=== PATIENT | female | born 1960 | race Caucasian/White ===

== ENCOUNTER 2016-02-22 18:50 | Inpatient (IN) | payer MEDICAID ==
[~2016-02-22] VITALS: Ht 180.3 cm; Wt 145.2 kg
[2016-02-22] VITALS (9 sets, daily range): BP systolic 70–94; BP diastolic 37–58; PULSE 87–120; RESP 18–20; TEMP 99.7; O2SAT 96–100
[~2016-02-22 18:50] MED LIST: ABIL5TAB6 PO; ALBU0.08 NEB; ALPR.5 PO; AMIT50TA3 PO; ASPI81CH CHEW; COLA100C3 PO; FERR325T PO; GABA600T PO; MAPA325T PO; METO-309 PO; MULTTAB67 PO; NITR1SUB3 SL; PRED5TAB PO; ROXI15TA9 PO; ZANTTAB PO; ZYVO600T PO
[2016-02-22] MEDS ORDERED: SODIUM CHLOR 0.9% 1000 ML INJ 900 ML IV ONE (19:00)
[2016-02-22] MEDS ORDERED: SODIUM CHLOR 0.9% 1000 ML INJ 1,000 ML IV ONE ×5 (19:00→20:19)
[2016-02-22] MEDS ORDERED: VANCOMYCIN INJ 1,000 MG in SODIUM CHLOR 0.9% 250 ML INJ 250 ML IV STA ×2 (19:00→20:19)
[2016-02-22] MEDS ORDERED: AZTREONAM INJ 2,000 MG in SODIUM CHLORIDE 0.9% INJ 100 ML IV STA ×2 (19:00→20:19)
[2016-02-22] MEDS ORDERED: metroNIDAZOLE 500 MG INJ 100 ML IV STA ×2 (19:00→20:19)
[2016-02-22] MEDS ORDERED: ETOMIDATE 20 MG/10 ML VIAL ONE (19:42)
[2016-02-22] MEDS ORDERED: MIDAZOLAM 100 MG/ML INJ 100 ML ONE (20:00)
--- NOTE | 2016-02-22 20:08 | RADRPT ---
EXAM DATE/TIME: 02/22/2016 19:45 [facility] COMPARISON: No previous studies available for comparison. INDICATIONS : Shortness of breath. MEDICAL HISTORY : Unobtainable. SURGICAL HISTORY : Unobtainable. ENCOUNTER: Initial ACUITY: 1 day PAIN SCORE: Non-responsive. LOCATION: Bilateral chest FINDINGS: A single view of the chest demonstrates basilar airspace disease, left greater than right. No signifi cant effusion. No pneumothorax. Heart size enlarged. CONCLUSION: 1. Basilar airspace disease, stable to slightly improved from January 24, 2016. Cardiomegaly. Braden Gomez MD on February 22, 2016 at 20:06 Board Certified Radiologist. This report was verified electronically.
[2016-02-22] MEDS ORDERED: SODIUM CHLOR 0.9% 1000 ML INJ 700 ML IV ONE (20:19)
--- NOTE | 2016-02-22 20:41 | RADRPT ---
EXAM DATE/TIME: 02/22/2016 20:07 [facility] COMPARISON: CHEST SINGLE AP, February 22, 2016, 19:45. INDICATIONS : Post Procedure Intubation. MEDICAL HISTORY : Unobtainable. SURGICAL HISTORY : Unobtainable. ENCOUNTER: Initial ACUITY: 1 day PAIN SCORE: Non-responsive. LOCATION: Bilateral chest FINDINGS: Endotracheal tube tip is in the proximal right mainstem bronchus. This should be withdrawn about 3 cm . There is mild basilar airspace disease. No significant effusion. No pneumothorax. CONCLUSION: 1. Intubation with endotracheal tube tip in right mainstem bronchus. This should be withdrawn about 3 cm. Braden Gomez MD on February 22, 2016 at 20:39 Board Certified Radiologist. This report was verified electronically.
[2016-02-22 21:18] LABS: BLOOD GAS BASE EXCESS 7.2 mmol/L (-2-2); BLOOD GAS CARBOXYHEMOGLOBIN 1.9 % (0-4); BLOOD GAS HCO3 33 mmol/L (22-26); BLOOD GAS METHEMOGLOBIN 1.9 % (0-2); BLOOD GAS O2 HGB SATURATION 96 % (90-100); BLOOD GAS OXYGEN CONTENT 19.3 Vol % (12.0-20.0); BLOOD GAS PCO2 68 mmHg (38-42); BLOOD GAS PO2 301 mmHG (61-120); BLOOD GAS TOTAL HGB 13.8 G/DL (12.0-16.0); TEMP CORR TO 98.6
[2016-02-22 21:20] LABS: OXYGEN DEVICE VENTILATOR; VENT SETTINGS AC
[2016-02-22 21:21] LABS: DRAW SITE RT RADIAL; FIO2 100 %; NUMBER OF ARTERIAL PUNCTURES 1; STAT YES; ULNAR PULSE PRESENT
[2016-02-22 21:31] LABS: AUTOMATED NEUTROPHIL # 29.1 TH/MM3 (1.8-7.7); BASOPHIL # 0.1 TH/MM3 (0-0.2); BASOPHIL % 0.4 % (0.0-2.0); EOSINOPHIL # 0.1 TH/MM3 (0-0.4); EOSINOPHIL % 0.2 % (0.0-4.0); HEMATOCRIT 44.7 % (35.0-46.0); LYMPH % 6.4 % (9.0-44.0); LYMPHOCYTE # 2.1 TH/MM3 (1.0-4.8); MEAN CELL VOLUME 86.1 FL (80.0-100.0); MEAN CORPUSCULAR HEMOGLOBIN 26.3 PG (27.0-34.0); MEAN CORPUSCULAR HGB CONC 30.6 % (32.0-36.0); MONO % 4.1 % (0.0-8.0); NEUT % 88.9 % (16.0-70.0); PLATELET COUNT 292 TH/MM3 (150-450); RED BLOOD COUNT 5.19 MIL/MM3 (4.00-5.30); RED CELL DISTRIBUTION WIDTH 17.6 % (11.6-17.2); WHITE BLOOD COUNT 32.7 TH/MM3 (4.0-11.0)
[2016-02-22 21:41] LABS: APTT (PATIENT) 31.7 SEC (24.3-30.1); INTERNATIONAL NORMALIZED RATIO 1.3 RATIO; PROTHROMBIN TIME - PATIENT 14.7 SEC (9.8-11.6)
[2016-02-22 21:51] LABS: HEMO FLAGS AUTO DIFF
--- NOTE | 2016-02-22 22:02 | PD ---
HPI Chief Complaint: Respiratory Distress Time Seen by Provider: 19:00 Travel History International Travel<30 days: No Contact w/Intl Traveler<30days: No Traveled to known affect area: No History of Present Illness HPI Patient is a 56 year old female who presents to ER from [place] with respiratory distress. Patient was noted to have decreased alertness and was responding very slowly at the detention. As per nursing, patient had a nonproductive cough with diminished lung sounds to her lungs. Patient was on continuous oxygen at 2 L, reports that her pulse ox was 84%. Call made to EMS to transport her to ER. Patient was hypoxic when [facility] arrived on scene, patient was placed on CPAP on arrival to emergency room. Patient reports shortness of breath upon arrival to ER. Patient currently on Macrobid for 7 days for diagnoses of ESBL with end date 02/23/16. Patient currently on Levaquin 500 mg for 7 days for stomach infection, stop date February 28, 2016, patient unable to provide history of present illness at this time. PFSH Past Medical History Anemia: Yes Anxiety: Yes Depression: Yes Cancer: No Cardiovascular Problems: Yes COPD: Yes Cerebrovascular Accident: No Diabetes: No Diminished Hearing: No Diverticulitis: Yes Endocrine: No GERD: Yes Herniated Disk: Yes Kidney Stones: Yes Musculoskeletal: Yes Psychiatric: Yes Reproductive: No Respiratory: Yes (SOB; WEARS O2 NIGHTLY) Sleep Apnea: Yes Thyroid Disease: No Past Surgical History Abdominal Surgery: Yes (COLOSTOMY; GASTRIC BYPASS) Social History Alcohol Use: No Tobacco Use: No Substance Use: No Allergies-Medications (Allergen,Severity, Reaction): Coded Allergies: Penicillin (Verified Allergy, Unknown, 02/22/16) *MDRO Multi-Drug Resistant Organism (Verified Adverse Reaction, Unknown, MRSA, 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 Zyvox (Linezolid) 600 Mg Tab 600 Mg PO Q12H 6 Days Lopressor (Metoprolol Tartrate) 50 Mg Tab 50 Mg PO Q12HR 30 Days Roxicodone (Oxycodone HCl) 15 Mg Tab 15 Mg PO Q4HR PRN Xanax (Alprazolam) 0.5 Mg Tab 0.5 Mg PO Q4H PRN Reported Multiple Vitamin 1 Tab 1 Tab PO DAILY Ferrous Sulfate 325 Mg Tab 325 Mg PO DAILY Mapap (Acetaminophen) 325 Mg Tab 650 Mg PO Q4HR PRN NTE: 3,000 MG IN 24 HRS Albuterol Neb (Albuterol Sulfate) 2.5 Mg/3 Ml Neb 2.5 Mg NEB Q8HR NEB PRN Abilify (Aripiprazole) 5 Mg Tab 5 Mg PO DAILY Nitroglycerin SL (Nitroglycerin) 0.4 Mg Subl 0.4 Mg SL DIRECTED PRN ONE TABLET UNDER THE TONGUE NEEDED FOR CHEST PAIN, MAY REPEAT EVERY FIVE MINUTES FOR A TOTAL OF 3 DOSES OR CALL 911 IF NO RELIEF Colace (Docusate Sodium) 100 Mg Cap 100 Mg PO BID Zantac 150 Maximum Strength (Ranitidine HCl) 150 Mg Tab 150 Mg PO BID Gabapentin 600 Mg Tab 1,200 Mg PO TID Aspirin 81 Mg Chew 81 Mg CHEW DAILY Amitriptyline (Amitriptyline HCl) 50 Mg Tab 50 Mg PO HS Review of Systems ROS Limitations: Altered Mental Status, Poor Historian, Other: (respiratory distress) Except as stated in HPI: all other systems reviewed are Neg Respiratory: Positive: Shortness of Breath Physical Exam Narrative GENERAL: Patient is in moderate distress SKIN: Warm and dry. HEAD: Atraumatic. Normocephalic. EYES: Pupils equal and round. No scleral icterus. No injection or drainage. ENT: No nasal bleeding or discharge. Mucous membranes pink and moist. NECK: Trachea midline. No JVD. CARDIOVASCULAR: Tachycardic. No murmur appreciated. RESPIRATORY: Accessory muscle use. Diffuse wheezing bilateral lobes of the lungs. Breath sounds equal bilaterally. GASTROINTESTINAL: Abdomen soft, non-tender, nondistended. Hepatic and splenic margins not palpable. MUSCULOSKELETAL: No obvious deformities. No clubbing. No cyanosis. No edema. NEUROLOGICAL: Awake and alert. No obvious cranial nerve deficits. Data Data Last Documented VS Vital Signs Date Time Temp Pulse Resp B/P Pulse Ox O2 Delivery O2 Flow Rate FiO2 02/22/16 21:30 103 18 82/43 100 Ventilator 02/22/16 21:30 60 02/22/16 19:27 99.7 Orders Electrocardiogram (02/22/16 19:00) Complete Blood Count With Diff (02/22/16 19:00) Comprehensive Metabolic Panel (02/22/16 19:00) Prothrombin Time / Inr (Pt) (02/22/16 19:00) Act Partial Throm Time (Ptt) (02/22/16 19:00) Magnesium (Mg) (02/22/16 19:00) Ckmb (Isoenzyme) Profile (02/22/16 19:00) Troponin I (02/22/16 19:00) Urinalysis - C+S If Indicated (02/22/16 19:00) Influenzae A/B Antigen (02/22/16 19:00) Blood Culture (02/22/16 19:00) Chest, Single Ap (02/22/16 19:00) Arterial Blood Gas (Abg) (02/22/16 19:00) Blood Glucose (02/22/16 19:00) Ecg Monitoring (02/22/16 19:00) Iv Access Insert/Monitor (02/22/16 19:00) Oximetry (02/22/16 19:00) Oxygen Administration (02/22/16 19:00) Vancomycin Inj (Vancomycin Inj) (02/22/16 19:00) Aztreonam Inj (Azactam Inj) (02/22/16 19:00) Metronidazole 500 Mg Inj (Flagyl 500 Mg (02/22/16 19:00) Sodium Chlor 0.9% 1000 Ml Inj (Ns 1000 M (02/22/16 19:00) Sodium Chlor 0.9% 1000 Ml Inj (Ns 1000 M (02/22/16 19:00) Sodium Chlor 0.9% 1000 Ml Inj (Ns 1000 M (02/22/16 19:00) Sodium Chlor 0.9% 1000 Ml Inj (Ns 1000 M (02/22/16 19:00) B-Type Natriuretic Peptide (02/22/16 19:00) Etomidate Inj (Amidate Inj) (02/22/16 19:42) Midazolam Inj (Versed Inj) (02/22/16 20:00) Chest, Single Ap (02/22/16 ) Vancomycin Inj (Vancomycin Inj) (02/22/16 20:19) Aztreonam Inj (Azactam Inj) (02/22/16 20:19) Metronidazole 500 Mg Inj (Flagyl 500 Mg (02/22/16 20:19) Sodium Chlor 0.9% 1000 Ml Inj (Ns 1000 M (02/22/16 20:19) Sodium Chlor 0.9% 1000 Ml Inj (Ns 1000 M (02/22/16 20:19) Sodium Chlor 0.9% 1000 Ml Inj (Ns 1000 M (02/22/16 20:19) Neurological Rass Scale Q30MX2,Q2HX4,Q4H (02/22/16 20:48) Fentanyl Drip (Fentanyl Drip) (02/22/16 21:00) Chest, Single Ap (02/22/16 ) Admit Order (Ed Use Only) (02/22/16 21:36) CKMB (02/22/16 20:35) CKMB% (02/22/16 20:35) Labs Laboratory Tests Test 02/22/16 02/22/16 20:35 20:50 White Blood Count 32.7 TH/MM3 Red Blood Count 5.19 MIL/MM3 Hemoglobin 13.7 GM/DL Hematocrit 44.7 % Mean Corpuscular Volume 86.1 FL Mean Corpuscular Hemoglobin 26.3 PG Mean Corpuscular Hemoglobin 30.6 % Concent Red Cell Distribution Width 17.6 % Platelet Count 292 TH/MM3 Mean Platelet Volume 10.7 FL Neutrophils (%) (Auto) 88.9 % Lymphocytes (%) (Auto) 6.4 % Monocytes (%) (Auto) 4.1 % Eosinophils (%) (Auto) 0.2 % Basophils (%) (Auto) 0.4 % Neutrophils # (Auto) 29.1 TH/MM3 Lymphocytes # (Auto) 2.1 TH/MM3 Monocytes # (Auto) 1.3 TH/MM3 Eosinophils # (Auto) 0.1 TH/MM3 Basophils # (Auto) 0.1 TH/MM3 CBC Comment AUTO DIFF Differential Total Cells 100 Counted Neutrophils % (Manual) 93 % Band Neutrophils % 1 % Lymphocytes % 3 % Monocytes % 3 % Neutrophils # (Manual) 30.7 TH/MM3 Differential Comment FINAL DIFF MANUAL Platelet Estimate NORMAL Platelet Morphology Comment NORMAL Ovalocytes 1+ Prothrombin Time 14.7 SEC Prothromb Time International 1.3 RATIO Ratio Activated Partial 31.7 SEC Thromboplast Time Sodium Level 141 MEQ/L Potassium Level 5.7 MEQ/L Chloride Level 101 MEQ/L Carbon Dioxide Level 33.7 MEQ/L Anion Gap 6 MEQ/L Blood Urea Nitrogen 30 MG/DL Creatinine 1.67 MG/DL Estimat Glomerular Filtration 32 ML/MIN Rate Random Glucose 120 MG/DL Calcium Level 8.4 MG/DL Magnesium Level 2.2 MG/DL Total Bilirubin 0.3 MG/DL Aspartate Amino Transf 32 U/L (AST/SGOT) Alanine Aminotransferase 23 U/L (ALT/SGPT) Alkaline Phosphatase 118 U/L Total Creatine Kinase 112 U/L Creatine Kinase MB LESS THAN 0.5 NG/ML Troponin I LESS THAN 0.02 NG/ML B-Type Natriuretic Peptide 20 PG/ML Total Protein 5.4 GM/DL Albumin 1.7 GM/DL Blood Gas Puncture Site RT RADIAL Blood Gas Patient Temperature 98.6 Blood Gas HCO3 33 mmol/L Blood Gas Base Excess 7.2 mmol/L Blood Gas Oxygen Saturation 96 % Arterial Blood pH 7.31 Arterial Blood Partial 68 mmHg Pressure CO2 Arterial Blood Partial 301 mmHG Pressure O2 Arterial Blood Oxygen Content 19.3 Vol % Arterial Blood 1.9 % Carboxyhemoglobin Arterial Blood Methemoglobin 1.9 % Blood Gas Hemoglobin 13.8 G/DL Oxygen Delivery Device VENTILATOR Blood Gas Ventilator Setting AC Blood Gas Inspired Oxygen 100 % MDM Medical Decision Making Medical Screen Exam Complete: Yes Emergency Medical Condition: Yes Interpretation(s) EKG at 2046: Sinus tach at 103 beats minute, QT/QTC: 314/374 Vital Signs Date Time Temp Pulse Resp B/P Pulse Ox O2 Delivery O2 Flow Rate FiO2 02/22/16 20:54 100 18 94/51 100 Ventilator 02/22/16 19:55 117 82/58 96 02/22/16 19:40 96 BiPAP 02/22/16 19:40 18 96 BiPAP 02/22/16 19:35 103 18 96 BiPAP 02/22/16 19:27 99.7 120 18 70/37 96 02/22/16 19:00 100 100 Differential Diagnosis Pneumonia, sepsis, CHF, COPD exacerbation, influenza, UTI, urosepsis Narrative Course Patient is a 56-year-old female who presents to the emergency room from [place] with acute onset shortness of breath. Patient presents to emergency room tachycardic, hypoxic, hypotensive. Patient was able to tell me that she felt short of breath, patient with history of COPD, patient was initially placed on BiPAP. Patient reevaluated at patient was placed on BiPAP, reports that she is not feeling any better. Patient persistently tachycardic with a heart rate of 117 and a blood pressure of 82/58. Patient in severe respiratory distress, decision was taken to the patient for airway protection. Patient does have SIRS criteria on arrival to ER. 30 cc/kg IV bolus of fluids ordered as well as broad-spectrum IV Unable to obtain peripheral line on patient, central line placed at right EJ broad spectrum antibiotics initiated in ER Patient hypotensive emergency room, levophed ordered Pt accepted by Dr Conklin Critical Care Narrative Aggregate critical care time was 60 minutes. Time to perform other separately billable procedures was not included in the critical care time. My time did not include minutes spent treating any other patients simultaneously or on activities that did not directly contribute to the patient's treatment. The services I provided to this patient were to treat and/or prevent clinically significant deterioration that could result in: , decompensation, deterioration I provided critical care services requiring my management, as noted below: Chart data review, documentation time, medication orders and management, vital sign assessments/reviewing monitor data, ordering and reviewing lab tests, ordering and interpreting/reviewing x-rays and diagnostic studies, care of the patient and discussion of the patient with the admitting physicians. Procedures Procedure Narrative After the risks and benefits were discussed the following procedure was performed: INTUBATION: The patient was put in optimal position for the procedure. Rapid sequence intubation was initiated by me using 20milligrams of etomidate IV and 125 milligrams of succinylcholine IV. The patient was intubated with a 7.5 cuffed endotracheal tube. Tube placement was confirmed by visualization of the tube and balloon passing through the cords, capnometry and subsequent chest x-ray. Breath sounds were equal and well aerated bilaterally postintubation. No breath sounds over stomach. Patient tolerated procedure well. CENTRAL VENOUS LINE: The site was prepped with Betadine and sterilely draped. It was infiltrated with 1% lidocaine plain. The deep vein was cannulated using normal Seldinger technique. A triple lumen central line was placed in the right IJ site and secured with simple interrupted suture. The site was sterilely dressed. The patient tolerated the procedure well. Diagnosis Primary Impression: VDRF Additional Impressions: Sepsis sepsis Admitting Information Admitting Physician Requests: Trina Reed 6, 2017 22:02
[2016-02-22 22:09] LABS: BANDS 1 % (0-6); NEUTROPHIL # MANUAL DIFF 30.7 TH/MM3 (1.8-7.7); OVALOCYTES 1+ (NORMAL); PLATELET ESTIMATE SMEAR NORMAL (NORMAL); PLATELET MORPHOLOGY NORMAL (NORMAL); POLYS (SEG NEUTROPHILS) 93 % (16-70); SCAN/DIFF FINAL DIFF MANUAL; WBC DIFF SAMPLE 100
--- NOTE | 2016-02-22 22:21 | RADRPT ---
EXAM DATE/TIME: 02/22/2016 21:33 [facility] COMPARISON: No previous studies available for comparison. INDICATIONS : Post Procedure Central Line. MEDICAL HISTORY : Unobtainable. SURGICAL HISTORY : Unobtainable. ENCOUNTER: Initial ACUITY: 1 day PAIN SCORE: Non-responsive. LOCATION: Bilateral chest FINDINGS: A single view of the chest demonstrates endotracheal tube in satisfactory position. Right central prasanth e in right brachiocephalic vein. Subsegmental airspace disease at the bases, left greater than right. No effusion. No pneumothorax. CONCLUSION: 1. Endotracheal tube and right central line in satisfactory position. Subsegmental airspace disease a t the bases, left greater than right. Braden Gomez MD on February 22, 2016 at 22:18 Board Certified Radiologist. This report was verified electronically.
[2016-02-22] MEDS: fentaNYL DRIP 250 ML IV SCH (22:31)
[2016-02-22] MEDS ORDERED: RESP: ALBUTEROL 2.5 MG/IPRATROPIUM 0.5 MG NEB (SCH) ONE (22:35)
[2016-02-22 22:36] LABS: ALKALINE PHOSPHATASE 118 U/L (45-117); ALT (GPT) 23 U/L (10-53); ANION GAP 6 MEQ/L (5-15); AST (GOT) 32 U/L (15-37); BICARBONATE 33.7 MEQ/L (21.0-32.0); BLOOD UREA NITROGEN 30 MG/DL (7-18); CHLORIDE 101 MEQ/L (98-107); CREATINE KINASE 112 U/L (26-192); GLOMERULAR FILTRATION RATE 32 ML/MIN (>89); MAGNESIUM 2.2 MG/DL (1.5-2.5); SODIUM (NA) 141 MEQ/L (136-145); TOTAL BILIRUBIN ADULT 0.3 MG/DL (0.2-1.0)
[2016-02-22 22:37] LABS: POTASSIUM 5.7 MEQ/L (3.5-5.1)
[2016-02-22] MEDS ORDERED: MAGNESIUM HYDROXIDE SUSP 30 ML CUP PO PRN (22:45)
[2016-02-22] MEDS ORDERED: MAGNESIUM OXIDE 400 MG TAB PO PRN (22:45)
[2016-02-22] MEDS ORDERED: GLUCAGON 1 MG/ML VIAL OTHER PRN (22:45)
[2016-02-22] MEDS ORDERED: POTASSIUM PHOSPHATE MONOBASIC 500 MG TAB PO/TUBE PRN (22:45)
[2016-02-22] MEDS ORDERED: DEXTROSE 50% IN WATER 50 ML VIAL(D50) IV PUSH PRN (22:45)
[2016-02-22] MEDS ORDERED: ONDANSETRON HCL 4 MG/2 ML VIAL IV PRN (22:45)
[2016-02-22] MEDS ORDERED: SENNOSIDES 8.6 MG TAB PO PRN (22:45)
[2016-02-22] MEDS ORDERED: POTASSIUM PHOSPHATE INJ 30 MMOL in SODIUM CHLOR 0.9% 250 ML INJ 250 ML IV PRN (22:45)
[2016-02-22] MEDS ORDERED: BISACODYL 10 MG SUPP RECTAL PRN (22:45)
[2016-02-22] MEDS ORDERED: MISCELLANEOUS NURSING INFORMATION XX SCH (22:45)
[2016-02-22] MEDS ORDERED: CHLORHEXIDINE GLUCONATE 2 % 1 PACK (2 CLOTHS) TOP PRN (22:45)
[2016-02-22] MEDS ORDERED: SODIUM PHOSPHATE INJ 30 MMOL in SODIUM CHLOR 0.9% 250 ML INJ 240 ML IV PRN (22:45)
[2016-02-22] MEDS ORDERED: MAGNESIUM SULFATE INJ 4 GM in SODIUM CHLORIDE 0.9% INJ 92 ML IV PRN (22:45)
[2016-02-22] MEDS ORDERED: POTASSIUM CHLOR 40 MEQ PREMIX 100 ML IV PRN (22:45)
[2016-02-22] MEDS ORDERED: MAGNESIUM SULFATE INJ 2 GM in SODIUM CHLORIDE 0.9% INJ 96 ML IV PRN (22:45)
[2016-02-22] MEDS ORDERED: POTASSIUM CL 40 MEQ/30 ML LIQ UDC PO/TUBE PRN ×2 (22:45)
[2016-02-22] MEDS ORDERED: POTASSIUM CHLOR 20 MEQ PREMIX 100 ML IV PRN ×2 (22:45)
[2016-02-22] MEDS ORDERED: SODIUM CHLORIDE 0.9% FLUSH 5 ML FLUSH IV FLUSH PRN (22:45)
[2016-02-22] MEDS ORDERED: POTASSIUM PHOSPHATE MONOBASIC 500 MG TAB PO PRN (22:45)
[2016-02-22 22:50] LABS: CKMB LESS THAN 0.5 NG/ML (0.5-3.6)
[2016-02-22] MEDS ORDERED: TERBUTALINE INJ 1 MG/ML AMP SQ PRN (23:00)
[2016-02-23] VITALS (24 sets, daily range): BP systolic 78–120; BP diastolic 46–73; PULSE 84–124; RESP 16–24; TEMP 98.1–101.1; O2SAT 95–100
[2016-02-23 00:29] LABS: BLOOD GAS BASE EXCESS 4.5 mmol/L (-2-2); BLOOD GAS CARBOXYHEMOGLOBIN 2.2 % (0-4); BLOOD GAS HCO3 28 mmol/L (22-26); BLOOD GAS METHEMOGLOBIN 1.6 % (0-2); BLOOD GAS O2 HGB SATURATION 95 % (90-100); BLOOD GAS OXYGEN CONTENT 16.2 Vol % (12.0-20.0); BLOOD GAS PCO2 39 mmHg (38-42); BLOOD GAS PO2 79 mmHG (61-120); BLOOD GAS TOTAL HGB 12.1 G/DL (12.0-16.0); CRITICAL VALUE NO; DRAW SITE RT BRACHIAL; FIO2 60 %; NUMBER OF ARTERIAL PUNCTURES 1; OXYGEN DEVICE VENTILATOR; STAT NO; ULNAR PULSE PRESENT; VENT SETTINGS AC/PC20/P25/IT1.0/+5
[2016-02-23] MEDS: NOREPINEPHRINE-DEXTROSE DRIP 250 ML IV SCH ×3 (01:13→19:52)
[2016-02-23] MEDS ORDERED: fentaNYL DRIP 250 ML ONE (01:16)
[2016-02-23] MEDS: SODIUM CHLOR 0.9% 1000 ML INJ 1,000 ML IV SCH ×3 (01:33→22:35)
[2016-02-23] MEDS: fentaNYL DRIP 250 ML IV SCH (01:34)
[2016-02-23 02:39] LABS: BACTERIA, URINE MANY /hpf; BLOOD, URINE MOD (NEG); CALCIUM OXALATE CRYSTALS,URINE OCC /hpf; COMMENT (UR) CULTURE INDICATED; CULTURE IF INDICATED CULTURE INDICATED; GLUCOSE,URINE NEG (NEG); KETONE, URINE NEG (NEG); MUCUS URINE FEW /lpf (OCC); NITRITE,URINE NEG (NEG); SQUAMOUS EPITHELIAL CELL URINE 2 /hpf (0-5)
[2016-02-23 02:40] LABS: URINE COLOR DARK-BROWN (YELLW/STRAW)
[2016-02-23] MEDS: MIDAZOLAM 100 MG/ML INJ 100 ML IV SCH ×2 (02:44→05:39)
[2016-02-23] MEDS: HEPARIN SODIUM - SQ 10,000 UNITS/ML VIAL SQ SCH ×2 (02:45→10:48)
--- NOTE | 2016-02-23 03:27 | RADRPT ---
EXAM DATE/TIME: 02/23/2016 02:41 [facility] COMPARISON: CHEST SINGLE AP, February 22, 2016, 21:33. INDICATIONS : Shortness of breath, possible pulmonary disease. MEDICAL HISTORY : None. SURGICAL HISTORY : None. ENCOUNTER: Subsequent ACUITY: 2 days PAIN SCORE: Non-responsive. LOCATION: Bilateral chest FINDINGS: There is persistent consolidation left mid and lower lung was also delineation of the entire left hem idiaphragm. This is stable in appearance there is a new patchy area of infiltrate in the lower right lung. The right hemidiaphragm is well delineated. Endotracheal tube well above the yaritza. Right internal jugular catheter tip at the origin of the superior vena cava. Gastric tube traverses the fi eld-of-view. CONCLUSION: Persistent left lower lung consolidation and new patchy area of infiltrate in the lower right lung. Pb Collins MD on February 23, 2016 at 3:24 Board Certified Radiologist. This report was verified electronically.
[2016-02-23] MEDS: CHLORHEXIDINE GLUCONATE 2 % 1 PACK (2 CLOTHS) TOP SCH (04:00)
[2016-02-23] MEDS: RESP: ALBUTEROL 2.5 MG/IPRATROPIUM 0.5 MG NEB (SCH) INH ×4 (04:35→20:28)
--- NOTE | 2016-02-23 05:09 | HHI.HP ---
[facility] Service Critical Care Medicine Primary Care Physician Unknown Admission Diagnosis VDRF - Sepsis Diagnosis: Travel History International Travel<30 Days: No Contact w/Intl Traveler <30 Da: No Traveled to Known Affected Are: No History of Present Illness Patient is a 56 year old female who presented to ED from a half-way respiratory distress. Patient was noted to have decreased alertness at the half-way. As per nursing, patient had a nonproductive cough with diminished lung sounds to her lungs. Patient was on continuous oxygen at 2 L, reports that her pulse ox was 84%. Patient was hypoxic when [facility] arrived on scene, patient was placed on BiPAP and transported to the ED. Upon arrival to the ED the patient had acute hypoxic respiratory failure and was intubated. The patient was noted to be hypotensive, central line was placed vasopressor support was initiated. The patient was recently discharged and was currently on antibiotics for ESBL, and a UTI . Labs were obtained and WBC count was noted to be elevated. Critical care medicine was consulted for management and treatment. History PFSH Past Medical History Anemia: Yes Anxiety: Yes Depression: Yes Cancer: No Cardiovascular Problems: Yes COPD: Yes Cerebrovascular Accident: No Diabetes: No Diminished Hearing: No Diverticulitis: Yes Endocrine: No GERD: Yes Herniated Disk: Yes Kidney Stones: Yes Musculoskeletal: Yes Psychiatric: Yes Reproductive: No Respiratory: Yes (SOB; WEARS O2 NIGHTLY) Sleep Apnea: Yes Thyroid Disease: No Past Surgical History Abdominal Surgery: Yes (COLOSTOMY; GASTRIC BYPASS) Social History Alcohol Use: No Tobacco Use: No Substance Use: No Allergies-Medications Allergies-Medications (Allergen,Severity, Reaction): Coded Allergies: Penicillin (Verified Allergy, Unknown, 02/22/16) *MDRO Multi-Drug Resistant Organism (Verified Adverse Reaction, Unknown, MRSA, 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 Zyvox (Linezolid) 600 Mg Tab 600 Mg PO Q12H 6 Days Lopressor (Metoprolol Tartrate) 50 Mg Tab 50 Mg PO Q12HR 30 Days Roxicodone (Oxycodone HCl) 15 Mg Tab 15 Mg PO Q4HR PRN Xanax (Alprazolam) 0.5 Mg Tab 0.5 Mg PO Q4H PRN Reported Multiple Vitamin 1 Tab 1 Tab PO DAILY Ferrous Sulfate 325 Mg Tab 325 Mg PO DAILY Mapap (Acetaminophen) 325 Mg Tab 650 Mg PO Q4HR PRN NTE: 3,000 MG IN 24 HRS Albuterol Neb (Albuterol Sulfate) 2.5 Mg/3 Ml Neb 2.5 Mg NEB Q8HR NEB PRN Abilify (Aripiprazole) 5 Mg Tab 5 Mg PO DAILY Nitroglycerin SL (Nitroglycerin) 0.4 Mg Subl 0.4 Mg SL DIRECTED PRN ONE TABLET UNDER THE TONGUE NEEDED FOR CHEST PAIN, MAY REPEAT EVERY FIVE MINUTES FOR A TOTAL OF 3 DOSES OR CALL 911 IF NO RELIEF Colace (Docusate Sodium) 100 Mg Cap 100 Mg PO BID Zantac 150 Maximum Strength (Ranitidine HCl) 150 Mg Tab 150 Mg PO BID Gabapentin 600 Mg Tab 1,200 Mg PO TID Aspirin 81 Mg Chew 81 Mg CHEW DAILY Amitriptyline (Amitriptyline HCl) 50 Mg Tab 50 Mg PO HS ROS Review of Systems ROS Limitations: Altered Mental Status, Poor Historian, Other: (respiratory distress) Except as stated in HPI: all other systems reviewed are Neg Respiratory: Positive: Shortness of Breath Physical Exam Vital Signs Vital Signs Date Time Temp Pulse Resp B/P Pulse Ox O2 Delivery O2 Flow Rate FiO2 02/23/16 04:41 100 45 02/23/16 04:37 99.9 97 20 86/48 100 02/23/16 02:57 97 20 97/55 100 Ventilator 50 02/23/16 02:00 94 20 101/54 99 Ventilator 50 02/23/16 01:51 97 18 116/51 99 Ventilator 50 02/23/16 01:34 87 20 86/49 100 Ventilator 50 02/23/16 01:12 100 60 02/23/16 01:00 86 20 88/51 100 Ventilator 50 02/23/16 00:00 84 20 78/48 100 Ventilator 60 02/22/16 23:00 87 20 86/54 100 Ventilator 02/22/16 22:16 99 20 80/50 100 Ventilator 60 02/22/16 21:59 60 02/22/16 21:30 103 18 82/43 100 Ventilator 02/22/16 21:30 98 60 02/22/16 20:54 100 18 94/51 100 Ventilator 02/22/16 19:55 117 82/58 96 02/22/16 19:40 96 BiPAP 02/22/16 19:40 18 96 BiPAP 02/22/16 19:35 103 18 96 BiPAP 02/22/16 19:27 99.7 120 18 70/37 96 02/22/16 19:00 100 100 02/22/16 18:10 100 100 Physical Exam GENERAL: A super morbidly obese female lying in bed intubated and sedated SKIN: Warm and dry. HEAD: Atraumatic. Normocephalic. EYES: Pupils equal and round. No scleral icterus. No injection or drainage. ENT: No nasal bleeding or discharge. Mucous membranes pink and moist. NECK: Trachea midline. No JVD. CARDIOVASCULAR: Normal rate, regular rhythm. RESPIRATORY: Mechanical ventilation Clear to auscultation. Breath sounds equal bilaterally. GASTROINTESTINAL: Abdomen obese soft, non-tender, nondistended. Well-healed midline scar No guarding. Colostomy left upper quadrant MUSCULOSKELETAL: Extremities without clubbing, cyanosis, or edema. No obvious deformities. NEUROLOGICAL: GCS 3T Laboratory Laboratory Tests Test 02/22/16 02/22/16 02/22/16 02/23/16 20:35 20:50 23:02 00:22 Prothrombin Time 14.7 Prothromb Time International 1.3 Ratio Activated Partial 31.7 Thromboplast Time Sodium Level 141 Potassium Level 5.7 Chloride Level 101 Carbon Dioxide Level 33.7 Anion Gap 6 Blood Urea Nitrogen 30 Creatinine 1.67 Estimat Glomerular Filtration 32 Rate Random Glucose 120 Calcium Level 8.4 Magnesium Level 2.2 Total Bilirubin 0.3 Aspartate Amino Transf 32 (AST/SGOT) Alanine Aminotransferase 23 (ALT/SGPT) Alkaline Phosphatase 118 Total Creatine Kinase 112 Creatine Kinase MB LESS THAN 0.5 Troponin I LESS THAN 0.02 B-Type Natriuretic Peptide 20 Total Protein 5.4 Albumin 1.7 White Blood Count 32.7 Red Blood Count 5.19 Hemoglobin 13.7 Hematocrit 44.7 Mean Corpuscular Volume 86.1 Mean Corpuscular Hemoglobin 26.3 Mean Corpuscular Hemoglobin 30.6 Concent Red Cell Distribution Width 17.6 Platelet Count 292 Mean Platelet Volume 10.7 Neutrophils (%) (Auto) 88.9 Lymphocytes (%) (Auto) 6.4 Monocytes (%) (Auto) 4.1 Eosinophils (%) (Auto) 0.2 Basophils (%) (Auto) 0.4 Neutrophils # (Auto) 29.1 Lymphocytes # (Auto) 2.1 Monocytes # (Auto) 1.3 Eosinophils # (Auto) 0.1 Basophils # (Auto) 0.1 CBC Comment AUTO DIFF Differential Total Cells 100 Counted Neutrophils % (Manual) 93 Band Neutrophils % 1 Lymphocytes % 3 Monocytes % 3 Neutrophils # (Manual) 30.7 Differential Comment FINAL DIFF MANUAL Platelet Estimate NORMAL Platelet Morphology Comment NORMAL Ovalocytes 1+ Urine Color DARK-BROWN Urine Turbidity CLOUDY Urine pH 7.0 Urine Specific [place] 1.028 Urine Protein 100 Urine Glucose (UA) NEG Urine Ketones NEG Urine Occult Blood MOD Urine Nitrite NEG Urine Bilirubin NEG Urine Urobilinogen 2.0 Urine Leukocyte Esterase LARGE Urine RBC 12 Urine WBC Urine Squamous Epithelial 2 Cells Urine Calcium Oxalate Crystals OCC Urine Bacteria MANY Urine Mucus FEW Microscopic Urinalysis Comment CULTURE INDICATED Phosphorus Level 4.2 Blood Gas Puncture Site RT RADIAL RT BRACHIAL Blood Gas Patient Temperature 98.6 97.0 Blood Gas HCO3 33 28 Blood Gas Base Excess 7.2 4.5 Blood Gas Oxygen Saturation 96 95 Arterial Blood pH 7.31 7.47 Arterial Blood Partial 68 39 Pressure CO2 Arterial Blood Partial 301 79 Pressure O2 Arterial Blood Oxygen Content 19.3 16.2 Arterial Blood 1.9 2.2 Carboxyhemoglobin Arterial Blood Methemoglobin 1.9 1.6 Blood Gas Hemoglobin 13.8 12.1 Oxygen Delivery Device VENTILATOR VENTILATOR Blood Gas Ventilator Setting AC AC/PC20/P25/IT1.0/+5 Blood Gas Inspired Oxygen 100 60 Lactic Acid Level 0.8 Date/Time Procedure Status Source Growth 02/22/16 20:35 Urine Culture Received Urine Catheterized Urine Pending 02/22/16 20:35 Aerobic Blood Culture Received Blood Peripheral Pending 02/22/16 20:35 Anaerobic Blood Culture Received Blood Peripheral Pending Result Diagram: 02/22/16203402/22/162034 Imaging Last 24 hours Impressions Chest X-Ray 02/22/16 1900 Signed Impressions: Service Date/Time: Monday, February 22, 2016 19:45 - CONCLUSION: 1. Basilar airspace disease, stable to slightly improved from January 24, 2016. Cardiomegaly. Braden Gomez MD Septic Shock Reassessment Heart: Regular rate and rhythm Lungs: Clear Skin: Warm Peripheral Pulses: Bounding Right Radial Bounding Left Radial Capillary Refill: Brisk Assessment and Plan Assessment and Plan This is a 56-year-old female with altered mental status with acute hypoxic respiratory failure is likely secondary to sepsis. The patient has had a previous admission approximately 12 weeks ago. Presents with hypotension requiring vasopressor support and elevated WBC count. Patient is critically ill and septic shock, and prognosis is guarded. Neurologic: Altered mental status Toxic /metabolic encephalopathy -GCS 3T Intubated and sedated currently on propofol and Versed infusion -Sedation holiday per ICU protocol Respiratory: Obstructive sleep apnea Acute hypoxic respiratory failure -Maintain O2 sat greater than 92%, wean FiO2 -Maintain tidal volume 6-8 cc/per ideal body weight -Mechanical ventilation settingsrate 20 IP 25 IT 1 PEEP 5 FIO2 60% Cardiovascular: Hypotension secondary to septic shock History of hypertension -Continue norepinephrine infusion, maintain map greater than 65 mmHg Renal: NADIR Renal insufficiency -Maintain Ocampo -- Strict I/Os FEN/GI: -Insert OGT, plan for tube feeds today -Dietary consult -She was bolused with 4 L in ED -IVF LR 100 cc/hour -Bowel regimen Heme/ID: Multilobar pneumonia (01/30 discharge hospital) UTI -Monitor lactate level -ID consult-appreciate recommendations -Follow-up blood, sputum and urine cultures -Patient was still on Macrobid status post discharge from hospital weeks ago, for UTI Endocrine: Monitor blood glucose levels per ICU protocol -- SSI Prophylaxis: GI Prophylaxis Protonix DVT Prophylaxis -- SCDs Heparin Lines: Right IJ central line Dr. Bundy 02/22/16, peripheral IVs 2 Dispo: This patient remains critically ill with one or more organ systems which are or may become a threat to life. I have spent in excess of 53 minutes discontinuously in the care and management of this patient. This time is exclusive of procedures, and includes, but is not limited to, evaluation of the patient, review of the medical record, discussions with family, consultants, nursing staff, or respiratory therapy, and documentation in the medical record. Code Status Full code Discussed Condition With ED RN at bedside Suzanne Conklin MD Feb 23, 2016 05:09
[2016-02-23] MEDS: INSULIN NovoLIN REGULAR SUPPLEMENTAL SCALE SQ SCH ×4 (05:39→19:50)
[2016-02-23] MEDS: CHLORHEXIDINE 0.12% (ORAL KIT) 15 ML CUP MT SCH ×2 (08:00→20:00)
[2016-02-23] MEDS: PANTOPRAZOLE SODIUM 40 MG VIAL IV SCH (08:33)
[2016-02-23] MEDS: SODIUM CHLORIDE 0.9% FLUSH 5 ML FLUSH IV FLUSH SCH ×2 (08:34→19:50)
[2016-02-23 10:40] LABS: BICARBONATE 26.4 MEQ/L (21.0-32.0); MAGNESIUM 1.8 MG/DL (1.5-2.5); POTASSIUM 3.8 MEQ/L (3.5-5.1)
[2016-02-23] MEDS: DOCUSATE SODIUM 100 MG/10 ML UDC G-TUBE SCH (10:45)
[2016-02-23] MEDS ORDERED: MISCELLANEOUS PHARMACY INFORMATION XX PRN ×2 (11:00)
[2016-02-23] MEDS ORDERED: ASP: Documented allergy to Penicillins or Cephalosporins XX PRN (11:00)
[2016-02-23 11:49] LABS: AUTOMATED NEUTROPHIL # 35.1 TH/MM3 (1.8-7.7); BASOPHIL # 0.2 TH/MM3 (0-0.2); BASOPHIL % 0.5 % (0.0-2.0); EOSINOPHIL % 0.1 % (0.0-4.0); HEMATOCRIT 41.7 % (35.0-46.0); LYMPH % 3.7 % (9.0-44.0); LYMPHOCYTE # 1.4 TH/MM3 (1.0-4.8); MEAN CELL VOLUME 83.8 FL (80.0-100.0); MEAN CORPUSCULAR HEMOGLOBIN 25.8 PG (27.0-34.0); MEAN CORPUSCULAR HGB CONC 30.8 % (32.0-36.0); MONO % 3.4 % (0.0-8.0); NEUT % 92.3 % (16.0-70.0); PLATELET COUNT 286 TH/MM3 (150-450); RED BLOOD COUNT 4.98 MIL/MM3 (4.00-5.30); RED CELL DISTRIBUTION WIDTH 17.2 % (11.6-17.2)
[2016-02-23 11:55] LABS: HEMO FLAGS AUTO DIFF
[2016-02-23] MEDS ORDERED: LACTATED RINGER'S 1000 ML INJ 1,000 ML IV ONE (12:30)
[2016-02-23] MEDS: LINEZOLID 600 MG PREMIX 300 ML IV SCH (12:36)
[2016-02-23] MEDS: ACETAMINOPHEN 325 MG TAB PO PRN (12:36)
[2016-02-23 12:40] LABS: BANDS 2 % (0-6); EOSINOPHILS 3 % (0-4); NEUTROPHIL # MANUAL DIFF 35.7 TH/MM3 (1.8-7.7); POLYS (SEG NEUTROPHILS) 92 % (16-70); WBC DIFF SAMPLE 100
[2016-02-23 12:41] LABS: PLATELET ESTIMATE SMEAR NORMAL (NORMAL); SCAN/DIFF FINAL DIFF MANUAL
--- NOTE | 2016-02-23 13:33 | HHI.PR ---
Subjective Remarks called to the bedside for lactate from 0.8 to 4 in a patient in septic shock, although without rising pressor requirements. i evaluted the patient. she awakens and follows commands. she is morbidly obese. she is significantly tender in her abdomen. her uop is poor and inadequate despite 4L ivf resuscitation. her urine appears cloudy with significant sediment. norepinephrine dose is 12mcg/min. versed and fentanyl infusions for sedation. map > 65mmhg. I have asked for CVP to be placed and trended. I will place arterial line I have ordered 1L LR bolus I have ordered a repeat lactate at 1400 I have ordered an urgent CT chest/abd/pelvis without contrast to evaluate for possible pneumonia given her hypoxia complaint, and for possible intra- abdominal ischemia or abscess given her tender abdomen with rising lactate despite what appears to be adequate volume resuscitation and adequate mean arterial pressure. ABG now to evaluate her acidosis. Active Problems: Worsening septic shock Lactic Acidosis Abdominal Pain Urinary tract infection Critical care time: 41 minutes in addition to any previously documented time, exclusive of procedures. Jose Miguel Gross MD Feb 23, 2016 13:33
--- NOTE | 2016-02-23 14:06 | PD.PROCEDR ---
Procedure Note Procedure Procedure: Arterial Line Placement Left radial arterial line Diagnosis: Septic shock Indications: Need for beat to beat hemodynamic monitoring Consent: Consent is deemed emergent or medically necessary Description of the Procedure: The left wrist was prepped and draped sterilely. 1% lidocaine was used for local anesthesia. The pulse was located and a needle was advanced into the artery. A 20 gauge, 12 cm catheter was advanced into the artery using a modified Seldinger technique. The catheter was sutured to the skin and a sterile dressing was applied. The catheter was connected to a pressure transducer and an arterial waveform was noted. There were no immediate complications noted. There was minimal EBL. I personally performed the procedure. Jose Miguel Gross MD Feb 23, 2016 14:05
[2016-02-23 14:21] LABS: BLOOD GAS BASE EXCESS 1.7 mmol/L (-2-2); BLOOD GAS CARBOXYHEMOGLOBIN 1.5 % (0-4); BLOOD GAS HCO3 25 mmol/L (22-26); BLOOD GAS METHEMOGLOBIN 1.1 % (0-2); BLOOD GAS O2 HGB SATURATION 96 % (90-100); BLOOD GAS PCO2 31 mmHg (38-42); BLOOD GAS PO2 97 mmHg (61-120); BLOOD GAS TOTAL HGB 11.8 G/DL (12.0-16.0); CRITICAL VALUE YES; OXYGEN DEVICE VENTILATOR; TEMP CORR TO 98.6
[2016-02-23 14:22] LABS: DRAW SITE ART LINE; FIO2 40 %; STAT NO
[2016-02-23] MEDS: IMIPENEM/CILASTATIN INJ 500 MG in SODIUM CHLORIDE 0.9% INJ 100 ML IV SCH ×2 (14:51→19:50)
--- NOTE | 2016-02-23 15:07 | MB ---
cc: LYNNE CONKLIN MD, FRANKLYN F. MD DATE OF CONSULTATION: 02/23/[address] Conklin REASON FOR CONSULTATION Sepsis. HISTORY OF PRESENT ILLNESS This is a 56-year-old white female who was brought to the emergency department from a snf facility. The patient reportedly was in respiratory distress and had decreased alertness at the snf facility. She also was reported to have a nonproductive cough. The patient is currently intubated and on the ventilator. She has a current blood pressure of 95/62 despite 12 mcg of Levophed. She opens her eyes to voice but I am unable to get any information from her since she is intubated and cannot meaningfully respond. Information is obtained from the medical record. The patient's white blood cell count was elevated at 32.7 and her heart rate is elevated at 120; the heart rate was 103 when she presented to the emergency department. She has a lactic acid level of 4. Blood cultures have been taken and the result is pending. Urine culture is also pending. Urinalysis showed many urine bacteria and a large amount of leukocyte esterase. The patient was recently in the hospital in January. She was treated with antibiotics for MRSA pneumonia. She was also treated for a UTI with ESBL. She received Macrobid for seven days. After that she was put on Levaquin for presumed stomach infection. She was due to continue antibiotics until 01/30 with the Levaquin. Chest x-ray was obtained and it shows left lower lobe pneumonia. There is also a new patchy area of infiltrate in the lower right lung reported. She has scant sputum production which is aguilar colored. Maximum temperature was 99.9 degrees early today. The patient's estimated GFR is 37. PAST MEDICAL HISTORY 1. COPD. 2. Anxiety. 3. Depression. 4. Gastroesophageal reflux disease. 5. Diverticulitis. 6. Kidney stones. 7. Herniated disc. 8. Sleep apnea. 9. Gastric bypass. 10. Colostomy. 11. Chronic back pain. 12. MRSA pneumonia. ALLERGIES PENICILLIN. MEDICATIONS 1. Levophed. 2. Protonix. 3. Versed. 4. Vancomycin dose was given on 02/21. 5. Aztreonam dose was given on 02/21. SOCIAL HISTORY No tobacco, alcohol or illicit drugs. FAMILY HISTORY Unable to obtain. REVIEW OF SYSTEMS Unable to obtain. PHYSICAL EXAMINATION GENERAL: This is a morbidly obese female who is on the ventilator and is sedated. She opens her eyes but is unable to significantly respond. VITAL SIGNS: Temperature 98.1, BP 95/62, heart rate 120, respirations per ventilator. The patient is on 40% FIO2. HEENT: Head atraumatic. Extraocular movements grossly intact. No icterus. No conjunctival erythema. Oropharynx intubated. Buccal mucosa is moist. NECK: Supple without adenopathy or swelling. LUNGS: Coarse rhonchi bilateral. HEART: Regular S1, S2. Tachycardic. No audible murmurs. ABDOMEN: Obese. A surgical midline scar appears intact. Nontender. Decreased bowel sounds. Left-sided colostomy appears functioning. GENITOURINARY: No visible abnormality. RECTAL: Not performed. EXTREMITIES: No clubbing or cyanosis or edema. The left hand is slightly cool to touch. NEUROLOGIC: Unable to fully assess. SKIN: No rash. LABORATORY DATA WBC 32.7, 88% neutrophils, hemoglobin 13.7, platelets 292, creatinine 1.47, BUN 30, estimated GFR 144, sodium 144. LFTs normal. Nasal screen positive for MRSA. IMPRESSION 1. Sepsis with shock. 2. Urinary tract infection. 3. Pneumonia. 4. Acute respiratory failure. 5. Acute renal failure. RECOMMENDATIONS 1. Begin linezolid. 2. Begin imipenem. 3. Monitor blood culture. 4. Monitor urine culture. 5. Obtain sputum culture. 6. Monitor white blood cell count. 7. Follow clinical status. The patient's possible source of sepsis includes pneumonia or urinary tract infection. Thank you this consultation. The patient's progress will be monitored. Manny Mcwilliams MD FD/ALPA /11:03 AM /2:23 PM
--- NOTE | 2016-02-23 15:10 | EKG ---
Date Performed: 02/22/2016 Time Performed: 20:47:16 PTAGE: 56 years EKG: SINUS TACHYCARDIA POSSIBLE INFERIOR MYOCARDIAL INFARCTION ABNORMAL RHYTHM ECG PREVIOUS TRACING : 01/15/2016 07.43 Compared to the previous tracing, rate has increased with n o PACs as before DOCTOR: Wild Rhodes Interpretating Date/Time 02/23/2016 15:09:42
--- NOTE | 2016-02-23 17:05 | RADRPT ---
EXAM DATE/TIME: 02/23/2016 16:35 [facility] COMPARISON: CHEST SINGLE AP, February 23, 2016, 2:41. INDICATIONS : Pneumonia, hypoxia. RADIATION DOSE: 23.09 CTDIvol (mGy) ; Combined studies - Thorax/Abdomen/Pelvis MEDICAL HISTORY : Cardiovascular disease. Chronic obstructive pulmonary disease. Diverticulitis. SURGICAL HISTORY : Gastric bypass. Colostomy. ENCOUNTER: Initial ACUITY: 1 day PAIN SCALE: Non-responsive LOCATION: chest TECHNIQUE: Volumetric scanning of the chest was performed. Using automated exposure control and adjustment of t he mA and/or kV according to patient size, radiation dose was kept as low as reasonably achievable to obtain optimal diagnostic quality images. FINDINGS: There is an ET tube in place terminating above the yaritza and nasogastric tube to the midline of the stomach. The heart, aorta, and pulmonary vascularity are normal with no evidence of mass or adenopath y. Bony structures are intact. Right jugular catheter is in place. Bilateral lower lobes reveal consolidated opacity infil trates more prominent on the left and minimal on the right. CONCLUSION: Bilateral lower lobe consolidated infiltrates or prominent left than the right. ET tube above the car haleigh and nasogastric tube passing into the stomach Duncan Friedman MD on February 23, 2016 at 17:00 Board Certified Radiologist. This report was verified electronically.
--- NOTE | 2016-02-23 17:09 | RADRPT ---
EXAM DATE/TIME: 02/23/2016 16:35 [facility] COMPARISON: No previous studies available for comparison. INDICATIONS : Septic shock. ORAL CONTRAST: No oral contrast ingested. RADIATION DOSE: 23.09 CTDIvol (mGy) ; Combined studies - Thorax/Abdomen/Pelvis MEDICAL HISTORY : Cardiovascular disease. Chronic obstructive pulmonary disease. Diabetes mellitus type 2. SURGICAL HISTORY : Gastric bypass. Colostomy. ENCOUNTER: Initial ACUITY: 1 day PAIN SCALE: Non-responsive LOCATION: upper quadrant TECHNIQUE: Volumetric scanning of the abdomen and pelvis was performed. Using automated exposure control and ad justment of the mA and/or kV according to patient size, radiation dose was kept as low as reasonably achievable to obtain optimal diagnostic quality images. FINDINGS: Bibasilar left greater than right pulmonary consolidation lower lobes are appreciated. There is surgi orin absence of the gallbladder with clips in place. There is a colostomy in the left lower quadrant o f the distal descending colon. Single punctate nonobstructing calyceal stone is noted in each kidney with normal pancreas and adrenal glands. Mesentery is clear and there is a Ocampo catheter placed and decompressed urinary bladder. CONCLUSION: No acute intra-abdominal process. Colostomy distal left descending colon. Prior cholecys tectomy with clips in place . Solitary punctate bilateral renal nonobstructing calyceal stone Duncan Friedman MD on February 23, 2016 at 17:04 Board Certified Radiologist. This report was verified electronically.
[2016-02-23] MEDS ORDERED: ALTEPLASE RECOMBINANT 2 MG VIAL INTRACATH SCH (23:00)
[2016-02-23] MEDS ORDERED: ALTEPLASE RECOMBINANT 2 MG VIAL INTRACATH ONE (23:00)
[2016-02-24] VITALS (20 sets, daily range): BP systolic 99–124; BP diastolic 51–65; PULSE 105–124; RESP 20–28; TEMP 98.4–100.1; O2SAT 95–100
[2016-02-24] MEDS: NOREPINEPHRINE-DEXTROSE DRIP 250 ML IV SCH ×4 (00:27→20:05)
[2016-02-24] MEDS: DOCUSATE SODIUM 100 MG/10 ML UDC G-TUBE SCH ×3 (00:27→23:32)
[2016-02-24] MEDS: LINEZOLID 600 MG PREMIX 300 ML IV SCH ×3 (00:28→23:32)
[2016-02-24] MEDS: HEPARIN SODIUM - SQ 10,000 UNITS/ML VIAL SQ SCH ×3 (00:28→23:32)
[2016-02-24] MEDS: RESP: ALBUTEROL 2.5 MG/IPRATROPIUM 0.5 MG NEB (SCH) INH ×4 (02:35→21:01)
[2016-02-24] MEDS: CHLORHEXIDINE GLUCONATE 2 % 1 PACK (2 CLOTHS) TOP SCH (04:00)
[2016-02-24] MEDS: IMIPENEM/CILASTATIN INJ 500 MG in SODIUM CHLORIDE 0.9% INJ 100 ML IV SCH ×3 (05:00→20:05)
[2016-02-24] MEDS: INSULIN NovoLIN REGULAR SUPPLEMENTAL SCALE SQ SCH ×4 (05:42→20:05)
[2016-02-24] MEDS: SODIUM CHLORIDE 0.9% FLUSH 5 ML FLUSH IV FLUSH SCH ×2 (09:07→20:06)
[2016-02-24] MEDS: PANTOPRAZOLE SODIUM 40 MG VIAL IV SCH (09:07)
[2016-02-24] MEDS: CHLORHEXIDINE 0.12% (ORAL KIT) 15 ML CUP MT SCH ×2 (09:08→20:07)
[2016-02-24 09:21] LABS: HEMATOCRIT 42.3 % (35.0-46.0); MEAN CELL VOLUME 83.6 FL (80.0-100.0); MEAN CORPUSCULAR HEMOGLOBIN 26.2 PG (27.0-34.0); MEAN CORPUSCULAR HGB CONC 31.3 % (32.0-36.0); PLATELET COUNT 198 TH/MM3 (150-450); RED BLOOD COUNT 5.07 MIL/MM3 (4.00-5.30); RED CELL DISTRIBUTION WIDTH 17.3 % (11.6-17.2); REVIEW FLAG AUTO DIFF; WHITE BLOOD COUNT 37.6 TH/MM3 (4.0-11.0)
[2016-02-24 09:36] LABS: BICARBONATE 23.1 MEQ/L (21.0-32.0); MAGNESIUM 1.6 MG/DL (1.5-2.5)
--- NOTE | 2016-02-24 12:48 | HHI.IDPN ---
Note Infectious Disease Note Patient remains on the vent. Tolerated CPAP for 30 mins. Awakens to voice. On Levophed 8mcg. WBC remain elevated. Febrile. Abd. CT scan noted. D/W RN. This is a 56-year-old white female who was brought to the emergency department from a [place] [facility]. The patient reportedly was in respiratory distress and had decreased alertness at the [place] [facility]. The patient was recently in the hospital in January 2016. She was treated with antibiotics for MRSA pneumonia. She was also treated recently for a UTI with ESBL. She received Macrobid for seven days. After that she was put on Levaquin for presumed stomach infection. She was due to continue antibiotics until 01/30 with the Levaquin. Chest x-ray was obtained and it shows left lower lobe pneumonia. PAST MEDICAL HISTORY 1. COPD. 2. Anxiety. 3. Depression. 4. Gastroesophageal reflux disease. 5. Diverticulitis. 6. Kidney stones. 7. Herniated disc. 8. Sleep apnea. 9. Gastric bypass. 10. Colostomy. 11. Chronic back pain. 12. MRSA pneumonia. ALLERGIES PENICILLIN. Current Medications Medications (Trade) Dose Ordered Sig/Elliot Route PRN Reason Start Time Stop Time Status Last Admin Dose Admin Fentanyl Citrate 250 ml @ 0 mls/hr TITRATE IV 02/22/16 21:00 02/23/16 01:34 Norepinephrine Bitartrate (Levophed-Dextrose Drip) 250 ml @ 0 mls/hr TITRATE IV 02/22/16 23:00 02/24/16 11:29 Terbutaline Sulfate 1 mg 1 mg UNSCH PRN SQ For Extravasation 02/22/16 23:00 Sodium Chloride (NS 1000 ml Inj) 1,000 ml @ 84 mls/hr [id number] IV 02/22/16 22:45 02/23/16 22:35 IV Flush (NS Flush) 2 ml UNSCH PRN IV FLUSH FLUSH AFTER USING IV ACCESS 02/22/16 22:45 IV Flush (NS Flush) 2 ml BID IV FLUSH 02/23/16 09:00 02/24/16 09:07 Acetaminophen (Tylenol) 650 mg Q6H PRN PO PAIN 1-10 AND/OR FEVER >101F 02/22/16 22:45 02/23/16 12:36 Pantoprazole Sodium (Protonix Inj) 40 mg DAILY IV 1/7/17 09:00 02/24/16 09:07 Ondansetron HCl (Zofran Inj) 4 mg Q6H PRN IV NAUSEA OR VOMITING 02/22/16 22:45 Docusate Sodium (Colace Liq) 100 mg Q12H G-TUBE 02/22/16 22:45 02/24/16 00:27 Bisacodyl (Dulcolax Supp) 10 mg DAILY PRN RECTAL CONSTIPATION 02/22/16 22:45 Magnesium Hydroxide (Milk Of Magnesia Liq) 30 ml Q12H PRN PO CONSTIPATION 02/22/16 22:45 Sennosides (Senokot) 17.2 mg Q12H PRN PO CONSTIPATION 02/22/16 22:45 Heparin Sodium (Porcine) (Heparin Inj) 5,000 units Q12H SQ 02/22/16 22:45 02/24/16 11:28 Miscellaneous Information 1 [id number] XX 02/22/16 22:45 Chlorhexidine Gluconate (Chlorhexidine 2% Cloth) 3 pack Taper DAILY@04 TOP 02/23/16 04:00 02/18/17 03:59 02/24/16 04:00 Chlorhexidine Gluconate 3 pack 3 pack UNSCH PRN TOP HYGIENIC CARE 02/22/16 22:45 Propofol 100 ml @ 0 mls/hr TITRATE IV 02/22/16 22:45 Potassium Chloride 100 ml @ 50 mls/hr Q2H PRN IV For Potassium 2.8 - 3.2 mEq/L 02/22/16 22:45 Potassium Chloride (KCl 20 Meq Premix Inj) 100 ml @ 50 mls/hr Q2H PRN IV For Potassium 2.8 - 3.2 mEq/L 02/22/16 22:45 Potassium Chloride 40 meq 40 meq UNSCH PRN PO/TUBE For Potassium 3.3 - 3.5 mEq/L 02/22/16 22:45 Potassium Chloride 100 ml @ 25 mls/hr UNSCH PRN IV For Potassium 3.3 - 3.5 mEq/L 02/22/16 22:45 Potassium Chloride 100 ml @ 50 mls/hr Q2H PRN IV For Potassium 3.3 - 3.5 mEq/L 02/22/16 22:45 Magnesium Sulfate/ Sodium Chloride (Magnesium Sulfate Inj/NS Inj) 100 ml @ 50 mls/hr UNSCH PRN IV For Magnesium 0.9 - 1.1 mg/dL 02/22/16 22:45 Magnesium Oxide 800 mg 800 mg UNSCH PRN PO For Magnesium 1.2 - 1.6 mg/dL 02/22/16 22:45 Magnesium Sulfate/ Sodium Chloride (Magnesium Sulfate Inj/NS Inj) 100 ml @ 50 mls/hr UNSCH PRN IV For Magnesium 1.2 - 1.6 mg/dL 02/22/16 22:45 Potassium Phosphate 2000 mg 2,000 mg Q4H PRN PO For Phosphorus < 2.5 mg/dL 02/22/16 22:45 Sodium Phosphate/ Sodium Chloride (Sodium Phosphate Inj/NS 250 ml Inj) 250 ml @ 42 mls/hr UNSCH PRN IV For Phosphorus < 2.5 mg/dL 02/22/16 22:45 Potassium Chloride (KCl 40 Meq/30 ml Liq) 40 meq UNSCH PRN PO/TUBE SEE LABEL COMMENTS 02/22/16 22:45 Potassium Phosphate 2000 mg 2,000 mg UNSCH PRN PO/TUBE SEE LABEL COMMENTS 02/22/16 22:45 Potassium Phosphate/Sodium Chloride (Potassium Phosphate Inj/NS 250 ml Inj) 260 ml @ 42 mls/hr UNSCH PRN IV SEE LABEL COMMENTS 02/22/16 22:45 Chlorhexidine Gluconate (Peridex 0.12% Liq) 15 ml BID@08,20 MT 02/23/16 08:00 02/24/16 09:08 Dextrose (D50w (Vial) Inj) 25 ml UNSCH PRN IV PUSH HYPOGLYCEMIA-SEE COMMENTS 02/22/16 22:45 Glucagon 1 mg 1 mg UNSCH PRN OTHER HYPOGLYCEMIA-SEE COMMENTS 02/22/16 22:45 Linezolid 300 ml @ 300 mls/hr Q12H IV 02/23/16 12:00 02/24/16 11:29 Imipenem/ Cilastatin Sodium/ Sodium Chloride (Primaxin Inj/NS Inj) 100 ml @ 200 mls/hr Q8H IV 02/23/16 13:00 02/24/16 05:00 SOCIAL HISTORY No tobacco, alcohol or illicit drugs. FAMILY HISTORY Unable to obtain. REVIEW OF SYSTEMS Unable to obtain. OBJECTIVE: Vital Signs Date Time Temp Pulse Resp B/P Pulse Ox O2 Delivery O2 Flow Rate FiO2 02/24/16 11:18 96 40 02/24/16 10:00 124 02/24/16 08:00 122 02/24/16 07:33 40 02/24/16 07:26 100 40 02/24/16 06:00 122 02/24/16 04:10 99 40 02/24/16 04:00 117 02/24/16 04:00 40 02/24/16 04:00 100.1 115 21 103/53 99 02/24/16 02:00 115 02/24/16 01:25 98 40 02/24/16 00:00 121 02/24/16 00:00 99.9 121 20 99/51 98 02/24/16 00:00 40 02/23/16 22:00 99 40 02/23/16 22:00 121 02/23/16 20:00 123 02/23/16 20:00 99.4 123 16 120/62 98 02/23/16 20:00 40 02/23/16 19:15 98 40 02/23/16 18:00 123 02/23/16 17:02 99 100 02/23/16 16:00 40 02/23/16 16:00 98.7 124 22 92/46 96 02/23/16 16:00 123 02/23/16 15:21 99 40 02/23/16 14:00 123 02/23/16 02/23/16 02/24/16 15:00 23:00 07:00 Intake Total 1609 ml 1336 ml 1121 ml Output Total 250 ml 550 ml 550 ml Balance 1359 ml 786 ml 571 ml Intake IV Total 1609 ml 1336 ml 921 ml Other 200 ml Output Urine Total 250 ml 450 ml 450 ml Stool Total 100 ml 100 ml Laboratory Tests Test 02/22/16 02/23/16 02/24/16 20:35 11:15 08:50 White Blood Count 32.7 TH/MM3 38.0 TH/MM3 37.6 TH/MM3 Red Blood Count 5.19 MIL/MM3 4.98 MIL/MM3 5.07 MIL/MM3 Hemoglobin 13.7 GM/DL 12.9 GM/DL 13.3 GM/DL Hematocrit 44.7 % 41.7 % 42.3 % Mean Corpuscular Volume 86.1 FL 83.8 FL 83.6 FL Mean Corpuscular Hemoglobin 26.3 PG 25.8 PG 26.2 PG Mean Corpuscular Hemoglobin 30.6 % 30.8 % 31.3 % Concent Red Cell Distribution Width 17.6 % 17.2 % 17.3 % Platelet Count 292 TH/MM3 286 TH/MM3 198 TH/MM3 Mean Platelet Volume 10.7 FL 10.3 FL 10.4 FL Neutrophils (%) (Auto) 88.9 % 92.3 % Lymphocytes (%) (Auto) 6.4 % 3.7 % Monocytes (%) (Auto) 4.1 % 3.4 % Eosinophils (%) (Auto) 0.2 % 0.1 % Basophils (%) (Auto) 0.4 % 0.5 % Neutrophils # (Auto) 29.1 TH/MM3 35.1 TH/MM3 Lymphocytes # (Auto) 2.1 TH/MM3 1.4 TH/MM3 Monocytes # (Auto) 1.3 TH/MM3 1.3 TH/MM3 Eosinophils # (Auto) 0.1 TH/MM3 0.0 TH/MM3 Basophils # (Auto) 0.1 TH/MM3 0.2 TH/MM3 CBC Comment AUTO DIFF AUTO DIFF Differential Total Cells 100 100 Counted Neutrophils % (Manual) 93 % 92 % Band Neutrophils % 1 % 2 % Lymphocytes % 3 % 2 % Monocytes % 3 % 1 % Neutrophils # (Manual) 30.7 TH/MM3 35.7 TH/MM3 Differential Comment FINAL DIFF FINAL DIFF MANUAL MANUAL Platelet Estimate NORMAL NORMAL Platelet Morphology Comment NORMAL Ovalocytes 1+ Eosinophils % 3 % Hematology Comments Laboratory Tests Test 02/22/16 02/22/16 02/23/16 02/23/16 20:35 23:02 10:03 15:23 Sodium Level 141 MEQ/L 144 MEQ/L Potassium Level 5.7 MEQ/L 3.8 MEQ/L Chloride Level 101 MEQ/L 107 MEQ/L Carbon Dioxide Level 33.7 MEQ/L 26.4 MEQ/L Anion Gap 6 MEQ/L 11 MEQ/L Blood Urea Nitrogen 30 MG/DL 30 MG/DL Creatinine 1.67 MG/DL 1.47 MG/DL Estimat Glomerular Filtration 32 ML/MIN 37 ML/MIN Rate Random Glucose 120 MG/DL 166 MG/DL Calcium Level 8.4 MG/DL 8.0 MG/DL Magnesium Level 2.2 MG/DL 1.8 MG/DL Total Bilirubin 0.3 MG/DL Aspartate Amino Transf 32 U/L (AST/SGOT) Alanine Aminotransferase 23 U/L (ALT/SGPT) Alkaline Phosphatase 118 U/L Total Creatine Kinase 112 U/L Creatine Kinase MB LESS THAN 0.5 NG/ML Troponin I LESS THAN 0.02 NG/ML B-Type Natriuretic Peptide 20 PG/ML Total Protein 5.4 GM/DL Albumin 1.7 GM/DL Phosphorus Level 4.2 MG/DL 1.1 MG/DL Lactic Acid Level 0.8 mmol/L 4.1 mmol/L 1.3 mmol/L Test 02/24/16 02/24/16 07:55 08:50 Lactic Acid Level 2.0 mmol/L Sodium Level 140 MEQ/L Potassium Level 4.0 MEQ/L Chloride Level 107 MEQ/L Carbon Dioxide Level 23.1 MEQ/L Anion Gap 10 MEQ/L Blood Urea Nitrogen 22 MG/DL Creatinine 0.90 MG/DL Estimat Glomerular Filtration 65 ML/MIN Rate Random Glucose 145 MG/DL Calcium Level 7.9 MG/DL Magnesium Level 1.6 MG/DL Microbiology Date/Time Procedure Status Source Growth 02/22/16 20:25 Aerobic Blood Culture - Preliminary Resulted Blood Peripheral NO GROWTH IN 2 DAYS 02/22/16 20:25 Anaerobic Blood Culture - Preliminary Resulted Blood Peripheral NO GROWTH IN 2 DAYS 02/22/16 20:35 Aerobic Blood Culture - Preliminary Resulted Blood Peripheral NO GROWTH IN 2 DAYS 02/22/16 20:35 Anaerobic Blood Culture - Preliminary Resulted Blood Peripheral NO GROWTH IN 2 DAYS 02/22/16 20:35 Urine Culture - Preliminary Resulted Urine Catheterized Urine RESULTS PENDING Nasal screen positive for MRSA. PHYSICAL EXAMINATION GENERAL: On the ventilator and is sedated. She opens her eyes but is unable to significantly respond. HEENT: Head atraumatic. Extraocular movements grossly intact. No icterus. No conjunctival erythema. Oropharynx intubated. Buccal mucosa is moist. NECK: Supple without adenopathy or swelling. LUNGS: Decreased BS bilateral. HEART: Regular S1, S2. Tachycardic. No audible murmurs. ABDOMEN: Obese. A surgical midline scar appears intact. Nontender. Decreased bowel sounds. Left-sided colostomy appears functioning. GENITOURINARY: No visible abnormality. EXTREMITIES: No clubbing or cyanosis or edema. NEUROLOGIC: Unable to fully assess. SKIN: No rash. warm and most. IMPRESSION 1. Sepsis with shock. 2. Urinary tract infection. 3. Pneumonia. 4. Acute respiratory failure. 5. Acute renal failure. RECOMMENDATIONS 1. Cont. linezolid. 2. Cont. imipenem. 3. Follow blood culture. 4. Follow urine culture. 5. Obtain sputum culture. 6. Monitor white blood cell count. 7. Follow clinical status. Manny Mcwilliams MD Feb 24, 2016 12:48
[2016-02-24] MEDS: SODIUM CHLOR 0.9% 1000 ML INJ 1,000 ML IV SCH ×2 (13:32→22:25)
--- NOTE | 2016-02-24 21:18 | HHI.CCPN ---
Subjective Remarks/Hospital Course Hospital Course: Patient is a 56 year old female who presented to ED from a [place] [facility] respiratory distress. Patient was noted to have decreased alertness at the [place] [facility]. As per nursing, patient had a nonproductive cough with diminished lung sounds to her lungs. Patient was on continuous oxygen at 2 L, reports that her pulse ox was 84%. Patient was hypoxic when [facility] arrived on scene, patient was placed on BiPAP and transported to the ED. Upon arrival to the ED the patient had acute hypoxic respiratory failure and was intubated. The patient was noted to be hypotensive, central line was placed vasopressor support was initiated. The patient was recently discharged and was currently on antibiotics for ESBL, and a UTI . Labs were obtained and WBC count was noted to be elevated. Critical care medicine was consulted for management and treatment. Subjective: 02/23: pressor requirement starting to stabilize. lactate cleared. uop adequate. awake and following commands. shock persists. renal function improving. urine with GNRs. Objective Vital Signs Date Time Temp Pulse Resp B/P Pulse Ox O2 Delivery O2 Flow Rate FiO2 02/24/16 20:00 40 02/24/16 19:23 95 02/24/16 18:00 118 02/24/16 16:00 98.7 24 124/58 02/23/16 02:57 Ventilator Intake and Output 02/23/16 02/23/16 02/24/16 08:00 16:00 00:00 Intake Total 380 ml 1609 ml 1336 ml Output Total 400 ml 250 ml 550 ml Balance -20 ml 1359 ml 786 ml Result Diagram: 02/24/16 0850 02/24/16 0850 Imaging Last 24 hours Impressions Chest X-Ray 02/22/16 1900 Signed Impressions: Service Date/Time: Monday, February 22, 2016 19:45 - CONCLUSION: 1. Basilar airspace disease, stable to slightly improved from January 24, 2016. Cardiomegaly. Braden Gomez MD Objective Remarks GENERAL: A super morbidly obese female lying in bed intubated and sedated SKIN: Warm and dry. HEAD: Atraumatic. Normocephalic. EYES: Pupils equal and round. No scleral icterus. No injection or drainage. ENT: No nasal bleeding or discharge. Mucous membranes pink and moist. NECK: Trachea midline. No JVD. CARDIOVASCULAR: Normal rate, regular rhythm. RESPIRATORY: Mechanical ventilation Clear to auscultation. Breath sounds equal bilaterally. GASTROINTESTINAL: Abdomen obese soft, non-tender, nondistended. Well-healed midline scar No guarding. Colostomy left upper quadrant MUSCULOSKELETAL: Extremities without clubbing, cyanosis, or edema. No obvious deformities. NEUROLOGICAL: RASS -1. follows commands. A/P Assessment and Plan This is a 56-year-old female with altered mental status with acute hypoxic respiratory failure is likely secondary to septic shock. The patient has had a previous admission approximately 12 weeks ago. Presents with hypotension requiring vasopressor support and elevated WBC count. Patient is critically ill and septic shock, and prognosis is guarded. Neurologic: Altered mental status Toxic /metabolic encephalopathy -RASS goal -2. -transition to propofol and fentanyl for goal RASS -d/c versed drip. -Sedation holiday per ICU protocol Respiratory: Obstructive sleep apnea Acute hypoxic respiratory failure -Maintain O2 sat greater than 92%, wean FiO2 -Maintain tidal volume 6-8 cc/per ideal body weight -start CPAP trials daily. failed today for significant tachypnea (also still in shock) Cardiovascular: Hypotension secondary to septic shock History of hypertension -Continue norepinephrine infusion, maintain map greater than 65 mmHg Renal: NADIR Renal insufficiency -Maintain Ocampo -- Strict I/Os FEN/GI: -Insert OGT, plan for tube feeds today -Dietary consult -She was bolused with 4 L in ED -IVF LR 100 cc/hour. we will attempt to wean this ivf requirement as her shock resolves. currently we have ongoing pressor requirement, so we will keep this today. -Bowel regimen Heme/ID: Multilobar pneumonia (01/30 discharge hospital) UTI -Monitor lactate level -ID consult-appreciate recommendations -Follow-up blood, sputum and urine cultures -Patient was still on Macrobid status post discharge from hospital weeks ago, for UTI -continue Linezolid, imipenem. Endocrine: Monitor blood glucose levels per ICU protocol -- SSI Prophylaxis: GI Prophylaxis Protonix DVT Prophylaxis -- SCDs Heparin Lines: Right IJ central line Dr. Bundy 02/22/16, peripheral IVs 2 left radial art line 02/22 Dispo: remain in the ICU. This patient remains critically ill with one or more organ systems which are or may become a threat to life. I have spent in excess of 31 minutes discontinuously in the care and management of this patient. This time is exclusive of procedures, and includes, but is not limited to, evaluation of the patient, review of the medical record, discussions with family, consultants, nursing staff, or respiratory therapy, and documentation in the medical record. Jose Miguel Gross MD Feb 24, 2016 21:18
[2016-02-25] VITALS (18 sets, daily range): BP systolic 92–109; BP diastolic 50–60; PULSE 84–115; RESP 16–32; TEMP 97.8–99.5; O2SAT 95–99
[2016-02-25] MEDS: CHLORHEXIDINE GLUCONATE 2 % 1 PACK (2 CLOTHS) TOP SCH (04:00)
[2016-02-25] MEDS: IMIPENEM/CILASTATIN INJ 500 MG in SODIUM CHLORIDE 0.9% INJ 100 ML IV SCH ×3 (04:05→22:20)
[2016-02-25] MEDS: RESP: ALBUTEROL 2.5 MG/IPRATROPIUM 0.5 MG NEB (SCH) INH ×3 (04:09→19:44)
[2016-02-25] MEDS: fentaNYL DRIP 250 ML IV SCH (05:28)
[2016-02-25] MEDS: INSULIN NovoLIN REGULAR SUPPLEMENTAL SCALE SQ SCH ×4 (05:28→21:00)
[2016-02-25] MEDS: NOREPINEPHRINE-DEXTROSE DRIP 250 ML IV SCH (05:28)
[2016-02-25 06:02] LABS: HEMATOCRIT 37.5 % (35.0-46.0); MEAN CELL VOLUME 83.9 FL (80.0-100.0); MEAN CORPUSCULAR HEMOGLOBIN 25.9 PG (27.0-34.0); MEAN CORPUSCULAR HGB CONC 30.9 % (32.0-36.0); PLATELET COUNT 250 TH/MM3 (150-450); RED BLOOD COUNT 4.46 MIL/MM3 (4.00-5.30); RED CELL DISTRIBUTION WIDTH 17.2 % (11.6-17.2); REVIEW FLAG FINAL; WHITE BLOOD COUNT 28.3 TH/MM3 (4.0-11.0)
[2016-02-25 06:27] LABS: BICARBONATE 28.7 MEQ/L (21.0-32.0); POTASSIUM 3.3 MEQ/L (3.5-5.1)
[2016-02-25] MEDS: CHLORHEXIDINE 0.12% (ORAL KIT) 15 ML CUP MT SCH ×2 (08:28→22:20)
[2016-02-25] MEDS: PANTOPRAZOLE SODIUM 40 MG VIAL IV SCH (08:28)
[2016-02-25] MEDS: SODIUM CHLOR 0.9% 1000 ML INJ 1,000 ML IV SCH ×2 (08:29→22:15)
[2016-02-25] MEDS: SODIUM CHLORIDE 0.9% FLUSH 5 ML FLUSH IV FLUSH SCH ×2 (08:29→21:00)
[2016-02-25] MEDS ORDERED: MIDAZOLAM HCL 5 MG/ML VIAL (1 ML) ONE (10:58)
[2016-02-25] MEDS: DOCUSATE SODIUM 100 MG/10 ML UDC G-TUBE SCH ×2 (11:03→22:22)
[2016-02-25] MEDS: LINEZOLID 600 MG PREMIX 300 ML IV SCH (11:03)
[2016-02-25] MEDS: HEPARIN SODIUM - SQ 10,000 UNITS/ML VIAL SQ SCH ×2 (11:04→22:22)
--- NOTE | 2016-02-25 11:06 | HHI.CCPN ---
Subjective Remarks/Hospital Course Hospital Course: Patient is a 56 year old female who presented to ED from a [facility] respiratory distress. Patient was noted to have decreased alertness at the [facility]. As per nursing, patient had a nonproductive cough with diminished lung sounds to her lungs. Patient was on continuous oxygen at 2 L, reports that her pulse ox was 84%. Patient was hypoxic when [facility] arrived on scene, patient was placed on BiPAP and transported to the ED. Upon arrival to the ED the patient had acute hypoxic respiratory failure and was intubated. The patient was noted to be hypotensive, central line was placed vasopressor support was initiated. The patient was recently discharged and was currently on antibiotics for ESBL, and a UTI . Labs were obtained and WBC count was noted to be elevated. Critical care medicine was consulted for management and treatment. Subjective: 02/23: pressor requirement starting to stabilize. lactate cleared. uop adequate. awake and following commands. shock persists. renal function improving. urine with GNRs. 02/24: Tmax 99.5. The patient continues on vasopressor support. CPAP trials were attempted yesterday and the patient failed after 30 minutes. Objective Vital Signs Date Time Temp Pulse Resp B/P Pulse Ox O2 Delivery O2 Flow Rate FiO2 02/25/16 10:37 96 40 02/25/16 10:00 108 02/25/16 08:00 98.5 23 105/59 02/23/16 02:57 Ventilator Intake and Output 02/24/16 02/24/16 02/25/16 08:00 16:00 00:00 Intake Total 1121 ml 1167 ml 1420 ml Output Total 550 ml 375 ml 350 ml Balance 571 ml 792 ml 1070 ml Result Diagram: 02/25/16 0550 02/25/16 0550 Imaging Last 24 hours Impressions Chest X-Ray 02/22/16 1900 Signed Impressions: Service Date/Time: Monday, February 22, 2016 19:45 - CONCLUSION: 1. Basilar airspace disease, stable to slightly improved from January 24, 2016. Cardiomegaly. Braden Gomez MD Objective Remarks GENERAL: A super morbidly obese female lying in bed intubated, following commands this morning. SKIN: Warm and dry. HEAD: Atraumatic. Normocephalic. EYES: Pupils equal and round. No scleral icterus. No injection or drainage. ENT: No nasal bleeding or discharge. Mucous membranes pink and moist. NECK: Trachea midline. Unable to assess JVD. CARDIOVASCULAR: Normal rate, regular rhythm. RESPIRATORY: Mechanical ventilation Clear to auscultation. Breath sounds equal bilaterally. GASTROINTESTINAL: Abdomen obese soft, non-tender, nondistended. Well-healed midline scar No guarding. Colostomy left upper quadrant MUSCULOSKELETAL: Extremities without clubbing, cyanosis, or edema. No obvious deformities. NEUROLOGICAL: RASS -1. follows commands GCS 11 T Urinary Catheter: Yes Ocampo insert reason: ICU Pt Getting Diuretics Vascular Central Line Catheter: Yes Date of Insertion: Feb 23, 2016 Side: Right Location: Internal, Jugular A/P Assessment and Plan This is a 56-year-old female with altered mental status with acute hypoxic respiratory failure is likely secondary to septic shock. The patient has had a previous admission approximately 12 weeks ago. Presents with hypotension requiring vasopressor support and elevated WBC count. Patient is critically ill and septic shock, and prognosis is guarded. Neurologic: Altered mental status Toxic /metabolic encephalopathy Anxiety -RASS goal -2. -IV sedation fentanyl infusion -Sedation holiday per ICU protocol Respiratory: Obstructive sleep apnea Acute hypoxic respiratory failure -Maintain O2 sat greater than 92%, wean FiO2 -Maintain tidal volume 6-8 cc/per ideal body weight -start CPAP trials daily, lasted 2 hours today Cardiovascular: Hypotension secondary to septic shock History of hypertension -Continued requirement for norepinephrine infusion ,currently 2 4 mcgs -maintain MAP greater than 65 mmHg Renal: NADIR-resolved Renal insufficiency-resolved -Maintain Ocampo -Creatnine 0.7 -- Strict I/Os FEN/GI: -Continue Tube feeds, Glucerna 1.5 currently at 20 cc/hour -IVF NS 100 cc/hour -Bowel regimen Heme/ID: Multilobar pneumonia (01/30 discharge hospital) UTI -Follow-up blood, sputum and urine cultures -Patient was still on Macrobid status post discharge from hospital weeks ago, for UTI -ID on board-continue Linezolid, imipenem, follow their recommendations Endocrine: Monitor blood glucose levels per ICU protocol -- SSI Prophylaxis: GI Prophylaxis Protonix DVT Prophylaxis -- SCDs Heparin Lines: Right IJ central line Dr. Bundy 02/22/16, peripheral IVs 2 left radial art line 02/22-discontinued 02/23 Dispo: remain in the ICU. This patient remains critically ill with one or more organ systems which are or may become a threat to life. I have spent in excess of 37 minutes discontinuously in the care and management of this patient. This time is exclusive of procedures, and includes, but is not limited to, evaluation of the patient, review of the medical record, discussions with family, consultants, nursing staff, or respiratory therapy, and documentation in the medical record. Physician Suzanne Mcdonald MD Feb 25, 2016 11:06
--- NOTE | 2016-02-25 11:29 | HHI.IDPN ---
Note Infectious Disease Note Patient remains on the vent. Tolerated CPAP for 2 hours. Awakens to voice. On Levophed down to 2mcg. WBC remain elevated. Temp lower. Abd. CT scan noted. D/W RN. This is a 56-year-old white female who was brought to the emergency department from a residential facility. The patient reportedly was in respiratory distress and had decreased alertness at the residential facility. The patient was recently in the hospital in January 2016. She was treated with antibiotics for MRSA pneumonia. She was also treated recently for a UTI with ESBL. She received Macrobid for seven days. After that she was put on Levaquin for presumed stomach infection. She was due to continue antibiotics until 01/30 with the Levaquin. Chest x-ray was obtained and it shows left lower lobe pneumonia. PAST MEDICAL HISTORY 1. COPD. 2. Anxiety. 3. Depression. 4. Gastroesophageal reflux disease. 5. Diverticulitis. 6. Kidney stones. 7. Herniated disc. 8. Sleep apnea. 9. Gastric bypass. 10. Colostomy. 11. Chronic back pain. 12. MRSA pneumonia. ALLERGIES PENICILLIN. Current Medications Medications (Trade) Dose Ordered Sig/Elliot Route PRN Reason Start Time Stop Time Status Last Admin Dose Admin Fentanyl Citrate 250 ml @ 0 mls/hr TITRATE IV 02/22/16 21:00 02/25/16 05:28 Norepinephrine Bitartrate (Levophed-Dextrose Drip) 250 ml @ 0 mls/hr TITRATE IV 02/22/16 23:00 02/25/16 05:28 Terbutaline Sulfate 1 mg 1 mg UNSCH PRN SQ For Extravasation 02/22/16 23:00 Sodium Chloride (NS 1000 ml Inj) 1,000 ml @ 84 mls/hr [id number] IV 02/22/16 22:45 02/25/16 08:29 IV Flush (NS Flush) 2 ml UNSCH PRN IV FLUSH FLUSH AFTER USING IV ACCESS 02/22/16 22:45 IV Flush (NS Flush) 2 ml BID IV FLUSH 02/23/16 09:00 02/25/16 08:29 Acetaminophen (Tylenol) 650 mg Q6H PRN PO PAIN 1-10 AND/OR FEVER >101F 02/22/16 22:45 02/23/16 12:36 Pantoprazole Sodium (Protonix Inj) 40 mg DAILY IV 02/23/16 09:00 02/25/16 08:28 Ondansetron HCl (Zofran Inj) 4 mg Q6H PRN IV NAUSEA OR VOMITING 02/22/16 22:45 Docusate Sodium (Colace Liq) 100 mg Q12H G-TUBE 02/22/16 22:45 02/25/16 11:03 Bisacodyl (Dulcolax Supp) 10 mg DAILY PRN RECTAL CONSTIPATION 02/22/16 22:45 Magnesium Hydroxide (Milk Of Magnesia Liq) 30 ml Q12H PRN PO CONSTIPATION 02/22/16 22:45 Sennosides (Senokot) 17.2 mg Q12H PRN PO CONSTIPATION 02/22/16 22:45 Heparin Sodium (Porcine) (Heparin Inj) 5,000 units Q12H SQ 02/22/16 22:45 02/25/16 11:04 Miscellaneous Information 1 Q361D XX 02/22/16 22:45 Chlorhexidine Gluconate (Chlorhexidine 2% Cloth) 3 pack Taper DAILY@04 TOP 02/23/16 04:00 02/18/17 03:59 02/25/16 04:00 Chlorhexidine Gluconate 3 pack 3 pack UNSCH PRN TOP HYGIENIC CARE 02/22/16 22:45 Propofol 100 ml @ 0 mls/hr TITRATE IV 02/22/16 22:45 Potassium Chloride 100 ml @ 50 mls/hr Q2H PRN IV For Potassium 2.8 - 3.2 mEq/L 02/22/16 22:45 Potassium Chloride (KCl 20 Meq Premix Inj) 100 ml @ 50 mls/hr Q2H PRN IV For Potassium 2.8 - 3.2 mEq/L 02/22/16 22:45 Potassium Chloride 40 meq 40 meq UNSCH PRN PO/TUBE For Potassium 3.3 - 3.5 mEq/L 02/22/16 22:45 Potassium Chloride 100 ml @ 25 mls/hr UNSCH PRN IV For Potassium 3.3 - 3.5 mEq/L 02/22/16 22:45 Potassium Chloride 100 ml @ 50 mls/hr Q2H PRN IV For Potassium 3.3 - 3.5 mEq/L 02/22/16 22:45 Magnesium Sulfate/ Sodium Chloride (Magnesium Sulfate Inj/NS Inj) 100 ml @ 50 mls/hr UNSCH PRN IV For Magnesium 0.9 - 1.1 mg/dL 02/22/16 22:45 Magnesium Oxide 800 mg 800 mg UNSCH PRN PO For Magnesium 1.2 - 1.6 mg/dL 02/22/16 22:45 Magnesium Sulfate/ Sodium Chloride (Magnesium Sulfate Inj/NS Inj) 100 ml @ 50 mls/hr UNSCH PRN IV For Magnesium 1.2 - 1.6 mg/dL 02/22/16 22:45 Potassium Phosphate 2000 mg 2,000 mg Q4H PRN PO For Phosphorus < 2.5 mg/dL 02/22/16 22:45 Sodium Phosphate/ Sodium Chloride (Sodium Phosphate Inj/NS 250 ml Inj) 250 ml @ 42 mls/hr UNSCH PRN IV For Phosphorus < 2.5 mg/dL 02/22/16 22:45 Potassium Chloride (KCl 40 Meq/30 ml Liq) 40 meq UNSCH PRN PO/TUBE SEE LABEL COMMENTS 02/22/16 22:45 Potassium Phosphate 2000 mg 2,000 mg UNSCH PRN PO/TUBE SEE LABEL COMMENTS 02/22/16 22:45 Potassium Phosphate/Sodium Chloride (Potassium Phosphate Inj/NS 250 ml Inj) 260 ml @ 42 mls/hr UNSCH PRN IV SEE LABEL COMMENTS 02/22/16 22:45 Chlorhexidine Gluconate (Peridex 0.12% Liq) 15 ml BID@08,20 MT 02/23/16 08:00 02/25/16 08:28 Dextrose (D50w (Vial) Inj) 25 ml UNSCH PRN IV PUSH HYPOGLYCEMIA-SEE COMMENTS 02/22/16 22:45 Glucagon 1 mg 1 mg UNSCH PRN OTHER HYPOGLYCEMIA-SEE COMMENTS 02/22/16 22:45 Linezolid 300 ml @ 300 mls/hr Q12H IV 02/23/16 12:00 02/25/16 11:03 Imipenem/ Cilastatin Sodium/ Sodium Chloride (Primaxin Inj/NS Inj) 100 ml @ 200 mls/hr Q8H IV 02/23/16 13:00 02/25/16 04:05 SOCIAL HISTORY No tobacco, alcohol or illicit drugs. FAMILY HISTORY Unable to obtain. REVIEW OF SYSTEMS Unable to obtain. OBJECTIVE: Vital Signs Date Time Temp Pulse Resp B/P Pulse Ox O2 Delivery O2 Flow Rate FiO2 02/25/16 10:37 96 40 02/25/16 10:00 108 02/25/16 08:11 40 02/25/16 08:00 40 02/25/16 08:00 105 02/25/16 08:00 98.5 105 23 105/59 95 02/25/16 07:16 97 40 02/25/16 06:00 114 02/25/16 04:00 99.0 115 19 94/60 95 02/25/16 04:00 113 02/25/16 04:00 40 02/25/16 02:00 96 02/25/16 01:32 96 40 02/25/16 00:00 99.5 100 32 109/53 96 02/25/16 00:00 100 02/25/16 00:00 40 02/24/16 22:08 95 40 02/24/16 22:00 105 02/24/16 20:00 99.1 106 28 107/54 95 02/24/16 20:00 106 02/24/16 20:00 40 02/24/16 19:23 95 40 02/24/16 18:00 118 02/24/16 16:00 40 02/24/16 16:00 118 02/24/16 16:00 98.7 119 24 124/58 96 02/24/16 15:13 98 40 02/24/16 14:00 118 02/24/16 12:00 118 02/24/16 12:00 40 02/24/16 12:00 98.7 119 22 113/65 96 02/24/16 02/24/16 02/25/16 15:00 23:00 07:00 Intake Total 1167 ml 1420 ml 1698 ml Output Total 375 ml 350 ml 850 ml Balance 792 ml 1070 ml 848 ml Intake IV Total 1167 ml 1140 ml 1154 ml Tube Feeding 30 ml 344 ml Other 250 ml 200 ml Output Urine Total 375 ml 300 ml 400 ml Stool Total 50 ml 450 ml Laboratory Tests Test 02/24/16 02/25/16 08:50 05:50 White Blood Count 37.6 TH/MM3 28.3 TH/MM3 Red Blood Count 5.07 MIL/MM3 4.46 MIL/MM3 Hemoglobin 13.3 GM/DL 11.6 GM/DL Hematocrit 42.3 % 37.5 % Mean Corpuscular Volume 83.6 FL 83.9 FL Mean Corpuscular Hemoglobin 26.2 PG 25.9 PG Mean Corpuscular Hemoglobin 31.3 % 30.9 % Concent Red Cell Distribution Width 17.3 % 17.2 % Platelet Count 198 TH/MM3 250 TH/MM3 Mean Platelet Volume 10.4 FL 9.7 FL Hematology Comments Laboratory Tests Test 02/23/16 02/24/16 02/24/16 02/25/16 15:23 07:55 08:50 05:50 Lactic Acid Level 1.3 mmol/L 2.0 mmol/L Sodium Level 140 MEQ/L 143 MEQ/L Potassium Level 4.0 MEQ/L 3.3 MEQ/L Chloride Level 107 MEQ/L 107 MEQ/L Carbon Dioxide Level 23.1 MEQ/L 28.7 MEQ/L Anion Gap 10 MEQ/L 7 MEQ/L Blood Urea Nitrogen 22 MG/DL 17 MG/DL Creatinine 0.90 MG/DL 0.71 MG/DL Estimat Glomerular Filtration 65 ML/MIN 85 ML/MIN Rate Random Glucose 145 MG/DL 166 MG/DL Calcium Level 7.9 MG/DL 8.3 MG/DL Magnesium Level 1.6 MG/DL Microbiology Date/Time Procedure Status Source Growth 02/22/16 20:25 Aerobic Blood Culture - Preliminary Resulted Blood Peripheral NO GROWTH IN 3 DAYS 02/22/16 20:25 Anaerobic Blood Culture - Preliminary Resulted Blood Peripheral NO GROWTH IN 3 DAYS 02/22/16 20:35 Aerobic Blood Culture - Preliminary Resulted Blood Peripheral NO GROWTH IN 3 DAYS 02/22/16 20:35 Anaerobic Blood Culture - Preliminary Resulted Blood Peripheral NO GROWTH IN 3 DAYS 02/22/16 20:35 Urine Culture - Preliminary Resulted Urine Catheterized Urine Proteus Mirabilis Gram Negative Khalif Nasal screen positive for MRSA. PHYSICAL EXAMINATION GENERAL: On the ventilator. alert. Follows commands. HEENT: Head atraumatic. Extraocular movements grossly intact. No icterus. No conjunctival erythema. Oropharynx intubated. Buccal mucosa is moist. NECK: Supple without adenopathy or swelling. LUNGS: Breath sounds decreased. HEART: Regular S1, S2. No audible murmurs. ABDOMEN: Obese. A surgical midline scar appears intact. Nontender. Decreased bowel sounds. Left-sided colostomy appears functioning. GENITOURINARY: No visible abnormality. EXTREMITIES: No clubbing or cyanosis or edema. NEUROLOGIC: Unable to fully assess. SKIN: No rash. warm and most. IMPRESSION 1. Sepsis with shock. 2. Urinary tract infection. 3. Pneumonia. 4. Acute respiratory failure. 5. Acute renal failure. 6. Leukocytosis. Secondary to sepsis. WBC decreasing. RECOMMENDATIONS 1. Continue linezolid. 2. Continue imipenem. 3. Follow blood culture. 4. Follow urine culture. 5. Obtain sputum culture. 6. Monitor white blood cell count. 7. Follow clinical status. Manny Mcwilliams MD Feb 25, 2016 11:29
[2016-02-25] MEDS ORDERED: FUROSEMIDE 40 MG/4 ML VIAL ONE (14:24)
[2016-02-25] MEDS ORDERED: FUROSEMIDE 40 MG/4 ML VIAL IV PUSH ONE (14:30)
[2016-02-25] MEDS: PROPOFOL 1000 MG/100 ML INJ 100 ML IV SCH (17:47)
[2016-02-26] VITALS (21 sets, daily range): BP systolic 93–115; BP diastolic 49–57; PULSE 79–126; RESP 16–30; TEMP 97.9–99.1; O2SAT 96–100
[2016-02-26] MEDS: LINEZOLID 600 MG PREMIX 300 ML IV SCH ×3 (03:30→23:05)
[2016-02-26] MEDS: RESP: ALBUTEROL 2.5 MG/IPRATROPIUM 0.5 MG NEB (SCH) INH ×4 (03:37→21:08)
[2016-02-26] MEDS: CHLORHEXIDINE GLUCONATE 2 % 1 PACK (2 CLOTHS) TOP SCH (04:00)
[2016-02-26 05:53] LABS: HEMATOCRIT 32.4 % (35.0-46.0); MEAN CELL VOLUME 84.6 FL (80.0-100.0); MEAN CORPUSCULAR HEMOGLOBIN 26.9 PG (27.0-34.0); MEAN CORPUSCULAR HGB CONC 31.7 % (32.0-36.0); PLATELET COUNT 201 TH/MM3 (150-450); RED BLOOD COUNT 3.83 MIL/MM3 (4.00-5.30); RED CELL DISTRIBUTION WIDTH 17.4 % (11.6-17.2); REVIEW FLAG FINAL; WHITE BLOOD COUNT 21.7 TH/MM3 (4.0-11.0)
[2016-02-26 06:19] LABS: BICARBONATE 32.1 MEQ/L (21.0-32.0); MAGNESIUM 1.5 MG/DL (1.5-2.5)
[2016-02-26] MEDS: PROPOFOL 1000 MG/100 ML INJ 100 ML IV SCH ×4 (06:21→21:43)
[2016-02-26] MEDS: INSULIN NovoLIN REGULAR SUPPLEMENTAL SCALE SQ SCH ×4 (06:26→21:00)
[2016-02-26] MEDS: IMIPENEM/CILASTATIN INJ 500 MG in SODIUM CHLORIDE 0.9% INJ 100 ML IV SCH ×3 (06:28→21:42)
[2016-02-26 06:34] LABS: POTASSIUM 2.9 MEQ/L (3.5-5.1)
[2016-02-26] MEDS: POTASSIUM CHLOR 40 MEQ PREMIX 100 ML IV PRN ×2 (07:14→10:41)
[2016-02-26] MEDS: PANTOPRAZOLE SODIUM 40 MG VIAL IV SCH (07:14)
[2016-02-26] MEDS: fentaNYL DRIP 250 ML IV SCH ×2 (07:14→23:05)
[2016-02-26] MEDS: SODIUM CHLORIDE 0.9% FLUSH 5 ML FLUSH IV FLUSH SCH ×2 (07:15→21:00)
[2016-02-26] MEDS: CHLORHEXIDINE 0.12% (ORAL KIT) 15 ML CUP MT SCH ×2 (07:15→21:41)
[2016-02-26] MEDS: SODIUM CHLOR 0.9% 1000 ML INJ 1,000 ML IV SCH ×2 (08:32→22:03)
[2016-02-26] MEDS: DOCUSATE SODIUM 100 MG/10 ML UDC G-TUBE SCH ×2 (08:32→21:45)
[2016-02-26] MEDS ORDERED: MIDAZOLAM HCL 5 MG/ML VIAL (1 ML) ONE (08:53)
[2016-02-26] MEDS ORDERED: MIDAZOLAM HCL 2 MG/2 ML VIAL IV PUSH PRN (09:30)
--- NOTE | 2016-02-26 10:02 | RADRPT ---
EXAM DATE/TIME: 02/26/2016 09:00 [facility] COMPARISON: CT THORAX W/O CONTRAST, February 23, 2016, 16:35. CHEST SINGLE AP, February 23, 2016, 2:41. INDICATIONS: Respiratory failure MEDICAL HISTORY: Chronic obstructive pulmonary disease. Cardiovascular disease. Diverticulitis. SURGICAL HISTORY: Gastric bypass. Colostomy. ENCOUNTER: Subsequent ACUITY: 4 - 6 days PAIN SCORE: Non-responsive. LOCATION: Bilateral chest FINDINGS: A right internal jugular central line has its tip in the superior vena cava. The endotracheal tube h as its tip 2 cm above the yaritza. A nasogastric tube has its tip below the diaphragm. Bibasilar ate lectasis and/or mild infiltrates are noted. A small left pleural effusion is noted. The heart is st able. CONCLUSION: 1. Bibasilar atelectasis and/or infiltrates. 2. Small left pleural effusion. 3. Multiple tubes and lines are in good position. Shankar Graves MD on February 26, 2016 at 9:49 Board Certified Radiologist. This report was verified electronically.
[2016-02-26] MEDS: HEPARIN SODIUM - SQ 10,000 UNITS/ML VIAL SQ SCH ×2 (10:32→21:46)
[2016-02-26] MEDS: NOREPINEPHRINE-DEXTROSE DRIP 250 ML IV SCH ×2 (12:29→23:05)
--- NOTE | 2016-02-26 12:29 | HHI.IDPN ---
Note Infectious Disease Note Patient remains on the vent. Tolerated CPAP for 3 hours today. Awakens to voice. On Levophed which had to be increased because the blood pressure dropped when she became agitated. WBC decreasing. Temp lower. Now afebrile. D/W RN. This is a 56-year-old white female who was brought to the emergency department from a halfway facility. The patient reportedly was in respiratory distress and had decreased alertness at the halfway facility. The patient was recently in the hospital in January 2016. She was treated with antibiotics for MRSA pneumonia. She was also treated recently for a UTI with ESBL. She received Macrobid for seven days. After that she was put on Levaquin for presumed stomach infection. She was due to continue antibiotics until 01/30 with the Levaquin. Chest x-ray was obtained and it shows left lower lobe pneumonia. PAST MEDICAL HISTORY 1. COPD. 2. Anxiety. 3. Depression. 4. Gastroesophageal reflux disease. 5. Diverticulitis. 6. Kidney stones. 7. Herniated disc. 8. Sleep apnea. 9. Gastric bypass. 10. Colostomy. 11. Chronic back pain. 12. MRSA pneumonia. ALLERGIES PENICILLIN. Current Medications Medications (Trade) Dose Ordered Sig/Elliot Route PRN Reason Start Time Stop Time Status Last Admin Dose Admin Fentanyl Citrate 250 ml @ 0 mls/hr TITRATE IV 02/22/16 21:00 02/26/16 07:14 Norepinephrine Bitartrate (Levophed-Dextrose Drip) 250 ml @ 0 mls/hr TITRATE IV 02/22/16 23:00 02/25/16 05:28 Terbutaline Sulfate 1 mg 1 mg UNSCH PRN SQ For Extravasation 02/22/16 23:00 Sodium Chloride (NS 1000 ml Inj) 1,000 ml @ 84 mls/hr [id number] IV 02/22/16 22:45 02/26/16 08:32 IV Flush (NS Flush) 2 ml UNSCH PRN IV FLUSH FLUSH AFTER USING IV ACCESS 02/22/16 22:45 IV Flush (NS Flush) 2 ml BID IV FLUSH 02/23/16 09:00 02/26/16 07:15 Acetaminophen (Tylenol) 650 mg Q6H PRN PO PAIN 1-10 AND/OR FEVER >101F 02/22/16 22:45 02/23/16 12:36 Pantoprazole Sodium (Protonix Inj) 40 mg DAILY IV 02/23/16 09:00 02/26/16 07:14 Ondansetron HCl (Zofran Inj) 4 mg Q6H PRN IV NAUSEA OR VOMITING 02/22/16 22:45 Docusate Sodium (Colace Liq) 100 mg Q12H G-TUBE 02/22/16 22:45 02/25/16 22:22 Bisacodyl (Dulcolax Supp) 10 mg DAILY PRN RECTAL CONSTIPATION 02/22/16 22:45 Magnesium Hydroxide (Milk Of Magnesia Liq) 30 ml Q12H PRN PO CONSTIPATION 02/22/16 22:45 Sennosides (Senokot) 17.2 mg Q12H PRN PO CONSTIPATION 02/22/16 22:45 Heparin Sodium (Porcine) (Heparin Inj) 5,000 units Q12H SQ 02/22/16 22:45 02/26/16 10:32 Miscellaneous Information 1 Q361D XX 02/22/16 22:45 Chlorhexidine Gluconate (Chlorhexidine 2% Cloth) 3 pack Taper DAILY@04 TOP 02/23/16 04:00 02/18/17 03:59 02/26/16 04:00 Chlorhexidine Gluconate 3 pack 3 pack UNSCH PRN TOP HYGIENIC CARE 02/22/16 22:45 Propofol 100 ml @ 0 mls/hr TITRATE IV 02/22/16 22:45 02/26/16 06:21 Potassium Chloride 100 ml @ 50 mls/hr Q2H PRN IV For Potassium 2.8 - 3.2 mEq/L 02/22/16 22:45 02/26/16 10:41 Potassium Chloride (KCl 20 Meq Premix Inj) 100 ml @ 50 mls/hr Q2H PRN IV For Potassium 2.8 - 3.2 mEq/L 02/22/16 22:45 Potassium Chloride 40 meq 40 meq UNSCH PRN PO/TUBE For Potassium 3.3 - 3.5 mEq/L 02/22/16 22:45 02/25/16 11:57 Potassium Chloride 100 ml @ 25 mls/hr UNSCH PRN IV For Potassium 3.3 - 3.5 mEq/L 02/22/16 22:45 Potassium Chloride 100 ml @ 50 mls/hr Q2H PRN IV For Potassium 3.3 - 3.5 mEq/L 02/22/16 22:45 Magnesium Sulfate/ Sodium Chloride (Magnesium Sulfate Inj/NS Inj) 100 ml @ 50 mls/hr UNSCH PRN IV For Magnesium 0.9 - 1.1 mg/dL 02/22/16 22:45 Magnesium Oxide 800 mg 800 mg UNSCH PRN PO For Magnesium 1.2 - 1.6 mg/dL 02/22/16 22:45 Magnesium Sulfate/ Sodium Chloride (Magnesium Sulfate Inj/NS Inj) 100 ml @ 50 mls/hr UNSCH PRN IV For Magnesium 1.2 - 1.6 mg/dL 02/22/16 22:45 Potassium Phosphate 2000 mg 2,000 mg Q4H PRN PO For Phosphorus < 2.5 mg/dL 02/22/16 22:45 Sodium Phosphate/ Sodium Chloride (Sodium Phosphate Inj/NS 250 ml Inj) 250 ml @ 42 mls/hr UNSCH PRN IV For Phosphorus < 2.5 mg/dL 02/22/16 22:45 02/26/16 08:32 Potassium Chloride (KCl 40 Meq/30 ml Liq) 40 meq UNSCH PRN PO/TUBE SEE LABEL COMMENTS 02/22/16 22:45 Potassium Phosphate 2000 mg 2,000 mg UNSCH PRN PO/TUBE SEE LABEL COMMENTS 02/22/16 22:45 Potassium Phosphate/Sodium Chloride (Potassium Phosphate Inj/NS 250 ml Inj) 260 ml @ 42 mls/hr UNSCH PRN IV SEE LABEL COMMENTS 02/22/16 22:45 Chlorhexidine Gluconate (Peridex 0.12% Liq) 15 ml BID@08,20 MT 02/23/16 08:00 02/26/16 07:15 Dextrose (D50w (Vial) Inj) 25 ml UNSCH PRN IV PUSH HYPOGLYCEMIA-SEE COMMENTS 02/22/16 22:45 Glucagon 1 mg 1 mg UNSCH PRN OTHER HYPOGLYCEMIA-SEE COMMENTS 02/22/16 22:45 Linezolid 300 ml @ 300 mls/hr Q12H IV 02/23/16 12:00 02/26/16 11:18 Imipenem/ Cilastatin Sodium/ Sodium Chloride (Primaxin Inj/NS Inj) 100 ml @ 200 mls/hr Q8H IV 02/23/16 13:00 02/26/16 06:28 Midazolam HCl (Versed Inj) 2 mg Q2H PRN IV PUSH ANXIETY AND/OR AGITATION 02/26/16 09:30 02/26/16 08:50 SOCIAL HISTORY No tobacco, alcohol or illicit drugs. FAMILY HISTORY Unable to obtain. REVIEW OF SYSTEMS Unable to obtain. OBJECTIVE: Vital Signs Date Time Temp Pulse Resp B/P Pulse Ox O2 Delivery O2 Flow Rate FiO2 02/26/16 10:00 40 02/26/16 10:00 126 02/26/16 09:54 100 40 02/26/16 08:00 97.9 115 24 107/57 100 02/26/16 08:00 116 02/26/16 08:00 40 02/26/16 07:45 40 02/26/16 07:45 98 40 02/26/16 07:35 100 40 02/26/16 06:00 98 02/26/16 04:03 98 40 02/26/16 04:00 98.1 99 30 104/55 98 02/26/16 04:00 40 02/26/16 04:00 99 02/26/16 02:00 104 02/26/16 01:01 100 40 02/26/16 00:00 40 02/26/16 00:00 98.0 104 29 94/54 98 02/26/16 00:00 104 02/25/16 22:08 99 40 02/25/16 22:00 86 02/25/16 20:00 40 02/25/16 20:00 97.8 84 16 92/50 96 02/25/16 20:00 84 02/25/16 19:44 98 40 02/25/16 18:00 92 02/25/16 16:40 96 40 02/25/16 16:00 98.2 86 16 103/54 96 02/25/16 16:00 84 02/25/16 16:00 40 02/25/16 14:00 86 02/25/16 02/25/16 02/26/16 15:00 23:00 07:00 Intake Total 1380 ml 1600 ml 1455 ml Output Total 450 ml 1600 ml 690 ml Balance 930 ml 0 ml 765 ml Intake IV Total 995 ml 909 ml 960 ml Tube Feeding 265 ml 571 ml 375 ml Other 120 ml 120 ml 120 ml Output Urine Total 350 ml 1600 ml 390 ml Stool Total 100 ml 300 ml Laboratory Tests Test 02/25/16 02/26/16 05:50 04:30 White Blood Count 28.3 TH/MM3 21.7 TH/MM3 Red Blood Count 4.46 MIL/MM3 3.83 MIL/MM3 Hemoglobin 11.6 GM/DL 10.3 GM/DL Hematocrit 37.5 % 32.4 % Mean Corpuscular Volume 83.9 FL 84.6 FL Mean Corpuscular Hemoglobin 25.9 PG 26.9 PG Mean Corpuscular Hemoglobin 30.9 % 31.7 % Concent Red Cell Distribution Width 17.2 % 17.4 % Platelet Count 250 TH/MM3 201 TH/MM3 Mean Platelet Volume 9.7 FL 10.5 FL Laboratory Tests Test 02/25/16 02/26/16 05:50 04:30 Sodium Level 143 MEQ/L 143 MEQ/L Potassium Level 3.3 MEQ/L 2.9 MEQ/L Chloride Level 107 MEQ/L 106 MEQ/L Carbon Dioxide Level 28.7 MEQ/L 32.1 MEQ/L Anion Gap 7 MEQ/L 5 MEQ/L Blood Urea Nitrogen 17 MG/DL 15 MG/DL Creatinine 0.71 MG/DL 0.49 MG/DL Estimat Glomerular Filtration 85 ML/MIN 130 ML/MIN Rate Random Glucose 166 MG/DL 160 MG/DL Calcium Level 8.3 MG/DL 7.8 MG/DL Phosphorus Level 1.2 MG/DL Magnesium Level 1.5 MG/DL Microbiology Date/Time Procedure Status Source Growth 02/25/16 12:48 Gram Stain - Final Resulted Sputum Endotracheal 02/25/16 12:48 Sputum Culture - Preliminary Resulted S. Aureus Mrsa IMAGING: Chest X-Ray 02/26/16 0000 Signed Impressions: Service Date/Time: Friday, February 26, 2016 09:00 - CONCLUSION: 1. Bibasilar atelectasis and/or infiltrates. 2. Small left pleural effusion. 3. Multiple tubes and lines are in good position. Shankar Graves MD Chest CT 02/23/16 0000 Signed Impressions: Service Date/Time: Tuesday, February 23, 2016 16:35 - CONCLUSION: Bilateral lower lobe consolidated infiltrates or prominent left than the right. ET tube above the yaritza and nasogastric tube passing into the stomach Duncan Friedman MD Abdomen/Pelvis CT 02/23/16 0000 Signed Impressions: Service Date/Time: Tuesday, February 23, 2016 16:35 - CONCLUSION: No acute intra-abdominal process. Colostomy distal left descending colon. Prior cholecystectomy with clips in place . Solitary punctate bilateral renal nonobstructing calyceal stone Duncan Friedman MD PHYSICAL EXAMINATION GENERAL: On the ventilator. Awakens to voice. Follows commands. HEENT: Head atraumatic. Extraocular movements grossly intact. No icterus. No conjunctival erythema. Oropharynx intubated. Buccal mucosa is moist. NECK: Supple without adenopathy or swelling. LUNGS: Breath sounds remain decreased. HEART: Regular S1, S2. No audible murmurs. ABDOMEN: Obese. A surgical midline scar appears intact. Nontender. Decreased bowel sounds. Left-sided colostomy appears functioning. GENITOURINARY: No visible abnormality. EXTREMITIES: No clubbing or cyanosis or edema. NEUROLOGIC: Unable to fully assess. Becomes agitated. SKIN: No rash. warm and most. IMPRESSION 1. Sepsis with shock. 2. Urinary tract infection. ESBL Klebsiella, Proteus. 3. Pneumonia. MRSA. 4. Acute respiratory failure. Vent dependent. 5. Acute renal failure. improving. 6. Leukocytosis. Secondary to sepsis. WBC decreasing. RECOMMENDATIONS 1. Continue linezolid. 2. Continue imipenem. 3. Monitor white blood cell count. 4. Follow clinical status. 5. Monitor Platelet count while on Linezolid. 6. Vent weaning per CCM. Manny Mcwilliams MD Feb 26, 2016 12:29
--- NOTE | 2016-02-26 17:53 | HHI.CCPN ---
Subjective Remarks/Hospital Course Hospital Course: Patient is a 56 year old female who presented to ED from a [facility] respiratory distress. Patient was noted to have decreased alertness at the [facility]. As per nursing, patient had a nonproductive cough with diminished lung sounds to her lungs. Patient was on continuous oxygen at 2 L, reports that her pulse ox was 84%. Patient was hypoxic when [facility] arrived on scene, patient was placed on BiPAP and transported to the ED. Upon arrival to the ED the patient had acute hypoxic respiratory failure and was intubated. The patient was noted to be hypotensive, central line was placed vasopressor support was initiated. The patient was recently discharged and was currently on antibiotics for ESBL, and a UTI . Labs were obtained and WBC count was noted to be elevated. Critical care medicine was consulted for management and treatment. Subjective: 02/23: pressor requirement starting to stabilize. lactate cleared. uop adequate. awake and following commands. shock persists. renal function improving. urine with GNRs. 02/24: Tmax 99.5. The patient continues on vasopressor support. CPAP trials were attempted yesterday and the patient failed after 30 minutes. 02/25: Levophed discontinued last night, patient continues on fentanyl 100 mcgs for ventilator synchrony. CPAP trials lasting approximately 1 hour today. UA revealed ESBL, patient continues on antibiotics per ID. Objective Vital Signs Date Time Temp Pulse Resp B/P Pulse Ox O2 Delivery O2 Flow Rate FiO2 02/26/16 16:41 99 40 02/26/16 16:00 85 02/26/16 16:00 99.0 18 99/55 02/23/16 02:57 Ventilator Intake and Output 02/25/16 02/25/16 02/26/16 08:00 16:00 00:00 Intake Total 1698 ml 1380 ml 1600 ml Output Total 850 ml 450 ml 1600 ml Balance 848 ml 930 ml 0 ml Result Diagram: 02/26/16 0430 02/26/16 0430 Imaging Last 24 hours Impressions Chest X-Ray 02/26/16 0000 Signed Impressions: Service Date/Time: Friday, February 26, 2016 09:00 - CONCLUSION: 1. Bibasilar atelectasis and/or infiltrates. 2. Small left pleural effusion. 3. Multiple tubes and lines are in good position. Shankar Graves MD Last 24 hours Impressions Chest X-Ray 02/22/16 1900 Signed Impressions: Service Date/Time: Monday, February 22, 2016 19:45 - CONCLUSION: 1. Basilar airspace disease, stable to slightly improved from January 24, 2016. Cardiomegaly. Braden Gomez MD Objective Remarks GENERAL: A super morbidly obese female lying in bed intubated, following commands this morning. SKIN: Warm and dry. HEAD: Atraumatic. Normocephalic. EYES: Pupils equal and round. No scleral icterus. No injection or drainage. ENT: No nasal bleeding or discharge. Mucous membranes pink and moist. NECK: Trachea midline. Unable to assess JVD. CARDIOVASCULAR: Normal rate, regular rhythm. RESPIRATORY: Mechanical ventilation Clear to auscultation. Breath sounds equal bilaterally. GASTROINTESTINAL: Abdomen obese soft, non-tender, nondistended. Well-healed midline scar No guarding. Colostomy left upper quadrant MUSCULOSKELETAL: Extremities without clubbing, cyanosis, or edema. No obvious deformities. NEUROLOGICAL: RASS -1. follows commands GCS 11 T Fentanyl infusion currently at 100 mcgs Date of Insertion: Feb 23, 2016 Side: Right Location: Internal, Jugular A/P Assessment and Plan This is a 56-year-old female with altered mental status with acute hypoxic respiratory failure is likely secondary to septic shock. The patient has had a previous admission approximately 12 weeks ago. Presents with hypotension requiring vasopressor support and elevated WBC count. Patient is critically ill and septic shock, and prognosis is guarded. Neurologic: Altered mental status Toxic /metabolic encephalopathy Anxiety -RASS goal -2. -IV sedation fentanyl infusion -Sedation holiday per ICU protocol -Will restart Neurontin, and Xanax patient's home med Respiratory: Obstructive sleep apnea Acute hypoxic respiratory failure -Maintain O2 sat greater than 92%, wean FiO2 -Maintain tidal volume 6-8 cc/per ideal body weight -start CPAP trials daily, lasted 1 hour Cardiovascular: Hypotension secondary to septic shock History of hypertension -Norepinephrine infusion discontinued 02/25 -maintain MAP greater than 65 mmHg Renal: NADIR-resolved Renal insufficiency-resolved -Maintain Ocampo -Creatnine 0.7 -- Strict I/Os FEN/GI: -Continue Tube feeds, Glucerna 1.5 currently at 20 cc/hour -IVF NS 100 cc/hour -Bowel regimen Heme/ID: Multilobar pneumonia (01/30 discharge hospital) UTI- ESBL -Follow-up blood, sputum and urine cultures -Patient was still on Macrobid status post discharge from hospital weeks ago, for UTI -ID on board-continue Linezolid, imipenem, follow their recommendations Endocrine: Monitor blood glucose levels per ICU protocol -- SSI Prophylaxis: GI Prophylaxis Protonix DVT Prophylaxis -- SCDs Heparin Lines: Right IJ central line Dr. Bundy 02/22/16, peripheral IVs 2 left radial art line 02/22-discontinued 02/23 Dispo: remain in the ICU. This patient remains critically ill with one or more organ systems which are or may become a threat to life. I have spent in excess of 44 minutes discontinuously in the care and management of this patient. This time is exclusive of procedures, and includes, but is not limited to, evaluation of the patient, review of the medical record, discussions with family, consultants, nursing staff, or respiratory therapy, and documentation in the medical record. Physician Suzanne Mcdonald MD Feb 26, 2016 17:53
[2016-02-26 20:43] LABS: POTASSIUM 3.5 MEQ/L (3.5-5.1)
[2016-02-27] VITALS (20 sets, daily range): BP systolic 91–120; BP diastolic 51–61; PULSE 74–86; RESP 16–20; TEMP 98.2–98.9; O2SAT 95–100
[2016-02-27] MEDS: RESP: ALBUTEROL 2.5 MG/IPRATROPIUM 0.5 MG NEB (SCH) INH (03:10)
[2016-02-27] MEDS: CHLORHEXIDINE GLUCONATE 2 % 1 PACK (2 CLOTHS) TOP SCH ×2 (04:00→21:30)
[2016-02-27 05:07] LABS: HEMATOCRIT 32.9 % (35.0-46.0); MEAN CELL VOLUME 86.1 FL (80.0-100.0); MEAN CORPUSCULAR HEMOGLOBIN 25.8 PG (27.0-34.0); PLATELET COUNT 212 TH/MM3 (150-450); RED BLOOD COUNT 3.83 MIL/MM3 (4.00-5.30); REVIEW FLAG FINAL; WHITE BLOOD COUNT 14.6 TH/MM3 (4.0-11.0)
[2016-02-27 05:11] LABS: PROTHROMBIN TIME - PATIENT 10.5 SEC (9.8-11.6)
[2016-02-27 05:39] LABS: BICARBONATE 30.2 MEQ/L (21.0-32.0); MAGNESIUM 1.8 MG/DL (1.5-2.5); POTASSIUM 3.2 MEQ/L (3.5-5.1)
[2016-02-27] MEDS: INSULIN NovoLIN REGULAR SUPPLEMENTAL SCALE SQ SCH ×4 (06:11→20:32)
[2016-02-27] MEDS: POTASSIUM CHLOR 40 MEQ PREMIX 100 ML IV PRN ×2 (06:11→08:46)
[2016-02-27] MEDS: IMIPENEM/CILASTATIN INJ 500 MG in SODIUM CHLORIDE 0.9% INJ 100 ML IV SCH ×3 (06:11→20:32)
[2016-02-27] MEDS: GABAPENTIN 250 MG/5 ML UDC TUBE SCH ×3 (07:53→16:35)
[2016-02-27] MEDS: SODIUM CHLORIDE 0.9% FLUSH 5 ML FLUSH IV FLUSH SCH ×2 (07:54→19:35)
[2016-02-27] MEDS: PANTOPRAZOLE SODIUM 40 MG VIAL IV SCH (07:54)
[2016-02-27] MEDS: PROPOFOL 1000 MG/100 ML INJ 100 ML IV SCH ×4 (07:55→20:32)
[2016-02-27] MEDS: NOREPINEPHRINE-DEXTROSE DRIP 250 ML IV SCH ×2 (08:46→17:48)
[2016-02-27] MEDS: CHLORHEXIDINE 0.12% (ORAL KIT) 15 ML CUP MT SCH ×2 (08:46→19:35)
[2016-02-27] MEDS: SODIUM CHLOR 0.9% 1000 ML INJ 1,000 ML IV SCH ×2 (10:00→20:32)
[2016-02-27] MEDS: LINEZOLID 600 MG PREMIX 300 ML IV SCH ×2 (11:48→22:46)
[2016-02-27] MEDS: HEPARIN SODIUM - SQ 10,000 UNITS/ML VIAL SQ SCH ×2 (11:49→22:47)
[2016-02-27] MEDS: DOCUSATE SODIUM 100 MG/10 ML UDC G-TUBE SCH ×2 (11:49→20:32)
[2016-02-27] MEDS: fentaNYL DRIP 250 ML IV SCH (13:30)
--- NOTE | 2016-02-27 13:40 | HHI.IDPN ---
Note Infectious Disease Note Patient remains on the vent. Awakens to voice. On Levophed. Has coughing spells. Afebrile. D/W RN. This is a 56-year-old white female who was brought to the emergency department from a sn[facility] facility. The patient reportedly was in respiratory distress and had decreased alertness at the snf facility. The patient was recently in the hospital in January 2016. She was treated with antibiotics for MRSA pneumonia. She was also treated recently for a UTI with ESBL. She received Macrobid for seven days. After that she was put on Levaquin for presumed stomach infection. She was due to continue antibiotics until 01/30 with the Levaquin. Chest x-ray was obtained and it shows left lower lobe pneumonia. PAST MEDICAL HISTORY 1. COPD. 2. Anxiety. 3. Depression. 4. Gastroesophageal reflux disease. 5. Diverticulitis. 6. Kidney stones. 7. Herniated disc. 8. Sleep apnea. 9. Gastric bypass. 10. Colostomy. 11. Chronic back pain. 12. MRSA pneumonia. ALLERGIES PENICILLIN. Current Medications Medications (Trade) Dose Ordered Sig/Elliot Route PRN Reason Start Time Stop Time Status Last Admin Dose Admin Fentanyl Citrate 250 ml @ 0 mls/hr TITRATE IV 02/22/16 21:00 02/27/16 13:30 Norepinephrine Bitartrate (Levophed-Dextrose Drip) 250 ml @ 0 mls/hr TITRATE IV 02/22/16 23:00 02/27/16 08:46 Terbutaline Sulfate 1 mg 1 mg UNSCH PRN SQ For Extravasation 02/22/16 23:00 Sodium Chloride (NS 1000 ml Inj) 1,000 ml @ 84 mls/hr [id number] IV 02/22/16 22:45 02/26/16 22:03 IV Flush (NS Flush) 2 ml UNSCH PRN IV FLUSH FLUSH AFTER USING IV ACCESS 02/22/16 22:45 IV Flush (NS Flush) 2 ml BID IV FLUSH 02/23/16 09:00 02/27/16 07:54 Acetaminophen (Tylenol) 650 mg Q6H PRN PO PAIN 1-10 AND/OR FEVER >101F 02/22/16 22:45 02/23/16 12:36 Pantoprazole Sodium (Protonix Inj) 40 mg DAILY IV 02/23/16 09:00 02/27/16 07:54 Ondansetron HCl (Zofran Inj) 4 mg Q6H PRN IV NAUSEA OR VOMITING 02/22/16 22:45 Docusate Sodium (Colace Liq) 100 mg Q12H G-TUBE 02/22/16 22:45 02/27/16 11:49 Bisacodyl (Dulcolax Supp) 10 mg DAILY PRN RECTAL CONSTIPATION 02/22/16 22:45 Magnesium Hydroxide (Milk Of Magnesia Liq) 30 ml Q12H PRN PO CONSTIPATION 02/22/16 22:45 Sennosides (Senokot) 17.2 mg Q12H PRN PO CONSTIPATION 02/22/16 22:45 Heparin Sodium (Porcine) (Heparin Inj) 5,000 units Q12H SQ 02/22/16 22:45 02/27/16 11:49 Miscellaneous Information 1 [id number] XX 02/22/16 22:45 Chlorhexidine Gluconate (Chlorhexidine 2% Cloth) 3 pack Taper DAILY@04 TOP 02/23/16 04:00 02/18/17 03:59 02/27/16 04:00 Chlorhexidine Gluconate 3 pack 3 pack UNSCH PRN TOP HYGIENIC CARE 02/22/16 22:45 Propofol 100 ml @ 0 mls/hr TITRATE IV 02/22/16 22:45 02/27/16 12:45 Potassium Chloride 100 ml @ 50 mls/hr Q2H PRN IV For Potassium 2.8 - 3.2 mEq/L 02/22/16 22:45 02/27/16 08:46 Potassium Chloride (KCl 20 Meq Premix Inj) 100 ml @ 50 mls/hr Q2H PRN IV For Potassium 2.8 - 3.2 mEq/L 02/22/16 22:45 Potassium Chloride 40 meq 40 meq UNSCH PRN PO/TUBE For Potassium 3.3 - 3.5 mEq/L 02/22/16 22:45 02/25/16 11:57 Potassium Chloride 100 ml @ 25 mls/hr UNSCH PRN IV For Potassium 3.3 - 3.5 mEq/L 02/22/16 22:45 Potassium Chloride 100 ml @ 50 mls/hr Q2H PRN IV For Potassium 3.3 - 3.5 mEq/L 02/22/16 22:45 Magnesium Sulfate/ Sodium Chloride (Magnesium Sulfate Inj/NS Inj) 100 ml @ 50 mls/hr UNSCH PRN IV For Magnesium 0.9 - 1.1 mg/dL 02/22/16 22:45 Magnesium Oxide 800 mg 800 mg UNSCH PRN PO For Magnesium 1.2 - 1.6 mg/dL 02/22/16 22:45 Magnesium Sulfate/ Sodium Chloride (Magnesium Sulfate Inj/NS Inj) 100 ml @ 50 mls/hr UNSCH PRN IV For Magnesium 1.2 - 1.6 mg/dL 02/22/16 22:45 Potassium Phosphate 2000 mg 2,000 mg Q4H PRN PO For Phosphorus < 2.5 mg/dL 02/22/16 22:45 Sodium Phosphate/ Sodium Chloride (Sodium Phosphate Inj/NS 250 ml Inj) 250 ml @ 42 mls/hr UNSCH PRN IV For Phosphorus < 2.5 mg/dL 02/22/16 22:45 02/26/16 08:32 Potassium Chloride (KCl 40 Meq/30 ml Liq) 40 meq UNSCH PRN PO/TUBE SEE LABEL COMMENTS 02/22/16 22:45 Potassium Phosphate 2000 mg 2,000 mg UNSCH PRN PO/TUBE SEE LABEL COMMENTS 02/22/16 22:45 Potassium Phosphate/Sodium Chloride (Potassium Phosphate Inj/NS 250 ml Inj) 260 ml @ 42 mls/hr UNSCH PRN IV SEE LABEL COMMENTS 02/22/16 22:45 Chlorhexidine Gluconate (Peridex 0.12% Liq) 15 ml BID@08,20 MT 02/23/16 08:00 02/27/16 08:46 Dextrose (D50w (Vial) Inj) 25 ml UNSCH PRN IV PUSH HYPOGLYCEMIA-SEE COMMENTS 02/22/16 22:45 Glucagon 1 mg 1 mg UNSCH PRN OTHER HYPOGLYCEMIA-SEE COMMENTS 02/22/16 22:45 Linezolid 300 ml @ 300 mls/hr Q12H IV 02/23/16 12:00 02/27/16 11:48 Imipenem/ Cilastatin Sodium/ Sodium Chloride (Primaxin Inj/NS Inj) 100 ml @ 200 mls/hr Q8H IV 02/23/16 13:00 02/27/16 12:46 Midazolam HCl (Versed Inj) 2 mg Q2H PRN IV PUSH ANXIETY AND/OR AGITATION 02/26/16 09:30 02/26/16 08:50 Alprazolam (Xanax) 0.5 mg Q4H PRN PO ANXIETY 02/26/16 19:00 Gabapentin (Neurontin Liq) 300 mg TID TUBE 02/27/16 09:00 02/27/16 12:45 SOCIAL HISTORY No tobacco, alcohol or illicit drugs. FAMILY HISTORY Unable to obtain. REVIEW OF SYSTEMS Unable to obtain. OBJECTIVE: Vital Signs Date Time Temp Pulse Resp B/P Pulse Ox O2 Delivery O2 Flow Rate FiO2 02/27/16 12:00 74 02/27/16 12:00 98.4 79 20 120/61 100 02/27/16 12:00 40 02/27/16 11:39 98 40 02/27/16 10:00 74 02/27/16 08:26 98 40 02/27/16 08:00 98.6 74 16 106/53 96 02/27/16 08:00 40 02/27/16 08:00 74 02/27/16 06:00 75 02/27/16 04:08 97 40 02/27/16 04:00 98.4 82 16 100/51 97 02/27/16 04:00 40 02/27/16 04:00 82 02/27/16 02:00 76 02/27/16 01:20 97 40 02/27/16 00:00 81 02/27/16 00:00 98.9 81 16 93/52 96 02/27/16 00:00 40 02/26/16 22:40 96 40 02/26/16 22:00 81 02/26/16 21:08 97 40 02/26/16 20:00 79 02/26/16 20:00 40 02/26/16 20:00 99.1 79 16 115/53 97 02/26/16 18:00 100 02/26/16 16:41 99 40 02/26/16 16:00 85 02/26/16 16:00 99.0 85 18 99/55 100 02/26/16 16:00 40 02/26/16 14:00 81 02/26/16 13:57 100 40 02/26/16 02/26/16 02/27/16 15:00 23:00 07:00 Intake Total 1742 ml 1936 ml 1666 ml Output Total 500 ml 530 ml 395 ml Balance 1242 ml 1406 ml 1271 ml Intake IV Total 1474 ml 1243 ml 1245 ml Tube Feeding 208 ml 513 ml 421 ml Other 60 ml 180 ml Output Urine Total 300 ml 350 ml 315 ml Stool Total 200 ml 180 ml 80 ml Laboratory Tests Test 02/26/16 02/27/16 04:30 02:00 White Blood Count 21.7 TH/MM3 14.6 TH/MM3 Red Blood Count 3.83 MIL/MM3 3.83 MIL/MM3 Hemoglobin 10.3 GM/DL 9.9 GM/DL Hematocrit 32.4 % 32.9 % Mean Corpuscular Volume 84.6 FL 86.1 FL Mean Corpuscular Hemoglobin 26.9 PG 25.8 PG Mean Corpuscular Hemoglobin 31.7 % 30.0 % Concent Red Cell Distribution Width 17.4 % 18.0 % Platelet Count 201 TH/MM3 212 TH/MM3 Mean Platelet Volume 10.5 FL 11.0 FL Laboratory Tests Test 02/26/16 02/26/16 02/27/16 04:30 20:00 02:00 Sodium Level 143 MEQ/L 144 MEQ/L Potassium Level 2.9 MEQ/L 3.5 MEQ/L 3.2 MEQ/L Chloride Level 106 MEQ/L 106 MEQ/L Carbon Dioxide Level 32.1 MEQ/L 30.2 MEQ/L Anion Gap 5 MEQ/L 8 MEQ/L Blood Urea Nitrogen 15 MG/DL 12 MG/DL Creatinine 0.49 MG/DL 0.49 MG/DL Estimat Glomerular Filtration 130 ML/MIN 130 ML/MIN Rate Random Glucose 160 MG/DL 125 MG/DL Calcium Level 7.8 MG/DL 8.1 MG/DL Phosphorus Level 1.2 MG/DL 2.9 MG/DL 3.1 MG/DL Magnesium Level 1.5 MG/DL 1.8 MG/DL Microbiology Date/Time Procedure Status Source Growth 02/25/16 12:48 Gram Stain - Final Complete Sputum Endotracheal 02/25/16 12:48 Sputum Culture - Final Complete S. Aureus Mrsa IMAGING: Chest X-Ray 02/26/16 0000 Signed Impressions: Service Date/Time: Friday, February 26, 2016 09:00 - CONCLUSION: 1. Bibasilar atelectasis and/or infiltrates. 2. Small left pleural effusion. 3. Multiple tubes and lines are in good position. Shankar Graves MD Chest CT 02/23/16 0000 Signed Impressions: Service Date/Time: Tuesday, February 23, 2016 16:35 - CONCLUSION: Bilateral lower lobe consolidated infiltrates or prominent left than the right. ET tube above the yaritza and nasogastric tube passing into the stomach Duncan Friedman MD Abdomen/Pelvis CT 02/23/16 0000 Signed Impressions: Service Date/Time: Tuesday, February 23, 2016 16:35 - CONCLUSION: No acute intra-abdominal process. Colostomy distal left descending colon. Prior cholecystectomy with clips in place . Solitary punctate bilateral renal nonobstructing calyceal stone Duncan Friedman MD PHYSICAL EXAMINATION GENERAL: On the ventilator. Awakens to voice. Follows commands. HEENT: No icterus. No conjunctival erythema. Oropharynx intubated. Buccal mucosa is moist. NECK: Supple without adenopathy or swelling. LUNGS: Breath sounds decreased. HEART: Regular S1, S2. No audible murmurs. ABDOMEN: Obese. A surgical midline scar appears intact. Nontender. Decreased bowel sounds. Left-sided colostomy appears functioning. GENITOURINARY: No visible abnormality. EXTREMITIES: No clubbing or cyanosis or edema. NEUROLOGIC: Unable to fully assess. Becomes agitated. SKIN: No rash. warm and most. IMPRESSION 1. Sepsis with shock. Still requiring pressors. 2. Urinary tract infection. ESBL Klebsiella, Proteus. 3. Pneumonia. MRSA. 4. Acute respiratory failure. Vent dependent. 5. Acute renal failure. improving. 6. Leukocytosis. Secondary to sepsis. WBC improving. RECOMMENDATIONS 1. Continue linezolid. 2. Continue imipenem. 3. Monitor white blood cell count. 4. Follow clinical status. 5. Monitor Platelet count while on Linezolid. 6. Vent weaning per [facility]. Manny Mcwilliams MD Feb 27, 2016 13:40
--- NOTE | 2016-02-27 17:42 | HHI.CCPN ---
Subjective Remarks/Hospital Course Hospital Course: Patient is a 56 year old female who presented to ED from a group home respiratory distress. Patient was noted to have decreased alertness at the group home. As per nursing, patient had a nonproductive cough with diminished lung sounds to her lungs. Patient was on continuous oxygen at 2 L, reports that her pulse ox was 84%. Patient was hypoxic when [facility] arrived on scene, patient was placed on BiPAP and transported to the ED. Upon arrival to the ED the patient had acute hypoxic respiratory failure and was intubated. The patient was noted to be hypotensive, central line was placed vasopressor support was initiated. The patient was recently discharged and was currently on antibiotics for ESBL, and a UTI . Labs were obtained and WBC count was noted to be elevated. Critical care medicine was consulted for management and treatment. Subjective: 02/23: pressor requirement starting to stabilize. lactate cleared. uop adequate. awake and following commands. shock persists. renal function improving. urine with GNRs. 02/24: Tmax 99.5. The patient continues on vasopressor support. CPAP trials were attempted yesterday and the patient failed after 30 minutes. 02/25: Levophed discontinued last night, patient continues on fentanyl 100 mcgs for ventilator synchrony. CPAP trials lasting approximately 1 hour today. UA revealed ESBL, patient continues on antibiotics per ID. 02/26:Afebrile. No acute issues overnight. Failed CPAP trials. Tubefeeds started currently at goal. Patient continues to be anxious, Xanax PRN resumed(home medication). Objective Vital Signs Date Time Temp Pulse Resp B/P Pulse Ox O2 Delivery O2 Flow Rate FiO2 02/27/16 16:00 98.2 77 20 91/52 95 02/27/16 16:00 40 Intake and Output 02/26/16 02/26/16 02/27/16 08:00 16:00 00:00 Intake Total 1455 ml 1742 ml 1936 ml Output Total 690 ml 500 ml 530 ml Balance 765 ml 1242 ml 1406 ml Result Diagram: 02/27/16 0200 02/27/16 0200 Other Results Microbiology Date/Time Procedure Status Source Growth 02/25/16 12:48 Gram Stain - Final Complete Sputum Endotracheal 02/25/16 12:48 Sputum Culture - Final Complete S. Aureus Mrsa Imaging Last 24 hours Impressions Chest X-Ray 02/26/16 0000 Signed Impressions: Service Date/Time: Friday, February 26, 2016 09:00 - CONCLUSION: 1. Bibasilar atelectasis and/or infiltrates. 2. Small left pleural effusion. 3. Multiple tubes and lines are in good position. Shankar Graves MD Last 24 hours Impressions Chest X-Ray 02/22/16 1900 Signed Impressions: Service Date/Time: Monday, February 22, 2016 19:45 - CONCLUSION: 1. Basilar airspace disease, stable to slightly improved from January 24, 2016. Cardiomegaly. Braden Gomez MD Objective Remarks GENERAL: A super morbidly obese female lying in bed intubated, following commands this morning. SKIN: Warm and dry. HEAD: Atraumatic. Normocephalic. EYES: Pupils equal and round. No scleral icterus. No injection or drainage. ENT: No nasal bleeding or discharge. Mucous membranes pink and moist. NECK: Trachea midline. Unable to assess JVD. CARDIOVASCULAR: Normal rate, regular rhythm. RESPIRATORY: Mechanical ventilation Clear to auscultation. Breath sounds equal bilaterally. GASTROINTESTINAL: Abdomen obese soft, non-tender, nondistended. Well-healed midline scar No guarding. Colostomy left upper quadrant MUSCULOSKELETAL: Extremities without clubbing, cyanosis, or edema. No obvious deformities. NEUROLOGICAL: RASS -1. follows commands GCS 11 T Fentanyl infusion currently at 100 mcgs Urinary Catheter: Yes Date of Insertion: Feb 23, 2016 Date of Insertion: Feb 23, 2016 Side: Right Location: Internal, Jugular A/P Assessment and Plan This is a 56-year-old female with altered mental status with acute hypoxic respiratory failure is likely secondary to septic shock. The patient has had a previous admission approximately 12 weeks ago. Presents with hypotension requiring vasopressor support and elevated WBC count. Patient is critically ill and in septic shock. Neurologic: Altered mental status Toxic /metabolic encephalopathy Anxiety -RASS goal -2. -IV sedation fentanyl infusion for ventilator synchrony. GCS 11T -Sedation holiday per ICU protocol - Neurontin,and Xanax patient's home med, continued Respiratory: Obstructive sleep apnea Acute hypoxic respiratory failure -Maintain O2 sat greater than 92%, wean FiO2 -Maintain tidal volume 6-8 cc/per ideal body weight -Continue CPAP trials daily, lasted 1 hour Cardiovascular: Hypotension secondary to septic shock History of hypertension -Norepinephrine infusion discontinued 02/25 -maintain MAP greater than 65 mmHg Renal: NADIR-resolved Renal insufficiency-resolved -Maintain Ocampo -Creatinine 0.7 -- Strict I/Os FEN/GI: -Continue Tube feeds, Vital High Protein currently at 65cc/hour -IVF NS 100 cc/hour -Bowel regimen -Colostomy-adequate output Heme/ID: Multilobar pneumonia (01/30 discharge hospital) UTI- ESBL Sputum- MRSA Anemia -Will obtain Fe -ID on board-Dr. Mcwilliams continue Linezolid, imipenem, follow their recommendations Endocrine: Monitor blood glucose levels per ICU protocol -- SSI Prophylaxis: GI Prophylaxis Protonix DVT Prophylaxis -- SCDs Heparin Lines: Right IJ central line Dr. Bundy 02/22/16, peripheral IVs 2 left radial art line 02/22-discontinued 02/23 Dispo: remain in the ICU. This patient remains critically ill with one or more organ systems which are or may become a threat to life. I have spent in excess of 41 minutes discontinuously in the care and management of this patient. This time is exclusive of procedures, and includes, but is not limited to, evaluation of the patient, review of the medical record, discussions with family, consultants, nursing staff, or respiratory therapy, and documentation in the medical record. Physician Suzanne Mcdonald MD Feb 27, 2016 17:42
[2016-02-28] VITALS (17 sets, daily range): BP systolic 94–118; BP diastolic 52–57; PULSE 64–119; RESP 16–20; TEMP 98.2–98.6; O2SAT 92–100
[2016-02-28] MEDS: PROPOFOL 1000 MG/100 ML INJ 100 ML IV SCH ×7 (00:49→21:51)
[2016-02-28] MEDS: IMIPENEM/CILASTATIN INJ 500 MG in SODIUM CHLORIDE 0.9% INJ 100 ML IV SCH ×3 (03:22→19:17)
[2016-02-28 03:29] LABS: BICARBONATE 31.2 MEQ/L (21.0-32.0); POTASSIUM 3.8 MEQ/L (3.5-5.1)
[2016-02-28 03:37] LABS: HEMATOCRIT 33.1 % (35.0-46.0); MEAN CELL VOLUME 85.2 FL (80.0-100.0); MEAN CORPUSCULAR HGB CONC 30.5 % (32.0-36.0); PLATELET COUNT 206 TH/MM3 (150-450); RED BLOOD COUNT 3.88 MIL/MM3 (4.00-5.30); RED CELL DISTRIBUTION WIDTH 17.6 % (11.6-17.2); REVIEW FLAG FINAL; WHITE BLOOD COUNT 10.4 TH/MM3 (4.0-11.0)
[2016-02-28] MEDS: INSULIN NovoLIN REGULAR SUPPLEMENTAL SCALE SQ SCH ×4 (05:55→19:52)
[2016-02-28 07:37] LABS: CRITICAL VALUE YES
[2016-02-28] MEDS: NOREPINEPHRINE-DEXTROSE DRIP 250 ML IV SCH ×3 (07:37→19:22)
--- NOTE | 2016-02-28 07:53 | HHI.CCPN ---
Subjective Remarks/Hospital Course Hospital Course: Patient is a 56 year old female who presented to ED from a group home respiratory distress. Patient was noted to have decreased alertness at the group home. As per nursing, patient had a nonproductive cough with diminished lung sounds to her lungs. Patient was on continuous oxygen at 2 L, reports that her pulse ox was 84%. Patient was hypoxic when [facility] arrived on scene, patient was placed on BiPAP and transported to the ED. Upon arrival to the ED the patient had acute hypoxic respiratory failure and was intubated. The patient was noted to be hypotensive, central line was placed vasopressor support was initiated. The patient was recently discharged and was currently on antibiotics for ESBL, and a UTI . Labs were obtained and WBC count was noted to be elevated. Critical care medicine was consulted for management and treatment. Subjective: 02/23: pressor requirement starting to stabilize. lactate cleared. uop adequate. awake and following commands. shock persists. renal function improving. urine with GNRs. 02/24: Tmax 99.5. The patient continues on vasopressor support. CPAP trials were attempted yesterday and the patient failed after 30 minutes. 02/25: Levophed discontinued last night, patient continues on fentanyl 100 mcgs for ventilator synchrony. CPAP trials lasting approximately 1 hour today. UA revealed ESBL, patient continues on antibiotics per ID. 02/26:Afebrile. No acute issues overnight. Failed CPAP trials. Tubefeeds started currently at goal. 02/27: Tmax 98.4. Overnight the patient was noted to have increased and thickened creamy secretions, no increase in FiO2 requirements. Will obtain chest x-ray this a.m.. The patient continues on CPAP trials, lasting only approximately 1 hour secondary to anxiety. Gabapentin, and Xanax home med was initiated yesterday. The patient continues on propofol and fentanyl infusions for ventilatory's synchrony. Objective Vital Signs Date Time Temp Pulse Resp B/P Pulse Ox O2 Delivery O2 Flow Rate FiO2 02/28/16 06:00 74 02/28/16 04:06 98 40 02/28/16 04:00 98.3 20 118/57 Intake and Output 02/27/16 02/27/16 02/28/16 08:00 16:00 00:00 Intake Total 1666 ml 1757 ml 1950 ml Output Total 395 ml 950 ml 1025 ml Balance 1271 ml 807 ml 925 ml Result Diagram: 02/28/16 0239 02/28/16 0239 Other Results Microbiology Date/Time Procedure Status Source Growth 02/25/16 12:48 Gram Stain - Final Complete Sputum Endotracheal 02/25/16 12:48 Sputum Culture - Final Complete S. Aureus [facility] Imaging Last 24 hours Impressions Chest X-Ray 02/26/16 0000 Signed Impressions: Service Date/Time: Friday, February 26, 2016 09:00 - CONCLUSION: 1. Bibasilar atelectasis and/or infiltrates. 2. Small left pleural effusion. 3. Multiple tubes and lines are in good position. Shankar Graves MD Last 24 hours Impressions Chest X-Ray 02/22/16 1900 Signed Impressions: Service Date/Time: Monday, February 22, 2016 19:45 - CONCLUSION: 1. Basilar airspace disease, stable to slightly improved from January 24, 2016. Cardiomegaly. Braden Gomez MD Objective Remarks GENERAL: A super morbidly obese female lying in bed intubated, extremely anxious. SKIN: Warm and dry. HEAD: Atraumatic. Normocephalic. EYES: Pupils equal and round. No scleral icterus. No injection or drainage. ENT: No nasal bleeding or discharge. Mucous membranes pink and moist. NECK: Trachea midline. Unable to assess JVD. Orotracheally intubation. CARDIOVASCULAR: Normal rate, regular rhythm. RESPIRATORY: Mechanical ventilation Clear to auscultation. Breath sounds equal bilaterally. GASTROINTESTINAL: Abdomen obese soft, non-tender, nondistended. Well-healed midline scar No guarding. Colostomy left upper quadrant MUSCULOSKELETAL: Extremities without clubbing, cyanosis, or edema. No obvious deformities. NEUROLOGICAL: RASS -1. follows commands GCS 11 T Fentanyl and propofol infusion. Date of Insertion: Feb 23, 2016 Vascular Central Line Catheter: Yes (CVP monitoring) Date of Insertion: Feb 23, 2016 Side: Right Location: Internal, Jugular A/P Assessment and Plan This is a 56-year-old female with altered mental status with acute hypoxic respiratory failure is likely secondary to septic shock. The patient has had a previous admission approximately 12 weeks ago. Presents with hypotension requiring vasopressor support and elevated WBC count. Patient is critically ill and in septic shock. Neurologic: Altered mental status Toxic /metabolic encephalopathy Anxiety -RASS goal -2. -IV sedation-propofol fentanyl infusion for ventilator synchrony. GCS 11T -Sedation holiday per ICU protocol - Neurontin,and Xanax patient's home med, continued -Will consider changing to Precedex for ventilator synchrony Respiratory: Obstructive sleep apnea Acute hypoxic respiratory failure -Maintain O2 sat greater than 92%, wean FiO2 -Maintain tidal volume 6-8 cc/per ideal body weight -Continue CPAP trials daily -Chest x-ray this a.m., follow-up results Cardiovascular: Hypotension secondary to septic shock History of hypertension -Norepinephrine infusion discontinued 02/25 -maintain MAP greater than 65 mmHg -CVP 5 Renal: NADIR-resolved Renal insufficiency-resolved -Maintain Ocampo -Creatinine 0.7--> 0.3 -- Strict I/Os FEN/GI: -Continue Tube feeds, Glucerna 1.5 currently at 20 cc/hour -IVF NS 100 cc/hour -Bowel regimen -Colostomy [id number] stool, adequate output Heme/ID: Multilobar pneumonia (01/30 discharge hospital) UTI- ESBL, Klebsiella, Proteus Sputum- MRSA -Follow-up chest x-ray this a.m. -WBC 21.2->14.6-10 today, improved -ID on board-Dr. Mcwilliams continue Linezolid, imipenem, follow their recommendations Endocrine: Monitor blood glucose levels per ICU protocol -- SSI Prophylaxis: GI Prophylaxis Protonix DVT Prophylaxis -- SCDs Heparin Lines: Right IJ central line Dr. Bundy 02/22/16, peripheral IVs 2 left radial art line 02/22-discontinued 02/23 Dispo: remain in the ICU. This patient remains critically ill with one or more organ systems which are or may become a threat to life. I have spent in excess of 45 minutes discontinuously in the care and management of this patient. This time is exclusive of procedures, and includes, but is not limited to, evaluation of the patient, review of the medical record, discussions with family, consultants, nursing staff, or respiratory therapy, and documentation in the medical record. Physician Suzanne Mcdonald MD Feb 28, 2016 07:53
[2016-02-28] MEDS: RESP: ALBUTEROL 2.5 MG/IPRATROPIUM 0.5 MG NEB (SCH) NEB ×4 (08:42→20:00)
[2016-02-28] MEDS ORDERED: DEXMEDETOMIDINE INJ 50 ML IV SCH (09:00)
--- NOTE | 2016-02-28 09:36 | RADRPT ---
EXAM DATE/TIME: 02/28/2016 08:12 [facility] COMPARISON: CT THORAX W/O CONTRAST, February 23, 2016, 16:35. CHEST SINGLE AP, February 26, 2016, 9:00. INDICATIONS : Respiratory failure. MEDICAL HISTORY : Chronic obstructive pulmonary disease. Gastroesophageal reflux disease. SURGICAL HISTORY : None. ENCOUNTER: Subsequent ACUITY: 4 - 6 days PAIN SCORE: Non-responsive. LOCATION: Bilateral chest FINDINGS: AP semiupright portable view of the chest demonstrate stable appearance of an endotracheal tube with the tip just beyond the level of the clavicles. Gastric tube in is identified and extended beyond the midportion of the exam. Right-sided central line with the tip in the proximal SVC. There is free air seen under the left hemidiaphragm. Stable left basilar atelectasis versus consolida tion or pleural. CONCLUSION: New free air under the left hemidiaphragm. Lines and tubes are stable.. Ivania Ya MD on February 28, 2016 at 9:30 Board Certified Radiologist. This report was verified electronically.
[2016-02-28] MEDS: GABAPENTIN 250 MG/5 ML UDC TUBE SCH ×3 (09:38→18:41)
[2016-02-28] MEDS: SODIUM CHLORIDE 0.9% FLUSH 5 ML FLUSH IV FLUSH SCH ×2 (09:39→19:11)
[2016-02-28] MEDS: PANTOPRAZOLE SODIUM 40 MG VIAL IV SCH (09:39)
[2016-02-28] MEDS: HEPARIN SODIUM - SQ 10,000 UNITS/ML VIAL SQ SCH ×2 (09:40→21:45)
[2016-02-28] MEDS: CHLORHEXIDINE 0.12% (ORAL KIT) 15 ML CUP MT SCH ×2 (09:49→19:09)
[2016-02-28] MEDS: SODIUM CHLOR 0.9% 1000 ML INJ 1,000 ML IV SCH ×2 (09:56→19:10)
[2016-02-28] MEDS: DOCUSATE SODIUM 100 MG/10 ML UDC G-TUBE SCH ×3 (10:45→21:45)
[2016-02-28] MEDS ORDERED: DIATRIZOATE MEGLUM/DIATRIZOATE SOD 9 ML CUP PO ONE (11:00)
[2016-02-28 11:01] LABS: TRANSFERRIN IRON PROFILE 103 MG/DL (200-360)
[2016-02-28] MEDS: LINEZOLID 600 MG PREMIX 300 ML IV SCH ×2 (11:03→21:48)
[2016-02-28 11:04] LABS: FERRITIN 588 NG/ML (8-252)
--- NOTE | 2016-02-28 13:25 | HHI.IDPN ---
Note Infectious Disease Note Patient remains on the vent. Continues to do CPAP trials. Awakens to voice. On Levophed. Has coughing spells. Afebrile. CXR showed air under the diaphragm. D/W RN. This is a 56-year-old white female who was brought to the emergency department from a [facility] facility. The patient reportedly was in respiratory distress and had decreased alertness at the [facility] facility. The patient was recently in the hospital in January 2016. She was treated with antibiotics for MRSA pneumonia. She was also treated recently for a UTI with ESBL. She received Macrobid for seven days. After that she was put on Levaquin for presumed stomach infection. She was due to continue antibiotics until 01/30 with the Levaquin. Chest x-ray was obtained and it shows left lower lobe pneumonia. PAST MEDICAL HISTORY 1. COPD. 2. Anxiety. 3. Depression. 4. Gastroesophageal reflux disease. 5. Diverticulitis. 6. Kidney stones. 7. Herniated disc. 8. Sleep apnea. 9. Gastric bypass. 10. Colostomy. 11. Chronic back pain. 12. MRSA pneumonia. ALLERGIES PENICILLIN. Current Medications Medications (Trade) Dose Ordered Sig/Elliot Route PRN Reason Start Time Stop Time Status Last Admin Dose Admin Fentanyl Citrate 250 ml @ 0 mls/hr TITRATE IV 02/22/16 21:00 02/27/16 13:30 Norepinephrine Bitartrate (Levophed-Dextrose Drip) 250 ml @ 0 mls/hr TITRATE IV 02/22/16 23:00 02/28/16 07:37 Terbutaline Sulfate 1 mg 1 mg UNSCH PRN SQ For Extravasation 02/22/16 23:00 Sodium Chloride (NS 1000 ml Inj) 1,000 ml @ 84 mls/hr [id number] IV 02/22/16 22:45 02/28/16 09:56 IV Flush (NS Flush) 2 ml UNSCH PRN IV FLUSH FLUSH AFTER USING IV ACCESS 02/22/16 22:45 IV Flush (NS Flush) 2 ml BID IV FLUSH 02/23/16 09:00 02/28/16 09:39 Acetaminophen (Tylenol) 650 mg Q6H PRN PO PAIN 1-10 AND/OR FEVER >101F 02/22/16 22:45 02/23/16 12:36 Pantoprazole Sodium (Protonix Inj) 40 mg DAILY IV 02/23/16 09:00 02/28/16 09:39 Ondansetron HCl (Zofran Inj) 4 mg Q6H PRN IV NAUSEA OR VOMITING 02/22/16 22:45 Docusate Sodium (Colace Liq) 100 mg Q12H G-TUBE 02/22/16 22:45 02/27/16 20:32 Bisacodyl (Dulcolax Supp) 10 mg DAILY PRN RECTAL CONSTIPATION 02/22/16 22:45 Magnesium Hydroxide (Milk Of Magnesia Liq) 30 ml Q12H PRN PO CONSTIPATION 02/22/16 22:45 Sennosides (Senokot) 17.2 mg Q12H PRN PO CONSTIPATION 02/22/16 22:45 Heparin Sodium (Porcine) (Heparin Inj) 5,000 units Q12H SQ 02/22/16 22:45 02/28/16 09:40 Miscellaneous Information 1 [id number] XX 02/22/16 22:45 Chlorhexidine Gluconate (Chlorhexidine 2% Cloth) Taper DAILY@04 TOP 02/23/16 04:00 02/18/17 03:59 02/27/16 21:30 Chlorhexidine Gluconate 3 pack 3 pack UNSCH PRN TOP HYGIENIC CARE 02/22/16 22:45 Propofol 100 ml @ 0 mls/hr TITRATE IV 02/22/16 22:45 02/28/16 11:26 Potassium Chloride 100 ml @ 50 mls/hr Q2H PRN IV For Potassium 2.8 - 3.2 mEq/L 02/22/16 22:45 02/27/16 08:46 Potassium Chloride (KCl 20 Meq Premix Inj) 100 ml @ 50 mls/hr Q2H PRN IV For Potassium 2.8 - 3.2 mEq/L 02/22/16 22:45 Potassium Chloride 40 meq 40 meq UNSCH PRN PO/TUBE For Potassium 3.3 - 3.5 mEq/L 02/22/16 22:45 02/25/16 11:57 Potassium Chloride 100 ml @ 25 mls/hr UNSCH PRN IV For Potassium 3.3 - 3.5 mEq/L 02/22/16 22:45 Potassium Chloride 100 ml @ 50 mls/hr Q2H PRN IV For Potassium 3.3 - 3.5 mEq/L 02/22/16 22:45 Magnesium Sulfate/ Sodium Chloride (Magnesium Sulfate Inj/NS Inj) 100 ml @ 50 mls/hr UNSCH PRN IV For Magnesium 0.9 - 1.1 mg/dL 02/22/16 22:45 Magnesium Oxide 800 mg 800 mg UNSCH PRN PO For Magnesium 1.2 - 1.6 mg/dL 02/22/16 22:45 Magnesium Sulfate/ Sodium Chloride (Magnesium Sulfate Inj/NS Inj) 100 ml @ 50 mls/hr UNSCH PRN IV For Magnesium 1.2 - 1.6 mg/dL 02/22/16 22:45 Potassium Phosphate 2000 mg 2,000 mg Q4H PRN PO For Phosphorus < 2.5 mg/dL 02/22/16 22:45 Sodium Phosphate/ Sodium Chloride (Sodium Phosphate Inj/NS 250 ml Inj) 250 ml @ 42 mls/hr UNSCH PRN IV For Phosphorus < 2.5 mg/dL 02/22/16 22:45 02/26/16 08:32 Potassium Chloride (KCl 40 Meq/30 ml Liq) 40 meq UNSCH PRN PO/TUBE SEE LABEL COMMENTS 02/22/16 22:45 Potassium Phosphate 2000 mg 2,000 mg UNSCH PRN PO/TUBE SEE LABEL COMMENTS 02/22/16 22:45 Potassium Phosphate/Sodium Chloride (Potassium Phosphate Inj/NS 250 ml Inj) 260 ml @ 42 mls/hr UNSCH PRN IV SEE LABEL COMMENTS 02/22/16 22:45 Chlorhexidine Gluconate (Peridex 0.12% Liq) 15 ml BID@08,20 MT 02/23/16 08:00 02/28/16 09:49 Dextrose (D50w (Vial) Inj) 25 ml UNSCH PRN IV PUSH HYPOGLYCEMIA-SEE COMMENTS 02/22/16 22:45 Glucagon 1 mg 1 mg UNSCH PRN OTHER HYPOGLYCEMIA-SEE COMMENTS 02/22/16 22:45 Linezolid 300 ml @ 300 mls/hr Q12H IV 02/23/16 12:00 02/28/16 11:03 Imipenem/ Cilastatin Sodium/ Sodium Chloride (Primaxin Inj/NS Inj) 100 ml @ 200 mls/hr Q8H IV 02/23/16 13:00 02/28/16 03:22 Midazolam HCl (Versed Inj) 2 mg Q2H PRN IV PUSH ANXIETY AND/OR AGITATION 02/26/16 09:30 02/26/16 08:50 Alprazolam (Xanax) 0.5 mg Q4H PRN PO ANXIETY 02/26/16 19:00 Gabapentin 300 mg 300 mg TID TUBE 02/27/16 09:00 02/28/16 09:38 Dexmedetomidine HCl (Precedex Inj) 50 ml @ 0 mls/hr TITRATE IV 02/28/16 09:00 02/28/16 09:38 SOCIAL HISTORY No tobacco, alcohol or illicit drugs. FAMILY HISTORY Unable to obtain. REVIEW OF SYSTEMS Unable to obtain. OBJECTIVE: Vital Signs Date Time Temp Pulse Resp B/P Pulse Ox O2 Delivery O2 Flow Rate FiO2 02/28/16 10:00 109 02/28/16 08:01 40 02/28/16 08:00 109 02/28/16 08:00 98.2 93 16 102/54 98 02/28/16 08:00 40 02/28/16 07:54 96 40 02/28/16 06:00 74 02/28/16 04:06 98 40 02/28/16 04:00 40 02/28/16 04:00 98.3 119 20 118/57 95 02/28/16 04:00 74 02/28/16 02:00 74 02/28/16 01:08 96 40 02/28/16 00:00 74 02/28/16 00:00 98.3 86 20 94/52 95 02/28/16 00:00 40 02/27/16 23:05 95 40 02/27/16 22:00 74 02/27/16 20:07 96 40 02/27/16 20:00 74 02/27/16 20:00 40 02/27/16 20:00 98.3 86 20 97/55 95 02/27/16 18:00 74 02/27/16 16:00 98.2 77 20 91/52 95 02/27/16 16:00 40 02/27/16 16:00 74 02/27/16 15:41 97 40 02/27/16 14:00 74 02/27/16 13:58 95 40 02/27/16 02/27/16 02/28/16 15:00 23:00 07:00 Intake Total 1757 ml 1950 ml 1870 ml Output Total 950 ml 1025 ml 2025 ml Balance 807 ml 925 ml -155 ml Intake IV Total 1133 ml 1225 ml 1245 ml Tube Feeding 424 ml 525 ml 425 ml Other 200 ml 200 ml 200 ml Output Urine Total 500 ml 750 ml 775 ml Stool Total 450 ml 275 ml 1250 ml Laboratory Tests Test 02/27/16 02/28/16 02:00 02:39 White Blood Count 14.6 TH/MM3 10.4 TH/MM3 Red Blood Count 3.83 MIL/MM3 3.88 MIL/MM3 Hemoglobin 9.9 GM/DL 10.1 GM/DL Hematocrit 32.9 % 33.1 % Mean Corpuscular Volume 86.1 FL 85.2 FL Mean Corpuscular Hemoglobin 25.8 PG 26.0 PG Mean Corpuscular Hemoglobin 30.0 % 30.5 % Concent Red Cell Distribution Width 18.0 % 17.6 % Platelet Count 212 TH/MM3 206 TH/MM3 Mean Platelet Volume 11.0 FL 9.8 FL Laboratory Tests Test 02/26/16 02/27/16 02/27/16 02/28/16 20:00 02:00 18:00 02:39 Potassium Level 3.5 MEQ/L 3.2 MEQ/L 3.9 MEQ/L 3.8 MEQ/L Phosphorus Level 2.9 MG/DL 3.1 MG/DL Sodium Level 144 MEQ/L 145 MEQ/L Chloride Level 106 MEQ/L 108 MEQ/L Carbon Dioxide Level 30.2 MEQ/L 31.2 MEQ/L Anion Gap 8 MEQ/L 6 MEQ/L Blood Urea Nitrogen 12 MG/DL 11 MG/DL Creatinine 0.49 MG/DL 0.38 MG/DL Estimat Glomerular Filtration 130 ML/MIN 175 ML/MIN Rate Random Glucose 125 MG/DL 101 MG/DL Calcium Level 8.1 MG/DL 8.5 MG/DL Magnesium Level 1.8 MG/DL Iron Level 32 MCG/DL Total Iron Binding Capacity 144 MCG/DL Percent Iron Saturation 22.2 % Transferrin 103 MG/DL Ferritin 588 NG/ML Microbiology Date/Time Procedure Status Source Growth 02/25/16 12:48 Gram Stain - Final Complete Sputum Endotracheal 02/25/16 12:48 Sputum Culture - Final Complete S. Aureus Mrsa IMAGING: Chest X-Ray 02/28/16 0800 Signed Impressions: Service Date/Time: February 08:12 - CONCLUSION: New free air under the left hemidiaphragm. Lines and tubes are stable.. Ivania Ya MD Chest X-Ray 02/26/16 0000 Signed Impressions: Service Date/Time: Friday, February 26, 2016 09:00 - CONCLUSION: 1. Bibasilar atelectasis and/or infiltrates. 2. Small left pleural effusion. 3. Multiple tubes and lines are in good position. Shankar Graves MD Chest CT 02/23/16 0000 Signed Impressions: Service Date/Time: Tuesday, February 23, 2016 16:35 - CONCLUSION: Bilateral lower lobe consolidated infiltrates or prominent left than the right. ET tube above the yaritza and nasogastric tube passing into the stomach Duncan Friedman MD Abdomen/Pelvis CT 02/23/16 0000 Signed Impressions: Service Date/Time: Tuesday, February 23, 2016 16:35 - CONCLUSION: No acute intra-abdominal process. Colostomy distal left descending colon. Prior cholecystectomy with clips in place . Solitary punctate bilateral renal nonobstructing calyceal stone Duncan Friedman MD PHYSICAL EXAMINATION GENERAL: On the ventilator. Awakens to voice. Follows commands. HEENT: No icterus. No conjunctival erythema. Oropharynx intubated. Buccal mucosa is moist. NECK: Supple without adenopathy or swelling. LUNGS: Breath sounds decreased. HEART: Regular S1, S2. No audible murmurs. ABDOMEN: Obese. A surgical midline scar appears intact. Nontender. Decreased bowel sounds. Left-sided colostomy appears functioning. GENITOURINARY: No visible abnormality. EXTREMITIES: No clubbing or cyanosis or edema. NEUROLOGIC: Unable to fully assess. Becomes agitated. SKIN: No rash. warm and most. IMPRESSION 1. Sepsis with shock. Still requiring pressors. 2. Urinary tract infection. ESBL Klebsiella, Proteus. 3. Pneumonia. MRSA. 4. Acute respiratory failure. Vent dependent. 5. Acute renal failure. improving. 6. Leukocytosis. Secondary to sepsis. WBC improving. RECOMMENDATIONS 1. Continue linezolid. 2. Continue imipenem. 3. Monitor white blood cell count. 4. Follow clinical status. 5. Monitor Platelet count.. Manny Mcwilliams MD Feb 28, 2016 13:25
[2016-02-28] MEDS ORDERED: IOHEXOL 350 MG/ML 10 ML VIAL (for RAD DIAG) IV ONE (14:41)
--- NOTE | 2016-02-28 15:16 | RADRPT ---
EXAM DATE/TIME: 02/28/2016 14:07 [facility] COMPARISON: CT ABDOMEN & PELVIS W/O CONTRAST, February 23, 2016, 16:35. CHEST SINGLE AP, February 28, 2016, 8:12. INDICATIONS : Evaluate for perforation. IV CONTRAST: 96 cc Omnipaque 350 (iohexol) IV ORAL CONTRAST: Prescribed oral contrast ingested. RADIATION DOSE: 31 CTDIvol (mGy) MEDICAL HISTORY : Cardiovascular disease. Chronic obstructive pulmonary disease. Diverticulitis. SURGICAL HISTORY : Colostomy. Gastric bypass. ENCOUNTER: Initial ACUITY: 1 day PAIN SCALE: Non-responsive LOCATION: Abdomen TECHNIQUE: Volumetric scanning of the abdomen and pelvis was performed. Using automated exposure control and ad justment of the mA and/or kV according to patient size, radiation dose was kept as low as reasonably achievable to obtain optimal diagnostic quality images. FINDINGS: LOWER LUNGS: There are small bilateral pleural effusions with associated compressive atelectasis. LIVER: Liver density is suggestive of steatosis. There is focal fat adjacent to the falciform ligament. Sherry ent is post cholecystectomy with clips in the gallbladder fossa. There is no dilation of the biliary tree. SPLEEN: Normal size without lesion. PANCREAS: Within normal limits. KIDNEYS: Normal in size and shape. There is no mass or hydronephrosis. There is a 3 mm nonobstructing stone i n the mid collecting system bilaterally. ADRENAL GLANDS: Within normal limits. VASCULAR: There is no aortic aneurysm. There is mild atherosclerotic disease. BOWEL/MESENTERY: Patient is post gastric bypass surgery. The nasogastric tube extends into the jejunal Marcie limb near the anastomosis. Excluded stomach contains a small amount of air and fluid. Small bowel demonstrates no acute finding. There is mild wall thickening of the ascending, transverse, and descending colon wi th areas of minimal pericolonic inflammatory change. A left lower quadrant colostomy is present. Ther e is a Fregoso's pouch in the pelvis that demonstrates no abnormality. A small volume of free fluid i s present in the pelvis but there is no free intraperitoneal air. ABDOMINAL WALL: There is a left lower quadrant colostomy. Mild subcutaneous edema is present bilaterally. RETROPERITONEUM: There is no lymphadenopathy. BLADDER: Ocampo catheter is present. There is no wall thickening. REPRODUCTIVE: Within normal limits. INGUINAL: There is no lymphadenopathy or hernia. MUSCULOSKELETAL: No acute osseous abnormality is seen. CONCLUSION: 1. There is no free intraperitoneal air. The chest x-ray finding likely was projectional. 2. Mild diffuse circumferential wall thickening and mild surrounding inflammation of the entire colon to the colostomy. Although nonspecific this could represent a colitis such as C. difficile colitis. There is trace free fluid in the pelvis. 3. Small bilateral pleural effusions with associated compressive atelectasis. Hussein Ortiz MD on February 28, 2016 at 15:07 Board Certified Radiologist. This report was verified electronically.
[2016-02-28 18:13] LABS: BLOOD GAS BASE EXCESS 1.7 mmol/L (-2-2); BLOOD GAS CARBOXYHEMOGLOBIN 1.2 % (0-4); BLOOD GAS HCO3 28 mmol/L (22-26); BLOOD GAS METHEMOGLOBIN 0.9 % (0-2); BLOOD GAS O2 HGB SATURATION 93 % (90-100); BLOOD GAS PCO2 64 mmHg (38-42); BLOOD GAS PO2 79 mmHg (61-120); BLOOD GAS TOTAL HGB 10.7 G/DL (12.0-16.0); TEMP CORR TO 98.6
[2016-02-28 18:14] LABS: CRITICAL VALUE YES; DRAW SITE RT RADIAL; FIO2 50 %; NUMBER OF ARTERIAL PUNCTURES 2; OXYGEN DEVICE VENTILATOR; STAT NO; ULNAR PULSE PRESENT; VENT SETTINGS PRVC/AC 450/16/
[2016-02-28] MEDS: fentaNYL DRIP 250 ML IV SCH (19:23)
[2016-02-28] MEDS: CHLORHEXIDINE GLUCONATE 2 % 1 PACK (2 CLOTHS) TOP SCH (21:52)
[2016-02-29] VITALS (17 sets, daily range): BP systolic 88–111; BP diastolic 48–56; PULSE 65–114; RESP 18–22; TEMP 98.1–98.6; O2SAT 92–98
[2016-02-29] MEDS: PROPOFOL 1000 MG/100 ML INJ 100 ML IV SCH ×6 (01:45→23:07)
[2016-02-29] MEDS: NOREPINEPHRINE-DEXTROSE DRIP 250 ML IV SCH ×5 (01:46→23:20)
[2016-02-29] MEDS: IMIPENEM/CILASTATIN INJ 500 MG in SODIUM CHLORIDE 0.9% INJ 100 ML IV SCH ×3 (02:50→19:24)
[2016-02-29] MEDS: RESP: ALBUTEROL 2.5 MG/IPRATROPIUM 0.5 MG NEB (SCH) NEB ×4 (03:54→20:30)
[2016-02-29] MEDS: fentaNYL DRIP 250 ML IV SCH ×2 (04:03→19:26)
[2016-02-29] MEDS: INSULIN NovoLIN REGULAR SUPPLEMENTAL SCALE SQ SCH ×4 (05:01→19:24)
[2016-02-29 06:16] LABS: HEMATOCRIT 35.6 % (35.0-46.0); MEAN CELL VOLUME 85.2 FL (80.0-100.0); MEAN CORPUSCULAR HEMOGLOBIN 25.8 PG (27.0-34.0); MEAN CORPUSCULAR HGB CONC 30.3 % (32.0-36.0); PLATELET COUNT 207 TH/MM3 (150-450); RED BLOOD COUNT 4.17 MIL/MM3 (4.00-5.30); RED CELL DISTRIBUTION WIDTH 17.7 % (11.6-17.2); REVIEW FLAG FINAL; WHITE BLOOD COUNT 8.5 TH/MM3 (4.0-11.0)
[2016-02-29 06:36] LABS: BICARBONATE 30.4 MEQ/L (21.0-32.0); POTASSIUM 3.4 MEQ/L (3.5-5.1)
[2016-02-29] MEDS: ALPRAZolam 0.5 MG TAB PO PRN (08:12)
[2016-02-29] MEDS: GABAPENTIN 250 MG/5 ML UDC TUBE SCH ×3 (08:12→17:30)
[2016-02-29] MEDS: POTASSIUM CHLOR 40 MEQ PREMIX 100 ML IV PRN (08:13)
[2016-02-29] MEDS: SODIUM CHLORIDE 0.9% FLUSH 5 ML FLUSH IV FLUSH SCH ×2 (08:13→19:18)
[2016-02-29] MEDS: PANTOPRAZOLE SODIUM 40 MG VIAL IV SCH ×2 (08:13→19:24)
[2016-02-29] MEDS: CHLORHEXIDINE 0.12% (ORAL KIT) 15 ML CUP MT SCH ×2 (09:00→19:04)
--- NOTE | 2016-02-29 09:26 | MB ---
cc: MARCO A GIBSON DATE OF CONSULTATION: 02/28/2016 Time; 1300. REQUESTING PHYSICIAN: Dr. Conklin, Property Controller REASON FOR CONSULTATION Possible free air under diaphragm and sepsis. HISTORY OF PRESENT ILLNESS The patient is 56-year-old female with a history of the super morbidly obese patient and respiratory failure admitted to the medical intensive care unit. The patient has history of previous colostomy placement remotely and has subsequently developed recurrent respiratory failure status post intubation. The patient did undergo endotracheal intubation and a follow-up chest x-ray to confirm placement of endotracheal tube, revealed what appeared to be free air under diaphragm. The patient having of unreliable abdominal exam, due to her morbid obesity and this was a concerning for possible perforation versus a respiratory tract air. The general surgery was consulted. CT scan was ordered. The patient underwent CT scan of the abdomen, pelvis on 02/28/2016 which revealed no acute intra-abdominal surgical process. There was some thickening of the colon noted. We are seeing this patient today sedated, the history is obtained from the records as she is unable to provide a history. PAST MEDICAL HISTORY: Obesity. Anxiety. Anemia. Depression. Chronic obstructive pulmonary disease. History of respiratory failure. Diverticulitis. PAST SURGICAL HISTORY: Gastric bypass and colostomy for diverticulitis. ALLERGIES PENICILLIN MEDICATIONS: Gabapentin Xanax Imipenem Zyvox Pantoprazole Insulin SOCIAL HISTORY The patient denies alcohol, tobacco or drug use per the record. FAMILY HISTORY: Noncontributory. PHYSICAL EXAMINATION: VITAL SIGNS: Heart rate is in the 1-teens. Blood pressure 190 systolic, o2 saturation 98% on the ventilator. IN GENERAL: The patient is a super obese, acutely chronically ill patient on her medical Intensive Care Unit bed. The patient currently is being examined in the CT scan. The patient follows commands. LUNGS: Breath sounds are decreased bilaterally. Nonlabored breathing pattern. HEART: Tachycardic, no murmurs. ABDOMEN: Obese, soft to palpation with no rebound or guarding. Midline scar well healed with no hernia, a colostomy in place with viable mucosa. EXTREMITIES: Acute and chronic edema x4 extremities. ASSESSMENT/PLAN The patient is 56-year-old female with respiratory failure and sepsis and possible free air in the abdomen. FOLLOWUP CT scan does show no free air in the abdomen but does show mild colitis. RECOMMENDATIONS No surgical intervention at this time. Recommended evaluation for possible C. Difficile colitis. Thank you very much for this consultation and we will sign off. MD ZACHERY Flowers/keith /8:37 AM /9:13 AM
--- NOTE | 2016-02-29 09:34 | HHI.CCPN ---
Subjective Remarks/Hospital Course Hospital Course: Patient is a 56 year old female who presented to ED from a custodial respiratory distress. Patient was noted to have decreased alertness at the custodial. As per nursing, patient had a nonproductive cough with diminished lung sounds to her lungs. Patient was on continuous oxygen at 2 L, reports that her pulse ox was 84%. Patient was hypoxic when [facility] arrived on scene, patient was placed on BiPAP and transported to the ED. Upon arrival to the ED the patient had acute hypoxic respiratory failure and was intubated. The patient was noted to be hypotensive, central line was placed vasopressor support was initiated. The patient was recently discharged and was currently on antibiotics for ESBL, and a UTI . Labs were obtained and WBC count was noted to be elevated. Critical care medicine was consulted for management and treatment. Subjective: 02/23: pressor requirement starting to stabilize. lactate cleared. uop adequate. awake and following commands. shock persists. renal function improving. urine with GNRs. 02/24: Tmax 99.5. The patient continues on vasopressor support. CPAP trials were attempted yesterday and the patient failed after 30 minutes. 02/25: Levophed discontinued last night, patient continues on fentanyl 100 mcgs for ventilator synchrony. CPAP trials lasting approximately 1 hour today. UA revealed ESBL, patient continues on antibiotics per ID. 02/26:Afebrile. No acute issues overnight. Failed CPAP trials. Tubefeeds started currently at goal. Patient continues to be anxious, Xanax PRN resumed(home medication). 02/28: still failing CPAP trials. significantly agitated on sedation holidays, and this contributes to her respiratory failure. clinically out of shock as wbc improving and afebrile, but significant pressor requirement remains. CT abd/ pelvis yesterday without evidence of free air. Objective Vital Signs Date Time Temp Pulse Resp B/P Pulse Ox O2 Delivery O2 Flow Rate FiO2 02/29/16 08:06 95 50 02/29/16 06:00 109 02/29/16 04:00 98.1 20 111/56 Intake and Output 02/28/16 02/28/16 02/29/16 08:00 16:00 00:00 Intake Total 1870 ml 1650 ml 1800 ml Output Total 2025 ml 800 ml 975 ml Balance -155 ml 850 ml 825 ml Result Diagram: 02/29/16 0438 02/29/16 0438 Other Results Laboratory Tests Test 02/28/16 18:05 Blood Gas Puncture Site RT RADIAL Blood Gas Patient Temperature 98.6 Blood Gas HCO3 28 mmol/L (22-26) Blood Gas Base Excess 1.7 mmol/L (-2-2) Blood Gas Oxygen Saturation 93 % (90-100) Arterial Blood pH 7.27 (7.380-7.420) Arterial Blood Partial 64 mmHg (38-42) Pressure CO2 Arterial Blood Partial 79 mmHg Pressure O2 (61-120) Arterial Blood Oxygen Content 14.0 Vol % (12.0-20.0) Arterial Blood 1.2 % (0-4) Carboxyhemoglobin Arterial Blood Methemoglobin 0.9 % (0-2) Blood Gas Hemoglobin 10.7 G/DL (12.0-16.0) Oxygen Delivery Device VENTILATOR Blood Gas Ventilator Setting PRVC/AC 450/16/ Blood Gas Inspired Oxygen 50 % Imaging Last 24 hours Impressions Chest X-Ray 02/26/16 0000 Signed Impressions: Service Date/Time: Friday, February 26, 2016 09:00 - CONCLUSION: 1. Bibasilar atelectasis and/or infiltrates. 2. Small left pleural effusion. 3. Multiple tubes and lines are in good position. Shankar Graves MD Last 24 hours Impressions Chest X-Ray 02/22/16 1900 Signed Impressions: Service Date/Time: Monday, February 22, 2016 19:45 - CONCLUSION: 1. Basilar airspace disease, stable to slightly improved from January 24, 2016. Cardiomegaly. Braden Gomez MD Objective Remarks GENERAL: A super morbidly obese female lying in bed intubated, extremely anxious. SKIN: Warm and dry. HEAD: Atraumatic. Normocephalic. EYES: Pupils equal and round. No scleral icterus. No injection or drainage. ENT: No nasal bleeding or discharge. Mucous membranes pink and moist. NECK: Trachea midline. Unable to assess JVD. Orotracheally intubation. CARDIOVASCULAR: Normal rate, regular rhythm. RESPIRATORY: Mechanical ventilation Clear to auscultation. Breath sounds equal bilaterally. GASTROINTESTINAL: Abdomen obese soft, non-tender, nondistended. Well-healed midline scar No guarding. Colostomy left upper quadrant MUSCULOSKELETAL: Extremities without clubbing, cyanosis, or edema. No obvious deformities. NEUROLOGICAL: RASS -1 or +1 (intermittently agitated). follows commands GCS 11 T Fentanyl and propofol infusion. Date of Insertion: Feb 23, 2016 Date of Insertion: Feb 23, 2016 Side: Right Location: Internal, Jugular A/P Assessment and Plan This is a 56-year-old female with altered mental status with acute hypoxic respiratory failure is likely secondary to septic shock. The patient has had a previous admission approximately 12 weeks ago. Presents with hypotension requiring vasopressor support and elevated WBC count. Patient is critically ill and in septic shock. Her pressor requirement remains. she remains significantly critically ill. she is off pathway. her delirium and tachypnea are significant and without mechanical ventilation and support, she would . Her hypotension is concerning, and I will check serum cortisol level to rule out adrenal insufficiency as a cause. I will not empirically treat with steroids , as her chronic critical illness would only risk worsening with the side- effects of glucocorticoids. we will work today towards controlling the agitation and an effective sedation plan. will continue to wean pressors as tolerated. Neurologic: Altered mental status Toxic /metabolic encephalopathy Anxiety -RASS goal -1. -IV sedation fentanyl infusion for ventilator synchrony. GCS 11T -Sedation holiday per ICU protocol - Neurontin,and Xanax patient's home med, continued - will start Seroquel 100mg per tube q8hr - will add haldol 5mg iv q4h prn for agitation - wean fent/prop as tolerated. Respiratory: Obstructive sleep apnea Acute hypoxic respiratory failure -Maintain O2 sat greater than 92%, wean FiO2 -Maintain tidal volume 6-8 cc/per ideal body weight -does not meet criteria for SBT today because of severe agitation. I think she would derecruit, and we would lose valuable forward progress. will leave a PEEP of 10 for recruitment and will try SBT again tomorrow. Cardiovascular: Hypotension secondary to septic shock History of hypertension -norepinephine requirement persists. at 10mcg/min today. -maintain MAP greater than 65 mmHg. -f/u random cortisol level Renal: NADIR-resolved Renal insufficiency-resolved -Maintain Ocampo -Creatinine baseline -- Strict I/Os FEN/GI: -Continue Tube feeds, Vital High Protein currently at 65cc/hour -SL ivf. lasix 40mg iv x 1 now. -Bowel regimen -Colostomy-adequate output Heme/ID: Multilobar pneumonia (01/30 discharge hospital) UTI- ESBL Sputum- MRSA Anemia -ID on board-Dr. Mcwilliams continue Linezolid, imipenem, follow their recommendations Endocrine: Monitor blood glucose levels per ICU protocol -- SSI Prophylaxis: GI Prophylaxis Protonix DVT Prophylaxis -- SCDs Heparin Lines: Right IJ central line Dr. Bundy 02/22/16, peripheral IVs 2 left radial art line 02/22-discontinued 02/23 Dispo: remain in the ICU. This patient remains critically ill with one or more organ systems which are or may become a threat to life. I have spent in excess of 38 minutes discontinuously in the care and management of this patient. This time is exclusive of procedures, and includes, but is not limited to, evaluation of the patient, review of the medical record, discussions with family, consultants, nursing staff, or respiratory therapy, and documentation in the medical record. Jose Miguel Gross MD Feb 29, 2016 09:34
[2016-02-29] MEDS ORDERED: FUROSEMIDE 40 MG/4 ML VIAL IV PUSH ONE (10:00)
[2016-02-29] MEDS: QUEtiapine FUMARATE 100 MG TAB PO SCH ×4 (10:00→22:13)
[2016-02-29] MEDS: LINEZOLID 600 MG PREMIX 300 ML IV SCH ×2 (12:47→22:12)
[2016-02-29] MEDS: HEPARIN SODIUM - SQ 10,000 UNITS/ML VIAL SQ SCH ×2 (12:48→22:12)
--- NOTE | 2016-02-29 13:13 | HHI.IDPN ---
Note Infectious Disease Note Patient remains on the vent. Continues to do CPAP trials. Awakens and alert on awakening. On Levophed 10 mcg. No distress. Afebrile. D/W RN. This is a 56-year-old white female who was brought to the emergency department from a fdc facility. The patient reportedly was in respiratory distress and had decreased alertness at the fdc facility. The patient was recently in the hospital in January 2016. She was treated with antibiotics for MRSA pneumonia. She was also treated recently for a UTI with ESBL. She received Macrobid for seven days. After that she was put on Levaquin for presumed stomach infection. She was due to continue antibiotics until 01/30 with the Levaquin. Chest x-ray was obtained and it shows left lower lobe pneumonia. PAST MEDICAL HISTORY 1. COPD. 2. Anxiety. 3. Depression. 4. Gastroesophageal reflux disease. 5. Diverticulitis. 6. Kidney stones. 7. Herniated disc. 8. Sleep apnea. 9. Gastric bypass. 10. Colostomy. 11. Chronic back pain. 12. MRSA pneumonia. ALLERGIES PENICILLIN. Current Medications Medications (Trade) Dose Ordered Sig/Elliot Route PRN Reason Start Time Stop Time Status Last Admin Dose Admin Fentanyl Citrate 250 ml @ 0 mls/hr TITRATE IV 02/22/16 21:00 02/29/16 04:03 Norepinephrine Bitartrate (Levophed-Dextrose Drip) 250 ml @ 0 mls/hr TITRATE IV 02/22/16 23:00 02/29/16 09:00 Terbutaline Sulfate (Brethine Inj) 1 mg UNSCH PRN SQ For Extravasation 02/22/16 23:00 IV Flush (NS Flush) 2 ml UNSCH PRN IV FLUSH FLUSH AFTER USING IV ACCESS 02/22/16 22:45 IV Flush (NS Flush) 2 ml BID IV FLUSH 02/23/16 09:00 02/29/16 08:13 Acetaminophen (Tylenol) 650 mg Q6H PRN PO PAIN 1-10 AND/OR FEVER >101F 02/22/16 22:45 02/23/16 12:36 Pantoprazole Sodium (Protonix Inj) 40 mg DAILY IV 02/23/16 09:00 02/29/16 08:13 Ondansetron HCl (Zofran Inj) 4 mg Q6H PRN IV NAUSEA OR VOMITING 02/22/16 22:45 Docusate Sodium (Colace Liq) 100 mg Q12H G-TUBE 02/22/16 22:45 02/28/16 21:45 Bisacodyl (Dulcolax Supp) 10 mg DAILY PRN RECTAL CONSTIPATION 02/22/16 22:45 Magnesium Hydroxide (Milk Of Magnesia Liq) 30 ml Q12H PRN PO CONSTIPATION 02/22/16 22:45 Sennosides (Senokot) 17.2 mg Q12H PRN PO CONSTIPATION 02/22/16 22:45 Heparin Sodium (Porcine) (Heparin Inj) 5,000 units Q12H SQ 02/22/16 22:45 02/29/16 12:48 Miscellaneous Information 1 [id number] XX 02/22/16 22:45 Chlorhexidine Gluconate (Chlorhexidine 2% Cloth) Taper DAILY@04 TOP 02/23/16 04:00 02/18/17 03:59 02/28/16 21:52 Chlorhexidine Gluconate 3 pack 3 pack UNSCH PRN TOP HYGIENIC CARE 02/22/16 22:45 Propofol 100 ml @ 0 mls/hr TITRATE IV 02/22/16 22:45 02/29/16 09:00 Potassium Chloride 100 ml @ 50 mls/hr Q2H PRN IV For Potassium 2.8 - 3.2 mEq/L 02/22/16 22:45 02/29/16 08:13 Potassium Chloride (KCl 20 Meq Premix Inj) 100 ml @ 50 mls/hr Q2H PRN IV For Potassium 2.8 - 3.2 mEq/L 02/22/16 22:45 Potassium Chloride 40 meq 40 meq UNSCH PRN PO/TUBE For Potassium 3.3 - 3.5 mEq/L 02/22/16 22:45 02/25/16 11:57 Potassium Chloride 100 ml @ 25 mls/hr UNSCH PRN IV For Potassium 3.3 - 3.5 mEq/L 02/22/16 22:45 Potassium Chloride 100 ml @ 50 mls/hr Q2H PRN IV For Potassium 3.3 - 3.5 mEq/L 02/22/16 22:45 Magnesium Sulfate/ Sodium Chloride (Magnesium Sulfate Inj/NS Inj) 100 ml @ 50 mls/hr UNSCH PRN IV For Magnesium 0.9 - 1.1 mg/dL 02/22/16 22:45 Magnesium Oxide 800 mg 800 mg UNSCH PRN PO For Magnesium 1.2 - 1.6 mg/dL 02/22/16 22:45 Magnesium Sulfate/ Sodium Chloride (Magnesium Sulfate Inj/NS Inj) 100 ml @ 50 mls/hr UNSCH PRN IV For Magnesium 1.2 - 1.6 mg/dL 02/22/16 22:45 Potassium Phosphate 2000 mg 2,000 mg Q4H PRN PO For Phosphorus < 2.5 mg/dL 02/22/16 22:45 Sodium Phosphate/ Sodium Chloride (Sodium Phosphate Inj/NS 250 ml Inj) 250 ml @ 42 mls/hr UNSCH PRN IV For Phosphorus < 2.5 mg/dL 02/22/16 22:45 02/26/16 08:32 Potassium Chloride (KCl 40 Meq/30 ml Liq) 40 meq UNSCH PRN PO/TUBE SEE LABEL COMMENTS 02/22/16 22:45 Potassium Phosphate 2000 mg 2,000 mg UNSCH PRN PO/TUBE SEE LABEL COMMENTS 02/22/16 22:45 Potassium Phosphate/Sodium Chloride (Potassium Phosphate Inj/NS 250 ml Inj) 260 ml @ 42 mls/hr UNSCH PRN IV SEE LABEL COMMENTS 02/22/16 22:45 Chlorhexidine Gluconate (Peridex 0.12% Liq) 15 ml BID@08,20 MT 02/23/16 08:00 02/29/16 09:00 Dextrose (D50w (Vial) Inj) 25 ml UNSCH PRN IV PUSH HYPOGLYCEMIA-SEE COMMENTS 02/22/16 22:45 Glucagon 1 mg 1 mg UNSCH PRN OTHER HYPOGLYCEMIA-SEE COMMENTS 02/22/16 22:45 Linezolid 300 ml @ 300 mls/hr Q12H IV 02/23/16 12:00 02/29/16 12:47 Imipenem/ Cilastatin Sodium/ Sodium Chloride (Primaxin Inj/NS Inj) 100 ml @ 200 mls/hr Q8H IV 02/23/16 13:00 02/29/16 02:50 Alprazolam (Xanax) 0.5 mg Q4H PRN PO ANXIETY 02/26/16 19:00 02/29/16 08:12 Gabapentin (Neurontin Liq) 300 mg TID TUBE 02/27/16 09:00 02/29/16 12:47 Quetiapine Fumarate (SEROquel) 100 mg Q8HR PO 02/29/16 10:00 02/29/16 12:47 Haloperidol Lactate (Haldol Inj) 5 mg Q4H PRN IV PUSH agitation, delirium 02/29/16 09:15 SOCIAL HISTORY No tobacco, alcohol or illicit drugs. FAMILY HISTORY Unable to obtain. REVIEW OF SYSTEMS Unable to obtain. OBJECTIVE: Vital Signs Date Time Temp Pulse Resp B/P Pulse Ox O2 Delivery O2 Flow Rate FiO2 02/28/16 10:00 109 02/28/16 08:01 40 02/28/16 08:00 109 02/28/16 08:00 98.2 93 16 102/54 98 02/28/16 08:00 40 02/28/16 07:54 96 40 02/28/16 06:00 74 02/28/16 04:06 98 40 02/28/16 04:00 40 02/28/16 04:00 98.3 119 20 118/57 95 02/28/16 04:00 74 02/28/16 02:00 74 02/28/16 01:08 96 40 02/28/16 00:00 74 02/28/16 00:00 98.3 86 20 94/52 95 02/28/16 00:00 40 02/27/16 23:05 95 40 02/27/16 22:00 74 02/27/16 20:07 96 40 02/27/16 20:00 74 02/27/16 20:00 40 02/27/16 20:00 98.3 86 20 97/55 95 02/27/16 18:00 74 02/27/16 16:00 98.2 77 20 91/52 95 02/27/16 16:00 40 02/27/16 16:00 74 02/27/16 15:41 97 40 02/27/16 14:00 74 02/27/16 13:58 95 40 02/27/16 02/27/16 02/28/16 15:00 23:00 07:00 Intake Total 1757 ml 1950 ml 1870 ml Output Total 950 ml 1025 ml 2025 ml Balance 807 ml 925 ml -155 ml Intake IV Total 1133 ml 1225 ml 1245 ml Tube Feeding 424 ml 525 ml 425 ml Other 200 ml 200 ml 200 ml Output Urine Total 500 ml 750 ml 775 ml Stool Total 450 ml 275 ml 1250 ml Laboratory Tests Test 02/27/16 02/28/16 02:00 02:39 White Blood Count 14.6 TH/MM3 10.4 TH/MM3 Red Blood Count 3.83 MIL/MM3 3.88 MIL/MM3 Hemoglobin 9.9 GM/DL 10.1 GM/DL Hematocrit 32.9 % 33.1 % Mean Corpuscular Volume 86.1 FL 85.2 FL Mean Corpuscular Hemoglobin 25.8 PG 26.0 PG Mean Corpuscular Hemoglobin 30.0 % 30.5 % Concent Red Cell Distribution Width 18.0 % 17.6 % Platelet Count 212 TH/MM3 206 TH/MM3 Mean Platelet Volume 11.0 FL 9.8 FL Laboratory Tests Test 02/26/16 02/27/16 02/27/16 02/28/16 20:00 02:00 18:00 02:39 Potassium Level 3.5 MEQ/L 3.2 MEQ/L 3.9 MEQ/L 3.8 MEQ/L Phosphorus Level 2.9 MG/DL 3.1 MG/DL Sodium Level 144 MEQ/L 145 MEQ/L Chloride Level 106 MEQ/L 108 MEQ/L Carbon Dioxide Level 30.2 MEQ/L 31.2 MEQ/L Anion Gap 8 MEQ/L 6 MEQ/L Blood Urea Nitrogen 12 MG/DL 11 MG/DL Creatinine 0.49 MG/DL 0.38 MG/DL Estimat Glomerular Filtration 130 ML/MIN 175 ML/MIN Rate Random Glucose 125 MG/DL 101 MG/DL Calcium Level 8.1 MG/DL 8.5 MG/DL Magnesium Level 1.8 MG/DL Iron Level 32 MCG/DL Total Iron Binding Capacity 144 MCG/DL Percent Iron Saturation 22.2 % Transferrin 103 MG/DL Ferritin 588 NG/ML Microbiology Date/Time Procedure Status Source Growth 02/25/16 12:48 Gram Stain - Final Complete Sputum Endotracheal 02/25/16 12:48 Sputum Culture - Final Complete S. Aureus [facility]sa IMAGING: Chest X-Ray 02/28/16 0800 Signed Impressions: Service Date/Time: February 08:12 - CONCLUSION: New free air under the left hemidiaphragm. Lines and tubes are stable.. Ivania Ya MD Abdomen/Pelvis CT 02/28/16 0000 Signed Impressions: Service Date/Time: February 14:07 - CONCLUSION: 1. There is no free intraperitoneal air. The chest x-ray finding likely was projectional. 2. Mild diffuse circumferential wall thickening and mild surrounding inflammation of the entire colon to the colostomy. Although nonspecific this could represent a colitis such as C. difficile colitis. There is trace free fluid in the pelvis. 3. Small bilateral pleural effusions with associated compressive atelectasis. Hussein Ortiz MD Chest X-Ray 02/26/16 0000 Signed Impressions: Service Date/Time: Friday, February 26, 2016 09:00 - CONCLUSION: 1. Bibasilar atelectasis and/or infiltrates. 2. Small left pleural effusion. 3. Multiple tubes and lines are in good position. Shankar Graves MD Chest CT 02/23/16 0000 Signed Impressions: Service Date/Time: Tuesday, February 23, 2016 16:35 - CONCLUSION: Bilateral lower lobe consolidated infiltrates or prominent left than the right. ET tube above the yaritza and nasogastric tube passing into the stomach Duncan Friedman MD Abdomen/Pelvis CT 02/23/16 0000 Signed Impressions: Service Date/Time: Tuesday, February 23, 2016 16:35 - CONCLUSION: No acute intra-abdominal process. Colostomy distal left descending colon. Prior cholecystectomy with clips in place . Solitary punctate bilateral renal nonobstructing calyceal stone Duncan Friedman MD PHYSICAL EXAMINATION GENERAL: On the ventilator. Awakens to voice. Follows commands. HEENT: No icterus. No conjunctival erythema. Oropharynx intubated. Buccal mucosa is moist. NECK: Supple without adenopathy or swelling. LUNGS: Breath sounds decreased. HEART: Regular S1, S2. No audible murmurs. ABDOMEN: Obese. Nontender. Decreased bowel sounds. Left-sided colostomy appears functioning. EXTREMITIES: No clubbing or cyanosis or edema. NEUROLOGIC: Alert on the vent. SKIN: No rash. warm and most. IMPRESSION 1. Sepsis with shock. Still requiring pressors. 2. Urinary tract infection. ESBL Klebsiella, Proteus. 3. Pneumonia. MRSA. 4. Acute respiratory failure. Vent dependent. 5. Acute renal failure. improving. 6. Leukocytosis. Secondary to sepsis. WBC improving. RECOMMENDATIONS 1. Continue Linezolid. 2. Continue Imipenem. 3. Monitor white blood cell count. 4. Follow clinical status. 5. Monitor Platelet count.. Manny Mcwilliams MD Feb 29, 2016 13:13
[2016-02-29 13:44] LABS: BICARBONATE 30.1 MEQ/L (21.0-32.0); POTASSIUM 3.9 MEQ/L (3.5-5.1)
[2016-02-29] MEDS: CHLORHEXIDINE GLUCONATE 2 % 1 PACK (2 CLOTHS) TOP SCH (21:23)
[2016-02-29] MEDS: DOCUSATE SODIUM 100 MG/10 ML UDC G-TUBE SCH (22:13)
[2016-03-01] VITALS (20 sets, daily range): BP systolic 98–129; BP diastolic 54–88; PULSE 88–143; RESP 18–36; TEMP 98.5–99; O2SAT 89–99
[2016-03-01] MEDS: PROPOFOL 1000 MG/100 ML INJ 100 ML IV SCH ×5 (02:54→21:40)
[2016-03-01] MEDS: RESP: ALBUTEROL 2.5 MG/IPRATROPIUM 0.5 MG NEB (SCH) NEB ×4 (03:21→20:24)
[2016-03-01] MEDS: QUEtiapine FUMARATE 100 MG TAB PO SCH ×2 (04:21→21:40)
[2016-03-01] MEDS: IMIPENEM/CILASTATIN INJ 500 MG in SODIUM CHLORIDE 0.9% INJ 100 ML IV SCH ×3 (04:21→21:40)
[2016-03-01] MEDS: INSULIN NovoLIN REGULAR SUPPLEMENTAL SCALE SQ SCH ×4 (04:29→22:08)
[2016-03-01] MEDS: NOREPINEPHRINE-DEXTROSE DRIP 250 ML IV SCH ×3 (05:03→18:42)
[2016-03-01 08:13] LABS: BICARBONATE 29.8 MEQ/L (21.0-32.0); POTASSIUM 4.4 MEQ/L (3.5-5.1)
[2016-03-01] MEDS: GABAPENTIN 250 MG/5 ML UDC TUBE SCH ×3 (09:06→18:13)
[2016-03-01] MEDS: PANTOPRAZOLE SODIUM 40 MG VIAL IV SCH (09:06)
[2016-03-01] MEDS: SODIUM CHLORIDE 0.9% FLUSH 5 ML FLUSH IV FLUSH SCH ×2 (09:07→21:41)
[2016-03-01] MEDS: CHLORHEXIDINE 0.12% (ORAL KIT) 15 ML CUP MT SCH ×2 (09:09→21:49)
--- NOTE | 2016-03-01 10:25 | HHI.CCPN ---
Subjective Remarks/Hospital Course Hospital Course: Patient is a 56 year old female who [facility]. Patient was noted to have decreased alertness at the [facility]. As per nursing, patient had a nonproductive cough with diminished lung sounds to her lungs. Patient was on continuous oxygen at 2 L, reports that her pulse ox was 84%. Patient was hypoxic when [facility] arrived on scene, patient was placed on BiPAP and transported to the ED. Upon arrival to the ED the patient had acute hypoxic respiratory failure and was intubated. The patient was noted to be hypotensive, central line was placed vasopressor support was initiated. The patient was recently discharged and was currently on antibiotics for ESBL, and a UTI . Labs were obtained and WBC count was noted to be elevated. Critical care medicine was consulted for management and treatment. Subjective: 02/23: pressor requirement starting to stabilize. lactate cleared. uop adequate. awake and following commands. shock persists. renal function improving. urine with GNRs. 02/24: Tmax 99.5. The patient continues on vasopressor support. CPAP trials were attempted yesterday and the patient failed after 30 minutes. 02/25: Levophed discontinued last night, patient continues on fentanyl 100 mcgs for ventilator synchrony. CPAP trials lasting approximately 1 hour today. UA revealed ESBL, patient continues on antibiotics per ID. 02/26:Afebrile. No acute issues overnight. Failed CPAP trials. Tubefeeds started currently at goal. Patient continues to be anxious, Xanax PRN resumed(home medication). 02/28: still failing CPAP trials. significantly agitated on sedation holidays, and this contributes to her respiratory failure. clinically out of shock as wbc improving and afebrile, but significant pressor requirement remains. CT abd/ pelvis yesterday without evidence of free air. 03/01: failed CPAP yesterday for significant agitation. Seroquel and haldol started yesterday. random cortisol is 7, suggestive that this is inadequate response for her current critical illness, and she likely has a significant component of adrenal insufficiency. steroids ordered. Objective Vital Signs Date Time Temp Pulse Resp B/P Pulse Ox O2 Delivery O2 Flow Rate FiO2 03/01/16 07:49 94 50 03/01/16 06:00 114 03/01/16 04:00 98.7 18 105/54 Intake and Output 02/29/16 02/29/16 03/01/16 08:00 16:00 00:00 Intake Total 1750 ml 1838 ml 1650 ml Output Total 1075 ml 3800 ml 1100 ml Balance 675 ml -1962 ml 550 ml Result Diagram: 02/29/16 0438 03/01/16 0457 Imaging Last 24 hours Impressions Chest X-Ray 02/26/16 0000 Signed Impressions: Service Date/Time: Friday, February 26, 2016 09:00 - CONCLUSION: 1. Bibasilar atelectasis and/or infiltrates. 2. Small left pleural effusion. 3. Multiple tubes and lines are in good position. Shankar Graves MD Last 24 hours Impressions Chest X-Ray 02/22/16 1900 Signed Impressions: Service Date/Time: Monday, February 22, 2016 19:45 - CONCLUSION: 1. Basilar airspace disease, stable to slightly improved from January 24, 2016. Cardiomegaly. Braden Gomez MD Objective Remarks GENERAL: A super morbidly obese female lying in bed intubated, extremely anxious. SKIN: Warm and dry. HEAD: Atraumatic. Normocephalic. EYES: Pupils equal and round. No scleral icterus. No injection or drainage. ENT: No nasal bleeding or discharge. Mucous membranes pink and moist. NECK: Trachea midline. Unable to assess JVD. Orotracheally intubation. CARDIOVASCULAR: Normal rate, regular rhythm. RESPIRATORY: Mechanical ventilation Clear to auscultation. Breath sounds equal bilaterally. GASTROINTESTINAL: Abdomen obese soft, non-tender, nondistended. Well-healed midline scar No guarding. Colostomy left upper quadrant MUSCULOSKELETAL: Extremities without clubbing, cyanosis, or edema. No obvious deformities. NEUROLOGICAL: RASS -1 or +1 (intermittently agitated). follows commands GCS 11 T Fentanyl and propofol infusion. Date of Insertion: Feb 23, 2016 Date of Insertion: Feb 23, 2016 Side: Right Location: Internal, Jugular A/P Assessment and Plan This is a 56-year-old female with altered mental status with acute hypoxic respiratory failure is likely secondary to septic shock. The patient has had a previous admission approximately 12 weeks ago. Presents with hypotension requiring vasopressor support and elevated WBC count. Patient is critically ill and in septic shock. Her pressor requirement remains. she remains significantly critically ill. she is off pathway. her delirium and tachypnea are significant and without mechanical ventilation and support, she would . She likely has a significant component of adrenal insufficiency contributing to her shock. With the institution of Seroquel and Haldol yesterday, we will see if her agitation has improved. we will again wean sedation and try SBT again today, though her multiple comorbidities remain and she continues to be off pathway with multiple organ systems continuing to be a threat to life. she remains critically ill. Neurologic: Altered mental status Toxic /metabolic encephalopathy Anxiety Agitated Delirium -RASS goal 0. -IV sedation fentanyl infusion for ventilator synchrony. GCS 11T -Sedation holiday per ICU protocol - Neurontin,and Xanax patient's home med, continued - Seroquel 100mg per tube q8hr - haldol 5mg iv q4h prn for agitation - wean fent/prop as tolerated. - failed precedex earlier for hypotension and bradycardia. Respiratory: Obstructive sleep apnea Acute hypoxic respiratory failure -Maintain O2 sat greater than 92%, wean FiO2 -Maintain tidal volume 6-8 cc/per ideal body weight - will try SBT today if agitation has improved. we can wean PEEP today as tolerated. Cardiovascular: Hypotension secondary to septic shock History of hypertension Adrenal Insufficiency -norepinephine requirement persists. at 10mcg/min today. -maintain MAP greater than 65 mmHg. -02/28 random cortisol level 7. Inappropriate for her stressed state. - start hydrocortisone 50mg iv q6hr. will need slow taper for this, since she clearly has residual pressor requirement from inadequate circulating mineralocorticoids. Renal: NADIR-resolved Renal insufficiency-resolved -Maintain Ocampo -Creatinine baseline -- Strict I/Os FEN/GI: -Continue Tube feeds, Vital High Protein currently at 65cc/hour -SL ivf. - lasix 40mg iv x 1 again today. goal -500/1L negative. -Bowel regimen -Colostomy-adequate output Heme/ID: Multilobar pneumonia (01/30 discharge hospital) UTI- ESBL Sputum- MRSA Anemia -ID on board-Dr. Mcwilliams continue Linezolid, imipenem, follow their recommendations Endocrine: Hyperglycemia of Critical Illness Adrenal Insufficiency -- SSI, low scale, q6h -- hydrocortisone 50mg iv q6hr. will need slow taper. Prophylaxis: GI Prophylaxis Protonix DVT Prophylaxis -- SCDs Heparin Lines: Right IJ central line Dr. Bundy 02/22/16, peripheral IVs 2 left radial art line 02/22-discontinued 02/23 Dispo: remain in the ICU. This patient remains critically ill with one or more organ systems which are or may become a threat to life. I have spent in excess of 41 minutes discontinuously in the care and management of this patient. This time is exclusive of procedures, and includes, but is not limited to, evaluation of the patient, review of the medical record, discussions with family, consultants, nursing staff, or respiratory therapy, and documentation in the medical record. Jose Miguel Gross MD Mar 01, 2016 10:25
[2016-03-01] MEDS: DOCUSATE SODIUM 100 MG/10 ML UDC G-TUBE SCH ×2 (10:45→21:41)
[2016-03-01] MEDS: HEPARIN SODIUM - SQ 10,000 UNITS/ML VIAL SQ SCH ×2 (10:58→18:14)
[2016-03-01] MEDS: ALPRAZolam 0.5 MG TAB PO PRN (10:58)
[2016-03-01] MEDS: HYDROCORTISONE SOD SUCCINATE 100 MG VIAL IV PUSH SCH ×4 (10:58→22:09)
[2016-03-01] MEDS: LINEZOLID 600 MG PREMIX 300 ML IV SCH ×2 (10:59→22:09)
[2016-03-01] MEDS ORDERED: FUROSEMIDE 40 MG/4 ML VIAL IV PUSH ONE (11:00)
[2016-03-01 16:13] LABS: MEAN CELL VOLUME 83.9 FL (80.0-100.0); MEAN CORPUSCULAR HEMOGLOBIN 25.5 PG (27.0-34.0); MEAN CORPUSCULAR HGB CONC 30.4 % (32.0-36.0); PLATELET COUNT 211 TH/MM3 (150-450); RED BLOOD COUNT 4.17 MIL/MM3 (4.00-5.30); RED CELL DISTRIBUTION WIDTH 17.6 % (11.6-17.2); REVIEW FLAG FINAL; WHITE BLOOD COUNT 12.6 TH/MM3 (4.0-11.0)
[2016-03-01] MEDS: HALOPERIDOL LACTATE 5 MG/ML AMP IV PUSH PRN (21:41)
[2016-03-02] VITALS (19 sets, daily range): BP systolic 99–150; BP diastolic 50–68; PULSE 69–115; RESP 18–29; TEMP 98.4–99; O2SAT 92–100
[2016-03-02] MEDS: HEPARIN SODIUM - SQ 10,000 UNITS/ML VIAL SQ SCH ×3 (01:14→17:34)
[2016-03-02] MEDS: CHLORHEXIDINE GLUCONATE 2 % 1 PACK (2 CLOTHS) TOP SCH (01:14)
[2016-03-02] MEDS: RESP: ALBUTEROL 2.5 MG/IPRATROPIUM 0.5 MG NEB (SCH) NEB ×4 (03:05→20:05)
[2016-03-02] MEDS: NOREPINEPHRINE-DEXTROSE DRIP 250 ML IV SCH (03:56)
[2016-03-02] MEDS: HALOPERIDOL LACTATE 5 MG/ML AMP IV PUSH PRN ×3 (03:57→20:11)
[2016-03-02] MEDS: IMIPENEM/CILASTATIN INJ 500 MG in SODIUM CHLORIDE 0.9% INJ 100 ML IV SCH ×3 (04:06→21:23)
[2016-03-02] MEDS: HYDROCORTISONE SOD SUCCINATE 100 MG VIAL IV PUSH SCH ×3 (04:07→17:34)
[2016-03-02] MEDS: QUEtiapine FUMARATE 100 MG TAB PO SCH ×3 (04:07→21:24)
[2016-03-02] MEDS: INSULIN NovoLIN REGULAR SUPPLEMENTAL SCALE SQ SCH ×4 (06:13→21:24)
[2016-03-02] MEDS: fentaNYL DRIP 250 ML IV SCH ×2 (06:28→22:46)
[2016-03-02 06:32] LABS: HEMATOCRIT 32.3 % (35.0-46.0); MEAN CELL VOLUME 82.9 FL (80.0-100.0); MEAN CORPUSCULAR HGB CONC 31.4 % (32.0-36.0); PLATELET COUNT 210 TH/MM3 (150-450); RED CELL DISTRIBUTION WIDTH 17.3 % (11.6-17.2); REVIEW FLAG FINAL; WHITE BLOOD COUNT 7.8 TH/MM3 (4.0-11.0)
[2016-03-02 06:51] LABS: BICARBONATE 36.4 MEQ/L (21.0-32.0); POTASSIUM 3.2 MEQ/L (3.5-5.1)
[2016-03-02] MEDS: POTASSIUM CHLOR 40 MEQ PREMIX 100 ML IV PRN (08:15)
[2016-03-02] MEDS: GABAPENTIN 250 MG/5 ML UDC TUBE SCH ×3 (08:16→17:34)
[2016-03-02] MEDS: SODIUM CHLORIDE 0.9% FLUSH 5 ML FLUSH IV FLUSH SCH ×2 (08:16→20:11)
[2016-03-02] MEDS: CHLORHEXIDINE 0.12% (ORAL KIT) 15 ML CUP MT SCH ×2 (08:23→20:14)
[2016-03-02] MEDS: DOCUSATE SODIUM 100 MG/10 ML UDC G-TUBE SCH ×2 (11:08→21:23)
[2016-03-02] MEDS: LINEZOLID 600 MG PREMIX 300 ML IV SCH (11:08)
--- NOTE | 2016-03-02 11:12 | HHI.CCPN ---
Subjective Remarks/Hospital Course Hospital Course: Patient is a 56 year old female who [facility] As per nursing, patient had a nonproductive cough with diminished lung sounds to her lungs. Patient was on continuous oxygen at 2 L, reports that her pulse ox was 84%. Patient was hypoxic when [facility] arrived on scene, patient was placed on BiPAP and transported to the ED. Upon arrival to the ED the patient had acute hypoxic respiratory failure and was intubated. The patient was noted to be hypotensive, central line was placed vasopressor support was initiated. The patient was recently discharged and was currently on antibiotics for ESBL, and a UTI . Labs were obtained and WBC count was noted to be elevated. Critical care medicine was consulted for management and treatment. Subjective: 02/23: pressor requirement starting to stabilize. lactate cleared. uop adequate. awake and following commands. shock persists. renal function improving. urine with GNRs. 02/24: Tmax 99.5. The patient continues on vasopressor support. CPAP trials were attempted yesterday and the patient failed after 30 minutes. 02/25: Levophed discontinued last night, patient continues on fentanyl 100 mcgs for ventilator synchrony. CPAP trials lasting approximately 1 hour today. UA revealed ESBL, patient continues on antibiotics per ID. 02/26:Afebrile. No acute issues overnight. Failed CPAP trials. Tubefeeds started currently at goal. Patient continues to be anxious, Xanax PRN resumed(home medication). 02/28: still failing CPAP trials. significantly agitated on sedation holidays, and this contributes to her respiratory failure. clinically out of shock as wbc improving and afebrile, but significant pressor requirement remains. CT abd/ pelvis yesterday without evidence of free air. 03/01: failed CPAP yesterday for significant agitation. Seroquel and haldol started yesterday. random cortisol is 7, suggestive that this is inadequate response for her current critical illness, and she likely has a significant component of adrenal insufficiency. steroids ordered. 03/02: Failing CPAP trials due to tachypnea and anxiety. Remains on Levophed 5 mcg/min. urine output remains excellent but still significant positive balance. Diamox 500 mg IV 3 days ordered. Chest x-ray pending Objective Vital Signs Date Time Temp Pulse Resp B/P Pulse Ox O2 Delivery O2 Flow Rate FiO2 03/02/16 08:15 50 03/02/16 08:04 94 03/02/16 08:00 110 03/02/16 08:00 98.7 24 137/64 Intake and Output 03/01/16 03/01/16 03/02/16 08:00 16:00 00:00 Intake Total 1792 ml 1084 ml 1091 ml Output Total 1575 ml 3000 ml 2000 ml Balance 217 ml -1916 ml -909 ml Result Diagram: 03/02/16 0525 03/02/16 0525 Imaging Last 24 hours Impressions Chest X-Ray 02/26/16 0000 Signed Impressions: Service Date/Time: Friday, February 26, 2016 09:00 - CONCLUSION: 1. Bibasilar atelectasis and/or infiltrates. 2. Small left pleural effusion. 3. Multiple tubes and lines are in good position. Shankar Graves MD Last 24 hours Impressions Chest X-Ray 02/22/16 1900 Signed Impressions: Service Date/Time: Monday, February 22, 2016 19:45 - CONCLUSION: 1. Basilar airspace disease, stable to slightly improved from January 24, 2016. Cardiomegaly. Braden Gomez MD Objective Remarks GENERAL: A super morbidly obese female lying in bed intubated, anxious. SKIN: Warm and dry. HEAD: Atraumatic. Normocephalic. EYES: Pupils equal and round. No scleral icterus. No injection or drainage. ENT: No nasal bleeding or discharge. Mucous membranes pink and moist. NECK: Trachea midline. Unable to assess JVD. Orotracheally intubation. CARDIOVASCULAR: Normal rate, regular rhythm. RESPIRATORY: Mechanical ventilation Breath sounds equal bilaterally. GASTROINTESTINAL: Abdomen obese soft, non-tender, nondistended. Well-healed midline scar No guarding. Colostomy left upper quadrant MUSCULOSKELETAL: Extremities without clubbing, cyanosis, or edema. No obvious deformities. NEUROLOGICAL: Awake alert on vent follows commands. Fentanyl and propofol infusion. Urinary Catheter: Yes Assessment to: Continue Date of Insertion: Feb 23, 2016 Vascular Central Line Catheter: Yes Assessment to: Continue Date of Insertion: Feb 23, 2016 Side: Right Location: Internal, Jugular A/P Assessment and Plan This is a 56-year-old female with altered mental status with acute hypoxic respiratory failure is likely secondary to septic shock. The patient has had a previous admission approximately 12 weeks ago. Presents with hypotension requiring vasopressor support and elevated WBC count. Patient is critically ill and in septic shock. Her pressor requirement remains. she remains significantly critically ill. she is off pathway. her delirium and tachypnea are significant and without mechanical ventilation and support, she would . She likely has a significant component of adrenal insufficiency contributing to her shock. With the institution of Seroquel and Haldol yesterday, we will see if her agitation has improved. we will again wean sedation and try SBT again today, though her multiple comorbidities remain and she continues to be off pathway with multiple organ systems continuing to be a threat to life. she remains critically ill. Neurologic: Toxic /metabolic encephalopathy Anxiety Agitated Delirium -RASS goal 0. Start Precedex today 03/02/16 to facilitate ventilator weaning ( failed precedex earlier for hypotension and bradycardia, but will attempt again) -IV sedation propofol and fentanyl infusion for ventilator synchrony. -Sedation holiday per ICU protocol - Neurontin,and Xanax patient's home med, continued - Seroquel 100mg per tube q8hr - haldol 5mg iv q4h prn for agitation - wean fent/prop as tolerated. Respiratory: Obstructive sleep apnea Acute hypoxic respiratory failure -Maintain O2 sat greater than 90%, wean FiO2 -Maintain tidal volume 6-8 cc/per ideal body weight -Daily SBT-failing due to tachypnea. Check ABG today Cardiovascular: Hypotension secondary to septic shock Fluid overload History of hypertension Adrenal Insufficiency -norepinephrine requirement persists. at 5mcg/min today. -maintain MAP greater than 65 mmHg. -02/28 random cortisol level 7. Inappropriate for her stressed state. - Hydrocortisone 50mg iv q6hr. will need slow taper for this, since she clearly has residual pressor requirement from inadequate circulating mineralocorticoids. - Diamox 500 mg IV 3 days Renal: NADIR-resolved Renal insufficiency-resolved -Maintain Ocampo -Creatinine baseline --Strict I/Os FEN/GI: -Continue Tube feeds, Vital High Protein currently at 65cc/hour -SL ivf. - Lasix 40mg iv x 1 given again on 03/01, starting Diamox for 3 days due to metabolic alkalosis. goal -500/1L negative. -Bowel regimen -Colostomy-adequate output Heme/ID: Multilobar pneumonia (01/30 discharge hospital) UTI- ESBL klebsiella, Proteus Sputum- MRSA Anemia -ID on board-Dr. Mcwilliams continue Linezolid, imipenem, follow their recommendations Endocrine: Hyperglycemia of Critical Illness Adrenal Insufficiency -- SSI, low scale, q6h -- hydrocortisone 50mg iv q6hr. will need slow taper. Prophylaxis: GI Prophylaxis Protonix DVT Prophylaxis -- SCDs Heparin Lines: Right IJ central line Dr. Bundy 02/22/16, peripheral IVs 2 left radial art line 02/22-discontinued 02/23 Dispo: remain in the ICU. This patient remains critically ill with one or more organ systems which are or may become a threat to life. I have spent in excess of 35 minutes discontinuously in the care and management of this patient. This time is exclusive of procedures, and includes, but is not limited to, evaluation of the patient, review of the medical record, discussions with family, consultants, nursing staff, or respiratory therapy, and documentation in the medical record. Oscar Savage MD Mar 02, 2016 11:12
[2016-03-02] MEDS: DEXMEDETOMIDINE INJ 50 ML IV SCH ×4 (11:35→19:27)
--- NOTE | 2016-03-02 12:27 | RADRPT ---
EXAM DATE/TIME: 03/02/2016 11:14 [facility] COMPARISON: Prior study dated 02/28/2016 used for comparison. INDICATIONS : Evaluate lung status. MEDICAL HISTORY : Chronic obstructive pulmonary disease. Gastroesophageal reflux disease. SURGICAL HISTORY : None. ENCOUNTER: Initial ACUITY: 1 day PAIN SCORE: Non-responsive. LOCATION: Bilateral chest FINDINGS: A single view of the chest demonstrates the endotracheal tube and nasogastric tube are in good positi on. There is a right IJ venous catheter with its tip overlying the right clavicular head. There is mild pulmonary vascular congestion. There is some crowing of the bronchovascular markings in the bas es. CONCLUSION: ET tube in good position. The central line tip is only over the right medial clavicular [facility]. Luis Raymond MD on March 02, 2016 at 12:03 Board Certified Radiologist. This report was verified electronically.
[2016-03-02 12:54] LABS: BLOOD GAS BASE EXCESS 11.1 mmol/L (-2-2); BLOOD GAS CARBOXYHEMOGLOBIN 1.3 % (0-4); BLOOD GAS HCO3 35 mmol/L (22-26); BLOOD GAS METHEMOGLOBIN 0.8 % (0-2); BLOOD GAS O2 HGB SATURATION 91 % (90-100); BLOOD GAS OXYGEN CONTENT 12.6 Vol % (12.0-20.0); BLOOD GAS PCO2 49 mmHg (38-42); BLOOD GAS PO2 64 mmHg (61-120); BLOOD GAS TOTAL HGB 9.8 G/DL (12.0-16.0); CRITICAL VALUE NO; DRAW SITE RT RADIAL; FIO2 45 %; NUMBER OF ARTERIAL PUNCTURES 1; OXYGEN DEVICE VENT; STAT NO; TEMP CORR TO 98.6; ULNAR PULSE PRESENT; VENT SETTINGS CPAP 15/5
[2016-03-02] MEDS: DEXMEDETOMIDINE INJ 1,000 MCG in SODIUM CHLOR 0.9% 250 ML INJ 240 ML IV SCH (20:52)
[2016-03-03] VITALS (19 sets, daily range): BP systolic 123–144; BP diastolic 56–67; PULSE 60–104; RESP 18–26; TEMP 98.2–98.6; O2SAT 89–98
[2016-03-03] MEDS: HYDROCORTISONE SOD SUCCINATE 100 MG VIAL IV PUSH SCH ×5 (00:46→23:40)
[2016-03-03] MEDS: LINEZOLID 600 MG PREMIX 300 ML IV SCH ×3 (00:47→23:40)
[2016-03-03] MEDS: RESP: ALBUTEROL 2.5 MG/IPRATROPIUM 0.5 MG NEB (SCH) NEB ×6 (03:11→23:04)
[2016-03-03] MEDS: CHLORHEXIDINE GLUCONATE 2 % 1 PACK (2 CLOTHS) TOP SCH ×2 (04:00→23:42)
[2016-03-03] MEDS: DEXMEDETOMIDINE INJ 1,000 MCG in SODIUM CHLOR 0.9% 250 ML INJ 240 ML IV SCH (05:10)
[2016-03-03] MEDS: IMIPENEM/CILASTATIN INJ 500 MG in SODIUM CHLORIDE 0.9% INJ 100 ML IV SCH ×3 (05:10→20:14)
[2016-03-03] MEDS: HEPARIN SODIUM - SQ 10,000 UNITS/ML VIAL SQ SCH ×3 (05:12→17:55)
[2016-03-03] MEDS: QUEtiapine FUMARATE 100 MG TAB PO SCH ×3 (05:13→20:14)
--- NOTE | 2016-03-03 05:35 | RADRPT ---
EXAM DATE/TIME: 03/03/2016 03:10 [facility] COMPARISON: CHEST SINGLE AP, March 02, 2016, 11:14. INDICATIONS : Shortness of breath, possible pulmonary disease. MEDICAL HISTORY : Chronic obstructive pulmonary disease. Gastroesophageal reflux disease. SURGICAL HISTORY : None. ENCOUNTER: Subsequent ACUITY: 1 week PAIN SCORE: Non-responsive. LOCATION: Bilateral chest FINDINGS: Endotracheal tube is present with tip 2 cm above the yaritza. Nasogastric tube descends in the stomach . Right central line is stable in position with tip overlying the low internal jugular vein. Left bas e consolidation is again noted. Vascular congestion persists. Accounting for rotation, cardiac contou rs are grossly stable CONCLUSION: Slight interval worsening aeration Hussein Trejo MD on March 03, 2016 at 5:31 Board Certified Radiologist. This report was verified electronically.
[2016-03-03] MEDS: INSULIN NovoLIN REGULAR SUPPLEMENTAL SCALE SQ SCH ×4 (07:12→20:14)
[2016-03-03 07:46] LABS: ALKALINE PHOSPHATASE 78 U/L (45-117); TOTAL BILIRUBIN ADULT 0.2 MG/DL (0.2-1.0)
[2016-03-03 07:51] LABS: ALT (GPT) 24 U/L (10-53); ANION GAP 6 MEQ/L (5-15); AST (GOT) 41 U/L (15-37); BICARBONATE 32.8 MEQ/L (21.0-32.0); BLOOD UREA NITROGEN 14 MG/DL (7-18); CHLORIDE 102 MEQ/L (98-107); GLOMERULAR FILTRATION RATE 147 ML/MIN (>89); MAGNESIUM 2.2 MG/DL (1.5-2.5); POTASSIUM 3.8 MEQ/L (3.5-5.1); SODIUM (NA) 141 MEQ/L (136-145)
[2016-03-03 07:56] LABS: AUTOMATED NEUTROPHIL # 7.8 TH/MM3 (1.8-7.7); BASOPHIL % 0.3 % (0.0-2.0); EOSINOPHIL % 0.2 % (0.0-4.0); HEMATOCRIT 33.5 % (35.0-46.0); LYMPH % 9.5 % (9.0-44.0); LYMPHOCYTE # 0.9 TH/MM3 (1.0-4.8); MEAN CELL VOLUME 84.5 FL (80.0-100.0); MEAN CORPUSCULAR HEMOGLOBIN 26.3 PG (27.0-34.0); MEAN CORPUSCULAR HGB CONC 31.1 % (32.0-36.0); PLATELET COUNT 238 TH/MM3 (150-450); RED BLOOD COUNT 3.97 MIL/MM3 (4.00-5.30); RED CELL DISTRIBUTION WIDTH 17.3 % (11.6-17.2); WHITE BLOOD COUNT 9.1 TH/MM3 (4.0-11.0)
[2016-03-03 07:57] LABS: HEMO FLAGS AUTO DIFF
[2016-03-03] MEDS: PANTOPRAZOLE SODIUM 40 MG VIAL IV SCH (07:58)
[2016-03-03] MEDS: CHLORHEXIDINE 0.12% (ORAL KIT) 15 ML CUP MT SCH ×2 (07:59→19:13)
[2016-03-03] MEDS: GABAPENTIN 250 MG/5 ML UDC TUBE SCH ×3 (07:59→17:55)
[2016-03-03] MEDS: SODIUM CHLORIDE 0.9% FLUSH 5 ML FLUSH IV FLUSH SCH ×2 (07:59→20:14)
[2016-03-03 08:53] LABS: PLATELET ESTIMATE SMEAR NORMAL (NORMAL); PLATELET MORPHOLOGY ENLARGED (NORMAL); SCAN/DIFF AUTO DIFF CONFIRMED
[2016-03-03] MEDS: DOCUSATE SODIUM 100 MG/10 ML UDC G-TUBE SCH ×2 (09:27→20:14)
[2016-03-03] MEDS: fentaNYL DRIP 250 ML IV SCH ×2 (11:23→20:14)
--- NOTE | 2016-03-03 11:47 | HHI.CCPN ---
Subjective Remarks/Hospital Course Hospital Course: Patient is a 56 year old female who presented to ED from a detention respiratory distress. Patient was noted to have decreased alertness at the detention. As per nursing, patient had a nonproductive cough with diminished lung sounds to her lungs. Patient was on continuous oxygen at 2 L, reports that her pulse ox was 84%. Patient was hypoxic when [facility] arrived on scene, patient was placed on BiPAP and transported to the ED. Upon arrival to the ED the patient had acute hypoxic respiratory failure and was intubated. The patient was noted to be hypotensive, central line was placed vasopressor support was initiated. The patient was recently discharged and was currently on antibiotics for ESBL, and a UTI . Labs were obtained and WBC count was noted to be elevated. Critical care medicine was consulted for management and treatment. Subjective: 02/23: pressor requirement starting to stabilize. lactate cleared. uop adequate. awake and following commands. shock persists. renal function improving. urine with GNRs. 02/24: Tmax 99.5. The patient continues on vasopressor support. CPAP trials were attempted yesterday and the patient failed after 30 minutes. 02/25: Levophed discontinued last night, patient continues on fentanyl 100 mcgs for ventilator synchrony. CPAP trials lasting approximately 1 hour today. UA revealed ESBL, patient continues on antibiotics per ID. 02/26:Afebrile. No acute issues overnight. Failed CPAP trials. Tubefeeds started currently at goal. Patient continues to be anxious, Xanax PRN resumed(home medication). 02/28: still failing CPAP trials. significantly agitated on sedation holidays, and this contributes to her respiratory failure. clinically out of shock as wbc improving and afebrile, but significant pressor requirement remains. CT abd/ pelvis yesterday without evidence of free air. 03/01: failed CPAP yesterday for significant agitation. Seroquel and haldol started yesterday. random cortisol is 7, suggestive that this is inadequate response for her current critical illness, and she likely has a significant component of adrenal insufficiency. steroids ordered. 03/02: Failing CPAP trials due to tachypnea and anxiety. Remains on Levophed 5 mcg/min. urine output remains excellent but still significant positive balance. Diamox 500 mg IV 3 days ordered. Chest x-ray pending 03/03: Awake alert on Precedex and Fentanyl, Tachypneic on CPAP. Diffuse bilateral wheezing. CXR shows increasing LLL infiltrate Objective Vital Signs Date Time Temp Pulse Resp B/P Pulse Ox O2 Delivery O2 Flow Rate FiO2 03/03/16 08:25 55 03/03/16 08:25 94 03/03/16 08:00 82 03/03/16 04:00 98.5 22 123/56 Intake and Output 03/02/16 03/02/16 03/03/16 08:00 16:00 00:00 Intake Total 1270 ml 851 ml 1317 ml Output Total 650 ml 850 ml 800 ml Balance 620 ml 1 ml 517 ml Result Diagram: 03/03/16 0441 03/03/16 0441 Other Results Laboratory Tests Test 03/02/16 12:45 Blood Gas Puncture Site RT RADIAL Blood Gas Patient Temperature 98.6 Blood Gas HCO3 35 mmol/L (22-26) Blood Gas Base Excess 11.1 mmol/L (-2-2) Blood Gas Oxygen Saturation 91 % (90-100) Arterial Blood pH 7.47 (7.380-7.420) Arterial Blood Partial 49 mmHg (38-42) Pressure CO2 Arterial Blood Partial 64 mmHg Pressure O2 (61-120) Arterial Blood Oxygen Content 12.6 Vol % (12.0-20.0) Arterial Blood 1.3 % (0-4) Carboxyhemoglobin Arterial Blood Methemoglobin 0.8 % (0-2) Blood Gas Hemoglobin 9.8 G/DL (12.0-16.0) Oxygen Delivery Device VENT Blood Gas Ventilator Setting CPAP 15/5 Blood Gas Inspired Oxygen 45 % Imaging Last 24 hours Impressions Chest X-Ray 02/26/16 0000 Signed Impressions: Service Date/Time: Friday, February 26, 2016 09:00 - CONCLUSION: 1. Bibasilar atelectasis and/or infiltrates. 2. Small left pleural effusion. 3. Multiple tubes and lines are in good position. Shankar Graves MD Last 24 hours Impressions Chest X-Ray 02/22/16 1900 Signed Impressions: Service Date/Time: Monday, February 22, 2016 19:45 - CONCLUSION: 1. Basilar airspace disease, stable to slightly improved from January 24, 2016. Cardiomegaly. Braden Gomez MD Objective Remarks GENERAL: A super morbidly obese female lying in bed intubated, anxious. SKIN: Warm and dry. HEAD: Atraumatic. Normocephalic. EYES: Pupils equal and round. No scleral icterus. No injection or drainage. ENT: No nasal bleeding or discharge. Mucous membranes pink and moist. NECK: Trachea midline. Unable to assess JVD. Orotracheally intubation. CARDIOVASCULAR: Normal rate, regular rhythm. RESPIRATORY: Mechanical ventilation Breath sounds equal bilaterally. Diffuse bilateral wheezing GASTROINTESTINAL: Abdomen obese soft, non-tender, nondistended. Well-healed midline scar No guarding. Colostomy left upper quadrant MUSCULOSKELETAL: Extremities without clubbing, cyanosis, or edema. No obvious deformities. NEUROLOGICAL: Awake alert on vent follows commands. Fentanyl and Precedex infusion. Date of Insertion: Feb 23, 2016 Date of Insertion: Feb 23, 2016 Side: Right Location: Internal, Jugular A/P Assessment and Plan 56-year-old female with AMS with acute hypoxic respiratory failure is likely secondary to septic shock. The patient has had a previous admission approximately 12 weeks ago. Presents with hypotension requiring vasopressor support and elevated WBC count. Critically ill and in septic shock. Her delirium and tachypnea are significant and without mechanical ventilation and support, she would . She likely has a significant component of adrenal insufficiency contributing to her shock. We will again wean sedation and try SBT again today, though her multiple comorbidities remain and she continues to be off pathway with multiple organ systems continuing to be a threat to life. she remains critically ill. Neurologic: Toxic /metabolic encephalopathy Anxiety Agitated Delirium - Precedex and Fentanyl to facilitate vent weaning - Sedation holiday per ICU protocol - Neurontin,and Xanax patient's home med, continued - Seroquel 100mg per tube q8hr - Haldol 5mg iv q4h prn for agitation Respiratory: Acute hypoxic respiratory failure Acute COPD exacerbation MRSA pneumonia Obstructive sleep apnea -Maintain O2 sat greater than 90%, wean FiO2 -Maintain tidal volume 6-8 cc/per ideal body weight -Daily SBT-failing due to tachypnea. -DuoNeb every 4 hours and when necessary -Zyvox for MRSA pneumonia -Steroids in the form of hydrocortisone -Patient may likely need tracheostomy if not weaning in 1-2 days (vent day 10) Cardiovascular: Hypotension secondary to septic shock Fluid overload History of hypertension Adrenal Insufficiency -Currently weaned off norepinephrine -maintain MAP greater than 65 mmHg. -1/13 random cortisol level 7. Inappropriate for her stressed state. Hydrocortisone 50mg iv q6hr - Diamox 500 mg IV 3 days started on 03/02/16 Renal: NADIR-resolved Renal insufficiency-resolved -Maintain Ocampo -Creatinine baseline --Strict I/Os FEN/GI: -Continue Tube feeds, Vital High Protein currently at 65cc/hour - Lasix 40mg iv x 1 given again on 03/01, starting Diamox for 3 days due to metabolic alkalosis. goal -500/1L negative. -Bowel regimen -Colostomy-adequate output Heme/ID: Multilobar pneumonia (01/30 discharge hospital) UTI- ESBL klebsiella, Proteus Sputum- MRSA Anemia -ID on board-Dr. Mcwilliams continue Linezolid, imipenem, follow their recommendations Endocrine: Hyperglycemia of Critical Illness Adrenal Insufficiency -- SSI, low scale, q6h -- hydrocortisone 50mg iv q6hr. will need slow taper. Prophylaxis: GI Prophylaxis Protonix DVT Prophylaxis -- SCDs Heparin Lines: Right IJ central line Dr. Bundy 02/22/16, peripheral IVs 2 left radial art line 02/22-discontinued 02/23 Dispo: remain in the ICU. This patient remains critically ill with one or more organ systems which are or may become a threat to life. I have spent in excess of 35 minutes discontinuously in the care and management of this patient. This time is exclusive of procedures, and includes, but is not limited to, evaluation of the patient, review of the medical record, discussions with family, consultants, nursing staff, or respiratory therapy, and documentation in the medical record. Oscar Savage MD Mar 03, 2016 11:47
--- NOTE | 2016-03-03 15:43 | HHI.IDPN ---
Note Infectious Disease Note Patient remains on the vent. Continues to do CPAP trials. Awakens and alert. Off Levophed. BP stable. No distress. Afebrile. D/W RN. This is a 56-year-old white female who was brought to the emergency department from a [facility] facility. The patient reportedly was in respiratory distress and had decreased alertness at the fpc facility. The patient was recently in the hospital in January 2016. She was treated with antibiotics for MRSA pneumonia. She was also treated recently for a UTI with ESBL. She received Macrobid for seven days. After that she was put on Levaquin for presumed stomach infection. She was due to continue antibiotics until 01/30 with the Levaquin. Chest x-ray on admission showed left lower lobe pneumonia. PAST MEDICAL HISTORY 1. COPD. 2. Anxiety. 3. Depression. 4. Gastroesophageal reflux disease. 5. Diverticulitis. 6. Kidney stones. 7. Herniated disc. 8. Sleep apnea. 9. Gastric bypass. 10. Colostomy. 11. Chronic back pain. 12. MRSA pneumonia. ALLERGIES PENICILLIN. Current Medications Medications (Trade) Dose Ordered Sig/Elliot Route PRN Reason Start Time Stop Time Status Last Admin Dose Admin Fentanyl Citrate 250 ml @ 0 mls/hr TITRATE IV 02/22/16 21:00 03/03/16 11:23 Norepinephrine Bitartrate (Levophed-Dextrose Drip) 250 ml @ 0 mls/hr TITRATE IV 02/22/16 23:00 03/02/16 03:56 Terbutaline Sulfate (Brethine Inj) 1 mg UNSCH PRN SQ For Extravasation 02/22/16 23:00 IV Flush (NS Flush) 2 ml UNSCH PRN IV FLUSH FLUSH AFTER USING IV ACCESS 02/22/16 22:45 IV Flush (NS Flush) 2 ml BID IV FLUSH 02/23/16 09:00 03/03/16 07:59 Acetaminophen (Tylenol) 650 mg Q6H PRN PO PAIN 1-10 AND/OR FEVER >101F 02/22/16 22:45 02/23/16 12:36 Pantoprazole Sodium (Protonix Inj) 40 mg DAILY IV 02/23/16 09:00 03/03/16 07:58 Ondansetron HCl (Zofran Inj) 4 mg Q6H PRN IV NAUSEA OR VOMITING 02/22/16 22:45 Docusate Sodium (Colace Liq) 100 mg Q12H G-TUBE 02/22/16 22:45 03/03/16 09:27 Bisacodyl (Dulcolax Supp) 10 mg DAILY PRN RECTAL CONSTIPATION 02/22/16 22:45 Magnesium Hydroxide (Milk Of Magnesia Liq) 30 ml Q12H PRN PO CONSTIPATION 02/22/16 22:45 Sennosides (Senokot) 17.2 mg Q12H PRN PO CONSTIPATION 02/22/16 22:45 Miscellaneous Information 1 Q361D XX 02/22/16 22:45 Chlorhexidine Gluconate (Chlorhexidine 2% Cloth) Taper DAILY@04 TOP 02/23/16 04:00 02/18/17 03:59 02/29/16 21:23 Chlorhexidine Gluconate 3 pack 3 pack UNSCH PRN TOP HYGIENIC CARE 02/22/16 22:45 Propofol 100 ml @ 0 mls/hr TITRATE IV 02/22/16 22:45 03/01/16 21:40 Potassium Chloride 100 ml @ 50 mls/hr Q2H PRN IV For Potassium 2.8 - 3.2 mEq/L 02/22/16 22:45 03/02/16 08:15 Potassium Chloride (KCl 20 Meq Premix Inj) 100 ml @ 50 mls/hr Q2H PRN IV For Potassium 2.8 - 3.2 mEq/L 02/22/16 22:45 Potassium Chloride 40 meq 40 meq UNSCH PRN PO/TUBE For Potassium 3.3 - 3.5 mEq/L 02/22/16 22:45 02/25/16 11:57 Potassium Chloride 100 ml @ 25 mls/hr UNSCH PRN IV For Potassium 3.3 - 3.5 mEq/L 02/22/16 22:45 Potassium Chloride 100 ml @ 50 mls/hr Q2H PRN IV For Potassium 3.3 - 3.5 mEq/L 02/22/16 22:45 Magnesium Sulfate/ Sodium Chloride (Magnesium Sulfate Inj/NS Inj) 100 ml @ 50 mls/hr UNSCH PRN IV For Magnesium 0.9 - 1.1 mg/dL 02/22/16 22:45 Magnesium Oxide 800 mg 800 mg UNSCH PRN PO For Magnesium 1.2 - 1.6 mg/dL 02/22/16 22:45 Magnesium Sulfate/ Sodium Chloride (Magnesium Sulfate Inj/NS Inj) 100 ml @ 50 mls/hr UNSCH PRN IV For Magnesium 1.2 - 1.6 mg/dL 02/22/16 22:45 Potassium Phosphate 2000 mg 2,000 mg Q4H PRN PO For Phosphorus < 2.5 mg/dL 02/22/16 22:45 Sodium Phosphate/ Sodium Chloride (Sodium Phosphate Inj/NS 250 ml Inj) 250 ml @ 42 mls/hr UNSCH PRN IV For Phosphorus < 2.5 mg/dL 02/22/16 22:45 02/26/16 08:32 Potassium Chloride (KCl 40 Meq/30 ml Liq) 40 meq UNSCH PRN PO/TUBE SEE LABEL COMMENTS 02/22/16 22:45 Potassium Phosphate 2000 mg 2,000 mg UNSCH PRN PO/TUBE SEE LABEL COMMENTS 02/22/16 22:45 Potassium Phosphate/Sodium Chloride (Potassium Phosphate Inj/NS 250 ml Inj) 260 ml @ 42 mls/hr UNSCH PRN IV SEE LABEL COMMENTS 02/22/16 22:45 Chlorhexidine Gluconate (Peridex 0.12% Liq) 15 ml BID@08,20 MT 02/23/16 08:00 03/03/16 07:59 Dextrose (D50w (Vial) Inj) 25 ml UNSCH PRN IV PUSH HYPOGLYCEMIA-SEE COMMENTS 02/22/16 22:45 Glucagon 1 mg 1 mg UNSCH PRN OTHER HYPOGLYCEMIA-SEE COMMENTS 02/22/16 22:45 Linezolid 300 ml @ 300 mls/hr Q12H IV 02/23/16 12:00 03/03/16 11:19 Imipenem/ Cilastatin Sodium/ Sodium Chloride (Primaxin Inj/NS Inj) 100 ml @ 200 mls/hr Q8H IV 02/23/16 13:00 03/03/16 11:20 Alprazolam (Xanax) 0.5 mg Q4H PRN PO ANXIETY 02/26/16 19:00 03/01/16 10:58 Gabapentin (Neurontin Liq) 300 mg TID TUBE 02/27/16 09:00 03/03/16 11:32 Quetiapine Fumarate (SEROquel) 100 mg Q8HR PO 02/29/16 10:00 03/03/16 13:50 Haloperidol Lactate (Haldol Inj) 5 mg Q4H PRN IV PUSH agitation, delirium 02/29/16 09:15 03/02/16 20:11 Hydrocortisone Sodium Succinate (SoluCORTEF INJ) 50 mg Q6HR IV PUSH 03/01/16 10:25 03/03/16 11:22 Heparin Sodium (Porcine) (Heparin Inj) 5,000 units Q8H SQ 03/01/16 11:00 03/03/16 09:27 Acetazolamide Sodium 500 mg 500 mg DAILY IV PUSH 03/02/16 11:00 03/04/16 08:59 03/03/16 07:58 Dexmedetomidine HCl/Sodium Chloride (Precedex Inj/NS 250 ml Inj) 250 ml @ 0 mls/hr TITRATE IV 03/02/16 20:30 03/03/16 05:10 SOCIAL HISTORY No tobacco, alcohol or illicit drugs. FAMILY HISTORY Unable to obtain. REVIEW OF SYSTEMS Unable to obtain. OBJECTIVE: Vital Signs Date Time Temp Pulse Resp B/P Pulse Ox O2 Delivery O2 Flow Rate FiO2 03/03/16 15:06 97 45 03/03/16 14:00 102 03/03/16 12:34 95 50 03/03/16 12:00 98.6 104 20 133/63 96 03/03/16 12:00 55 03/03/16 12:00 104 03/03/16 10:00 78 03/03/16 08:25 55 03/03/16 08:25 94 55 03/03/16 08:00 82 03/03/16 08:00 55 03/03/16 08:00 98.6 80 26 144/67 96 03/03/16 06:00 63 03/03/16 05:00 55 03/03/16 04:10 93 55 03/03/16 04:00 98.5 81 22 123/56 89 03/03/16 04:00 81 03/03/16 04:00 50 03/03/16 02:00 60 03/03/16 01:05 94 45 03/03/16 00:00 45 03/03/16 00:00 70 03/03/16 00:00 98.4 70 22 132/66 94 03/02/16 22:25 92 45 03/02/16 22:00 69 03/02/16 20:08 96 45 03/02/16 20:00 86 03/02/16 20:00 98.5 86 18 150/68 94 03/02/16 20:00 45 03/02/16 18:00 69 03/02/16 16:00 45 03/02/16 16:00 98.4 87 18 111/58 93 03/02/16 16:00 87 03/02/16 03/02/16 03/03/16 15:00 23:00 07:00 Intake Total 851 ml 1317 ml 1441 ml Output Total 850 ml 800 ml 250 ml Balance 1 ml 517 ml 1191 ml Intake IV Total 461 ml 906 ml 890 ml Tube Feeding 240 ml 351 ml 491 ml Other 150 ml 60 ml 60 ml Output Urine Total 450 ml 750 ml 250 ml Stool Total 400 ml 50 ml 0 ml Laboratory Tests Test 03/02/16 03/03/16 05:25 04:41 White Blood Count 7.8 TH/MM3 9.1 TH/MM3 Red Blood Count 3.90 MIL/MM3 3.97 MIL/MM3 Hemoglobin 10.1 GM/DL 10.4 GM/DL Hematocrit 32.3 % 33.5 % Mean Corpuscular Volume 82.9 FL 84.5 FL Mean Corpuscular Hemoglobin 26.0 PG 26.3 PG Mean Corpuscular Hemoglobin 31.4 % 31.1 % Concent Red Cell Distribution Width 17.3 % 17.3 % Platelet Count 210 TH/MM3 238 TH/MM3 Mean Platelet Volume 9.4 FL 10.0 FL Neutrophils (%) (Auto) 85.0 % Lymphocytes (%) (Auto) 9.5 % Monocytes (%) (Auto) 5.0 % Eosinophils (%) (Auto) 0.2 % Basophils (%) (Auto) 0.3 % Neutrophils # (Auto) 7.8 TH/MM3 Lymphocytes # (Auto) 0.9 TH/MM3 Monocytes # (Auto) 0.5 TH/MM3 Eosinophils # (Auto) 0.0 TH/MM3 Basophils # (Auto) 0.0 TH/MM3 CBC Comment AUTO DIFF Differential Comment AUTO DIFF CONFIRMED Platelet Estimate NORMAL Platelet Morphology Comment ENLARGED Laboratory Tests Test 03/02/16 03/02/16 03/03/16 05:25 16:03 04:41 Sodium Level 143 MEQ/L 141 MEQ/L Potassium Level 3.2 MEQ/L 3.5 MEQ/L 3.8 MEQ/L Chloride Level 100 MEQ/L 102 MEQ/L Carbon Dioxide Level 36.4 MEQ/L 32.8 MEQ/L Anion Gap 7 MEQ/L 6 MEQ/L Blood Urea Nitrogen 9 MG/DL 14 MG/DL Creatinine 0.40 MG/DL 0.44 MG/DL Estimat Glomerular Filtration 165 ML/MIN 147 ML/MIN Rate Random Glucose 204 MG/DL 184 MG/DL Calcium Level 8.3 MG/DL 8.6 MG/DL Magnesium Level 2.2 MG/DL Total Bilirubin 0.2 MG/DL Aspartate Amino Transf 41 U/L (AST/SGOT) Alanine Aminotransferase 24 U/L (ALT/SGPT) Alkaline Phosphatase 78 U/L Total Protein 4.9 GM/DL Albumin 1.6 GM/DL Microbiology Date/Time Procedure Status Source Growth 03/03/16 13:00 Gram Stain Received Sputum Endotracheal Pending 03/03/16 13:00 Sputum Culture Received Sputum Endotracheal Pending Microbiology Date/Time Procedure Status Source Growth 02/25/16 12:48 Gram Stain - Final Complete Sputum Endotracheal 02/25/16 12:48 Sputum Culture - Final Complete S. Aureus Mrsa IMAGING: Chest X-Ray 03/03/16 0600 Signed Impressions: Service Date/Time: Thursday, March 03, 2016 03:10 - CONCLUSION: Slight interval worsening aeration Hussein Trejo MD Chest X-Ray 03/02/16 0000 Signed Impressions: Service Date/Time: Wednesday, March 02, 2016 11:14 - CONCLUSION: ET tube in good position. The central line tip is only over the right medial clavicular head unchanged. Luis Raymond MD Chest X-Ray 02/28/16 0800 Signed Impressions: Service Date/Time: February 08:12 - CONCLUSION: New free air under the left hemidiaphragm. Lines and tubes are stable.. Ivania Ya MD Abdomen/Pelvis CT 02/28/16 0000 Signed Impressions: Service Date/Time: February 14:07 - CONCLUSION: 1. There is no free intraperitoneal air. The chest x-ray finding likely was projectional. 2. Mild diffuse circumferential wall thickening and mild surrounding inflammation of the entire colon to the colostomy. Although nonspecific this could represent a colitis such as C. difficile colitis. There is trace free fluid in the pelvis. 3. Small bilateral pleural effusions with associated compressive atelectasis. Hussein Ortiz MD Chest X-Ray 02/26/16 0000 Signed Impressions: Service Date/Time: Friday, February 26, 2016 09:00 - CONCLUSION: 1. Bibasilar atelectasis and/or infiltrates. 2. Small left pleural effusion. 3. Multiple tubes and lines are in good position. Shankar Graves MD Chest CT 02/23/16 0000 Signed Impressions: Service Date/Time: Tuesday, February 23, 2016 16:35 - CONCLUSION: Bilateral lower lobe consolidated infiltrates or prominent left than the right. ET tube above the yaritza and nasogastric tube passing into the stomach Duncan Friedman MD Abdomen/Pelvis CT 02/23/16 0000 Signed Impressions: Service Date/Time: Tuesday, February 23, 2016 16:35 - CONCLUSION: No acute intra-abdominal process. Colostomy distal left descending colon. Prior cholecystectomy with clips in place . Solitary punctate bilateral renal nonobstructing calyceal stone Duncan Friedman MD PHYSICAL EXAMINATION GENERAL: On the ventilator. Awake. Follows commands. HEENT: No icterus. No conjunctival erythema. Oropharynx intubated. Buccal mucosa is moist. NECK: Supple without adenopathy or swelling. LUNGS: Breath sounds decreased with basilar rhonchi. HEART: Regular S1, S2. No audible murmurs. ABDOMEN: Obese. Nontender. Decreased bowel sounds. Left-sided colostomy appears functioning. EXTREMITIES: No clubbing or cyanosis or edema. NEUROLOGIC: Alert on the vent. SKIN: No rash. warm and most. IMPRESSION 1. Sepsis with shock. Still requiring pressors. 2. Urinary tract infection. ESBL Klebsiella, Proteus. 3. Pneumonia. MRSA. 4. Acute respiratory failure. Vent dependent. 5. Acute renal failure. improving. 6. Leukocytosis. Secondary to sepsis. WBC improving. RECOMMENDATIONS 1. Continue Linezolid. 2. Continue Imipenem. 3. Monitor white blood cell count. 4. Follow clinical status. 5. Monitor Platelet count. 6. Follow repeat sputum culture. Manny Mcwilliams MD Mar 03, 2016 15:43
[2016-03-03 16:36] LABS: BLOOD GAS BASE EXCESS 6.5 mmol/L (-2-2); BLOOD GAS CARBOXYHEMOGLOBIN 1.3 % (0-4); BLOOD GAS HCO3 32 mmol/L (22-26); BLOOD GAS O2 HGB SATURATION 95 % (90-100); BLOOD GAS PCO2 55 mmHg (38-42); BLOOD GAS PO2 87 mmHg (61-120); BLOOD GAS TOTAL HGB 9.7 G/DL (12.0-16.0); TEMP CORR TO 98.6
[2016-03-03 16:37] LABS: CRITICAL VALUE YES; DRAW SITE RT RADIAL; FIO2 45 %; NUMBER OF ARTERIAL PUNCTURES 1; OXYGEN DEVICE VENTILATOR; STAT NO; ULNAR PULSE PRESENT; VENT SETTINGS CPAP+5/PS+5
[2016-03-04] VITALS (14 sets, daily range): BP systolic 99–141; BP diastolic 50–70; PULSE 78–100; RESP 20–24; TEMP 97.4–98.6; O2SAT 92–98
[2016-03-04] MEDS: ALPRAZolam 0.5 MG TAB PO PRN (01:44)
[2016-03-04] MEDS: HEPARIN SODIUM - SQ 10,000 UNITS/ML VIAL SQ SCH ×3 (01:44→18:48)
[2016-03-04] MEDS: RESP: ALBUTEROL 2.5 MG/IPRATROPIUM 0.5 MG NEB (SCH) NEB ×6 (03:02→23:25)
[2016-03-04] MEDS: IMIPENEM/CILASTATIN INJ 500 MG in SODIUM CHLORIDE 0.9% INJ 100 ML IV SCH ×3 (04:11→21:12)
[2016-03-04] MEDS: HYDROCORTISONE SOD SUCCINATE 100 MG VIAL IV PUSH SCH (04:12)
[2016-03-04] MEDS: QUEtiapine FUMARATE 100 MG TAB PO SCH ×3 (04:12→21:12)
[2016-03-04] MEDS: INSULIN NovoLIN REGULAR SUPPLEMENTAL SCALE SQ SCH ×4 (06:10→21:12)
--- NOTE | 2016-03-04 07:28 | HHI.CCPN ---
Subjective Remarks/Hospital Course Hospital Course: Patient is a 56 year old female who presented to ED from a [facility] respiratory distress. Patient was noted to have decreased alertness at the [facility]. As per nursing, patient had a nonproductive cough with diminished lung sounds to her lungs. Patient was on continuous oxygen at 2 L, reports that her pulse ox was 84%. Patient was hypoxic when [facility] arrived on scene, patient was placed on BiPAP and transported to the ED. Upon arrival to the ED the patient had acute hypoxic respiratory failure and was intubated. The patient was noted to be hypotensive, central line was placed vasopressor support was initiated. The patient was recently discharged and was currently on antibiotics for ESBL, and a UTI . Labs were obtained and WBC count was noted to be elevated. Critical care medicine was consulted for management and treatment. Subjective: 02/23: pressor requirement starting to stabilize. lactate cleared. uop adequate. awake and following commands. shock persists. renal function improving. urine with GNRs. 02/24: Tmax 99.5. The patient continues on vasopressor support. CPAP trials were attempted yesterday and the patient failed after 30 minutes. 02/25: Levophed discontinued last night, patient continues on fentanyl 100 mcgs for ventilator synchrony. CPAP trials lasting approximately 1 hour today. UA revealed ESBL, patient continues on antibiotics per ID. 02/26:Afebrile. No acute issues overnight. Failed CPAP trials. Tubefeeds started currently at goal. Patient continues to be anxious, Xanax PRN resumed(home medication). 02/28: still failing CPAP trials. significantly agitated on sedation holidays, and this contributes to her respiratory failure. clinically out of shock as wbc improving and afebrile, but significant pressor requirement remains. CT abd/ pelvis yesterday without evidence of free air. 03/01: failed CPAP yesterday for significant agitation. Seroquel and haldol started yesterday. random cortisol is 7, suggestive that this is inadequate response for her current critical illness, and she likely has a significant component of adrenal insufficiency. steroids ordered. 03/02: Failing CPAP trials due to tachypnea and anxiety. Remains on Levophed 5 mcg/min. urine output remains excellent but still significant positive balance. Diamox 500 mg IV 3 days ordered. Chest x-ray pending 03/03: Awake alert on Precedex and Fentanyl, Tachypneic on CPAP. Diffuse bilateral wheezing. CXR shows increasing LLL infiltrate 03/04: Extubated yesterday, tolerating well. C/o chronic pain. Pulmonary consulted Objective Vital Signs Date Time Temp Pulse Resp B/P Pulse Ox O2 Delivery O2 Flow Rate FiO2 03/04/16 06:00 95 03/04/16 04:00 98.6 20 120/56 95 03/03/16 19:21 Nasal Cannula 4.00 03/03/16 16:49 36 Intake and Output 03/03/16 03/03/16 03/04/16 08:00 16:00 00:00 Intake Total 1441 ml 1536 ml 410 ml Output Total 250 ml 650 ml 970 ml Balance 1191 ml 886 ml -560 ml Result Diagram: 03/03/16 0441 03/03/16 0441 Other Results Laboratory Tests Test 03/03/16 16:28 Blood Gas Puncture Site RT RADIAL Blood Gas Patient Temperature 98.6 Blood Gas HCO3 32 mmol/L (22-26) Blood Gas Base Excess 6.5 mmol/L (-2-2) Blood Gas Oxygen Saturation 95 % (90-100) Arterial Blood pH 7.38 (7.380-7.420) Arterial Blood Partial 55 mmHg (38-42) Pressure CO2 Arterial Blood Partial 87 mmHg Pressure O2 (61-120) Arterial Blood Oxygen Content 13.0 Vol % (12.0-20.0) Arterial Blood 1.3 % (0-4) Carboxyhemoglobin Arterial Blood Methemoglobin 1.0 % (0-2) Blood Gas Hemoglobin 9.7 G/DL (12.0-16.0) Oxygen Delivery Device VENTILATOR Blood Gas Ventilator Setting CPAP+5/PS+5 Blood Gas Inspired Oxygen 45 % Imaging Last 24 hours Impressions Chest X-Ray 02/26/16 0000 Signed Impressions: Service Date/Time: Friday, February 26, 2016 09:00 - CONCLUSION: 1. Bibasilar atelectasis and/or infiltrates. 2. Small left pleural effusion. 3. Multiple tubes and lines are in good position. Shankar Graves MD Last 24 hours Impressions Chest X-Ray 02/22/16 1900 Signed Impressions: Service Date/Time: Monday, February 22, 2016 19:45 - CONCLUSION: 1. Basilar airspace disease, stable to slightly improved from January 24, 2016. Cardiomegaly. Braden Gomez MD Objective Remarks GENERAL: A super morbidly obese female lying in bed awake alert SKIN: Warm and dry. HEAD: Atraumatic. Normocephalic. EYES: Pupils equal and round. No scleral icterus. No injection or drainage. ENT: No nasal bleeding or discharge. Mucous membranes pink and moist. NECK: Trachea midline. Unable to assess JVD. CARDIOVASCULAR: Normal rate, regular rhythm. RESPIRATORY: Breath sounds equal bilaterally. Mild bilateral wheezing GASTROINTESTINAL: Abdomen obese soft, non-tender, nondistended. Well-healed midline scar No guarding. Colostomy left upper quadrant MUSCULOSKELETAL: Extremities without clubbing, cyanosis, or edema. No obvious deformities. NEUROLOGICAL: Awake alert follows commands. Urinary Catheter: Yes Assessment to: Continue Date of Insertion: Feb 23, 2016 Vascular Central Line Catheter: Yes Assessment to: Remove Date of Insertion: Feb 23, 2016 Side: Right Location: Internal, Jugular A/P Assessment and Plan 56-year-old female with AMS with acute hypoxic respiratory failure is likely secondary to septic shock. The patient has had a previous admission approximately 12 weeks ago. Critically ill and in septic shock, now improving. She likely has a significant component of adrenal insufficiency contributing to her shock. Extubated yesterday clinically improving though tenuous Neurologic: Toxic /metabolic encephalopathy Anxiety Agitated Delirium - Discontinue IV fentanyl. Please start home Roxicodone when necessary and amitriptyline daily - Neurontin,and Xanax patient's home med, continued - Seroquel 100mg q8hr - Haldol 5mg iv q4h prn for agitation Respiratory: Acute hypoxic respiratory failure-resolved Acute COPD exacerbation MRSA pneumonia Obstructive sleep apnea -Maintain O2 sat greater than 88-90%, wean FiO2 -Discontinue stress dose steroids, start prednisone 20 mg twice a day -DuoNeb every 4 hours and when necessary -Zyvox for MRSA pneumonia -Consult pulmonology -BiPAP when necessary and strictly at night. Continue EzPAP, [place] Cardiovascular: Hypotension secondary to septic shock-resolved Fluid overload History of hypertension Adrenal Insufficiency -Off norepinephrine -maintain MAP greater than 65 mmHg. -02/28 random cortisol level 7. DC Hydrocortisone 50mg iv q6hr, prednisone 20 BID - Diamox 500 mg IV 3 days started on 03/02/16 Renal: NADIR-resolved Renal insufficiency-resolved -Maintain Ocampo -Creatinine baseline -Strict I/Os FEN/GI: -Regular heart healthy diet, if patient passes bedside swallow -Bowel regimen -Colostomy-adequate output Heme/ID: Multilobar MRSA pneumonia (01/30 discharge hospital) UTI- ESBL klebsiella, Proteus Anemia -ID on board-Dr. Mcwilliams continue Linezolid, imipenem, follow their recommendations Endocrine: Hyperglycemia of Critical Illness Adrenal Insufficiency -- SSI, low scale, q6h -- hydrocortisone 50mg iv q6hr. -change to prednisone as above Prophylaxis: GI Prophylaxis Protonix DVT Prophylaxis -- SCDs Heparin Lines: Right IJ central line Dr. Bundy 02/22/16, peripheral IVs 2-DC central line 03/04. Dc Ocampo left radial art line 02/22-discontinued 02/23 Dispo: remain in the ICU. Level 3 Consult [facility] to assume care in am. (Dr. Paniagua) Oscar Savage MD Mar 04, 2016 07:28 This patient remains critically ill with one or more organ systems which are or may become a threat to life. I have spent in excess of 35 minutes discontinuously in the care and management of this patient. This time is exclusive of procedures, and includes, but is not limited to, evaluation of the patient, review of the medical record, discussions with family, consultants, nursing staff, or respiratory therapy, and documentation in the medical record. Oscar Savage MD Mar 04, 2016 07:28
[2016-03-04] MEDS: CHLORHEXIDINE 0.12% (ORAL KIT) 15 ML CUP MT SCH ×2 (08:00→19:29)
[2016-03-04] MEDS: guaiFENesin SOLUTION 200 MG/10 ML CUP PO PRN (09:19)
[2016-03-04] MEDS: predniSONE 20 MG TAB PO SCH ×2 (09:20→21:13)
[2016-03-04] MEDS: GABAPENTIN 250 MG/5 ML UDC TUBE SCH ×3 (09:20→18:48)
[2016-03-04] MEDS: DOCUSATE SODIUM 100 MG/10 ML UDC G-TUBE SCH ×2 (11:24→21:12)
[2016-03-04] MEDS: LINEZOLID 600 MG PREMIX 300 ML IV SCH (11:24)
[2016-03-04] MEDS: SODIUM CHLORIDE 0.9% FLUSH 5 ML FLUSH IV FLUSH SCH ×2 (11:26→21:12)
--- NOTE | 2016-03-04 12:13 | MB ---
cc: MAGY BHATTI M.D. DATE OF CONSULTATION 03/04/2016 REASON FOR CONSULTATION Sleep apnea. HISTORY OF PRESENT ILLNESS Mrs. Gomez is a 56-year-old female admitted on February 23, 2016, with acute respiratory failure and septic shock. The patient was with respiratory distress and obtundation, initially intubated, mechanically ventilated, subsequently extubated. She is presently alert, in no acute distress. Has no cough, no expectoration, no fever, no chills, no hemoptysis. HER PAST MEDICAL HISTORY 1. COPD. 2. Anxiety depression. 3. Acid reflux. 4. Diverticular disease. 5. Renal calculi. 6. Herniated disk. 7. Sleep apnea in the past; however, has not received C-PAP therapy. 8. Previous colostomy. ALLERGIES PENICILLIN. MEDICATIONS AT PRESENT 1. Amitriptyline. 2. Prednisone 20 mg twice a day. 3. Guaifenesin. 4. Oxycodone as needed. 5. DuoNeb via nebulizer. 6. Seroquel. 7. Haldol as needed. 8. Neurontin. 9. Xanax as needed. 10. Linezolid. FAMILY HISTORY Noncontributory. SYSTEMS REVIEW A 12-point review of systems as per HPI and Past History, otherwise negative. PHYSICAL EXAMINATION Vital Signs: Temperature 98.6, pulse 80, respirations 18, blood pressure 126/60. Oxygen saturation 96% on 3 liters oxygen by nasal cannula. HEENT: Exam unremarkable. Eyes without icterus. Neck: Without adenopathy or thyroid enlargement. Central trachea. Chest: A few scattered rhonchi bilaterally. Cardiac Exam: PMI distant. S1-S2 audible. No murmur, no rub. Abdomen: Lax. Bowel sounds audible. Extremities: Trace edema. LABORATORY DATA Chest x-ray on 03/03/2016 with worsening herniation. CHEST X-RAY on March 02 - The patient did not have endotracheal tube in place at the time. Chest x-ray upon presentation to the emergency room with subsegmental atelectatic change or infiltrate at the bases. White count 9.1 on March 03, hemoglobin 10, hematocrit 33, platelets at 238,000. Sodium 141, potassium 3.8, BUN 14, creatinine 0.4. ABG on March 03 - pH 738, pCO2 55, pO2 87. IMPRESSION 1. Hypoxic and hypercarbic respiratory failure. 2. Morbid obesity. 3. COPD by history. 4. Obstructive sleep apnea versus obesity. 5. Hyperventilation. PLAN The patient is gradually improving. She does have history of obstructive sleep apnea and snores while sleeping, tired and sleepy in the daytime. She has a combination of sleep disorder, breathing, obesity as well as COPD which all may impair her ventilation as well as her oxygenation. Would continue bronchodilators at present. Check her thyroid function as well as pulmonary function and post-discharge would proceed with polysomnographic exam and treatment for underlying obstructive sleep apnea. I do thank you for asking me to partake in Mrs. Renee's care. Sincerely Magy Bhatti MD WWW/ALAINA /8:37 AM /11:56 AM
--- NOTE | 2016-03-04 14:54 | HHI.IDPN ---
Note Infectious Disease Note Patient extubated today. Eating jello. Awake and alert. No complaints. Afebrile. D/W RN. This is a 56-year-old white female who was brought to the emergency department from a assisted facility. The patient reportedly was in respiratory distress and had decreased alertness at the assisted facility. The patient was recently in the hospital in January 2016. She was treated with antibiotics for MRSA pneumonia. She was also treated recently for a UTI with ESBL. She received Macrobid for seven days. After that she was put on Levaquin for presumed stomach infection. She was due to continue antibiotics until 01/30 with the Levaquin. Chest x-ray on admission showed left lower lobe pneumonia. PAST MEDICAL HISTORY 1. COPD. 2. Anxiety. 3. Depression. 4. Gastroesophageal reflux disease. 5. Diverticulitis. 6. Kidney stones. 7. Herniated disc. 8. Sleep apnea. 9. Gastric bypass. 10. Colostomy. 11. Chronic back pain. 12. MRSA pneumonia. ALLERGIES PENICILLIN. Current Medications Medications (Trade) Dose Ordered Sig/Elliot Route PRN Reason Start Time Stop Time Status Last Admin Dose Admin Terbutaline Sulfate (Brethine Inj) 1 mg UNSCH PRN SQ For Extravasation 02/22/16 23:00 IV Flush (NS Flush) 2 ml UNSCH PRN IV FLUSH FLUSH AFTER USING IV ACCESS 02/22/16 22:45 IV Flush (NS Flush) 2 ml BID IV FLUSH 02/23/16 09:00 03/04/16 11:26 Acetaminophen (Tylenol) 650 mg Q6H PRN PO PAIN 1-10 AND/OR FEVER >101F 02/22/16 22:45 02/23/16 12:36 Ondansetron HCl (Zofran Inj) 4 mg Q6H PRN IV NAUSEA OR VOMITING 02/22/16 22:45 Docusate Sodium (Colace Liq) 100 mg Q12H G-TUBE 02/22/16 22:45 03/04/16 11:24 Bisacodyl (Dulcolax Supp) 10 mg DAILY PRN RECTAL CONSTIPATION 02/22/16 22:45 Magnesium Hydroxide (Milk Of Magnesia Liq) 30 ml Q12H PRN PO CONSTIPATION 02/22/16 22:45 Sennosides (Senokot) 17.2 mg Q12H PRN PO CONSTIPATION 02/22/16 22:45 Miscellaneous Information 1 Q361D XX 02/22/16 22:45 Chlorhexidine Gluconate (Chlorhexidine 2% Cloth) Taper DAILY@04 TOP 02/23/16 04:00 02/18/17 03:59 02/29/16 21:23 Chlorhexidine Gluconate 3 pack 3 pack UNSCH PRN TOP HYGIENIC CARE 02/22/16 22:45 Potassium Chloride 100 ml @ 50 mls/hr Q2H PRN IV For Potassium 2.8 - 3.2 mEq/L 02/22/16 22:45 03/02/16 08:15 Potassium Chloride (KCl 20 Meq Premix Inj) 100 ml @ 50 mls/hr Q2H PRN IV For Potassium 2.8 - 3.2 mEq/L 02/22/16 22:45 Potassium Chloride 40 meq 40 meq UNSCH PRN PO/TUBE For Potassium 3.3 - 3.5 mEq/L 02/22/16 22:45 02/25/16 11:57 Potassium Chloride 100 ml @ 25 mls/hr UNSCH PRN IV For Potassium 3.3 - 3.5 mEq/L 02/22/16 22:45 Potassium Chloride 100 ml @ 50 mls/hr Q2H PRN IV For Potassium 3.3 - 3.5 mEq/L 02/22/16 22:45 Magnesium Sulfate/ Sodium Chloride (Magnesium Sulfate Inj/NS Inj) 100 ml @ 50 mls/hr UNSCH PRN IV For Magnesium 0.9 - 1.1 mg/dL 02/22/16 22:45 Magnesium Oxide 800 mg 800 mg UNSCH PRN PO For Magnesium 1.2 - 1.6 mg/dL 02/22/16 22:45 Magnesium Sulfate/ Sodium Chloride (Magnesium Sulfate Inj/NS Inj) 100 ml @ 50 mls/hr UNSCH PRN IV For Magnesium 1.2 - 1.6 mg/dL 02/22/16 22:45 Potassium Phosphate 2000 mg 2,000 mg Q4H PRN PO For Phosphorus < 2.5 mg/dL 02/22/16 22:45 Sodium Phosphate/ Sodium Chloride (Sodium Phosphate Inj/NS 250 ml Inj) 250 ml @ 42 mls/hr UNSCH PRN IV For Phosphorus < 2.5 mg/dL 02/22/16 22:45 02/26/16 08:32 Potassium Chloride (KCl 40 Meq/30 ml Liq) 40 meq UNSCH PRN PO/TUBE SEE LABEL COMMENTS 02/22/16 22:45 Potassium Phosphate 2000 mg 2,000 mg UNSCH PRN PO/TUBE SEE LABEL COMMENTS 02/22/16 22:45 Potassium Phosphate/Sodium Chloride (Potassium Phosphate Inj/NS 250 ml Inj) 260 ml @ 42 mls/hr UNSCH PRN IV SEE LABEL COMMENTS 02/22/16 22:45 Chlorhexidine Gluconate (Peridex 0.12% Liq) 15 ml BID@08,20 MT 02/23/16 08:00 03/03/16 07:59 Dextrose (D50w (Vial) Inj) 25 ml UNSCH PRN IV PUSH HYPOGLYCEMIA-SEE COMMENTS 02/22/16 22:45 Glucagon 1 mg 1 mg UNSCH PRN OTHER HYPOGLYCEMIA-SEE COMMENTS 02/22/16 22:45 Linezolid 300 ml @ 300 mls/hr Q12H IV 02/23/16 12:00 03/04/16 11:24 Imipenem/ Cilastatin Sodium/ Sodium Chloride (Primaxin Inj/NS Inj) 100 ml @ 200 mls/hr Q8H IV 02/23/16 13:00 03/04/16 11:24 Alprazolam (Xanax) 0.5 mg Q4H PRN PO ANXIETY 02/26/16 19:00 03/04/16 01:44 Gabapentin (Neurontin Liq) 300 mg TID TUBE 02/27/16 09:00 03/04/16 11:26 Quetiapine Fumarate (SEROquel) 100 mg Q8HR PO 02/29/16 10:00 03/04/16 13:03 Haloperidol Lactate (Haldol Inj) 5 mg Q4H PRN IV PUSH agitation, delirium 02/29/16 09:15 03/02/16 20:11 Heparin Sodium (Porcine) (Heparin Inj) 5,000 units Q8H SQ 03/01/16 11:00 03/04/16 11:24 Prednisone (Deltasone) 20 mg BID PO 03/04/16 09:00 03/04/16 09:20 Amitriptyline HCl (Elavil) 50 mg HS PO 03/04/16 21:00 Oxycodone HCl (Roxicodone) 15 mg Q4HR PRN PO pain 1-17 07:30 03/04/16 09:20 Guaifenesin (Robitussin Liq) 200 mg Q6H PRN PO COUGH 03/04/16 08:15 03/04/16 09:19 SOCIAL HISTORY No tobacco, alcohol or illicit drugs. FAMILY HISTORY Unable to obtain. REVIEW OF SYSTEMS Unable to obtain. OBJECTIVE: Vital Signs Date Time Temp Pulse Resp B/P Pulse Ox O2 Delivery O2 Flow Rate FiO2 03/04/16 07:55 96 Nasal Cannula 3.00 03/04/16 06:00 95 03/04/16 04:00 87 03/04/16 04:00 98.6 87 20 120/56 95 03/04/16 02:00 84 03/04/16 00:00 98.0 100 22 129/60 97 03/04/16 00:00 100 03/03/16 22:00 86 03/03/16 20:00 98.2 89 22 136/65 92 03/03/16 20:00 89 03/03/16 19:21 94 Nasal Cannula 4.00 03/03/16 18:00 95 03/03/16 16:49 91 Nasal Cannula 4 36 03/03/16 16:00 45 03/03/16 16:00 103 03/03/16 16:00 98.6 80 18 131/62 98 03/03/16 15:06 97 45 03/03/16 03/03/16 03/04/16 15:00 23:00 07:00 Intake Total 1536 ml 410 ml 388 ml Output Total 650 ml 970 ml 1050 ml Balance 886 ml -560 ml -662 ml Intake IV Total 755 ml 410 ml 388 ml Tube Feeding 541 ml Other 240 ml Output Urine Total 650 ml 650 ml 750 ml Stool Total 320 ml 300 ml Laboratory Tests Test 03/03/16 04:41 White Blood Count 9.1 TH/MM3 Red Blood Count 3.97 MIL/MM3 Hemoglobin 10.4 GM/DL Hematocrit 33.5 % Mean Corpuscular Volume 84.5 FL Mean Corpuscular Hemoglobin 26.3 PG Mean Corpuscular Hemoglobin 31.1 % Concent Red Cell Distribution Width 17.3 % Platelet Count 238 TH/MM3 Mean Platelet Volume 10.0 FL Neutrophils (%) (Auto) 85.0 % Lymphocytes (%) (Auto) 9.5 % Monocytes (%) (Auto) 5.0 % Eosinophils (%) (Auto) 0.2 % Basophils (%) (Auto) 0.3 % Neutrophils # (Auto) 7.8 TH/MM3 Lymphocytes # (Auto) 0.9 TH/MM3 Monocytes # (Auto) 0.5 TH/MM3 Eosinophils # (Auto) 0.0 TH/MM3 Basophils # (Auto) 0.0 TH/MM3 CBC Comment AUTO DIFF Differential Comment AUTO DIFF CONFIRMED Platelet Estimate NORMAL Platelet Morphology Comment ENLARGED Laboratory Tests Test 03/02/16 03/03/16 03/04/16 16:03 04:41 10:51 Potassium Level 3.5 MEQ/L 3.8 MEQ/L Sodium Level 141 MEQ/L Chloride Level 102 MEQ/L Carbon Dioxide Level 32.8 MEQ/L Anion Gap 6 MEQ/L Blood Urea Nitrogen 14 MG/DL Creatinine 0.44 MG/DL Estimat Glomerular Filtration 147 ML/MIN Rate Random Glucose 184 MG/DL Calcium Level 8.6 MG/DL Magnesium Level 2.2 MG/DL Total Bilirubin 0.2 MG/DL Aspartate Amino Transf 41 U/L (AST/SGOT) Alanine Aminotransferase 24 U/L (ALT/SGPT) Alkaline Phosphatase 78 U/L Total Protein 4.9 GM/DL Albumin 1.6 GM/DL Thyroid Stimulating Hormone 7.470 uIU/ML 3rd Gen Microbiology Date/Time Procedure Status Source Growth 03/03/16 13:00 Gram Stain - Final Resulted Sputum Endotracheal 03/03/16 13:00 Sputum Culture - Preliminary Resulted Sputum Endotracheal IMMATURE GROWTH - REINCUBATE IMAGING: Chest X-Ray 03/03/16 0600 Signed Impressions: Service Date/Time: Thursday, March 03, 2016 03:10 - CONCLUSION: Slight interval worsening aeration Hussein Trejo MD Chest X-Ray 03/02/16 0000 Signed Impressions: Service Date/Time: Wednesday, March 02, 2016 11:14 - CONCLUSION: ET tube in good position. The central line tip is only over the right medial clavicular head unchanged. Luis Raymond MD Chest X-Ray 02/28/16 0800 Signed Impressions: Service Date/Time: February 08:12 - CONCLUSION: New free air under the left hemidiaphragm. Lines and tubes are stable.. Ivania Ya MD Abdomen/Pelvis CT 02/28/16 0000 Signed Impressions: Service Date/Time: February 14:07 - CONCLUSION: 1. There is no free intraperitoneal air. The chest x-ray finding likely was projectional. 2. Mild diffuse circumferential wall thickening and mild surrounding inflammation of the entire colon to the colostomy. Although nonspecific this could represent a colitis such as C. difficile colitis. There is trace free fluid in the pelvis. 3. Small bilateral pleural effusions with associated compressive atelectasis. Hussein Ortiz MD Chest X-Ray 02/26/16 0000 Signed Impressions: Service Date/Time: Friday, February 26, 2016 09:00 - CONCLUSION: 1. Bibasilar atelectasis and/or infiltrates. 2. Small left pleural effusion. 3. Multiple tubes and lines are in good position. Shankar Graves MD Chest CT 02/23/16 0000 Signed Impressions: Service Date/Time: Tuesday, February 23, 2016 16:35 - CONCLUSION: Bilateral lower lobe consolidated infiltrates or prominent left than the right. ET tube above the yaritza and nasogastric tube passing into the stomach Duncan Friedman MD Abdomen/Pelvis CT 02/23/16 0000 Signed Impressions: Service Date/Time: Tuesday, February 23, 2016 16:35 - CONCLUSION: No acute intra-abdominal process. Colostomy distal left descending colon. Prior cholecystectomy with clips in place . Solitary punctate bilateral renal nonobstructing calyceal stone Duncan Friedman MD PHYSICAL EXAMINATION GENERAL: On the ventilator. Awake. Follows commands. HEENT: No icterus. No conjunctival erythema. Oropharynx intubated. Buccal mucosa is moist. NECK: Supple without adenopathy or swelling. LUNGS: Breath sounds decreased with basilar rhonchi, wheezing. HEART: Regular S1, S2. No audible murmurs. ABDOMEN: Obese. Nontender. Decreased bowel sounds. Left-sided colostomy appears functioning. EXTREMITIES: No clubbing or cyanosis or edema. NEUROLOGIC: Alert on the vent. SKIN: No rash. warm and most. IMPRESSION 1. Sepsis with shock. Still requiring pressors. 2. Urinary tract infection. ESBL Klebsiella, Proteus. 3. Pneumonia. MRSA. Repeat sputum culture pending. 4. Acute respiratory failure. Vent dependent. 5. Acute renal failure. improving. 6. Leukocytosis. Secondary to sepsis. WBC improving. RECOMMENDATIONS 1. Continue Linezolid. 2. Continue Imipenem. 3. Monitor Platelet count. 4. Follow repeat sputum culture. Manny Mcwilliams MD Mar 04, 2016 14:54
[2016-03-04] MEDS: AMITRIPTYLINE HCL 50 MG TAB PO SCH (21:13)
[2016-03-05] VITALS (11 sets, daily range): BP systolic 93–153; BP diastolic 54–67; PULSE 72–96; RESP 14–28; TEMP 97.4–98.6; O2SAT 94–100
[2016-03-05] MEDS: LINEZOLID 600 MG PREMIX 300 ML IV SCH ×3 (01:47→23:00)
[2016-03-05] MEDS: HEPARIN SODIUM - SQ 10,000 UNITS/ML VIAL SQ SCH ×3 (01:47→17:48)
[2016-03-05] MEDS: CHLORHEXIDINE GLUCONATE 2 % 1 PACK (2 CLOTHS) TOP SCH (01:48)
[2016-03-05] MEDS: RESP: ALBUTEROL 2.5 MG/IPRATROPIUM 0.5 MG NEB (SCH) NEB ×6 (03:56→23:47)
[2016-03-05] MEDS: IMIPENEM/CILASTATIN INJ 500 MG in SODIUM CHLORIDE 0.9% INJ 100 ML IV SCH ×3 (05:08→20:23)
[2016-03-05] MEDS: QUEtiapine FUMARATE 100 MG TAB PO SCH ×3 (05:12→20:23)
[2016-03-05 06:08] LABS: ALKALINE PHOSPHATASE 104 U/L (45-117); ALT (GPT) 190 U/L (10-53); ANION GAP 10 MEQ/L (5-15); AST (GOT) 236 U/L (15-37); BICARBONATE 32.6 MEQ/L (21.0-32.0); BLOOD UREA NITROGEN 12 MG/DL (7-18); CHLORIDE 100 MEQ/L (98-107); GLOMERULAR FILTRATION RATE 198 ML/MIN (>89); MAGNESIUM 2.3 MG/DL (1.5-2.5); POTASSIUM 3.5 MEQ/L (3.5-5.1); SODIUM (NA) 143 MEQ/L (136-145); TOTAL BILIRUBIN ADULT 0.4 MG/DL (0.2-1.0)
[2016-03-05] MEDS: INSULIN NovoLIN REGULAR SUPPLEMENTAL SCALE SQ SCH ×4 (06:15→20:23)
--- NOTE | 2016-03-05 06:17 | RADRPT ---
EXAM DATE/TIME: 03/05/2016 04:45 [facility] COMPARISON: CHEST SINGLE AP, March 03, 2016, 3:10. INDICATIONS : Shortness of breath. MEDICAL HISTORY : Chronic obstructive pulmonary disease. Gastroesophageal reflux disease. Diverticulitis. Cardiovas cular disease SURGICAL HISTORY : Colostomy. Gastric bypass. ENCOUNTER: Subsequent ACUITY: 1 week PAIN SCORE: Non-responsive. LOCATION: Bilateral chest FINDINGS: There has been interval extubation. Nasogastric tube has been removed. Right central line has been re moved. There is persistent hazy opacity in the lung bases, left worse than right. Cardiomediastinal c ontours are grossly stable. CONCLUSION: Interval extubation. Stable diminished aeration. Hussein Trejo MD on March 05, 2016 at 6:14 Board Certified Radiologist. This report was verified electronically.
[2016-03-05] MEDS: CHLORHEXIDINE 0.12% (ORAL KIT) 15 ML CUP MT SCH ×2 (07:29→20:00)
[2016-03-05 07:42] LABS: AUTOMATED NEUTROPHIL # 5.2 TH/MM3 (1.8-7.7); BASOPHIL % 0.3 % (0.0-2.0); EOSINOPHIL % 0.2 % (0.0-4.0); HEMATOCRIT 34.9 % (35.0-46.0); LYMPH % 13.8 % (9.0-44.0); LYMPHOCYTE # 0.9 TH/MM3 (1.0-4.8); MEAN CELL VOLUME 84.5 FL (80.0-100.0); MEAN CORPUSCULAR HGB CONC 30.8 % (32.0-36.0); MONO % 4.5 % (0.0-8.0); NEUT % 81.2 % (16.0-70.0); PLATELET COUNT 181 TH/MM3 (150-450); RED BLOOD COUNT 4.13 MIL/MM3 (4.00-5.30); RED CELL DISTRIBUTION WIDTH 17.1 % (11.6-17.2); WHITE BLOOD COUNT 6.4 TH/MM3 (4.0-11.0)
[2016-03-05 07:47] LABS: HEMO FLAGS AUTO DIFF
[2016-03-05] MEDS: predniSONE 20 MG TAB PO SCH ×2 (08:06→20:23)
[2016-03-05] MEDS: GABAPENTIN 250 MG/5 ML UDC TUBE SCH ×3 (08:06→17:48)
[2016-03-05] MEDS: SODIUM CHLORIDE 0.9% FLUSH 5 ML FLUSH IV FLUSH SCH ×2 (08:08→20:23)
[2016-03-05 08:44] LABS: SCAN/DIFF AUTO DIFF CONFIRMED
[2016-03-05] MEDS: DOCUSATE SODIUM 100 MG/10 ML UDC G-TUBE SCH ×2 (11:09→20:24)
--- NOTE | 2016-03-05 13:13 | HHI.PR ---
Subjective Remarks patient feels comfortable denies any pain voiding spontaneously Objective Vitals Vital Signs Date Time Temp Pulse Resp B/P Pulse Ox O2 Delivery O2 Flow Rate FiO2 03/05/16 12:00 96 03/05/16 10:00 91 03/05/16 08:00 98.6 84 24 117/54 96 03/05/16 08:00 75 03/05/16 07:45 99 Nasal Cannula 5.00 03/05/16 06:00 77 03/05/16 04:00 97.8 77 24 153/67 100 03/05/16 04:00 77 03/05/16 04:00 77 03/05/16 02:48 20 03/05/16 02:00 78 03/05/16 00:00 98.0 72 20 93/55 100 03/05/16 00:00 72 03/04/16 22:00 78 03/04/16 20:50 96 Nasal Cannula 5.00 03/04/16 20:00 86 03/04/16 20:00 97.4 86 23 141/64 95 03/04/16 18:00 82 03/04/16 16:00 98.6 81 24 99/50 93 03/04/16 16:00 83 03/04/16 14:00 87 I/O 03/04/16 03/04/16 03/04/16 03/05/16 03/05/16 03/05/16 07:00 15:00 23:00 07:00 15:00 23:00 Intake Total 388 ml 860 ml 840 ml Output Total 1050 ml 400 ml Balance -662 ml 460 ml 840 ml Intake Oral 650 ml 300 ml IV Total 388 ml 210 ml 540 ml Output Urine Total 750 ml 400 ml Stool Total 300 ml # Voids 1 2 3 # Bowel Movements 1 Result Diagram: 03/05/16 0645 03/05/16 0432 Imaging Last Impressions Chest X-Ray 03/05/16 0600 Signed Impressions: Service Date/Time: Saturday, March 05, 2016 04:45 - CONCLUSION: Interval extubation. Stable diminished aeration. Hussein Trejo MD Abdomen/Pelvis CT 02/28/16 0000 Signed Impressions: Service Date/Time: February 14:07 - CONCLUSION: 1. There is no free intraperitoneal air. The chest x-ray finding likely was projectional. 2. Mild diffuse circumferential wall thickening and mild surrounding inflammation of the entire colon to the colostomy. Although nonspecific this could represent a colitis such as C. difficile colitis. There is trace free fluid in the pelvis. 3. Small bilateral pleural effusions with associated compressive atelectasis. Hussein Ortiz MD Chest CT 02/23/16 0000 Signed Impressions: Service Date/Time: Tuesday, February 23, 2016 16:35 - CONCLUSION: Bilateral lower lobe consolidated infiltrates or prominent left than the right. ET tube above the yaritza and nasogastric tube passing into the stomach Duncan Friedman MD Objective Remarks awake and alert, oriented x 3, speech clear anicteric lungs decreased breath sounds, no rales or wheezes, occasional rhonchi regular rhythm abdomen=soft, good bowel sounds, flabby, nontender extremities no edema neuro exam non focal Date of Insertion: Feb 23, 2016 Date of Removal: Mar 04, 2016 Date of Insertion: Feb 23, 2016 Side: Right Location: Internal, Jugular A/P Assessment and Plan 56-year-old female with AMS with acute hypoxic respiratory failure is likely secondary to septic shock. The patient has had a previous admission approximately 12 weeks ago. Critically ill and in septic shock, now improving. She likely has a significant component of adrenal insufficiency contributing to her shock. Extubated yesterday clinically improving though tenuous Neurologic: Toxic /metabolic encephalopathy- Improved Anxiety Agitated Delirium - Discontinue IV fentanyl. restart home Roxicodone when necessary and amitriptyline daily - Neurontin,and Xanax patient's home med, continued - Seroquel 100mg q8hr - Haldol 5mg iv q4h prn for agitation Respiratory: Acute hypoxic respiratory failure-resolved Acute COPD exacerbation MRSA pneumonia Obstructive sleep apnea -Maintain O2 sat greater than 88-90%, wean FiO2 -Discontinue stress dose steroids, start prednisone 20 mg twice a day -DuoNeb every 4 hours and when necessary -Zyvox for MRSA pneumonia and Imipenem. - Pulmonary ff. Infectious Disease ff. -BiPAP when necessary and strictly at night. Continue EzPAP, Acapella Cardiovascular: Hypotension secondary to septic shock-resolved Fluid overload History of hypertension Adrenal Insufficiency -Off norepinephrine -maintain MAP greater than 65 mmHg. -02/28 random cortisol level 7. DC Hydrocortisone 50mg iv q6hr, prednisone 20 BID - Diamox 500 mg IV 3 days started on 03/02/16 - on zyvox and Imipenem Renal: NADIR-resolved Renal insufficiency-resolved -collier removed- voiding spontaneously -Creatinine baseline -Strict I/Os FEN/GI: -Regular heart healthy diet -Bowel regimen -Colostomy-adequate output Heme/ID: Multilobar MRSA pneumonia (01/30 discharge hospital) UTI- ESBL klebsiella, Proteus Anemia -ID on board-Dr. Mcwilliams continue Linezolid, imipenem, Endocrine: Hyperglycemia of Critical Illness Adrenal Insufficiency -- SSI, low scale, q6h -- hydrocortisone 50mg iv q6hr. -change to prednisone as above Prophylaxis: GI Prophylaxis Protonix DVT Prophylaxis -- SCDs Heparin Lines: Right IJ central line Dr. Bundy 02/22/16, peripheral IVs 2-DC central line 03/04. Dc Collier left radial art line 02/22-discontinued 02/23 Dispo: remain in the ICU. Level 3 Consult [facility] to assume care in am. (Dr. Paniagua) Transfer to medical floor- awaiting bed PT/OT consult for deconditioning Baldo Paniagua MD Mar 05, 2016 13:13
[2016-03-05] MEDS ORDERED: POTASSIUM CHLORIDE 10 MEQ CONTROLLED RELEASE TAB PO ONE (13:15)
[2016-03-05] MEDS: AMITRIPTYLINE HCL 50 MG TAB PO SCH (20:23)
[2016-03-06] VITALS (13 sets, daily range): BP systolic 95–133; BP diastolic 50–81; PULSE 83–103; RESP 18–25; TEMP 95.7–98.6; O2SAT 92–96
[2016-03-06] MEDS: HEPARIN SODIUM - SQ 10,000 UNITS/ML VIAL SQ SCH ×3 (03:51→18:53)
[2016-03-06] MEDS: RESP: ALBUTEROL 2.5 MG/IPRATROPIUM 0.5 MG NEB (SCH) NEB ×5 (03:51→19:06)
[2016-03-06] MEDS: IMIPENEM/CILASTATIN INJ 500 MG in SODIUM CHLORIDE 0.9% INJ 100 ML IV SCH ×2 (03:53→12:44)
[2016-03-06] MEDS: CHLORHEXIDINE GLUCONATE 2 % 1 PACK (2 CLOTHS) TOP SCH (04:00)
[2016-03-06] MEDS: QUEtiapine FUMARATE 100 MG TAB PO SCH ×3 (05:15→21:41)
[2016-03-06] MEDS: INSULIN NovoLIN REGULAR SUPPLEMENTAL SCALE SQ SCH ×4 (05:15→21:00)
[2016-03-06] MEDS: CHLORHEXIDINE 0.12% (ORAL KIT) 15 ML CUP MT SCH ×2 (08:00→20:00)
[2016-03-06] MEDS: SODIUM CHLORIDE 0.9% FLUSH 5 ML FLUSH IV FLUSH SCH ×2 (09:00→21:00)
[2016-03-06] MEDS: predniSONE 20 MG TAB PO SCH ×2 (10:03→21:41)
[2016-03-06] MEDS: GABAPENTIN 250 MG/5 ML UDC TUBE SCH ×3 (10:03→18:50)
[2016-03-06] MEDS: DOCUSATE SODIUM 100 MG/10 ML UDC G-TUBE SCH ×2 (10:04→22:45)
--- NOTE | 2016-03-06 10:09 | HHI.PR ---
Subjective Remarks awake and alert no complains of pain nausea or vomiting moves all extremities- limited by weight Objective Vitals Vital Signs Date Time Temp Pulse Resp B/P Pulse Ox O2 Delivery O2 Flow Rate FiO2 03/06/16 08:00 95.7 85 22 122/57 93 03/06/16 07:43 94 Nasal Cannula 4.00 03/06/16 03:51 95 Nasal Cannula 4.00 03/06/16 02:00 83 03/06/16 01:50 97.0 89 18 115/60 95 03/06/16 00:00 83 03/06/16 00:00 97.6 83 25 95/50 96 03/05/16 23:49 94 Nasal Cannula 3.50 03/05/16 20:00 82 03/05/16 20:00 97.4 82 28 124/63 98 03/05/16 16:00 77 03/05/16 16:00 98.3 82 14 116/59 96 03/05/16 12:00 96 03/05/16 12:00 I/O 03/05/16 03/05/16 03/05/16 03/06/16 03/06/16 03/06/16 07:00 15:00 23:00 07:00 15:00 23:00 Intake Total 840 ml 1063 ml 200 ml Output Total 600 ml 300 ml Balance 840 ml 463 ml -100 ml Intake Oral 300 ml 650 ml 100 ml IV Total 540 ml 413 ml 100 ml Output Urine Total 600 ml 300 ml # Voids 3 1 1 1 Result Diagram: 03/05/16 0645 03/05/16 0432 Imaging Last Impressions Chest X-Ray 03/05/16 0600 Signed Impressions: Service Date/Time: Saturday, March 05, 2016 04:45 - CONCLUSION: Interval extubation. Stable diminished aeration. Hussein Trejo MD Abdomen/Pelvis CT 02/28/16 0000 Signed Impressions: Service Date/Time: February 14:07 - CONCLUSION: 1. There is no free intraperitoneal air. The chest x-ray finding likely was projectional. 2. Mild diffuse circumferential wall thickening and mild surrounding inflammation of the entire colon to the colostomy. Although nonspecific this could represent a colitis such as C. difficile colitis. There is trace free fluid in the pelvis. 3. Small bilateral pleural effusions with associated compressive atelectasis. Hussein Ortiz MD Chest CT 02/23/16 0000 Signed Impressions: Service Date/Time: Tuesday, February 23, 2016 16:35 - CONCLUSION: Bilateral lower lobe consolidated infiltrates or prominent left than the right. ET tube above the yaritza and nasogastric tube passing into the stomach Duncan Friedman MD Objective Remarks awake and alert, oriented x 3, speech clear anicteric lungs decreased breath sounds, no rales or wheezes, occasional rhonchi regular rhythm abdomen=soft, good bowel sounds, flabby, nontender, colostomy bag in place extremities no edema neuro exam non focal Date of Insertion: Feb 23, 2016 Date of Removal: Mar 04, 2016 Date of Insertion: Feb 23, 2016 Side: Right Location: Internal, Jugular A/P Assessment and Plan 56-year-old female with AMS with acute hypoxic respiratory failure is likely secondary to septic shock. The patient has had a previous admission approximately 12 weeks ago. Critically ill and in septic shock, now improving. She likely has a significant component of adrenal insufficiency contributing to her shock. Extubated yesterday clinically improving though tenuous Neurologic: Toxic /metabolic encephalopathy- Improved Anxiety Agitated Delirium - Discontinue IV fentanyl. restart home Roxicodone when necessary and amitriptyline daily - Neurontin. - not getting - Xanax- will DC - Seroquel 100mg q8hr - Haldol 5mg iv q4h prn for agitation Respiratory: Acute hypoxic respiratory failure-resolved Acute COPD exacerbation MRSA pneumonia Obstructive sleep apnea suspect -Maintain O2 sat greater than 88-90%, on NC -Discontinue stress dose steroids, start prednisone 20 mg twice a day- 03/05 -DuoNeb every 4 hours and when necessary -Zyvox for MRSA pneumonia and Imipenem. - Pulmonary ff. Infectious Disease ff. -BiPAP when necessary and strictly at night. Continue EzPAP, Acapella - will need sleep studies done as OP- ff up with Dr. Bhatti when DC UTI- ESBL klebsiella, Proteus -ID on board-Dr. Mcwilliams continue Linezolid, imipenem, Cardiovascular: Hypotension secondary to septic shock-resolved Fluid overload History of hypertension Adrenal Insufficiency -Off norepinephrine -maintain MAP greater than 65 mmHg. -02/28 random cortisol level 7. DC Hydrocortisone 50mg iv q6hr, prednisone 20 BID - S/P Diamox 500 mg IV 3 days 03/05/16 - on zyvox and Imipenem Renal: NADIR-resolved Renal insufficiency-resolved -collier removed- voiding spontaneously -Creatinine baseline -Strict I/Os FEN/GI: -Regular heart healthy diet -Bowel regimen -Colostomy-adequate output Endocrine: Hyperglycemia of Critical Illness Adrenal Insufficiency -- SSI, low scale, q6h -- hydrocortisone 50mg iv q6hr. -change to prednisone as above Prophylaxis: GI Prophylaxis Protonix DVT Prophylaxis -- SCDs Heparin Lines: Right IJ central line Dr. Bundy 02/22/16, peripheral IVs 2-DC central line 03/04. Dc Collier left radial art line 02/22-discontinued 02/23 PT/OT consult for deconditioning Baldo Paniagua MD Mar 06, 2016 10:09
[2016-03-06] MEDS: LINEZOLID 600 MG PREMIX 300 ML IV SCH (11:13)
--- NOTE | 2016-03-06 16:16 | HHI.IDPN ---
Note Infectious Disease Note Patient is alert and oriented. Watching TV in bed. No complaint Afebrile. This is a 56-year-old white female who was brought to the emergency department from a retirement facility. The patient reportedly was in respiratory distress and had decreased alertness at the retirement facility. The patient was recently in the hospital in January 2016. She was treated with antibiotics for MRSA pneumonia. She was also treated recently for a UTI with ESBL. She received Macrobid for seven days. After that she was put on Levaquin for presumed stomach infection. She was due to continue antibiotics until 01/30 with the Levaquin. Chest x-ray on admission showed left lower lobe pneumonia. PAST MEDICAL HISTORY 1. COPD. 2. Anxiety. 3. Depression. 4. Gastroesophageal reflux disease. 5. Diverticulitis. 6. Kidney stones. 7. Herniated disc. 8. Sleep apnea. 9. Gastric bypass. 10. Colostomy. 11. Chronic back pain. 12. MRSA pneumonia. ALLERGIES PENICILLIN. Current Medications Medications (Trade) Dose Ordered Sig/Elliot Route PRN Reason Start Time Stop Time Status Last Admin Dose Admin Terbutaline Sulfate (Brethine Inj) 1 mg UNSCH PRN SQ For Extravasation 02/22/16 23:00 IV Flush (NS Flush) 2 ml UNSCH PRN IV FLUSH FLUSH AFTER USING IV ACCESS 02/22/16 22:45 IV Flush (NS Flush) 2 ml BID IV FLUSH 02/23/16 09:00 03/06/16 09:00 Acetaminophen (Tylenol) 650 mg Q6H PRN PO PAIN 1-10 AND/OR FEVER >101F 02/22/16 22:45 02/23/16 12:36 Ondansetron HCl (Zofran Inj) 4 mg Q6H PRN IV NAUSEA OR VOMITING 02/22/16 22:45 Docusate Sodium (Colace Liq) 100 mg Q12H G-TUBE 02/22/16 22:45 03/06/16 10:04 Bisacodyl (Dulcolax Supp) 10 mg DAILY PRN RECTAL CONSTIPATION 02/22/16 22:45 Magnesium Hydroxide (Milk Of Magnesia Liq) 30 ml Q12H PRN PO CONSTIPATION 02/22/16 22:45 Sennosides (Senokot) 17.2 mg Q12H PRN PO CONSTIPATION 02/22/16 22:45 Miscellaneous Information 1 Q361D XX 02/22/16 22:45 Chlorhexidine Gluconate (Chlorhexidine 2% Cloth) Taper DAILY@04 TOP 02/23/16 04:00 02/18/17 03:59 02/29/16 21:23 Chlorhexidine Gluconate (Chlorhexidine 2% Cloth) 3 pack UNSCH PRN TOP HYGIENIC CARE 02/22/16 22:45 Chlorhexidine Gluconate (Peridex 0.12% Liq) 15 ml BID@08,20 MT 02/23/16 08:00 03/06/16 08:00 Dextrose (D50w (Vial) Inj) 25 ml UNSCH PRN IV PUSH HYPOGLYCEMIA-SEE COMMENTS 02/22/16 22:45 Glucagon 1 mg 1 mg UNSCH PRN OTHER HYPOGLYCEMIA-SEE COMMENTS 02/22/16 22:45 Linezolid 300 ml @ 300 mls/hr Q12H IV 02/23/16 12:00 03/06/16 11:13 Imipenem/ Cilastatin Sodium/ Sodium Chloride (Primaxin Inj/NS Inj) 100 ml @ 200 mls/hr Q8H IV 02/23/16 13:00 03/06/16 12:44 Gabapentin (Neurontin Liq) 300 mg TID TUBE 02/27/16 09:00 03/06/16 13:25 Quetiapine Fumarate (SEROquel) 100 mg Q8HR PO 02/29/16 10:00 03/06/16 12:43 Haloperidol Lactate (Haldol Inj) 5 mg Q4H PRN IV PUSH agitation, delirium 02/29/16 09:15 03/02/16 20:11 Heparin Sodium (Porcine) (Heparin Inj) 5,000 units Q8H SQ 03/01/16 11:00 03/06/16 11:00 Prednisone (Deltasone) 20 mg BID PO 03/04/16 09:00 03/06/16 10:03 Amitriptyline HCl (Elavil) 50 mg HS PO 03/04/16 21:00 03/05/16 20:23 Oxycodone HCl (Roxicodone) 15 mg Q4HR PRN PO pain 1-10 03/04/16 07:30 03/06/16 13:25 Guaifenesin (Robitussin Liq) 200 mg Q6H PRN PO COUGH 03/04/16 08:15 03/04/16 09:19 SOCIAL HISTORY No tobacco, alcohol or illicit drugs. FAMILY HISTORY Unable to obtain. REVIEW OF SYSTEMS Unable to obtain. OBJECTIVE: Vital Signs Date Time Temp Pulse Resp B/P Pulse Ox O2 Delivery O2 Flow Rate FiO2 03/06/16 15:18 92 Nasal Cannula 4.00 03/06/16 12:00 98.4 102 24 132/71 92 03/06/16 08:00 95.7 85 22 122/57 93 03/06/16 07:43 94 Nasal Cannula 4.00 03/06/16 03:51 95 Nasal Cannula 4.00 03/06/16 02:00 83 03/06/16 01:50 97.0 89 18 115/60 95 03/06/16 00:00 83 03/06/16 00:00 97.6 83 25 95/50 96 03/05/16 23:49 94 Nasal Cannula 3.50 03/05/16 20:00 82 03/05/16 20:00 97.4 82 28 124/63 98 03/05/16 03/05/16 03/06/16 14:59 22:59 06:59 Intake Total 1063 ml 200 ml Output Total 600 ml 300 ml Balance 463 ml -100 ml Intake Oral 650 ml 100 ml IV Total 413 ml 100 ml Output Urine Total 600 ml 300 ml # Voids 1 1 1 Laboratory Tests Test 03/05/16 06:45 White Blood Count 6.4 TH/MM3 Red Blood Count 4.13 MIL/MM3 Hemoglobin 10.7 GM/DL Hematocrit 34.9 % Mean Corpuscular Volume 84.5 FL Mean Corpuscular Hemoglobin 26.0 PG Mean Corpuscular Hemoglobin 30.8 % Concent Red Cell Distribution Width 17.1 % Platelet Count 181 TH/MM3 Mean Platelet Volume 9.6 FL Neutrophils (%) (Auto) 81.2 % Lymphocytes (%) (Auto) 13.8 % Monocytes (%) (Auto) 4.5 % Eosinophils (%) (Auto) 0.2 % Basophils (%) (Auto) 0.3 % Neutrophils # (Auto) 5.2 TH/MM3 Lymphocytes # (Auto) 0.9 TH/MM3 Monocytes # (Auto) 0.3 TH/MM3 Eosinophils # (Auto) 0.0 TH/MM3 Basophils # (Auto) 0.0 TH/MM3 CBC Comment AUTO DIFF Differential Comment AUTO DIFF CONFIRMED Laboratory Tests Test 03/05/16 04:32 Sodium Level 143 MEQ/L Potassium Level 3.5 MEQ/L Chloride Level 100 MEQ/L Carbon Dioxide Level 32.6 MEQ/L Anion Gap 10 MEQ/L Blood Urea Nitrogen 12 MG/DL Creatinine 0.34 MG/DL Estimat Glomerular Filtration 198 ML/MIN Rate Random Glucose 96 MG/DL Calcium Level 8.7 MG/DL Magnesium Level 2.3 MG/DL Total Bilirubin 0.4 MG/DL Aspartate Amino Transf 236 U/L (AST/SGOT) Alanine Aminotransferase 190 U/L (ALT/SGPT) Alkaline Phosphatase 104 U/L Total Protein 4.5 GM/DL Albumin 1.8 GM/DL IMAGING: Chest X-Ray 03/05/16 0600 Signed Impressions: Service Date/Time: Saturday, March 05, 2016 04:45 - CONCLUSION: Interval extubation. Stable diminished aeration. Hussein Trejo MD Chest X-Ray 03/03/16 0600 Signed Impressions: Service Date/Time: Thursday, March 03, 2016 03:10 - CONCLUSION: Slight interval worsening aeration Hussein Trejo MD Chest X-Ray 03/02/16 0000 Signed Impressions: Service Date/Time: Wednesday, March 02, 2016 11:14 - CONCLUSION: ET tube in good position. The central line tip is only over the right medial clavicular head unchanged. Luis Raymond MD Chest X-Ray 02/28/16 0800 Signed Impressions: Service Date/Time: February 08:12 - CONCLUSION: New free air under the left hemidiaphragm. Lines and tubes are stable.. Ivania Ya MD Abdomen/Pelvis CT 02/28/16 0000 Signed Impressions: Service Date/Time: February 14:07 - CONCLUSION: 1. There is no free intraperitoneal air. The chest x-ray finding likely was projectional. 2. Mild diffuse circumferential wall thickening and mild surrounding inflammation of the entire colon to the colostomy. Although nonspecific this could represent a colitis such as C. difficile colitis. There is trace free fluid in the pelvis. 3. Small bilateral pleural effusions with associated compressive atelectasis. Hussein Ortiz MD Chest X-Ray 02/26/16 0000 Signed Impressions: Service Date/Time: Friday, February 26, 2016 09:00 - CONCLUSION: 1. Bibasilar atelectasis and/or infiltrates. 2. Small left pleural effusion. 3. Multiple tubes and lines are in good position. Shankar Graves MD Chest CT 02/23/16 0000 Signed Impressions: Service Date/Time: Tuesday, February 23, 2016 16:35 - CONCLUSION: Bilateral lower lobe consolidated infiltrates or prominent left than the right. ET tube above the yaritza and nasogastric tube passing into the stomach Duncan Friedman MD Abdomen/Pelvis CT 02/23/16 0000 Signed Impressions: Service Date/Time: Tuesday, February 23, 2016 16:35 - CONCLUSION: No acute intra-abdominal process. Colostomy distal left descending colon. Prior cholecystectomy with clips in place . Solitary punctate bilateral renal nonobstructing calyceal stone Duncan Friedman MD PHYSICAL EXAMINATION GENERAL: On the ventilator. Awake. Follows commands. HEENT: No icterus. No conjunctival erythema. Oropharynx intubated. Buccal mucosa is moist. NECK: Supple without adenopathy or swelling. LUNGS: Breath sounds decreased with basilar rhonchi, wheezing. HEART: Regular S1, S2. No audible murmurs. ABDOMEN: Obese. Nontender. Decreased bowel sounds. Left-sided colostomy appears functioning. EXTREMITIES: No clubbing or cyanosis or edema. NEUROLOGIC: Alert on the vent. SKIN: No rash. warm and most. IMPRESSION 1. Sepsis with shock. Still requiring pressors. 2. Urinary tract infection. ESBL Klebsiella, Proteus. 3. Pneumonia. MRSA. Repeat sputum culture pending. 4. Acute respiratory failure. Vent dependent. 5. Acute renal failure. improving. 6. Leukocytosis. Secondary to sepsis. WBC improving. RECOMMENDATIONS 1. Change Linezolid to PO. Give another 7 days (until 03/13/16) if her platelets are adequate. 2. Stop Imipenem. 3. Monitor Platelet count. Manny Mcwilliams MD Mar 06, 2016 16:16
[2016-03-06] MEDS: LINEZOLID 600 MG TAB PO SCH (21:41)
[2016-03-06] MEDS: AMITRIPTYLINE HCL 50 MG TAB PO SCH (21:41)
[2016-03-07] VITALS (10 sets, daily range): BP systolic 128–140; BP diastolic 61–70; PULSE 79–109; RESP 18–21; TEMP 95.6–96.9; O2SAT 91–97
[2016-03-07] MEDS: RESP: ALBUTEROL 2.5 MG/IPRATROPIUM 0.5 MG NEB (SCH) NEB ×3 (01:13→08:00)
[2016-03-07] MEDS: HEPARIN SODIUM - SQ 10,000 UNITS/ML VIAL SQ SCH ×3 (01:50→18:31)
[2016-03-07] MEDS: CHLORHEXIDINE GLUCONATE 2 % 1 PACK (2 CLOTHS) TOP SCH (03:23)
[2016-03-07] MEDS: QUEtiapine FUMARATE 100 MG TAB PO SCH ×3 (05:10→22:08)
[2016-03-07] MEDS: INSULIN NovoLIN REGULAR SUPPLEMENTAL SCALE SQ SCH ×3 (05:10→20:07)
[2016-03-07] MEDS: CHLORHEXIDINE 0.12% (ORAL KIT) 15 ML CUP MT SCH ×2 (08:00→20:00)
[2016-03-07] MEDS: SODIUM CHLORIDE 0.9% FLUSH 5 ML FLUSH IV FLUSH SCH ×2 (09:00→20:05)
--- NOTE | 2016-03-07 09:16 | HHI.PR ---
Subjective Remarks states poor po appetites no pain complains Objective Vitals Vital Signs Date Time Temp Pulse Resp B/P Pulse Ox O2 Delivery O2 Flow Rate FiO2 03/07/16 08:00 95.6 82 21 132/62 92 03/07/16 04:00 96.2 79 18 131/70 97 03/07/16 01:14 94 Nasal Cannula 5.00 03/06/16 23:00 97.1 91 18 133/74 95 03/06/16 20:45 98.6 103 19 132/63 92 03/06/16 19:00 94 03/06/16 16:00 97.7 95 22 120/81 96 03/06/16 15:18 92 Nasal Cannula 4.00 03/06/16 12:00 98.4 102 24 132/71 92 I/O 03/06/16 03/06/16 03/06/16 03/07/16 03/07/16 03/07/16 07:00 15:00 23:00 07:00 15:00 23:00 Intake Total 600 ml 800 ml Output Total 0 ml Balance 600 ml 800 ml Intake Oral 600 ml 800 ml Stool Total 0 ml # Voids 1 3 1 4 # Bowel Movements 1 1 Result Diagram: 03/05/16 0645 03/05/16 0432 Imaging Last Impressions Chest X-Ray 03/05/16 0600 Signed Impressions: Service Date/Time: Saturday, March 05, 2016 04:45 - CONCLUSION: Interval extubation. Stable diminished aeration. Hussein Trejo MD Abdomen/Pelvis CT 02/28/16 0000 Signed Impressions: Service Date/Time: February 14:07 - CONCLUSION: 1. There is no free intraperitoneal air. The chest x-ray finding likely was projectional. 2. Mild diffuse circumferential wall thickening and mild surrounding inflammation of the entire colon to the colostomy. Although nonspecific this could represent a colitis such as C. difficile colitis. There is trace free fluid in the pelvis. 3. Small bilateral pleural effusions with associated compressive atelectasis. Hussein Ortiz MD Chest CT 02/23/16 0000 Signed Impressions: Service Date/Time: Tuesday, February 23, 2016 16:35 - CONCLUSION: Bilateral lower lobe consolidated infiltrates or prominent left than the right. ET tube above the yaritza and nasogastric tube passing into the stomach Duncan Friedman MD Objective Remarks awake and alert, oriented x 3, speech clear anicteric lungs decreased breath sounds, no rales or wheezes, no rhonchi regular rhythm abdomen=soft, good bowel sounds, flabby, nontender, colostomy bag in place extremities no edema, moves all extremities- neuro exam non focal Date of Insertion: Feb 23, 2016 Date of Removal: Mar 04, 2016 Date of Insertion: Feb 23, 2016 Side: Right Location: Internal, Jugular A/P Assessment and Plan 56-year-old female with AMS with acute hypoxic respiratory failure is likely secondary to septic shock. The patient has had a previous admission approximately 12 weeks ago. Critically ill and in septic shock, now improving. She likely has a significant component of adrenal insufficiency contributing to her shock. Extubated yesterday clinically improving though tenuous Neurologic: Toxic /metabolic encephalopathy- Improved Anxiety Agitated Delirium - on Roxicodone when necessary and amitriptyline daily - Neurontin. - Seroquel 100mg q8hr - Haldol 5mg iv q4h prn for agitation Respiratory: Acute hypoxic respiratory failure-resolved Acute COPD exacerbation MRSA pneumonia Obstructive sleep apnea suspect -Maintain O2 sat greater than 88-90%, on NC -Discontinue stress dose steroids, start prednisone 20 mg twice a day- 03/05- gradual taper -DuoNeb every 4 hours and when necessary -Zyvox for MRSA pneumonia - Pulmonary ff. Infectious Disease ff. -BiPAP when necessary and strictly at night. Continue EzPAP, Acapella - will need sleep studies done as OP- ff up with Dr. Bhatti when DC UTI- ESBL klebsiella, Proteus -ID on board-Dr. Mcwilliams continue Linezolid, imipenem, Cardiovascular: Hypotension secondary to septic shock-resolved Fluid overload History of hypertension Adrenal Insufficiency -Off norepinephrine -maintain MAP greater than 65 mmHg. -02/28 random cortisol level 7. DC Hydrocortisone 50mg iv q6hr, prednisone 20 BID - S/P Diamox 500 mg IV 3 days 03/05/16 - on zyvox and Imipenem Renal: NADIR-resolved Renal insufficiency-resolved -collier removed- voiding spontaneously -Creatinine baseline -Strict I/Os FEN/GI: -Regular heart healthy diet -Bowel regimen -Colostomy-adequate output Endocrine: Hyperglycemia of Critical Illness Adrenal Insufficiency -- SSI, low scale, q6h -- hydrocortisone 50mg iv q6hr. -change to prednisone as above Prophylaxis: GI Prophylaxis Protonix DVT Prophylaxis -- SCDs Heparin Lines: Right IJ central line Dr. Bundy 02/22/16, peripheral IVs 2-DC central line 03/04. Dc Collier left radial art line 02/22-discontinued 02/23 PT/OT consult for deconditioning- daily DC planning will need SNF Baldo Paniagua MD Mar 07, 2016 09:16
[2016-03-07] MEDS: predniSONE 20 MG TAB PO SCH ×2 (09:25→20:05)
[2016-03-07] MEDS: LINEZOLID 600 MG TAB PO SCH ×2 (09:25→20:05)
[2016-03-07] MEDS: GABAPENTIN 250 MG/5 ML UDC TUBE SCH ×3 (09:26→18:30)
[2016-03-07] MEDS: DOCUSATE SODIUM 100 MG/10 ML UDC G-TUBE SCH ×2 (09:26→22:09)
[2016-03-07] MEDS: RESP: ALBUTEROL 2.5 MG/IPRATROPIUM 0.5 MG NEB (PRN) INH (15:46)
[2016-03-07] MEDS: AMITRIPTYLINE HCL 50 MG TAB PO SCH (20:05)
[2016-03-07] MEDS: guaiFENesin SOLUTION 200 MG/10 ML CUP PO PRN (22:08)
[2016-03-08] VITALS (7 sets, daily range): BP systolic 125–145; BP diastolic 53–80; PULSE 83–92; RESP 16–20; TEMP 97.2–98.6; O2SAT 90–96
[2016-03-08] MEDS: HEPARIN SODIUM - SQ 10,000 UNITS/ML VIAL SQ SCH ×3 (02:28→17:18)
[2016-03-08] MEDS: CHLORHEXIDINE GLUCONATE 2 % 1 PACK (2 CLOTHS) TOP SCH ×2 (02:28→20:08)
[2016-03-08] MEDS: QUEtiapine FUMARATE 100 MG TAB PO SCH ×3 (05:26→20:07)
[2016-03-08] MEDS: INSULIN NovoLIN REGULAR SUPPLEMENTAL SCALE SQ SCH ×4 (06:10→20:08)
[2016-03-08] MEDS: CHLORHEXIDINE 0.12% (ORAL KIT) 15 ML CUP MT SCH ×2 (08:00→20:00)
[2016-03-08] MEDS: GABAPENTIN 250 MG/5 ML UDC TUBE SCH ×3 (08:17→17:18)
[2016-03-08] MEDS: predniSONE 20 MG TAB PO SCH ×2 (08:17→20:07)
[2016-03-08] MEDS: SODIUM CHLORIDE 0.9% FLUSH 5 ML FLUSH IV FLUSH SCH ×2 (08:17→20:09)
[2016-03-08] MEDS: LINEZOLID 600 MG TAB PO SCH ×2 (08:18→20:07)
[2016-03-08 08:24] LABS: HEMATOCRIT 35.4 % (35.0-46.0); MEAN CELL VOLUME 85.7 FL (80.0-100.0); MEAN CORPUSCULAR HEMOGLOBIN 26.3 PG (27.0-34.0); MEAN CORPUSCULAR HGB CONC 30.7 % (32.0-36.0); PLATELET COUNT 185 TH/MM3 (150-450); RED BLOOD COUNT 4.13 MIL/MM3 (4.00-5.30); RED CELL DISTRIBUTION WIDTH 18.8 % (11.6-17.2); REVIEW FLAG FINAL; WHITE BLOOD COUNT 6.7 TH/MM3 (4.0-11.0)
--- NOTE | 2016-03-08 10:40 | HHI.PR ---
Subjective Remarks awake and alert no nausea or vomiting poor po appetite d/w RT- patient has not been requiring BiPAP for past 7 days Objective Vitals Vital Signs Date Time Temp Pulse Resp B/P Pulse Ox O2 Delivery O2 Flow Rate FiO2 03/08/16 07:59 97.8 86 17 139/78 96 03/08/16 04:18 97.2 90 16 145/70 96 03/08/16 03:21 20 03/08/16 00:01 98.1 92 19 125/64 92 03/07/16 20:25 96.3 109 21 128/61 92 03/07/16 20:00 86 03/07/16 19:41 94 Nasal Cannula 5.00 03/07/16 16:00 96.9 90 20 140/66 94 03/07/16 12:09 96.9 89 20 131/64 93 03/07/16 11:35 91 Nasal Cannula 5.00 I/O 03/07/16 03/07/16 03/07/16 03/08/16 03/08/16 03/08/16 07:00 15:00 23:00 07:00 15:00 23:00 Intake Total 480 ml 680 ml Output Total 1500 ml Balance 480 ml -820 ml Intake Oral 480 ml 680 ml IV Total 0 ml Output Urine Total 1500 ml Stool Total 0 ml # Voids 4 6 5 5 # Bowel Movements 1 0 Result Diagram: 03/08/16 0650 03/05/16 0432 Imaging Last Impressions Chest X-Ray 03/05/16 0600 Signed Impressions: Service Date/Time: Saturday, March 05, 2016 04:45 - CONCLUSION: Interval extubation. Stable diminished aeration. Hussein Trejo MD Abdomen/Pelvis CT 02/28/16 0000 Signed Impressions: Service Date/Time: February 14:07 - CONCLUSION: 1. There is no free intraperitoneal air. The chest x-ray finding likely was projectional. 2. Mild diffuse circumferential wall thickening and mild surrounding inflammation of the entire colon to the colostomy. Although nonspecific this could represent a colitis such as C. difficile colitis. There is trace free fluid in the pelvis. 3. Small bilateral pleural effusions with associated compressive atelectasis. Hussein Ortiz MD Chest CT 02/23/16 0000 Signed Impressions: Service Date/Time: Tuesday, February 23, 2016 16:35 - CONCLUSION: Bilateral lower lobe consolidated infiltrates or prominent left than the right. ET tube above the yaritza and nasogastric tube passing into the stomach Duncan Friedman MD Objective Remarks awake and alert, oriented x 3, speech clear anicteric lungs decreased breath sounds, no rales or wheezes, no rhonchi regular rhythm abdomen=soft, good bowel sounds, flabby, nontender, colostomy bag in place- + brown stools extremities no edema, moves all extremities- neuro exam non focal Date of Insertion: Feb 23, 2016 Date of Removal: Mar 04, 2016 Date of Insertion: Feb 23, 2016 Side: Right Location: Internal, Jugular A/P Assessment and Plan 56-year-old female with AMS with acute hypoxic respiratory failure is likely secondary to septic shock. The patient has had a previous admission approximately 12 weeks ago. Critically ill and in septic shock, now improving. She likely has a significant component of adrenal insufficiency contributing to her shock. Extubated yesterday clinically improving though tenuous Neurologic: Toxic /metabolic encephalopathy- Improved Anxiety Agitated Delirium - on Roxicodone when necessary and amitriptyline daily - Neurontin. - Seroquel 100mg q8hr Respiratory: Acute hypoxic respiratory failure-resolved Acute COPD exacerbation MRSA pneumonia Obstructive sleep apnea suspect -Maintain O2 sat greater than 88-90%, on NC -Discontinue stress dose steroids, decrase Prednisone to 10 mg po bid 03/08 -DuoNeb every 4 hours and when necessary -Zyvox for MRSA pneumonia till 03/13. FF platelet ct - Pulmonary ff. Infectious Disease ff. -BiPAP when necessary and strictly at night. Continue EzPAP, Acapella - will need sleep studies done as OP- ff up with Dr. Bhatti when DC UTI- ESBL klebsiella, Proteus -ID on board-Dr. Mcwilliams continue Linezolid, Cardiovascular: Hypotension secondary to septic shock-resolved Fluid overload History of hypertension Adrenal Insufficiency -Off norepinephrine -maintain MAP greater than 65 mmHg. - on Prednisone - on zyvox Renal: NADIR-resolved Renal insufficiency-resolved -collier removed- voiding spontaneously -Creatinine baseline -Strict I/Os FEN/GI: -Regular heart healthy diet -Bowel regimen -Colostomy-adequate output Endocrine: Hyperglycemia of Critical Illness Adrenal Insufficiency -- SSI, low scale, q6h -- - on po Prednisone Prophylaxis: GI Prophylaxis Protonix DVT Prophylaxis -- SCDs Heparin Lines: Right IJ central line Dr. Bundy 02/22/16, peripheral IVs 2-DC central line 03/04. Dc Collier left radial art line 02/22-discontinued 02/23 PT/OT consult for deconditioning- daily DC planning will need SNF- Baldo Paniagua MD Mar 08, 2016 10:40
[2016-03-08] MEDS: DOCUSATE SODIUM 100 MG/10 ML UDC G-TUBE SCH ×2 (10:55→20:10)
[2016-03-08] MEDS: AMITRIPTYLINE HCL 50 MG TAB PO SCH (20:08)
[2016-03-09] VITALS (8 sets, daily range): BP systolic 115–137; BP diastolic 53–78; PULSE 72–101; RESP 16–22; TEMP 96–97.8; O2SAT 89–95
[2016-03-09] MEDS: QUEtiapine FUMARATE 100 MG TAB PO SCH ×3 (04:56→20:54)
[2016-03-09] MEDS: HEPARIN SODIUM - SQ 10,000 UNITS/ML VIAL SQ SCH ×3 (04:56→17:30)
[2016-03-09] MEDS: INSULIN NovoLIN REGULAR SUPPLEMENTAL SCALE SQ SCH ×4 (04:59→21:00)
[2016-03-09] MEDS: CHLORHEXIDINE 0.12% (ORAL KIT) 15 ML CUP MT SCH ×2 (07:54→20:00)
[2016-03-09] MEDS: SODIUM CHLORIDE 0.9% FLUSH 5 ML FLUSH IV FLUSH SCH ×2 (08:00→21:02)
[2016-03-09] MEDS: predniSONE 20 MG TAB PO SCH ×2 (08:00→20:54)
[2016-03-09] MEDS: GABAPENTIN 250 MG/5 ML UDC TUBE SCH ×3 (08:00→16:14)
[2016-03-09] MEDS: LINEZOLID 600 MG TAB PO SCH ×2 (08:00→20:54)
--- NOTE | 2016-03-09 10:06 | HHI.PR ---
Subjective Remarks good po no diarrhea complains of urinary frequency Objective Vitals Vital Signs Date Time Temp Pulse Resp B/P Pulse Ox O2 Delivery O2 Flow Rate FiO2 03/09/16 08:00 96.1 85 16 115/53 91 03/09/16 08:00 85 03/09/16 06:15 18 03/09/16 04:00 97.8 86 22 131/62 95 03/09/16 00:00 96.2 97 20 136/60 94 03/08/16 20:00 98.6 87 18 135/62 93 03/08/16 15:05 97.2 86 20 127/53 93 03/08/16 11:05 97.3 83 20 145/80 90 I/O 03/08/16 03/08/16 03/08/16 03/09/16 03/09/16 03/09/16 07:00 15:00 23:00 07:00 15:00 23:00 Intake Total 680 ml 480 ml Output Total 1500 ml Balance -820 ml 480 ml Intake Oral 680 ml 480 ml IV Total 0 ml Output Urine Total 1500 ml Stool Total 0 ml # Voids 5 4 3 # Bowel Movements 0 Result Diagram: 03/08/16 0650 03/05/16 0432 Imaging Last Impressions Chest X-Ray 03/05/16 0600 Signed Impressions: Service Date/Time: Saturday, March 05, 2016 04:45 - CONCLUSION: Interval extubation. Stable diminished aeration. Hussein Trejo MD Abdomen/Pelvis CT 02/28/16 0000 Signed Impressions: Service Date/Time: February 14:07 - CONCLUSION: 1. There is no free intraperitoneal air. The chest x-ray finding likely was projectional. 2. Mild diffuse circumferential wall thickening and mild surrounding inflammation of the entire colon to the colostomy. Although nonspecific this could represent a colitis such as C. difficile colitis. There is trace free fluid in the pelvis. 3. Small bilateral pleural effusions with associated compressive atelectasis. Hussein Ortiz MD Chest CT 02/23/16 0000 Signed Impressions: Service Date/Time: Tuesday, February 23, 2016 16:35 - CONCLUSION: Bilateral lower lobe consolidated infiltrates or prominent left than the right. ET tube above the yaritza and nasogastric tube passing into the stomach Duncan Friedman MD Objective Remarks awake and alert, oriented x 3, speech clear anicteric lungs decreased breath sounds, no rales or wheezes, no rhonchi regular rhythm abdomen=soft, good bowel sounds, flabby, nontender, colostomy bag in place- + brown stools extremities no edema, moves all extremities- neuro exam non focal Date of Insertion: Feb 23, 2016 Date of Removal: Mar 04, 2016 Date of Insertion: Feb 23, 2016 Side: Right Location: Internal, Jugular A/P Assessment and Plan 56-year-old female with AMS with acute hypoxic respiratory failure is likely secondary to septic shock. The patient has had a previous admission approximately 12 weeks ago. Critically ill and in septic shock, now improving. She likely has a significant component of adrenal insufficiency contributing to her shock. Extubated yesterday clinically improving though tenuous Neurologic: Toxic /metabolic encephalopathy- Improved Anxiety Agitated Delirium - on Roxicodone when necessary and amitriptyline daily - Neurontin. - Seroquel 100mg q8hr Respiratory: Acute hypoxic respiratory failure-resolved Acute COPD exacerbation MRSA pneumonia Obstructive sleep apnea suspect -Maintain O2 sat greater than 88-90%, on NC -Discontinue stress dose steroids, decrase Prednisone to 10 mg po bid 03/08 -DuoNeb every 4 hours and when necessary -Zyvox for MRSA pneumonia till 03/13. FF platelet ct - Pulmonary ff. Infectious Disease ff. -BiPAP when necessary and strictly at night. Continue EzPAP, Acapella - will need sleep studies done as OP- ff up with Dr. Bhatti when DC UTI- ESBL klebsiella, Proteus -ID on board-Dr. Mcwilliams. on Linezolid, - complains of frequency- will get a postvoiding residual urine volume to check for retention Cardiovascular: Hypotension secondary to septic shock-resolved Fluid overload History of hypertension Adrenal Insufficiency -Off norepinephrine -maintain MAP greater than 65 mmHg. - on Prednisone - on zyvox Renal: NADIR-resolved Renal insufficiency-resolved -collier removed- voiding spontaneously -Creatinine baseline -Strict I/Os FEN/GI: -Regular heart healthy diet -Bowel regimen -Colostomy-adequate output Endocrine: Hyperglycemia of Critical Illness Adrenal Insufficiency -- SSI, low scale, q6h -- - on po Prednisone Prophylaxis: GI Prophylaxis Protonix DVT Prophylaxis -- SCDs Heparin Lines: Right IJ central line Dr. Bundy 02/22/16, peripheral IVs 2-DC central line 03/04. Dc Collier left radial art line 02/22-discontinued 02/23 PT/OT consult for deconditioning- daily DC planning will need SNF- - hopefully Thursday- Baldo Landeros MD Mar 09, 2016 10:06
[2016-03-09] MEDS: DOCUSATE SODIUM 100 MG/10 ML UDC G-TUBE SCH ×2 (11:09→21:02)
[2016-03-09] MEDS: RESP: ALBUTEROL 2.5 MG/IPRATROPIUM 0.5 MG NEB (PRN) INH (12:00)
[2016-03-09] MEDS: ACETAMINOPHEN 325 MG TAB PO PRN (16:13)
[2016-03-09] MEDS: AMITRIPTYLINE HCL 50 MG TAB PO SCH (20:54)
[2016-03-09] MEDS: CHLORHEXIDINE GLUCONATE 2 % 1 PACK (2 CLOTHS) TOP SCH (21:03)
[2016-03-10] MEDS: RESP: ALBUTEROL 2.5 MG/IPRATROPIUM 0.5 MG NEB (PRN) INH (02:31)
[2016-03-10] MEDS: HEPARIN SODIUM - SQ 10,000 UNITS/ML VIAL SQ SCH ×2 (03:22→09:40)
[2016-03-10] MEDS: QUEtiapine FUMARATE 100 MG TAB PO SCH ×2 (03:58→13:09)
[2016-03-10 04:43] VITALS: BP 119/58; PULSE 88; RESP 22; TEMP 96.6; O2SAT 92
[2016-03-10] MEDS: INSULIN NovoLIN REGULAR SUPPLEMENTAL SCALE SQ SCH ×2 (06:34→11:00)
[2016-03-10 08:00] VITALS: BP 112/54; PULSE 89; RESP 22; TEMP 96.2; O2SAT 94
[2016-03-10] MEDS: CHLORHEXIDINE 0.12% (ORAL KIT) 15 ML CUP MT SCH (08:00)
[2016-03-10] MEDS: LINEZOLID 600 MG TAB PO SCH (09:27)
[2016-03-10] MEDS: predniSONE 20 MG TAB PO SCH (09:28)
[2016-03-10] MEDS: SODIUM CHLORIDE 0.9% FLUSH 5 ML FLUSH IV FLUSH SCH (09:28)
[2016-03-10] MEDS: GABAPENTIN 250 MG/5 ML UDC TUBE SCH ×2 (09:29→13:08)
[2016-03-10] MEDS: DOCUSATE SODIUM 100 MG/10 ML UDC G-TUBE SCH (09:32)
--- NOTE | 2016-03-10 09:53 | HHI.PR ---
Subjective Remarks patient doing well no complains Objective Vitals Vital Signs Date Time Temp Pulse Resp B/P Pulse Ox O2 Delivery O2 Flow Rate FiO2 03/10/16 08:00 96.2 89 22 112/54 94 03/10/16 06:34 16 03/10/16 04:43 96.6 88 22 119/58 92 03/09/16 23:34 97.4 101 22 137/58 92 03/09/16 20:42 Nasal Cannula 5.00 03/09/16 20:36 97.6 84 22 137/61 90 03/09/16 16:00 96.6 72 19 121/78 93 03/09/16 12:00 96.0 75 18 118/78 89 I/O 03/09/16 03/09/16 03/09/16 03/10/16 03/10/16 03/10/16 07:00 15:00 23:00 07:00 15:00 23:00 Intake Total 480 ml Output Total 200 ml Balance 480 ml -200 ml Intake Oral 480 ml Stool Total 200 ml # Voids 3 4 1 2 # Bowel Movements 0 0 0 Result Diagram: 03/08/16 0650 Imaging Last Impressions Chest X-Ray 03/05/16 0600 Signed Impressions: Service Date/Time: Saturday, March 05, 2016 04:45 - CONCLUSION: Interval extubation. Stable diminished aeration. Hussein Trejo MD Abdomen/Pelvis CT 02/28/16 0000 Signed Impressions: Service Date/Time: February 14:07 - CONCLUSION: 1. There is no free intraperitoneal air. The chest x-ray finding likely was projectional. 2. Mild diffuse circumferential wall thickening and mild surrounding inflammation of the entire colon to the colostomy. Although nonspecific this could represent a colitis such as C. difficile colitis. There is trace free fluid in the pelvis. 3. Small bilateral pleural effusions with associated compressive atelectasis. Hussein Ortiz MD Chest CT 02/23/16 0000 Signed Impressions: Service Date/Time: Tuesday, February 23, 2016 16:35 - CONCLUSION: Bilateral lower lobe consolidated infiltrates or prominent left than the right. ET tube above the yaritza and nasogastric tube passing into the stomach Duncan Friedman MD Objective Remarks awake and alert, oriented x 3, speech clear anicteric lungs decreased breath sounds, no rales or wheezes, no rhonchi regular rhythm abdomen=soft, good bowel sounds, flabby, nontender, colostomy bag in place- + brown stools extremities no edema, moves all extremities- neuro exam non focal Date of Insertion: Feb 23, 2016 Date of Removal: Mar 04, 2016 Date of Insertion: Feb 23, 2016 Side: Right Location: Internal, Jugular A/P Assessment and Plan 56-year-old female with AMS with acute hypoxic respiratory failure is likely secondary to septic shock. The patient has had a previous admission approximately 12 weeks ago. Critically ill and in septic shock, now improving. She likely has a significant component of adrenal insufficiency contributing to her shock. Extubated yesterday clinically improving though tenuous Neurologic: Toxic /metabolic encephalopathy- Improved Anxiety Agitated Delirium - on Roxicodone when necessary and amitriptyline daily - Neurontin. - Seroquel 100mg q8hr Respiratory: Acute hypoxic respiratory failure-resolved Acute COPD exacerbation MRSA pneumonia Obstructive sleep apnea suspect -Maintain O2 sat greater than 88-90%, on NC -Discontinue stress dose steroids, decrease Prednisone to 5 mg po bid today -DuoNeb every 4 hours and when necessary -Zyvox for MRSA pneumonia till 03/13. FF platelet ct - Pulmonary ff. Infectious Disease ff. -BiPAP when necessary and strictly at night. Continue EzPAP, Acapella - will need sleep studies done as OP- ff up with Dr. Bhatti when DC UTI- ESBL klebsiella, Proteus -ID on board-Dr. Mcwilliams. on Linezolid till 03/13. Ff platelet recheck in am - complains of frequency- will get a postvoiding residual urine volume to check for retention Cardiovascular: Hypotension secondary to septic shock-resolved Fluid overload History of hypertension Adrenal Insufficiency -Off norepinephrine -maintain MAP greater than 65 mmHg. - on Prednisone - on zyvox Renal: NADIR-resolved Renal insufficiency-resolved -collier removed- voiding spontaneously -Creatinine baseline -Strict I/Os FEN/GI: -Regular heart healthy diet -Bowel regimen -Colostomy-adequate output Endocrine: Hyperglycemia of Critical Illness Adrenal Insufficiency -- SSI, low scale, q6h -- - on po Prednisone Prophylaxis: GI Prophylaxis Protonix DVT Prophylaxis -- SCDs Heparin Lines: Right IJ central line Dr. Bundy 02/22/16, peripheral IVs 2-DC central line 03/04. Dc Collier left radial art line 02/22-discontinued 02/23 PT/OT consult for deconditioning- daily DC planning will need SNF- - hopefully Thursday- ff patient has been using PiPAP and sats good- doing well Baldo Paniagua MD Mar 10, 2016 09:53
[2016-03-10] MEDS ORDERED: GABA250S TUBE (10:06)
[2016-03-10] MEDS ORDERED: QUET1TAB8 PO (10:06)
[2016-03-10] MEDS ORDERED: ZYVO600T PO (10:06)
[2016-03-10] MEDS ORDERED: SENN8.6T15 PO (10:06)
[2016-03-10] MEDS ORDERED: PRED20 PO (10:10)
[2016-03-10] MEDS ORDERED: OXYC-392 PO (10:16)
[2016-03-10] MEDS ORDERED: IPRASOL INH (10:16)
[2016-03-10] MEDS ORDERED: LORazepam 2 MG/ML VIAL IV PRN (11:45)
[2016-03-10 12:21] VITALS: BP 127/64; PULSE 86; RESP 21; TEMP 98.6; O2SAT 92
[2016-03-10 14:09] VITALS: RESP 17
[2016-03-10] MEDS ORDERED: predniSONE 5 MG TAB PO SCH (21:00)
--- NOTE | 2016-03-12 09:31 | RSPPFT ---
DATE OF PROCEDURE: 03/07/16 COMMENTS: Spirometry with FVC of 0.8, FEV1 of 0.5 and FEV1/FVC ratio at 61%. A non-significant response to acutely inhaled bronchodilator noted. IMPRESSION: 1. Severe airways obstruction. 2. Non-significant response to acutely inhaled bronchodilator.
--- NOTE | 2016-03-27 11:18 | HHI.DS ---
Discharge Summary Admission Date Feb 22, 2016 at 21:37 Discharge Date: Mar 10, 2016 Admitting Diagnosis VDRF - Sepsis (1) Pneumonia ICD Code: J18.9 Diagnosis: Principal (2) Sepsis ICD Code: A41.9 Diagnosis: Principal (3) Acute exacerbation of chronic obstructive pulmonary disease (COPD) ICD Code: J44.1 Diagnosis: Principal (4) Acute respiratory failure with hypoxia and hypercarbia ICD Code: J96.01 Diagnosis: Principal Procedures central line and arterial line placement Brief History - From Admission Patient is a 56 year old female who presented to ED from a long term respiratory distress. Patient was noted to have decreased alertness at the long term. As per nursing, patient had a nonproductive cough with diminished lung sounds to her lungs. Patient was on continuous oxygen at 2 L, reports that her pulse ox was 84%. Patient was hypoxic when [facility] arrived on scene, patient was placed on BiPAP and transported to the ED. Upon arrival to the ED the patient had acute hypoxic respiratory failure and was intubated. The patient was noted to be hypotensive, central line was placed vasopressor support was initiated. The patient was recently discharged and was currently on antibiotics for ESBL, and a UTI . Labs were obtained and WBC count was noted to be elevated. Critical care medicine was consulted for management and treatment. Imaging Last Impressions Chest X-Ray 03/05/16 0600 Signed Impressions: Service Date/Time: Saturday, March 05, 2016 04:45 - CONCLUSION: Interval extubation. Stable diminished aeration. Hussein Trejo MD Abdomen/Pelvis CT 02/28/16 0000 Signed Impressions: Service Date/Time: February 14:07 - CONCLUSION: 1. There is no free intraperitoneal air. The chest x-ray finding likely was projectional. 2. Mild diffuse circumferential wall thickening and mild surrounding inflammation of the entire colon to the colostomy. Although nonspecific this could represent a colitis such as C. difficile colitis. There is trace free fluid in the pelvis. 3. Small bilateral pleural effusions with associated compressive atelectasis. Hussein Ortiz MD Chest CT 02/23/16 0000 Signed Impressions: Service Date/Time: Tuesday, February 23, 2016 16:35 - CONCLUSION: Bilateral lower lobe consolidated infiltrates or prominent left than the right. ET tube above the yaritza and nasogastric tube passing into the stomach Duncan Friedman MD PE at Discharge awake and alert, oriented x 3, speech clear anicteric lungs decreased breath sounds, no rales or wheezes, no rhonchi regular rhythm abdomen=soft, good bowel sounds, flabby, nontender, colostomy bag in place- + brown stools extremities no edema, moves all extremities- neuro exam non focal Pt update on day of discharge awake and alert, not in distress Hospital Course 56-year-old female with AMS with acute hypoxic respiratory failure is likely secondary to septic shock. The patient has had a previous admission approximately 12 weeks ago. Critically ill and in septic shock, now improving. She likely has a significant component of adrenal insufficiency contributing to her shock. Extubated yesterday clinically improving though tenuous Neurologic: Toxic /metabolic encephalopathy- Improved Anxiety Agitated Delirium - on Roxicodone when necessary and amitriptyline daily - Neurontin. - Seroquel 100mg q8hr Respiratory: Acute hypoxic respiratory failure-resolved Acute COPD exacerbation MRSA pneumonia Obstructive sleep apnea suspect -Maintain O2 sat greater than 88-90%, on NC -Discontinue stress dose steroids, decrease Prednisone to 5 mg po bid today -DuoNeb every 4 hours and when necessary -Zyvox for MRSA pneumonia till 03/13. FF platelet ct - Pulmonary ff. Infectious Disease ff. -BiPAP when necessary and strictly at night. Continue EzPAP, Acapella - will need sleep studies done as OP- ff up with Dr. Bhatti when DC UTI- ESBL klebsiella, Proteus -ID on board-Dr. Mcwilliams. on Linezolid till 03/13. Ff platelet recheck in am - complains of frequency- will get a postvoiding residual urine volume to check for retention Cardiovascular: Hypotension secondary to septic shock-resolved Fluid overload History of hypertension Adrenal Insufficiency -Off norepinephrine -maintain MAP greater than 65 mmHg. - on Prednisone - on zyvox Renal: NADIR-resolved Renal insufficiency-resolved -collier removed- voiding spontaneously -Creatinine baseline -Strict I/Os FEN/GI: -Regular heart healthy diet -Bowel regimen -Colostomy-adequate output Endocrine: Hyperglycemia of Critical Illness Adrenal Insufficiency -- SSI, low scale, q6h -- - on po Prednisone Prophylaxis: GI Prophylaxis Protonix DVT Prophylaxis -- SCDs Heparin Lines: Right IJ central line Dr. Bundy 02/22/16, peripheral IVs 2-DC central line 03/04. Dc Collier left radial art line 02/22-discontinued 02/23 PT/OT consult for deconditioning- daily DC planning will need SNF- - hopefully Thursday- CM ff patient has been using PiPAP and sats good- doing well Pt Condition on Discharge: Stable Discharge Disposition: Discharge to SNF Discharge Time: <= 30 minutes Discharge Instructions DIET: Follow Instructions for: Heart Healthy Diet Speech Therapy-Diet Recommends: Regular Activities you can perform: Weight Bearing as Carly Other Activity Instructions: daily PT/OT Follow up Referrals: Pulmonology - 03/13/16 with Magy Bhatti MD New Orders: CBC NO DIFF - 03/11/16 New Medications: Gabapentin Liq (Neurontin Liq) 250 Mg/5 Ml Soln 300 MG TUBE TID JOE/CHRISTINE Days 30 ML Ipratropium-Albuterol Neb (Duoneb) 0.5-2.5 Mg/3 Ml Neb 1 AMPULE INH Q6HR PRN WHEEZING Days 7 ML Linezolid (Zyvox) 600 Mg Tab 600 MG PO Q12HR Infection #7 Ref 0 TAB Oxycodone (Oxycodone) 5 Mg Tab 15 MG PO Q6HR PRN pain 1-10 Days 5 Ref 0 TAB Prednisone (Prednisone) 20 Mg Tab 5 MG PO BID copd #10 TAB Quetiapine (Quetiapine) 100 Mg Tab 100 MG PO Q8HR PSYC Days 30 TAB Sennosides (Senna Lax) 8.6 Mg Tab 17.2 MG PO Q12H PRN CONSTIPATION #10 TAB Continued Medications: Albuterol Neb (Albuterol Neb) 2.5 Mg/3 Ml Neb 2.5 MG NEB Q8HR NEB PRN SHORTNESS OF BREATH NEBULE Amitriptyline (Amitriptyline) 50 Mg Tab 50 MG PO HS Control Depression TAB Aspirin (Aspirin) 81 Mg Chew 81 MG CHEW DAILY TAB Docusate Sodium (Colace) 100 Mg Cap 100 MG PO BID Constipation CAP Multiple Vitamin (Multiple Vitamin) 1 Tab 1 TAB PO DAILY Nutritional Supplement TAB Discontinued Medications: Acetaminophen (Mapap) 325 Mg Tab 650 MG PO Q4HR NTE: 3,000 MG IN 24 HRS PRN PAIN TAB Alprazolam (Xanax) 0.5 Mg Tab 0.5 MG PO Q4H PRN ANXIETY #15 Ref 0 TAB Aripiprazole (Abilify) 5 Mg Tab 5 MG PO DAILY PSYCHOSIS TAB Ferrous Sulfate (Ferrous Sulfate) 325 Mg Tab 325 MG PO DAILY ANEMIA TAB Gabapentin (Gabapentin) 600 Mg Tab 1200 MG PO TID NEUROPATHY TAB Linezolid (Zyvox) 600 Mg Tab 600 MG PO Q12H infection Days 6 Ref 0 TAB Metoprolol Tartrate (Lopressor) 50 Mg Tab 50 MG PO Q12HR hypertension Days 30 Ref 0 TAB Nitroglycerin SL (Nitroglycerin SL) 0.4 Mg Subl 0.4 MG SL DIRECTED ONE TABLET UNDER THE TONGUE NEEDED FOR CHEST PAIN, MAY REPEAT EVERY FIVE MINUTES FOR A TOTAL OF 3 DOSES OR CALL 911 IF NO RELIEF PRN CHEST PAIN TAB.SL Oxycodone (Roxicodone) 15 Mg Tab 15 MG PO Q4HR PRN pain #20 Ref 0 TAB Prednisone (Prednisone) 5 Mg Tab 5 MG PO DIRECTED 40 mg po daily for two days then 30 mg po daily for two days then 20 mg po daily for two days then 10 mg po daily for two days then 5 mg po daily for two days then stop. Shortness of Breath Days 10 Ref 0 TAB Ranitidine (Zantac 150 Maximum Strength) 150 Mg Tab 150 MG PO BID ESOPHAFEAL REFLUX TAB Baldo Paniagua MD Mar 27, 2016 11:18 New Medications: Gabapentin Liq (Neurontin Liq) 250 Mg/5 Ml Soln 300 MG TUBE TID JOE/CHRISTINE Days 30 ML Ipratropium-Albuterol Neb (Duoneb) 0.5-2.5 Mg/3 Ml Neb 1 AMPULE INH Q6HR PRN WHEEZING Days 7 ML Linezolid (Zyvox) 600 Mg Tab 600 MG PO Q12HR Infection #7 Ref 0 TAB Oxycodone (Oxycodone) 5 Mg Tab 15 MG PO Q6HR PRN pain 1-10 Days 5 Ref 0 TAB Prednisone (Prednisone) 20 Mg Tab 5 MG PO BID copd #10 TAB Quetiapine (Quetiapine) 100 Mg Tab 100 MG PO Q8HR PSYC Days 30 TAB Sennosides (Senna Lax) 8.6 Mg Tab 17.2 MG PO Q12H PRN CONSTIPATION #10 TAB Continued Medications: Albuterol Neb (Albuterol Neb) 2.5 Mg/3 Ml Neb 2.5 MG NEB Q8HR NEB PRN SHORTNESS OF BREATH NEBULE Amitriptyline (Amitriptyline) 50 Mg Tab 50 MG PO HS Control Depression TAB Aspirin (Aspirin) 81 Mg Chew 81 MG CHEW DAILY TAB Docusate Sodium (Colace) 100 Mg Cap 100 MG PO BID Constipation CAP Multiple Vitamin (Multiple Vitamin) 1 Tab 1 TAB PO DAILY Nutritional Supplement TAB Discontinued Medications: Acetaminophen (Mapap) 325 Mg Tab 650 MG PO Q4HR NTE: 3,000 MG IN 24 HRS PRN PAIN TAB Alprazolam (Xanax) 0.5 Mg Tab 0.5 MG PO Q4H PRN ANXIETY #15 Ref 0 TAB Aripiprazole (Abilify) 5 Mg Tab 5 MG PO DAILY PSYCHOSIS TAB Ferrous Sulfate (Ferrous Sulfate) 325 Mg Tab 325 MG PO DAILY ANEMIA TAB Gabapentin (Gabapentin) 600 Mg Tab 1200 MG PO TID NEUROPATHY TAB Linezolid (Zyvox) 600 Mg Tab 600 MG PO Q12H infection Days 6 Ref 0 TAB Metoprolol Tartrate (Lopressor) 50 Mg Tab 50 MG PO Q12HR hypertension Days 30 Ref 0 TAB Nitroglycerin SL (Nitroglycerin SL) 0.4 Mg Subl 0.4 MG SL DIRECTED ONE TABLET UNDER THE TONGUE NEEDED FOR CHEST PAIN, MAY REPEAT EVERY FIVE MINUTES FOR A TOTAL OF 3 DOSES OR CALL 911 IF NO RELIEF PRN CHEST PAIN TAB.SL Oxycodone (Roxicodone) 15 Mg Tab 15 MG PO Q4HR PRN pain #20 Ref 0 TAB Prednisone (Prednisone) 5 Mg Tab 5 MG PO DIRECTED 40 mg po daily for two days then 30 mg po daily for two days then 20 mg po daily for two days then 10 mg po daily for two days then 5 mg po daily for two days then stop. Shortness of Breath Days 10 Ref 0 TAB Ranitidine (Zantac 150 Maximum Strength) 150 Mg Tab 150 MG PO BID ESOPHAFEAL REFLUX TAB Baldo Paniagua MD Mar 27, 2016 11:18
== END 2016-03-10 14:15 | DRG 870 ==
LOC: NEPE 18:50 → NEDA 21:37 → HIMW 02-23 04:10 → N05A 03-06 02:02
PROVIDERS: ADMIT Internal Medicine; ATTEND Internal Medicine
PROC: 5A1955Z Respiratory Ventilation, Greater than 96 Consecutive Hours (ICD-10-PCS; principal; 2016-02-22)
PROC: 0BH17EZ Insertion of Endotracheal Airway into Trachea, Via Natural or Artificial Opening (ICD-10-PCS; 2016-02-22)
PROC: 02HV33Z Insertion of Infusion Device into Superior Vena Cava, Percutaneous Approach (ICD-10-PCS; 2016-02-22)
PROC: 03HY32Z Insertion of Monitoring Device into Upper Artery, Percutaneous Approach (ICD-10-PCS; 2016-02-23)
DX: A41.9 Sepsis, unspecified organism (principal); R65.21 Severe sepsis with septic shock; J96.01 Acute respiratory failure with hypoxia; J96.02 Acute respiratory failure with hypercapnia; G93.41 Metabolic encephalopathy; J15.212 Pneumonia due to Methicillin resistant Staphylococcus aureus; N17.9 Acute kidney failure, unspecified; N39.0 Urinary tract infection, site not specified; Z68.41 Body mass index [BMI] 40.0-44.9, adult; J44.0 Chronic obstructive pulmonary disease with (acute) lower respiratory infection; E27.40 Unspecified adrenocortical insufficiency; J44.1 Chronic obstructive pulmonary disease with (acute) exacerbation; E87.2 Acidosis; Z99.11 Dependence on respirator [ventilator] status; G47.33 Obstructive sleep apnea (adult) (pediatric); K21.9 Gastro-esophageal reflux disease without esophagitis; E66.01 Morbid (severe) obesity due to excess calories; G89.29 Other chronic pain; F41.8 Other specified anxiety disorders; I10 Essential (primary) hypertension; B96.1 Klebsiella pneumoniae [K. pneumoniae] as the cause of diseases classified elsewhere; B96.4 Proteus (mirabilis) (morganii) as the cause of diseases classified elsewhere; R73.9 Hyperglycemia, unspecified; K52.9 Noninfective gastroenteritis and colitis, unspecified; D64.9 Anemia, unspecified; E87.70 Fluid overload, unspecified; Z93.3 Colostomy status; Z99.81 Dependence on supplemental oxygen; Z87.442 Personal history of urinary calculi; Z98.84 Bariatric surgery status; Z86.14 Personal history of Methicillin resistant Staphylococcus aureus infection
CPT/HCPCS: 31500; 36556; 36600; 71010; 71250; 74176; 74177; 76937; 80048; 80053; 81001; 82533; 82550; 82552; 82728; 82805; 82948; 83540; 83550; 83605; 83735; 83880; 84100; 84132; 84443; 84466; 84484; 85007; 85025; 85027; 85610; 85730; 86403; 87040; 87070; 87077; 87086; 87147; 87186; 87205; 87641; 93005; 94002; 94003; 94060; 94150; 94640; 94667; 94668; C9113; C9399; J0743; J1120; J1630; J1644; J1720; J1940; J2020; J2250; J2405; J2997; J3010; J3370; J3480; J7030; J7050; J7120; J7512; Q9963; Q9967

== ENCOUNTER 2016-06-06 17:37 | Inpatient (IN) | payer MEDICAID ==
[2016-06-06] VITALS (7 sets, daily range): BP systolic 105–128; BP diastolic 50–58; PULSE 104–110; RESP 20–34; TEMP 97.6–98.4; O2SAT 91–92
[~2016-06-06] VITALS: Ht 170.2 cm; Wt 144.0 kg
[~2016-06-06 17:37] MED LIST changes: -ABIL5TAB6 PO; -ALPR.5 PO; -FERR325T PO; +GABA250S TUBE; -GABA600T PO; +IPRASOL INH; -MAPA325T PO; -METO-309 PO; -NITR1SUB3 SL; +OXYC-392 PO; +PRED20 PO; -PRED5TAB PO; +QUET1TAB8 PO; -ROXI15TA9 PO; +SENN8.6T15 PO; -ZANTTAB PO
--- NOTE | 2016-06-06 19:11 | PD ---
HPI Chief Complaint: Respiratory Symptoms Time Seen by Provider: 19:09 Travel History International Travel<30 days: No Contact w/Intl Traveler<30days: No Traveled to known affect area: No History of Present Illness HPI 56-year-old female arrives to the ER by EMS from an [facility] due to cough with productive phlegm and shortness of breath. She has COPD. She quit smoking about 25 years ago. She reports a fever as high as 101.0. She reports the coughing is so bad at times it causes a headache. She also suffers with chronic neuropathic pain and chronic low back pain. She has neuropathic pain which can be very severe and actually cause some chest pain when it is severe. PFSH Past Medical History Anemia: Yes Anxiety: Yes Depression: Yes Cancer: No Cardiovascular Problems: Yes COPD: Yes Cerebrovascular Accident: No Diabetes: No Diminished Hearing: No Diverticulitis: Yes Endocrine: No GERD: Yes Herniated Disk: Yes Kidney Stones: Yes Musculoskeletal: Yes Psychiatric: Yes Reproductive: No Respiratory: Yes Sleep Apnea: Yes Thyroid Disease: No Past Surgical History Abdominal Surgery: Yes (COLOSTOMY; GASTRIC BYPASS) Social History Alcohol Use: No Tobacco Use: No Substance Use: No Allergies-Medications (Allergen,Severity, Reaction): Coded Allergies: Penicillin (Verified Allergy, Unknown, 02/22/16) *MDRO Multi-Drug Resistant Organism (Verified Adverse Reaction, Unknown, MRSA, 03/06/16) MRSA screen POSITIVE - 01/13/16, 02/22/15 MRSA (sputum-01/13/16, 02/25/16 & 03/03/16) ESBL k.pneumoniae (urine)-02/22/16 Reported Meds & Prescriptions Reported Meds & Active Scripts Active Oxycodone (Oxycodone HCl) 5 Mg Tab 15 Mg PO Q6HR PRN 5 Days Duoneb (Ipratropium-Albuterol Neb) 0.5-2.5 Mg/3 Ml Neb 1 Ampule INH Q6HR PRN 7 Days Prednisone 20 Mg Tab 5 Mg PO BID Senna Lax (Sennosides) 8.6 Mg Tab 17.2 Mg PO Q12H PRN Quetiapine (Quetiapine Fumarate) 100 Mg Tab 100 Mg PO Q8HR 30 Days Zyvox (Linezolid) 600 Mg Tab 600 Mg PO Q12HR Neurontin Liq (Gabapentin) 250 Mg/5 Ml Soln 300 Mg TUBE TID 30 Days Reported Multiple Vitamin 1 Tab 1 Tab PO DAILY Albuterol Neb (Albuterol Sulfate) 2.5 Mg/3 Ml Neb 2.5 Mg NEB Q8HR NEB PRN Colace (Docusate Sodium) 100 Mg Cap 100 Mg PO BID Aspirin 81 Mg Chew 81 Mg CHEW DAILY Amitriptyline (Amitriptyline HCl) 50 Mg Tab 50 Mg PO HS Review of Systems Except as stated in HPI: all other systems reviewed are Neg General / Constitutional: Positive: Fever Respiratory: Positive: Cough, No: Shortness of Breath Physical Exam Narrative GENERAL: 56 yo F, WNWD, speaking sentences, BMI > 35, NC present SKIN: Warm and dry. HEAD: Atraumatic. Normocephalic. EYES: Pupils equal and round. No scleral icterus. No injection or drainage. ENT: No nasal bleeding or discharge. Mucous membranes pink and moist. NECK: Trachea midline. No JVD. CARDIOVASCULAR: Tachycardia. Regular. RESPIRATORY: Speaking sentences. No tachypnea. Upper anterior lung sound clear. GASTROINTESTINAL: Abdomen soft, non-tender, nondistended. Hepatic and splenic margins not palpable. L abdomen colostomy bag with brown well formed stool. Well healed surgical incision midline abdomen. MUSCULOSKELETAL: Extremities without clubbing, cyanosis, or edema. No obvious deformities. NEUROLOGICAL: Awake and alert. No obvious cranial nerve deficits. Motor grossly within normal limits. Five out of 5 muscle strength in the arms and legs. Normal speech. PSYCHIATRIC: Appropriate mood and affect; insight and judgment normal. Data Data Last Documented VS Vital Signs Date Time Temp Pulse Resp B/P Pulse Ox O2 Delivery O2 Flow Rate FiO2 06/06/16 19:28 92 Nasal Cannula 4.00 06/06/16 19:23 98.4 06/06/16 18:11 120 20 Orders Complete Blood Count With Diff (06/06/16 19:09) Lactic Acid Sepsis Protocol (06/06/16 19:09) Ckmb (Isoenzyme) Profile (06/06/16 19:09) Troponin I (06/06/16 19:09) Urinalysis - C+S If Indicated (06/06/16 19:09) Influenzae A/B Antigen (06/06/16 19:09) Blood Culture (06/06/16 19:09) Chest, Single Ap (06/06/16 19:09) Ecg Monitoring (06/06/16 19:09) Iv Access Insert/Monitor (06/06/16 19:09) Oximetry (06/06/16 19:09) Oxygen Administration (06/06/16 19:09) Sodium Chlor 0.9% 1000 Ml Inj (Ns 1000 M (06/06/16 19:15) Sodium Chlor 0.9% 1000 Ml Inj (Ns 1000 M (06/06/16 19:15) Basic Metabolic Panel (Bmp) (06/06/16 19:09) Methylprednisolone So Succ Inj (Solumedr (06/06/16 19:15) Albuterol-Ipratropium Neb (Duoneb Neb) (06/06/16 19:15) Oxycodone-Acetamin 5-325 Mg (Percocet (06/06/16 19:15) Ceftriaxone Inj (Rocephin Inj) (06/06/16 20:00) Azithromycin Inj (Zithromax Inj) (06/06/16 20:00) Labs Laboratory Tests Test 06/06/16 19:25 White Blood Count 12.2 TH/MM3 Red Blood Count 4.93 MIL/MM3 Hemoglobin 13.7 GM/DL Hematocrit 41.6 % Mean Corpuscular Volume 84.4 FL Mean Corpuscular Hemoglobin 27.9 PG Mean Corpuscular Hemoglobin 33.0 % Concent Red Cell Distribution Width 15.2 % Platelet Count 170 TH/MM3 Mean Platelet Volume 10.2 FL Neutrophils (%) (Auto) 82.1 % Lymphocytes (%) (Auto) 8.8 % Monocytes (%) (Auto) 6.9 % Eosinophils (%) (Auto) 1.9 % Basophils (%) (Auto) 0.3 % Neutrophils # (Auto) 10.0 TH/MM3 Lymphocytes # (Auto) 1.1 TH/MM3 Monocytes # (Auto) 0.8 TH/MM3 Eosinophils # (Auto) 0.2 TH/MM3 Basophils # (Auto) 0.0 TH/MM3 CBC Comment DIFF FINAL Differential Comment Sodium Level 138 MEQ/L Potassium Level 4.0 MEQ/L Chloride Level 97 MEQ/L Carbon Dioxide Level 34.0 MEQ/L Anion Gap 7 MEQ/L Blood Urea Nitrogen 12 MG/DL Creatinine 0.72 MG/DL Estimat Glomerular Filtration 83 ML/MIN Rate Random Glucose 142 MG/DL Lactic Acid Level 0.9 mmol/L Calcium Level 9.7 MG/DL Total Creatine Kinase 18 U/L Troponin I LESS THAN 0.02 NG/ML MDM Medical Decision Making Medical Screen Exam Complete: Yes Emergency Medical Condition: Yes Medical Record Reviewed: Yes Differential Diagnosis Pneumonia, COPD exacerbation, sepsis, anemia, renal failure Narrative Course CBC & BMP Diagram 06/06/16 19:25 Tn < 0.02 LA 0.9 Last 24 hours Impressions Chest X-Ray 06/06/16 1909 Signed Impressions: Service Date/Time: Monday, June 06, 2016 19:14 - CONCLUSION: Worsening airspace disease right upper lobe but improving airspace disease left lung and right lower lobe. Reginaldo Hoover MD Patient reassessed at about 8:15 PM. Her pulse is about 120 after 2 L of crystalloid. She received 3 rounds of DuoNeb and Solu-Medrol. She reports mild persistent dyspnea. It looks as though she has a worsening right lung airspace disease. Earlier in the day she had a fever 101 to her recollection and she received ibuprofen shortly thereafter. Blood cultures drawn and antibiotics started, Rocephin and azithromycin. O2 sat between 88 and 92% on nasal cannula although the patient does not appear to be in respiratory distress and speaks full sentences. Case d/w Dr Davies. Sepsis Criteria SIRS Criteria (2 or more): Heart rate over 90, WBC > 52263, < 4000 or > 10% bands Sepsis Criteria (SIRS+source): Infect source susp/known Diagnosis Primary Impression: Pneumonia Qualified Code: J18.1 - Pneumonia of left lower lobe due to infectious organism Additional Impressions: Acute exacerbation of chronic obstructive pulmonary disease (COPD) Sepsis Qualified Code: A41.9 - Sepsis, due to unspecified organism Admitting Information Admitting Physician Requests: Admit Jose Elias Rhodes MD Jun 06, 2016 19:11
[2016-06-06] MEDS ORDERED: methylPREDNISolone SOD SUCC 125 MG/2 ML VIAL IVP ONE (19:15)
[2016-06-06] MEDS ORDERED: oxyCODONE/ACETAMINOPHEN 5 MG/325 MG TAB PO ONE (19:15)
[2016-06-06] MEDS ORDERED: SODIUM CHLOR 0.9% 1000 ML INJ 1,000 ML IV ONE ×2 (19:15)
[2016-06-06] MEDS: RESP: ALBUTEROL 2.5 MG/IPRATROPIUM 0.5 MG NEB (SCH) INH (19:25)
--- NOTE | 2016-06-06 19:30 | RADRPT ---
EXAM DATE/TIME: 06/06/2016 19:14 [facility] COMPARISON: CHEST SINGLE AP, March 05, 2016, 4:45. INDICATIONS : Chest pain, shortness of breath, coughing, and fever. MEDICAL HISTORY : Chronic obstructive pulmonary disease. Gastroesophageal reflux disease. SURGICAL HISTORY : Colostomy. Gastric bypass. ENCOUNTER: Initial ACUITY: 3 days PAIN SCORE: 5/10 LOCATION: Bilateral chest FINDINGS: A single view of the chest demonstrates airspace disease right upper lobe and left lower lobe. Slight improvement in the left lung and right lower lobe. Heart normal in size. Osseous structures are int act. CONCLUSION: Worsening airspace disease right upper lobe but improving airspace disease left lung and right lower lobe. Reginaldo Hoover MD on June 06, 2016 at 19:27 Board Certified Radiologist. This report was verified electronically.
[2016-06-06 19:45] LABS: BASOPHIL % 0.3 % (0.0-2.0); EOSINOPHIL # 0.2 TH/MM3 (0-0.4); EOSINOPHIL % 1.9 % (0.0-4.0); HEMATOCRIT 41.6 % (35.0-46.0); HEMO FLAGS DIFF FINAL; LYMPH % 8.8 % (9.0-44.0); LYMPHOCYTE # 1.1 TH/MM3 (1.0-4.8); MEAN CELL VOLUME 84.4 FL (80.0-100.0); MEAN CORPUSCULAR HEMOGLOBIN 27.9 PG (27.0-34.0); MONO % 6.9 % (0.0-8.0); NEUT % 82.1 % (16.0-70.0); PLATELET COUNT 170 TH/MM3 (150-450); RED BLOOD COUNT 4.93 MIL/MM3 (4.00-5.30); RED CELL DISTRIBUTION WIDTH 15.2 % (11.6-17.2); WHITE BLOOD COUNT 12.2 TH/MM3 (4.0-11.0)
[2016-06-06] MEDS ORDERED: cefTRIAXone INJ 1,000 MG in SODIUM CHLORIDE 0.9% INJ 100 ML IV ONE (20:00)
[2016-06-06] MEDS ORDERED: AZITHROMYCIN INJ 500 MG in SODIUM CHLOR 0.9% 250 ML INJ 250 ML IV ONE (20:00)
[2016-06-06 20:02] LABS: ANION GAP 7 MEQ/L (5-15); BLOOD UREA NITROGEN 12 MG/DL (7-18); CHLORIDE 97 MEQ/L (98-107); GLOMERULAR FILTRATION RATE 83 ML/MIN (>89); SODIUM (NA) 138 MEQ/L (136-145)
[2016-06-06 20:13] LABS: CREATINE KINASE 18 U/L (26-192)
[2016-06-06 20:38] LABS: BACTERIA, URINE MANY /hpf; BLOOD, URINE TRACE (NEG); COMMENT (UR) CATH-CULTURE IND; CULTURE IF INDICATED CATH CULTURE IND; GLUCOSE,URINE NEG (NEG); KETONE, URINE NEG (NEG); MUCUS URINE FEW /lpf (OCC); NITRITE,URINE POS (NEG); SQUAMOUS EPITHELIAL CELL URINE 3 /hpf (0-5); URINE COLOR YELLOW (YELLW/STRAW)
[2016-06-06] MEDS ORDERED: ACETAMINOPHEN/HYDROcodone 325 MG/5 MG TAB PO PRN (20:45)
[2016-06-06] MEDS ORDERED: ONDANSETRON HCL 4 MG/2 ML VIAL IVP PRN (20:45)
[2016-06-06] MEDS ORDERED: Vancomycin Consult Pharmacy 1 EA OTHER SCH (20:45)
[2016-06-06] MEDS ORDERED: BISACODYL 10 MG SUPP RECTAL PRN (20:45)
[2016-06-06] MEDS ORDERED: ACETAMINOPHEN 325 MG TAB PO PRN (20:45)
--- NOTE | 2016-06-06 20:49 | HHI.HP ---
HPI Service [facility] Hospital[facility] Primary Care Physician Unknown Admission Diagnosis Sepsis (PNA), COPD Exacerbation, Hypoxia Diagnoses: (1) Sepsis Diagnosis: Principal (2) PNA (pneumonia) Diagnosis: Principal (3) UTI (urinary tract infection) Diagnosis: Principal (4) Hypoxia Diagnosis: Principal (5) COPD (chronic obstructive pulmonary disease) Diagnosis: Principal Travel History International Travel<30 Days: No Contact w/Intl Traveler <30 Da: No Traveled to Known Affected Are: No History of Present Illness This is a 56-year-old female with a PMH of Anxiety, Depression, COPD and GERD who was sent to the ER from [facility] secondary to complaints of SOB, hypoxia and fever of 101.0. Also reports productive cough w/ yellow/green colored sputum. Denies chest pain or sick contacts. EMS reported O2 sat 80%, improved w/ 4L NC, currently at 96%. On arrival, BP 128/58, HR 110, O2 sat 92% on 4L NC. WBC 12.2. GFR 83. Troponin negative. Lactic Acid 0.9. UA positive for UTI. CXR with worsening airspace disease right upper lobe and improvement of airspace disease left lung and right lower lobe. S/p Blood/ Urine cultures, Vanc/Zosyn, Solu-Medrol and DuoNeb in ER. Of note, pt w/ previous admit 02/21-03/27/16 w/ Sepsis, PNA and Respiratory Failure requiring Intubation, d/c'd to LONG-TERM at time of d/c. Review of Systems Except as stated in HPI: all other systems reviewed are Neg ROS: 14 point review of systems otherwise negative. Past Family Social History Past Medical History PMH: Anxiety, Depression, COPD and GERD Past Surgical History PAST SURGICAL HISTORY: Colostomy, Gastric Bypass Allergies: Coded Allergies: Penicillin (Verified Allergy, Unknown, 02/22/16) *MDRO Multi-Drug Resistant Organism (Verified Adverse Reaction, Unknown, MRSA, 03/06/16) MRSA screen POSITIVE - 01/13/16, 02/22/15 MRSA (sputum-01/13/16, 02/25/16 & 03/03/16) ESBL k.pneumoniae (urine)-02/22/16 Family History PAST FAMILY HISTORY: Reviewed. No h/o DM or CAD Social History PAST SOCIAL HISTORY: Negative for alcohol, tobacco or drugs. Physical Exam Vital Signs Vital Signs Date Time Temp Pulse Resp B/P Pulse Ox O2 Delivery O2 Flow Rate FiO2 06/06/16 19:28 92 Nasal Cannula 4.00 06/06/16 19:23 98.4 06/06/16 19:05 92 Nasal Cannula 4 06/06/16 18:11 120 20 92 Nasal Cannula 4 06/06/16 18:06 20 Physical Exam PE: GENERAL: Middle-aged female in no acute distress. HEENT: PERRLA, EOMI. No scleral icterus or conjunctival pallor. No lid lag or facial droop. CARDIOVASCULAR: Regular rate and rhythm. No obvious murmurs to auscultation. No chest tenderness to palpation. RESPIRATORY: No obvious rhonchi, occasional wheezing. Clear to auscultation. Breath sounds equal bilaterally. GASTROINTESTINAL: Abdomen soft, non-tender, nondistended. BS normal. Colostomy in place. MUSCULOSKELETAL: Extremities without clubbing, cyanosis, or edema. No obvious deformities. NEUROLOGICAL: Awake, alert and oriented x4. No focal neurologic deficits. Moving both upper and lower extremities spontaneously. Laboratory Laboratory Tests Test 06/06/16 06/06/16 19:25 20:00 White Blood Count 12.2 Red Blood Count 4.93 Hemoglobin 13.7 Hematocrit 41.6 Mean Corpuscular Volume 84.4 Mean Corpuscular Hemoglobin 27.9 Mean Corpuscular Hemoglobin 33.0 Concent Red Cell Distribution Width 15.2 Platelet Count 170 Mean Platelet Volume 10.2 Neutrophils (%) (Auto) 82.1 Lymphocytes (%) (Auto) 8.8 Monocytes (%) (Auto) 6.9 Eosinophils (%) (Auto) 1.9 Basophils (%) (Auto) 0.3 Neutrophils # (Auto) 10.0 Lymphocytes # (Auto) 1.1 Monocytes # (Auto) 0.8 Eosinophils # (Auto) 0.2 Basophils # (Auto) 0.0 CBC Comment DIFF FINAL Differential Comment Sodium Level 138 Potassium Level 4.0 Chloride Level 97 Carbon Dioxide Level 34.0 Anion Gap 7 Blood Urea Nitrogen 12 Creatinine 0.72 Estimat Glomerular Filtration 83 Rate Random Glucose 142 Lactic Acid Level 0.9 Calcium Level 9.7 Total Creatine Kinase 18 Troponin I LESS THAN 0.02 Urine Color YELLOW Urine Turbidity HAZY Urine pH 6.0 Urine Specific [place] 1.023 Urine Protein 30 Urine Glucose (UA) NEG Urine Ketones NEG Urine Occult Blood TRACE Urine Nitrite POS Urine Bilirubin NEG Urine Urobilinogen 4.0 Urine Leukocyte Esterase LARGE Urine RBC 4 Urine WBC Urine WBC Clumps OCC Urine Squamous Epithelial 3 Cells Urine Bacteria MANY Urine Mucus FEW Microscopic Urinalysis Comment CATH-CULTURE IND Date/Time Procedure Status Source Growth 06/06/16 20:00 Urine Culture Received Urine Catheterized Urine Pending 06/06/16 20:00 Influenza Types A,B Antigen (JOHNNY) - Final Complete Nasal Aspirate NEGATIVE FOR FLU A AND B ANTIGEN.... 06/06/16 19:30 Aerobic Blood Culture Received Blood Peripheral Pending 06/06/16 19:30 Anaerobic Blood Culture Received Blood Peripheral Pending Result Diagram: 06/06/16192406/06/161924 Assessment and Plan Problem List: (1) Sepsis ICD Code: A41.9 Status: Acute (2) PNA (pneumonia) ICD Code: J18.9 Status: Acute (3) UTI (urinary tract infection) ICD Code: N39.0 Status: Acute (4) Hypoxia ICD Code: R09.02 Status: Acute (5) COPD (chronic obstructive pulmonary disease) ICD Code: J44.9 Status: Acute Assessment and Plan A/P: 1. Sepsis: Temp 101.0, HR 101, WBC 12.2, Source-PNA/UTI. S/p Blood/Urine cultures, Vanc/Zosyn in ER. Will follow up cultures, continue w/ IV Abx. 2. PNA: CXR w/ worsening airspace disease right upper lobe, but improving airspace disease left lung and right lower lobe, images reviewed by me. Will continue with IV Abx as above. Check Sputum Cultures. DuoNeb prn. 3. UTI: U/a w/ UTI, continue w/ IV Abx as above, follow up urine cultures. 4. COPD: Chronic Obstructive Respiratory Failure w/ Acute Exacerbation. S/p Solu-Medrol in ER, will continue w/ Solu-Medrol, DuoNeb q4h and q2h prn, Symbicort. 5. Hypoxia: Multifactorial-COPD/PNA. O2 sat 80's upon EMS arrival, currently 92-94% on 4L NC, monitor O2. 6. DVT Prophylaxis: SCD/Teds. 7. Social work for d/c planning as needed. 8. Case discussed w/ ER physician at length. Physician Certification 2 Midnight Certification Type: Admission for Inpatient Services Order for Inpatient Services The services are ordered in accordance with Medicare regulations or non- Medicare payer requirements, as applicable. In the case of services not specified as inpatient-only, they are appropriately provided as inpatient services in accordance with the 2-midnight benchmark. Estimated LOS (days): 2 days is the estimated time the patient will need to remain in the hospital, assuming treatment plan goals are met and no additional complications. Post-Hospital Plan: Not yet determined Problem Qualifiers (1) Sepsis: Qualified Code: A41.9 - Sepsis, due to unspecified organism Belle Davies MD Jun 06, 2016 20:49
[2016-06-06] MEDS ORDERED: SENNOSIDES 8.6 MG TAB PO PRN (21:30)
[2016-06-06] MEDS: QUEtiapine FUMARATE 100 MG TAB PO SCH (23:30)
[2016-06-06] MEDS: methylPREDNISolone SOD SUCC 40 MG/1 ML VIAL IV PUSH SCH (23:30)
[2016-06-06] MEDS: DOCUSATE SODIUM 100 MG CAP PO SCH (23:30)
[2016-06-06] MEDS: AMITRIPTYLINE HCL 50 MG TAB PO SCH (23:31)
[2016-06-06] MEDS: SODIUM CHLORIDE 0.9% FLUSH 10 ML FLUSH IV FLUSH SCH (23:31)
[2016-06-06] MEDS: RESP: ALBUTEROL 2.5 MG/IPRATROPIUM 0.5 MG NEB (PRN) NEB (23:54)
[2016-06-07] VITALS (8 sets, daily range): BP systolic 128–145; BP diastolic 53–65; PULSE 71–111; RESP 18–32; TEMP 97.3–98; O2SAT 90–93
[2016-06-07] MEDS: VANCOMYCIN 1,500 MG/NS 500 ML IV SCH ×4 (00:02→12:33)
[2016-06-07] MEDS: methylPREDNISolone SOD SUCC 40 MG/1 ML VIAL IV PUSH SCH ×3 (05:41→17:49)
[2016-06-07] MEDS: QUEtiapine FUMARATE 100 MG TAB PO SCH ×3 (05:41→21:00)
[2016-06-07 07:38] LABS: AUTOMATED NEUTROPHIL # 9.2 TH/MM3 (1.8-7.7); BASOPHIL % 0.4 % (0.0-2.0); EOSINOPHIL % 0.2 % (0.0-4.0); HEMATOCRIT 39.5 % (35.0-46.0); HEMO FLAGS DIFF FINAL; LYMPH % 5.6 % (9.0-44.0); LYMPHOCYTE # 0.6 TH/MM3 (1.0-4.8); MEAN CELL VOLUME 83.9 FL (80.0-100.0); MEAN CORPUSCULAR HEMOGLOBIN 27.9 PG (27.0-34.0); MEAN CORPUSCULAR HGB CONC 33.3 % (32.0-36.0); MONO % 1.2 % (0.0-8.0); NEUT % 92.6 % (16.0-70.0); PLATELET COUNT 135 TH/MM3 (150-450); RED BLOOD COUNT 4.71 MIL/MM3 (4.00-5.30); RED CELL DISTRIBUTION WIDTH 15.1 % (11.6-17.2); WHITE BLOOD COUNT 9.9 TH/MM3 (4.0-11.0)
[2016-06-07 07:58] LABS: ANION GAP 6 MEQ/L (5-15); AST (GOT) 109 U/L (15-37); BICARBONATE 32.3 MEQ/L (21.0-32.0); CHLORIDE 103 MEQ/L (98-107); GLOMERULAR FILTRATION RATE 96 ML/MIN (>89); POTASSIUM 4.8 MEQ/L (3.5-5.1); SODIUM (NA) 141 MEQ/L (136-145)
[2016-06-07 08:06] LABS: ALKALINE PHOSPHATASE 148 U/L (45-117); ALT (GPT) 155 U/L (10-53); TOTAL BILIRUBIN ADULT 0.3 MG/DL (0.2-1.0)
[2016-06-07 08:16] LABS: BLOOD UREA NITROGEN 12 MG/DL (7-18)
[2016-06-07] MEDS: RESP: ALBUTEROL 2.5 MG/IPRATROPIUM 0.5 MG NEB (SCH) NEB ×4 (08:39→21:40)
[2016-06-07] MEDS: ASPIRIN 81 MG CHEW TAB CHEW SCH (09:41)
[2016-06-07] MEDS: MULTIVITAMIN TAB PO SCH (09:41)
[2016-06-07] MEDS: DOCUSATE SODIUM 100 MG CAP PO SCH ×2 (09:41→20:59)
[2016-06-07] MEDS: SODIUM CHLORIDE 0.9% FLUSH 10 ML FLUSH IV FLUSH SCH ×2 (09:42→21:00)
[2016-06-07] MEDS: CEFEPIME INJ 1,000 MG in SODIUM CHLORIDE 0.9% INJ 100 ML IV SCH ×2 (09:42→21:00)
[2016-06-07] MEDS: MORPHINE SULFATE 4 MG/ML INJ IV PRN ×2 (09:57→13:06)
--- NOTE | 2016-06-07 16:02 | HHI.PR ---
Subjective Remarks Patient asked to increase her pain medication due to chronic pain syndrome Stated her breathing is better but she still coughing up "black and greenish phlegm " Afebrile no chest pain Objective Vitals Vital Signs Date Time Temp Pulse Resp B/P Pulse Ox O2 Delivery O2 Flow Rate FiO2 06/07/16 12:27 93 Nasal Cannula 4.00 06/07/16 12:00 98.0 111 21 128/60 92 06/07/16 08:00 97.8 88 19 129/60 93 06/07/16 03:55 97.3 101 32 130/60 90 06/06/16 23:54 91 Nasal Cannula 4.00 06/06/16 23:00 104 06/06/16 22:14 97.6 105 34 105/50 91 06/06/16 21:58 110 24 128/58 92 4 06/06/16 19:28 92 Nasal Cannula 4.00 06/06/16 19:23 98.4 06/06/16 19:05 92 Nasal Cannula 4 06/06/16 18:11 120 20 92 Nasal Cannula 4 06/06/16 18:06 20 I/O 06/06/16 06/06/16 06/06/16 06/07/16 06/07/16 06/07/16 07:00 15:00 23:00 07:00 15:00 23:00 Intake Total 120 ml 1795 ml Output Total 650 ml Balance -530 ml 1795 ml Intake Oral 120 ml 960 ml IV Total 835 ml Output Urine Total 650 ml # Voids 3 # Bowel Movements 0 Result Diagram: 06/07/1662406/07/16624 Objective Remarks GENERAL: This is a well-nourished, orbitally obese female well-developed patient , in no apparent distress. SKIN: No rashes, warm and dry HEAD: Atraumatic. Normocephalic. EYES: Pupils equal round and reactive. Extraocular motions intact. No scleral icterus. ENT: Nose without bleeding, or drainage, Airway patent. NECK: Trachea midline. Supple CARDIOVASCULAR: Regular rate and rhythm without murmurs, gallops, or rubs. RESPIRATORY:Diminished breath sounds mostly due to body habitus with bilateral wheezes GASTROINTESTINAL: Abdomen soft, non-tender, nondistended. Positive bowel sounds MUSCULOSKELETAL: Extremities without clubbing, cyanosis, or edema. Pedal pulses appreciated NEUROLOGICAL: Awake and alert. Moves all extremity. Normal speech.no focal neurological deficit A/P Problem List: (1) Sepsis ICD Code: A41.9 Status: Acute (2) PNA (pneumonia) ICD Code: J18.9 Status: Acute (3) UTI (urinary tract infection) ICD Code: N39.0 Status: Acute (4) Hypoxia ICD Code: R09.02 Status: Acute (5) COPD (chronic obstructive pulmonary disease) ICD Code: J44.9 Status: Acute Assessment and Plan . Sepsis: Temp 101.0, HR 101, WBC 12.2, Source-PNA/UTI. S/p Blood/Urine cultures, Vanc/Zosyn in ER. Will follow up cultures, continue w/ IV Abx. . PNA: CXR w/ worsening airspace disease right upper lobe, but improving airspace disease left lung and right lower lobe, images reviewed by me. continue with IV Abx as above. Check Sputum Cultures. DuoNeb prn. . Increased transaminases with alkaline phosphatase: Patient stated she had cholecystectomy years ago when she did bariatric surgery, will check liver ultrasound, hepatitis profile and are LFT in a.m. . UTI: U/a w/ UTI, continue w/ IV Abx as above, follow up urine cultures. . COPD: Chronic Obstructive Respiratory Failure w/ Acute Exacerbation. S/p Solu-Medrol in ER, will continue w/ Solu-Medrol, DuoNeb q4h and q2h prn, Symbicort. . Hypoxia: Multifactorial-COPD/PNA. O2 sat 80's upon EMS arrival, currently 92-94% on 4L NC, monitor O2. . DVT Prophylaxis: SCD/Teds. . Social work for d/c planning as needed. Problem Qualifiers (1) Sepsis: Qualified Code: A41.9 - Sepsis, due to unspecified organism Parvin Hammond MD Jun 07, 2016 16:02
[2016-06-07] MEDS: AMITRIPTYLINE HCL 50 MG TAB PO SCH (20:59)
[2016-06-07] MEDS: GABAPENTIN 300 MG CAP PO SCH (22:46)
[2016-06-08] VITALS (10 sets, daily range): BP systolic 119–160; BP diastolic 56–77; PULSE 80–98; RESP 18–22; TEMP 97.2–97.8; O2SAT 93–95
[2016-06-08] MEDS: methylPREDNISolone SOD SUCC 40 MG/1 ML VIAL IV PUSH SCH ×4 (00:03→18:32)
[2016-06-08] MEDS: VANCOMYCIN 1,500 MG/NS 500 ML IV SCH ×4 (00:03→14:34)
[2016-06-08] MEDS: QUEtiapine FUMARATE 100 MG TAB PO SCH ×3 (06:02→21:40)
[2016-06-08] MEDS: SODIUM CHLORIDE 0.9% FLUSH 10 ML FLUSH IV FLUSH PRN (06:02)
[2016-06-08 07:20] LABS: AUTOMATED NEUTROPHIL # 13.1 TH/MM3 (1.8-7.7); BASOPHIL % 0.1 % (0.0-2.0); HEMATOCRIT 39.2 % (35.0-46.0); HEMO FLAGS DIFF FINAL; LYMPHOCYTE # 0.7 TH/MM3 (1.0-4.8); MEAN CELL VOLUME 84.9 FL (80.0-100.0); MEAN CORPUSCULAR HEMOGLOBIN 26.9 PG (27.0-34.0); MEAN CORPUSCULAR HGB CONC 31.8 % (32.0-36.0); NEUT % 91.9 % (16.0-70.0); PLATELET COUNT 195 TH/MM3 (150-450); RED BLOOD COUNT 4.62 MIL/MM3 (4.00-5.30); RED CELL DISTRIBUTION WIDTH 15.1 % (11.6-17.2); WHITE BLOOD COUNT 14.2 TH/MM3 (4.0-11.0)
[2016-06-08 07:45] LABS: BICARBONATE 34.8 MEQ/L (21.0-32.0); INDIRECT BILIRUBIN 0.2 MG/DL (0.0-0.8); TOTAL BILIRUBIN ADULT 0.3 MG/DL (0.2-1.0)
[2016-06-08] MEDS: RESP: ALBUTEROL 2.5 MG/IPRATROPIUM 0.5 MG NEB (SCH) NEB ×4 (08:15→20:45)
[2016-06-08] MEDS ORDERED: GABAPENTIN 300 MG CAP PO SCH (09:00)
--- NOTE | 2016-06-08 09:44 | RADRPT ---
EXAM DATE/TIME: 06/08/2016 08:14 [facility] COMPARISON: CT ABDOMEN & PELVIS W CONTRAST, February 28, 2016, 14:07. INDICATIONS : Abnormal labs. MEDICAL HISTORY : Methicillin-resistant Staphylococcus aureus. Gastroesophageal reflux disease. Chronic obstructive pul monary disease. Diverticulitis. Herniated disk. Anemia. SURGICAL HISTORY : Colostomy. Gastric bypass. ENCOUNTER: Initial ACUITY: 1 day PAIN SCORE: 1/10 LOCATION: Right upper quadrant MEASUREMENTS: LIVER: 20.5 cm length COMMON DUCT: 6 mm RIGHT KIDNEY: 10.6 x 4.2 x 5.3 cm SPLEEN: 15.2 cm length FINDINGS: LIVER: The liver is enlarged and echogenic. COMMON DUCT: No intraluminal mass or stone visualized. GALLBLADDER: The patient is status post cholecystectomy. The technologist identified a cystic area in the right up per quadrant which is likely related to bowel. The patient has had a gastric bypass procedure and thi s may be a distended stomach remnant. Clips are clearly seen on prior CT examination. PANCREAS: The visualized portions are within normal limits. RIGHT KIDNEY: No hydronephrosis, stone or mass. SPLEEN: The spleen is enlarged. CONCLUSION: Hepatosplenomegaly with suspected hepatic steatosis. Hussein Gibbons MD on June 08, 2016 at 9:37 Board Certified Radiologist. This report was verified electronically.
[2016-06-08] MEDS: MULTIVITAMIN TAB PO SCH (10:10)
[2016-06-08] MEDS: GABAPENTIN 300 MG CAP PO SCH ×3 (10:10→18:31)
[2016-06-08] MEDS: CEFEPIME INJ 1,000 MG in SODIUM CHLORIDE 0.9% INJ 100 ML IV SCH ×2 (10:10→21:41)
[2016-06-08] MEDS: DOCUSATE SODIUM 100 MG CAP PO SCH ×2 (10:10→21:40)
[2016-06-08] MEDS: ASPIRIN 81 MG CHEW TAB CHEW SCH (10:10)
[2016-06-08] MEDS: SODIUM CHLORIDE 0.9% FLUSH 10 ML FLUSH IV FLUSH SCH ×2 (10:11→21:41)
[2016-06-08] MEDS ORDERED: PHARMACY ORDERED LAB ONE (11:45)
--- NOTE | 2016-06-08 16:18 | HHI.PR ---
Subjective Remarks laying in bed , no f/c hard to stick , she asked if she can get a picc line Objective Vitals Vital Signs Date Time Temp Pulse Resp B/P Pulse Ox O2 Delivery O2 Flow Rate FiO2 06/08/16 12:00 97.3 96 18 140/72 94 06/08/16 08:35 Nasal Cannula 4.00 06/08/16 08:16 93 Nasal Cannula 4.00 06/08/16 08:01 82 06/08/16 08:00 97.2 82 21 152/70 94 06/08/16 04:00 Nasal Cannula 4.00 Humidified 06/08/16 04:00 97.8 89 20 160/77 95 06/08/16 00:00 97.6 97 20 137/63 93 06/08/16 00:00 Nasal Cannula 4.00 Humidified 06/07/16 21:41 93 Nasal Cannula 4.00 06/07/16 20:10 71 06/07/16 20:00 97.6 100 20 128/65 93 06/07/16 20:00 Nasal Cannula 4.00 Humidified I/O 06/07/16 06/07/16 06/07/16 06/08/16 06/08/16 06/08/16 07:00 15:00 23:00 07:00 15:00 23:00 Intake Total 120 ml 1795 ml 320 ml 550 ml Output Total 650 ml 300 ml Balance -530 ml 1795 ml 320 ml 250 ml Intake Oral 120 ml 960 ml 220 ml 0 ml IV Total 835 ml 100 ml 550 ml Output Urine Total 650 ml 300 ml Stool Total 0 ml # Voids 3 1 1 # Bowel Movements 0 0 Result Diagram: 06/08/1662806/08/16628 Objective Remarks GENERAL: This is a well-nourished, orbitally obese female well-developed patient , in no apparent distress. SKIN: No rashes, warm and dry HEAD: Atraumatic. Normocephalic. EYES: Pupils equal round and reactive. Extraocular motions intact. No scleral icterus. ENT: Nose without bleeding, or drainage, Airway patent. NECK: Trachea midline. Supple CARDIOVASCULAR: Regular rate and rhythm without murmurs, gallops, or rubs. RESPIRATORY:Diminished breath sounds mostly due to body habitus with bilateral wheezes GASTROINTESTINAL: Abdomen soft, non-tender, nondistended. Positive bowel sounds MUSCULOSKELETAL: Extremities without clubbing, cyanosis, or edema. Pedal pulses appreciated NEUROLOGICAL: Awake and alert. Moves all extremity. Normal speech.no focal neurological deficit A/P Problem List: (1) Sepsis ICD Code: A41.9 Status: Acute (2) PNA (pneumonia) ICD Code: J18.9 Status: Acute (3) UTI (urinary tract infection) ICD Code: N39.0 Status: Acute (4) Hypoxia ICD Code: R09.02 Status: Acute (5) COPD (chronic obstructive pulmonary disease) ICD Code: J44.9 Status: Acute Assessment and Plan 06/08: Patient has been hard to stick she asked for PICC line for going to continue her iv antibiotic . Sepsis: Temp 101.0, HR 101, WBC 12.2, Source-PNA/UTI. S/p Blood/Urine cultures, Vanc/Zosyn in ER. Will follow up cultures, continue w/ IV Abx. . PNA: CXR w/ worsening airspace disease right upper lobe, but improving airspace disease left lung and right lower lobe. continue with IV Abx as above. Sputum Cultures. DuoNeb prn. . Increased transaminases with alkaline phosphatase: Patient stated she had cholecystectomy years ago when she did bariatric surgery, liver ultrasound>> hepatosplenomegaly with liver steatosis, AST ALT alkaline phosphatase trending down, hepatitis profile pending with increasing alkaline phosphatase he need to be followed up as an outpatient to rule out PSC . UTI: U/a w/ UTI, UCX>E coli, continue w/ IV Abx as above, follow up urine cultures. . COPD: Chronic Obstructive Respiratory Failure w/ Acute Exacerbation. S/p Solu-Medrol in ER, will continue w/ Solu-Medrol, DuoNeb q4h and q2h prn, Symbicort. . Hypoxia: Multifactorial-COPD/PNA. O2 sat 80's upon EMS arrival, currently 92-94% on 4L NC, monitor O2. . DVT Prophylaxis: SCD/Teds. . Social work for d/c planning as needed. Problem Qualifiers (1) Sepsis: Qualified Code: A41.9 - Sepsis, due to unspecified organism Parvin Hammond MD Jun 08, 2016 16:18
[2016-06-08] MEDS: AMITRIPTYLINE HCL 50 MG TAB PO SCH (21:40)
[2016-06-09] VITALS (8 sets, daily range): BP systolic 120–155; BP diastolic 57–73; PULSE 73–99; RESP 18–20; TEMP 97.5–98.2; O2SAT 92–96
[2016-06-09] MEDS: VANCOMYCIN 1,500 MG/NS 500 ML IV SCH ×6 (00:24→23:08)
[2016-06-09] MEDS: methylPREDNISolone SOD SUCC 40 MG/1 ML VIAL IV PUSH SCH ×5 (00:25→23:07)
[2016-06-09] MEDS: SODIUM CHLORIDE 0.9% FLUSH 10 ML FLUSH IV FLUSH PRN ×2 (00:25→23:08)
[2016-06-09] MEDS: QUEtiapine FUMARATE 100 MG TAB PO SCH ×3 (06:34→21:19)
[2016-06-09] MEDS: ASPIRIN 81 MG CHEW TAB CHEW SCH (08:38)
[2016-06-09] MEDS: SODIUM CHLORIDE 0.9% FLUSH 10 ML FLUSH IV FLUSH SCH ×2 (08:39→21:20)
[2016-06-09] MEDS: GABAPENTIN 300 MG CAP PO SCH ×3 (08:39→17:03)
[2016-06-09] MEDS: DOCUSATE SODIUM 100 MG CAP PO SCH ×2 (08:39→21:19)
[2016-06-09] MEDS: CEFEPIME INJ 1,000 MG in SODIUM CHLORIDE 0.9% INJ 100 ML IV SCH ×2 (08:39→21:19)
[2016-06-09] MEDS: MULTIVITAMIN TAB PO SCH (08:39)
[2016-06-09] MEDS: RESP: ALBUTEROL 2.5 MG/IPRATROPIUM 0.5 MG NEB (SCH) NEB ×4 (08:56→20:43)
--- NOTE | 2016-06-09 18:08 | HHI.PR ---
Subjective Remarks Laying in bed comfortably Stated still having cough bringing cannot do much phlegm Afebrile Continue iv antibiotic Objective Vitals Vital Signs Date Time Temp Pulse Resp B/P Pulse Ox O2 Delivery O2 Flow Rate FiO2 06/09/16 16:00 97.7 99 18 145/73 93 06/09/16 12:00 97.8 84 20 155/71 93 06/09/16 08:59 93 Nasal Cannula 4.00 06/09/16 08:00 80 06/09/16 08:00 97.7 73 18 133/65 93 06/09/16 08:00 Nasal Cannula 4.00 Humidified 06/09/16 04:40 97.5 88 20 148/68 94 06/09/16 00:00 Nasal Cannula 4.00 Humidified 06/09/16 00:00 98.1 76 19 120/60 94 06/08/16 20:47 95 Nasal Cannula 4.00 06/08/16 20:40 97.2 80 20 119/56 93 06/08/16 20:40 Nasal Cannula 4.00 Humidified 06/08/16 20:19 98 I/O 06/08/16 06/08/16 06/08/16 06/09/16 06/09/16 06/09/16 07:00 15:00 23:00 07:00 15:00 23:00 Intake Total 550 ml 480 ml 100 ml 550 ml 480 ml Output Total 300 ml 1000 ml Balance 250 ml 480 ml 100 ml 550 ml -520 ml Intake Oral 0 ml 480 ml 480 ml IV Total 550 ml 100 ml 550 ml Output Urine Total 300 ml 1000 ml Stool Total 0 ml # Voids 1 3 # Bowel Movements 0 Result Diagram: 06/08/16 0629 06/09/16 08 Objective Remarks GENERAL: This is a well-nourished, orbitally obese female well-developed patient , in no apparent distress. SKIN: No rashes, warm and dry HEAD: Atraumatic. Normocephalic. EYES: Pupils equal round and reactive. Extraocular motions intact. No scleral icterus. ENT: Nose without bleeding, or drainage, Airway patent. NECK: Trachea midline. Supple CARDIOVASCULAR: Regular rate and rhythm without murmurs, gallops, or rubs. RESPIRATORY: Diminished breath sounds mostly due to body habitus with bilateral wheezes GASTROINTESTINAL: Abdomen soft, non-tender, nondistended. Positive bowel sounds MUSCULOSKELETAL: Extremities without clubbing, cyanosis, or edema. Pedal pulses appreciated NEUROLOGICAL: Awake and alert. Moves all extremity. Normal speech.no focal neurological deficit A/P Problem List: (1) Sepsis ICD Code: A41.9 Status: Acute (2) PNA (pneumonia) ICD Code: J18.9 Status: Acute (3) UTI (urinary tract infection) ICD Code: N39.0 Status: Acute (4) Hypoxia ICD Code: R09.02 Status: Acute (5) COPD (chronic obstructive pulmonary disease) ICD Code: J44.9 Status: Acute Assessment and Plan 06/08: Patient has been hard to stick she asked for PICC line for going to continue her iv antibiotic 06/09: Still having cough, we'll continue iv antibiotic for another day A/P: . Sepsis: Temp 101.0, HR 101, WBC 12.2, Source-PNA/UTI. S/p Blood/Urine cultures, Vanc/Zosyn in ER. Will follow up cultures, continue w/ IV Abx. . PNA: CXR w/ worsening airspace disease right upper lobe, patient with recent history of MRSA pneumonia in February 2016 but improving airspace disease left lung and right lower lobe. continue with IV Abx as above. Sputum Cultures. DuoNeb prn. . Increased transaminases with alkaline phosphatase: Patient stated she had cholecystectomy years ago when she did bariatric surgery, liver ultrasound>> hepatosplenomegaly with liver steatosis, AST ALT alkaline phosphatase trending down, hepatitis profile pending with increasing alkaline phosphatase he need to be followed up as an outpatient to rule out PSC . UTI: U/a w/ UTI, UCX>E coli, continue w/ IV Abx as above, follow up urine cultures. . COPD: Chronic Obstructive Respiratory Failure w/ Acute Exacerbation. S/p Solu-Medrol in ER, will continue w/ Solu-Medrol, DuoNeb q4h and q2h prn, Symbicort. . Hypoxia: Multifactorial-COPD/PNA. O2 sat 80's upon EMS arrival, currently 92-94% on 4L NC, monitor O2. . DVT Prophylaxis: SCD/Teds. . Social work for d/c planning as needed. Problem Qualifiers (1) Sepsis: Qualified Code: A41.9 - Sepsis, due to unspecified organism Parvin Hammond MD Jun 09, 2016 18:08
[2016-06-09] MEDS: AMITRIPTYLINE HCL 50 MG TAB PO SCH (21:19)
[2016-06-09 21:43] LABS: AUTOMATED NEUTROPHIL # 9.9 TH/MM3 (1.8-7.7); BASOPHIL % 0.3 % (0.0-2.0); HEMATOCRIT 40.4 % (35.0-46.0); LYMPH % 7.9 % (9.0-44.0); LYMPHOCYTE # 0.9 TH/MM3 (1.0-4.8); MEAN CELL VOLUME 84.2 FL (80.0-100.0); MEAN CORPUSCULAR HEMOGLOBIN 26.9 PG (27.0-34.0); MONO % 4.2 % (0.0-8.0); NEUT % 87.6 % (16.0-70.0); PLATELET COUNT 209 TH/MM3 (150-450); RED CELL DISTRIBUTION WIDTH 14.8 % (11.6-17.2); WHITE BLOOD COUNT 11.3 TH/MM3 (4.0-11.0)
[2016-06-09 21:50] LABS: HEMO FLAGS AUTO DIFF
[2016-06-09 22:26] LABS: BANDS 3 % (0-6); METAMYELOCYTES 2 % (0-1); NEUTROPHIL # MANUAL DIFF 9.8 TH/MM3 (1.8-7.7); POLYS (SEG NEUTROPHILS) 82 % (16-70); WBC DIFF SAMPLE 100
[2016-06-09 22:27] LABS: OVALOCYTES 1+ (NORMAL); PLATELET ESTIMATE SMEAR NORMAL (NORMAL); PLATELET MORPHOLOGY NORMAL (NORMAL); SCAN/DIFF FINAL DIFF MANUAL; SPHEROCYTES 1+ (NORMAL)
[2016-06-10] VITALS (8 sets, daily range): BP systolic 141–174; BP diastolic 65–94; PULSE 58–100; RESP 16–22; TEMP 97.3–98.9; O2SAT 93–95
[2016-06-10] MEDS: QUEtiapine FUMARATE 100 MG TAB PO SCH ×3 (05:24→20:44)
[2016-06-10] MEDS: methylPREDNISolone SOD SUCC 40 MG/1 ML VIAL IV PUSH SCH ×3 (05:25→20:45)
[2016-06-10 08:28] LABS: AUTOMATED NEUTROPHIL # 11.2 TH/MM3 (1.8-7.7); BASOPHIL # 0.2 TH/MM3 (0-0.2); BASOPHIL % 1.3 % (0.0-2.0); EOSINOPHIL % 0.1 % (0.0-4.0); HEMATOCRIT 42.2 % (35.0-46.0); LYMPH % 7.4 % (9.0-44.0); MEAN CELL VOLUME 84.1 FL (80.0-100.0); MEAN CORPUSCULAR HEMOGLOBIN 27.2 PG (27.0-34.0); MEAN CORPUSCULAR HGB CONC 32.4 % (32.0-36.0); MONO % 4.2 % (0.0-8.0); PLATELET COUNT 166 TH/MM3 (150-450); RED BLOOD COUNT 5.03 MIL/MM3 (4.00-5.30); RED CELL DISTRIBUTION WIDTH 14.3 % (11.6-17.2); WHITE BLOOD COUNT 12.9 TH/MM3 (4.0-11.0)
[2016-06-10 08:54] LABS: HEMO FLAGS AUTO DIFF
[2016-06-10] MEDS: RESP: ALBUTEROL 2.5 MG/IPRATROPIUM 0.5 MG NEB (SCH) NEB ×4 (08:55→19:30)
[2016-06-10 08:56] LABS: PLATELET ESTIMATE SMEAR NORMAL (NORMAL); PLATELET MORPHOLOGY ENLARGED (NORMAL); SCAN/DIFF AUTO DIFF CONFIRMED
[2016-06-10] MEDS: GABAPENTIN 300 MG CAP PO SCH ×3 (09:42→17:53)
[2016-06-10] MEDS: CEFEPIME INJ 1,000 MG in SODIUM CHLORIDE 0.9% INJ 100 ML IV SCH ×2 (09:42→20:44)
[2016-06-10] MEDS: DOCUSATE SODIUM 100 MG CAP PO SCH ×2 (09:42→20:45)
[2016-06-10] MEDS: MULTIVITAMIN TAB PO SCH (09:42)
[2016-06-10] MEDS: ASPIRIN 81 MG CHEW TAB CHEW SCH (09:42)
[2016-06-10] MEDS: SODIUM CHLORIDE 0.9% FLUSH 10 ML FLUSH IV FLUSH SCH ×2 (09:43→20:45)
[2016-06-10] MEDS: VANCOMYCIN 1,500 MG/NS 500 ML IV SCH ×4 (13:40→23:47)
--- NOTE | 2016-06-10 17:10 | HHI.PR ---
Subjective Remarks Still having significant wheezing, on O2 nasal cannula Stated she is not able to cough up everything Afebrile we'll continue iv antibiotic Objective Vitals Vital Signs Date Time Temp Pulse Resp B/P Pulse Ox O2 Delivery O2 Flow Rate FiO2 06/10/16 16:00 98.9 85 22 141/65 94 06/10/16 15:37 94 Nasal Cannula 4.00 06/10/16 12:00 97.6 73 21 163/74 94 06/10/16 08:00 97.6 80 21 174/82 93 06/10/16 08:00 Nasal Cannula 4.00 Humidified 06/10/16 08:00 58 06/10/16 04:00 97.3 75 16 150/80 94 06/10/16 00:00 97.6 92 18 164/69 95 06/09/16 20:44 96 Nasal Cannula 4.00 06/09/16 20:00 Nasal Cannula 4.00 Humidified 06/09/16 20:00 98.2 99 20 132/57 92 I/O 06/09/16 06/09/16 06/09/16 06/10/16 06/10/16 06/10/16 07:00 15:00 23:00 07:00 15:00 23:00 Intake Total 550 ml 480 ml 240 ml 0 ml Output Total 1000 ml 800 ml 700 ml Balance 550 ml -520 ml -560 ml -700 ml Intake Oral 480 ml 240 ml 0 ml IV Total 550 ml Output Urine Total 1000 ml 800 ml 700 ml # Bowel Movements 0 0 0 Result Diagram: 06/10/16 0730 06/09/16 0821 Objective Remarks GENERAL: This is a well-nourished, orbitally obese female well-developed patient , in no apparent distress. SKIN: No rashes, warm and dry HEAD: Atraumatic. Normocephalic. EYES: Pupils equal round and reactive. Extraocular motions intact. No scleral icterus. ENT: Nose without bleeding, or drainage, Airway patent. NECK: Trachea midline. Supple CARDIOVASCULAR: Regular rate and rhythm without murmurs, gallops, or rubs. RESPIRATORY: Fair air entry bilaterally. Positive wheezing bilaterally GASTROINTESTINAL: Abdomen soft, non-tender, nondistended. Positive bowel sounds MUSCULOSKELETAL: Extremities without clubbing, cyanosis, or edema. Pedal pulses appreciated NEUROLOGICAL: Awake and alert. Moves all extremity. Normal speech.no focal neurological deficit A/P Problem List: (1) Sepsis ICD Code: A41.9 Status: Acute (2) PNA (pneumonia) ICD Code: J18.9 Status: Acute (3) UTI (urinary tract infection) ICD Code: N39.0 Status: Acute (4) Hypoxia ICD Code: R09.02 Status: Acute (5) COPD (chronic obstructive pulmonary disease) ICD Code: J44.9 Status: Acute Assessment and Plan 06/08: Patient has been hard to stick she asked for PICC line for going to continue her iv antibiotic 06/09: Still having cough, we'll continue iv antibiotic for another day 06/10: Still wheezing but slightly better on O2 nasal cannula, will decrease Solu -Medrol to twice a day, continue iv antibiotic, monitor clinical course A/P: . Sepsis: Temp 101.0, HR 101, WBC 12.2, Source-PNA/UTI. S/p Blood/Urine cultures, Vanc/Zosyn in ER. Will follow up cultures, continue w/ IV Abx. . PNA: CXR w/ worsening airspace disease right upper lobe, patient with recent history of MRSA pneumonia in February 2016 but improving airspace disease left lung and right lower lobe. continue with IV Abx as above. Sputum Cultures. DuoNeb prn. . Increased transaminases with alkaline phosphatase: Patient stated she had cholecystectomy years ago when she did bariatric surgery, liver ultrasound>> hepatosplenomegaly with liver steatosis, AST ALT alkaline phosphatase trending down, hepatitis profile pending with increasing alkaline phosphatase he need to be followed up as an outpatient to rule out PSC . UTI: U/a w/ UTI, UCX>E coli, continue w/ IV Abx as above, follow up urine cultures. . COPD: Chronic Obstructive Respiratory Failure w/ Acute Exacerbation. S/p Solu-Medrol in ER, will continue w/ Solu-Medrol, DuoNeb q4h and q2h prn, Symbicort. . Hypoxia: Multifactorial-COPD/PNA. O2 sat 80's upon EMS arrival, currently 92-94% on 4L NC, monitor O2. . DVT Prophylaxis: SCD/Teds. . Social work for d/c planning as needed. Problem Qualifiers (1) Sepsis: Qualified Code: A41.9 - Sepsis, due to unspecified organism Parvin Hammond MD Jun 10, 2016 17:09
[2016-06-10] MEDS: AMITRIPTYLINE HCL 50 MG TAB PO SCH (20:45)
[2016-06-11] VITALS (8 sets, daily range): BP systolic 118–162; BP diastolic 57–86; PULSE 71–90; RESP 16–22; TEMP 97.4–97.9; O2SAT 94–99
[2016-06-11] MEDS: QUEtiapine FUMARATE 100 MG TAB PO SCH ×3 (05:43→20:28)
[2016-06-11] MEDS: MORPHINE SULFATE 4 MG/ML INJ IV PRN ×3 (05:44→20:30)
[2016-06-11] MEDS: SODIUM CHLORIDE 0.9% FLUSH 10 ML FLUSH IV FLUSH PRN (05:44)
[2016-06-11] MEDS: RESP: ALBUTEROL 2.5 MG/IPRATROPIUM 0.5 MG NEB (SCH) NEB ×2 (08:00→19:53)
[2016-06-11] MEDS: methylPREDNISolone SOD SUCC 40 MG/1 ML VIAL IV PUSH SCH (09:52)
[2016-06-11] MEDS: MULTIVITAMIN TAB PO SCH (09:52)
[2016-06-11] MEDS: GABAPENTIN 300 MG CAP PO SCH ×3 (09:52→17:19)
[2016-06-11] MEDS: DOCUSATE SODIUM 100 MG CAP PO SCH ×2 (09:52→20:28)
[2016-06-11] MEDS: ASPIRIN 81 MG CHEW TAB CHEW SCH (09:52)
[2016-06-11] MEDS: CEFEPIME INJ 1,000 MG in SODIUM CHLORIDE 0.9% INJ 100 ML IV SCH (09:53)
[2016-06-11] MEDS: VANCOMYCIN 1,500 MG/NS 500 ML IV SCH ×2 (11:24)
[2016-06-11] MEDS ORDERED: LEVA750T PO (11:40)
[2016-06-11] MEDS ORDERED: PRED10PA2 PO (11:40)
[2016-06-11] MEDS ORDERED: SYMB80AE INH (11:42)
--- NOTE | 2016-06-11 11:44 | HHI.PR ---
Subjective Remarks Stated she still coughing up whitish phlegm, no fever I discussed with her switching her iv antibiotic to by mouth as well as diabetes Solu-Medrol [place] monitor and discharge in a.m. Patient expressed being little not happy about smoking in the rehabilitation where she is going to, will try to talk to casework manager regarding that but mostly discharge in a.m. if continued to be stable. We considered patient is her second time pneumonia, will make sure she stable on by mouth medication prior to discharge Objective Vitals Vital Signs Date Time Temp Pulse Resp B/P Pulse Ox O2 Delivery O2 Flow Rate FiO2 06/11/16 08:46 95 Nasal Cannula 3.00 06/11/16 08:00 97.7 71 18 146/86 94 06/11/16 05:26 97.4 72 16 135/75 95 06/11/16 01:28 97.4 78 18 133/74 96 06/10/16 20:54 98.3 98 16 153/94 94 06/10/16 20:00 Nasal Cannula 4.00 06/10/16 19:50 100 06/10/16 16:00 98.9 85 22 141/65 94 06/10/16 15:37 94 Nasal Cannula 4.00 06/10/16 12:00 97.6 73 21 163/74 94 I/O 06/10/16 06/10/16 06/10/16 06/11/16 06/11/16 06/11/16 07:00 15:00 23:00 07:00 15:00 23:00 Intake Total 0 ml 1200 ml 400 ml 1681 ml Output Total 700 ml 2550 ml 500 ml 650 ml Balance -700 ml -1350 ml -100 ml 1031 ml Intake Oral 0 ml 1200 ml 400 ml 360 ml IV Total 1321 ml Output Urine Total 700 ml 2550 ml 500 ml 650 ml # Bowel Movements 0 1 0 0 Result Diagram: 06/10/16 0730 06/11/16 0713 Objective Remarks GENERAL: This is a well-nourished, orbitally obese female well-developed patient , in no apparent distress. SKIN: No rashes, warm and dry HEAD: Atraumatic. Normocephalic. EYES: Pupils equal round and reactive. Extraocular motions intact. No scleral icterus. ENT: Nose without bleeding, or drainage, Airway patent. NECK: Trachea midline. Supple CARDIOVASCULAR: Regular rate and rhythm without murmurs, gallops, or rubs. RESPIRATORY:Diminished breath sounds mostly due to body habitus with bilateral wheezes GASTROINTESTINAL: Abdomen soft, non-tender, nondistended. Positive bowel sounds MUSCULOSKELETAL: Extremities without clubbing, cyanosis, or edema. Pedal pulses appreciated NEUROLOGICAL: Awake and alert. Moves all extremity. Normal speech.no focal neurological deficit A/P Problem List: (1) Sepsis ICD Code: A41.9 Status: Acute (2) PNA (pneumonia) ICD Code: J18.9 Status: Acute (3) UTI (urinary tract infection) ICD Code: N39.0 Status: Acute (4) Hypoxia ICD Code: R09.02 Status: Acute (5) COPD (chronic obstructive pulmonary disease) ICD Code: J44.9 Status: Acute Assessment and Plan 06/08: Patient has been hard to stick she asked for PICC line for going to continue her iv antibiotic 06/09: Still having cough, we'll continue iv antibiotic for another day 06/10: Still wheezing but slightly better on O2 nasal cannula, will decrease Solu -Medrol to twice a day, continue iv antibiotic, monitor clinical course 06/11: We'll switch cefepime and Vanco to Levaquin 750 daily, switch Solu-Medrol to by mouth prednisone, patient said on 3 L nasal cannula continue weaning process, hopefully discharge to SNF tomorrow if no fever and continue to be stable Adding Symbicort to her medical regimen for maintenance COPD management A/P: . Sepsis: Temp 101.0, HR 101, WBC 12.2, Source-PNA/UTI. S/p Blood/Urine cultures, Vanc/Zosyn in ER. Will follow up cultures, continue w/ IV Abx. . PNA: CXR w/ worsening airspace disease right upper lobe, patient with recent history of MRSA pneumonia in February 2016 but improving airspace disease left lung and right lower lobe. continue with IV Abx as above. Sputum Cultures. DuoNeb prn. . Increased transaminases with alkaline phosphatase: Patient stated she had cholecystectomy years ago when she did bariatric surgery, liver ultrasound>> hepatosplenomegaly with liver steatosis, AST ALT alkaline phosphatase trending down, hepatitis profile pending with increasing alkaline phosphatase he need to be followed up as an outpatient to rule out PSC . UTI: U/a w/ UTI, UCX>E coli, continue w/ IV Abx as above, follow up urine cultures. . COPD: Chronic Obstructive Respiratory Failure w/ Acute Exacerbation. S/p Solu-Medrol in ER, will continue w/ Solu-Medrol, DuoNeb q4h and q2h prn, Symbicort. . Hypoxia: Multifactorial-COPD/PNA. O2 sat 80's upon EMS arrival, currently 92-94% on 4L NC, monitor O2. . DVT Prophylaxis: SCD/Teds. . Social work for d/c planning as needed. Problem Qualifiers (1) Sepsis: Qualified Code: A41.9 - Sepsis, due to unspecified organism Parvin Hammond MD Jun 11, 2016 11:44
[2016-06-11] MEDS: BUDESONIDE-FORMOTEROL 80/4.5 MCG INHALER INH SCH ×2 (11:45→20:31)
[2016-06-11] MEDS: LEVOFLOXACIN 750 MG PREMIX INJ 150 ML IV SCH (12:55)
--- NOTE | 2016-06-11 13:51 | HHI.DS ---
Discharge Summary Admission Date Jun 06, 2016 at 20:36 Discharge Date: Jun 12, 2016 Admitting Diagnosis Sepsis (PNA), COPD Exacerbation, Hypoxia (1) Sepsis ICD Code: A41.9 (2) PNA (pneumonia) ICD Code: J18.9 (3) UTI (urinary tract infection) ICD Code: N39.0 (4) Hypoxia ICD Code: R09.02 (5) COPD (chronic obstructive pulmonary disease) ICD Code: J44.9 Procedures see below Brief History - From Admission This is a 56-year-old female with a PMH of Anxiety, Depression, COPD and GERD who was sent to the ER from [facility] secondary to complaints of SOB, hypoxia and fever of 101.0. Also reports productive cough w/ yellow/green colored sputum. Denies chest pain or sick contacts. EMS reported O2 sat 80%, improved w/ 4L NC, currently at 96%. On arrival, BP 128/58, HR 110, O2 sat 92% on 4L NC. WBC 12.2. GFR 83. Troponin negative. Lactic Acid 0.9. UA positive for UTI. CXR with worsening airspace disease right upper lobe and improvement of airspace disease left lung and right lower lobe. S/p Blood/ Urine cultures, Vanc/Zosyn, Solu-Medrol and DuoNeb in ER. Of note, pt w/ previous admit 02/21-03/27/16 w/ Sepsis, PNA and Respiratory Failure requiring Intubation, d/c'd to [facility] at time of d/c. CBC/BMP: 06/10/16 0730 06/11/16 0713 Significant Findings Laboratory Tests Test 06/09/16 06/10/16 06/11/16 20:35 07:30 07:13 White Blood Count 11.3 TH/MM3 12.9 TH/MM3 (4.0-11.0) (4.0-11.0) Mean Corpuscular Hemoglobin 26.9 PG (27.0-34.0) Neutrophils (%) (Auto) 87.6 % 87.0 % (16.0-70.0) (16.0-70.0) Lymphocytes (%) (Auto) 7.9 % 7.4 % (9.0-44.0) (9.0-44.0) Neutrophils # (Auto) 9.9 TH/MM3 11.2 TH/MM3 (1.8-7.7) (1.8-7.7) Lymphocytes # (Auto) 0.9 TH/MM3 (1.0-4.8) Neutrophils % (Manual) 82 % (16-70) Lymphocytes % 8 % (9-44) Neutrophils # (Manual) 9.8 TH/MM3 (1.8-7.7) Metamyelocytes 2 % (0-1) Spherocytes 1+ (NORMAL) Ovalocytes 1+ (NORMAL) Platelet Morphology Comment ENLARGED (NORMAL) Creatinine 0.46 MG/DL (0.50-1.00) PE at Discharge GENERAL: This is a well-nourished, orbitally obese female well-developed patient , in no apparent distress. SKIN: No rashes, warm and dry HEAD: Atraumatic. Normocephalic. EYES: Pupils equal round and reactive. Extraocular motions intact. No scleral icterus. ENT: Nose without bleeding, or drainage, Airway patent. NECK: Trachea midline. Supple CARDIOVASCULAR: Regular rate and rhythm without murmurs, gallops, or rubs. RESPIRATORY:Diminished breath sounds mostly due to body habitus with bilateral wheezes GASTROINTESTINAL: Abdomen soft, non-tender, nondistended. Positive bowel sounds MUSCULOSKELETAL: Extremities without clubbing, cyanosis, or edema. Pedal pulses appreciated NEUROLOGICAL: Awake and alert. Moves all extremity. Normal speech.no focal neurological deficit Hospital Course 56 y/o WF admitted with Sepsis: Temp 101.0, HR 101, WBC 12.2, Source-PNA/UTI. S/p Blood/Urine cultures, Vanc/Zosyn in ER. cultures, IV Abx. she was found to have a PNA with wheezing CXR w/ worsening airspace disease right upper lobe, patient with recent history of MRSA pneumonia in February 2016 but improving airspace disease left lung and right lower lobe. IV Abx . Sputum Cultures. DuoNeb pt had Increased transaminases with alkaline phosphatase: Patient stated she had cholecystectomy years ago when she did bariatric surgery, liver ultrasound> > hepatosplenomegaly with liver steatosis, AST ALT alkaline phosphatase trending down, hepatitis profile pending with increasing alkaline phosphatase he need to be followed up as an outpatient to rule out other etiology also she had UTI: U/a w/ UTI, UCX>E coli, continue w/ IV Abx COPD: Chronic Obstructive Respiratory Failure w/ Acute Exacerbation. S/p Solu- Medrolswitched [place] prednis[place] , DuoNeb q4h and q2h prn, Symbicort added at discharge this is second pna infx so pt placed on HAP abx cefepime and Vanco switched to Levaquin 750 dailyat dc , switch Solu-Medrol to by mouth prednisone, patient said on 3 L nasal cannula continue weaning process, discharge to SNF [id number] encounter performed with the patient on discharge day, as well as physical exam, summary of hospitalization course and postdischarge plan has been D/W the patient. D/W nurse D/W case investigator. Discharge medications reviewed and printed and signed, post discharge follow up visit with PCP and other specialist as well as Brief hospital course and discharge summary has been placed. Pt Condition on Discharge: Fair Discharge Disposition: Discharge to SNF Discharge Time: > 30 minutes Discharge Instructions DIET: Follow Instructions for: Heart Healthy Diet, Diabetic Diet Activities you can perform: See Additionl Instruction Other Activity Instructions: per PT New Medications: Budesonide-Formoterol Inh (Symbicort Inh) 80-4.5 Mcg/Act Aero 2 PUFF INH Q12HR Asthma Management #1 Ref 0 INHALER Levofloxacin (Levaquin) 750 Mg Tab 750 MG PO DAILY Infection #10 Ref 0 TAB Prednisone (48) 10 mg tab Dose Pack (Prednisone (48) 10 mg tab Dose Pack) 10 Mg Dspk 10 MG PO DIRECTED Inflammation #1 Ref 0 DSPK Continued Medications: Albuterol Neb (Albuterol Neb) 2.5 Mg/3 Ml Neb 2.5 MG NEB Q8HR NEB PRN SHORTNESS OF BREATH NEBULE Amitriptyline (Amitriptyline) 50 Mg Tab 50 MG PO HS Control Depression TAB Aspirin (Aspirin) 81 Mg Chew 81 MG CHEW DAILY TAB Ipratropium-Albuterol Neb (Duoneb) 0.5-2.5 Mg/3 Ml Neb 1 AMPULE INH Q6HR PRN WHEEZING Days 7 ML Quetiapine (Quetiapine) 100 Mg Tab 100 MG PO Q8HR PSYC Days 30 TAB NemParvin fernandez MD Jun 11, 2016 13:51
[2016-06-11] MEDS: RESP: ALBUTEROL 2.5 MG/IPRATROPIUM 0.5 MG NEB (PRN) NEB (16:11)
[2016-06-11] MEDS: predniSONE 20 MG TAB PO SCH (20:28)
[2016-06-11] MEDS: AMITRIPTYLINE HCL 50 MG TAB PO SCH (20:30)
[2016-06-11] MEDS: SODIUM CHLORIDE 0.9% FLUSH 10 ML FLUSH IV FLUSH SCH (20:31)
[2016-06-12] VITALS: BP 125/59; PULSE 86; RESP 20; TEMP 98.1; O2SAT 93
[2016-06-12] MEDS: MORPHINE SULFATE 4 MG/ML INJ IV PRN ×3 (00:43→09:16)
[2016-06-12 02:31] VITALS: PULSE 88
[2016-06-12 04:00] VITALS: BP 130/78; PULSE 71; RESP 20; TEMP 96.7; O2SAT 92
[2016-06-12] MEDS: QUEtiapine FUMARATE 100 MG TAB PO SCH ×2 (05:15→13:00)
[2016-06-12 07:39] VITALS: O2SAT 96
[2016-06-12] MEDS: RESP: ALBUTEROL 2.5 MG/IPRATROPIUM 0.5 MG NEB (SCH) NEB ×2 (07:39→11:16)
[2016-06-12 08:00] VITALS: BP 130/68; PULSE 78; PULSE 90; RESP 20; TEMP 97.7; O2SAT 95
[2016-06-12] MEDS: ASPIRIN 81 MG CHEW TAB CHEW SCH (09:15)
[2016-06-12] MEDS: GABAPENTIN 300 MG CAP PO SCH ×2 (09:15→11:51)
[2016-06-12] MEDS: DOCUSATE SODIUM 100 MG CAP PO SCH (09:15)
[2016-06-12] MEDS: MULTIVITAMIN TAB PO SCH (09:15)
[2016-06-12] MEDS: predniSONE 20 MG TAB PO SCH (09:15)
[2016-06-12] MEDS ORDERED: PHARMACY ORDERED LAB ONE (11:45)
[2016-06-12] MEDS: LEVOFLOXACIN 750 MG PREMIX INJ 150 ML IV SCH (11:52)
--- NOTE | 2016-06-12 11:55 | HHI.PR ---
Subjective Remarks No acute issue patient laying in bed, I discussed with the rehabilitation agent who was at the bedside I instructed them to give the patient in a clean room well vented no smoke Objective Vitals Vital Signs Date Time Temp Pulse Resp B/P Pulse Ox O2 Delivery O2 Flow Rate FiO2 06/12/16 08:00 97.7 90 20 130/68 95 06/12/16 07:39 96 Nasal Cannula 3.00 06/12/16 05:30 18 06/12/16 04:22 16 06/12/16 04:00 96.7 71 20 130/78 92 06/12/16 02:31 88 06/12/16 00:00 98.1 86 20 125/59 93 06/11/16 20:35 Nasal Cannula 4.00 06/11/16 20:00 97.8 86 20 150/61 97 06/11/16 19:54 95 Nasal Cannula 3.00 06/11/16 16:00 97.9 90 20 118/57 99 06/11/16 12:00 97.9 80 22 162/81 94 I/O 06/11/16 06/11/16 06/11/16 06/12/16 06/12/16 06/12/16 07:00 15:00 23:00 07:00 15:00 23:00 Intake Total 1681 ml 1200 ml 480 ml 480 ml Output Total 650 ml 2100 ml 800 ml 1000 ml Balance 1031 ml -900 ml -320 ml -520 ml Intake Oral 360 ml 1200 ml 480 ml 480 ml IV Total 1321 ml Output Urine Total 650 ml 2100 ml 800 ml 1000 ml # Bowel Movements 0 1 0 Result Diagram: 06/10/16 0730 06/11/16 0713 Objective Remarks GENERAL: This is a well-nourished, orbitally obese female well-developed patient , in no apparent distress. SKIN: No rashes, warm and dry HEAD: Atraumatic. Normocephalic. EYES: Pupils equal round and reactive. Extraocular motions intact. No scleral icterus. ENT: Nose without bleeding, or drainage, Airway patent. NECK: Trachea midline. Supple CARDIOVASCULAR: Regular rate and rhythm without murmurs, gallops, or rubs. RESPIRATORY:Diminished breath sounds mostly due to body habitus with bilateral wheezes GASTROINTESTINAL: Abdomen soft, non-tender, nondistended. Positive bowel sounds MUSCULOSKELETAL: Extremities without clubbing, cyanosis, or edema. Pedal pulses appreciated NEUROLOGICAL: Awake and alert. Moves all extremity. Normal speech.no focal neurological deficit Procedures see below A/P Problem List: (1) Sepsis ICD Code: A41.9 Status: Acute (2) PNA (pneumonia) ICD Code: J18.9 Status: Acute (3) UTI (urinary tract infection) ICD Code: N39.0 Status: Acute (4) Hypoxia ICD Code: R09.02 Status: Acute (5) COPD (chronic obstructive pulmonary disease) ICD Code: J44.9 Status: Acute Assessment and Plan 06/08: Patient has been hard to stick she asked for PICC line for going to continue her iv antibiotic 06/09: Still having cough, we'll continue iv antibiotic for another day 06/10: Still wheezing but slightly better on O2 nasal cannula, will decrease Solu -Medrol to twice a day, continue iv antibiotic, monitor clinical course 06/11: We'll switch cefepime and Vanco to Levaquin 750 daily, switch Solu-Medrol to by mouth prednisone, patient said on 3 L nasal cannula continue weaning process, hopefully discharge to SNF tomorrow if no fever and continue to be stable Adding Symbicort to her medical regimen for maintenance COPD management 06/12: Stable no acute issue plan for discharge back to rehabilitation today A/P: . Sepsis: Temp 101.0, HR 101, WBC 12.2, Source-PNA/UTI. S/p Blood/Urine cultures, Vanc/Zosyn in ER. Will follow up cultures, continue w/ IV Abx. . PNA: CXR w/ worsening airspace disease right upper lobe, patient with recent history of MRSA pneumonia in February 2016 but improving airspace disease left lung and right lower lobe. continue with IV Abx as above. Sputum Cultures. DuoNeb prn. . Increased transaminases with alkaline phosphatase: Patient stated she had cholecystectomy years ago when she did bariatric surgery, liver ultrasound>> hepatosplenomegaly with liver steatosis, AST ALT alkaline phosphatase trending down, hepatitis profile pending with increasing alkaline phosphatase he need to be followed up as an outpatient to rule out PSC . UTI: U/a w/ UTI, UCX>E coli, continue w/ IV Abx as above, follow up urine cultures. . COPD: Chronic Obstructive Respiratory Failure w/ Acute Exacerbation. S/p Solu-Medrol in ER, will continue w/ Solu-Medrol, DuoNeb q4h and q2h prn, Symbicort. . Hypoxia: Multifactorial-COPD/PNA. O2 sat 80's upon EMS arrival, currently 92-94% on 4L NC, monitor O2. . DVT Prophylaxis: SCD/Teds. . Social work for d/c planning as needed. Problem Qualifiers (1) Sepsis: Qualified Code: A41.9 - Sepsis, due to unspecified organism Parvin Hammond MD Jun 12, 2016 11:55
[2016-06-12 12:00] VITALS: BP 118/60; PULSE 79; RESP 20; TEMP 98.3; O2SAT 98
== END 2016-06-12 14:35 | DRG 871 ==
LOC: NEPE 17:37 → NEDA 20:36 → N04B 22:14
PROVIDERS: ADMIT Hospitalist; ATTEND Hospitalist
DX: A41.9 Sepsis, unspecified organism (principal); J18.9 Pneumonia, unspecified organism; J96.11 Chronic respiratory failure with hypoxia; J44.0 Chronic obstructive pulmonary disease with (acute) lower respiratory infection; N39.0 Urinary tract infection, site not specified; J44.1 Chronic obstructive pulmonary disease with (acute) exacerbation; R74.0 Nonspecific elevation of levels of transaminase and lactic acid dehydrogenase [LDH]; D64.9 Anemia, unspecified; M54.5 Low back pain; M79.2 Neuralgia and neuritis, unspecified; K21.9 Gastro-esophageal reflux disease without esophagitis; G47.30 Sleep apnea, unspecified; G89.4 Chronic pain syndrome; Z93.3 Colostomy status
CPT/HCPCS: 71010; 76705; 76937; 80048; 80053; 80074; 80076; 80202; 81001; 82550; 82565; 83605; 84484; 85007; 85025; 85027; 87040; 87077; 87086; 87186; 87804; 94640; 94664; 96374; J0456; J0692; J0696; J1956; J2270; J2920; J2930; J3370; J7030; J7040; J7050; J7512

== ENCOUNTER 2016-08-06 21:00 | Emergency (ER) | payer MEDICAID ==
[~2016-08-06] VITALS: Ht 170.2 cm; Wt 140.0 kg
[~2016-08-06 21:00] MED LIST changes: +LEVA750T PO; +PRED10PA2 PO; +SYMB80AE INH
[2016-08-06 21:08] VITALS: PULSE 99; RESP 18; TEMP 98.6; O2SAT 90
[2016-08-06] MEDS ORDERED: SODIUM CHLOR 0.9% 1000 ML INJ 1,000 ML IV SCH ×2 (21:16)
[2016-08-06] MEDS ORDERED: QUET1TAB8 PO (21:20)
[2016-08-06] MEDS ORDERED: OXYC-395 PO (21:20)
[2016-08-06] MEDS ORDERED: AMIT25TA9 PO (21:20)
[2016-08-06] MEDS ORDERED: QUET1TAB9 PO (21:20)
[2016-08-06] MEDS ORDERED: LORA-392 PO (21:20)
[2016-08-06] MEDS ORDERED: NEUR300C PO (21:20)
--- NOTE | 2016-08-06 21:22 | PD ---
HPI Chief Complaint: Fever Time Seen by Provider: 21:05 Travel History International Travel<30 days: No Contact w/Intl Traveler<30days: No Traveled to known affect area: No History of Present Illness HPI This is a 56-year-old female with history of oxygen-dependent COPD who comes via EMS from [facility] and [facility] for evaluation of fever, cough. Symptoms started this morning. She reports that the cough is productive with yellow sputum. She has had fevers in the 101 range. She has had myalgias as well as nasal congestion. She's had a decreased appetite today. Denies any chest pain, abdominal pain, nausea or vomiting, flank pain, dysuria, rash. She has no other complaints. PFSH Past Medical History Anemia: Yes Asthma: No Anxiety: Yes Depression: Yes Cancer: No Cardiovascular Problems: No COPD: Yes Cerebrovascular Accident: No Diabetes: No Diminished Hearing: No Diverticulitis: Yes Endocrine: No Gastrointestinal Disorders: Yes GERD: Yes Genitourinary: No Hiatal Hernia: No Herniated Disk: Yes Implanted Vascular Access Dvce: Yes Kidney Stones: No Medical other: Yes (patient states she has chronic pain ) Musculoskeletal: Yes Neurologic: Yes Psychiatric: Yes Reproductive: No Respiratory: Yes Migraines: No Renal Failure: No Seizures: No Sleep Apnea: Yes Thyroid Disease: No Ulcer: No ?: Not Past Surgical History Abdominal Surgery: Yes (COLOSTOMY; GASTRIC BYPASS) Cardiac Surgery: No Ear Surgery: No Endocrine Surgery: No Eye Surgery: No Genitourinary Surgery: No Gynecologic Surgery: No Oral Surgery: No Thoracic Surgery: No Other Surgery: Yes Social History Alcohol Use: No Tobacco Use: No Substance Use: No Allergies-Medications (Allergen,Severity, Reaction): Coded Allergies: Penicillin (Verified Allergy, Unknown, 02/22/16) *MDRO Multi-Drug Resistant Organism (Verified Adverse Reaction, Unknown, MRSA, 03/06/16) MRSA screen POSITIVE - 01/13/16, 02/22/15 MRSA (sputum-01/13/16, 02/25/16 & 03/03/16) ESBL k.pneumoniae (urine)-02/22/16 Reported Meds & Prescriptions Reported Meds & Active Scripts Active Prednisone 20 Mg Tab 20 Mg PO BID 5 Days Azithromycin 250 Mg Tab 250 Mg PO DIRECTED Take 2 tabs (500 mg) on day 1 then 1 tab daily x 4 days. Symbicort Inh (Budesonide/Formoterol Fumarate) 80-4.5 Mcg/Act Aero 2 Puff INH Q12HR Duoneb (Ipratropium-Albuterol Neb) 0.5-2.5 Mg/3 Ml Neb 1 Ampule INH Q6HR PRN 7 Days Reported Quetiapine (Quetiapine Fumarate) 200 Mg Tab 200 Mg PO HS Quetiapine (Quetiapine Fumarate) 100 Mg Tab 100 Mg PO DAILY Oxycodone (Oxycodone HCl) 10 Mg Tab 10 Mg PO Q8H PRN Neurontin (Gabapentin) 300 Mg Cap 300 Mg PO TID Ativan (Lorazepam) 0.5 Mg Tab 0.5 Mg PO Q12HR PRN Amitriptyline (Amitriptyline HCl) 25 Mg Tab 25 Mg PO AC BREAKFAST Multiple Vitamin 1 Tab 1 Tab PO DAILY Albuterol Neb (Albuterol Sulfate) 2.5 Mg/3 Ml Neb 2.5 Mg NEB Q8HR NEB PRN Aspirin 81 Mg Chew 81 Mg CHEW DAILY Amitriptyline (Amitriptyline HCl) 50 Mg Tab 50 Mg PO HS Review of Systems Except as stated in HPI: all other systems reviewed are Neg Physical Exam Narrative GENERAL: This is a morbidly obese female who is in no acute distress. She is answering questions appropriately. SKIN: Warm and dry. HEAD: Atraumatic. Normocephalic. EYES: Pupils equal and round. No scleral icterus. No injection or drainage. ENT: No nasal bleeding or discharge. Mucous membranes pink and moist. NECK: Trachea midline. No JVD. CARDIOVASCULAR: Regular rate and rhythm. No murmur appreciated. RESPIRATORY: No accessory muscle use. Coarse breath sounds bilaterally throughout all lung [place]. GASTROINTESTINAL: Abdomen soft, non-tender, nondistended. Hepatic and splenic margins not palpable. MUSCULOSKELETAL: No obvious deformities. No edema. NEUROLOGICAL: Awake and alert. No obvious cranial nerve deficits. Motor grossly within normal limits. Normal speech. PSYCHIATRIC: Appropriate mood and affect; insight and judgment normal. Data Data Last Documented VS Vital Signs Date Time Temp Pulse Resp B/P Pulse Ox O2 Delivery O2 Flow Rate FiO2 08/06/16 21:48 113/58 08/06/16 21:46 98 08/06/16 21:12 Nasal Cannula 3 08/06/16 21:08 98.6 99 18 Orders Complete Blood Count With Diff (08/06/16 21:12) Comprehensive Metabolic Panel (08/06/16 21:12) Lactic Acid Sepsis Protocol (08/06/16 21:12) Influenzae A/B Antigen (08/06/16 21:12) Blood Culture (08/06/16 21:12) Chest, Single Ap (08/06/16 21:12) Ecg Monitoring (08/06/16 21:12) Iv Access Insert/Monitor (08/06/16 21:12) Oximetry (08/06/16 21:12) Oxygen Administration (08/06/16 21:12) Vancomycin Inj (Vancomycin Inj) (08/06/16 22:30) Cefepime Inj (Maxipime Inj) (08/06/16 21:30) Azithromycin Inj (Zithromax Inj) (08/06/16 21:30) Sodium Chlor 0.9% 1000 Ml Inj (Ns 1000 M (08/06/16 21:16) Sodium Chlor 0.9% 1000 Ml Inj (Ns 1000 M (08/06/16 21:16) Electrocardiogram (08/06/16 21:16) Ckmb (Isoenzyme) Profile (08/06/16 21:47) Troponin I (08/06/16 21:47) Acetaminophen (Tylenol) (08/06/16 22:00) Albuterol-Ipratropium Neb (Duoneb Neb) (08/06/16 22:30) Methylprednisolone So Succ Inj (Solumedr (08/06/16 22:30) Naproxen (Naprosyn) (08/06/16 22:45) Labs Laboratory Tests Test 08/06/16 21:35 White Blood Count 4.9 TH/MM3 Red Blood Count 4.82 MIL/MM3 Hemoglobin 13.4 GM/DL Hematocrit 40.8 % Mean Corpuscular Volume 84.8 FL Mean Corpuscular Hemoglobin 27.7 PG Mean Corpuscular Hemoglobin 32.7 % Concent Red Cell Distribution Width 15.2 % Platelet Count 133 TH/MM3 Mean Platelet Volume 10.2 FL Neutrophils (%) (Auto) 69.5 % Lymphocytes (%) (Auto) 16.9 % Monocytes (%) (Auto) 8.7 % Eosinophils (%) (Auto) 4.0 % Basophils (%) (Auto) 0.9 % Neutrophils # (Auto) 3.4 TH/MM3 Lymphocytes # (Auto) 0.8 TH/MM3 Monocytes # (Auto) 0.4 TH/MM3 Eosinophils # (Auto) 0.2 TH/MM3 Basophils # (Auto) 0.0 TH/MM3 CBC Comment DIFF FINAL Differential Comment Sodium Level 142 MEQ/L Potassium Level 4.3 MEQ/L Chloride Level 106 MEQ/L Carbon Dioxide Level 31.8 MEQ/L Anion Gap 4 MEQ/L Blood Urea Nitrogen 10 MG/DL Creatinine 0.75 MG/DL Estimat Glomerular Filtration 80 ML/MIN Rate Random Glucose 90 MG/DL Lactic Acid Level 0.7 mmol/L Calcium Level 8.8 MG/DL Alanine Aminotransferase 21 U/L (ALT/SGPT) Total Creatine Kinase 34 U/L Troponin I LESS THAN 0.02 NG/ML Albumin 2.7 GM/DL [facility] Medical Decision Making Medical Screen Exam Complete: Yes Emergency Medical Condition: Yes Medical Record Reviewed: Yes Differential Diagnosis Healthcare associated pneumonia, COPD exacerbation, influenza, sepsis Narrative Course 56-year-old female resident of [facility] and [facility] presents via EMS for evaluation of fever, cough. Examination reveals diffuse coarse breath sounds bilaterally. Per chart review the patient has been admitted several times in the past for respiratory distress secondary to respiratory illness. She has had MRSA positive sputum cultures. Plan is for basic lab work, chest x- ray, blood cultures, influenza antigen. She was given broad-spectrum antibiotics including cefepime, azithromycin and vancomycin. She was given 2 L of IV fluids. She will be placed on ECG monitoring and pulse oximetry. The patient's lab work and imaging studies are reassuring. Her chest x-ray is normal. She is not febrile here. She has no leukocytosis. No evidence of pneumonia. She feels improved after the administration of DuoNeb nebs and Solu- Medrol. Her symptoms are consistent with COPD exacerbation. The plan will be to discharge the patient home with prednisone and azithromycin. Discussed signs and symptoms that would warrant returning to the emergency room. She is stable for discharge. Diagnosis Primary Impression: COPD (chronic obstructive pulmonary disease) Qualified Code: J44.1 - Chronic obstructive pulmonary disease with acute exacerbation Additional Instructions: Medication as prescribed. Follow up close with primary care physician. Return for any acutely new or worsening symptoms. Med/Other Pt SpecificInfo: Prescription(s) given Scripts Prednisone 20 Mg Tab20 Mg PO BID 5 Days Ref 0 Prov:Denise Conte MD 08/06/16 Azithromycin 250 Mg Oca360 Mg PO DIRECTED #6 TAB Ref 0 Take 2 tabs (500 mg) on day 1 then 1 tab daily x 4 days. Prov:Denise Conte MD 08/06/16 Disposition: 01 DISCHARGE HOME Condition: Stable Guevara Amaral Aug 06, 2016 21:22
[2016-08-06] MEDS ORDERED: CEFEPIME INJ 2,000 MG in SODIUM CHLORIDE 0.9% INJ 100 ML IV ONE (21:30)
[2016-08-06] MEDS ORDERED: AZITHROMYCIN INJ 500 MG in SODIUM CHLOR 0.9% 250 ML INJ 250 ML IV ONE (21:30)
--- NOTE | 2016-08-06 21:42 | RADRPT ---
EXAM DATE/TIME: 08/06/2016 21:19 [facility] COMPARISON: CHEST SINGLE AP, June 06, 2016, 19:14. INDICATIONS : Short of breath and chest pain. MEDICAL HISTORY : Chronic obstructive pulmonary disease. SURGICAL HISTORY : Gastric bypass. ENCOUNTER: Initial ACUITY: 1 day PAIN SCORE: 3/10 LOCATION: Bilateral chest FINDINGS: Portable AP view of the chest demonstrates a normal-sized cardiac silhouette. No effusion, consolidat ion, or pneumothorax is visualized. The bones and soft tissues demonstrate no acute abnormality.CONCL USION: No acute abnormality is identified. Hussein Ortiz MD on August 06, 2016 at 21:39 Board Certified Radiologist. This report was verified electronically.
[2016-08-06 21:46] VITALS: O2SAT 98
[2016-08-06 21:48] VITALS: BP 113/58
[2016-08-06] MEDS ORDERED: ACETAMINOPHEN 325 MG TAB PO ONE (22:00)
[2016-08-06 22:22] LABS: AUTOMATED NEUTROPHIL # 3.4 TH/MM3 (1.8-7.7); BASOPHIL % 0.9 % (0.0-2.0); EOSINOPHIL # 0.2 TH/MM3 (0-0.4); HEMATOCRIT 40.8 % (35.0-46.0); HEMO FLAGS DIFF FINAL; LYMPH % 16.9 % (9.0-44.0); LYMPHOCYTE # 0.8 TH/MM3 (1.0-4.8); MEAN CELL VOLUME 84.8 FL (80.0-100.0); MEAN CORPUSCULAR HEMOGLOBIN 27.7 PG (27.0-34.0); MEAN CORPUSCULAR HGB CONC 32.7 % (32.0-36.0); MONO % 8.7 % (0.0-8.0); NEUT % 69.5 % (16.0-70.0); PLATELET COUNT 133 TH/MM3 (150-450); RED BLOOD COUNT 4.82 MIL/MM3 (4.00-5.30); RED CELL DISTRIBUTION WIDTH 15.2 % (11.6-17.2); WHITE BLOOD COUNT 4.9 TH/MM3 (4.0-11.0)
[2016-08-06] MEDS ORDERED: methylPREDNISolone SOD SUCC 125 MG/2 ML VIAL IV PUSH ONE (22:30)
[2016-08-06] MEDS ORDERED: VANCOMYCIN INJ 2,000 MG in SODIUM CHLORID 0.9% 500 ML INJ 500 ML IV ONE (22:30)
[2016-08-06] MEDS: RESP: ALBUTEROL 2.5 MG/IPRATROPIUM 0.5 MG NEB (SCH) INH (22:35)
[2016-08-06] MEDS ORDERED: NAPROXEN 500 MG TAB PO ONE (22:45)
[2016-08-06 22:53] LABS: ALT (GPT) 21 U/L (10-53); ANION GAP 4 MEQ/L (5-15); BICARBONATE 31.8 MEQ/L (21.0-32.0); BLOOD UREA NITROGEN 10 MG/DL (7-18); CHLORIDE 106 MEQ/L (98-107); GLOMERULAR FILTRATION RATE 80 ML/MIN (>89); POTASSIUM 4.3 MEQ/L (3.5-5.1); SODIUM (NA) 142 MEQ/L (136-145)
[2016-08-06 22:54] LABS: CREATINE KINASE 34 U/L (26-192)
[2016-08-06] MEDS ORDERED: AZIT250T3 PO (22:57)
[2016-08-06] MEDS ORDERED: PRED20 PO (22:57)
[2016-08-06 23:01] LABS: ALKALINE PHOSPHATASE 142 U/L (45-117); AST (GOT) 22 U/L (15-37); TOTAL BILIRUBIN ADULT 0.2 MG/DL (0.2-1.0)
[2016-08-07 01:49] VITALS: BP 115/78; PULSE 87; RESP 18; O2SAT 95
[2016-08-07] MEDS ORDERED: NAPROXEN 500 MG TAB PO ONE (05:00)
[2016-08-07 07:06] VITALS: BP 135/77; PULSE 81; RESP 18; O2SAT 92
--- NOTE | 2016-08-07 13:57 | EKG ---
Date Performed: 08/06/2016 Time Performed: 21:45:42 PTAGE: 56 years EKG: Sinus rhythm POSSIBLE INFERIOR MYOCARDIAL INFARCTION BORDERLINE ECG Compared to prior tracing no significant david kristen PREVIOUS TRACING : 02/22/2016 20.47 DOCTOR: Rica Dunne Interpretating Date/Time 08/07/2016 13:50:34
== END 2016-08-07 08:09 | disposition home or self-care (01) ==
LOC: NEPE 21:00
DX: J44.9 Chronic obstructive pulmonary disease, unspecified (principal); E66.01 Morbid (severe) obesity due to excess calories; M79.1 Myalgia; R09.81 Nasal congestion; D64.9 Anemia, unspecified; F41.9 Anxiety disorder, unspecified; K21.9 Gastro-esophageal reflux disease without esophagitis; R94.31 Abnormal electrocardiogram [ECG] [EKG]; Z99.81 Dependence on supplemental oxygen
CPT/HCPCS: 71010; 80053; 82550; 83605; 84484; 85025; 87040; 87804; 93005; 94640; 94664; 96365; 96366; 96367; 96375; 99285; J0456; J0692; J2930; J3370; J7030; J7040; J7050

== ENCOUNTER 2017-03-15 07:22 | Inpatient (IN) | payer MEDICAID, OTHER ==
[2017-03-15] VITALS (20 sets, daily range): BP systolic 108–156; BP diastolic 51–100; PULSE 86–109; RESP 16–26; TEMP 97.5–98.9; O2SAT 88–99
[~2017-03-15] VITALS: Ht 162.6 cm; Wt 152.0 kg
[~2017-03-15 07:22] MED LIST changes: +AMIT25TA9 PO; +ASPI-516 CHEW; -ASPI81CH CHEW; +AZIT250T3 PO; -COLA100C3 PO; -GABA250S TUBE; -LEVA750T PO; +LORA-392 PO; +NEUR300C PO; -OXYC-392 PO; +OXYC-395 PO; -PRED10PA2 PO; +QUET1TAB9 PO; -SENN8.6T15 PO; -ZYVO600T PO
[2017-03-15] MEDS ORDERED: methylPREDNISolone SOD SUCC 125 MG/2 ML VIAL IV PUSH ONE (07:45)
[2017-03-15] MEDS ORDERED: SODIUM CHLORIDE 0.9% FLUSH 10 ML FLUSH IVF PRN ×2 (07:45→08:30)
--- NOTE | 2017-03-15 07:47 | PD ---
HPI Chief Complaint: respiratory distress Time Seen by Provider: 07:33 Travel History International Travel<30 days: No Contact w/Intl Traveler<30days: No History of Present Illness HPI 57-year-old female presents by ambulance from the [facility] with three-day history of cough, congestion and difficulty breathing. Her oxygen saturation on her couple liters that she's on in the [facility] was in the low 80s. They placed her on a nonrebreather. She is not given any medications prior to arrival. Patient states she has felt like this for the past 3 days but is drowsy and having difficulty answering questions. The ambulance team states her end-tidal CO2 was 52. History is limited on initial presentation. PFSH Past Medical History Anemia: Yes Asthma: No Anxiety: Yes Depression: Yes Cancer: No Cardiovascular Problems: No COPD: Yes Cerebrovascular Accident: No Diabetes: No Diminished Hearing: No Diverticulitis: Yes Endocrine: No Gastrointestinal Disorders: Yes GERD: Yes Genitourinary: No Hiatal Hernia: No Herniated Disk: Yes Implanted Vascular Access Dvce: Yes Kidney Stones: No Musculoskeletal: Yes Neurologic: Yes Psychiatric: Yes Reproductive: No Respiratory: Yes Migraines: No Renal Failure: No Seizures: No Sleep Apnea: Yes Thyroid Disease: No Ulcer: No Past Surgical History Abdominal Surgery: Yes (COLOSTOMY; GASTRIC BYPASS) Cardiac Surgery: No Ear Surgery: No Endocrine Surgery: No Eye Surgery: No Genitourinary Surgery: No Gynecologic Surgery: No Oral Surgery: No Thoracic Surgery: No Other Surgery: Yes Social History Alcohol Use: No Tobacco Use: No Substance Use: No Allergies-Medications (Allergen,Severity, Reaction): Coded Allergies: penicillin G (Unverified Allergy, Unknown, 03/15/17) *MDRO Multi-Drug Resistant Organism (Verified Adverse Reaction, Unknown, MRSA, 03/15/17) MRSA screen POSITIVE - 01/13/16, 02/22/15 MRSA (sputum-01/13/16, 02/25/16 & 03/03/16) ESBL k.pneumoniae (urine)-02/22/16 Reported Meds & Prescriptions Reported Meds & Active Scripts Active Symbicort Inh (Budesonide/Formoterol Fumarate) 80-4.5 Mcg/Act Aero 2 Puff INH Q12HR Duoneb (Ipratropium-Albuterol Neb) 0.5-2.5 Mg/3 Ml Neb 1 Ampule INH Q6HR PRN 7 Days Reported Aplisol (Tuberculin Ppd) 5 Tub. Unit/0.1 Ml Inj Quetiapine (Quetiapine Fumarate) 200 Mg Tab 200 Mg PO HS Quetiapine (Quetiapine Fumarate) 100 Mg Tab 100 Mg PO DAILY Neurontin (Gabapentin) 300 Mg Cap 1,200 Mg PO TID Ativan (Lorazepam) 0.5 Mg Tab 0.5 Mg PO Q12HR PRN Amitriptyline (Amitriptyline HCl) 25 Mg Tab 25 Mg PO AC BREAKFAST Albuterol Neb (Albuterol Sulfate) 2.5 Mg/3 Ml Neb 2.5 Mg NEB Q8HR NEB PRN Aspirin 81 Mg Chew 81 Mg CHEW DAILY Amitriptyline (Amitriptyline HCl) 50 Mg Tab 75 Mg PO HS Review of Systems ROS Limitations: Clinical Condition Physical Exam Exam Limitations: Clinical Condition Narrative GENERAL: Well-nourished, well-developed patient. SKIN: Warm and dry. HEAD: Normocephalic and atraumatic. EYES: No injection or drainage. ENT: No nasal drainage noted. NECK: Supple, trachea midline. CARDIOVASCULAR: Regular rate and rhythm RESPIRATORY: Decreased aeration bilaterally with frequent cough. No accessory muscle use. GASTROINTESTINAL: Abdomen nondistended. NEUROLOGICAL: Drowsy but opens eyes to voice, moves all extremities and sensory grossly within normal limits. Slow to respond but clear speech. Data Data Last Documented VS Vital Signs Date Time Temp Pulse Resp B/P (MAP) Pulse Ox O2 Delivery O2 Flow Rate FiO2 03/15/17 11:25 103 22 109/51 (70) 94 BiPAP 35 03/15/17 08:33 98.6 03/15/17 08:01 4.00 Orders Orders Complete Blood Count With Diff (03/15/17 07:33) Comprehensive Metabolic Panel (03/15/17 07:33) B-Type Natriuretic Peptide (03/15/17 07:33) Act Partial Throm Time (Ptt) (03/15/17 07:33) Prothrombin Time / Inr (Pt) (03/15/17 07:33) Magnesium (Mg) (03/15/17 07:33) Ckmb (Isoenzyme) Profile (03/15/17 07:33) Troponin I (03/15/17 07:33) Urinalysis - C+S If Indicated (03/15/17 07:33) Influenzae A/B Antigen (03/15/17 07:33) Blood Culture (03/15/17 07:33) Iv Access Insert/Monitor (03/15/17 07:33) Electrocardiogram (03/15/17 07:33) Ecg Monitoring (03/15/17 07:33) Oximetry (03/15/17 07:33) Oxygen Administration (03/15/17 07:33) Chest, Single Ap (03/15/17 07:33) Urinary Catheter Insert/Apply (03/15/17 07:33) Sodium Chloride 0.9% Flush (Ns Flush) (03/15/17 07:45) Methylprednisolone So Succ Inj (Solumedr (03/15/17 07:45) Albuterol-Ipratropium Neb (Duoneb Neb) (03/15/17 07:45) Resp Bipap / Cpap Non Invas Vt (03/15/17 07:33) Lactic Acid (03/15/17 07:33) Sodium Chloride 0.9% Flush (Ns Flush) (03/15/17 08:30) Aztreonam Inj (Azactam Inj) (03/15/17 08:30) Levofloxacin 750 Mg Premix Inj (Levaquin (03/15/17 08:30) Vascular Access Team Consult/P PRN (03/15/17 08:22) Vascular Poc Ultrasound (03/15/17 ) Urine Culture (03/15/17 07:48) Arterial Blood Gas (Abg) (03/15/17 ) Resp Bipap / Cpap Non Invas Vt (03/15/17 10:02) Arterial Blood Gas (Abg) (03/15/17 10:35) Admit Order (Ed Use Only) (03/15/17 11:30) Labs Laboratory Tests Test 03/15/17 07:40 03/15/17 07:43 03/15/17 07:48 03/15/17 09:48 White Blood Count 6.9 TH/MM3 Red Blood Count 4.69 MIL/MM3 Hemoglobin 12.9 GM/DL Hematocrit 41.3 % Mean Corpuscular Volume 88.1 FL Mean Corpuscular Hemoglobin 27.6 PG Mean Corpuscular Hemoglobin Concent 31.3 % Red Cell Distribution Width 16.6 % Platelet Count 173 TH/MM3 Mean Platelet Volume 9.6 FL Neutrophils (%) (Auto) 88.6 % Lymphocytes (%) (Auto) 3.8 % Monocytes (%) (Auto) 6.8 % Eosinophils (%) (Auto) 0.4 % Basophils (%) (Auto) 0.4 % Neutrophils # (Auto) 6.1 TH/MM3 Lymphocytes # (Auto) 0.3 TH/MM3 Monocytes # (Auto) 0.5 TH/MM3 Eosinophils # (Auto) 0.0 TH/MM3 Basophils # (Auto) 0.0 TH/MM3 CBC Comment DIFF FINAL Differential Comment Prothrombin Time 10.1 SEC Prothromb Time International Ratio 1.0 RATIO Activated Partial Thromboplast Time 24.0 SEC Blood Urea Nitrogen 11 MG/DL Creatinine 0.64 MG/DL Random Glucose 104 MG/DL Total Protein 6.7 GM/DL Albumin 2.7 GM/DL Calcium Level 8.5 MG/DL Magnesium Level 2.3 MG/DL Alkaline Phosphatase 128 U/L Aspartate Amino Transf (AST/SGOT) 23 U/L Alanine Aminotransferase (ALT/SGPT) 15 U/L Total Bilirubin 0.5 MG/DL Sodium Level 139 MEQ/L Potassium Level 4.4 MEQ/L Chloride Level 99 MEQ/L Carbon Dioxide Level 36.4 MEQ/L Anion Gap 4 MEQ/L Estimat Glomerular Filtration Rate 95 ML/MIN Total Creatine Kinase 51 U/L Troponin I LESS THAN 0.02 NG/ML B-Type Natriuretic Peptide 27 PG/ML Lactic Acid Level 0.8 mmol/L Urine Color YELLOW Urine Turbidity HAZY Urine pH 6.0 Urine Specific Conifer 1.013 Urine Protein TRACE mg/dL Urine Glucose (UA) NEG mg/dL Urine Ketones NEG mg/dL Urine Occult Blood NEG Urine Nitrite POS Urine Bilirubin NEG Urine Urobilinogen LESS THAN 2.0 MG/DL Urine Leukocyte Esterase SMALL Urine RBC 2 /hpf Urine WBC 7 /hpf Urine Amorphous Sediment OCC Urine Bacteria MANY /hpf Urine Mucus FEW /lpf Microscopic Urinalysis Comment CULTURE INDICATED Blood Gas Puncture Site LT RADIAL Blood Gas Patient Temperature 98.6 Blood Gas HCO3 37 mmol/L Blood Gas Base Excess 10.0 mmol/L Blood Gas Oxygen Saturation 87 % Arterial Blood pH 7.30 Arterial Blood Partial Pressure CO2 77 mmHg Arterial Blood Partial Pressure O2 53 mmHG Arterial Blood Oxygen Content 15.5 Vol % Arterial Blood Carboxyhemoglobin 1.6 % Arterial Blood Methemoglobin 1.0 % Blood Gas Hemoglobin 12.7 G/DL Oxygen Delivery Device BiPAP Blood Gas Ventilator Setting IPAP15/EPAP5 Blood Gas Inspired Oxygen 30 % Test 03/15/17 10:58 Blood Gas Puncture Site LT RADIAL Blood Gas Patient Temperature 98.6 Blood Gas HCO3 37 mmol/L Blood Gas Base Excess 10.8 mmol/L Blood Gas Oxygen Saturation 91 % Arterial Blood pH 7.32 Arterial Blood Partial Pressure CO2 75 mmHg Arterial Blood Partial Pressure O2 61 mmHG Arterial Blood Oxygen Content 16.3 Vol % Arterial Blood Carboxyhemoglobin 1.6 % Arterial Blood Methemoglobin 0.8 % Blood Gas Hemoglobin 12.8 G/DL Oxygen Delivery Device BIPAP Blood Gas Ventilator Setting IPAP20/EPAP8 Blood Gas Inspired Oxygen 35 % MDM Medical Decision Making Medical Screen Exam Complete: Yes Emergency Medical Condition: Yes Medical Record Reviewed: Yes (past history confirm from records) Interpretation(s) CBC & BMP Diagram 03/15/17 07:40 Total Protein 6.7, Albumin 2.7 L, Calcium Level 8.5, Magnesium Level 2.3, Alkaline Phosphatase 128 H, Aspartate Amino Transf (AST/SGOT) 23, Alanine Aminotransferase (ALT/SGPT) 15, Total Bilirubin 0.5 Last 24 hours Impressions Chest X-Ray 03/15/17 0733 Signed Impressions: Service Date/Time: Wednesday, March 15, 2017 07:57 - CONCLUSION: Limited exam secondary to motion and poor penetration, however, there appears to be a new area of airspace consolidation involving the lingula versus left lower lobe. Recommend upright PA lateral view when clinically able. Ivania Ya MD ABG shows respiratory acidosis Differential Diagnosis Influenza, COPD, CO2 narcosis, pneumonia, sepsis, renal failure Narrative Course Will check blood work, chest x-ray, EKG and placed on BiPAP with DuoNeb's and Solu-Medrol and reevaluate Patient's x-ray shows signs of infection. Given allergies placed on aztreonam and Levaquin. Patient has been on BiPAP for about an hour. We will check gas Patient clinically says she feels better and is talking and more alert. ABGs still shows respiratory acidosis. We will increase settings to 20 over 8 and check gas in 30 minutes as patient is preferring to not be intubated. She does keep intermittently pulling her mask off and informed If not improving patient will need to be intubated and have discussion of this again next abg stable, wants to continue bipap, will monitor closely in the icu Critical Care Narrative Aggregate critical care time was 60 minutes. Time to perform other separately billable procedures was not included in the critical care time. My time did not include minutes spent treating any other patients simultaneously or on activities that did not directly contribute to the patient's treatment. The services I provided to this patient were to treat and/or prevent clinically significant deterioration that could result in: Respiratory failure, I provided critical care services requiring my management, as noted below: Chart data review, documentation time, medication orders and management, vital sign assessments/reviewing monitor data, ordering and reviewing lab tests, ordering and interpreting/reviewing x-rays and diagnostic studies, care of the patient and discussion of the patient with the admitting physicians. Physician Communication Physician Communication dr mello states to place admit under dr josh moreno given report and agrees to admit Diagnosis Primary Impression: Acute respiratory failure with hypoxia and hypercarbia Additional Impressions: Pneumonia Qualified Codes: J18.9 - Pneumonia, unspecified organism COPD (chronic obstructive pulmonary disease) Qualified Codes: J44.1 - Chronic obstructive pulmonary disease with (acute) exacerbation UTI (urinary tract infection) Qualified Codes: N39.0 - Urinary tract infection, site not specified Admitting Information Admitting Physician Requests: it Lynn Alejandro MD Mar 15, 2017 07:47
[2017-03-15] MEDS ORDERED: APLI5INJ2 (08:09)
--- NOTE | 2017-03-15 08:10 | RADRPT ---
EXAM DATE/TIME: 03/15/2017 07:57 [facility] COMPARISON: CHEST SINGLE AP, August 06, 2016, 21:19. INDICATIONS : Short of breath. MEDICAL HISTORY : Chronic obstructive pulmonary disease. SURGICAL HISTORY : Gastric bypass. ENCOUNTER: Initial ACUITY: 1 day PAIN SCORE: 0/10 LOCATION: Bilateral chest FINDINGS: AP semiupright portable view of the chest is limited by poor penetration and motion. There appears to be a new area of airspace consolidation involving the lingula. The heart size appears mildly promine nt likely secondary to portable supine technique. Osseous structures are unremarkable. CONCLUSION: Limited exam secondary to motion and poor penetration, however, there appears to be a new area of air space consolidation involving the lingula versus left lower lobe. Recommend upright PA lateral view w hen clinically able. Ivania Ya MD on March 15, 2017 at 8:06 Board Certified Radiologist. This report was verified electronically.
[2017-03-15] MEDS: RESP: ALBUTEROL 2.5 MG/IPRATROPIUM 0.5 MG NEB (SCH) INH ×5 (08:13→23:34)
[2017-03-15 08:16] LABS: AUTOMATED NEUTROPHIL # 6.1 TH/MM3 (1.8-7.7); BASOPHIL % 0.4 % (0.0-2.0); EOSINOPHIL % 0.4 % (0.0-4.0); HEMATOCRIT 41.3 % (35.0-46.0); HEMOGLOBIN 12.9 GM/DL (11.6-15.3); LYMPH % 3.8 % (9.0-44.0); LYMPHOCYTE # 0.3 TH/MM3 (1.0-4.8); MEAN CELL VOLUME 88.1 FL (80.0-100.0); MEAN CORPUSCULAR HEMOGLOBIN 27.6 PG (27.0-34.0); MEAN CORPUSCULAR HGB CONC 31.3 % (32.0-36.0); MEAN PLATELET VOLUME 9.6 FL (7.0-11.0); MONO % 6.8 % (0.0-8.0); MONOCYTE # 0.5 TH/MM3 (0-0.9); NEUT % 88.6 % (16.0-70.0); PLATELET COUNT 173 TH/MM3 (150-450); RED BLOOD COUNT 4.69 MIL/MM3 (4.00-5.30); RED CELL DISTRIBUTION WIDTH 16.6 % (11.6-17.2); WHITE BLOOD COUNT 6.9 TH/MM3 (4.0-11.0)
[2017-03-15 08:21] LABS: AMORPHOUS SEDIMENT, URINE OCC; BACTERIA, URINE MANY /hpf; BILIRUBIN, URINE NEG (NEG); BLOOD, URINE NEG (NEG); GLUCOSE,URINE NEG (NEG); KETONE, URINE NEG (NEG); MUCUS URINE FEW /lpf (OCC); NITRITE,URINE POS (NEG); URINE COLOR YELLOW (YELLW/STRAW); URINE LEUKOCYTE ESTERASE SMALL (NEG)
[2017-03-15 08:30] LABS: PROTHROMBIN TIME - PATIENT 10.1 SEC (9.8-11.6)
[2017-03-15] MEDS ORDERED: AZTREONAM INJ 2,000 MG in SODIUM CHLORIDE 0.9% INJ 100 ML IV ONE (08:30)
[2017-03-15] MEDS ORDERED: LEVOFLOXACIN 750 MG PREMIX INJ 150 ML IV ONE (08:30)
[2017-03-15 08:38] LABS: ALBUMIN 2.7 GM/DL (3.4-5.0); ALT (GPT) 15 U/L (10-53); AST (GOT) 23 U/L (15-37); BICARBONATE 36.4 MEQ/L (21.0-32.0); BLOOD UREA NITROGEN 11 MG/DL (7-18); CALCIUM 8.5 MG/DL (8.5-10.1); CHLORIDE 99 MEQ/L (98-107); CREATININE 0.64 MG/DL (0.50-1.00); GLOMERULAR FILTRATION RATE 95 ML/MIN (>89); GLUCOSE,RANDOM 104 MG/DL (74-106); MAGNESIUM 2.3 MG/DL (1.5-2.5); SODIUM (NA) 139 MEQ/L (136-145)
[2017-03-15 08:46] LABS: ALKALINE PHOSPHATASE 128 U/L (45-117); TOTAL BILIRUBIN ADULT 0.5 MG/DL (0.2-1.0); TOTAL PROTEIN 6.7 GM/DL (6.4-8.2); TROPONIN I LESS THAN 0.02 NG/ML (0.02-0.05)
[2017-03-15] MEDS ORDERED: RESP: ALBUTEROL 2.5 MG/IPRATROPIUM 0.5 MG NEB (PRN) INH (11:45)
[2017-03-15] MEDS ORDERED: POTASSIUM PHOSPHATE INJ 30 MMOL in SODIUM CHLOR 0.9% 250 ML INJ 250 ML IV PRN (11:45)
[2017-03-15] MEDS ORDERED: POTASSIUM CHLOR 20 MEQ PREMIX 100 ML IV PRN ×2 (11:45)
[2017-03-15] MEDS ORDERED: MAGNESIUM SULFATE INJ 2 GM in SODIUM CHLORIDE 0.9% INJ 96 ML IV PRN (11:45)
[2017-03-15] MEDS ORDERED: MAGNESIUM OXIDE 400 MG TAB PO PRN (11:45)
[2017-03-15] MEDS ORDERED: SODIUM PHOSPHATE INJ 30 MMOL in SODIUM CHLOR 0.9% 250 ML INJ 240 ML IV PRN (11:45)
[2017-03-15] MEDS ORDERED: POTASSIUM CHLOR 40 MEQ PREMIX 100 ML IV PRN ×2 (11:45)
[2017-03-15] MEDS ORDERED: MAGNESIUM SULFATE INJ 4 GM in SODIUM CHLORIDE 0.9% INJ 92 ML IV PRN (11:45)
[2017-03-15] MEDS ORDERED: POTASSIUM CHLORIDE 25 MEQ EFFERVESCENT TAB PO PRN (11:45)
[2017-03-15] MEDS ORDERED: POTASSIUM PHOSPHATE MONOBASIC 500 MG TAB PO/TUBE PRN (11:45)
[2017-03-15] MEDS ORDERED: POTASSIUM PHOSPHATE MONOBASIC 500 MG TAB PO PRN (11:45)
--- NOTE | 2017-03-15 11:57 | HHI.HP ---
HPI Service Critical Care Medicine Primary Care Physician No Primary Care Physician Admission Diagnosis respiratory failure, copd exacerbation, uti Diagnosis: Chief Complaint: shortness of breath Travel History International Travel<30 Days: No Contact w/Intl Traveler <30 Da: No Traveled to Known Affected Are: No History of Present Illness This is a 57yF with history of o2 dependent COPD on 3L o2 at home by [place] who presents with a few day history of fever, chills, muscle aches and worsening shortness of breath. She has + multiple recent contacts with the flu. in the ER , she was found to be in distress and hypercarbic and started on BiPAP. Review of Systems ROS Limitations: Clinical Condition ROS in respiratory distress on BiPAP Past Family Social History Allergies: Coded Allergies: penicillin G (Unverified Allergy, Unknown, 03/15/17) *MDRO Multi-Drug Resistant Organism (Verified Adverse Reaction, Unknown, MRSA, 03/15/17) MRSA screen POSITIVE - 01/13/16, 02/22/15 MRSA (sputum-01/13/16, 02/25/16 & 03/03/16) ESBL k.pneumoniae (urine)-02/22/16 Past Medical History Anemia Anxiety Depression COPD, o2 dependent on 3L o2 Diverticulitis GERD Herniated Disk Sleep apnea Past Surgical History Colostomy Gastric bypass Reported Medications Symbicort Inh (Budesonide/Formoterol Fumarate) 80-4.5 Mcg/Act Aero 2 Puff INH Q12HR Duoneb (Ipratropium-Albuterol Neb) 0.5-2.5 Mg/3 Ml Neb 1 Ampule INH Q6HR PRN 7 Days Aplisol (Tuberculin Ppd) 5 Tub. Unit/0.1 Ml Inj Quetiapine (Quetiapine Fumarate) 200 Mg Tab 200 Mg PO HS Quetiapine (Quetiapine Fumarate) 100 Mg Tab 100 Mg PO DAILY Neurontin (Gabapentin) 300 Mg Cap 1,200 Mg PO TID Ativan (Lorazepam) 0.5 Mg Tab 0.5 Mg PO Q12HR PRN Amitriptyline (Amitriptyline HCl) 25 Mg Tab 25 Mg PO AC BREAKFAST Albuterol Neb (Albuterol Sulfate) 2.5 Mg/3 Ml Neb 2.5 Mg NEB Q8HR NEB PRN Aspirin 81 Mg Chew 81 Mg CHEW DAILY Amitriptyline (Amitriptyline HCl) 50 Mg Tab 75 Mg PO HS Active Ordered Medications See MAR Family History reviewed and found to be noncontributory to her acute illness. Social History denies tob, etoh, doa. Physical Exam Vital Signs Vital Signs Date Time Temp Pulse Resp B/P (MAP) Pulse Ox O2 Delivery O2 Flow Rate FiO2 03/15/17 11:25 103 22 109/51 (70) 94 BiPAP 35 03/15/17 10:40 108 22 142/71 (94) 93 BiPAP 35 03/15/17 10:05 95 35 03/15/17 09:54 BiPAP 40 03/15/17 09:50 103 20 108/54 (72) 93 BiPAP 30 03/15/17 08:40 95 BiPAP 30 03/15/17 08:33 98.6 109 20 114/58 (76) 96 BiPAP 40 03/15/17 08:01 96 BiPAP 40 03/15/17 08:01 22 90 Nasal Cannula 4.00 03/15/17 07:57 109 24 138/100 (113) 88 03/15/17 07:30 95 30 Physical Exam GENERAL: Morbidly obese female, lying in bed, moderate distress. On BiPAP. HEENT: Normocephalic. Atraumatic. Pupils equal, round, reactive, conjugate. Mucous membranes are moist NECK: Trachea is midline. There is no JVD. CHEST: Very decreased air entry bilaterally. Extra wheezing. BiPAP. FiO2 60% . SPO2 93% CARDIOVASCULAR: Tachycardic rate, regular rhythm. ABDOMEN: Soft, nontender, nondistended. No guarding. MUSCULOSKELETAL: Pulses 2+. No peripheral edema. NEUROLOGICAL: RASS -1. Follows commands. Laboratory Laboratory Tests Test 03/15/17 07:40 03/15/17 07:43 03/15/17 07:48 03/15/17 09:48 White Blood Count 6.9 Red Blood Count 4.69 Hemoglobin 12.9 Hematocrit 41.3 Mean Corpuscular Volume 88.1 Mean Corpuscular Hemoglobin 27.6 Mean Corpuscular Hemoglobin Concent 31.3 Red Cell Distribution Width 16.6 Platelet Count 173 Mean Platelet Volume 9.6 Neutrophils (%) (Auto) 88.6 Lymphocytes (%) (Auto) 3.8 Monocytes (%) (Auto) 6.8 Eosinophils (%) (Auto) 0.4 Basophils (%) (Auto) 0.4 Neutrophils # (Auto) 6.1 Lymphocytes # (Auto) 0.3 Monocytes # (Auto) 0.5 Eosinophils # (Auto) 0.0 Basophils # (Auto) 0.0 CBC Comment DIFF FINAL Differential Comment Prothrombin Time 10.1 Prothromb Time International Ratio 1.0 Activated Partial Thromboplast Time 24.0 Blood Urea Nitrogen 11 Creatinine 0.64 Random Glucose 104 Total Protein 6.7 Albumin 2.7 Calcium Level 8.5 Magnesium Level 2.3 Alkaline Phosphatase 128 Aspartate Amino Transf (AST/SGOT) 23 Alanine Aminotransferase (ALT/SGPT) 15 Total Bilirubin 0.5 Sodium Level 139 Potassium Level 4.4 Chloride Level 99 Carbon Dioxide Level 36.4 Anion Gap 4 Estimat Glomerular Filtration Rate 95 Total Creatine Kinase 51 Troponin I LESS THAN 0.02 B-Type Natriuretic Peptide 27 Lactic Acid Level 0.8 Urine Color YELLOW Urine Turbidity HAZY Urine pH 6.0 Urine Specific [place] 1.013 Urine Protein TRACE Urine Glucose (UA) NEG Urine Ketones NEG Urine Occult Blood NEG Urine Nitrite POS Urine Bilirubin NEG Urine Urobilinogen LESS THAN 2.0 Urine Leukocyte Esterase SMALL Urine RBC 2 Urine WBC 7 Urine Amorphous Sediment OCC Urine Bacteria MANY Urine Mucus FEW Microscopic Urinalysis Comment CULTURE INDICATED Blood Gas Puncture Site LT RADIAL Blood Gas Patient Temperature 98.6 Blood Gas HCO3 37 Blood Gas Base Excess 10.0 Blood Gas Oxygen Saturation 87 Arterial Blood pH 7.30 Arterial Blood Partial Pressure CO2 77 Arterial Blood Partial Pressure O2 53 Arterial Blood Oxygen Content 15.5 Arterial Blood Carboxyhemoglobin 1.6 Arterial Blood Methemoglobin 1.0 Blood Gas Hemoglobin 12.7 Oxygen Delivery Device BiPAP Blood Gas Ventilator Setting IPAP15/EPAP5 Blood Gas Inspired Oxygen 30 Test 03/15/17 10:58 Blood Gas Puncture Site LT RADIAL Blood Gas Patient Temperature 98.6 Blood Gas HCO3 37 Blood Gas Base Excess 10.8 Blood Gas Oxygen Saturation 91 Arterial Blood pH 7.32 Arterial Blood Partial Pressure CO2 75 Arterial Blood Partial Pressure O2 61 Arterial Blood Oxygen Content 16.3 Arterial Blood Carboxyhemoglobin 1.6 Arterial Blood Methemoglobin 0.8 Blood Gas Hemoglobin 12.8 Oxygen Delivery Device BIPAP Blood Gas Ventilator Setting IPAP20/EPAP8 Blood Gas Inspired Oxygen 35 Date/Time Source Procedure Growth Status 03/15/17 07:40 Blood Peripheral Aerobic Blood Culture Pending Received 03/15/17 07:40 Blood Peripheral Anaerobic Blood Culture Pending Received 03/15/17 07:50 Nasal Aspirate Influenza Types A,B Antigen (JOHNNY) - Final NEGATIVE FOR FLU A AND B ANTIGEN.... Complete 03/15/17 07:48 Urine Clean Catch Urine Culture Pending Received Result Diagram: 03/15/17 0740 03/15/17 0740 Imaging Last Impressions Chest X-Ray 03/15/17 0733 Signed Impressions: Service Date/Time: Wednesday, March 15, 2017 07:57 - CONCLUSION: Limited exam secondary to motion and poor penetration, however, there appears to be a new area of airspace consolidation involving the lingula versus left lower lobe. Recommend upright PA lateral view when clinically able. Ivania Ya MD Septic Shock Reassessment Septic shock perfusion: reassessment completed Caprini VTE Risk Assessment Caprini VTE Risk Assessment: Mod/High Risk (score >= 2) Caprini Risk Assessment Model Point Value = 1 Point Value = 2 Point Value = 3 Point Value = 5 Age 41-60 Minor surgery BMI > 25 kg/m2 Swollen legs Varicose veins or History of unexplained or recurrent spontaneous Oral contraceptives or hormone replacement Sepsis (< 1 month) Serious lung disease, including pneumonia (< 1 month) Abnormal pulmonary function Acute myocardial infarction Congestive heart failure (< 1 month) History of inflammatory bowel disease Medical patient at bed rest Age 61-74 Arthroscopic surgery Major open surgery (> 45 min) Laparoscopic surgery (> 45 min) Malignancy Confined to bed (> 72 hours) Immobilizing plaster cast Central venous access Age >= 75 History of VTE Family history of VTE Factor V Leiden Prothrombin [id number] Lupus anticoagulant Anticardiolipin antibodies Elevated serum homocysteine Heparin-induced thrombocytopenia Other congenital or acquired thrombophilia Stroke (< 1 month) Elective arthroplasty Hip, pelvis, or leg fracture Acute spinal cord injury (< 1 month) Prophylaxis Regimen Total Risk Factor Score Risk Level Prophylaxis Regimen 0-1 Low Early ambulation 2 Moderate Order ONE of the following: *Sequential Compression Device (SCD) *Heparin 5000 units SQ BID 3-4 Higher Order ONE of the following medications: *Heparin 5000 units SQ TID *Enoxaparin/Lovenox 40 mg SQ daily (WT < 150 kg, CrCl > 30 mL/min) *Enoxaparin/Lovenox 30 mg SQ daily (WT < 150 kg, CrCl > 10-29 mL/min) *Enoxaparin/Lovenox 30 mg SQ BID (WT < 150 kg, CrCl > 30 mL/min) AND/OR *Sequential Compression Device (SCD) 5 or more Highest Order ONE of the following medications: *Heparin 5000 units SQ TID (Preferred with Epidurals) *Enoxaparin/Lovenox 40 mg SQ daily (WT < 150 kg, CrCl > 30 mL/min) *Enoxaparin/Lovenox 30 mg SQ daily (WT < 150 kg, CrCl > 10-29 mL/min) *Enoxaparin/Lovenox 30 mg SQ BID (WT < 150 kg, CrCl > 30 mL/min) AND *Sequential Compression Device (SCD) Assessment and Plan Assessment and Plan Assessment: 57yF with COPD exacerbation, possible influenza vs. community acquired pneumonia, complicated by UTI. She has acute hypercarbic and hypoxic respiratory failure despite NIPPV. admit to ICU. critically ill requiring significant non-invasive support and may require intubation, as she has needed in the past. remains critically ill. Active Problems: COPD Exacerbation Possible Community Acquired Pneumonia Acute hypoxic and hypercarbic respiratory failure Urinary Tract Infection Possible influenza Plan: admit to icu bipap wean fio2 for goal spo2 > 90% vent bundle steroids nebs aztreonam and levaquin blood cultures and urine culture influenza swab negative, but clinical history suggestive, will send influenza PCR and start empiric tamiflu. SCDs/Lovenox. serial abg. may require intubation. aggressive pulmonary toilet. Admit to ICU. critically ill. Critical care time: 33 minutes, exclusive of separately billable procedures. Jose Miguel Gross MD Mar 15, 2017 11:57
[2017-03-15] MEDS ORDERED: ONDANSETRON HCL 4 MG/2 ML VIAL IV PUSH PRN (12:00)
[2017-03-15] MEDS ORDERED: MAGNESIUM HYDROXIDE SUSP 30 ML CUP PO PRN (12:00)
[2017-03-15] MEDS ORDERED: MISCELLANEOUS NURSING INFORMATION XX SCH (12:00)
[2017-03-15] MEDS ORDERED: CHLORHEXIDINE GLUCONATE 2 % 1 PACK (2 CLOTHS) TOP PRN (12:00)
[2017-03-15] MEDS: MAGNESIUM SULFATE 1 GM PREMIX 100 ML IV SCH ×2 (14:03→15:01)
[2017-03-15] MEDS: ENOXAPARIN SODIUM 40 MG/0.4 ML SYRINGE SQ SCH (14:04)
[2017-03-15] MEDS ORDERED: ACETAMINOPHEN 1000 MG/100 ML 100 ML IV PRN (15:15)
[2017-03-15] MEDS: OSELTAMIVIR PHOSPHATE 75 MG CAP PO SCH (16:02)
[2017-03-15] MEDS: DOCUSATE SODIUM 50 MG/SENNA 8.6 MG TAB PO SCH (20:18)
[2017-03-15] MEDS: AZTREONAM INJ 2,000 MG in SODIUM CHLORIDE 0.9% INJ 100 ML IV SCH (20:18)
[2017-03-15] MEDS: methylPREDNISolone SOD SUCC 125 MG/2 ML VIAL IV PUSH SCH (20:18)
[2017-03-15] MEDS: oxyCODONE/ACETAMINOPHEN 5 MG/325 MG TAB PO PRN (21:35)
[2017-03-16] VITALS (16 sets, daily range): BP systolic 146–167; BP diastolic 65–95; PULSE 63–104; RESP 17–28; TEMP 97.6–98.6; O2SAT 91–99
[2017-03-16] MEDS: AZTREONAM INJ 2,000 MG in SODIUM CHLORIDE 0.9% INJ 100 ML IV SCH ×3 (03:25→19:47)
[2017-03-16] MEDS: CHLORHEXIDINE GLUCONATE 2 % 1 PACK (2 CLOTHS) TOP SCH (03:26)
[2017-03-16] MEDS: oxyCODONE/ACETAMINOPHEN 5 MG/325 MG TAB PO PRN ×4 (03:26→21:48)
[2017-03-16] MEDS: RESP: ALBUTEROL 2.5 MG/IPRATROPIUM 0.5 MG NEB (SCH) INH ×6 (04:00→23:44)
[2017-03-16 04:56] LABS: HEMOGLOBIN 12.8 GM/DL (11.6-15.3); MEAN CELL VOLUME 86.3 FL (80.0-100.0); MEAN CORPUSCULAR HEMOGLOBIN 27.7 PG (27.0-34.0); MEAN CORPUSCULAR HGB CONC 32.1 % (32.0-36.0); MEAN PLATELET VOLUME 9.4 FL (7.0-11.0); PLATELET COUNT 147 TH/MM3 (150-450); RED BLOOD COUNT 4.64 MIL/MM3 (4.00-5.30); RED CELL DISTRIBUTION WIDTH 15.6 % (11.6-17.2); WHITE BLOOD COUNT 3.9 TH/MM3 (4.0-11.0)
[2017-03-16 05:15] LABS: BICARBONATE 32.6 MEQ/L (21.0-32.0); CALCIUM 8.6 MG/DL (8.5-10.1); CREATININE 0.45 MG/DL (0.50-1.00)
[2017-03-16] MEDS: methylPREDNISolone SOD SUCC 125 MG/2 ML VIAL IV PUSH SCH ×2 (08:48→19:47)
[2017-03-16] MEDS: LEVOFLOXACIN 750 MG PREMIX INJ 150 ML IV SCH (08:48)
[2017-03-16] MEDS: OSELTAMIVIR PHOSPHATE 75 MG CAP PO SCH (08:48)
[2017-03-16] MEDS: DOCUSATE SODIUM 50 MG/SENNA 8.6 MG TAB PO SCH ×2 (08:48→19:47)
--- NOTE | 2017-03-16 11:11 | HHI.CCPN ---
Subjective Remarks/Hospital Course Hospital Course: This is a 57yF with history of o2 dependent COPD on 3L o2 at home by [place] who presents with a few day history of fever, chills, muscle aches and worsening shortness of breath. She has + multiple recent contacts with the flu. in the ER , she was found to be in distress and hypercarbic and started on BiPAP. Subjective: 03/16: clinically doing better. abg normalized. on nc o2 this AM. denies complaints. states she is hungry. improved aeration with less wheezing on exam. states she hangs around people that smoke in her facility and she thinks this is making her worse. ROS negative. Objective Vital Signs Date Time Temp Pulse Resp B/P (MAP) Pulse Ox O2 Delivery O2 Flow Rate FiO2 03/16/17 10:00 63 03/16/17 08:00 97.6 23 146/95 (112) 91 03/16/17 04:30 Nasal Cannula 3.00 03/16/17 04:01 35 Intake and Output 03/16/17 03/16/17 03/17/17 08:00 16:00 00:00 Intake Total 340 ml Output Total 800 ml Balance -460 ml Result Diagram: 03/16/17 0445 03/16/17 0445 Other Results Microbiology Date/Time Source Procedure Growth Status 03/15/17 07:50 Nasal Aspirate Influenza Types A,B Antigen (JOHNNY) - Final NEGATIVE FOR FLU A AND B ANTIGEN.... Complete Laboratory Tests Test 03/15/17 14:08 03/16/17 06:10 Blood Gas Puncture Site RT RADIAL RT RADIAL Blood Gas Patient Temperature 98.6 98.6 Blood Gas HCO3 35 mmol/L (22-26) 31 mmol/L (22-26) Blood Gas Base Excess 8.6 mmol/L (-2-2) 6.4 mmol/L (-2-2) Blood Gas Oxygen Saturation 90 % (90-100) 96 % (90-100) Arterial Blood pH 7.33 (7.380-7.420) 7.41 (7.380-7.420) Arterial Blood Partial Pressure CO2 68 mmHg (38-42) 49 mmHg (38-42) Arterial Blood Partial Pressure O2 63 mmHg (61-120) 83 mmHG (61-120) Arterial Blood Oxygen Content 16.6 Vol % (12.0-20.0) 17.4 Vol % (12.0-20.0) Arterial Blood Carboxyhemoglobin 1.3 % (0-4) 0.3 % (0-4) Arterial Blood Methemoglobin 1.5 % (0-2) 0.2 % (0-2) Blood Gas Hemoglobin 13.1 G/DL (12.0-16.0) 12.9 G/DL (12.0-16.0) Oxygen Delivery Device BIPAP NASAL CANNULA Blood Gas Ventilator Setting IPAP20/EPAP8 Blood Gas Inspired Oxygen 35 % Blood Gas Liter Flow 4 L/M Imaging Last Impressions Chest X-Ray 03/15/17 0733 Signed Impressions: Service Date/Time: Wednesday, March 15, 2017 07:57 - CONCLUSION: Limited exam secondary to motion and poor penetration, however, there appears to be a new area of airspace consolidation involving the lingula versus left lower lobe. Recommend upright PA lateral view when clinically able. Ivania Ya MD Objective Remarks GENERAL: Morbidly obese female, lying in bed, no acute distress. HEENT: Normocephalic. Atraumatic. Pupils equal, round, reactive, conjugate. Mucous membranes are moist NECK: Trachea is midline. There is no JVD. CHEST: improved aeration. expiratory wheezing, although improved from yesterday. 3L o2 by [place]. unlabored. CARDIOVASCULAR: normal rate, regular rhythm. ABDOMEN: Soft, nontender, nondistended. No guarding. MUSCULOSKELETAL: Pulses 2+. No peripheral edema. NEUROLOGICAL: RASS 0. Follows commands. A/P Assessment and Plan Assessment: 57yF with COPD exacerbation, influenza vs. community acquired pneumonia, complicated by UTI. Resolving hypercarbia. stable for transfer out of ICU. continue empiric abx and tamiflu. f/u cultures. continue nebs and steroids. advance diet. Active Problems: COPD Exacerbation Possible Community Acquired Pneumonia Acute hypoxic and hypercarbic respiratory failure - improving. Urinary Tract Infection Possible influenza Plan: wean o2 by [place] for goal spo2 > 90% steroids nebs aztreonam and levaquin f/u blood cultures and urine culture influenza swab negative, but clinical history suggestive, will send influenza PCR and start empiric tamiflu. SCDs/Lovenox. aggressive pulmonary toilet. advance diet. PT consult. transfer out of ICU. consult hospitalist. Jose Miguel Gross MD Mar 16, 2017 11:11
[2017-03-16] MEDS: ENOXAPARIN SODIUM 40 MG/0.4 ML SYRINGE SQ SCH (12:08)
--- NOTE | 2017-03-16 19:18 | EKG ---
Date Performed: 03/15/2017 Time Performed: 08:14:48 PTAGE: 57 years EKG: SINUS TACHYCARDIA RIGHT BUNDLE BRANCH BLOCK Since previous tracing, no significant change n oted ABNORMAL ECG PREVIOUS TRACING : 08/06/2016 21.45 DOCTOR: Ming Mazariegos Interpretating Date/Time 03/16/2017 19:16:23
[2017-03-16] MEDS: ACETAMINOPHEN 325 MG TAB PO PRN (19:48)
[2017-03-17] VITALS (14 sets, daily range): BP systolic 139–177; BP diastolic 63–82; PULSE 79–96; RESP 14–23; TEMP 97.7–98.6; O2SAT 96–100
[2017-03-17] MEDS: oxyCODONE/ACETAMINOPHEN 5 MG/325 MG TAB PO PRN ×3 (02:37→14:06)
[2017-03-17] MEDS: ACETAMINOPHEN 325 MG TAB PO PRN (02:37)
[2017-03-17] MEDS: AZTREONAM INJ 2,000 MG in SODIUM CHLORIDE 0.9% INJ 100 ML IV SCH ×3 (02:37→20:05)
[2017-03-17] MEDS: CHLORHEXIDINE GLUCONATE 2 % 1 PACK (2 CLOTHS) TOP SCH (04:00)
[2017-03-17] MEDS: RESP: ALBUTEROL 2.5 MG/IPRATROPIUM 0.5 MG NEB (SCH) INH ×6 (04:40→22:58)
[2017-03-17 04:41] LABS: HEMATOCRIT 43.6 % (35.0-46.0); MEAN CELL VOLUME 86.8 FL (80.0-100.0); MEAN CORPUSCULAR HEMOGLOBIN 27.8 PG (27.0-34.0); MEAN CORPUSCULAR HGB CONC 32.1 % (32.0-36.0); MEAN PLATELET VOLUME 9.6 FL (7.0-11.0); PLATELET COUNT 155 TH/MM3 (150-450); RED BLOOD COUNT 5.02 MIL/MM3 (4.00-5.30); RED CELL DISTRIBUTION WIDTH 15.8 % (11.6-17.2); WHITE BLOOD COUNT 3.8 TH/MM3 (4.0-11.0)
[2017-03-17 04:59] LABS: BICARBONATE 30.8 MEQ/L (21.0-32.0); CALCIUM 8.8 MG/DL (8.5-10.1); CREATININE 0.67 MG/DL (0.50-1.00)
[2017-03-17] MEDS: methylPREDNISolone SOD SUCC 125 MG/2 ML VIAL IV PUSH SCH (08:29)
[2017-03-17] MEDS: DOCUSATE SODIUM 50 MG/SENNA 8.6 MG TAB PO SCH ×2 (08:29→20:04)
[2017-03-17] MEDS: LEVOFLOXACIN 750 MG PREMIX INJ 150 ML IV SCH (08:29)
[2017-03-17] MEDS: OSELTAMIVIR PHOSPHATE 75 MG CAP PO SCH (08:29)
[2017-03-17] MEDS: ENOXAPARIN SODIUM 40 MG/0.4 ML SYRINGE SQ SCH (11:13)
--- NOTE | 2017-03-17 13:50 | HHI.PR ---
Subjective Remarks Follow-up for shortness of breath and UTI Shortness of breath better, still coughing but better. Complaining of bilateral foot pain. She says that she is on gabapentin 600 mg 3 times a day, she is on Seroquel at night and Xanax at night with unknown dose. Blood pressure is also elevated, systolic 170s to 180s, denies any headache, nausea, vomiting or blurring of vision. Denies any chest pain. She thinks it may be related to her pain. She denies any history of hypertension as outpatient. Objective Vitals Vital Signs Date Time Temp Pulse Resp B/P (MAP) Pulse Ox O2 Delivery O2 Flow Rate FiO2 03/17/17 12:00 93 03/17/17 12:00 98.6 93 21 152/82 (105) 96 03/17/17 12:00 98.6 93 03/17/17 10:00 89 03/17/17 09:30 33 03/17/17 08:10 98 Nasal Cannula 3.00 03/17/17 08:00 82 03/17/17 08:00 97.7 82 22 177/81 (113) 98 03/17/17 06:00 90 03/17/17 04:00 98.0 85 23 152/68 (96) 98 03/17/17 04:00 85 03/17/17 02:00 88 03/17/17 00:00 98.1 96 19 169/73 (105) 100 03/17/17 00:00 96 03/16/17 22:00 100 03/16/17 20:10 98 Nasal Cannula 3.00 03/16/17 20:00 88 03/16/17 20:00 98.0 88 22 167/74 (105) 98 03/16/17 18:00 104 03/16/17 16:00 103 03/16/17 16:00 98.6 103 28 153/65 (94) 99 03/16/17 14:00 101 I/O 03/16/17 03/16/17 03/16/17 03/17/17 03/17/17 03/17/17 07:00 15:00 23:00 07:00 15:00 23:00 Intake Total 440 ml 250 ml 880 ml 580 ml 150 ml Output Total 800 ml 925 ml 650 ml Balance -360 ml 250 ml -45 ml -70 ml 150 ml Intake Oral 240 ml 780 ml 480 ml IV Total 200 ml 250 ml 100 ml 100 ml 150 ml Output Urine Total 600 ml 925 ml 650 ml Stool Total 200 ml # Bowel Movements 2 Result Diagram: 03/17/1735003/17/17350 Objective Remarks GENERAL: Morbidly obese female, lying in bed, no acute distress. HEENT: Pupils equal, round, reactive, conjugate. Mucous membranes are moist, on nasal cannula. NECK: Trachea is midline. There is no JVD. CHEST: improved aeration. No wheezing, coarse breath sounds, unlabored. CARDIOVASCULAR: normal rate, regular rhythm. ABDOMEN: Soft, nontender, nondistended. No guarding. Colostomy in place with same or formed stool. MUSCULOSKELETAL: Pulses 2+. No peripheral edema. Alert, awake, oriented 3, moves extremities. A/P Assessment and Plan This is a 49-year-old female, obese with history of COPD, presented with shortness of breath. COPD exacerbation, influenza vs. community acquired pneumonia - continue bronchodilators, empiric Tamiflu, despite negative rapid flu, follow-up influenza PCR, continue nebs and steroids. Continue empiric aztreonam and Levaquin. Continue to wean oxygen. If remains stable, may probably stop Levaquin, and finish aztreonam versus switch to ceftriaxone/Macrobid. Escherichia coli intermediate to cefazolin. Patient is penicillin allergic. Restart Symbicort, switch her prednisone to prednisone, taper. UTI-urine culture grew Escherichia coli, sensitive to aztreonam, resistant to ciprofloxacin. Continue straining for now. Antibiotics as above Hypertensive urgency-asymptomatic, could be from volume overload, will give one dose of Lasix, Vasotec and hydralazine as needed. Also could be secondary to pain, patient denies history of hypertension, restart gabapentin. Increase Percocet. Bilateral feet neuropathy-restart gabapentin 600 mg 3 times a day. Per patient , this is her dose. Increase Percocet. Restart Ativan and Seroquel per home dose. Per patient, she is only on Seroquel at night. Lovenox for DVT prophylaxis. Discharged back to SNF when ready. Discharge Planning Discharged back to SNF when medically cleared. Mick Monson MD Mar 17, 2017 13:49
[2017-03-17] MEDS ORDERED: ENALAPRILAT 1.25 MG/ML VIAL IV PUSH PRN (15:00)
[2017-03-17] MEDS ORDERED: FUROSEMIDE 20 MG/2 ML VIAL IV PUSH ONE (16:00)
[2017-03-17] MEDS ORDERED: hydrALAZINE HCL 20 MG/ML VIAL IV PUSH PRN (16:00)
[2017-03-17] MEDS: LORazepam 0.5 MG TAB PO PRN (16:31)
[2017-03-17] MEDS: oxyCODONE/ACETAMINOPHEN 10 MG/325 MG TAB PO PRN ×2 (17:45→21:37)
[2017-03-17] MEDS: QUEtiapine FUMARATE 200 MG TAB PO SCH (20:04)
[2017-03-17] MEDS: predniSONE 20 MG TAB PO SCH (20:04)
[2017-03-17] MEDS: BUDESONIDE-FORMOTEROL 80/4.5 MCG INHALER INH SCH (21:36)
[2017-03-18] VITALS (8 sets, daily range): BP systolic 128–156; BP diastolic 68–75; PULSE 76–99; RESP 16–20; TEMP 96–98.1; O2SAT 93–98
[2017-03-18] MEDS: oxyCODONE/ACETAMINOPHEN 10 MG/325 MG TAB PO PRN ×6 (01:45→22:13)
[2017-03-18] MEDS: RESP: ALBUTEROL 2.5 MG/IPRATROPIUM 0.5 MG NEB (SCH) INH ×6 (03:36→23:48)
[2017-03-18] MEDS: CHLORHEXIDINE GLUCONATE 2 % 1 PACK (2 CLOTHS) TOP SCH (04:00)
[2017-03-18] MEDS: AZTREONAM INJ 2,000 MG in SODIUM CHLORIDE 0.9% INJ 100 ML IV SCH ×3 (05:39→21:02)
[2017-03-18] MEDS: BUDESONIDE-FORMOTEROL 80/4.5 MCG INHALER INH SCH ×2 (09:00→21:00)
[2017-03-18] MEDS: OSELTAMIVIR PHOSPHATE 75 MG CAP PO SCH (09:00)
[2017-03-18 10:01] LABS: HEMATOCRIT 43.8 % (35.0-46.0); MEAN CELL VOLUME 86.9 FL (80.0-100.0); MEAN CORPUSCULAR HEMOGLOBIN 27.8 PG (27.0-34.0); MEAN PLATELET VOLUME 9.3 FL (7.0-11.0); PLATELET COUNT 149 TH/MM3 (150-450); RED BLOOD COUNT 5.04 MIL/MM3 (4.00-5.30); RED CELL DISTRIBUTION WIDTH 16.4 % (11.6-17.2)
[2017-03-18] MEDS: predniSONE 20 MG TAB PO SCH ×2 (10:21→21:02)
[2017-03-18] MEDS: LEVOFLOXACIN 750 MG PREMIX INJ 150 ML IV SCH (10:22)
[2017-03-18] MEDS: ASPIRIN 81 MG CHEW TAB CHEW SCH (10:22)
[2017-03-18] MEDS: DOCUSATE SODIUM 50 MG/SENNA 8.6 MG TAB PO SCH ×2 (10:22→21:00)
[2017-03-18 10:27] LABS: BICARBONATE 30.3 MEQ/L (21.0-32.0); CALCIUM 8.8 MG/DL (8.5-10.1)
[2017-03-18 10:33] LABS: CREATININE 0.55 MG/DL (0.50-1.00)
[2017-03-18] MEDS: ENOXAPARIN SODIUM 40 MG/0.4 ML SYRINGE SQ SCH (12:55)
[2017-03-18] MEDS: LORazepam 0.5 MG TAB PO PRN (13:02)
--- NOTE | 2017-03-18 17:19 | EKG ---
Date Performed: 03/18/2017 Time Performed: 17:00:27 PTAGE: 57 years EKG: Sinus rhythm PROBABLE INFERIOR MYOCARDIAL INFARCTION , PROBABLY OLD ABNORMAL ECG Compared to prior electrocardiog isabell, Right bundle branch block no longer present. PREVIOUS TRACING : 03/15/2017 08.14 DOCTOR: Jm Seals Interpretating Date/Time 03/18/2017 17:17:23
[2017-03-18] MEDS ORDERED: ALUMINUM/MAGNESIUM/SIMETH 30 ML CUP PO PRN (17:45)
[2017-03-18] MEDS ORDERED: ALUMINUM/MAGNESIUM/SIMETH 30 ML CUP PO ONE (17:45)
--- NOTE | 2017-03-18 17:47 | HHI.PR ---
Subjective Remarks Patient c/o chest pain 45 minutes ago, which has resolved. Denies nausea or vomiting. Patient states feels better. Objective Vitals Vital Signs Date Time Temp Pulse Resp B/P (MAP) Pulse Ox O2 Delivery O2 Flow Rate FiO2 03/18/17 16:00 98.1 80 19 156/70 (98) 94 03/18/17 15:57 93 Nasal Cannula 3.00 03/18/17 12:00 97.9 86 19 136/68 (90) 93 03/18/17 08:29 98 Nasal Cannula 3.00 03/18/17 08:00 96.0 76 16 141/75 (97) 93 03/18/17 03:39 95 Nasal Cannula 3.00 03/18/17 00:00 96.5 99 20 128/72 (90) 95 03/17/17 22:58 96 Nasal Cannula 3.00 03/17/17 20:00 89 03/17/17 20:00 98.3 89 14 139/63 (88) 96 03/17/17 19:43 96 Nasal Cannula 3.00 03/17/17 18:45 18 03/17/17 18:00 93 I/O 03/17/17 03/17/17 03/17/17 03/18/17 03/18/17 03/18/17 07:00 15:00 23:00 07:00 15:00 23:00 Intake Total 580 ml 250 ml 1320 ml 460 ml Output Total 650 ml 2450 ml 0 ml Balance -70 ml 250 ml -1130 ml 460 ml Intake Oral 480 ml 1070 ml 360 ml IV Total 100 ml 250 ml 250 ml 100 ml Output Urine Total 650 ml 2400 ml Stool Total 50 ml 0 ml Bladder Scan Volume Amount 162 ml # Voids 0 Result Diagram: 03/18/17 0932 03/18/17 0932 Imaging Last Impressions Chest X-Ray 03/15/17 0733 Signed Impressions: Service Date/Time: Wednesday, March 15, 2017 07:57 - CONCLUSION: Limited exam secondary to motion and poor penetration, however, there appears to be a new area of airspace consolidation involving the lingula versus left lower lobe. Recommend upright PA lateral view when clinically able. Ivania Ya MD Objective Remarks AAOx3 obese, tenderness over epigastric region Lungs show scattered diffuse expiratory wheezing. no edema in lower extremities Medications and IVs Current Medications Medications (Trade) Dose Ordered Sig/Elliot Route Start Time Stop Time Status Last Admin (NS Flush) 2 ml UNSCH PRN IVF 03/15/17 07:45 (NS Flush) 2 ml UNSCH PRN IVF 03/15/17 08:30 (Duoneb Neb) 1 ampule Q2HR NEB PRN INH 03/15/17 11:45 (Duoneb Neb) 1 ampule Q4HR NEB INH 03/15/17 12:00 03/18/17 15:55 Aztreonam 2000 mg/ Sodium Chloride 100 ml @ 200 mls/hr Q8H IV 03/15/17 20:00 03/18/17 12:55 Levofloxacin/ Dextrose 150 ml @ 100 mls/hr Q24H IV 03/16/17 09:00 03/18/17 10:22 (Tamiflu) 75 mg DAILY PO 03/15/17 11:45 03/18/17 09:00 (Tylenol) 650 mg Q6H PRN PO 03/15/17 12:00 03/17/17 02:37 (Zofran Inj) 4 mg Q6H PRN IV PUSH 03/15/17 12:00 (Lovenox Inj) 40 mg Q24H SQ 03/15/17 13:00 03/18/17 12:55 Miscellaneous Information 1 Q361D XX 03/15/17 12:00 (Chlorhexidine 2% Cloth) 3 pack Taper DAILY@04 TOP 03/16/17 04:00 03/12/18 03:59 03/18/17 04:00 (Chlorhexidine 2% Cloth) 3 pack UNSCH PRN TOP 03/15/17 12:00 (Bertha-Colace) 1 tab BID PO 03/15/17 21:00 03/18/17 10:22 (Milk Of Magnesia Liq) 30 ml Q12H PRN PO 03/15/17 12:00 Acetaminophen 100 ml @ 400 mls/hr Q6H PRN IV 03/15/17 15:15 03/15/17 16:02 (Percocet 5-325 Mg) 1 tab Q6H PRN PO 03/15/17 20:45 03/17/17 14:06 (Percocet 10-325 Mg) 1 tab Q4H PRN PO 03/17/17 16:00 03/18/17 14:19 (Deltasone) 40 mg BID PO 03/17/17 21:00 03/18/17 10:21 (Vasotec Inj) 1.25 mg Q6H PRN IV PUSH 03/17/17 15:00 03/17/17 16:31 (Apresoline Inj) 10 mg Q4H PRN IV PUSH 03/17/17 16:00 (Aspirin Chew) 81 mg DAILY CHEW 03/18/17 09:00 03/18/17 10:22 (Symbicort 80-4.5 Mcg Inh) 2 puff Q12HR INH 03/17/17 21:00 03/18/17 09:00 (Ativan) 0.5 mg Q12HR PRN PO 03/17/17 16:00 03/18/17 13:02 (SEROquel) 200 mg HS PO 03/17/17 21:00 03/17/17 20:04 A/P Problem List: (1) Acute exacerbation of chronic obstructive pulmonary disease (COPD) ICD Code: J44.1 - Chronic obstructive pulmonary disease with (acute) exacerbation Status: Acute (2) Hypoxia ICD Code: R09.02 - Hypoxemia Status: Acute (3) Sepsis ICD Code: A41.9 - Sepsis, unspecified organism Status: Acute (4) PNA (pneumonia) ICD Code: J18.9 - Pneumonia, unspecified organism Status: Acute (5) UTI (urinary tract infection) ICD Code: N39.0 - Urinary tract infection, site not specified Status: Acute (6) Pneumonia ICD Code: J18.9 - Pneumonia, unspecified organism Status: Acute (7) Acute respiratory failure with hypoxia and hypercarbia ICD Code: J96.01 - Acute respiratory failure with hypoxia; J96.02 - Acute respiratory failure with hypercapnia Status: Resolved Assessment and Plan This is a 49-year-old female, obese with history of COPD, presented with shortness of breath. COPD exacerbation influenza vs. community acquired pneumonia continue bronchodilators, empiric Tamiflu, despite negative rapid flu, follow- up influenza PCR, continue nebs and steroids. Continue empiric aztreonam and Levaquin. Continue to wean oxygen. Patient is penicillin allergic. Restart Symbicort, switch her prednisone to prednisone, taper. 03/18 I will discontinue IV Levaquin and continue Aztreonam. consult ID for advise on outpatient antibiotics. UTI-urine culture grew Escherichia coli, sensitive to aztreonam, resistant to ciprofloxacin. Continue straining for now. Antibiotics as above Hypertensive urgency-asymptomatic, could be from volume overload, will give one dose of Lasix, Vasotec and hydralazine as needed. Also could be secondary to pain, patient denies history of hypertension, restart gabapentin. Increase Percocet. 03/18 BP more stable, continue Vasotec and hydralazine as needed. will start patient on Lisinopril 10 mg po daily. Bilateral feet neuropathy- Continue gabapentin 600 mg 3 times a day. Per patient, this is her dose. Continue Percocet. Continue Ativan and Seroquel per home dose. Per patient, she is only on Seroquel at night. Chest pain EKG ordered stat. EKG reviewed by me showed sinus rhythm with a ventricular rate of 88 bpm. Q waves observed on leads 1 and 2 as well as 3. Probable old inferior myocardial infarction. Will check troponin and CKMB x2. Suspect chest pain due to gastritis as there is pain in epigastric region. Will start on protonix and Maalox as needed. Lovenox for DVT prophylaxis. Problem Qualifiers (1) UTI (urinary tract infection): Qualified Codes: N39.0 - Urinary tract infection, site not specified (2) Pneumonia: Qualified Codes: J18.9 - Pneumonia, unspecified organism Emanuel Roca MD Mar 18, 2017 17:47
[2017-03-18] MEDS: PANTOPRAZOLE SOD 40 MG DELAYED RELEASE TAB PO SCH (18:10)
[2017-03-18 21:00] LABS: TROPONIN I LESS THAN 0.02 NG/ML (0.02-0.05)
[2017-03-18] MEDS: QUEtiapine FUMARATE 200 MG TAB PO SCH (21:02)
[2017-03-19] VITALS (7 sets, daily range): BP systolic 135–156; BP diastolic 60–70; PULSE 69–81; RESP 18–20; TEMP 96.8–97.4; O2SAT 93–96
[2017-03-19] MEDS: oxyCODONE/ACETAMINOPHEN 10 MG/325 MG TAB PO PRN ×4 (02:14→15:03)
[2017-03-19 02:18] LABS: HEMATOCRIT 43.8 % (35.0-46.0); HEMOGLOBIN 13.9 GM/DL (11.6-15.3); MEAN CELL VOLUME 87.1 FL (80.0-100.0); MEAN CORPUSCULAR HEMOGLOBIN 27.6 PG (27.0-34.0); MEAN CORPUSCULAR HGB CONC 31.7 % (32.0-36.0); MEAN PLATELET VOLUME 9.4 FL (7.0-11.0); PLATELET COUNT 143 TH/MM3 (150-450); RED BLOOD COUNT 5.03 MIL/MM3 (4.00-5.30); RED CELL DISTRIBUTION WIDTH 16.4 % (11.6-17.2); WHITE BLOOD COUNT 4.3 TH/MM3 (4.0-11.0)
[2017-03-19 02:41] LABS: BICARBONATE 27.4 MEQ/L (21.0-32.0); BLOOD UREA NITROGEN 18 MG/DL (7-18); CALCIUM 8.6 MG/DL (8.5-10.1); CHLORIDE 105 MEQ/L (98-107); CREATININE 0.57 MG/DL (0.50-1.00); GLOMERULAR FILTRATION RATE 109 ML/MIN (>89); GLUCOSE,RANDOM 154 MG/DL (74-106); SODIUM (NA) 138 MEQ/L (136-145)
[2017-03-19 02:44] LABS: TROPONIN I LESS THAN 0.02 NG/ML (0.02-0.05)
[2017-03-19] MEDS: RESP: ALBUTEROL 2.5 MG/IPRATROPIUM 0.5 MG NEB (SCH) INH ×3 (03:55→11:08)
[2017-03-19] MEDS: CHLORHEXIDINE GLUCONATE 2 % 1 PACK (2 CLOTHS) TOP SCH (04:00)
[2017-03-19] MEDS: AZTREONAM INJ 2,000 MG in SODIUM CHLORIDE 0.9% INJ 100 ML IV SCH ×2 (05:17→12:00)
[2017-03-19] MEDS: ASPIRIN 81 MG CHEW TAB CHEW SCH (08:29)
[2017-03-19] MEDS: OSELTAMIVIR PHOSPHATE 75 MG CAP PO SCH (08:29)
[2017-03-19] MEDS: predniSONE 20 MG TAB PO SCH (08:29)
[2017-03-19] MEDS: PANTOPRAZOLE SOD 40 MG DELAYED RELEASE TAB PO SCH (08:29)
[2017-03-19] MEDS: DOCUSATE SODIUM 50 MG/SENNA 8.6 MG TAB PO SCH (08:29)
[2017-03-19] MEDS: LEVOFLOXACIN 750 MG PREMIX INJ 150 ML IV SCH (08:32)
[2017-03-19] MEDS: BUDESONIDE-FORMOTEROL 80/4.5 MCG INHALER INH SCH (08:32)
[2017-03-19] MEDS: ENOXAPARIN SODIUM 40 MG/0.4 ML SYRINGE SQ SCH (13:43)
[2017-03-19] MEDS: LORazepam 0.5 MG TAB PO PRN (13:58)
[2017-03-19] MEDS ORDERED: PRED10PA2 PO (14:16)
[2017-03-19] MEDS ORDERED: LEVA750T9 PO (14:16)
--- NOTE | 2017-03-19 14:21 | HHI.DS ---
Discharge Summary Admission Date Mar 15, 2017 at 11:31 Discharge Date: Mar 19, 2017 Admitting Diagnosis respiratory failure, copd exacerbation, uti (1) Acute exacerbation of chronic obstructive pulmonary disease (COPD) ICD Code: J44.1 - Chronic obstructive pulmonary disease with (acute) exacerbation Status: Acute (2) Hypoxia ICD Code: R09.02 - Hypoxemia Status: Acute (3) Sepsis ICD Code: A41.9 - Sepsis, unspecified organism Status: Acute (4) PNA (pneumonia) ICD Code: J18.9 - Pneumonia, unspecified organism Status: Acute (5) UTI (urinary tract infection) ICD Code: N39.0 - Urinary tract infection, site not specified Status: Acute (6) Pneumonia ICD Code: J18.9 - Pneumonia, unspecified organism Status: Acute (7) Acute respiratory failure with hypoxia and hypercarbia ICD Code: J96.01 - Acute respiratory failure with hypoxia; J96.02 - Acute respiratory failure with hypercapnia Status: Resolved Procedures None Brief History - From Admission This is a 57yF with history of o2 dependent COPD on 3L o2 at home by [place] who presents with a few day history of fever, chills, muscle aches and worsening shortness of breath. She has + multiple recent contacts with the flu. in the ER , she was found to be in distress and hypercarbic and started on BiPAP. CBC/BMP: 03/19/17 0152 03/19/17 0152 Significant Findings Laboratory Tests Test 03/17/17 03:51 03/18/17 09:32 03/18/17 19:46 03/19/17 01:52 White Blood Count 3.8 TH/MM3 (4.0-11.0) Random Glucose 145 MG/DL (74-106) 133 MG/DL (74-106) 154 MG/DL (74-106) Platelet Count 149 TH/MM3 (150-450) 143 TH/MM3 (150-450) Total Creatine Kinase 25 U/L (26-192) 22 U/L (26-192) Troponin I LESS THAN 0.02 NG/ML LESS THAN 0.02 NG/ML Mean Corpuscular Hemoglobin Concent 31.7 % (32.0-36.0) Imaging Last Impressions Chest X-Ray 03/15/17 0733 Signed Impressions: Service Date/Time: Wednesday, March 15, 2017 07:57 - CONCLUSION: Limited exam secondary to motion and poor penetration, however, there appears to be a new area of airspace consolidation involving the lingula versus left lower lobe. Recommend upright PA lateral view when clinically able. Ivania Ya MD PE at Discharge AAOx3 obese, tenderness over epigastric region Lungs show scattered diffuse expiratory wheezing. no edema in lower extremities Pt update on day of discharge Patient reports she is feeling much better. Breathing status is close to baseline. Hospital Course 49-year-old female, obese with history of COPD, presented with shortness of breath. This is likely secondary to COPD exacerbation and community-acquired pneumonia. The patient reportedly has been around several people with the flu. She was admitted and empirically treated with Tamiflu. Her rapid flu screen was negative. The patient was also treated with IV antibiotics including aztreonam and Levaquin for a total of 5 days. She was treated with steroids. Clinically she improved. She is discharged on additional 5 days of Levaquin, steroid taper. The patient's urine culture grew Escherichia coli which is resistant to some antibiotics but sensitive to aztreonam. She received 5 days of last year and am. She remained asymptomatic from a urinary standpoint. The patient improved clinically and is deemed stable for discharge back to the custodial facility. She will continue her chronic home medications. Pt Condition on Discharge: Good Discharge Disposition: Discharge to SNF Discharge Time: > 30 minutes Discharge Instructions DIET: Follow Instructions for: Heart Healthy Diet Activities you can perform: Regular-No Restrictions New Medications: Levofloxacin (Levaquin) 750 Mg Tablet 750 MG PO DAILY for Infection, #5 TAB 0 Refills Prednisone (48) 10 mg tab Dose Pack (Prednisone (48) 10 mg tab Dose Pack) 10 Mg Dspk 10 MG PO DIRECTED for Inflammation, #1 DSPK 0 Refills Continued Medications: Albuterol Neb (Albuterol Neb) 2.5 Mg/3 Ml Neb 2.5 MG NEB Q8HR NEB PRN for SHORTNESS OF BREATH, NEBULE Amitriptyline (Amitriptyline) 50 Mg Tab 75 MG PO HS for Control Depression, TAB Amitriptyline (Amitriptyline) 25 Mg Tab 25 MG PO AC BREAKFAST, TAB Aspirin (Aspirin) 81 Mg Chew 81 MG CHEW DAILY, TAB Budesonide-Formoterol Inh (Symbicort Inh) 80-4.5 Mcg/Act Aero 2 PUFF INH Q12HR for Asthma Management, #1 INHALER 0 Refills Gabapentin (Neurontin) 300 Mg Cap 1200 MG PO TID, #90 CAP 0 Refills Ipratropium-Albuterol Neb (Duoneb) 0.5-2.5 Mg/3 Ml Neb 1 AMPULE INH Q6HR PRN for WHEEZING for 7 Days, ML Lorazepam (Ativan) 0.5 Mg Tab 0.5 MG PO Q12HR PRN for ANXIETY AND/OR AGITATION, TAB 0 Refills Quetiapine (Quetiapine) 100 Mg Tab 100 MG PO DAILY, #30 TAB 0 Refills Quetiapine (Quetiapine) 200 Mg Tab 200 MG PO HS, #30 TAB 0 Refills Tuberculin Ppd (Aplisol) 5 Tub. Unit/0.1 Ml Inj Cassandra Penny MD Mar 19, 2017 14:21
== END 2017-03-19 17:05 | DRG 189 ==
LOC: NEPC 07:22 → NEDA 11:31 → HIMN 12:26 → N07B 03-17 23:40
PROVIDERS: ADMIT Family Medicine; ATTEND Family Medicine
PROC: 5A09357 Assistance with Respiratory Ventilation, Less than 24 Consecutive Hours, Continuous Positive Airway Pressure (ICD-10-PCS; principal; 2017-03-15)
DX: J96.01 Acute respiratory failure with hypoxia (principal); J18.9 Pneumonia, unspecified organism; E87.2 Acidosis; J44.0 Chronic obstructive pulmonary disease with (acute) lower respiratory infection; J44.1 Chronic obstructive pulmonary disease with (acute) exacerbation; K57.92 Diverticulitis of intestine, part unspecified, without perforation or abscess without bleeding; Z68.43 Body mass index [BMI] 50.0-59.9, adult; N39.0 Urinary tract infection, site not specified; J96.02 Acute respiratory failure with hypercapnia; B96.20 Unspecified Escherichia coli [E. coli] as the cause of diseases classified elsewhere; Z99.81 Dependence on supplemental oxygen; F41.9 Anxiety disorder, unspecified; F32.9 Major depressive disorder, single episode, unspecified; K21.9 Gastro-esophageal reflux disease without esophagitis; G47.30 Sleep apnea, unspecified; E66.01 Morbid (severe) obesity due to excess calories; Z16.24 Resistance to multiple antibiotics; I16.0 Hypertensive urgency; G62.9 Polyneuropathy, unspecified; Z88.0 Allergy status to penicillin; Z93.3 Colostomy status; Z98.84 Bariatric surgery status; I25.2 Old myocardial infarction
CPT/HCPCS: 36600; 51702; 71045; 76937; 80048; 80053; 81001; 82550; 82805; 83605; 83735; 83880; 84484; 85025; 85027; 85610; 85730; 87040; 87077; 87086; 87186; 87641; 87804; 93005; 94002; 94003; 94150; 94640; 94664; 94667; 94668; 96365; 96366; 96375; J0131; J1650; J1940; J1956; J2930; J3475; J7512

== ENCOUNTER 2017-05-21 00:48 | Inpatient (IN) | payer OTHER ==
[2017-05-21] VITALS (29 sets, daily range): BP systolic 99–151; BP diastolic 52–67; PULSE 64–118; RESP 18–30; TEMP 100.4–102.5; O2SAT 96–100
[~2017-05-21] VITALS: Ht 165.1 cm; Wt 144.1 kg
[~2017-05-21 00:48] MED LIST changes: +APLI5INJ2; -AZIT250T3 PO; +LEVA750T9 PO; -MULTTAB67 PO; -OXYC-395 PO; +PRED10PA2 PO; -PRED20 PO
[2017-05-21] MEDS ORDERED: SUCCINYLCHOLINE CHLORIDE 200 MG/10 ML VIAL ONE (01:07)
[2017-05-21] MEDS ORDERED: ETOMIDATE 20 MG/10 ML VIAL IV PUSH ONE (01:15)
[2017-05-21] MEDS ORDERED: SUCCINYLCHOLINE CHLORIDE 100 MG/5 ML SYRINGE IV PUSH ONE (01:15)
--- NOTE | 2017-05-21 01:19 | PD ---
HPI Chief Complaint: Altered Mental Status Time Seen by Provider: 01:03 Travel History International Travel<30 days: No Contact w/Intl Traveler<30days: No Traveled to known affect area: No History of Present Illness HPI Patient is a 57-year-old female presents emergency department for eval of altered mental status. According to [facility] stated that the patient really had only been altered for the past 30 minutes. She is found to be febrile and transported here. She arrives with an x-ray report from this week which does show a right-sided pneumonia. Patient is a GCS of 8 and unable to provide any additional history. Nursing called family member and confirm the patient does have a history of COPD and is oxygen dependent at home. PFS Past Medical History Anemia: Yes Asthma: No (UNABLE TO OBTAIN) Anxiety: Yes Depression: Yes Cancer: No Cardiovascular Problems: No (UNABLE TO OBTAIN) COPD: Yes (UNABLE TO OBTAIN) Cerebrovascular Accident: No (UNABLE TO OBTAIN) Diabetes: Yes Patient Takes Glucophage: No Diminished Hearing: No Diverticulitis: Yes Endocrine: No Gastrointestinal Disorders: Yes GERD: Yes (UNABLE TO OBTAIN) Genitourinary: No (UNABLE TO OBTAIN) Headaches: No (UNABLE TO OBTAIN) Hiatal Hernia: No (UNABLE TO OBTAIN) Herniated Disk: Yes Implanted Vascular Access Dvce: Yes Kidney Stones: No (UNABLE TO OBTAIN) Musculoskeletal: Yes (UNABLE TO OBTAIN) Neurologic: Yes (UNABLE TO OBTAIN) Psychiatric: Yes Reproductive: No (UNABLE TO OBTAIN) Respiratory: Yes (UNABLE TO OBTAIN) Immunizations Current: Yes Migraines: No (UNABLE TO OBTAIN) Renal Failure: No (UNABLE TO OBTAIN) Seizures: No (UNABLE TO OBTAIN) Sleep Apnea: Yes Thyroid Disease: No Ulcer: No (UNABLE TO OBTAIN) Tetanus Vaccination: Unknown Influenza Vaccination: Yes Past Surgical History Abdominal Surgery: Yes (COLOSTOMY; GASTRIC BYPASS) Cardiac Surgery: No (UNABLE TO OBTAIN) Ear Surgery: No (UNABLE TO OBTAIN) Endocrine Surgery: No (UNABLE TO OBTAIN) Eye Surgery: No (UNABLE TO OBTAIN) Genitourinary Surgery: No (UNABLE TO OBTAIN) Gynecologic Surgery: No (UNABLE TO OBTAIN) Neurologic Surgery: No (UNABLE TO OBTAIN) Oral Surgery: No (UNABLE TO OBTAIN) Thoracic Surgery: No (UNABLE TO OBTAIN) Other Surgery: Yes (UNABLE TO OBTAIN) Social History Alcohol Use: No Tobacco Use: No Substance Use: No Allergies-Medications (Allergen,Severity, Reaction): Coded Allergies: penicillin G (Unverified Allergy, Unknown, 05/21/17) Reported Meds & Prescriptions Reported Meds & Active Scripts Active Levaquin (Levofloxacin) 750 Mg Tablet 750 Mg PO DAILY Prednisone (48) 10 mg tab Dose Pack (Prednisone) 10 Mg Dspk 10 Mg PO DIRECTED Symbicort Inh (Budesonide/Formoterol Fumarate) 80-4.5 Mcg/Act Aero 2 Puff INH Q12HR Duoneb (Ipratropium-Albuterol Neb) 0.5-2.5 Mg/3 Ml Neb 1 Ampule INH Q6HR PRN 7 Days Reported Buspirone (Buspirone HCl) 10 Mg Tab 10 Mg PO DAILY Lyrica (Pregabalin) 75 Mg Cap 75 Mg PO BID Quetiapine (Quetiapine Fumarate) 200 Mg Tab 200 Mg PO HS Quetiapine (Quetiapine Fumarate) 100 Mg Tab 100 Mg PO DAILY Neurontin (Gabapentin) 300 Mg Cap 1,200 Mg PO TID Ativan (Lorazepam) 0.5 Mg Tab 0.5 Mg PO Q12HR PRN Amitriptyline (Amitriptyline HCl) 25 Mg Tab 25 Mg PO AC BREAKFAST Albuterol Neb (Albuterol Sulfate) 2.5 Mg/3 Ml Neb 2.5 Mg NEB Q8HR NEB PRN Aspirin 81 Mg Chew 81 Mg CHEW DAILY Amitriptyline (Amitriptyline HCl) 50 Mg Tab 75 Mg PO HS Review of Systems ROS Limitations: Altered Mental Status Physical Exam Narrative GENERAL: Well-developed, morbidly obese, GCS of 8, fairly obtunded. SKIN: Focused skin assessment warm/dry. HEAD: Atraumatic. Normocephalic. EYES: Pupils equal and round. No scleral icterus. No injection or drainage. ENT: No nasal bleeding or discharge. Mucous membranes pink and moist. NECK: Trachea midline. No JVD. CARDIOVASCULAR: Regular rhythm with tachycardia. No murmur appreciated. RESPIRATORY: No accessory muscle use. Clear to auscultation. Breath sounds equal bilaterally. GASTROINTESTINAL: Abdomen soft, non-tender, nondistended. Hepatic and splenic margins not palpable. MUSCULOSKELETAL: No obvious deformities. No clubbing. No cyanosis. No edema. NEUROLOGICAL: Awake but stuporous, GCS of 8 [id number], she withdraws in all 4 extremities. Some nonpurposeful movement was observed in all 4 extremities per Data Data Last Documented VS Vital Signs Date Time Temp Pulse Resp B/P (MAP) Pulse Ox O2 Delivery O2 Flow Rate FiO2 05/21/17 02:20 100 60 05/21/17 01:25 109 18 129/67 (87) Ventilator 05/21/17 01:08 102.5 Orders Orders Sepsis Workup Initiated (05/21/17 ) Electrocardiogram (05/21/17 01:03) Complete Blood Count With Diff (05/21/17 01:03) Comprehensive Metabolic Panel (05/21/17 01:03) Beta Hcg (Quant/Titer) (05/21/17 01:03) Prothrombin Time / Inr (Pt) (05/21/17:03) Act Partial Throm Time (Ptt) (05/21/17 01:03) Lactic Acid Sepsis Protocol (05/21/17 01:03) Magnesium (Mg) (05/21/17 01:03) Phosphorus (Po4) (05/21/17 01:03) Lipase (05/21/17 01:03) Ckmb (Isoenzyme) Profile (05/21/17 01:03) Troponin I (05/21/17 01:03) Urinalysis - C+S If Indicated (05/21/17 01:03) Influenzae A/B Antigen (05/21/17 01:03) Blood Culture (05/21/17 01:03) Chest, Single Ap (05/21/17 01:03) Ecg Monitoring (05/21/17 01:03) Iv Access Insert/Monitor (05/21/17 01:03) Oximetry (05/21/17 01:03) Oxygen Administration (05/21/17 01:03) Etomidate Inj (Amidate Inj) (05/21/17 01:15) Succinylcholine Inj (Quelicin Inj) (05/21/17 01:15) Succinylcholine Inj (Quelicin Inj) (05/21/17 01:07) Midazolam 100 Mg/100 Ml Inj (Versed Inj) (05/21/17 01:25) Aztreonam Inj (Azactam Inj) (05/21/17 01:45) Sputum Culture And Gram Stain (05/21/17 01:34) Blood Gas Venous (Vbg) (05/21/17 01:34) Insert Ng Tube (05/21/17 01:34) Urinary Catheter Management KIYA.Q8H (05/21/17 01:34) Sodium Chlor 0.9% 1000 Ml Inj (Ns 1000 M (05/21/17 01:45) Urine Culture (05/21/17 01:40) Admit Order (Ed Use Only) (05/21/17 ) Labs Laboratory Tests Test 05/21/17 00:54 05/21/17 01:10 05/21/17 01:20 05/21/17 01:40 Blood Gas Puncture Site IV Blood Gas Patient Temperature 98.6 Venous Blood pH 7.20 Venous Blood Partial Pressure CO2 79 mmHg Venous Blood Partial Pressure O2 68 mmHg Venous Blood HCO3 30 mmol/L Venous Blood Oxygen Saturation 90 % Venous Blood Oxygen Content 15.3 Vol % Venous Blood Base Excess 2.1 mmol/L Oxygen Delivery Device NASAL CANNULA Blood Gas Liter Flow 5 L/M White Blood Count 9.8 TH/MM3 Red Blood Count 4.26 MIL/MM3 Hemoglobin 12.0 GM/DL Hematocrit 37.3 % Mean Corpuscular Volume 87.5 FL Mean Corpuscular Hemoglobin 28.1 PG Mean Corpuscular Hemoglobin Concent 32.2 % Red Cell Distribution Width 17.3 % Platelet Count 120 TH/MM3 Mean Platelet Volume 10.6 FL Neutrophils (%) (Auto) 85.4 % Lymphocytes (%) (Auto) 6.1 % Monocytes (%) (Auto) 7.8 % Eosinophils (%) (Auto) 0.4 % Basophils (%) (Auto) 0.3 % Neutrophils # (Auto) 8.4 TH/MM3 Lymphocytes # (Auto) 0.6 TH/MM3 Monocytes # (Auto) 0.8 TH/MM3 Eosinophils # (Auto) 0.0 TH/MM3 Basophils # (Auto) 0.0 TH/MM3 CBC Comment DIFF FINAL Differential Comment Prothrombin Time 10.4 SEC Prothromb Time International Ratio 1.0 RATIO Activated Partial Thromboplast Time 26.1 SEC Blood Urea Nitrogen 18 MG/DL Creatinine 0.98 MG/DL Random Glucose 126 MG/DL Total Protein 6.4 GM/DL Albumin 2.2 GM/DL Calcium Level 8.5 MG/DL Phosphorus Level 2.5 MG/DL Magnesium Level 2.2 MG/DL Alkaline Phosphatase 117 U/L Aspartate Amino Transf (AST/SGOT) 22 U/L Alanine Aminotransferase (ALT/SGPT) 13 U/L Total Bilirubin 0.6 MG/DL Sodium Level 144 MEQ/L Potassium Level 4.5 MEQ/L Chloride Level 109 MEQ/L Carbon Dioxide Level 28.2 MEQ/L Anion Gap 7 MEQ/L Estimat Glomerular Filtration Rate 58 ML/MIN Total Creatine Kinase 31 U/L Troponin I LESS THAN 0.02 NG/ML Lipase 37 U/L Human Chorionic Gonadotropin, Quant LESS THAN 1 MIU/ML Lactic Acid Level 1.2 mmol/L Urine Color YELLOW Urine Turbidity CLOUDY Urine pH 6.0 Urine Specific [place] 1.019 Urine Protein 100 mg/dL Urine Glucose (UA) NEG mg/dL Urine Ketones NEG mg/dL Urine Occult Blood MOD Urine Nitrite NEG Urine Bilirubin NEG Urine Urobilinogen 4.0 MG/DL Urine Leukocyte Esterase LARGE Urine RBC 29 /hpf Urine WBC /hpf Urine WBC Clumps MOD Urine Amorphous Sediment RARE Urine Bacteria MANY /hpf Microscopic Urinalysis Comment CATH-CULTURE IND MDM Medical Decision Making Medical Screen Exam Complete: Yes Emergency Medical Condition: Yes Differential Diagnosis Sepsis, pneumonia, UTI, hypercapnia, altered mental status, CVA seems unlikely. Narrative Course Patient was room to the emergency department, significantly altered mental status, found to be very hypercapnic with acute respiratory acidosis. Given this and her altered mental status is chosen to intubate her for airway protection. Attempted discussed this with her but she is unable to verbalize consent are distant. Although anticipating a difficult airway the patient was intubated fairly easy glide scope, IV access was obtained she was given a liter of normal saline, she is tachycardic and febrile, source appears to be UTI, chest x-ray was fairly clear. Started on vancomycin and Azactam given penicillin allergy. We did attempt to contact a family member prior to intubation, she apparently is a full code. Remainder of her history is still somewhat a mystery. She was discussed with Dr. Chavez for admission and he is agreeable. Critical Care Narrative Aggregate critical care time was 35 minutes. Time to perform other separately billable procedures was not included in the critical care time. My time did not include minutes spent treating any other patients simultaneously or on activities that did not directly contribute to the patient's treatment. The services I provided to this patient were to treat and/or prevent clinically significant deterioration that could result in: , disability, organ failure I provided critical care services requiring my management, as noted below: Chart data review, documentation time, medication orders and management, vital sign assessments/reviewing monitor data, ordering and reviewing lab tests, ordering and interpreting/reviewing x-rays and diagnostic studies, care of the patient and discussion of the patient with the admitting physicians. Procedures Procedure Narrative INTUBATION: The patient was put in optimal position for the procedure. Rapid sequence intubation was initiated by me using 20 milligrams of etomidate IV and 100 milligrams of succinylcholine IV. The patient was intubated with a 8-0 cuffed endotracheal tube. Tube placement was confirmed by visualization of the tube and balloon passing through the cords, capnometry and subsequent chest x-ray. Breath sounds were equal and well aerated bilaterally postintubation. No breath sounds over stomach. Patient tolerated procedure well. Diagnosis Primary Impression: Acute respiratory failure with hypoxia and hypercarbia Additional Impressions: Severe sepsis UTI (urinary tract infection) Admitting Information Admitting Physician Requests: Admit Condition: Critical Shankar Redman MD May 21, 2017 01:19
[2017-05-21] MEDS ORDERED: MIDAZOLAM 100 MG/100 ML INJ 100 ML ONE (01:25)
[2017-05-21] MEDS ORDERED: LYRI75CA PO (01:33)
[2017-05-21] MEDS ORDERED: BUSP10TA PO (01:33)
[2017-05-21 01:43] LABS: AUTOMATED NEUTROPHIL # 8.4 TH/MM3 (1.8-7.7); BASOPHIL % 0.3 % (0.0-2.0); EOSINOPHIL % 0.4 % (0.0-4.0); HEMATOCRIT 37.3 % (35.0-46.0); LYMPH % 6.1 % (9.0-44.0); LYMPHOCYTE # 0.6 TH/MM3 (1.0-4.8); MEAN CELL VOLUME 87.5 FL (80.0-100.0); MEAN CORPUSCULAR HEMOGLOBIN 28.1 PG (27.0-34.0); MEAN CORPUSCULAR HGB CONC 32.2 % (32.0-36.0); MEAN PLATELET VOLUME 10.6 FL (7.0-11.0); MONO % 7.8 % (0.0-8.0); MONOCYTE # 0.8 TH/MM3 (0-0.9); NEUT % 85.4 % (16.0-70.0); PLATELET COUNT 120 TH/MM3 (150-450); RED BLOOD COUNT 4.26 MIL/MM3 (4.00-5.30); RED CELL DISTRIBUTION WIDTH 17.3 % (11.6-17.2); WHITE BLOOD COUNT 9.8 TH/MM3 (4.0-11.0)
[2017-05-21] MEDS ORDERED: VANCOMYCIN INJ 1,000 MG in SODIUM CHLOR 0.9% 250 ML INJ 250 ML IV ONE (01:45)
[2017-05-21] MEDS ORDERED: AZTREONAM INJ 2,000 MG in SODIUM CHLORIDE 0.9% INJ 100 ML IV ONE (01:45)
[2017-05-21] MEDS ORDERED: SODIUM CHLOR 0.9% 1000 ML INJ 1,000 ML IV ONE (01:45)
--- NOTE | 2017-05-21 01:45 | RADRPT ---
EXAM DATE/TIME: 05/21/2017 01:26 [facility] COMPARISON: CHEST SINGLE AP, March 15, 2017, 7:57. INDICATIONS : E-T and O-G tube placements. MEDICAL HISTORY : Chronic obstructive pulmonary disease. SURGICAL HISTORY : Gastric bypass. ENCOUNTER: Initial ACUITY: 1 day PAIN SCORE: Non-responsive. LOCATION: Bilateral chest FINDINGS: Endotracheal tube is present in good position with tip 3.5 cm above the yaritza. Nasogastric tube desc ends into the stomach. There is mild bibasilar parenchymal opacity, left worse than right which is gr ossly unchanged. Cardiac contours are also stable. CONCLUSION: Satisfactory support line and tube positioning. Hussein Trejo MD on May 21, 2017 at 1:42 Board Certified Radiologist. This report was verified electronically.
[2017-05-21 01:53] LABS: PROTHROMBIN TIME - PATIENT 10.4 SEC (9.8-11.6)
[2017-05-21 02:01] LABS: AMORPHOUS SEDIMENT, URINE RARE; BACTERIA, URINE MANY /hpf; BILIRUBIN, URINE NEG (NEG); BLOOD, URINE MOD (NEG); GLUCOSE,URINE NEG (NEG); KETONE, URINE NEG (NEG); NITRITE,URINE NEG (NEG); URINE COLOR YELLOW (YELLW/STRAW); URINE LEUKOCYTE ESTERASE LARGE (NEG); WHITE BLOOD CELL CLUMPS MOD
[2017-05-21 02:15] LABS: ALBUMIN 2.2 GM/DL (3.4-5.0); ALKALINE PHOSPHATASE 117 U/L (45-117); ALT (GPT) 13 U/L (10-53); AST (GOT) 22 U/L (15-37); BICARBONATE 28.2 MEQ/L (21.0-32.0); BLOOD UREA NITROGEN 18 MG/DL (7-18); CALCIUM 8.5 MG/DL (8.5-10.1); CHLORIDE 109 MEQ/L (98-107); CREATININE 0.98 MG/DL (0.50-1.00); GLOMERULAR FILTRATION RATE 58 ML/MIN (>89); GLUCOSE,RANDOM 126 MG/DL (74-106); MAGNESIUM 2.2 MG/DL (1.5-2.5); PHOSPHORUS 2.5 MG/DL (2.5-4.9); SODIUM (NA) 144 MEQ/L (136-145); TOTAL BILIRUBIN ADULT 0.6 MG/DL (0.2-1.0); TOTAL PROTEIN 6.4 GM/DL (6.4-8.2); TROPONIN I LESS THAN 0.02 NG/ML (0.02-0.05)
[2017-05-21] MEDS ORDERED: MISCELLANEOUS NURSING INFORMATION XX SCH (02:30)
[2017-05-21] MEDS ORDERED: RESP: ALBUTEROL 2.5 MG/IPRATROPIUM 0.5 MG NEB (PRN) INH (02:30)
[2017-05-21] MEDS ORDERED: CHLORHEXIDINE GLUCONATE 2 % 1 PACK (2 CLOTHS) TOP PRN (02:30)
[2017-05-21] MEDS ORDERED: SODIUM CHLORIDE 0.9% FLUSH 10 ML FLUSH IV FLUSH PRN (02:30)
[2017-05-21] MEDS ORDERED: Vancomycin Consult Pharmacy 1 EA OTHER SCH (02:45)
[2017-05-21] MEDS ORDERED: VANCOMYCIN INJ 2,500 MG in SODIUM CHLORID 0.9% 500 ML INJ 500 ML IV ONE (03:00)
[2017-05-21] MEDS: AZITHROMYCIN INJ 500 MG in SODIUM CHLOR 0.9% 250 ML INJ 250 ML IV SCH (03:18)
[2017-05-21] MEDS: CHLORHEXIDINE GLUCONATE 2 % 1 PACK (2 CLOTHS) TOP SCH (04:00)
[2017-05-21] MEDS: RESP: ALBUTEROL 2.5 MG/IPRATROPIUM 0.5 MG NEB (SCH) NEB ×4 (04:23→20:35)
--- NOTE | 2017-05-21 04:25 | HHI.HP ---
HPI Service Critical Care Medicine Primary Care Physician Unknown Admission Diagnosis Sepsis, UTI, Hypercapneic Respiratory Failure. Diagnosis: Travel History International Travel<30 Days: No Contact w/Intl Traveler <30 Da: No Traveled to Known Affected Are: No Sepsis Criteria SIRS Criteria (2 or more): Temp > 100.9 or < 96.8, Heart rate over 90 Sepsis Criteria (SIRS+source): Infect source susp/known History of Present Illness HPI: 57-year-old female with a medical history significant for morbid obesity, COPD, sleep apnea, diabetes mellitus who was brought to the ER from residential with altered mental status, fevers and was noted to have an elevated PCO2 on ABG PCO2 79 pH 7.19. Patient was intubated and placed on mechanical ventilation by ER physician. After obtaining blood cultures empiric antibiotics were ordered. Patient was accepted for admission by critical care medicine service. When I evaluated the patient she was sedated with Versed, orally intubated on mechanical ventilation. History was obtained by reviewing records and discussion with Dr. Redman. Travel History International Travel<30 days: No Contact w/Intl Traveler<30days: No Traveled to known affect area: No History PFSH Past Medical History Anemia: Yes Asthma: No (UNABLE TO OBTAIN) Anxiety: Yes Depression: Yes Cancer: No Cardiovascular Problems: No (UNABLE TO OBTAIN) COPD: Yes (UNABLE TO OBTAIN) Cerebrovascular Accident: No (UNABLE TO OBTAIN) Diabetes: Yes Patient Takes Glucophage: No Diminished Hearing: No Diverticulitis: Yes Endocrine: No Gastrointestinal Disorders: Yes GERD: Yes (UNABLE TO OBTAIN) Genitourinary: No (UNABLE TO OBTAIN) Headaches: No (UNABLE TO OBTAIN) Hiatal Hernia: No (UNABLE TO OBTAIN) Herniated Disk: Yes Implanted Vascular Access Dvce: Yes Kidney Stones: No (UNABLE TO OBTAIN) Musculoskeletal: Yes (UNABLE TO OBTAIN) Neurologic: Yes (UNABLE TO OBTAIN) Psychiatric: Yes Reproductive: No (UNABLE TO OBTAIN) Respiratory: Yes (UNABLE TO OBTAIN) Immunizations Current: Yes Migraines: No (UNABLE TO OBTAIN) Renal Failure: No (UNABLE TO OBTAIN) Seizures: No (UNABLE TO OBTAIN) Sleep Apnea: Yes Thyroid Disease: No Ulcer: No (UNABLE TO OBTAIN) Tetanus Vaccination: Unknown Influenza Vaccination: Yes Past Surgical History Abdominal Surgery: Yes (COLOSTOMY; GASTRIC BYPASS) Cardiac Surgery: No (UNABLE TO OBTAIN) Ear Surgery: No (UNABLE TO OBTAIN) Endocrine Surgery: No (UNABLE TO OBTAIN) Eye Surgery: No (UNABLE TO OBTAIN) Genitourinary Surgery: No (UNABLE TO OBTAIN) Gynecologic Surgery: No (UNABLE TO OBTAIN) Neurologic Surgery: No (UNABLE TO OBTAIN) Oral Surgery: No (UNABLE TO OBTAIN) Thoracic Surgery: No (UNABLE TO OBTAIN) Other Surgery: Yes (UNABLE TO OBTAIN) Social History Alcohol Use: No Tobacco Use: No Substance Use: No Allergies-Medications Allergies-Medications (Allergen,Severity, Reaction): Coded Allergies: penicillin G (Unverified Allergy, Unknown, 05/21/17) Reported Meds & Prescriptions Reported Meds & Active Scripts Active Levaquin (Levofloxacin) 750 Mg Tablet 750 Mg PO DAILY Prednisone (48) 10 mg tab Dose Pack (Prednisone) 10 Mg Dspk 10 Mg PO DIRECTED Symbicort Inh (Budesonide/Formoterol Fumarate) 80-4.5 Mcg/Act Aero 2 Puff INH Q12HR Duoneb (Ipratropium-Albuterol Neb) 0.5-2.5 Mg/3 Ml Neb 1 Ampule INH Q6HR PRN 7 Days Reported Aplisol (Tuberculin Ppd) 5 Tub. Unit/0.1 Ml Inj Quetiapine (Quetiapine Fumarate) 200 Mg Tab 200 Mg PO HS Quetiapine (Quetiapine Fumarate) 100 Mg Tab 100 Mg PO DAILY Neurontin (Gabapentin) 300 Mg Cap 1,200 Mg PO TID Ativan (Lorazepam) 0.5 Mg Tab 0.5 Mg PO Q12HR PRN Amitriptyline (Amitriptyline HCl) 25 Mg Tab 25 Mg PO AC BREAKFAST Albuterol Neb (Albuterol Sulfate) 2.5 Mg/3 Ml Neb 2.5 Mg NEB Q8HR NEB PRN Aspirin 81 Mg Chew 81 Mg CHEW DAILY Amitriptyline (Amitriptyline HCl) 50 Mg Tab 75 Mg PO HS Physical Exam Vital Signs Vital Signs Date Time Temp Pulse Resp B/P (MAP) Pulse Ox O2 Delivery O2 Flow Rate FiO2 05/21/17 03:20 100 60 05/21/17 02:20 100 60 05/21/17 01:25 109 18 129/67 (87) 100 Ventilator 60 05/21/17 01:20 100 60 05/21/17 01:20 109 30 100 Ventilator 05/21/17 01:17 60 05/21/17 01:12 30 05/21/17 01:12 100 Non-Rebreather 05/21/17 01:08 102.5 118 30 122/52 (75) 100 Physical Exam HEENT/ Neuro: Sedated, orally intubated, Pallor present, no icterus, tongue/ mucosa moist Neck: No JVD Chest/Pulm: on mech vent, good air entry bilaterally, no wheezing or crackles. Scattered rhonchi bilaterally CVS: S1-S2 regular, no murmur GI/abdomen: soft, nontender, bowel sounds sluggish. Morbidly obese. Prior healed surgical scars noted Extremities: warm bilaterally, bilateral trace edema Laboratory Laboratory Tests Test 05/21/17 00:54 05/21/17 01:10 05/21/17 01:20 05/21/17 01:40 Blood Gas Puncture Site IV Blood Gas Patient Temperature 98.6 Venous Blood pH 7.20 Venous Blood Partial Pressure CO2 79 Venous Blood Partial Pressure O2 68 Venous Blood HCO3 30 Venous Blood Oxygen Saturation 90 Venous Blood Oxygen Content 15.3 Venous Blood Base Excess 2.1 Oxygen Delivery Device NASAL CANNULA Blood Gas Liter Flow 5 White Blood Count 9.8 Red Blood Count 4.26 Hemoglobin 12.0 Hematocrit 37.3 Mean Corpuscular Volume 87.5 Mean Corpuscular Hemoglobin 28.1 Mean Corpuscular Hemoglobin Concent 32.2 Red Cell Distribution Width 17.3 Platelet Count 120 Mean Platelet Volume 10.6 Neutrophils (%) (Auto) 85.4 Lymphocytes (%) (Auto) 6.1 Monocytes (%) (Auto) 7.8 Eosinophils (%) (Auto) 0.4 Basophils (%) (Auto) 0.3 Neutrophils # (Auto) 8.4 Lymphocytes # (Auto) 0.6 Monocytes # (Auto) 0.8 Eosinophils # (Auto) 0.0 Basophils # (Auto) 0.0 CBC Comment DIFF FINAL Differential Comment Prothrombin Time 10.4 Prothromb Time International Ratio 1.0 Activated Partial Thromboplast Time 26.1 Blood Urea Nitrogen 18 Creatinine 0.98 Random Glucose 126 Total Protein 6.4 Albumin 2.2 Calcium Level 8.5 Phosphorus Level 2.5 Magnesium Level 2.2 Alkaline Phosphatase 117 Aspartate Amino Transf (AST/SGOT) 22 Alanine Aminotransferase (ALT/SGPT) 13 Total Bilirubin 0.6 Sodium Level 144 Potassium Level 4.5 Chloride Level 109 Carbon Dioxide Level 28.2 Anion Gap 7 Estimat Glomerular Filtration Rate 58 Total Creatine Kinase 31 Troponin I LESS THAN 0.02 Lipase 37 Human Chorionic Gonadotropin, Quant LESS THAN 1 Lactic Acid Level 1.2 Urine Color YELLOW Urine Turbidity CLOUDY Urine pH 6.0 Urine Specific [place] 1.019 Urine Protein 100 Urine Glucose (UA) NEG Urine Ketones NEG Urine Occult Blood MOD Urine Nitrite NEG Urine Bilirubin NEG Urine Urobilinogen 4.0 Urine Leukocyte Esterase LARGE Urine RBC 29 Urine WBC Urine WBC Clumps MOD Urine Amorphous Sediment RARE Urine Bacteria MANY Microscopic Urinalysis Comment CATH-CULTURE IND Test 05/21/17 03:04 Blood Gas Puncture Site R PEDAL Blood Gas Patient Temperature 98.6 Blood Gas HCO3 29 Blood Gas Base Excess 2.9 Blood Gas Oxygen Saturation 95 Arterial Blood pH 7.32 Arterial Blood Partial Pressure CO2 57 Arterial Blood Partial Pressure O2 90 Arterial Blood Oxygen Content 15.7 Arterial Blood Carboxyhemoglobin 1.6 Arterial Blood Methemoglobin 0.8 Blood Gas Hemoglobin 11.7 Oxygen Delivery Device VENTILATOR Blood Gas Ventilator Setting PRVC Blood Gas Inspired Oxygen 60 Date/Time Source Procedure Growth Status 05/21/17 01:15 Blood Peripheral Aerobic Blood Culture Pending Received 05/21/17 01:15 Blood Peripheral Anaerobic Blood Culture Pending Received 05/21/17 01:45 Nasal Washing Influenza Types A,B Antigen (JOHNNY) - Final NEGATIVE FOR FLU A AND B ANTIGEN.... Complete 05/21/17 01:40 Urine Catheterized Urine Legionella Antigen Pending Received 05/21/17 01:40 Urine Catheterized Urine Streptococcus pneumoniae Antigen (M Pending Received Result Diagram: 05/21/17 0110 05/21/17 0110 Imaging Last Impressions Chest X-Ray 05/21/17 0103 Signed Impressions: Service Date/Time: May 01:26 - CONCLUSION: Satisfactory support line and tube positioning. Hussein Trejo MD Septic Shock Reassessment Septic shock perfusion: reassessment completed Caprini VTE Risk Assessment Caprini VTE Risk Assessment: Mod/High Risk (score >= 2) Caprini Risk Assessment Model Point Value = 1 Point Value = 2 Point Value = 3 Point Value = 5 Age 41-60 Minor surgery BMI > 25 kg/m2 Swollen legs Varicose veins or History of unexplained or recurrent spontaneous Oral contraceptives or hormone replacement Sepsis (< 1 month) Serious lung disease, including pneumonia (< 1 month) Abnormal pulmonary function Acute myocardial infarction Congestive heart failure (< 1 month) History of inflammatory bowel disease Medical patient at bed rest Age 61-74 Arthroscopic surgery Major open surgery (> 45 min) Laparoscopic surgery (> 45 min) Malignancy Confined to bed (> 72 hours) Immobilizing plaster cast Central venous access Age >= 75 History of VTE Family history of VTE Factor V Leiden Prothrombin [id number] Lupus anticoagulant Anticardiolipin antibodies Elevated serum homocysteine Heparin-induced thrombocytopenia Other congenital or acquired thrombophilia Stroke (< 1 month) Elective arthroplasty Hip, pelvis, or leg fracture Acute spinal cord injury (< 1 month) Prophylaxis Regimen Total Risk Factor Score Risk Level Prophylaxis Regimen 0-1 Low Early ambulation 2 Moderate Order ONE of the following: *Sequential Compression Device (SCD) *Heparin 5000 units SQ BID 3-4 Higher Order ONE of the following medications: *Heparin 5000 units SQ TID *Enoxaparin/Lovenox 40 mg SQ daily (WT < 150 kg, CrCl > 30 mL/min) *Enoxaparin/Lovenox 30 mg SQ daily (WT < 150 kg, CrCl > 10-29 mL/min) *Enoxaparin/Lovenox 30 mg SQ BID (WT < 150 kg, CrCl > 30 mL/min) AND/OR *Sequential Compression Device (SCD) 5 or more Highest Order ONE of the following medications: *Heparin 5000 units SQ TID (Preferred with Epidurals) *Enoxaparin/Lovenox 40 mg SQ daily (WT < 150 kg, CrCl > 30 mL/min) *Enoxaparin/Lovenox 30 mg SQ daily (WT < 150 kg, CrCl > 10-29 mL/min) *Enoxaparin/Lovenox 30 mg SQ BID (WT < 150 kg, CrCl > 30 mL/min) AND *Sequential Compression Device (SCD) Assessment and Plan Assessment and Plan 57-year-old female with: Sepsis Encephalopathy Acute respiratory failure on mechanical ventilation UTI Possible pneumonia Morbid obesity COPD Schizophrenia Plan: Neuro: Sedation with Versed/propofol and fentanyl when necessary as needed. Daily sedation vacation. Follow neuro status. Resume psych meds in a.m. if neurologic status improving. Cardiovascular: IV hydration, watch for hypotension. Cycle cardiac enzymes Pulmonary: Continue mechanical ventilation, vent bundle, bronchodilators as needed. Daily C Pap trials starting tomorrow provided improvement in neurologic status. GI/liver: Start tube feeds in a.m. and advanced to goal as tolerated. Renal/: IV hydration, strict intake output, monitor and replete electrolytes, follow BUN/creatinine ID: follow up pancultures. Check urine for strep pneumo and Legionella antigen. Check nasal washings for influenza A and B. Empiric antibiotic coverage with IV vancomycin/aztreonam/azithromycin in view of penicillin allergy. ID consult requested: Heme: Follow CBC Endocrine: SSI for glycemic control if needed. Prophylaxis Pepcid/SCDs/Lovenox Condition critical Time spent on critical care excluding procedures 60 minutes: Rai Sanchez MD May 21, 2017 04:25
[2017-05-21] MEDS: SODIUM CHLOR 0.9% 1000 ML INJ 1,000 ML IV SCH ×3 (05:56→23:00)
[2017-05-21] MEDS ORDERED: CHLORHEXIDINE 0.12% (ORAL KIT) 15 ML CUP MT SCH (08:00)
[2017-05-21] MEDS: ACETAMINOPHEN 325 MG TAB PO PRN (08:35)
[2017-05-21] MEDS: SODIUM CHLORIDE 0.9% FLUSH 10 ML FLUSH IV FLUSH SCH ×2 (08:36→21:00)
[2017-05-21] MEDS: FAMOTIDINE 20 MG TAB TUBE SCH ×2 (08:43→21:25)
[2017-05-21] MEDS: CHLORHEXIDINE 0.12% (ORAL KIT) 15 ML CUP MT SCH ×2 (08:44→21:26)
[2017-05-21] MEDS ORDERED: AZTREONAM INJ 2,000 MG in SODIUM CHLORIDE 0.9% INJ 100 ML IV SCH (09:00)
--- NOTE | 2017-05-21 09:46 | PD.ID.CON ---
History of Present Illness Service Infectious disease Consult Requested By Critical care medicine Dr. Sanchez Reason for Consult Evaluation and management of pneumonia, UTI and encephalopathy. Patient multiple admissions in the recent past. Primary Care Physician Unknown Diagnoses: History of Present Illness Ms. Jason Renee is a 57-year-old female with past medical history significant for morbid obesity, sleep apnea, COPD who has been admitted multiple times to the hospital for presented to the ER over the last several years. She has had one intubation 2016 and yet another in 2017 that I could identify from past medical records. Patient also has a history of MRSA in the sputum as well as ESBL Escherichia coli in the urine in the past. Patient is a resident of [facility] and was admitted from the emergency room from the long-term for altered mental status. Upon arrival her PCO2 was elevated at 79 and a pH was 7.19. Patient is intubated and placed on mechanical ventilation by the ER physician. It appears based on review of long-term records that she was evaluated for possible UTI and pneumonia. Chest x-ray done on May 19, 2017 showed a mild left lower lobe infiltrate. UA was abnormal and patient was started on oral Levaquin and prednisone for possible acute COPD exacerbation. Given her multiple admissions at risk for infections patient had a sepsis workup and blood cultures, sputum cultures and urine with reflex to urine culture. Her urine was found to be cloudy and cultures are pending at the present time. Infectious disease is consulted for evaluation and management of pneumonia and UTI in and cephalic with the patient multiple admissions to the hospital in the recent past. At the time of my evaluation patient is in the ICU currently intubated, on a ventilator and sedated. She is currently not on any vasopressors. Her urine output is fairly okay. She has not diarrhea. She has small amount of white to yellow secretions. Upon examination of her skin folds there was no evidence of any infection. 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 Reported history of gastric bypass this remains to be confirmed. Reported Medications Reported Meds & Active Scripts Active Levaquin (Levofloxacin) 750 Mg Tablet 750 Mg PO DAILY Prednisone (48) 10 mg tab Dose Pack (Prednisone) 10 Mg Dspk 10 Mg PO DIRECTED Symbicort Inh (Budesonide/Formoterol Fumarate) 80-4.5 Mcg/Act Aero 2 Puff INH Q12HR Duoneb (Ipratropium-Albuterol Neb) 0.5-2.5 Mg/3 Ml Neb 1 Ampule INH Q6HR PRN 7 Days Reported Buspirone (Buspirone HCl) 10 Mg Tab 10 Mg PO DAILY Lyrica (Pregabalin) 75 Mg Cap 75 Mg PO BID Quetiapine (Quetiapine Fumarate) 200 Mg Tab 200 Mg PO HS Quetiapine (Quetiapine Fumarate) 100 Mg Tab 100 Mg PO DAILY Neurontin (Gabapentin) 300 Mg Cap 1,200 Mg PO TID Ativan (Lorazepam) 0.5 Mg Tab 0.5 Mg PO Q12HR PRN Amitriptyline (Amitriptyline HCl) 25 Mg Tab 25 Mg PO AC BREAKFAST Albuterol Neb (Albuterol Sulfate) 2.5 Mg/3 Ml Neb 2.5 Mg NEB Q8HR NEB PRN Aspirin 81 Mg Chew 81 Mg CHEW DAILY Amitriptyline (Amitriptyline HCl) 50 Mg Tab 75 Mg PO HS Active Ordered Medications Current Medications Medications (Trade) Dose Ordered Sig/Elliot Route Start Time Stop Time Status Last Admin Sodium Chloride 1,000 ml @ 100 mls/hr Q10H IV 05/21/17 03:00 05/21/17 05:56 (NS Flush) 2 ml UNSCH PRN IV FLUSH 05/21/17 02:30 (NS Flush) 2 ml BID IV FLUSH 05/21/17 09:00 05/21/17 08:36 (Tylenol) 650 mg Q6H PRN PO 05/21/17 02:30 05/21/17 08:35 (Duoneb Neb) 1 ampule Q6HR NEB NEB 05/21/17 04:00 05/21/17 09:27 (Duoneb Neb) 1 ampule Q4HR NEB PRN INH 05/21/17 02:30 (Peridex 0.12% Liq) 15 ml BID@08,20 MT 05/21/17 08:00 05/21/17 08:44 (Pepcid) 20 mg BID TUBE 05/21/17 09:00 05/21/17 08:43 Miscellaneous Information 1 Q361D XX 05/21/17 02:30 05/21/17 02:30 (Chlorhexidine 2% Cloth) 3 pack Taper DAILY@04 TOP 05/21/17 04:00 05/17/18 03:59 05/21/17 04:00 (Chlorhexidine 2% Cloth) 3 pack UNSCH PRN TOP 05/21/17 02:30 Propofol 100 ml @ 4.35 mls/hr TITRATE PRN IV 05/21/17 02:30 Fentanyl Citrate 250 ml @ 5 mls/hr TITRATE PRN IV 05/21/17 02:30 Pharmacy Profile Note 0 ml @ 0 mls/hr UNSCH OTHER 05/21/17 02:45 Azithromycin 500 mg/Sodium Chloride 250 ml @ 250 mls/hr Q24H IV 05/21/17 03:00 05/21/17 03:18 Aztreonam 2000 mg/ Sodium Chloride 100 ml @ 200 mls/hr Q6H IV 05/21/17 12:00 Vancomycin HCl 1750 mg/Sodium Chloride 517.5 ml @ 250 mls/hr Q24H IV 05/22/17 06:00 Miscellaneous Information SPECIFIC LAB TO BE DRAWN:[facility] DATE... ONCE ONCE .XX 05/24/17 05:45 05/24/17 05:46 Family History Could not be obtained Social History Could not be obtained. Is a resident of a long-term. Physical Exam Vital Signs Vital Signs Date Time Temp Pulse Resp B/P (MAP) Pulse Ox O2 Delivery O2 Flow Rate FiO2 05/21/17 07:28 96 60 05/21/17 06:00 101 05/21/17 05:12 101 05/21/17 04:55 60 05/21/17 04:24 100.4 106 18 151/65 (93) 100 05/21/17 04:20 100 60 05/21/17 03:20 100 60 05/21/17 02:20 100 60 05/21/17 01:25 109 18 129/67 (87) 100 Ventilator 60 05/21/17 01:20 100 60 05/21/17 01:20 109 30 100 Ventilator 05/21/17 01:17 60 05/21/17 01:12 30 05/21/17 01:12 100 Non-Rebreather 05/21/17 01:08 102.5 118 30 122/52 (75) 100 Physical Exam GENERAL: Morbidly Obese patient, in no apparent distress. SKIN: No rashes, ecchymoses or lesions. Cool and dry. All skin folds examined with no evidence of infection. HEAD: Atraumatic. Normocephalic. No temporal or scalp tenderness. EYES: Pupils equal round and reactive. No scleral icterus. No injection or drainage. ENT: Intubated. NECK: Trachea midline. Supple, nontender, no meningeal signs. CARDIOVASCULAR: Heart sounds distant but audible. No murmur appreciated. RESPIRATORY: Anterior examination with no evidence of rhonchi. No adventitious sounds heard. Air entry decreased in the bases. GASTROINTESTINAL: Abdomen soft, non-tender, nondistended. MUSCULOSKELETAL: Extremities without clubbing, cyanosis. Pedal edema. NEUROLOGICAL: Sedated. Occasionally opens eyes when turned for examining her back. Psych could not be assessed IV line sites with no evidence of infection. Laboratory Laboratory Tests Test 05/21/17 00:54 05/21/17 01:10 05/21/17 01:20 05/21/17 01:40 Blood Gas Puncture Site IV Blood Gas Patient Temperature 98.6 Venous Blood pH 7.20 Venous Blood Partial Pressure CO2 79 Venous Blood Partial Pressure O2 68 Venous Blood HCO3 30 Venous Blood Oxygen Saturation 90 Venous Blood Oxygen Content 15.3 Venous Blood Base Excess 2.1 Oxygen Delivery Device NASAL CANNULA Blood Gas Liter Flow 5 White Blood Count 9.8 Red Blood Count 4.26 Hemoglobin 12.0 Hematocrit 37.3 Mean Corpuscular Volume 87.5 Mean Corpuscular Hemoglobin 28.1 Mean Corpuscular Hemoglobin Concent 32.2 Red Cell Distribution Width 17.3 Platelet Count 120 Mean Platelet Volume 10.6 Neutrophils (%) (Auto) 85.4 Lymphocytes (%) (Auto) 6.1 Monocytes (%) (Auto) 7.8 Eosinophils (%) (Auto) 0.4 Basophils (%) (Auto) 0.3 Neutrophils # (Auto) 8.4 Lymphocytes # (Auto) 0.6 Monocytes # (Auto) 0.8 Eosinophils # (Auto) 0.0 Basophils # (Auto) 0.0 CBC Comment DIFF FINAL Differential Comment Prothrombin Time 10.4 Prothromb Time International Ratio 1.0 Activated Partial Thromboplast Time 26.1 Blood Urea Nitrogen 18 Creatinine 0.98 Random Glucose 126 Total Protein 6.4 Albumin 2.2 Calcium Level 8.5 Phosphorus Level 2.5 Magnesium Level 2.2 Alkaline Phosphatase 117 Aspartate Amino Transf (AST/SGOT) 22 Alanine Aminotransferase (ALT/SGPT) 13 Total Bilirubin 0.6 Sodium Level 144 Potassium Level 4.5 Chloride Level 109 Carbon Dioxide Level 28.2 Anion Gap 7 Estimat Glomerular Filtration Rate 58 Total Creatine Kinase 31 Troponin I LESS THAN 0.02 Lipase 37 Human Chorionic Gonadotropin, Quant LESS THAN 1 Lactic Acid Level 1.2 Urine Color YELLOW Urine Turbidity CLOUDY Urine pH 6.0 Urine Specific [place] 1.019 Urine Protein 100 Urine Glucose (UA) NEG Urine Ketones NEG Urine Occult Blood MOD Urine Nitrite NEG Urine Bilirubin NEG Urine Urobilinogen 4.0 Urine Leukocyte Esterase LARGE Urine RBC 29 Urine WBC Urine WBC Clumps MOD Urine Amorphous Sediment RARE Urine Bacteria MANY Microscopic Urinalysis Comment CATH-CULTURE IND Test 05/21/17 03:04 05/21/17 04:30 Blood Gas Puncture Site R PEDAL Blood Gas Patient Temperature 98.6 Blood Gas HCO3 29 Blood Gas Base Excess 2.9 Blood Gas Oxygen Saturation 95 Arterial Blood pH 7.32 Arterial Blood Partial Pressure CO2 57 Arterial Blood Partial Pressure O2 90 Arterial Blood Oxygen Content 15.7 Arterial Blood Carboxyhemoglobin 1.6 Arterial Blood Methemoglobin 0.8 Blood Gas Hemoglobin 11.7 Oxygen Delivery Device VENTILATOR Blood Gas Ventilator Setting PRVC Blood Gas Inspired Oxygen 60 Nasal Screen MRSA (PCR) MRSA DETECTED Date/Time Source Procedure Growth Status 05/21/17 01:15 Blood Peripheral Aerobic Blood Culture Pending Received 05/21/17 01:15 Blood Peripheral Anaerobic Blood Culture Pending Received 05/21/17 01:45 Nasal Washing Influenza Types A,B Antigen (JOHNNY) - Final NEGATIVE FOR FLU A AND B ANTIGEN.... Complete 05/21/17 01:40 Urine Catheterized Urine Legionella Antigen - Final PRESUMPTIVE NEGATIVE FOR LEGIONELLA P... Complete 05/21/17 01:40 Urine Catheterized Urine Streptococcus pneumoniae Antigen (M - Final PRESUMPTIVE NEGATIVE FOR STREPTOCOCCU... Complete Result Diagram: 05/21/17 0110 05/21/17 0110 Imaging Last Impressions Chest X-Ray 05/21/17 0103 Signed Impressions: Service Date/Time: May 01:26 - CONCLUSION: Satisfactory support line and tube positioning. Hussein Trejo MD Assessment and Plan Assessment and Plan Sepsis present on admission UTI present on admission. History of ESBL in the past. Multiple hospitalizations in the past. Community-acquired pneumonia present on admission. Prior history of MRSA pneumonia Acute metabolic encephalopathy likely secondary to CO2 narcosis as well as infection Acute COPD exacerbation Morbid obesity History of depression and other psychiatric disorders Diabetes with diabetic neuropathy Recommendation: Continue aztreonam IV(reported history of penicillin patient intubated details could not be obtained) Continue vancomycin IV target trough 15-20 In summary azithromycin IV for atypical pneumonia Follow Legionella antigen Follow cultures Follow clinically Discussed with RN No family at bedside Critical thinking, reviewed long-term records. Ani Sanchez MD May 21, 2017 09:46
[2017-05-21] MEDS: AZTREONAM INJ 2,000 MG in SODIUM CHLORIDE 0.9% INJ 100 ML IV SCH ×2 (12:14→17:45)
[2017-05-21] MEDS ORDERED: VANCOMYCIN INJ 1,250 MG in SODIUM CHLOR 0.9% 250 ML INJ 250 ML IV SCH (13:00)
[2017-05-21] MEDS ORDERED: PILL SPLITTER OTHER PRN (15:30)
[2017-05-21] MEDS: fentaNYL DRIP 250 ML IV PRN (16:30)
[2017-05-21] MEDS: QUEtiapine FUMARATE 200 MG TAB PO SCH (21:25)
[2017-05-21] MEDS: AMITRIPTYLINE HCL 75 MG TAB PO SCH (21:25)
[2017-05-22] VITALS (17 sets, daily range): BP systolic 115–144; BP diastolic 57–64; PULSE 74–103; RESP 18–22; TEMP 98.5–100.4; O2SAT 95–100
[2017-05-22] MEDS: AZTREONAM INJ 2,000 MG in SODIUM CHLORIDE 0.9% INJ 100 ML IV SCH ×5 (00:54→23:22)
[2017-05-22] MEDS: AZITHROMYCIN INJ 500 MG in SODIUM CHLOR 0.9% 250 ML INJ 250 ML IV SCH (03:00)
[2017-05-22] MEDS: CHLORHEXIDINE GLUCONATE 2 % 1 PACK (2 CLOTHS) TOP SCH (04:00)
[2017-05-22] MEDS: RESP: ALBUTEROL 2.5 MG/IPRATROPIUM 0.5 MG NEB (SCH) NEB ×4 (04:27→21:35)
[2017-05-22] MEDS: AMITRIPTYLINE HCL 25 MG TAB PO SCH (05:24)
[2017-05-22 05:27] LABS: AUTOMATED NEUTROPHIL # 6.2 TH/MM3 (1.8-7.7); BASOPHIL % 0.3 % (0.0-2.0); EOSINOPHIL % 0.4 % (0.0-4.0); HEMATOCRIT 35.5 % (35.0-46.0); HEMOGLOBIN 10.9 GM/DL (11.6-15.3); LYMPH % 8.1 % (9.0-44.0); LYMPHOCYTE # 0.6 TH/MM3 (1.0-4.8); MEAN CELL VOLUME 89.2 FL (80.0-100.0); MEAN CORPUSCULAR HEMOGLOBIN 27.3 PG (27.0-34.0); MEAN CORPUSCULAR HGB CONC 30.6 % (32.0-36.0); MEAN PLATELET VOLUME 10.5 FL (7.0-11.0); MONO % 7.2 % (0.0-8.0); MONOCYTE # 0.5 TH/MM3 (0-0.9); PLATELET COUNT 124 TH/MM3 (150-450); RED BLOOD COUNT 3.98 MIL/MM3 (4.00-5.30); RED CELL DISTRIBUTION WIDTH 17.5 % (11.6-17.2); WHITE BLOOD COUNT 7.4 TH/MM3 (4.0-11.0)
[2017-05-22 05:57] LABS: ALKALINE PHOSPHATASE 109 U/L (45-117); ALT (GPT) 12 U/L (10-53); AST (GOT) 19 U/L (15-37); BICARBONATE 29.3 MEQ/L (21.0-32.0); BLOOD UREA NITROGEN 22 MG/DL (7-18); CALCIUM 8.1 MG/DL (8.5-10.1); CHLORIDE 112 MEQ/L (98-107); CREATININE 1.07 MG/DL (0.50-1.00); GLOMERULAR FILTRATION RATE 53 ML/MIN (>89); GLUCOSE,RANDOM 151 MG/DL (74-106); MAGNESIUM 2.3 MG/DL (1.5-2.5); PHOSPHORUS 1.5 MG/DL (2.5-4.9); SODIUM (NA) 147 MEQ/L (136-145); TOTAL BILIRUBIN ADULT 0.3 MG/DL (0.2-1.0); TOTAL PROTEIN 6.2 GM/DL (6.4-8.2)
[2017-05-22] MEDS ORDERED: VANCOMYCIN INJ 1,750 MG in SODIUM CHLORID 0.9% 500 ML INJ 500 ML IV SCH (06:00)
[2017-05-22] MEDS: CHLORHEXIDINE 0.12% (ORAL KIT) 15 ML CUP MT SCH ×2 (08:00→20:23)
[2017-05-22] MEDS: SODIUM CHLORIDE 0.9% FLUSH 10 ML FLUSH IV FLUSH SCH ×2 (09:00→20:22)
--- NOTE | 2017-05-22 09:23 | HHI.CCPN ---
Subjective Remarks/Hospital Course 57-year-old female with a medical history significant for morbid obesity, COPD, sleep apnea, diabetes mellitus who was brought to the ER from senior care with altered mental status, fevers and was noted to have an elevated PCO2 on ABG PCO2 79 pH 7.19. Patient was intubated and placed on mechanical ventilation by ER physician. After obtaining blood cultures empiric antibiotics were ordered. Patient was accepted for admission by critical care medicine service. When I evaluated the patient she was sedated with Versed, orally intubated on mechanical ventilation. History was obtained by reviewing records and discussion with Dr. Redman. Subjective : 05/22: T-max 101.3. Urine culture revealed gram-negative rods. Patient remains lightly sedated but following commands. Tolerating tube feeds. CPAP trials to be initiated today. Objective Vital Signs Date Time Temp Pulse Resp B/P (MAP) Pulse Ox O2 Delivery O2 Flow Rate FiO2 05/22/17 08:32 96 40 05/22/17 06:00 82 05/22/17 04:00 100.4 18 144/64 (90) 05/21/17 01:25 Ventilator Intake and Output 05/22/17 05/22/17 05/23/17 08:00 16:00 00:00 Intake Total 395 ml Output Total 651 ml Balance -256 ml Result Diagram: 05/22/17 0420 05/22/17 0420 Other Results Microbiology Date/Time Source Procedure Growth Status 05/21/17 01:45 Nasal Washing Influenza Types A,B Antigen (JOHNNY) - Final NEGATIVE FOR FLU A AND B ANTIGEN.... Complete 05/21/17 01:40 Urine Catheterized Urine Legionella Antigen - Final PRESUMPTIVE NEGATIVE FOR LEGIONELLA P... Complete 05/21/17 01:40 Urine Catheterized Urine Streptococcus pneumoniae Antigen (M - Final PRESUMPTIVE NEGATIVE FOR STREPTOCOCCU... Complete Imaging Last Impressions Chest X-Ray 05/21/17102 Signed Impressions: Service Date/Time: May 01:26 - CONCLUSION: Satisfactory support line and tube positioning. Hussein Trejo MD Last Impressions Chest X-Ray 05/21/17102 Signed Impressions: Service Date/Time: May 01:26 - CONCLUSION: Satisfactory support line and tube positioning. Hussein Trejo MD Objective Remarks HEENT/ Neuro: Sedated, orally intubated, Pallor present, no icterus, tongue/ mucosa moist. GCS 11 T, following commands Neck: No JVD Chest/Pulm: on mech vent, good air entry bilaterally, no wheezing or crackles. Clear to auscultation bilaterally CVS: S1-S2 regular, no murmur GI/abdomen: soft, nontender, bowel sounds sluggish. Morbidly obese. Prior healed surgical scars noted Extremities: warm bilaterally, bilateral trace edema A/P Assessment and Plan 57-year-old female with: Sepsis Encephalopathy Acute respiratory failure on mechanical ventilation UTI Possible pneumonia Morbid obesity COPD Schizophrenia Plan: Neuro: Sedation with Versed/propofol and fentanyl when necessary as needed. Daily sedation vacation. Follow neuro status. 05/21 resumed psych meds-to include amitriptyline, Serquel and Buspar. Gabapentin and Lyrica remain on hold Cardiovascular: Telemetry sinus rhythm Maintain MAP greater than 65 mmHg Pulmonary: Continue mechanical ventilation, vent bundle, bronchodilators as needed. Daily C Pap trials as tolerated GI/liver: Continue tube feeds in a.m. and advanced to goal as tolerated. Renal/: IV KVO strict intake output monitor and replete electrolytes, follow BUN/creatinine ID: follow up pancultures. Urine for strep pneumo and Legionella antigen-negative Nasal washings for influenza A and B-negative Urine aeauegy-izgn-[id number] rods Empiric antibiotic coverage with IV vancomycin/aztreonam/azithromycin in view of penicillin allergy. ID consult following Heme: Follow CBC Transfused hemoglobin less than 7 Endocrine: SSI for glycemic control if needed. Prophylaxis Pepcid/SCDs/Lovenox my billing statement This patient remains critically ill with one or more organ systems which are or may become a threat to life. I have spent in excess of 30 minutes discontinuously in the care and management of this patient. This time is exclusive of procedures, and includes, but is not limited to, evaluation of the patient, review of the medical record, discussions with family, consultants, nursing staff, or respiratory therapy, and documentation in the medical record. Physician Suzanne Mcdonald MD May 22, 2017 09:22
[2017-05-22] MEDS: BUDESONIDE-FORMOTEROL 80/4.5 MCG INHALER INH SCH ×2 (10:00→21:00)
[2017-05-22] MEDS: ASPIRIN 81 MG CHEW TAB CHEW SCH (10:05)
[2017-05-22] MEDS: busPIRone HCL 10 MG TAB PO SCH (10:05)
[2017-05-22] MEDS: QUEtiapine FUMARATE 100 MG TAB PO SCH (10:05)
[2017-05-22] MEDS: FAMOTIDINE 20 MG TAB TUBE SCH ×2 (10:06→20:22)
--- NOTE | 2017-05-22 10:27 | EKG ---
Date Performed: 05/21/2017 Time Performed: 01:20:13 PTAGE: 57 years EKG: SINUS TACHYCARDIA RIGHT BUNDLE BRANCH BLOCK ABNORMAL ECG PREVIOUS TRACING : 03/18/2017 17.00 Since the prior tracing, the sinus tachycardia and the righ t bundle branch block are new. DOCTOR: Rica Dunne Interpretating Date/Time 05/22/2017 10:27:21
--- NOTE | 2017-05-22 12:19 | HHI.IDPN ---
Subjective Subjective Remarks Ms. Jason Renee is a 57-year-old female with past medical history significant for morbid obesity, sleep apnea, COPD who has been admitted multiple times to the hospital for presented to the ER over the last several years. She has had one intubation 2016 and yet another in 2017 that I could identify from past medical records. Patient also has a history of MRSA in the sputum as well as ESBL Escherichia coli in the urine in the past. Patient is a resident of [facility] and [facility] and was admitted from the emergency room from the retirement for altered mental status. Upon arrival her PCO2 was elevated at 79 and a pH was 7.19. Patient is intubated and placed on mechanical ventilation by the ER physician. It appears based on review of retirement records that she was evaluated for possible UTI and pneumonia. Chest x-ray done on May 19, 2017 showed a mild left lower lobe infiltrate. UA was abnormal and patient was started on oral Levaquin and prednisone for possible acute COPD exacerbation. Given her multiple admissions at risk for infections patient had a sepsis workup and blood cultures, sputum cultures and urine with reflex to urine culture. Her urine was found to be cloudy and cultures are pending at the present time. Infectious disease is consulted for evaluation and management of pneumonia and UTI in and cephalic with the patient multiple admissions to the hospital in the recent past. At the time of my evaluation patient is in the ICU currently intubated, on a ventilator and sedated. She is currently not on any vasopressors. Her urine output is fairly okay. She has not diarrhea. She has small amount of white to yellow secretions. Upon examination of her skin folds there was no evidence of any infection. Overnight events reviewed No fevers No rash No diarrhea Not on pressors. UO good. Secretions minimal. 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 Reported history of gastric bypass this remains to be confirmed. Allergies: Coded Allergies: penicillin G (Unverified Allergy, Unknown, 05/21/17) Objective . Vital Signs Date Time Temp Pulse Resp B/P (MAP) Pulse Ox O2 Delivery O2 Flow Rate FiO2 05/22/17 11:28 40 05/22/17 11:28 97 40 05/22/17 10:00 103 05/22/17 08:32 96 40 05/22/17 08:00 50 05/22/17 08:00 75 05/22/17 08:00 100.2 75 18 115/57 (76) 96 05/22/17 06:00 82 05/22/17 04:26 100 40 05/22/17 04:00 81 05/22/17 04:00 100.4 81 18 144/64 (90) 05/22/17 04:00 50 05/22/17 00:00 100.4 82 18 117/60 (79) 98 05/22/17 00:00 82 05/22/17 00:00 50 05/21/17 23:46 98 40 05/21/17 22:00 82 05/21/17 20:27 96 40 05/21/17 20:00 50 05/21/17 20:00 100.9 79 18 102/52 (69) 96 05/21/17 20:00 79 05/21/17 18:00 86 05/21/17 16:00 50 05/21/17 16:00 90 05/21/17 16:00 101.3 90 18 124/60 (81) 96 05/21/17 15:06 99 40 05/21/17 15:00 100.9 87 18 125/60 (81) 99 05/21/17 14:00 82 05/21/17 14:00 100.0 82 18 111/59 (76) 97 05/21/17 13:00 100.2 84 18 114/56 (75) 97 05/22/17 05/22/17 05/23/17 15:00 23:00 07:00 Output Total 0 ml Balance 0 ml Tube Feeding Residual Discard 0 ml . Laboratory Tests Test 05/21/17 01:10 05/22/17 04:20 White Blood Count 9.8 TH/MM3 7.4 TH/MM3 Red Blood Count 4.26 MIL/MM3 3.98 MIL/MM3 Hemoglobin 12.0 GM/DL 10.9 GM/DL Hematocrit 37.3 % 35.5 % Mean Corpuscular Volume 87.5 FL 89.2 FL Mean Corpuscular Hemoglobin 28.1 PG 27.3 PG Mean Corpuscular Hemoglobin Concent 32.2 % 30.6 % Red Cell Distribution Width 17.3 % 17.5 % Platelet Count 120 TH/MM3 124 TH/MM3 Mean Platelet Volume 10.6 FL 10.5 FL Neutrophils (%) (Auto) 85.4 % 84.0 % Lymphocytes (%) (Auto) 6.1 % 8.1 % Monocytes (%) (Auto) 7.8 % 7.2 % Eosinophils (%) (Auto) 0.4 % 0.4 % Basophils (%) (Auto) 0.3 % 0.3 % Neutrophils # (Auto) 8.4 TH/MM3 6.2 TH/MM3 Lymphocytes # (Auto) 0.6 TH/MM3 0.6 TH/MM3 Monocytes # (Auto) 0.8 TH/MM3 0.5 TH/MM3 Eosinophils # (Auto) 0.0 TH/MM3 0.0 TH/MM3 Basophils # (Auto) 0.0 TH/MM3 0.0 TH/MM3 CBC Comment DIFF FINAL DIFF FINAL Differential Comment Laboratory Tests Test 05/21/17 01:10 05/21/17 01:20 05/22/17 04:20 Blood Urea Nitrogen 18 MG/DL 22 MG/DL Creatinine 0.98 MG/DL 1.07 MG/DL Random Glucose 126 MG/DL 151 MG/DL Total Protein 6.4 GM/DL 6.2 GM/DL Albumin 2.2 GM/DL 2.0 GM/DL Calcium Level 8.5 MG/DL 8.1 MG/DL Phosphorus Level 2.5 MG/DL 1.5 MG/DL Magnesium Level 2.2 MG/DL 2.3 MG/DL Alkaline Phosphatase 117 U/L 109 U/L Aspartate Amino Transf (AST/SGOT) 22 U/L 19 U/L Alanine Aminotransferase (ALT/SGPT) 13 U/L 12 U/L Total Bilirubin 0.6 MG/DL 0.3 MG/DL Sodium Level 144 MEQ/L 147 MEQ/L Potassium Level 4.5 MEQ/L 3.5 MEQ/L Chloride Level 109 MEQ/L 112 MEQ/L Carbon Dioxide Level 28.2 MEQ/L 29.3 MEQ/L Anion Gap 7 MEQ/L 6 MEQ/L Estimat Glomerular Filtration Rate 58 ML/MIN 53 ML/MIN Total Creatine Kinase 31 U/L Troponin I LESS THAN 0.02 NG/ML Lipase 37 U/L Human Chorionic Gonadotropin, Quant LESS THAN 1 MIU/ML Lactic Acid Level 1.2 mmol/L Microbiology Date/Time Source Procedure Growth Status 05/21/17 01:15 Blood Peripheral Aerobic Blood Culture - Preliminary Gram Negative Khalif Resulted 05/21/17 01:15 Anaerobic Blood Culture - Preliminary Gram Negative Khalif Resulted 05/21/17 01:15 Blood Peripheral Aerobic Blood Culture - Preliminary NO GROWTH IN 1 DAY Resulted 05/21/17 01:15 Blood Peripheral Anaerobic Blood Culture - Preliminary NO GROWTH IN 1 DAY Resulted 05/21/17 01:45 Nasal Washing Influenza Types A,B Antigen (JOHNNY) - Final NEGATIVE FOR FLU A AND B ANTIGEN.... Complete 05/21/17 01:40 Sputum Endotracheal Gram Stain - Final Resulted 05/21/17 01:40 Sputum Endotracheal Sputum Culture - Preliminary HEAVY GROWTH NORMAL RESPIRATORY CHANDLER... Resulted 05/21/17 01:40 Urine Catheterized Urine Legionella Antigen - Final PRESUMPTIVE NEGATIVE FOR LEGIONELLA P... Complete 05/21/17 01:40 Urine Catheterized Urine Streptococcus pneumoniae Antigen (M - Final PRESUMPTIVE NEGATIVE FOR STREPTOCOCCU... Complete 05/21/17 01:40 Urine Catheterized Urine Urine Culture - Final Escherichia Coli Complete Imaging Last Impressions Chest X-Ray 05/21/17 0103 Signed Impressions: Service Date/Time: May 01:26 - CONCLUSION: Satisfactory support line and tube positioning. Hussein Trejo MD Physical Exam GENERAL: Morbidly Obese patient, in no apparent distress. SKIN: No rashes, ecchymoses or lesions. Cool and dry. All skin folds examined with no evidence of infection. HEAD: Atraumatic. Normocephalic. No temporal or scalp tenderness. EYES: Pupils equal round and reactive. No scleral icterus. No injection or drainage. ENT: Intubated. NECK: Trachea midline. Supple, nontender, no meningeal signs. CARDIOVASCULAR: Heart sounds distant but audible. No murmur appreciated. RESPIRATORY: Anterior examination with no evidence of rhonchi. No adventitious sounds heard. Air entry decreased in the bases. GASTROINTESTINAL: Abdomen soft, non-tender, nondistended. MUSCULOSKELETAL: Extremities without clubbing, cyanosis. Pedal edema. NEUROLOGICAL: Sedated. Occasionally opens eyes when turned for examining her back. Psych could not be assessed IV line sites with no evidence of infection. Assessment & Plan Remarks Sepsis present on admission E.coli bacteremia E.coli UTI Aspiration PNA Acute metabolic encephalopathy likely secondary to CO2 narcosis as well as infection Acute COPD exacerbation Morbid obesity History of depression and other psychiatric disorders Diabetes with diabetic neuropathy Recommendation: Continue aztreonam IV(reported history of penicillin patient intubated details could not be obtained) DC vancomycin IV DC Azithro Follow cultures Follow clinically Discussed with RN No family at bedside Ani Sanchez MD May 22, 2017 12:19
[2017-05-22] MEDS: QUEtiapine FUMARATE 200 MG TAB PO SCH (20:22)
[2017-05-22] MEDS: AMITRIPTYLINE HCL 75 MG TAB PO SCH (20:29)
[2017-05-22] MEDS: fentaNYL DRIP 250 ML IV PRN (20:44)
[2017-05-23] VITALS (18 sets, daily range): BP systolic 110–133; BP diastolic 56–62; PULSE 77–103; RESP 18–27; TEMP 98.4–99.8; O2SAT 92–97
[2017-05-23] MEDS: CHLORHEXIDINE GLUCONATE 2 % 1 PACK (2 CLOTHS) TOP SCH (04:00)
[2017-05-23] MEDS: RESP: ALBUTEROL 2.5 MG/IPRATROPIUM 0.5 MG NEB (SCH) NEB ×4 (04:25→23:25)
[2017-05-23 05:41] LABS: AUTOMATED NEUTROPHIL # 4.5 TH/MM3 (1.8-7.7); BASOPHIL % 0.4 % (0.0-2.0); EOSINOPHIL # 0.2 TH/MM3 (0-0.4); EOSINOPHIL % 2.8 % (0.0-4.0); HEMATOCRIT 33.7 % (35.0-46.0); HEMOGLOBIN 10.4 GM/DL (11.6-15.3); LYMPH % 11.5 % (9.0-44.0); LYMPHOCYTE # 0.7 TH/MM3 (1.0-4.8); MEAN CELL VOLUME 88.2 FL (80.0-100.0); MEAN CORPUSCULAR HEMOGLOBIN 27.3 PG (27.0-34.0); MEAN CORPUSCULAR HGB CONC 30.9 % (32.0-36.0); MEAN PLATELET VOLUME 10.3 FL (7.0-11.0); MONO % 9.1 % (0.0-8.0); MONOCYTE # 0.5 TH/MM3 (0-0.9); NEUT % 76.2 % (16.0-70.0); PLATELET COUNT 140 TH/MM3 (150-450); RED BLOOD COUNT 3.82 MIL/MM3 (4.00-5.30); RED CELL DISTRIBUTION WIDTH 17.8 % (11.6-17.2); WHITE BLOOD COUNT 5.9 TH/MM3 (4.0-11.0)
[2017-05-23 06:06] LABS: BICARBONATE 27.8 MEQ/L (21.0-32.0); CALCIUM 8.5 MG/DL (8.5-10.1); CREATININE 0.91 MG/DL (0.50-1.00); MAGNESIUM 2.5 MG/DL (1.5-2.5)
[2017-05-23 06:07] LABS: PHOSPHORUS 1.8 MG/DL (2.5-4.9)
--- NOTE | 2017-05-23 06:30 | RADRPT ---
EXAM DATE/TIME: 05/23/2017 04:35 [facility] COMPARISON: CHEST SINGLE AP, May 21, 2017, 1:26. INDICATIONS : Shortness of breath, possible pulmonary disease. MEDICAL HISTORY : Chronic obstructive pulmonary disease. SURGICAL HISTORY : Gastric bypass. ENCOUNTER: Subsequent ACUITY: 3 days PAIN SCORE: Non-responsive. LOCATION: Bilateral chest FINDINGS: Single AP view of the chest. Endotracheal tube and nasogastric tube remain in place. Increase patchy consolidation versus atelectasis at left lung base. Cardiomediastinal silhouette unchanged. Possible small left pleural effusion. No evidence of pneumothorax. CONCLUSION: Increased patchy consolidation versus atelectasis at the left lung base. Pablo Powers MD on May 23, 2017 at 6:28 Board Certified Radiologist. This report was verified electronically.
[2017-05-23] MEDS: AZTREONAM INJ 2,000 MG in SODIUM CHLORIDE 0.9% INJ 100 ML IV SCH ×4 (06:31→23:48)
[2017-05-23] MEDS: AMITRIPTYLINE HCL 25 MG TAB PO SCH (06:37)
[2017-05-23] MEDS: FAMOTIDINE 20 MG TAB TUBE SCH ×2 (08:32→19:28)
[2017-05-23] MEDS: busPIRone HCL 10 MG TAB PO SCH (08:32)
[2017-05-23] MEDS: QUEtiapine FUMARATE 100 MG TAB PO SCH (08:32)
[2017-05-23] MEDS: ASPIRIN 81 MG CHEW TAB CHEW SCH (08:32)
[2017-05-23] MEDS: CHLORHEXIDINE 0.12% (ORAL KIT) 15 ML CUP MT SCH ×2 (08:33→19:29)
[2017-05-23] MEDS: BUDESONIDE-FORMOTEROL 80/4.5 MCG INHALER INH SCH ×2 (08:35→19:20)
[2017-05-23] MEDS: SODIUM CHLORIDE 0.9% FLUSH 10 ML FLUSH IV FLUSH SCH ×2 (08:35→19:28)
--- NOTE | 2017-05-23 10:30 | HHI.IDPN ---
Subjective Subjective Remarks Ms. Jason Renee is a 57-year-old female with past medical history significant for morbid obesity, sleep apnea, COPD who has been admitted multiple times to the hospital for presented to the ER over the last several years. She has had one intubation 2016 and yet another in 2017 that I could identify from past medical records. Patient also has a history of MRSA in the sputum as well as ESBL Escherichia coli in the urine in the past. Patient is a resident of [facility] and [facility] and was admitted from the emergency room from the halfway for altered mental status. Upon arrival her PCO2 was elevated at 79 and a pH was 7.19. Patient is intubated and placed on mechanical ventilation by the ER physician. It appears based on review of halfway records that she was evaluated for possible UTI and pneumonia. Chest x-ray done on May 19, 2017 showed a mild left lower lobe infiltrate. UA was abnormal and patient was started on oral Levaquin and prednisone for possible acute COPD exacerbation. Given her multiple admissions at risk for infections patient had a sepsis workup and blood cultures, sputum cultures and urine with reflex to urine culture. Her urine was found to be cloudy and cultures are pending at the present time. Infectious disease is consulted for evaluation and management of pneumonia and UTI in and cephalic with the patient multiple admissions to the hospital in the recent past. At the time of my evaluation patient is in the ICU currently intubated, on a ventilator and sedated. She is currently not on any vasopressors. Her urine output is fairly okay. She has not diarrhea. She has small amount of white to yellow secretions. Upon examination of her skin folds there was no evidence of any infection. Overnight events reviewed No fevers No rash No diarrhea Not on pressors. UO good. Secretions minimal. remains on vent. 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 Reported history of gastric bypass this remains to be confirmed. Allergies: Coded Allergies: penicillin G (Unverified Allergy, Unknown, 05/21/17) Objective . Vital Signs Date Time Temp Pulse Resp B/P (MAP) Pulse Ox O2 Delivery O2 Flow Rate FiO2 05/23/17 09:18 97 40 05/23/17 09:17 40 05/23/17 08:00 40 05/23/17 08:00 90 05/23/17 08:00 99.0 90 19 133/62 (85) 95 05/23/17 06:00 85 05/23/17 04:25 96 40 05/23/17 04:00 99.8 85 20 126/57 (80) 96 05/23/17 04:00 40 05/23/17 04:00 85 05/23/17 02:00 80 05/23/17 01:03 96 40 05/23/17 00:00 98.4 77 18 110/59 (76) 96 05/23/17 00:00 77 05/23/17 00:00 40 05/22/17 22:00 77 05/22/17 21:35 97 40 05/22/17 20:00 98.5 77 18 126/60 (82) 97 05/22/17 20:00 77 05/22/17 20:00 40 05/22/17 18:00 74 05/22/17 16:27 82 05/22/17 16:25 100.0 84 22 127/59 (81) 98 05/22/17 15:48 95 40 05/22/17 14:00 103 05/22/17 12:00 50 05/22/17 12:00 100.2 75 18 115/57 (76) 96 05/22/17 12:00 103 05/22/17 11:28 40 05/22/17 11:28 97 40 . Laboratory Tests Test 05/22/17 04:20 05/23/17 04:16 White Blood Count 7.4 TH/MM3 5.9 TH/MM3 Red Blood Count 3.98 MIL/MM3 3.82 MIL/MM3 Hemoglobin 10.9 GM/DL 10.4 GM/DL Hematocrit 35.5 % 33.7 % Mean Corpuscular Volume 89.2 FL 88.2 FL Mean Corpuscular Hemoglobin 27.3 PG 27.3 PG Mean Corpuscular Hemoglobin Concent 30.6 % 30.9 % Red Cell Distribution Width 17.5 % 17.8 % Platelet Count 124 TH/MM3 140 TH/MM3 Mean Platelet Volume 10.5 FL 10.3 FL Neutrophils (%) (Auto) 84.0 % 76.2 % Lymphocytes (%) (Auto) 8.1 % 11.5 % Monocytes (%) (Auto) 7.2 % 9.1 % Eosinophils (%) (Auto) 0.4 % 2.8 % Basophils (%) (Auto) 0.3 % 0.4 % Neutrophils # (Auto) 6.2 TH/MM3 4.5 TH/MM3 Lymphocytes # (Auto) 0.6 TH/MM3 0.7 TH/MM3 Monocytes # (Auto) 0.5 TH/MM3 0.5 TH/MM3 Eosinophils # (Auto) 0.0 TH/MM3 0.2 TH/MM3 Basophils # (Auto) 0.0 TH/MM3 0.0 TH/MM3 CBC Comment DIFF FINAL DIFF FINAL Differential Comment Laboratory Tests Test 05/22/17 04:20 05/23/17 04:16 Blood Urea Nitrogen 22 MG/DL 24 MG/DL Creatinine 1.07 MG/DL 0.91 MG/DL Random Glucose 151 MG/DL 150 MG/DL Total Protein 6.2 GM/DL Albumin 2.0 GM/DL Calcium Level 8.1 MG/DL 8.5 MG/DL Phosphorus Level 1.5 MG/DL 1.8 MG/DL Magnesium Level 2.3 MG/DL 2.5 MG/DL Alkaline Phosphatase 109 U/L Aspartate Amino Transf (AST/SGOT) 19 U/L Alanine Aminotransferase (ALT/SGPT) 12 U/L Total Bilirubin 0.3 MG/DL Sodium Level 147 MEQ/L 150 MEQ/L Potassium Level 3.5 MEQ/L 3.5 MEQ/L Chloride Level 112 MEQ/L 117 MEQ/L Carbon Dioxide Level 29.3 MEQ/L 27.8 MEQ/L Anion Gap 6 MEQ/L 5 MEQ/L Estimat Glomerular Filtration Rate 53 ML/MIN 63 ML/MIN Microbiology Date/Time Source Procedure Growth Status 05/22/17 15:12 Blood Peripheral Aerobic Blood Culture Pending Resulted 05/22/17 15:12 Blood Peripheral Anaerobic Blood Culture - Final QNS - SEE AEROBE REPORT Resulted 05/22/17 15:00 Blood Peripheral Aerobic Blood Culture Pending Received 05/22/17 15:00 Blood Peripheral Anaerobic Blood Culture Pending Received 05/21/17 01:15 Blood Peripheral Aerobic Blood Culture - Final Escherichia Coli Complete 05/21/17 01:15 Anaerobic Blood Culture - Final Escherichia Coli Complete 05/21/17 01:15 Blood Peripheral Aerobic Blood Culture - Preliminary NO GROWTH IN 1 DAY Resulted 05/21/17 01:15 Blood Peripheral Anaerobic Blood Culture - Preliminary NO GROWTH IN 1 DAY Resulted 05/21/17 01:45 Nasal Washing Influenza Types A,B Antigen (JOHNNY) - Final NEGATIVE FOR FLU A AND B ANTIGEN.... Complete 05/21/17 01:40 Sputum Endotracheal Gram Stain - Final Resulted 05/21/17 01:40 Sputum Endotracheal Sputum Culture - Preliminary HEAVY GROWTH NORMAL RESPIRATORY CHANDLER... Resulted 05/21/17 01:40 Urine Catheterized Urine Legionella Antigen - Final PRESUMPTIVE NEGATIVE FOR LEGIONELLA P... Complete 05/21/17 01:40 Urine Catheterized Urine Streptococcus pneumoniae Antigen (M - Final PRESUMPTIVE NEGATIVE FOR STREPTOCOCCU... Complete 05/21/17 01:40 Urine Catheterized Urine Urine Culture - Final Escherichia Coli Complete Imaging Last Impressions Chest X-Ray 05/21/17 0103 Signed Impressions: Service Date/Time: May 01:26 - CONCLUSION: Satisfactory support line and tube positioning. Hussein Trejo MD Physical Exam GENERAL: Morbidly Obese patient, in no apparent distress. SKIN: No rashes, ecchymoses or lesions. Cool and dry. All skin folds examined with no evidence of infection. HEAD: Atraumatic. Normocephalic. No temporal or scalp tenderness. EYES: Pupils equal round and reactive. No scleral icterus. No injection or drainage. ENT: Intubated. NECK: Trachea midline. Supple, nontender, no meningeal signs. CARDIOVASCULAR: Heart sounds distant but audible. No murmur appreciated. RESPIRATORY: Anterior examination with no evidence of rhonchi. No adventitious sounds heard. Air entry decreased in the bases. GASTROINTESTINAL: Abdomen soft, non-tender, nondistended. MUSCULOSKELETAL: Extremities without clubbing, cyanosis. Pedal edema. NEUROLOGICAL: Sedated. Opens eyes when examining her. Psych could not be assessed IV line sites with no evidence of infection. Assessment & Plan Remarks Sepsis present on admission E.coli bacteremia E.coli UTI Aspiration PNA Acute metabolic encephalopathy likely secondary to CO2 narcosis as well as infection Acute COPD exacerbation Morbid obesity History of depression and other psychiatric disorders Diabetes with diabetic neuropathy Recommendation: Continue aztreonam IV(reported history of penicillin patient intubated details could not be obtained) Follow cultures Follow clinically Discussed with RN No family at bedside Ani Sanchez MD May 23, 2017 10:30
--- NOTE | 2017-05-23 10:53 | RADRPT ---
EXAM DATE/TIME: 05/23/2017 09:18 [facility] COMPARISON: CT ABDOMEN & PELVIS W CONTRAST, February 28, 2016, 14:07. INDICATIONS : Hydronephrosis. MEDICAL HISTORY : Chronic obstructive pulmonary disease. Hypertension. Methicillin-resistant Staphylococcus aureus. Mor bid obesity. Sleep apnea. Diabetes. Anemia. Anxiety. Esophagitis. Depression. Back problems. SURGICAL HISTORY : Colostomy. ENCOUNTER: Initial ACUITY: 1 day PAIN SCORE: Nonresponsive. LOCATION: Bilateral flank MEASUREMENTS: RIGHT KIDNEY: 11.8 x 7.4 x 4.8 cm LEFT KIDNEY: 14.5 x 6.7 x 9.3 cm FINDINGS: RIGHT KIDNEY: Renal cortex is normal in thickness and echotexture. No hydronephrosis, stone, or mass. LEFT KIDNEY: Renal cortex is normal in thickness and echotexture. No hydronephrosis, stone, or mass. BLADDER: The bladder is decompressed. CONCLUSION: No evidence of hydronephrosis.. Ivania Ya MD on May 23, 2017 at 10:49 Board Certified Radiologist. This report was verified electronically.
[2017-05-23] MEDS ORDERED: ICU - POTASSIUM PHOSPHATE 30 MMOL/NS 250 ML IV ONE ×2 (14:00)
[2017-05-23] MEDS: QUEtiapine FUMARATE 200 MG TAB PO SCH (19:28)
[2017-05-23] MEDS: AMITRIPTYLINE HCL 75 MG TAB PO SCH (19:28)
--- NOTE | 2017-05-23 20:31 | HHI.CCPN ---
Subjective Remarks/Hospital Course 57-year-old female with a medical history significant for morbid obesity, COPD, sleep apnea, diabetes mellitus who was brought to the ER from care home with altered mental status, fevers and was noted to have an elevated PCO2 on ABG PCO2 79 pH 7.19. Patient was intubated and placed on mechanical ventilation by ER physician. After obtaining blood cultures empiric antibiotics were ordered. Patient was accepted for admission by critical care medicine service. When I evaluated the patient she was sedated with Versed, orally intubated on mechanical ventilation. History was obtained by reviewing records and discussion with Dr. Redman. Subjective : 05/22: T-max 101.3. Urine culture revealed gram-negative rods. Patient remains lightly sedated but following commands. Tolerating tube feeds. CPAP trials to be initiated today. 05/23: Afebrile. Urine and blood culture revealed E. coli. Patient on 100 mics of fentanyl for ventilator synchrony. Patient initiated on CPAP trials and continues greater than 8 hours. Plan for continue CPAP trials to out the night with possible SBT parameters in the a.m.. Objective Vital Signs Date Time Temp Pulse Resp B/P (MAP) Pulse Ox O2 Delivery O2 Flow Rate FiO2 05/23/17 20:00 99.6 95 27 120/56 (77) 96 05/23/17 17:01 40 05/21/17 01:25 Ventilator Intake and Output 05/23/17 05/23/17 05/24/17 08:00 16:00 00:00 Intake Total 820.6 ml 1441 ml Output Total 650 ml 1000 ml Balance 170.6 ml 441 ml Result Diagram: 05/23/17 0416 05/23/17 0416 Other Results Microbiology Date/Time Source Procedure Growth Status 05/21/17 01:15 Blood Peripheral Aerobic Blood Culture - Final Escherichia Coli Complete 05/21/17 01:15 Anaerobic Blood Culture - Final Escherichia Coli Complete 05/21/17 01:45 Nasal Washing Influenza Types A,B Antigen (JOHNNY) - Final NEGATIVE FOR FLU A AND B ANTIGEN.... Complete 05/21/17 01:40 Urine Catheterized Urine Legionella Antigen - Final PRESUMPTIVE NEGATIVE FOR LEGIONELLA P... Complete 05/21/17 01:40 Urine Catheterized Urine Streptococcus pneumoniae Antigen (M - Final PRESUMPTIVE NEGATIVE FOR STREPTOCOCCU... Complete 05/21/17 01:40 Urine Catheterized Urine Urine Culture - Final Escherichia Coli Complete Imaging Last Impressions Chest X-Ray 05/23/17 0600 Signed Impressions: Service Date/Time: Tuesday, May 23, 2017 04:35 - CONCLUSION: Increased patchy consolidation versus atelectasis at the left lung base. Pablo Powesr MD Renal Ultrasound 05/23/17 0000 Signed Impressions: Service Date/Time: Tuesday, May 23, 2017 09:18 - CONCLUSION: No evidence of hydronephrosis.. Ivania Ya MD Last Impressions Chest X-Ray 05/21/17102 Signed Impressions: Service Date/Time: May 01:26 - CONCLUSION: Satisfactory support line and tube positioning. Hussein Trejo MD Last Impressions Chest X-Ray 05/21/17102 Signed Impressions: Service Date/Time: May 01:26 - CONCLUSION: Satisfactory support line and tube positioning. Hussein Trejo MD Objective Remarks HEENT/ Neuro: Lightly sedated, orally intubated, Pallor present, no icterus, tongue/ mucosa moist. GCS 11 T, following commands Neck: No JVD Chest/Pulm: on mech vent, good air entry bilaterally, no wheezing or crackles. Clear to auscultation bilaterally CVS: S1-S2 regular, no murmur GI/abdomen: soft, nontender, bowel sounds sluggish. Morbidly obese. Prior healed surgical scars noted Extremities: warm bilaterally, bilateral trace edema A/P Assessment and Plan 57-year-old female with: Sepsis Encephalopathy Acute respiratory failure on mechanical ventilation UTI Possible pneumonia Morbid obesity COPD Schizophrenia Plan: Neuro: Sedation with Versed/propofol and fentanyl when necessary as needed. Daily sedation vacation. Follow neuro status. 05/21 resumed psych meds-to include amitriptyline, Serquel and Buspar. Gabapentin and Lyrica remain on hold Cardiovascular: Telemetry sinus rhythm Maintain MAP greater than 65 mmHg Pulmonary: Continue mechanical ventilation, vent bundle, bronchodilators as needed. Daily C Pap trials as tolerated. GI/liver: Tube feeds at goal-minimal residual Bowel regimen Renal/: IV KVO strict intake output monitor and replete electrolytes, follow BUN/creatinine Patient receiving 30 mmol of sodium phosphate ID: follow up pancultures. Urine for strep pneumo and Legionella antigen-negative Nasal washings for influenza A and B-negative Urine culture-E. coli Blood culture-E. coli ID consult following Heme: Follow CBC Transfused hemoglobin less than 7 Endocrine: SSI for glycemic control if needed. Prophylaxis Pepcid/SCDs/Lovenox Level 3 followup. Discussed with DECKHAND OYSTER DREDGE at this Physician Suzanne Mcdonald MD May 23, 2017 20:31
[2017-05-24] VITALS (14 sets, daily range): BP systolic 131–156; BP diastolic 62–94; PULSE 87–106; RESP 18–30; TEMP 98.8–100.6; O2SAT 92–96
[2017-05-24 01:10] LABS: BICARBONATE 28.1 MEQ/L (21.0-32.0); CALCIUM 8.6 MG/DL (8.5-10.1); CREATININE 0.74 MG/DL (0.50-1.00); MAGNESIUM 2.4 MG/DL (1.5-2.5); PHOSPHORUS 2.7 MG/DL (2.5-4.9)
[2017-05-24] MEDS: fentaNYL DRIP 250 ML IV PRN ×2 (02:16→20:32)
[2017-05-24] MEDS: RESP: ALBUTEROL 2.5 MG/IPRATROPIUM 0.5 MG NEB (SCH) NEB ×4 (03:37→21:05)
[2017-05-24] MEDS: CHLORHEXIDINE GLUCONATE 2 % 1 PACK (2 CLOTHS) TOP SCH (04:00)
--- NOTE | 2017-05-24 04:41 | RADRPT ---
EXAM DATE/TIME: 05/24/2017 03:45 [facility] COMPARISON: CHEST SINGLE AP, May 23, 2017, 4:35. INDICATIONS : Shortness of breath, possible pulmonary disease. MEDICAL HISTORY : Chronic obstructive pulmonary disease. SURGICAL HISTORY : Gastric bypass. ENCOUNTER: Subsequent ACUITY: 4 - 6 days PAIN SCORE: Non-responsive. LOCATION: Bilateral chest FINDINGS: Single AP view of the chest. Endotracheal tube and nasogastric tube remain in place. Persistent confl uent consolidation versus atelectasis of the left lung base. Patchy left midlung consolidation versus atelectasis and right perihilar opacity similar to the prior study. Cardiac silhouette enlarged but unchanged. No evidence of pneumothorax. CONCLUSION: No significant neural change with mid to lower left lung consolidation versus atelectasis and mild pa tchy right perihilar pulmonary parenchymal opacity. Pablo Powers MD on May 24, 2017 at 4:38 Board Certified Radiologist. This report was verified electronically.
[2017-05-24] MEDS ORDERED: PHARMACY ORDERED LAB ONE (05:45)
[2017-05-24 06:01] LABS: HEMATOCRIT 34.4 % (35.0-46.0); HEMOGLOBIN 10.4 GM/DL (11.6-15.3); MEAN CELL VOLUME 89.1 FL (80.0-100.0); MEAN CORPUSCULAR HEMOGLOBIN 26.9 PG (27.0-34.0); MEAN CORPUSCULAR HGB CONC 30.2 % (32.0-36.0); MEAN PLATELET VOLUME 10.4 FL (7.0-11.0); PLATELET COUNT 147 TH/MM3 (150-450); RED BLOOD COUNT 3.85 MIL/MM3 (4.00-5.30); RED CELL DISTRIBUTION WIDTH 18.3 % (11.6-17.2); WHITE BLOOD COUNT 5.6 TH/MM3 (4.0-11.0)
[2017-05-24] MEDS: AZTREONAM INJ 2,000 MG in SODIUM CHLORIDE 0.9% INJ 100 ML IV SCH ×4 (06:31→23:52)
[2017-05-24] MEDS: AMITRIPTYLINE HCL 25 MG TAB PO SCH (06:31)
[2017-05-24] MEDS: FAMOTIDINE 20 MG TAB TUBE SCH ×2 (08:02→20:31)
[2017-05-24] MEDS: QUEtiapine FUMARATE 100 MG TAB PO SCH (08:02)
[2017-05-24] MEDS: busPIRone HCL 10 MG TAB PO SCH (08:02)
[2017-05-24] MEDS: ASPIRIN 81 MG CHEW TAB CHEW SCH (08:02)
[2017-05-24] MEDS: CHLORHEXIDINE 0.12% (ORAL KIT) 15 ML CUP MT SCH ×2 (08:12→20:00)
[2017-05-24] MEDS: BUDESONIDE-FORMOTEROL 80/4.5 MCG INHALER INH SCH ×2 (08:34→20:30)
[2017-05-24] MEDS: SODIUM CHLORIDE 0.9% FLUSH 10 ML FLUSH IV FLUSH SCH ×2 (08:34→20:33)
--- NOTE | 2017-05-24 10:20 | HHI.IDPN ---
Subjective Subjective Remarks Patient seen and examined with Dr. Sanchez Ms. Jason Renee is a 57-year-old female with past medical history significant for morbid obesity, sleep apnea, COPD who has been admitted multiple times to the hospital for presented to the ER over the last several years. She has had one intubation 2015 and yet another in 2017 that I could identify from past medical records. Patient also has a history of MRSA in the sputum as well as ESBL Escherichia coli in the urine in the past. Patient is a resident of [facility] and [facility] and was admitted from the emergency room from the long term for altered mental status. Upon arrival her PCO2 was elevated at 79 and a pH was 7.19. Patient is intubated and placed on mechanical ventilation by the ER physician. It appears based on review of long term records that she was evaluated for possible UTI and pneumonia. Chest x-ray done on May 19, 2017 showed a mild left lower lobe infiltrate. UA was abnormal and patient was started on oral Levaquin and prednisone for possible acute COPD exacerbation. Given her multiple admissions at risk for infections patient had a sepsis workup and blood cultures, sputum cultures and urine with reflex to urine culture. Her urine was found to be cloudy and cultures are pending at the present time. Infectious disease is consulted for evaluation and management of pneumonia and UTI in and cephalic with the patient multiple admissions to the hospital in the recent past. At the time of my evaluation patient is in the ICU currently intubated, on a ventilator and sedated. She is currently not on any vasopressors. Her urine output is fairly okay. She has not diarrhea. She has small amount of white to yellow secretions. Upon examination of her skin folds there was no evidence of any infection. Overnight events reviewed Discussed with nursing staff Tmax 100.6 sputum cx positive for MRSA No rash No diarrhea Not on pressors. UO good - 3000ml in last 24 hrs Secretions minimal. 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 Reported history of gastric bypass this remains to be confirmed. (Angelica Craft) Allergies: Coded Allergies: penicillin G (Unverified Allergy, Unknown, 05/21/17) Objective . Vital Signs Date Time Temp Pulse Resp B/P (MAP) Pulse Ox O2 Delivery O2 Flow Rate FiO2 05/24/17 08:09 92 50 05/24/17 08:09 50 05/24/17 08:00 106 05/24/17 08:00 100.6 87 18 133/62 (85) 96 05/24/17 08:00 50 05/24/17 06:00 93 05/24/17 04:00 97 05/24/17 04:00 100.2 97 25 148/66 (93) 93 05/24/17 04:00 50 05/24/17 03:37 94 40 05/24/17 02:00 87 05/24/17 00:00 40 05/24/17 00:00 100 05/24/17 00:00 98.8 100 28 140/63 (88) 92 05/23/17 23:22 96 40 05/23/17 22:00 90 05/23/17 20:00 99.6 95 27 120/56 (77) 96 05/23/17 20:00 40 05/23/17 20:00 95 05/23/17 18:00 103 05/23/17 17:01 97 40 05/23/17 16:00 99.5 94 26 126/59 (81) 95 05/23/17 16:00 40 05/23/17 16:00 94 05/23/17 14:00 101 05/23/17 12:00 98 05/23/17 12:00 40 05/23/17 12:00 99.3 98 24 119/59 (79) 95 05/23/17 11:50 40 05/23/17 11:43 92 40 . Laboratory Tests Test 05/23/17 04:16 05/24/17 03:35 White Blood Count 5.9 TH/MM3 5.6 TH/MM3 Red Blood Count 3.82 MIL/MM3 3.85 MIL/MM3 Hemoglobin 10.4 GM/DL 10.4 GM/DL Hematocrit 33.7 % 34.4 % Mean Corpuscular Volume 88.2 FL 89.1 FL Mean Corpuscular Hemoglobin 27.3 PG 26.9 PG Mean Corpuscular Hemoglobin Concent 30.9 % 30.2 % Red Cell Distribution Width 17.8 % 18.3 % Platelet Count 140 TH/MM3 147 TH/MM3 Mean Platelet Volume 10.3 FL 10.4 FL Neutrophils (%) (Auto) 76.2 % Lymphocytes (%) (Auto) 11.5 % Monocytes (%) (Auto) 9.1 % Eosinophils (%) (Auto) 2.8 % Basophils (%) (Auto) 0.4 % Neutrophils # (Auto) 4.5 TH/MM3 Lymphocytes # (Auto) 0.7 TH/MM3 Monocytes # (Auto) 0.5 TH/MM3 Eosinophils # (Auto) 0.2 TH/MM3 Basophils # (Auto) 0.0 TH/MM3 CBC Comment DIFF FINAL Differential Comment Laboratory Tests Test 05/23/17 04:16 05/24/17 00:39 05/24/17 03:35 Blood Urea Nitrogen 24 MG/DL 20 MG/DL Creatinine 0.91 MG/DL 0.74 MG/DL Random Glucose 150 MG/DL 159 MG/DL Calcium Level 8.5 MG/DL 8.6 MG/DL Phosphorus Level 1.8 MG/DL 2.7 MG/DL 2.3 MG/DL Magnesium Level 2.5 MG/DL 2.4 MG/DL Sodium Level 150 MEQ/L 153 MEQ/L Potassium Level 3.5 MEQ/L 4.0 MEQ/L Chloride Level 117 MEQ/L 119 MEQ/L Carbon Dioxide Level 27.8 MEQ/L 28.1 MEQ/L Anion Gap 5 MEQ/L 6 MEQ/L Estimat Glomerular Filtration Rate 63 ML/MIN 81 ML/MIN Microbiology Date/Time Source Procedure Growth Status 05/22/17 15:12 Blood Peripheral Aerobic Blood Culture - Preliminary NO GROWTH IN 1 DAY Resulted 05/22/17 15:12 Blood Peripheral Anaerobic Blood Culture - Final QNS - SEE AEROBE REPORT Resulted 05/22/17 15:00 Blood Peripheral Aerobic Blood Culture - Preliminary NO GROWTH IN 1 DAY Resulted 05/22/17 15:00 Blood Peripheral Anaerobic Blood Culture - Preliminary NO GROWTH IN 1 DAY Resulted Imaging Last Impressions Chest X-Ray 05/21/17 0103 Signed Impressions: Service Date/Time: May 01:26 - CONCLUSION: Satisfactory support line and tube positioning. Hussein Trejo MD Physical Exam GENERAL: Morbidly Obese patient, in no apparent distress. Awake. SKIN: No rashes, ecchymoses or lesions. Cool and dry. 4/7 All skin folds examined with no evidence of infection. HEAD: Atraumatic. Normocephalic. No temporal or scalp tenderness. EYES: Pupils equal round and reactive. No scleral icterus. No injection or drainage. ENT: Intubated. NECK: Trachea midline. Supple, nontender, no meningeal signs. CARDIOVASCULAR: Heart sounds distant but audible. No murmur appreciated. RESPIRATORY: Anterior examination with air entry decreased in the bases, coarse breath sounds noted. GASTROINTESTINAL: Abdomen soft, nondistended. Tenderness to palpation elicited to palpation of lower abdomen and suprapubic area. Colostomy LLQ, pink stoma, soft brown stool in bag. GENITOURINARY: Collier catheter in place with yellow urine in bag. MUSCULOSKELETAL: Extremities without clubbing, cyanosis. Pedal edema. NEUROLOGICAL: Sedated. Opens eyes when examining her. Psych could not be assessed IV line sites with no evidence of infection. (Angelica Craft) Assessment & Plan Remarks Sepsis present on admission E.coli bacteremia E.coli UTI Aspiration/MRSA PNA Acute metabolic encephalopathy likely secondary to CO2 narcosis as well as infection Acute COPD exacerbation Morbid obesity History of depression and other psychiatric disorders Diabetes with diabetic neuropathy Recommendation: Continue aztreonam IV(reported history of penicillin patient intubated details could not be obtained) Start Zyvox po for MRSA PNA BCX no growth x 1 day, continue to follow Lower abdominal pain, discussed with nursing staff, will flush collier to check for patency. Consider CT abd/pelvis. Follow clinically Discussed with RN No family at bedside (Angelica Craft) Remarks The exam, history, and the medical decision-making described in the above note were completed with the assistance of the mid-level provider. I reviewed and agree with the findings presented. I attest that I had a [id number] encounter with the patient on the same day, and personally performed and documented my assessment and findings in the medical record. Dw RN about CPAP trials. Secretions moderate white to yellow. CX with MRSA just reported. Lower abdominal tenderness on exam RN flushed collier to assess for blockage. Asked RN to monitor urine output if low consider Bladder scan and report output to CCM . If persistent fevers and abdominal pain will consider CT C/A/P to assess pneumonia, PE, kidneys. E coli UTI E.coli bacteremia. UTI present on admission. History of ESBL in the past. Multiple hospitalizations in the past. MRSA pneumonia Recs Continue Azactam IV Start Zyvox oral Follow platelets Follow clinically. (Ani Sanchez MD) Angelica Craft May 24, 2017 10:20 Ani Sanchez MD May 24, 2017 10:51
[2017-05-24] MEDS: LINEZOLID 600 MG TAB PO SCH ×2 (11:06→20:31)
--- NOTE | 2017-05-24 12:17 | HHI.CCPN ---
Subjective Remarks/Hospital Course 57-year-old female with a medical history significant for morbid obesity, COPD, sleep apnea, diabetes mellitus who was brought [facility] the ER from [facility] with altered mental status, fevers and was noted to have an elevated PCO2 on ABG PCO2 79 pH 7.19. Patient was intubated and placed on mechanical ventilation by ER physician. After obtaining blood cultures empiric antibiotics were ordered. Patient was accepted for admission by critical care medicine service. When I evaluated the patient she was sedated with Versed, orally intubated on mechanical ventilation. History was obtained by reviewing records and discussion with Dr. Redman. Subjective : 05/22: T-max 101.3. Urine culture revealed gram-negative rods. Patient remains lightly sedated but following commands. Tolerating tube feeds. CPAP trials to be initiated today. 05/23: Afebrile. Urine and blood culture revealed E. coli. Patient on 100 mics of fentanyl for ventilator synchrony. Patient initiated on CPAP trials and continues greater than 8 hours. Plan for continue CPAP trials to out the night with possible SBT parameters in the a.m.. 05/24: Patient wakes up easily. CPAP trial was attempted but failed today due to tachypnea. Continues to have bilateral upper lung wheezing. IV Solu-Medrol started today, inhaled budesonide also started. Chest x-ray shows bilateral mild patchy infiltrates, sputum growing MRSA. Continue scheduled breathing treatments and antibiotics with Zyvox, Azactam Objective Vital Signs Date Time Temp Pulse Resp B/P (MAP) Pulse Ox O2 Delivery O2 Flow Rate FiO2 05/24/17 10:00 98 05/24/17 08:09 92 50 05/24/17 08:00 100.6 18 133/62 (85) 05/21/17 01:25 Ventilator Intake and Output 05/24/17 05/24/17 05/25/17 08:00 16:00 00:00 Intake Total 1240 ml Output Total 1351 ml Balance -111 ml Result Diagram: 05/24/17 0335 05/24/17 0039 Other Results Laboratory Tests Test 05/24/17 05:21 Blood Gas Puncture Site RT RADIAL Blood Gas Patient Temperature 98.6 Blood Gas HCO3 29 mmol/L (22-26) Blood Gas Base Excess 3.9 mmol/L (-2-2) Blood Gas Oxygen Saturation 89 % (90-100) Arterial Blood pH 7.37 (7.380-7.420) Arterial Blood Partial Pressure CO2 51 mmHg (38-42) Arterial Blood Partial Pressure O2 59 mmHg (61-120) Arterial Blood Oxygen Content 13.3 Vol % (12.0-20.0) Arterial Blood Carboxyhemoglobin 0.9 % (0-4) Arterial Blood Methemoglobin 1.0 % (0-2) Blood Gas Hemoglobin 10.6 G/DL (12.0-16.0) Oxygen Delivery Device VENT Blood Gas Ventilator Setting SEE COMMENTS Blood Gas Inspired Oxygen 40 % Imaging Last Impressions Chest X-Ray 05/23/17 0600 Signed Impressions: Service Date/Time: Tuesday, May 23, 2017 04:35 - CONCLUSION: Increased patchy consolidation versus atelectasis at the left lung base. Pablo Powers MD Renal Ultrasound 05/23/17 0000 Signed Impressions: Service Date/Time: Tuesday, May 23, 2017 09:18 - CONCLUSION: No evidence of hydronephrosis.. Ivania Ya MD Last Impressions Chest X-Ray 05/21/17102 Signed Impressions: Service Date/Time: May 01:26 - CONCLUSION: Satisfactory support line and tube positioning. Hussein Trejo MD Last Impressions Chest X-Ray 05/21/17102 Signed Impressions: Service Date/Time: May 01:26 - CONCLUSION: Satisfactory support line and tube positioning. Hussein Trejo MD Objective Remarks HEENT/ Neuro: Lightly sedated, orally intubated, Pallor present, no icterus, tongue/ mucosa moist. GCS 11 T, following commands Neck: No JVD Chest/Pulm: on mech vent, bilateral upper lung gaston wheezing, air entry diminished in the left lung field. CVS: S1-S2 regular, no murmur. Heart sounds are distant GI/abdomen: soft, nontender, bowel sounds sluggish. Morbidly obese. Prior healed surgical scars noted Extremities: warm bilaterally, bilateral trace edema A/P Assessment and Plan 57-year-old female with: Sepsis Encephalopathy Acute respiratory failure on mechanical ventilation Acute COPD exacerbation UTI MRSA pneumonia Morbid obesity COPD Schizophrenia Plan: Neuro: Sedation with Versed/propofol and fentanyl when necessary as needed. Daily sedation vacation. Follow neuro status. 05/21 resumed psych meds-to include amitriptyline, Serquel and Buspar. Gabapentin and Lyrica remain on hold Cardiovascular: Telemetry sinus rhythm Maintain MAP greater than 65 mmHg Pulmonary: Continue mechanical ventilation, vent bundle, bronchodilators as needed. Continues to fail CPAP trials due to tachypnea and wheezing Start IV Solu-Medrol 60 mg every 8 hours DuoNeb every 6 6 hours scheduled and as needed Start budesonide inhaled twice daily GI/liver: Tube feeds at goal-minimal residual Bowel regimen Renal/: IV KVO strict intake output monitor and replete electrolytes, follow BUN/creatinine Patient receiving 30 mmol of sodium phosphate ID: follow up pancultures. Urine for strep pneumo and Legionella antigen-negative Nasal washings for influenza A and B-negative Urine culture-E. coli Blood culture-E. coli Sputum - MRSA ID following-continue Zyvox and Azactam Heme: Follow CBC Transfused hemoglobin less than 7 Endocrine: SSI for glycemic control if needed. Prophylaxis Pepcid/SCDs/Lovenox CCT 30 min Patient is more acutely ill failing CPAP trials. Today with severe bilateral upper lung wheezing indicating acute COPD exacerbation. Start IV Solu-Medrol, resume scheduled breathing treatments, not tolerating vent wean. Patient is at risk of acute decompensation from severe COPD exacerbation Oscar Savage MD May 24, 2017 12:17
[2017-05-24] MEDS: methylPREDNISolone SOD SUCC 125 MG/2 ML VIAL IV PUSH SCH ×2 (13:26→20:31)
[2017-05-24] MEDS: PROPOFOL 1000 MG/100 ML INJ 100 ML IV PRN ×2 (17:12→23:52)
[2017-05-24] MEDS: QUEtiapine FUMARATE 200 MG TAB PO SCH (20:31)
[2017-05-24] MEDS: AMITRIPTYLINE HCL 75 MG TAB PO SCH (20:31)
[2017-05-24] MEDS: RESP: BUDESONIDE 0.5 MG/2 ML NEB NEB SCH (21:05)
[2017-05-25] VITALS (15 sets, daily range): BP systolic 98–193; BP diastolic 54–88; PULSE 65–96; RESP 18–26; TEMP 98.3; O2SAT 93–97
[2017-05-25] MEDS: CHLORHEXIDINE GLUCONATE 2 % 1 PACK (2 CLOTHS) TOP SCH (04:00)
[2017-05-25] MEDS: methylPREDNISolone SOD SUCC 125 MG/2 ML VIAL IV PUSH SCH ×3 (04:42→20:49)
[2017-05-25] MEDS: AZTREONAM INJ 2,000 MG in SODIUM CHLORIDE 0.9% INJ 100 ML IV SCH (04:42)
[2017-05-25] MEDS: RESP: ALBUTEROL 2.5 MG/IPRATROPIUM 0.5 MG NEB (SCH) NEB ×4 (05:25→20:53)
[2017-05-25] MEDS: PROPOFOL 1000 MG/100 ML INJ 100 ML IV PRN ×2 (05:48→11:17)
[2017-05-25] MEDS: AMITRIPTYLINE HCL 25 MG TAB PO SCH (05:48)
[2017-05-25] MEDS: RESP: BUDESONIDE 0.5 MG/2 ML NEB NEB SCH ×2 (07:33→20:53)
[2017-05-25] MEDS: LINEZOLID 600 MG TAB PO SCH ×2 (07:45→20:48)
[2017-05-25] MEDS: QUEtiapine FUMARATE 100 MG TAB PO SCH (07:45)
[2017-05-25] MEDS: FAMOTIDINE 20 MG TAB TUBE SCH ×2 (07:45→20:48)
[2017-05-25] MEDS: BUDESONIDE-FORMOTEROL 80/4.5 MCG INHALER INH SCH ×2 (07:45→20:48)
[2017-05-25] MEDS: SODIUM CHLORIDE 0.9% FLUSH 10 ML FLUSH IV FLUSH SCH ×2 (07:45→20:48)
[2017-05-25] MEDS: ASPIRIN 81 MG CHEW TAB CHEW SCH (07:45)
[2017-05-25] MEDS: busPIRone HCL 10 MG TAB PO SCH (07:45)
[2017-05-25] MEDS: CHLORHEXIDINE 0.12% (ORAL KIT) 15 ML CUP MT SCH ×2 (07:46→20:00)
--- NOTE | 2017-05-25 08:27 | HHI.CCPN ---
Subjective Remarks/Hospital Course 57-year-old female with a medical history significant for morbid obesity, COPD, sleep apnea, diabetes mellitus who was brought to the ER from retirement with altered mental status, fevers and was noted to have an elevated PCO2 on ABG PCO2 79 pH 7.19. Patient was intubated and placed on mechanical ventilation by ER physician. After obtaining blood cultures empiric antibiotics were ordered. Patient was accepted for admission by critical care medicine service. When I evaluated the patient she was sedated with Versed, orally intubated on mechanical ventilation. History was obtained by reviewing records and discussion with Dr. Redman. Subjective : 05/22: T-max 101.3. Urine culture revealed gram-negative rods. Patient remains lightly sedated but following commands. Tolerating tube feeds. CPAP trials to be initiated today. 05/23: Afebrile. Urine and blood culture revealed E. coli. Patient on 100 mics of fentanyl for ventilator synchrony. Patient initiated on CPAP trials and continues greater than 8 hours. Plan for continue CPAP trials to out the night with possible SBT parameters in the a.m.. 05/24: Patient wakes up easily. CPAP trial was attempted but failed today due to tachypnea. Continues to have bilateral upper lung wheezing. IV Solu-Medrol started today, inhaled budesonide also started. Chest x-ray shows bilateral mild patchy infiltrates, sputum growing MRSA. Continue scheduled breathing treatments and antibiotics with Zyvox, Azactam 05/25 No events overnight. Sedated with Diprivan and Fentanyl drips. T:100.2 last night Objective Vital Signs Date Time Temp Pulse Resp B/P (MAP) Pulse Ox O2 Delivery O2 Flow Rate FiO2 05/25/17 07:34 94 45 05/25/17 04:00 99.7 65 18 123/58 (79) Intake and Output 05/25/17 05/25/17 05/26/17 08:00 16:00 00:00 Intake Total 1317 ml Output Total 1650 ml Balance -333 ml Result Diagram: 05/24/17 0335 05/24/17 0039 Imaging Last Impressions Chest X-Ray 05/24/17 0600 Signed Impressions: Service Date/Time: Wednesday, May 24, 2017 03:45 - CONCLUSION: No significant neural change with mid to lower left lung consolidation versus atelectasis and mild patchy right perihilar pulmonary parenchymal opacity. Pablo Powers MD Renal Ultrasound 05/23/17 0000 Signed Impressions: Service Date/Time: Tuesday, May 23, 2017 09:18 - CONCLUSION: No evidence of hydronephrosis.. Ivania Ya MD Objective Remarks HEENT/ Neuro: Lightly sedated, orally intubated, Pallor present, no icterus, tongue/ mucosa moist. GCS 11 T, following commands Neck: No JVD Chest/Pulm: on mech vent, bilateral upper lung gaston wheezing, air entry diminished in the left lung field. CVS: S1-S2 regular, no murmur. Heart sounds are distant GI/abdomen: soft, nontender, bowel sounds sluggish. Morbidly obese. Prior healed surgical scars noted Extremities: warm bilaterally, bilateral trace edema A/P Assessment and Plan 57-year-old female with: Sepsis Encephalopathy Acute respiratory failure on mechanical ventilation Acute COPD exacerbation UTI MRSA pneumonia Morbid obesity COPD Schizophrenia Plan: Neuro: Sedation with Fentanyl/propofol for sedation. Daily sedation vacation Follow neuro status. 05/21 resumed psych meds-to include amitriptyline, Serquel and Buspar. Gabapentin and Lyrica remain on hold Cardiovascular: Maintain MAP greater than 65 mmHg Pulmonary: Continue vent support keep sats >92%, decrease FIO2 40% Continues to fail CPAP trials due to tachypnea and wheezing IV Solu-Medrol 60 mg every 8 hours DuoNeb every 6 hours scheduled and as needed budesonide inhaled twice daily GI/liver: Tube feeds at goal-Jevity 1.5@60ml/hr Bowel regimen Renal/: Monitor renal function, I/O's, electrolytes replacement per protocol. Place on Free water 250ml Q8 monitor sodium level. ID: Urine for strep pneumo and Legionella antigen-negative Nasal washings for influenza A and B-negative Urine culture-E. coli Blood culture-E. coli Sputum - MRSA ID following-continue Zyvox and Azactam Check UA with cx if indicated and sputum cx today Heme: Follow CBC Transfused hemoglobin less than 7 Endocrine: SSI for glycemic control if needed. Prophylaxis Pepcid/SCDs/ add Heparin SQ Follow up on labs today Level 3 Marta Dominique MD May 25, 2017 08:27
[2017-05-25] MEDS: fentaNYL DRIP 250 ML IV PRN (09:12)
[2017-05-25] MEDS: HEPARIN SODIUM - SQ 10,000 UNITS/ML VIAL SQ SCH ×2 (09:13→20:51)
--- NOTE | 2017-05-25 09:47 | HHI.IDPN ---
Subjective Subjective Remarks Patient seen and examined with Dr. Sanchez Ms. Jason Renee is a 57-year-old female with past medical history significant for morbid obesity, sleep apnea, COPD who has been admitted multiple times to the hospital for presented to the ER over the last several years. She has had one intubation 2015 and yet another in 2017 that I could identify from past medical records. Patient also has a history of MRSA in the sputum as well as ESBL Escherichia coli in the urine in the past. Patient is a resident of [facility] and [facility]. Upon arrival her PCO2 was elevated at 79 and a pH was 7.19. Patient is intubated and placed on mechanical ventilation by the ER physician. It appears based on [facility] that she was evaluated for possible UTI and pneumonia. Chest x-ray done on May 19, 2017 showed a mild left lower lobe infiltrate. UA was abnormal and patient was started on oral Levaquin and prednisone for possible acute COPD exacerbation. Given her multiple admissions at risk for infections patient had a sepsis workup and blood cultures, sputum cultures and urine with reflex to urine culture. Her urine was found to be cloudy and cultures are pending at the present time. Infectious disease is consulted for evaluation and management of pneumonia and UTI in and cephalic with the patient multiple admissions to the hospital in the recent past. At the time of my evaluation patient is in the ICU currently intubated, on a ventilator and sedated. She is currently not on any vasopressors. Her urine output is fairly okay. She has not diarrhea. She has small amount of white to yellow secretions. Upon examination of her skin folds there was no evidence of any infection. Overnight events reviewed Discussed with nursing staff Tmax 100.6 sputum cx positive for MRSA No rash No diarrhea Not on pressors. Secretions minimal. remains on vent/per nursing staff unable to tolerate CPAP. 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 Reported history of gastric bypass this remains to be confirmed. Allergies: Coded Allergies: penicillin G (Unverified Allergy, Unknown, 05/21/17) Objective . Vital Signs Date Time Temp Pulse Resp B/P (MAP) Pulse Ox O2 Delivery O2 Flow Rate FiO2 05/25/17 08:00 90 05/25/17 08:00 100.2 90 22 112/56 (74) 93 05/25/17 08:00 45 05/25/17 07:34 94 45 05/25/17 07:33 45 05/25/17 05:26 96 50 05/25/17 04:00 99.7 65 18 123/58 (79) 97 05/25/17 04:00 50 05/25/17 00:53 96 50 05/25/17 00:00 50 05/25/17 00:00 99.7 78 19 140/63 (88) 95 05/24/17 21:05 96 50 05/24/17 20:00 100.2 90 30 131/94 (106) 95 05/24/17 20:00 50 05/24/17 18:00 91 05/24/17 16:00 101 05/24/17 16:00 50 05/24/17 16:00 100.4 96 22 155/79 (104) 95 05/24/17 14:00 94 05/24/17 14:00 95 50 05/24/17 12:00 50 05/24/17 12:00 100.2 95 28 156/66 (96) 96 05/24/17 12:00 93 05/24/17 10:00 98 . Laboratory Tests Test 05/24/17 03:35 05/25/17 09:00 White Blood Count 5.6 TH/MM3 Red Blood Count 3.85 MIL/MM3 Hemoglobin 10.4 GM/DL Hematocrit 34.4 % Mean Corpuscular Volume 89.1 FL Mean Corpuscular Hemoglobin 26.9 PG Mean Corpuscular Hemoglobin Concent 30.2 % Red Cell Distribution Width 18.3 % Platelet Count 147 TH/MM3 Mean Platelet Volume 10.4 FL Laboratory Tests Test 05/24/17 00:39 05/24/17 03:35 05/25/17 08:40 Blood Urea Nitrogen 20 MG/DL Creatinine 0.74 MG/DL Random Glucose 159 MG/DL Calcium Level 8.6 MG/DL Phosphorus Level 2.7 MG/DL 2.3 MG/DL Magnesium Level 2.4 MG/DL Sodium Level 153 MEQ/L Potassium Level 4.0 MEQ/L Chloride Level 119 MEQ/L Carbon Dioxide Level 28.1 MEQ/L Anion Gap 6 MEQ/L Estimat Glomerular Filtration Rate 81 ML/MIN Microbiology Date/Time Source Procedure Growth Status 05/22/17 15:12 Blood Peripheral Aerobic Blood Culture - Preliminary NO GROWTH IN 2 DAYS Resulted 05/22/17 15:12 Blood Peripheral Anaerobic Blood Culture - Final QNS - SEE AEROBE REPORT Resulted 05/22/17 15:00 Blood Peripheral Aerobic Blood Culture - Preliminary NO GROWTH IN 2 DAYS Resulted 05/22/17 15:00 Blood Peripheral Anaerobic Blood Culture - Preliminary NO GROWTH IN 2 DAYS Resulted Imaging Last Impressions Chest X-Ray 05/21/17 0103 Signed Impressions: Service Date/Time: , May 21, 2017 01:26 - CONCLUSION: Satisfactory support line and tube positioning. Hussein Trejo MD Physical Exam GENERAL: Morbidly Obese patient, in no apparent distress. Awake. SKIN: No rashes, ecchymoses or lesions. Cool and dry. 4/7 All skin folds examined with no evidence of infection. HEAD: Atraumatic. Normocephalic. No temporal or scalp tenderness. EYES: Pupils equal round and reactive. No scleral icterus. No injection or drainage. ENT: Intubated. NECK: Trachea midline. Supple, nontender, no meningeal signs. CARDIOVASCULAR: Heart sounds distant but audible. No murmur appreciated. RESPIRATORY: Anterior examination with air entry decreased in the bases, coarse breath sounds noted. GASTROINTESTINAL: Abdomen soft, nondistended. Tenderness to palpation elicited to palpation of lower abdomen and suprapubic area. Colostomy LLQ, pink stoma, soft brown stool in bag. GENITOURINARY: Ocampo catheter in place with yellow urine in bag. MUSCULOSKELETAL: Extremities without clubbing, cyanosis. Pedal edema. NEUROLOGICAL: Sedated. Opens eyes when examining her. Psych could not be assessed IV line sites with no evidence of infection. Assessment & Plan Remarks Sepsis present on admission New fevers ? drug fever. E coli UTI E.coli bacteremia. UTI present on admission. History of ESBL in the past. Multiple hospitalizations in the past. MRSA pneumonia UTI present on admission. History of ESBL in the past. Multiple hospitalizations in the past. Community-acquired pneumonia present on admission. Prior history of MRSA pneumonia Acute metabolic encephalopathy likely secondary to CO2 narcosis as well as infection Acute COPD exacerbation Morbid obesity History of depression and other psychiatric disorders Diabetes with diabetic neuropathy Recommendation: DC aztreonam IV Start Cefepime IV Continue zyvox oral If fevers persist after swapping antibiotics will get Doppler UE and LE. If fevers 101 then salas culture and if diarrhea send cdiff. Follow cultures Follow clinically Discussed with RN, ASHLEY BOYLE No family at bedside Ani Sanchez MD May 25, 2017 09:47
[2017-05-25 09:59] LABS: AUTOMATED NEUTROPHIL # 8.6 TH/MM3 (1.8-7.7); BASOPHIL % 0.3 % (0.0-2.0); EOSINOPHIL % 0.3 % (0.0-4.0); HEMATOCRIT 34.2 % (35.0-46.0); HEMOGLOBIN 10.6 GM/DL (11.6-15.3); LYMPH % 10.4 % (9.0-44.0); LYMPHOCYTE # 1.1 TH/MM3 (1.0-4.8); MEAN CELL VOLUME 87.9 FL (80.0-100.0); MEAN CORPUSCULAR HEMOGLOBIN 27.2 PG (27.0-34.0); MEAN PLATELET VOLUME 10.2 FL (7.0-11.0); MONO % 5.2 % (0.0-8.0); MONOCYTE # 0.5 TH/MM3 (0-0.9); NEUT % 83.8 % (16.0-70.0); PLATELET COUNT 191 TH/MM3 (150-450); RED BLOOD COUNT 3.89 MIL/MM3 (4.00-5.30); WHITE BLOOD COUNT 10.3 TH/MM3 (4.0-11.0)
[2017-05-25 10:16] LABS: ALBUMIN 1.9 GM/DL (3.4-5.0); ALT (GPT) 16 U/L (10-53); AST (GOT) 20 U/L (15-37); BICARBONATE 27.5 MEQ/L (21.0-32.0); BLOOD UREA NITROGEN 21 MG/DL (7-18); CALCIUM 8.5 MG/DL (8.5-10.1); CHLORIDE 119 MEQ/L (98-107); CREATININE 0.67 MG/DL (0.50-1.00); GLOMERULAR FILTRATION RATE 90 ML/MIN (>89); GLUCOSE,RANDOM 128 MG/DL (74-106); SODIUM (NA) 153 MEQ/L (136-145)
[2017-05-25 10:18] LABS: ALKALINE PHOSPHATASE 93 U/L (45-117); TOTAL BILIRUBIN ADULT 0.1 MG/DL (0.2-1.0); TOTAL PROTEIN 6.2 GM/DL (6.4-8.2)
[2017-05-25 11:00] LABS: BACTERIA, URINE RARE /hpf; BILIRUBIN, URINE NEG (NEG); BLOOD, URINE SMALL (NEG); GLUCOSE,URINE NEG (NEG); KETONE, URINE NEG (NEG); MUCUS URINE FEW /lpf (OCC); NITRITE,URINE NEG (NEG); SQUAMOUS EPITHELIAL CELL URINE 6 /hpf (0-5); TRANSITIONAL EPI CELLS, URINE 4 /hpf; URINE COLOR LIGHT-YELLOW (YELLW/STRAW); URINE LEUKOCYTE ESTERASE MOD (NEG); WHITE BLOOD CELL CLUMPS FEW
[2017-05-25] MEDS: CEFEPIME INJ 2,000 MG in SODIUM CHLORIDE 0.9% INJ 100 ML IV SCH ×2 (11:05→17:04)
[2017-05-25 11:17] LABS: MAGNESIUM 2.5 MG/DL (1.5-2.5)
[2017-05-25] MEDS: FREE WATER G-TUBE SCH ×3 (13:00→20:49)
[2017-05-25] MEDS ORDERED: hydrALAZINE HCL 20 MG/ML VIAL IV PUSH PRN (20:45)
[2017-05-25] MEDS: AMITRIPTYLINE HCL 75 MG TAB PO SCH (20:48)
[2017-05-25] MEDS: QUEtiapine FUMARATE 200 MG TAB PO SCH (20:48)
[2017-05-25] MEDS: LABETALOL HCL 100 MG/20 ML VIAL IV PUSH PRN (23:06)
[2017-05-26] VITALS (12 sets, daily range): BP systolic 136–180; BP diastolic 65–80; PULSE 69–92; RESP 19–35; TEMP 97.5–99.3; O2SAT 94–99
[2017-05-26] MEDS: RESP: ALBUTEROL 2.5 MG/IPRATROPIUM 0.5 MG NEB (SCH) NEB ×8 (01:09→23:49)
[2017-05-26] MEDS: FREE WATER G-TUBE SCH (03:32)
[2017-05-26] MEDS: CEFEPIME INJ 2,000 MG in SODIUM CHLORIDE 0.9% INJ 100 ML IV SCH ×3 (03:45→17:01)
[2017-05-26] MEDS: CHLORHEXIDINE GLUCONATE 2 % 1 PACK (2 CLOTHS) TOP SCH (03:46)
[2017-05-26] MEDS: methylPREDNISolone SOD SUCC 125 MG/2 ML VIAL IV PUSH SCH ×3 (03:46→21:30)
[2017-05-26 05:24] LABS: AUTOMATED NEUTROPHIL # 10.1 TH/MM3 (1.8-7.7); BASOPHIL % 0.2 % (0.0-2.0); HEMATOCRIT 35.4 % (35.0-46.0); HEMOGLOBIN 10.9 GM/DL (11.6-15.3); LYMPH % 7.5 % (9.0-44.0); LYMPHOCYTE # 0.9 TH/MM3 (1.0-4.8); MEAN CELL VOLUME 87.3 FL (80.0-100.0); MEAN CORPUSCULAR HGB CONC 30.9 % (32.0-36.0); MEAN PLATELET VOLUME 10.2 FL (7.0-11.0); MONO % 3.5 % (0.0-8.0); MONOCYTE # 0.4 TH/MM3 (0-0.9); NEUT % 88.8 % (16.0-70.0); PLATELET COUNT 213 TH/MM3 (150-450); RED BLOOD COUNT 4.05 MIL/MM3 (4.00-5.30); RED CELL DISTRIBUTION WIDTH 16.9 % (11.6-17.2); WHITE BLOOD COUNT 11.4 TH/MM3 (4.0-11.0)
[2017-05-26 05:42] LABS: ALBUMIN 2.3 GM/DL (3.4-5.0); ALT (GPT) 18 U/L (10-53); AST (GOT) 19 U/L (15-37); BICARBONATE 26.5 MEQ/L (21.0-32.0); CALCIUM 8.9 MG/DL (8.5-10.1); CHLORIDE 120 MEQ/L (98-107); GLOMERULAR FILTRATION RATE 86 ML/MIN (>89); GLUCOSE,RANDOM 99 MG/DL (74-106); SODIUM (NA) 153 MEQ/L (136-145)
[2017-05-26 05:49] LABS: ALKALINE PHOSPHATASE 103 U/L (45-117); BLOOD UREA NITROGEN 21 MG/DL (7-18); TOTAL BILIRUBIN ADULT 0.2 MG/DL (0.2-1.0); TOTAL PROTEIN 6.7 GM/DL (6.4-8.2)
[2017-05-26] MEDS: AMITRIPTYLINE HCL 25 MG TAB PO SCH (07:00)
--- NOTE | 2017-05-26 07:32 | HHI.CCPN ---
Subjective Remarks/Hospital Course 57-year-old female with a medical history significant for morbid obesity, COPD, sleep apnea, diabetes mellitus who was brought to the ER from [facility] with altered mental status, fevers and was noted to have an elevated PCO2 on ABG PCO2 79 pH 7.19. Patient was intubated and placed on mechanical ventilation by ER physician. After obtaining blood cultures empiric antibiotics were ordered. Patient was accepted for admission by critical care medicine service. When I evaluated the patient she was sedated with Versed, orally intubated on mechanical ventilation. History was obtained by reviewing records and discussion with Dr. Redman. Subjective : 05/22: T-max 101.3. Urine culture revealed gram-negative rods. Patient remains lightly sedated but following commands. Tolerating tube feeds. CPAP trials to be initiated today. 05/23: Afebrile. Urine and blood culture revealed E. coli. Patient on 100 mics of fentanyl for ventilator synchrony. Patient initiated on CPAP trials and continues greater than 8 hours. Plan for continue CPAP trials to out the night with possible SBT parameters in the a.m.. 05/24: Patient wakes up easily. CPAP trial was attempted but failed today due to tachypnea. Continues to have bilateral upper lung wheezing. IV Solu-Medrol started today, inhaled budesonide also started. Chest x-ray shows bilateral mild patchy infiltrates, sputum growing MRSA. Continue scheduled breathing treatments and antibiotics with Zyvox, Azactam 05/25 No events overnight. Sedated with Diprivan and Fentanyl drips. T:100.2 last night 05/26 Patient s/p extubation yesterday. Awake and alert. Afebrile. Objective Vital Signs Date Time Temp Pulse Resp B/P (MAP) Pulse Ox O2 Delivery O2 Flow Rate FiO2 05/26/17 05:15 98 40 05/26/17 04:00 98.9 72 23 180/80 (113) 05/25/17 20:54 Nasal Cannula 4.00 Intake and Output 05/26/17 05/26/17 05/27/17 08:00 16:00 00:00 Intake Total 100 ml Output Total 1250 ml Balance -1150 ml Result Diagram: 05/26/17 0322 05/26/17 0322 Other Results Laboratory Tests Test 05/25/17 08:40 05/25/17 08:55 05/25/17 09:00 05/25/17 09:45 Blood Urea Nitrogen 21 MG/DL Creatinine 0.67 MG/DL Random Glucose 128 MG/DL Total Protein 6.2 GM/DL Albumin 1.9 GM/DL Calcium Level 8.5 MG/DL Alkaline Phosphatase 93 U/L Aspartate Amino Transf (AST/SGOT) 20 U/L Alanine Aminotransferase (ALT/SGPT) 16 U/L Total Bilirubin 0.1 MG/DL Sodium Level 153 MEQ/L Potassium Level 4.1 MEQ/L Chloride Level 119 MEQ/L Carbon Dioxide Level 27.5 MEQ/L Anion Gap 7 MEQ/L Estimat Glomerular Filtration Rate 90 ML/MIN Phosphorus Level 2.0 MG/DL Magnesium Level 2.5 MG/DL Blood Gas Puncture Site RT RADIAL Blood Gas Patient Temperature 98.6 Blood Gas HCO3 28 mmol/L Blood Gas Base Excess 3.2 mmol/L Blood Gas Oxygen Saturation 92 % Arterial Blood pH 7.40 Arterial Blood Partial Pressure CO2 46 mmHg Arterial Blood Partial Pressure O2 71 mmHg Arterial Blood Oxygen Content 13.9 Vol % Arterial Blood Carboxyhemoglobin 0.8 % Arterial Blood Methemoglobin 1.2 % Blood Gas Hemoglobin 10.7 G/DL Oxygen Delivery Device VENTILATOR Blood Gas Ventilator Setting CPAP 8/15PS Blood Gas Inspired Oxygen 45 % White Blood Count 10.3 TH/MM3 Red Blood Count 3.89 MIL/MM3 Hemoglobin 10.6 GM/DL Hematocrit 34.2 % Mean Corpuscular Volume 87.9 FL Mean Corpuscular Hemoglobin 27.2 PG Mean Corpuscular Hemoglobin Concent 31.0 % Red Cell Distribution Width 17.0 % Platelet Count 191 TH/MM3 Mean Platelet Volume 10.2 FL Neutrophils (%) (Auto) 83.8 % Lymphocytes (%) (Auto) 10.4 % Monocytes (%) (Auto) 5.2 % Eosinophils (%) (Auto) 0.3 % Basophils (%) (Auto) 0.3 % Neutrophils # (Auto) 8.6 TH/MM3 Lymphocytes # (Auto) 1.1 TH/MM3 Monocytes # (Auto) 0.5 TH/MM3 Eosinophils # (Auto) 0.0 TH/MM3 Basophils # (Auto) 0.0 TH/MM3 CBC Comment AUTO DIFF Differential Comment AUTO DIFF CONFIRMED Platelet Estimate NORMAL Platelet Morphology Comment NORMAL Urine Color LIGHT-YELLOW Urine Turbidity HAZY Urine pH 6.0 Urine Specific [place] 1.019 Urine Protein TRACE mg/dL Urine Glucose (UA) NEG mg/dL Urine Ketones NEG mg/dL Urine Occult Blood SMALL Urine Nitrite NEG Urine Bilirubin NEG Urine Urobilinogen LESS THAN 2.0 MG/DL Urine Leukocyte Esterase MOD Urine RBC 11 /hpf Urine WBC 31 /hpf Urine WBC Clumps FEW Urine Squamous Epithelial Cells 6 /hpf Urine Transitional Epithelial Cells 4 /hpf Urine Bacteria RARE /hpf Urine Mucus FEW /lpf Microscopic Urinalysis Comment CATH-CULTURE IND Test 05/25/17 18:15 05/26/17 03:22 Blood Gas Puncture Site RT BRACHIAL Blood Gas Patient Temperature 98.6 Blood Gas HCO3 27 mmol/L Blood Gas Base Excess 2.6 mmol/L Blood Gas Oxygen Saturation 93 % Arterial Blood pH 7.38 Arterial Blood Partial Pressure CO2 47 mmHg Arterial Blood Partial Pressure O2 76 mmHg Arterial Blood Oxygen Content 14.8 Vol % Arterial Blood Carboxyhemoglobin 0.7 % Arterial Blood Methemoglobin 1.2 % Blood Gas Hemoglobin 11.3 G/DL Oxygen Delivery Device NASAL CANNULA Blood Gas Liter Flow 4 L/M White Blood Count 11.4 TH/MM3 Red Blood Count 4.05 MIL/MM3 Hemoglobin 10.9 GM/DL Hematocrit 35.4 % Mean Corpuscular Volume 87.3 FL Mean Corpuscular Hemoglobin 27.0 PG Mean Corpuscular Hemoglobin Concent 30.9 % Red Cell Distribution Width 16.9 % Platelet Count 213 TH/MM3 Mean Platelet Volume 10.2 FL Neutrophils (%) (Auto) 88.8 % Lymphocytes (%) (Auto) 7.5 % Monocytes (%) (Auto) 3.5 % Eosinophils (%) (Auto) 0.0 % Basophils (%) (Auto) 0.2 % Neutrophils # (Auto) 10.1 TH/MM3 Lymphocytes # (Auto) 0.9 TH/MM3 Monocytes # (Auto) 0.4 TH/MM3 Eosinophils # (Auto) 0.0 TH/MM3 Basophils # (Auto) 0.0 TH/MM3 CBC Comment DIFF FINAL Differential Comment Blood Urea Nitrogen 21 MG/DL Creatinine 0.70 MG/DL Random Glucose 99 MG/DL Total Protein 6.7 GM/DL Albumin 2.3 GM/DL Calcium Level 8.9 MG/DL Alkaline Phosphatase 103 U/L Aspartate Amino Transf (AST/SGOT) 19 U/L Alanine Aminotransferase (ALT/SGPT) 18 U/L Total Bilirubin 0.2 MG/DL Sodium Level 153 MEQ/L Potassium Level 4.2 MEQ/L Chloride Level 120 MEQ/L Carbon Dioxide Level 26.5 MEQ/L Anion Gap 7 MEQ/L Estimat Glomerular Filtration Rate 86 ML/MIN Imaging Last Impressions Chest X-Ray 05/24/17 0600 Signed Impressions: Service Date/Time: Wednesday, May 24, 2017 03:45 - CONCLUSION: No significant neural change with mid to lower left lung consolidation versus atelectasis and mild patchy right perihilar pulmonary parenchymal opacity. Pablo Powers MD Renal Ultrasound 05/23/17 0000 Signed Impressions: Service Date/Time: Tuesday, May 23, 2017 09:18 - CONCLUSION: No evidence of hydronephrosis.. Ivania Ya MD Objective Remarks GENERAL: Patient is 57 yo lying in bed in NAD SKIN: Warm and dry. HEAD: Normocephalic. EYES: No scleral icterus. No injection or drainage. NECK: Supple, trachea midline. No JVD or lymphadenopathy. CARDIOVASCULAR: Regular rate and rhythm without murmurs, gallops, or rubs. RESPIRATORY: Breath sounds equal bilaterally. No accessory muscle use. GASTROINTESTINAL: Abdomen soft, non-tender, nondistended. MUSCULOSKELETAL: No cyanosis, or edema. Neuro: Awake and alert A/P Assessment and Plan 57-year-old female with: Encephalopathy- resolved Acute respiratory failure -extubated 05/25 Acute COPD exacerbation UTI MRSA pneumonia Morbid obesity COPD Schizophrenia Plan: Neuro: Awake and alert, monitor neuro status and avoid sedatives. 05/21 resumed psych meds-to include amitriptyline, Serquel and Buspar. Gabapentin and Lyrica remain on hold Cardiovascular: Place on Cardizem 60mg Q6 for BP control. Monitor HR and BP keep MAP>65mmHg On ASA 81mg daily Pulmonary: Continue with oxygen keep sats >92% IV Solu-Medrol 60 mg every 8 hours DuoNeb every 6 hours scheduled and as needed Continue Symbicort twice daily Incentive spirometry NIPPV PRN for resp distress GI/liver: Speech eval, diet per speech Bowel regimen Renal/: Monitor renal function, I/O's, electrolytes replacement per protocol. Place on D5W@50ml/hr, monitor sodium level ID: Urine for strep pneumo and Legionella antigen-negative Nasal washings for influenza A and B-negative Urine culture-E. coli Blood culture-E. coli Sputum - MRSA ID following-continue Zyvox and Cefepime Follow up on urine cx Heme: Follow CBC Transfused hemoglobin less than 7 Endocrine: SSI for glycemic control if needed. Prophylaxis Pepcid/SCDs/ Heparin SQ Consult PT Level 2 Marta Dominique MD May 26, 2017 07:32
[2017-05-26] MEDS: RESP: BUDESONIDE 0.5 MG/2 ML NEB NEB SCH ×2 (07:40→20:20)
[2017-05-26] MEDS: DILTIAZEM HCL 60 MG TAB PO SCH ×3 (08:00→17:01)
[2017-05-26] MEDS: CHLORHEXIDINE 0.12% (ORAL KIT) 15 ML CUP MT SCH ×2 (08:00→20:00)
[2017-05-26] MEDS: HEPARIN SODIUM - SQ 10,000 UNITS/ML VIAL SQ SCH ×2 (08:01→21:31)
[2017-05-26] MEDS: DEXTROSE 5% IN WATE 1000ML INJ 1,000 ML IV SCH (08:16)
[2017-05-26] MEDS: BUDESONIDE-FORMOTEROL 80/4.5 MCG INHALER INH SCH ×2 (09:00→21:30)
[2017-05-26] MEDS: LINEZOLID 600 MG TAB PO SCH ×2 (09:12→21:30)
[2017-05-26] MEDS: QUEtiapine FUMARATE 100 MG TAB PO SCH (09:12)
[2017-05-26] MEDS: ASPIRIN 81 MG CHEW TAB CHEW SCH (09:12)
[2017-05-26] MEDS: ACETAMINOPHEN 325 MG TAB PO PRN ×2 (09:12→16:15)
[2017-05-26] MEDS: busPIRone HCL 10 MG TAB PO SCH (09:12)
[2017-05-26] MEDS: FAMOTIDINE 20 MG TAB TUBE SCH ×2 (09:12→21:30)
[2017-05-26] MEDS: SODIUM CHLORIDE 0.9% FLUSH 10 ML FLUSH IV FLUSH SCH ×2 (09:13→21:00)
--- NOTE | 2017-05-26 10:37 | HHI.IDPN ---
Subjective Subjective Remarks Ms. Jason Renee is a 57-year-old female with past medical history significant for morbid obesity, sleep apnea, COPD who has been admitted multiple times to the hospital for presented to the ER over the last several years. She has had one intubation 2016 and yet another in 2017 that I could identify from past medical records. Patient also has a history of MRSA in the sputum as well as ESBL Escherichia coli in the urine in the past. Patient [facility] a [facility] and was [facility] from the emergency room from the long term for altered mental status. Upon arrival her PCO2 was elevated at 79 and a pH was 7.19. Patient is intubated and placed on mechanical ventilation by the ER physician. It appears based on review of long term records that she was evaluated for possible UTI and pneumonia. Chest x-ray done on May 19, 2017 showed a mild left lower lobe infiltrate. UA was abnormal and patient was started on oral Levaquin and prednisone for possible acute COPD exacerbation. Given her multiple admissions at risk for infections patient had a sepsis workup and blood cultures, sputum cultures and urine with reflex to urine culture. Her urine was found to be cloudy and cultures are pending at the present time. Infectious disease is consulted for evaluation and management of pneumonia and UTI in and cephalic with the patient multiple admissions to the hospital in the recent past. At the time of my evaluation patient is in the ICU currently intubated, on a ventilator and sedated. She is currently not on any vasopressors. Her urine output is fairly okay. She has not diarrhea. She has small amount of white to yellow secretions. Upon examination of her skin folds there was no evidence of any infection. Overnight events reviewed dw RN Extubated overnight on NC. Cough with White thick mucoid secretions copious. No fevers since Zosyn changed to Cefepime IV. No rash No diarrhea Not on pressors. Urine cultures pending. 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 Reported history of gastric bypass this remains to be confirmed. Allergies: Coded Allergies: penicillin G (Unverified Allergy, Unknown, 05/21/17) Objective . Vital Signs Date Time Temp Pulse Resp B/P (MAP) Pulse Ox O2 Delivery O2 Flow Rate FiO2 05/26/17 10:16 28 05/26/17 10:00 92 05/26/17 08:00 83 05/26/17 08:00 99.1 83 19 149/65 (93) 96 05/26/17 07:40 95 Nasal Cannula 2.00 05/26/17 05:15 98 40 05/26/17 04:00 98.9 72 23 180/80 (113) 98 05/26/17 00:00 98.0 81 23 165/76 (105) 94 05/25/17 20:54 97 Nasal Cannula 4.00 05/25/17 20:00 98.3 87 21 193/88 (123) 95 05/25/17 18:00 96 05/25/17 16:00 92 05/25/17 16:00 99.9 92 23 174/74 (107) 97 05/25/17 15:00 95 Mask 8 50 05/25/17 14:00 84 05/25/17 12:16 93 45 05/25/17 12:00 45 05/25/17 12:00 100.0 77 26 98/54 (69) 93 05/25/17 12:00 77 05/26/17 05/26/17 05/27/17 15:00 23:00 07:00 Intake Total 100 ml Balance 100 ml IV Total 100 ml . Laboratory Tests Test 05/25/17 09:00 05/26/17 03:22 White Blood Count 10.3 TH/MM3 11.4 TH/MM3 Red Blood Count 3.89 MIL/MM3 4.05 MIL/MM3 Hemoglobin 10.6 GM/DL 10.9 GM/DL Hematocrit 34.2 % 35.4 % Mean Corpuscular Volume 87.9 FL 87.3 FL Mean Corpuscular Hemoglobin 27.2 PG 27.0 PG Mean Corpuscular Hemoglobin Concent 31.0 % 30.9 % Red Cell Distribution Width 17.0 % 16.9 % Platelet Count 191 TH/MM3 213 TH/MM3 Mean Platelet Volume 10.2 FL 10.2 FL Neutrophils (%) (Auto) 83.8 % 88.8 % Lymphocytes (%) (Auto) 10.4 % 7.5 % Monocytes (%) (Auto) 5.2 % 3.5 % Eosinophils (%) (Auto) 0.3 % 0.0 % Basophils (%) (Auto) 0.3 % 0.2 % Neutrophils # (Auto) 8.6 TH/MM3 10.1 TH/MM3 Lymphocytes # (Auto) 1.1 TH/MM3 0.9 TH/MM3 Monocytes # (Auto) 0.5 TH/MM3 0.4 TH/MM3 Eosinophils # (Auto) 0.0 TH/MM3 0.0 TH/MM3 Basophils # (Auto) 0.0 TH/MM3 0.0 TH/MM3 CBC Comment AUTO DIFF DIFF FINAL Differential Comment AUTO DIFF CONFIRMED Platelet Estimate NORMAL Platelet Morphology Comment NORMAL Laboratory Tests Test 05/25/17 08:40 05/26/17 03:22 Blood Urea Nitrogen 21 MG/DL 21 MG/DL Creatinine 0.67 MG/DL 0.70 MG/DL Random Glucose 128 MG/DL 99 MG/DL Total Protein 6.2 GM/DL 6.7 GM/DL Albumin 1.9 GM/DL 2.3 GM/DL Calcium Level 8.5 MG/DL 8.9 MG/DL Alkaline Phosphatase 93 U/L 103 U/L Aspartate Amino Transf (AST/SGOT) 20 U/L 19 U/L Alanine Aminotransferase (ALT/SGPT) 16 U/L 18 U/L Total Bilirubin 0.1 MG/DL 0.2 MG/DL Sodium Level 153 MEQ/L 153 MEQ/L Potassium Level 4.1 MEQ/L 4.2 MEQ/L Chloride Level 119 MEQ/L 120 MEQ/L Carbon Dioxide Level 27.5 MEQ/L 26.5 MEQ/L Anion Gap 7 MEQ/L 7 MEQ/L Estimat Glomerular Filtration Rate 90 ML/MIN 86 ML/MIN Phosphorus Level 2.0 MG/DL Magnesium Level 2.5 MG/DL Microbiology Date/Time Source Procedure Growth Status 05/25/17 09:45 Urine Catheterized Urine Urine Culture Pending Received Imaging Last Impressions Chest X-Ray 05/21/17 0103 Signed Impressions: Service Date/Time: May 01:26 - CONCLUSION: Satisfactory support line and tube positioning. Hussein Trejo MD Physical Exam GENERAL: Morbidly Obese patient, in no apparent distress. Awake. SKIN: No rashes, ecchymoses or lesions. Cool and dry. HEAD: Atraumatic. Normocephalic. No temporal or scalp tenderness. EYES: Pupils equal round and reactive. No scleral icterus. No injection or drainage. ENT: gross exam normal. NECK: Trachea midline. Supple, nontender, no meningeal signs. CARDIOVASCULAR: Heart sounds distant but audible. No murmur appreciated. RESPIRATORY: Anterior examination with air entry decreased in the bases, coarse breath sounds noted. GASTROINTESTINAL: Abdomen soft, nondistended. Tenderness to palpation elicited to palpation of lower abdomen and suprapubic area. Colostomy LLQ, pink stoma, soft brown stool in bag. GENITOURINARY: Collier catheter in place with yellow urine in bag. MUSCULOSKELETAL: Extremities without clubbing, cyanosis. Pedal edema. NEUROLOGICAL: Hard of hearing. Speech normal. No obvious focal deficit. Psych could not be assessed IV line sites with no evidence of infection. Assessment & Plan Remarks Sepsis present on admission Possible UTI. Had a collier this admission. E coli UTI E.coli bacteremia. UTI present on admission. History of ESBL in the past. Multiple hospitalizations in the past. MRSA pneumonia Acute metabolic encephalopathy likely secondary to CO2 narcosis as well as infection Acute COPD exacerbation Morbid obesity History of depression and other psychiatric disorders Diabetes with diabetic neuropathy Recommendation: DC aztreonam IV Start Cefepime IV Continue zyvox oral If fevers persist after swapping antibiotics will get Doppler UE and LE. If fevers 101 then salas culture and if diarrhea send cdiff. Follow cultures Follow clinically Discussed with RN, ASHLEY BOYLE No family at bedside Ani Sanchez MD May 26, 2017 10:37
[2017-05-26] MEDS: LABETALOL HCL 100 MG/20 ML VIAL IV PUSH PRN (18:06)
[2017-05-26] MEDS: QUEtiapine FUMARATE 200 MG TAB PO SCH (21:30)
[2017-05-26] MEDS: AMITRIPTYLINE HCL 75 MG TAB PO SCH (21:30)
[2017-05-27] VITALS (14 sets, daily range): BP systolic 131–181; BP diastolic 62–77; PULSE 69–96; RESP 18–55; TEMP 97.6–98.7; O2SAT 97–100
[2017-05-27] MEDS: DILTIAZEM HCL 60 MG TAB PO SCH ×5 (01:23→23:59)
[2017-05-27] MEDS: CEFEPIME INJ 2,000 MG in SODIUM CHLORIDE 0.9% INJ 100 ML IV SCH ×3 (01:24→16:34)
[2017-05-27] MEDS: LABETALOL HCL 100 MG/20 ML VIAL IV PUSH PRN (01:24)
[2017-05-27] MEDS: CHLORHEXIDINE GLUCONATE 2 % 1 PACK (2 CLOTHS) TOP SCH (04:00)
[2017-05-27] MEDS: DEXTROSE 5% IN WATE 1000ML INJ 1,000 ML IV SCH (04:00)
[2017-05-27] MEDS: RESP: ALBUTEROL 2.5 MG/IPRATROPIUM 0.5 MG NEB (SCH) NEB ×5 (04:15→19:37)
[2017-05-27] MEDS: methylPREDNISolone SOD SUCC 125 MG/2 ML VIAL IV PUSH SCH ×2 (06:00→12:01)
[2017-05-27] MEDS: AMITRIPTYLINE HCL 25 MG TAB PO SCH (06:20)
[2017-05-27 06:50] LABS: AUTOMATED NEUTROPHIL # 8.1 TH/MM3 (1.8-7.7); BASOPHIL % 0.4 % (0.0-2.0); EOSINOPHIL % 0.1 % (0.0-4.0); HEMATOCRIT 38.6 % (35.0-46.0); HEMOGLOBIN 11.9 GM/DL (11.6-15.3); LYMPH % 10.4 % (9.0-44.0); MEAN CELL VOLUME 86.9 FL (80.0-100.0); MEAN CORPUSCULAR HEMOGLOBIN 26.8 PG (27.0-34.0); MEAN CORPUSCULAR HGB CONC 30.9 % (32.0-36.0); MEAN PLATELET VOLUME 10.7 FL (7.0-11.0); MONO % 4.4 % (0.0-8.0); MONOCYTE # 0.4 TH/MM3 (0-0.9); NEUT % 84.7 % (16.0-70.0); PLATELET COUNT 201 TH/MM3 (150-450); RED BLOOD COUNT 4.44 MIL/MM3 (4.00-5.30); RED CELL DISTRIBUTION WIDTH 16.8 % (11.6-17.2); WHITE BLOOD COUNT 9.6 TH/MM3 (4.0-11.0)
[2017-05-27 07:05] LABS: BICARBONATE 24.9 MEQ/L (21.0-32.0); CREATININE 0.61 MG/DL (0.50-1.00)
[2017-05-27] MEDS: RESP: BUDESONIDE 0.5 MG/2 ML NEB NEB SCH ×2 (07:28→19:37)
--- NOTE | 2017-05-27 07:32 | HHI.CCPN ---
Subjective Remarks/Hospital Course 57-year-old female with a medical history significant for morbid obesity, COPD, sleep apnea, diabetes mellitus who was brought to the ER from residential with altered mental status, fevers and was noted to have an elevated PCO2 on ABG PCO2 79 pH 7.19. Patient was intubated and placed on mechanical ventilation by ER physician. After obtaining blood cultures empiric antibiotics were ordered. Patient was accepted for admission by critical care medicine service. When I evaluated the patient she was sedated with Versed, orally intubated on mechanical ventilation. History was obtained by reviewing records and discussion with Dr. Redman. Subjective : 05/22: T-max 101.3. Urine culture revealed gram-negative rods. Patient remains lightly sedated but following commands. Tolerating tube feeds. CPAP trials to be initiated today. 05/23: Afebrile. Urine and blood culture revealed E. coli. Patient on 100 mics of fentanyl for ventilator synchrony. Patient initiated on CPAP trials and continues greater than 8 hours. Plan for continue CPAP trials to out the night with possible SBT parameters in the a.m.. 05/24: Patient wakes up easily. CPAP trial was attempted but failed today due to tachypnea. Continues to have bilateral upper lung wheezing. IV Solu-Medrol started today, inhaled budesonide also started. Chest x-ray shows bilateral mild patchy infiltrates, sputum growing MRSA. Continue scheduled breathing treatments and antibiotics with Zyvox, Azactam 05/25 No events overnight. Sedated with Diprivan and Fentanyl drips. T:100.2 last night 05/26 Patient s/p extubation yesterday. Awake and alert. Afebrile. 05/27 No events overnight. Afebrile. Awake and alert. Objective Vital Signs Date Time Temp Pulse Resp B/P (MAP) Pulse Ox O2 Delivery O2 Flow Rate FiO2 05/27/17 04:14 99 30 05/27/17 04:00 98.3 70 27 165/72 (103) 05/26/17 20:20 Nasal Cannula 3.00 Intake and Output 05/27/17 05/27/17 05/28/17 08:00 16:00 00:00 Intake Total 1407 ml Output Total 1400 ml Balance 7 ml Result Diagram: 05/27/17 0558 05/27/17 0558 Other Results Laboratory Tests Test 05/27/17 05:58 White Blood Count 9.6 TH/MM3 Red Blood Count 4.44 MIL/MM3 Hemoglobin 11.9 GM/DL Hematocrit 38.6 % Mean Corpuscular Volume 86.9 FL Mean Corpuscular Hemoglobin 26.8 PG Mean Corpuscular Hemoglobin Concent 30.9 % Red Cell Distribution Width 16.8 % Platelet Count 201 TH/MM3 Mean Platelet Volume 10.7 FL Neutrophils (%) (Auto) 84.7 % Lymphocytes (%) (Auto) 10.4 % Monocytes (%) (Auto) 4.4 % Eosinophils (%) (Auto) 0.1 % Basophils (%) (Auto) 0.4 % Neutrophils # (Auto) 8.1 TH/MM3 Lymphocytes # (Auto) 1.0 TH/MM3 Monocytes # (Auto) 0.4 TH/MM3 Eosinophils # (Auto) 0.0 TH/MM3 Basophils # (Auto) 0.0 TH/MM3 CBC Comment DIFF FINAL Differential Comment Blood Urea Nitrogen 21 MG/DL Creatinine 0.61 MG/DL Random Glucose 107 MG/DL Calcium Level 9.0 MG/DL Sodium Level 147 MEQ/L Potassium Level 4.3 MEQ/L Chloride Level 115 MEQ/L Carbon Dioxide Level 24.9 MEQ/L Anion Gap 7 MEQ/L Estimat Glomerular Filtration Rate 101 ML/MIN Imaging Last Impressions Chest X-Ray 05/24/17 0600 Signed Impressions: Service Date/Time: Wednesday, May 24, 2017 03:45 - CONCLUSION: No significant neural change with mid to lower left lung consolidation versus atelectasis and mild patchy right perihilar pulmonary parenchymal opacity. Pablo Powers MD Renal Ultrasound 05/23/17 0000 Signed Impressions: Service Date/Time: Tuesday, May 23, 2017 09:18 - CONCLUSION: No evidence of hydronephrosis.. Ivania aY MD Objective Remarks GENERAL: Patient is 57 yo lying in bed in NAD SKIN: Warm and dry. HEAD: Normocephalic. EYES: No scleral icterus. No injection or drainage. NECK: Supple, trachea midline. No JVD or lymphadenopathy. CARDIOVASCULAR: Regular rate and rhythm without murmurs, gallops, or rubs. RESPIRATORY: Breath sounds equal bilaterally. No accessory muscle use. GASTROINTESTINAL: Abdomen soft, non-tender, nondistended. MUSCULOSKELETAL: No cyanosis, or edema. Neuro: Awake and alert A/P Assessment and Plan 57-year-old female with: Encephalopathy- resolved Acute respiratory failure -extubated 05/25 Acute COPD exacerbation UTI MRSA pneumonia Morbid obesity COPD Schizophrenia Plan: Neuro: Awake and alert, monitor neuro status and avoid sedatives. 05/21 resumed psych meds-to include amitriptyline, Serquel and Buspar. Gabapentin and Lyrica remain on hold Cardiovascular: Place on Cardizem 60mg Q6 for BP control. Monitor HR and BP keep MAP>65mmHg On ASA 81mg daily Pulmonary: Continue with oxygen keep sats >92% IV Solu-Medrol 60 mg every 8 hours DuoNeb every 6 hours scheduled and as needed Continue Symbicort twice daily Incentive spirometry NIPPV PRN for resp distress GI/liver: Speech eval, diet per speech Bowel regimen Renal/: Monitor renal function, I/O's, electrolytes replacement per protocol. d/c IVF ID: Urine for strep pneumo and Legionella antigen-negative Nasal washings for influenza A and B-negative Urine culture-E. coli Blood culture-E. coli Sputum - MRSA ID following-continue Zyvox and Cefepime Follow up on urine cx 05/25: No growth Heme: Follow CBC Transfused hemoglobin less than 7 Endocrine: SSI for glycemic control if needed. Prophylaxis Pepcid/SCDs/ Heparin SQ Consult PT Will sign off and transfer care to [facility] Level 2 Marta Dominique MD May 27, 2017 07:32
[2017-05-27] MEDS: CHLORHEXIDINE 0.12% (ORAL KIT) 15 ML CUP MT SCH ×2 (08:00→20:00)
[2017-05-27] MEDS: LINEZOLID 600 MG TAB PO SCH ×2 (08:31→20:35)
[2017-05-27] MEDS: ASPIRIN 81 MG CHEW TAB CHEW SCH (08:31)
[2017-05-27] MEDS: busPIRone HCL 10 MG TAB PO SCH (08:31)
[2017-05-27] MEDS: QUEtiapine FUMARATE 100 MG TAB PO SCH (08:31)
[2017-05-27] MEDS: FAMOTIDINE 20 MG TAB TUBE SCH ×2 (08:31→20:35)
[2017-05-27] MEDS: SODIUM CHLORIDE 0.9% FLUSH 10 ML FLUSH IV FLUSH SCH ×2 (08:32→20:36)
[2017-05-27] MEDS: BUDESONIDE-FORMOTEROL 80/4.5 MCG INHALER INH SCH ×2 (08:32→20:36)
[2017-05-27] MEDS: HEPARIN SODIUM - SQ 10,000 UNITS/ML VIAL SQ SCH ×2 (08:33→20:35)
[2017-05-27] MEDS: ACETAMINOPHEN 325 MG TAB PO PRN ×2 (09:58→16:34)
--- NOTE | 2017-05-27 13:55 | MB ---
cc: Jayden Pastor MD DATE: 05/27/2017 HISTORY OF PRESENT ILLNESS: Ms. Gibson is a 57-year-old white female, extremely morbidly obese, who has lived in a nursing facility here for 4 years. Since 2016 she has had 6 hospital admissions here for respiratory related problems, respiratory failure. Most recent was in February of this year. She has a prior history of recurrent respiratory failure, obstructive sleep apnea, was a prior smoker and apparently has underlying chronic obstructive pulmonary disease, although I have no pulmonary functions to look at. On presentation for this admission, her initial blood gases on 5 liters nasal cannula, pO2 was 68, pH 7.2 and pCO2 was 80. She was placed on mechanical ventilatory support, eventually weaned off on 05/25/2017 and on 4 liters nasal cannula she is now pO2 of 76 with a pH of 7.38 and a PCO2 of 47. She does not really have any specific symptoms leading up to this that could have precipitated it. Her chest x-ray did reveal patchy consolidation in the left lung base. She grew MRSA from her sputum and she had a significant urinary tract infection with Escherichia coli. Antibiotics have been monitored by Infectious Disease. Today, at the time of this interview, she is awake, alert, on 4 liters of nasal oxygen. O2 saturations are in the range of 95-99% and she is very comfortable. She is very debilitated. She is extremely obese despite a previous gastric bypass surgery. As I said, she has been in a nursing facility here locally for the last 4 years. She denies chest pain. She denies previous cardiac history. She was a former smoker; it sounds like possibly 20-30 pack-years, quit smoking about 15-20 years ago. Currently, she denies shortness of breath at rest. There is no chest pain. She has had no cough or congestion. LABORATORY DATA: White count on presentation was 5900, hemoglobin 10, BUN 21, creatinine 0.6. Liver functions were normal. Albumin is 2. MRSA was positive on nasal wash as well as in the sputum. PAST MEDICAL HISTORY: Obstructive sleep apnea documented many years ago apparently by a bandage maker out of this area, but she has not been able to afford whatever the cost would be for her to use CPAP, so that has not been treated recently. She has chronic pain, history of reflux disease, depression. PAST SURGICAL HISTORY: She had a gastric bypass surgery at about 49 years of age, two previous C-sections and a partial bowel resection for diverticulitis 2 years ago. MEDICATIONS: Regular medications at home as well as medications currently ordered in the hospital are reviewed in the EMR. ALLERGIES: PENICILLIN. SOCIAL HISTORY: She is from her . They have 2 children. She lives in a local nursing facility. Originally from [place]. No alcohol abuse history. PHYSICAL EXAMINATION: GENERAL: A very obese woman lying in bed at rest on nasal cannula, comfortable. VITAL SIGNS: Afebrile, 140/76, respirations are 18-22 and her pulse is 70. HEENT: Sclerae are anicteric. NECK: Neck veins are flat. No palpable adenopathy in the neck or supraclavicular region. CHEST: Clear. No audible wheezing or congestion. HEART: Regular rhythm. No harsh murmur. ABDOMEN: Very obese. EXTREMITIES: He has no pitting edema at the ankles. No obvious calf tenderness. DISCUSSION: Ms. Gibson has a history of COPD. She is a former smoker. How much of the problem is related to underlying COPD versus her morbid obesity is unclear. Apparently no prior cardiovascular history and no evidence that she is in heart failure at present. It would be helpful if she could be reevaluated for sleep and placed on appropriate therapy if she continues to have obstructive sleep apnea. I have ordered an echocardiogram to see if there is any underlying pulmonary hypertension or left ventricular dysfunction contributing to these recurrent episodes of respiratory failure. Reduce her methylprednisolone dose. Continue her aerosolized bronchodilators and oxygen. Further diagnostic and/or therapeutic intervention will depend on her ongoing clinical course. R. MD ZAK Frank/DEREK , 01:22 PM , 01:54 PM
--- NOTE | 2017-05-27 15:23 | HHI.IDPN ---
Subjective Subjective Remarks Ms. Jason Renee is a 57-year-old female with past medical history significant for morbid obesity, sleep apnea, COPD who has been admitted multiple times to the hospital for presented to the ER over the last several years. She has had one intubation 2015 and yet another in 2017 that I could identify from past medical records. Patient also has a history of MRSA in the sputum as well as ESBL Escherichia coli in the urine in the past. Patient is a resident of [facility] and [facility] and was admitted from the emergency room from the [facility] for altered mental status. Upon arrival her PCO2 was elevated at 79 and a pH was 7.19. Patient is intubated and placed on mechanical ventilation by the ER physician. It appears based on review of [facility] records that she was evaluated for possible UTI and pneumonia. Chest x-ray done on May 19, 2017 showed a mild left lower lobe infiltrate. UA was abnormal and patient was started on oral Levaquin and prednisone for possible acute COPD exacerbation. Given her multiple admissions at risk for infections patient had a sepsis workup and blood cultures, sputum cultures and urine with reflex to urine culture. Her urine was found to be cloudy and cultures are pending at the present time. Infectious disease is consulted for evaluation and management of pneumonia and UTI in and cephalic with the patient multiple admissions to the hospital in the recent past. At the time of my evaluation patient is in the ICU currently intubated, on a ventilator and sedated. She is currently not on any vasopressors. Her urine output is fairly okay. She has not diarrhea. She has small amount of white to yellow secretions. Upon examination of her skin folds there was no evidence of any infection. Notes reviewed Temps ok Last fever 05/25 Extubated 05/25 WBC normal Has good sats nasal O2 No rash No diarrhea BP ok Urine cultures negative Labs and C/S reviewed Antibiotics Cefepime IV Zyvox oral Current Medications Medications (Trade) Dose Ordered Sig/Elliot Route Start Time Stop Time Status Last Admin (NS Flush) 2 ml UNSCH PRN IV FLUSH 05/21/17 02:30 (NS Flush) 2 ml BID IV FLUSH 05/21/17 09:00 05/27/17 08:32 (Tylenol) 650 mg Q6H PRN PO 05/21/17 02:30 05/27/17 09:58 (Duoneb Neb) 1 ampule Q4HR NEB PRN INH 05/21/17 02:30 (Peridex 0.12% Liq) 15 ml BID@08,20 MT 05/21/17 08:00 05/25/17 07:46 (Pepcid) 20 mg BID TUBE 05/21/17 09:00 05/27/17 08:31 Miscellaneous Information 1 Q361D XX 05/21/17 02:30 05/21/17 02:30 (Chlorhexidine 2% Cloth) Taper DAILY@04 TOP 05/21/17 04:00 05/17/18 03:59 05/25/17 04:00 (Chlorhexidine 2% Cloth) 3 pack UNSCH PRN TOP 05/21/17 02:30 (Elavil) 25 mg AC BREAKFAST PO 05/22/17 07:00 05/27/17 06:20 (Elavil) 75 mg HS PO 05/21/17 21:00 05/26/17 21:30 (Aspirin Chew) 81 mg DAILY CHEW 05/22/17 09:00 05/27/17 08:31 (Buspar) 10 mg DAILY PO 05/22/17 09:00 05/27/17 08:31 (SEROquel) 100 mg DAILY PO 05/22/17 09:00 05/27/17 08:31 (SEROquel) 200 mg HS PO 05/21/17 21:00 05/26/17 21:30 (Pill Splitter) 1 ea UNSCH PRN OTHER 05/21/17 15:30 (Symbicort 80-4.5 Mcg Inh) 2 puff Q12HR INH 05/22/17 10:00 05/27/17 08:32 (Zyvox) 600 mg Q12HR PO 05/24/17 09:30 05/27/17 08:31 (Pulmicort Respule Neb) 0.5 mg Q12HR NEB NEB 05/24/17 12:15 05/27/17 07:28 (Heparin Inj) 5,000 units Q12HR SQ 05/25/17 08:45 05/27/17 08:33 Cefepime HCl 2000 mg/Sodium Chloride 100 ml @ 200 mls/hr Q8H IV 05/25/17 10:00 05/27/17 09:57 (Apresoline Inj) 20 mg Q4H PRN IV PUSH 05/25/17 20:45 05/26/17 04:44 (Trandate Inj) 10 mg Q4H PRN IV PUSH 05/25/17 20:45 05/27/17 01:24 (Cardizem) 60 mg Q6HR PO 05/26/17 08:00 05/27/17 12:01 (Duoneb Neb) 1 ampule TID NEB NEB 05/27/17 14:00 (SoluMEDROL INJ) 40 mg BID IV PUSH 05/27/17 21:00 Lines Line sites with no e.o infection Past Medical History Past Medical History Anemia Type 2 diabetes with diabetic neuropathy Nausea vomiting possibly gastroparesis Edema signs 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 Reported history of gastric bypass this remains to be confirmed. Allergies: Coded Allergies: penicillin G (Unverified Allergy, Unknown, 05/21/17) Objective . Vital Signs Date Time Temp Pulse Resp B/P (MAP) Pulse Ox O2 Delivery O2 Flow Rate FiO2 05/27/17 14:00 81 05/27/17 12:00 98.4 69 22 149/76 (100) 99 05/27/17 12:00 69 05/27/17 10:00 77 05/27/17 08:00 98.7 70 18 145/65 (91) 98 05/27/17 08:00 70 05/27/17 07:30 98 Nasal Cannula 2.00 05/27/17 04:14 99 30 05/27/17 04:00 98.3 70 27 165/72 (103) 100 05/27/17 01:23 98 30 05/27/17 00:00 98.0 69 36 181/77 (111) 97 05/26/17 20:20 99 Nasal Cannula 3.00 05/26/17 20:00 97.9 69 31 167/74 (105) 99 05/26/17 18:00 77 05/26/17 17:15 26 05/26/17 16:00 78 05/26/17 16:00 97.5 78 35 175/72 (106) 95 . Laboratory Tests Test 05/26/17 03:22 05/27/17 05:58 White Blood Count 11.4 TH/MM3 9.6 TH/MM3 Red Blood Count 4.05 MIL/MM3 4.44 MIL/MM3 Hemoglobin 10.9 GM/DL 11.9 GM/DL Hematocrit 35.4 % 38.6 % Mean Corpuscular Volume 87.3 FL 86.9 FL Mean Corpuscular Hemoglobin 27.0 PG 26.8 PG Mean Corpuscular Hemoglobin Concent 30.9 % 30.9 % Red Cell Distribution Width 16.9 % 16.8 % Platelet Count 213 TH/MM3 201 TH/MM3 Mean Platelet Volume 10.2 FL 10.7 FL Neutrophils (%) (Auto) 88.8 % 84.7 % Lymphocytes (%) (Auto) 7.5 % 10.4 % Monocytes (%) (Auto) 3.5 % 4.4 % Eosinophils (%) (Auto) 0.0 % 0.1 % Basophils (%) (Auto) 0.2 % 0.4 % Neutrophils # (Auto) 10.1 TH/MM3 8.1 TH/MM3 Lymphocytes # (Auto) 0.9 TH/MM3 1.0 TH/MM3 Monocytes # (Auto) 0.4 TH/MM3 0.4 TH/MM3 Eosinophils # (Auto) 0.0 TH/MM3 0.0 TH/MM3 Basophils # (Auto) 0.0 TH/MM3 0.0 TH/MM3 CBC Comment DIFF FINAL DIFF FINAL Differential Comment Laboratory Tests Test 05/26/17 03:22 05/27/17 05:58 Blood Urea Nitrogen 21 MG/DL 21 MG/DL Creatinine 0.70 MG/DL 0.61 MG/DL Random Glucose 99 MG/DL 107 MG/DL Total Protein 6.7 GM/DL Albumin 2.3 GM/DL Calcium Level 8.9 MG/DL 9.0 MG/DL Alkaline Phosphatase 103 U/L Aspartate Amino Transf (AST/SGOT) 19 U/L Alanine Aminotransferase (ALT/SGPT) 18 U/L Total Bilirubin 0.2 MG/DL Sodium Level 153 MEQ/L 147 MEQ/L Potassium Level 4.2 MEQ/L 4.3 MEQ/L Chloride Level 120 MEQ/L 115 MEQ/L Carbon Dioxide Level 26.5 MEQ/L 24.9 MEQ/L Anion Gap 7 MEQ/L 7 MEQ/L Estimat Glomerular Filtration Rate 86 ML/MIN 101 ML/MIN Microbiology Date/Time Source Procedure Growth Status 05/25/17 09:45 Urine Catheterized Urine Urine Culture - Final NO GROWTH IN 48 HOURS. Complete Imaging Chest X-Ray 05/24/17 0600 Signed Impressions: Service Date/Time: Wednesday, May 24, 2017 03:45 - CONCLUSION: No significant neural change with mid to lower left lung consolidation versus atelectasis and mild patchy right perihilar pulmonary parenchymal opacity. Pablo Powers MD Renal Ultrasound 05/23/17 0000 Signed Impressions: Service Date/Time: Tuesday, May 23, 2017 09:18 - CONCLUSION: No evidence of hydronephrosis.. Ivania Ya MD Chest X-Ray 05/21/17 0103 Signed Impressions: Service Date/Time: May 01:26 - CONCLUSION: Satisfactory support line and tube positioning. Hussein Trejo MD Physical Exam GENERAL: Morbidly Obese patient, in no apparent distress. Awake. SKIN: No rashes, ecchymoses or lesions. Cool and dry. HEAD: Atraumatic. Normocephalic. No temporal or scalp tenderness. EYES: Pupils equal round and reactive. No scleral icterus. No injection or drainage. ENT: gross exam normal. NECK: Trachea midline. Supple, nontender, no meningeal signs. CARDIOVASCULAR: Heart sounds distant but audible. No murmur appreciated. RESPIRATORY: Anterior examination with air entry decreased in the bases, coarse breath sounds noted. GASTROINTESTINAL: Abdomen soft, nondistended, obese. Colostomy LLQ, pink stoma , soft brown stool in bag. GENITOURINARY: Ocapmo catheter in place with yellow urine in bag. MUSCULOSKELETAL: Extremities without clubbing, cyanosis. Pedal edema. NEUROLOGICAL: No obvious focal deficit. Psych could not be assessed IV line sites with no evidence of infection. Assessment & Plan Remarks Sepsis present on admission, better New fevers ? drug fever. - better E coli UTI E.coli bacteremia. UTI present on admission. History of ESBL in the past. Multiple hospitalizations in the past. MRSA pneumonia - CXR better Respiratory failure, tolerating extubation UTI present on admission. History of ESBL in the past. Multiple hospitalizations in the past. Acute metabolic encephalopathy likely secondary to CO2 narcosis as well as infection Acute COPD exacerbation Morbid obesity History of depression and other psychiatric disorders Diabetes with diabetic neuropathy Recommendation: Continue Cefepime IV Continue zyvox oral Monitor temps Follow C/S Monitor progress Brianda Huggins MD May 27, 2017 15:23
--- NOTE | 2017-05-27 20:12 | HHI.PR ---
Subjective Remarks NOT SEEN Objective Vitals Vital Signs Date Time Temp Pulse Resp B/P (MAP) Pulse Ox O2 Delivery O2 Flow Rate FiO2 05/27/17 19:37 99 Nasal Cannula 2.00 05/27/17 18:00 73 05/27/17 16:00 76 05/27/17 16:00 98.4 76 20 131/62 (85) 98 05/27/17 14:00 81 05/27/17 12:00 98.4 69 22 149/76 (100) 99 05/27/17 12:00 69 05/27/17 10:00 77 05/27/17 08:00 98.7 70 18 145/65 (91) 98 05/27/17 08:00 70 05/27/17 07:30 98 Nasal Cannula 2.00 05/27/17 04:14 99 30 05/27/17 04:00 98.3 70 27 165/72 (103) 100 05/27/17 01:23 98 30 05/27/17 00:00 98.0 69 36 181/77 (111) 97 05/26/17 20:20 99 Nasal Cannula 3.00 I/O 05/26/17 05/26/17 05/26/17 05/27/17 05/27/17 05/27/17 07:00 15:00 23:00 07:00 15:00 23:00 Intake Total 100 ml 100 ml 1170.5 ml 1407 ml 1160 ml Output Total 1250 ml 1350 ml 1400 ml 1200 ml Balance -1150 ml 100 ml -179.5 ml 7 ml -40 ml Intake Oral 0 ml 600 ml 240 ml 960 ml IV Total 100 ml 100 ml 570.5 ml 1167 ml 200 ml Output Urine Total 1250 ml 1350 ml 1400 ml 1200 ml Stool Total 0 ml 0 ml # Bowel Movements 0 Result Diagram: 05/27/17 0558 05/27/17 0558 Imaging Last Impressions Chest X-Ray 05/24/17 0600 Signed Impressions: Service Date/Time: Wednesday, May 24, 2017 03:45 - CONCLUSION: No significant neural change with mid to lower left lung consolidation versus atelectasis and mild patchy right perihilar pulmonary parenchymal opacity. Pablo Powers MD Renal Ultrasound 05/23/17 0000 Signed Impressions: Service Date/Time: Tuesday, May 23, 2017 09:18 - CONCLUSION: No evidence of hydronephrosis.. Ivania Ya MD Objective Remarks GENERAL: Patient is 57 yo lying in bed in NAD SKIN: Warm and dry. HEAD: Normocephalic. EYES: No scleral icterus. No injection or drainage. NECK: Supple, trachea midline. No JVD or lymphadenopathy. CARDIOVASCULAR: Regular rate and rhythm without murmurs, gallops, or rubs. RESPIRATORY: Breath sounds equal bilaterally. No accessory muscle use. GASTROINTESTINAL: Abdomen soft, non-tender, nondistended. MUSCULOSKELETAL: No cyanosis, or edema. Neuro: Awake and alert A/P Problem List: (1) Acute respiratory failure with hypoxia and hypercarbia ICD Code: J96.01 - Acute respiratory failure with hypoxia; J96.02 - Acute respiratory failure with hypercapnia Status: Resolved (2) UTI (urinary tract infection) ICD Code: N39.0 - Urinary tract infection, site not specified Status: Acute (3) PNA (pneumonia) ICD Code: J18.9 - Pneumonia, unspecified organism Status: Acute Assessment and Plan 57-year-old female with: Encephalopathy- resolved Acute respiratory failure -extubated / Acute COPD exacerbation. Improving ct nebs and taper steroids. F/U ECHO E coli UTI and bacteremia, MRSA pneumonia. Ct Cefepime and Zyvox Morbid obesity. Wt reduction Schizophrenia. Ct psych meds-to include amitriptyline, Seroquel and Buspar. Gabapentin and Lyrica remain on hold Prophylaxis Pepcid/SCDs/ Heparin SQ Discharge Planning Rehab Homero Rockwell MD May 27, 2017 20:12
[2017-05-27] MEDS: AMITRIPTYLINE HCL 75 MG TAB PO SCH (20:35)
[2017-05-27] MEDS: QUEtiapine FUMARATE 200 MG TAB PO SCH (20:35)
[2017-05-27] MEDS: methylPREDNISolone SOD SUCC 40 MG/1 ML VIAL IV PUSH SCH (20:36)
[2017-05-27] MEDS: MUPIROCIN 2% OINT 1 APPLIC/GM SYR EACH NARE SCH (20:56)
[2017-05-28] VITALS (14 sets, daily range): BP systolic 134–168; BP diastolic 61–76; PULSE 71–96; RESP 18–47; TEMP 97.7–98.3; O2SAT 95–99
[2017-05-28] MEDS: ACETAMINOPHEN 325 MG TAB PO PRN ×3 (02:09→23:06)
[2017-05-28] MEDS: CEFEPIME INJ 2,000 MG in SODIUM CHLORIDE 0.9% INJ 100 ML IV SCH ×2 (02:09→10:00)
[2017-05-28] MEDS: CHLORHEXIDINE GLUCONATE 2 % 1 PACK (2 CLOTHS) TOP SCH (03:14)
[2017-05-28 04:47] LABS: AUTOMATED NEUTROPHIL # 8.6 TH/MM3 (1.8-7.7); BASOPHIL % 0.1 % (0.0-2.0); HEMATOCRIT 38.3 % (35.0-46.0); HEMOGLOBIN 12.2 GM/DL (11.6-15.3); LYMPHOCYTE # 0.4 TH/MM3 (1.0-4.8); MEAN CELL VOLUME 85.9 FL (80.0-100.0); MEAN CORPUSCULAR HEMOGLOBIN 27.3 PG (27.0-34.0); MEAN CORPUSCULAR HGB CONC 31.7 % (32.0-36.0); MEAN PLATELET VOLUME 10.7 FL (7.0-11.0); MONO % 0.6 % (0.0-8.0); MONOCYTE # 0.1 TH/MM3 (0-0.9); NEUT % 95.3 % (16.0-70.0); PLATELET COUNT 228 TH/MM3 (150-450); RED BLOOD COUNT 4.46 MIL/MM3 (4.00-5.30); RED CELL DISTRIBUTION WIDTH 16.8 % (11.6-17.2); WHITE BLOOD COUNT 9.1 TH/MM3 (4.0-11.0)
[2017-05-28 05:12] LABS: BICARBONATE 24.6 MEQ/L (21.0-32.0); CALCIUM 9.1 MG/DL (8.5-10.1); CREATININE 0.65 MG/DL (0.50-1.00)
[2017-05-28] MEDS: DILTIAZEM HCL 60 MG TAB PO SCH ×4 (05:41→23:04)
[2017-05-28] MEDS: AMITRIPTYLINE HCL 25 MG TAB PO SCH (06:23)
[2017-05-28] MEDS: RESP: ALBUTEROL 2.5 MG/IPRATROPIUM 0.5 MG NEB (SCH) NEB ×3 (07:36→20:06)
[2017-05-28] MEDS: RESP: BUDESONIDE 0.5 MG/2 ML NEB NEB SCH (07:36)
[2017-05-28] MEDS: CHLORHEXIDINE 0.12% (ORAL KIT) 15 ML CUP MT SCH ×2 (08:00→20:00)
[2017-05-28] MEDS: MUPIROCIN 2% OINT 1 APPLIC/GM SYR EACH NARE SCH ×2 (08:27→21:00)
[2017-05-28] MEDS: LINEZOLID 600 MG TAB PO SCH ×2 (08:28→22:45)
[2017-05-28] MEDS: methylPREDNISolone SOD SUCC 40 MG/1 ML VIAL IV PUSH SCH (08:28)
[2017-05-28] MEDS: ASPIRIN 81 MG CHEW TAB CHEW SCH (08:28)
[2017-05-28] MEDS: FAMOTIDINE 20 MG TAB TUBE SCH ×2 (08:28→22:45)
[2017-05-28] MEDS: HEPARIN SODIUM - SQ 10,000 UNITS/ML VIAL SQ SCH ×2 (08:29→22:45)
[2017-05-28] MEDS: QUEtiapine FUMARATE 100 MG TAB PO SCH (08:29)
[2017-05-28] MEDS: SODIUM CHLORIDE 0.9% FLUSH 10 ML FLUSH IV FLUSH SCH ×2 (08:29→22:46)
[2017-05-28] MEDS: BUDESONIDE-FORMOTEROL 80/4.5 MCG INHALER INH SCH ×2 (08:29→22:49)
[2017-05-28] MEDS: busPIRone HCL 10 MG TAB PO SCH (08:29)
--- NOTE | 2017-05-28 11:24 | HHI.PR ---
Subjective Remarks 57-year-old female with a medical history significant for morbid obesity, COPD, sleep apnea, diabetes mellitus who was brought to the ER from detention with altered mental status, fevers and was noted to have an elevated PCO2 on ABG PCO2 79 pH 7.19. Patient was intubated and placed on mechanical ventilation by ER physician. After obtaining blood cultures empiric antibiotics were ordered. Patient was accepted for admission by critical care medicine service. When I evaluated the patient she was sedated with Versed, orally intubated on mechanical ventilation. History was obtained by reviewing records and discussion with Dr. Redman. Subjective : 05/22: T-max 101.3. Urine culture revealed gram-negative rods. Patient remains lightly sedated but following commands. Tolerating tube feeds. CPAP trials to be initiated today. 05/23: Afebrile. Urine and blood culture revealed E. coli. Patient on 100 mics of fentanyl for ventilator synchrony. Patient initiated on CPAP trials and continues greater than 8 hours. Plan for continue CPAP trials to out the night with possible SBT parameters in the a.m.. 05/24: Patient wakes up easily. CPAP trial was attempted but failed today due to tachypnea. Continues to have bilateral upper lung wheezing. IV Solu-Medrol started today, inhaled budesonide also started. Chest x-ray shows bilateral mild patchy infiltrates, sputum growing MRSA. Continue scheduled breathing treatments and antibiotics with Zyvox, Azactam 05/25 No events overnight. Sedated with Diprivan and Fentanyl drips. T:100.2 last night 05/26 Patient s/p extubation yesterday. Awake and alert. Afebrile. 05/27 No events overnight. Afebrile. Awake and alert. 05-28 patient is been transferred to our service Discussed with RN and patient Needs aggressive physical therapy and Occupational Therapy Can move out of the ICU We will more than likely need SNF at discharge Objective Vitals Vital Signs Date Time Temp Pulse Resp B/P (MAP) Pulse Ox O2 Delivery O2 Flow Rate FiO2 05/28/17 10:00 77 05/28/17 08:00 97.9 76 18 144/69 (94) 97 05/28/17 08:00 76 05/28/17 07:37 99 Nasal Cannula 3.00 05/28/17 06:00 74 05/28/17 04:00 97.7 71 47 168/76 (106) 97 05/28/17 04:00 71 05/28/17 02:00 83 05/28/17 00:00 98.2 82 147/70 (95) 95 05/28/17 00:00 96 05/27/17 22:00 96 05/27/17 20:00 97.6 79 55 131/74 (93) 98 05/27/17 20:00 79 05/27/17 19:37 99 Nasal Cannula 2.00 05/27/17 18:00 73 05/27/17 16:00 76 05/27/17 16:00 98.4 76 20 131/62 (85) 98 05/27/17 14:00 81 05/27/17 12:00 98.4 69 22 149/76 (100) 99 05/27/17 12:00 69 I/O 05/27/17 05/27/17 05/27/17 05/28/17 05/28/17 05/28/17 07:00 15:00 23:00 07:00 15:00 23:00 Intake Total 1407 ml 1160 ml 580 ml Output Total 1400 ml 1200 ml 1801 ml Balance 7 ml -40 ml -1221 ml Intake Oral 240 ml 960 ml 480 ml IV Total 1167 ml 200 ml 100 ml Output Urine Total 1400 ml 1200 ml 1800 ml Stool Total 0 ml 1 ml Result Diagram: 05/28/17 0322 05/28/17 0322 Other Results Laboratory Tests Test 05/25/17 18:15 05/26/17 03:22 05/27/17 05:58 05/28/17 03:22 Blood Gas Puncture Site RT BRACHIAL Blood Gas Patient Temperature 98.6 Blood Gas HCO3 27 mmol/L Blood Gas Base Excess 2.6 mmol/L Blood Gas Oxygen Saturation 93 % Arterial Blood pH 7.38 Arterial Blood Partial Pressure CO2 47 mmHg Arterial Blood Partial Pressure O2 76 mmHg Arterial Blood Oxygen Content 14.8 Vol % Arterial Blood Carboxyhemoglobin 0.7 % Arterial Blood Methemoglobin 1.2 % Blood Gas Hemoglobin 11.3 G/DL Oxygen Delivery Device NASAL CANNULA Blood Gas Liter Flow 4 L/M White Blood Count 11.4 TH/MM3 9.6 TH/MM3 9.1 TH/MM3 Red Blood Count 4.05 MIL/MM3 4.44 MIL/MM3 4.46 MIL/MM3 Hemoglobin 10.9 GM/DL 11.9 GM/DL 12.2 GM/DL Hematocrit 35.4 % 38.6 % 38.3 % Mean Corpuscular Volume 87.3 FL 86.9 FL 85.9 FL Mean Corpuscular Hemoglobin 27.0 PG 26.8 PG 27.3 PG Mean Corpuscular Hemoglobin Concent 30.9 % 30.9 % 31.7 % Red Cell Distribution Width 16.9 % 16.8 % 16.8 % Platelet Count 213 TH/MM3 201 TH/MM3 228 TH/MM3 Mean Platelet Volume 10.2 FL 10.7 FL 10.7 FL Neutrophils (%) (Auto) 88.8 % 84.7 % 95.3 % Lymphocytes (%) (Auto) 7.5 % 10.4 % 4.0 % Monocytes (%) (Auto) 3.5 % 4.4 % 0.6 % Eosinophils (%) (Auto) 0.0 % 0.1 % 0.0 % Basophils (%) (Auto) 0.2 % 0.4 % 0.1 % Neutrophils # (Auto) 10.1 TH/MM3 8.1 TH/MM3 8.6 TH/MM3 Lymphocytes # (Auto) 0.9 TH/MM3 1.0 TH/MM3 0.4 TH/MM3 Monocytes # (Auto) 0.4 TH/MM3 0.4 TH/MM3 0.1 TH/MM3 Eosinophils # (Auto) 0.0 TH/MM3 0.0 TH/MM3 0.0 TH/MM3 Basophils # (Auto) 0.0 TH/MM3 0.0 TH/MM3 0.0 TH/MM3 CBC Comment DIFF FINAL DIFF FINAL DIFF FINAL Differential Comment Blood Urea Nitrogen 21 MG/DL 21 MG/DL 22 MG/DL Creatinine 0.70 MG/DL 0.61 MG/DL 0.65 MG/DL Random Glucose 99 MG/DL 107 MG/DL 148 MG/DL Total Protein 6.7 GM/DL Albumin 2.3 GM/DL Calcium Level 8.9 MG/DL 9.0 MG/DL 9.1 MG/DL Alkaline Phosphatase 103 U/L Aspartate Amino Transf (AST/SGOT) 19 U/L Alanine Aminotransferase (ALT/SGPT) 18 U/L Total Bilirubin 0.2 MG/DL Sodium Level 153 MEQ/L 147 MEQ/L 144 MEQ/L Potassium Level 4.2 MEQ/L 4.3 MEQ/L 4.1 MEQ/L Chloride Level 120 MEQ/L 115 MEQ/L 112 MEQ/L Carbon Dioxide Level 26.5 MEQ/L 24.9 MEQ/L 24.6 MEQ/L Anion Gap 7 MEQ/L 7 MEQ/L 7 MEQ/L Estimat Glomerular Filtration Rate 86 ML/MIN 101 ML/MIN 94 ML/MIN Phosphorus Level 2.3 MG/DL Imaging Last Impressions Chest X-Ray 05/24/17 0600 Signed Impressions: Service Date/Time: Wednesday, May 24, 2017 03:45 - CONCLUSION: No significant neural change with mid to lower left lung consolidation versus atelectasis and mild patchy right perihilar pulmonary parenchymal opacity. Pablo Powers MD Renal Ultrasound 05/23/17 0000 Signed Impressions: Service Date/Time: Tuesday, May 23, 2017 09:18 - CONCLUSION: No evidence of hydronephrosis.. Ivania Ya MD Objective Remarks GENERAL: Awake alert and oriented 3 talkative and cooperative SKIN: Warm and dry. HEAD: Atraumatic. Normocephalic. EYES: Pupils equal and round. No scleral icterus. No injection or drainage. Extraocular muscles intact ENT: No nasal bleeding or discharge. Mucous membranes pink and moist. Tongue is midline NECK: Trachea midline. No JVD. Supple CARDIOVASCULAR: Regular rate and rhythm. S1-S2 no S3 or S4 RESPIRATORY: No accessory muscle use. Clear to auscultation. Breath sounds equal bilaterally. Decreased breath sounds bilaterally GASTROINTESTINAL: Abdomen soft, non-tender, nondistended. Hepatic and splenic margins not palpable. Morbidly obese MUSCULOSKELETAL: Extremities without clubbing, cyanosis, or edema. No obvious deformities. NEUROLOGICAL: Awake and alert. No obvious cranial nerve deficits. Motor grossly within normal limits. 4 out of 5 muscle strength in the arms and legs. Normal speech. PSYCHIATRIC: Appropriate mood and affect; insight and judgment normal. Medications and IVs Current Medications Etomidate (Amidate Inj) 20 mg ONCE ONCE IV PUSH ; Start 05/21/17 at 01:15; Stop 05/21/17 at 01:16; Status DC Succinylcholine Chloride (Quelicin Inj) 100 mg ONCE ONCE IV PUSH ; Start at 01:15; Stop 05/21/17 at 01:16; Status DC Succinylcholine Chloride (Quelicin Inj) 200 mg STK-MED ONCE .ROUTE ; Start at 01:07; Stop 05/21/17 at 01:08; Status DC Midazolam HCl 100 ml @ As Directed STK-MED ONCE .ROUTE ; Start 05/21/17 at 01:25 ; Stop 05/21/17 at 01:26; Status DC Vancomycin HCl 1000 mg/Sodium Chloride 250 ml @ 250 mls/hr ONCE ONCE IV ; Start 05/21/17 at 01:45; Stop 05/21/17 at 02:44; Status Cancel Aztreonam 2000 mg/ Sodium Chloride 100 ml @ 200 mls/hr ONCE ONCE IV Last administered on 05/21/17at 06:34; Start 05/21/17 at 01:45; Stop 05/21/17 at 02:14; Status DC Sodium Chloride 1,000 ml @ 999 mls/hr BOLUS ONCE IV Last administered on at 01:45; Start 05/21/17 at 01:45; Stop 05/21/17 at 02:45; Status DC Sodium Chloride 1,000 ml @ 42 mls/hr [id number] IV Last administered on 05/21/17at 23:00; Start 05/21/17 at 03:00; Stop 05/22/17 at 09:11; Status DC Sodium Chloride (NS Flush) 2 ml UNSCH PRN IV FLUSH FLUSH AFTER USING IV ACCESS ; Start 05/21/17 at 02:30 Sodium Chloride (NS Flush) 2 ml BID IV FLUSH Last administered on 05/28/17at 08: 29; Start 05/21/17 at 09:00 Acetaminophen (Tylenol) 650 mg Q6H PRN PO PAIN 1-10 AND/OR FEVER >101F Last administered on 05/28/17at 02:09; Start 05/21/17 at 02:30 Albuterol/ Ipratropium (Duoneb Neb) 1 ampule Q6HR NEB NEB Last administered on 05/24/17at 08:06; Start 05/21/17 at 04:00; Stop 05/24/17 at 12:12; Status DC Albuterol/ Ipratropium (Duoneb Neb) 1 ampule Q4HR NEB PRN INH SHORTNESS OF BREATH; Start 05/21/17 at 02:30 Chlorhexidine Gluconate (Peridex 0.12% Liq) 15 ml BID@08,20 MT Last administered on 05/25/17at 07:46; Start 05/21/17 at 08:00 Famotidine (Pepcid) 20 mg BID TUBE Last administered on 05/28/17at 08:28; Start 05/21/17 at 09:00 Miscellaneous Information 1 [id number] Last administered on 05/21/17at 02:30; Start 05/21/17 at 02:30 Chlorhexidine Gluconate (Chlorhexidine 2% Cloth) Taper DAILY@04 TOP Last administered on 05/28/17at 03:14; Start 05/21/17 at 04:00; Stop 05/17/18 at 03:59 Chlorhexidine Gluconate (Chlorhexidine 2% Cloth) 3 pack UNSCH PRN TOP HYGIENIC CARE; Start 05/21/17 at 02:30 Propofol 100 ml @ 4.35 mls/hr TITRATE PRN IV SEDATION Last administered on 05/25at 11:17; Start 05/21/17 at 02:30; Stop 05/25/17 at 15:04; Status DC Fentanyl Citrate 250 ml @ 5 mls/hr TITRATE PRN IV SEDATION Last administered on 05/22/17at 20:44; Start 05/21/17 at 02:30; Stop 05/23/17 at 20:26; Status DC Pharmacy Profile Note 0 ml @ 0 mls/hr UNSCH OTHER ; Start 05/21/17 at 02:45; Stop 05/22/17 at 12:18; Status DC Vancomycin HCl 1250 mg/Sodium Chloride 262.5 ml @ 250 mls/hr Q12H IV ; Start at 13:00; Status UNV Aztreonam 2000 mg/ Sodium Chloride 100 ml @ 200 mls/hr Q6H IV ; Start 05/21/17 at 09:00; Stop 05/21/17 at 09:00; Status DC Azithromycin 500 mg/Sodium Chloride 250 ml @ 250 mls/hr Q24H IV Last administered on 05/22/17at 03:00; Start 05/21/17 at 03:00; Stop 05/22/17 at 12:18; Status DC Chlorhexidine Gluconate (Peridex 0.12% Liq) 15 ml BID@08,20 MT ; Start 05/21/17 at 08:00; Status UNV Vancomycin HCl 2500 mg/Sodium Chloride 525 ml @ 250 mls/hr ONCE ONCE IV Last administered on 05/21/17at 05:55; Start 05/21/17 at 03:00; Stop 05/21/17 at 05:05; Status DC Aztreonam 2000 mg/ Sodium Chloride 100 ml @ 200 mls/hr Q6H IV Last administered on 05/25/17at 04:42; Start 05/21/17 at 12:00; Stop 05/25/17 at 09:49; Status DC Vancomycin HCl 1750 mg/Sodium Chloride 517.5 ml @ 250 mls/hr Q24H IV Last administered on 05/22/17at 05:24; Start 05/22/17 at 06:00; Stop 05/22/17 at 12:18; Status DC Miscellaneous Information SPECIFIC LAB TO BE DRAWN:VANCO TROUGH DATE... ONCE ONCE .XX ; Start 05/24/17 at 05:45; Stop 05/24/17 at 05:45; Status DC Amitriptyline HCl (Elavil) 25 mg AC BREAKFAST PO Last administered on at 06:23; Start 05/22/17 at 07:00 Amitriptyline HCl (Elavil) 75 mg HS PO Last administered on 05/27/17at 20:35; Start 05/21/17 at 21:00 Aspirin (Aspirin Chew) 81 mg DAILY CHEW Last administered on 05/28/17at 08:28; Start 05/22/17 at 09:00 Buspirone HCl (Buspar) 10 mg DAILY PO Last administered on 05/28/17at 08:29; Start 05/22/17 at 09:00 Quetiapine Fumarate (SEROquel) 100 mg DAILY PO Last administered on 05/28/17at 08:29; Start 05/22/17 at 09:00 Quetiapine Fumarate (SEROquel) 200 mg HS PO Last administered on 05/27/17at 20: 35; Start 05/21/17 at 21:00 Miscellaneous (Pill Splitter) 1 ea UNSCH PRN OTHER SEE LABEL COMMENTS; Start at 15:30 Budesonide/ Formoterol Fumarate (Symbicort 80-4.5 Mcg Inh) 2 puff Q12HR INH Last administered on 05/28/17 08:29; Start 05/22/17 at 10:00 Potassium Phosphate 30 mmol/ Sodium Chloride 260 ml @ 43.333 mls/ hr ONCE ONCE IV Last administered on 05/23/17 14:49; Start 05/23/17 at 14:00; Stop at 19:59; Status DC Fentanyl Citrate 250 ml @ 5 mls/hr TITRATE PRN IV SEDATION Last administered on 05/25/17 09:12; Start 05/23/17 at 20:30; Stop 05/25/17 at 15:04; Status DC Linezolid (Zyvox) 600 mg Q12HR PO Last administered on 05/28/17 08:28; Start 05/24/17 at 09:30 Albuterol/ Ipratropium (Duoneb Neb) 1 ampule Q6HR NEB NEB Last administered on 05/25/17 07:33; Start 05/24/17 at 16:00; Stop 05/25/17 at 15:07; Status DC Budesonide (Pulmicort Respule Neb) 0.5 mg Q12HR NEB NEB Last administered on 07:36; Start 05/24/17 at 12:15 Methylprednisolone Sodium Succinate (SoluMEDROL INJ) 60 mg Q8HR IV PUSH Last administered on 05/27/17 12:01; Start 05/24/17 at 14:00; Stop 05/27/17 at 13:24 ; Status DC Heparin Sodium (Porcine) (Heparin Inj) 5,000 units Q12HR SQ Last administered on 05/28/17 08:29; Start 05/25/17 at 08:45 Cefepime HCl 2000 mg/Sodium Chloride 100 ml @ 200 mls/hr Q8H IV Last administered on 05/28/17 10:00; Start 05/25/17 at 10:00 Water (Free Water) 250 ml Q8HR G-TUBE Last administered on 05/25/17 14:00; Start 05/25/17 at 13:00; Stop 05/26/17 at 07:34; Status DC Albuterol/ Ipratropium (Duoneb Neb) 1 ampule Q4HR NEB NEB Last administered on 4/11/18at 11:57; Start 05/25/17 at 16:00; Stop 05/27/17 at 13:24; Status DC Hydralazine HCl (Apresoline Inj) 20 mg Q4H PRN IV PUSH SBP>160, DBP>90 Last administered on 05/26/17at 04:44; Start 05/25/17 at 20:45 Labetalol HCl (Trandate Inj) 10 mg Q4H PRN IV PUSH SBP>160, DBP>90 Last administered on 05/27/17at 01:24; Start 05/25/17 at 20:45 Dextrose 1,000 ml @ 50 mls/hr Q20H IV Last administered on 05/27/17at 04:00; Start 05/26/17 at 08:00; Stop 05/27/17 at 07:32; Status DC Diltiazem HCl (Cardizem) 60 mg Q6HR PO Last administered on 05/28/17at 05:41; Start 05/26/17 at 08:00 Albuterol/ Ipratropium (Duoneb Neb) 1 ampule TID NEB NEB Last administered on 05/28/17at 07:36; Start 05/27/17 at 14:00 Methylprednisolone Sodium Succinate (SoluMEDROL INJ) 40 mg BID IV PUSH Last administered on 05/28/17at 08:28; Start 05/27/17 at 21:00 Mupirocin (Bactroban Nasal 2% Oint) 1 applic BID EACH NARE Last administered on 05/28/17at 08:27; Start 05/27/17 at 21:00; Stop 06/03/17 at 20:59 A/P Problem List: (1) Acute respiratory failure with hypoxia and hypercarbia ICD Code: J96.01 - Acute respiratory failure with hypoxia; J96.02 - Acute respiratory failure with hypercapnia Status: Resolved (2) UTI (urinary tract infection) ICD Code: N39.0 - Urinary tract infection, site not specified Status: Acute (3) PNA (pneumonia) ICD Code: J18.9 - Pneumonia, unspecified organism Status: Acute Assessment and Plan 57-year-old female with: Encephalopathy- resolved Acute respiratory failure -extubated 05/25 Acute COPD exacerbation UTI MRSA pneumonia Morbid obesity COPD Schizophrenia Plan: Neuro: Awake and alert, monitor neuro status and avoid sedatives. 05/21 resumed psych meds-to include amitriptyline, Serquel and Buspar. Gabapentin and Lyrica remain on hold Cardiovascular: Place on Cardizem 60mg Q6 for BP control. Monitor HR and BP keep MAP>65mmHg On ASA 81mg daily Pulmonary: Continue with oxygen keep sats >92% IV Solu-Medrol 60 mg every 8 hours DuoNeb every 6 hours scheduled and as needed Continue Symbicort twice daily Incentive spirometry NIPPV PRN for resp distress GI/liver: Speech eval, diet per speech Bowel regimen Renal/: Monitor renal function, I/O's, electrolytes replacement per protocol. d/c IVF ID: Urine for strep pneumo and Legionella antigen-negative Nasal washings for influenza A and B-negative Urine culture-E. coli Blood culture-E. coli Sputum - MRSA ID following-continue Zyvox and Cefepime Follow up on urine cx 05/25: No growth Heme: Follow CBC Transfused hemoglobin less than 7 Endocrine: SSI for glycemic control if needed. Prophylaxis Pepcid/SCDs/ Heparin SQ Consult PT and Occupational Therapy Discharge Planning Move out of ICU when bed is available Huey Banks DO May 28, 2017 11:24
--- NOTE | 2017-05-28 14:26 | HHI.IDPN ---
Subjective Subjective Remarks Ms. Jason Renee is a 57-year-old female with past medical history significant for morbid obesity, sleep apnea, COPD who has been admitted multiple times to the hospital for presented to the ER over the last several years. She has had one intubation 2015 and yet another in 2017 that I could identify from past medical records. Patient also has a history of MRSA in the sputum as well as ESBL Escherichia coli in the urine in the past. Patient is a resident of [facility] and [facility] and was admitted from the emergency room from the correction for altered mental status. Upon arrival her PCO2 was elevated at 79 and a pH was 7.19. Patient is intubated and placed on mechanical ventilation by the ER physician. It appears based on review of correction records that she was evaluated for possible UTI and pneumonia. Chest x-ray done on May 19, 2017 showed a mild left lower lobe infiltrate. UA was abnormal and patient was started on oral Levaquin and prednisone for possible acute COPD exacerbation. Given her multiple admissions at risk for infections patient had a sepsis workup and blood cultures, sputum cultures and urine with reflex to urine culture. Her urine was found to be cloudy and cultures are pending at the present time. Infectious disease is consulted for evaluation and management of pneumonia and UTI in and cephalic with the patient multiple admissions to the hospital in the recent past. At the time of my evaluation patient is in the ICU currently intubated, on a ventilator and sedated. She is currently not on any vasopressors. Her urine output is fairly okay. She has not diarrhea. She has small amount of white to yellow secretions. Upon examination of her skin folds there was no evidence of any infection. Notes reviewed Temps ok WBC normal Making conversation and taking selfies (photographs) with family. No rash No diarrhea BP ok Urine cultures negative Labs and C/S reviewed Antibiotics Current Medications Medications (Trade) Dose Ordered Sig/Elliot Route Start Time Stop Time Status Last Admin (NS Flush) 2 ml UNSCH PRN IV FLUSH 05/21/17 02:30 (NS Flush) 2 ml BID IV FLUSH 05/21/17 09:00 05/28/17 08:29 (Tylenol) 650 mg Q6H PRN PO 05/21/17 02:30 05/28/17 02:09 (Duoneb Neb) 1 ampule Q4HR NEB PRN INH 05/21/17 02:30 (Peridex 0.12% Liq) 15 ml BID@08,20 MT 05/21/17 08:00 05/25/17 07:46 (Pepcid) 20 mg BID TUBE 05/21/17 09:00 05/28/17 08:28 Miscellaneous Information 1 Q361D XX 05/21/17 02:30 05/21/17 02:30 (Chlorhexidine 2% Cloth) Taper DAILY@04 TOP 05/21/17 04:00 05/17/18 03:59 05/28/17 03:14 (Chlorhexidine 2% Cloth) 3 pack UNSCH PRN TOP 05/21/17 02:30 (Elavil) 25 mg AC BREAKFAST PO 05/22/17 07:00 05/28/17 06:23 (Elavil) 75 mg HS PO 05/21/17 21:00 05/27/17 20:35 (Aspirin Chew) 81 mg DAILY CHEW 05/22/17 09:00 05/28/17 08:28 (Buspar) 10 mg DAILY PO 05/22/17 09:00 05/28/17 08:29 (SEROquel) 100 mg DAILY PO 05/22/17 09:00 05/28/17 08:29 (SEROquel) 200 mg HS PO 05/21/17 21:00 05/27/17 20:35 (Pill Splitter) 1 ea UNSCH PRN OTHER 05/21/17 15:30 (Symbicort 80-4.5 Mcg Inh) 2 puff Q12HR INH 05/22/17 10:00 05/28/17 08:29 (Zyvox) 600 mg Q12HR PO 05/24/17 09:30 05/28/17 08:28 (Pulmicort Respule Neb) 0.5 mg Q12HR NEB NEB 05/24/17 12:15 05/28/17 07:36 (Heparin Inj) 5,000 units Q12HR SQ 05/25/17 08:45 05/28/17 08:29 Cefepime HCl 2000 mg/Sodium Chloride 100 ml @ 200 mls/hr Q8H IV 05/25/17 10:00 05/28/17 10:00 (Apresoline Inj) 20 mg Q4H PRN IV PUSH 4/9/18 20:45 05/26/17 04:44 (Trandate Inj) 10 mg Q4H PRN IV PUSH 05/25/17 20:45 05/27/17 01:24 (Cardizem) 60 mg Q6HR PO 05/26/17 08:00 05/28/17 13:06 (Duoneb Neb) 1 ampule TID NEB NEB 05/27/17 14:00 05/28/17 12:47 (Bactroban Nasal 2% Oint) 1 applic BID EACH NARE 05/27/17 21:00 06/03/17 20:59 05/28/17 08:27 (SoluMEDROL INJ) 40 mg DAILY IV PUSH 05/29/17 09:00 Lines Line sites with no e.o infection Past Medical History Past Medical History Anemia Type 2 diabetes with diabetic neuropathy Nausea vomiting possibly gastroparesis Edema signs 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 Reported history of gastric bypass this remains to be confirmed. Allergies: Coded Allergies: penicillin G (Unverified Allergy, Unknown, 05/21/17) Objective . Vital Signs Date Time Temp Pulse Resp B/P (MAP) Pulse Ox O2 Delivery O2 Flow Rate FiO2 05/28/17 14:00 83 05/28/17 12:00 72 05/28/17 12:00 98.3 72 20 165/73 (103) 97 05/28/17 10:00 77 05/28/17 08:00 97.9 76 18 144/69 (94) 97 05/28/17 08:00 76 05/28/17 07:37 99 Nasal Cannula 3.00 05/28/17 06:00 74 05/28/17 04:00 97.7 71 47 168/76 (106) 97 05/28/17 04:00 71 05/28/17 02:00 83 05/28/17 00:00 98.2 82 147/70 (95) 95 05/28/17 00:00 96 05/27/17 22:00 96 05/27/17 20:00 97.6 79 55 131/74 (93) 98 05/27/17 20:00 79 05/27/17 19:37 99 Nasal Cannula 2.00 05/27/17 18:00 73 05/27/17 16:00 76 05/27/17 16:00 98.4 76 20 131/62 (85) 98 . Laboratory Tests Test 05/27/17 05:58 05/28/17 03:22 White Blood Count 9.6 TH/MM3 9.1 TH/MM3 Red Blood Count 4.44 MIL/MM3 4.46 MIL/MM3 Hemoglobin 11.9 GM/DL 12.2 GM/DL Hematocrit 38.6 % 38.3 % Mean Corpuscular Volume 86.9 FL 85.9 FL Mean Corpuscular Hemoglobin 26.8 PG 27.3 PG Mean Corpuscular Hemoglobin Concent 30.9 % 31.7 % Red Cell Distribution Width 16.8 % 16.8 % Platelet Count 201 TH/MM3 228 TH/MM3 Mean Platelet Volume 10.7 FL 10.7 FL Neutrophils (%) (Auto) 84.7 % 95.3 % Lymphocytes (%) (Auto) 10.4 % 4.0 % Monocytes (%) (Auto) 4.4 % 0.6 % Eosinophils (%) (Auto) 0.1 % 0.0 % Basophils (%) (Auto) 0.4 % 0.1 % Neutrophils # (Auto) 8.1 TH/MM3 8.6 TH/MM3 Lymphocytes # (Auto) 1.0 TH/MM3 0.4 TH/MM3 Monocytes # (Auto) 0.4 TH/MM3 0.1 TH/MM3 Eosinophils # (Auto) 0.0 TH/MM3 0.0 TH/MM3 Basophils # (Auto) 0.0 TH/MM3 0.0 TH/MM3 CBC Comment DIFF FINAL DIFF FINAL Differential Comment Laboratory Tests Test 05/27/17 05:58 05/28/17 03:22 Blood Urea Nitrogen 21 MG/DL 22 MG/DL Creatinine 0.61 MG/DL 0.65 MG/DL Random Glucose 107 MG/DL 148 MG/DL Calcium Level 9.0 MG/DL 9.1 MG/DL Sodium Level 147 MEQ/L 144 MEQ/L Potassium Level 4.3 MEQ/L 4.1 MEQ/L Chloride Level 115 MEQ/L 112 MEQ/L Carbon Dioxide Level 24.9 MEQ/L 24.6 MEQ/L Anion Gap 7 MEQ/L 7 MEQ/L Estimat Glomerular Filtration Rate 101 ML/MIN 94 ML/MIN Phosphorus Level 2.3 MG/DL Imaging Chest X-Ray 05/24/17 0600 Signed Impressions: Service Date/Time: Wednesday, May 24, 2017 03:45 - CONCLUSION: No significant neural change with mid to lower left lung consolidation versus atelectasis and mild patchy right perihilar pulmonary parenchymal opacity. Pablo Powers MD Renal Ultrasound 05/23/17 0000 Signed Impressions: Service Date/Time: Tuesday, May 23, 2017 09:18 - CONCLUSION: No evidence of hydronephrosis.. Ivania Ya MD Chest X-Ray 05/21/17 0103 Signed Impressions: Service Date/Time: May 01:26 - CONCLUSION: Satisfactory support line and tube positioning. Hussein Trejo MD Physical Exam GENERAL: Morbidly Obese patient, in no apparent distress. Awake. SKIN: No rashes, ecchymoses or lesions. Cool and dry. HEAD: Atraumatic. Normocephalic. No temporal or scalp tenderness. EYES: Pupils equal round and reactive. No scleral icterus. No injection or drainage. ENT: gross exam normal. NECK: Trachea midline. Supple, nontender, no meningeal signs. CARDIOVASCULAR: Heart sounds distant but audible. No murmur appreciated. RESPIRATORY: AE improved. Still decreased in bases. Obese. No adv sounds. GASTROINTESTINAL: Abdomen soft, nondistended, obese. Colostomy LLQ, pink stoma , soft brown stool in bag. GENITOURINARY: Ocampo catheter in place with yellow urine in bag. MUSCULOSKELETAL: Extremities without clubbing, cyanosis. Pedal edema. NEUROLOGICAL: No obvious focal deficit. Psych could not be assessed IV line sites with no evidence of infection. Assessment & Plan Remarks Sepsis present on admission, better New fevers ? drug fever. - better E coli UTI E.coli bacteremia. UTI present on admission. History of ESBL in the past. Multiple hospitalizations in the past. MRSA pneumonia Respiratory failure, tolerating extubation UTI present on admission. History of ESBL in the past. Multiple hospitalizations in the past. Acute metabolic encephalopathy likely secondary to CO2 narcosis as well as infection Acute COPD exacerbation Morbid obesity History of depression and other psychiatric disorders Diabetes with diabetic neuropathy Recommendation: DC Cefepime IV Continue zyvox oral (stop date in EMAR) Start Levaquin oral (stop date in EMAR) Follow CXR ordered. IF continues to do well ok to discharge from ID standpoint back to [facility] when cleared by other MDs. Will sign off please call back if any change in clinical condition or questions. Ani Sanchez MD May 28, 2017 14:26
[2017-05-28] MEDS: LEVOFLOXACIN 750 MG TAB PO SCH (15:30)
[2017-05-28] MEDS: AMITRIPTYLINE HCL 75 MG TAB PO SCH (22:44)
[2017-05-28] MEDS: QUEtiapine FUMARATE 200 MG TAB PO SCH (22:45)
[2017-05-29 01:32] VITALS: BP 138/71; PULSE 78; RESP 18; TEMP 98; O2SAT 96
[2017-05-29] MEDS: CHLORHEXIDINE GLUCONATE 2 % 1 PACK (2 CLOTHS) TOP SCH (04:00)
[2017-05-29 04:30] VITALS: BP 127/61; PULSE 75; RESP 18; TEMP 97.8; O2SAT 96
[2017-05-29] MEDS: DILTIAZEM HCL 60 MG TAB PO SCH ×2 (05:47→12:36)
[2017-05-29] MEDS: ACETAMINOPHEN 325 MG TAB PO PRN ×2 (05:48→09:14)
[2017-05-29] MEDS: RESP: BUDESONIDE 0.5 MG/2 ML NEB NEB SCH (07:56)
[2017-05-29] MEDS: RESP: ALBUTEROL 2.5 MG/IPRATROPIUM 0.5 MG NEB (SCH) NEB ×2 (07:56→12:06)
[2017-05-29 07:58] VITALS: O2SAT 99
[2017-05-29 08:00] VITALS: BP 139/67; PULSE 72; RESP 19; TEMP 97.3; O2SAT 97
[2017-05-29] MEDS: CHLORHEXIDINE 0.12% (ORAL KIT) 15 ML CUP MT SCH (08:00)
[2017-05-29] MEDS: SODIUM CHLORIDE 0.9% FLUSH 10 ML FLUSH IV FLUSH SCH (08:03)
[2017-05-29 08:24] LABS: AUTOMATED NEUTROPHIL # 6.6 TH/MM3 (1.8-7.7); BASOPHIL % 0.2 % (0.0-2.0); EOSINOPHIL % 0.2 % (0.0-4.0); HEMATOCRIT 41.2 % (35.0-46.0); HEMOGLOBIN 12.9 GM/DL (11.6-15.3); LYMPH % 14.1 % (9.0-44.0); LYMPHOCYTE # 1.2 TH/MM3 (1.0-4.8); MEAN CELL VOLUME 86.1 FL (80.0-100.0); MEAN CORPUSCULAR HEMOGLOBIN 26.9 PG (27.0-34.0); MEAN CORPUSCULAR HGB CONC 31.3 % (32.0-36.0); MEAN PLATELET VOLUME 10.2 FL (7.0-11.0); MONO % 5.9 % (0.0-8.0); MONOCYTE # 0.5 TH/MM3 (0-0.9); NEUT % 79.6 % (16.0-70.0); PLATELET COUNT 209 TH/MM3 (150-450); RED BLOOD COUNT 4.78 MIL/MM3 (4.00-5.30); RED CELL DISTRIBUTION WIDTH 16.8 % (11.6-17.2); WHITE BLOOD COUNT 8.3 TH/MM3 (4.0-11.0)
[2017-05-29] MEDS: MUPIROCIN 2% OINT 1 APPLIC/GM SYR EACH NARE SCH (09:00)
[2017-05-29] MEDS ORDERED: methylPREDNISolone SOD SUCC 40 MG/1 ML VIAL IV PUSH SCH (09:00)
[2017-05-29] MEDS: QUEtiapine FUMARATE 100 MG TAB PO SCH (09:03)
[2017-05-29] MEDS: LINEZOLID 600 MG TAB PO SCH (09:03)
[2017-05-29] MEDS: busPIRone HCL 10 MG TAB PO SCH (09:03)
[2017-05-29] MEDS: AMITRIPTYLINE HCL 25 MG TAB PO SCH (09:03)
[2017-05-29] MEDS: ASPIRIN 81 MG CHEW TAB CHEW SCH (09:03)
[2017-05-29] MEDS: FAMOTIDINE 20 MG TAB TUBE SCH (09:03)
[2017-05-29] MEDS: HEPARIN SODIUM - SQ 10,000 UNITS/ML VIAL SQ SCH (09:04)
[2017-05-29] MEDS: BUDESONIDE-FORMOTEROL 80/4.5 MCG INHALER INH SCH (09:04)
[2017-05-29 09:09] LABS: ALBUMIN 2.5 GM/DL (3.4-5.0); ALKALINE PHOSPHATASE 83 U/L (45-117); ALT (GPT) 15 U/L (10-53); AST (GOT) 11 U/L (15-37); BICARBONATE 27.1 MEQ/L (21.0-32.0); BLOOD UREA NITROGEN 25 MG/DL (7-18); CHLORIDE 112 MEQ/L (98-107); CREATININE 0.59 MG/DL (0.50-1.00); FREE T4 1.01 NG/DL (0.76-1.46); GLOMERULAR FILTRATION RATE 105 ML/MIN (>89); GLUCOSE,RANDOM 83 MG/DL (74-106); MAGNESIUM 2.4 MG/DL (1.5-2.5); PHOSPHORUS 2.2 MG/DL (2.5-4.9); SODIUM (NA) 145 MEQ/L (136-145); TOTAL BILIRUBIN ADULT 0.2 MG/DL (0.2-1.0); TOTAL PROTEIN 6.4 GM/DL (6.4-8.2)
[2017-05-29] MEDS: LEVOFLOXACIN 750 MG TAB PO SCH (10:02)
--- NOTE | 2017-05-29 11:48 | HHI.DS ---
Discharge Summary Admission Date May 21, 2017 at 02:25 Discharge Date: May 29, 2017 Admitting Diagnosis Sepsis, UTI, Hypercapneic Respiratory Failure. (1) Acute respiratory failure with hypoxia and hypercarbia ICD Code: J96.01 - Acute respiratory failure with hypoxia; J96.02 - Acute respiratory failure with hypercapnia Status: Resolved (2) UTI (urinary tract infection) ICD Code: N39.0 - Urinary tract infection, site not specified Status: Acute (3) PNA (pneumonia) ICD Code: J18.9 - Pneumonia, unspecified organism Status: Acute Procedures intubation/extubation Brief History - From Admission HPI: 57-year-old female with a medical history significant for morbid obesity, COPD, sleep apnea, diabetes mellitus who was brought to the ER from [facility] with altered mental status, fevers and was noted to have an elevated PCO2 on ABG PCO2 79 pH 7.19. Patient was intubated and placed on mechanical ventilation by ER physician. After obtaining blood cultures empiric antibiotics were ordered. Patient was accepted for admission by critical care medicine service. When I evaluated the patient she was sedated with Versed, orally intubated on mechanical ventilation. History was obtained by reviewing records and discussion with Dr. Redman. Travel History International Travel<30 days: No Contact w/Intl Traveler<30days: No Traveled to known affect area: No History PFSH Past Medical History Anemia: Yes Asthma: No (UNABLE TO OBTAIN) Anxiety: Yes Depression: Yes Cancer: No Cardiovascular Problems: No (UNABLE TO OBTAIN) COPD: Yes (UNABLE TO OBTAIN) Cerebrovascular Accident: No (UNABLE TO OBTAIN) Diabetes: Yes Patient Takes Glucophage: No Diminished Hearing: No Diverticulitis: Yes Endocrine: No Gastrointestinal Disorders: Yes GERD: Yes (UNABLE TO OBTAIN) Genitourinary: No (UNABLE TO OBTAIN) Headaches: No (UNABLE TO OBTAIN) Hiatal Hernia: No (UNABLE TO OBTAIN) Herniated Disk: Yes Implanted Vascular Access Dvce: Yes Kidney Stones: No (UNABLE TO OBTAIN) Musculoskeletal: Yes (UNABLE TO OBTAIN) Neurologic: Yes (UNABLE TO OBTAIN) Psychiatric: Yes Reproductive: No (UNABLE TO OBTAIN) Respiratory: Yes (UNABLE TO OBTAIN) Immunizations Current: Yes Migraines: No (UNABLE TO OBTAIN) Renal Failure: No (UNABLE TO OBTAIN) Seizures: No (UNABLE TO OBTAIN) Sleep Apnea: Yes Thyroid Disease: No Ulcer: No (UNABLE TO OBTAIN) Tetanus Vaccination: Unknown Influenza Vaccination: Yes Past Surgical History Abdominal Surgery: Yes (COLOSTOMY; GASTRIC BYPASS) Cardiac Surgery: No (UNABLE TO OBTAIN) Ear Surgery: No (UNABLE TO OBTAIN) Endocrine Surgery: No (UNABLE TO OBTAIN) Eye Surgery: No (UNABLE TO OBTAIN) Genitourinary Surgery: No (UNABLE TO OBTAIN) Gynecologic Surgery: No (UNABLE TO OBTAIN) Neurologic Surgery: No (UNABLE TO OBTAIN) Oral Surgery: No (UNABLE TO OBTAIN) Thoracic Surgery: No (UNABLE TO OBTAIN) Other Surgery: Yes (UNABLE TO OBTAIN) Social History Alcohol Use: No Tobacco Use: No Substance Use: No Allergies-Medications Allergies-Medications (Allergen,Severity, Reaction): Coded Allergies: penicillin G (Unverified Allergy, Unknown, 05/21/17) Reported Meds & Prescriptions Reported Meds & Active Scripts Active Levaquin (Levofloxacin) 750 Mg Tablet 750 Mg PO DAILY Prednisone (48) 10 mg tab Dose Pack (Prednisone) 10 Mg Dspk 10 Mg PO DIRECTED Symbicort Inh (Budesonide/Formoterol Fumarate) 80-4.5 Mcg/Act Aero 2 Puff INH Q12HR Duoneb (Ipratropium-Albuterol Neb) 0.5-2.5 Mg/3 Ml Neb 1 Ampule INH Q6HR PRN 7 Days Reported Aplisol (Tuberculin Ppd) 5 Tub. Unit/0.1 Ml Inj Quetiapine (Quetiapine Fumarate) 200 Mg Tab 200 Mg PO HS Quetiapine (Quetiapine Fumarate) 100 Mg Tab 100 Mg PO DAILY Neurontin (Gabapentin) 300 Mg Cap 1,200 Mg PO TID Ativan (Lorazepam) 0.5 Mg Tab 0.5 Mg PO Q12HR PRN Amitriptyline (Amitriptyline HCl) 25 Mg Tab 25 Mg PO AC BREAKFAST Albuterol Neb (Albuterol Sulfate) 2.5 Mg/3 Ml Neb 2.5 Mg NEB Q8HR NEB PRN Aspirin 81 Mg Chew 81 Mg CHEW DAILY Amitriptyline (Amitriptyline HCl) 50 Mg Tab 75 Mg PO HS CBC/BMP: 05/29/17 0700 05/29/17 0700 Significant Findings Laboratory Tests Test 05/27/17 05:58 05/28/17 03:22 05/29/17 07:00 Mean Corpuscular Hemoglobin 26.8 PG (27.0-34.0) 26.9 PG (27.0-34.0) Mean Corpuscular Hemoglobin Concent 30.9 % (32.0-36.0) 31.7 % (32.0-36.0) 31.3 % (32.0-36.0) Neutrophils (%) (Auto) 84.7 % (16.0-70.0) 95.3 % (16.0-70.0) 79.6 % (16.0-70.0) Neutrophils # (Auto) 8.1 TH/MM3 (1.8-7.7) 8.6 TH/MM3 (1.8-7.7) Blood Urea Nitrogen 21 MG/DL (7-18) 22 MG/DL (7-18) 25 MG/DL (7-18) Random Glucose 107 MG/DL (74-106) 148 MG/DL (74-106) Sodium Level 147 MEQ/L (136-145) Chloride Level 115 MEQ/L (98-107) 112 MEQ/L (98-107) 112 MEQ/L (98-107) Lymphocytes (%) (Auto) 4.0 % (9.0-44.0) Lymphocytes # (Auto) 0.4 TH/MM3 (1.0-4.8) Phosphorus Level 2.3 MG/DL (2.5-4.9) 2.2 MG/DL (2.5-4.9) Albumin 2.5 GM/DL (3.4-5.0) Aspartate Amino Transf (AST/SGOT) 11 U/L (15-37) Thyroid Stimulating Hormone 3rd Gen 5.200 uIU/ML (0.358-3.740) Imaging Last Impressions Chest X-Ray 05/24/17 0600 Signed Impressions: Service Date/Time: Wednesday, May 24, 2017 03:45 - CONCLUSION: No significant neural change with mid to lower left lung consolidation versus atelectasis and mild patchy right perihilar pulmonary parenchymal opacity. Pablo Powers MD Renal Ultrasound 05/23/17 0000 Signed Impressions: Service Date/Time: Tuesday, May 23, 2017 09:18 - CONCLUSION: No evidence of hydronephrosis.. Ivania Ya MD PE at Discharge GENERAL: Awake alert and oriented, morbidly obese, talkative and cooperative CARDIOVASCULAR: Regular rate and rhythm. S1-S2 no S3 or S4 RESPIRATORY: No accessory muscle use. Clear to auscultation. Breath sounds equal bilaterally. Decreased breath sounds bilaterally GASTROINTESTINAL: Abdomen soft, obese, non-tender, nondistended. Hepatic and splenic margins not palpable. Morbidly obese MUSCULOSKELETAL: Extremities without clubbing, cyanosis, or edema. No obvious deformities. NEUROLOGICAL: Awake and alert. No obvious cranial nerve deficits. Motor grossly within normal limits. 4 out of 5 muscle strength in the arms and legs. Normal speech. PSYCHIATRIC: Appropriate mood and affect; insight and judgment normal. Hospital Course 57-year-old female with: Encephalopathy- resolved Acute respiratory failure -extubated 05/25 Acute COPD exacerbation resolving UTI MRSA pneumonia Morbid obesity COPD Schizophrenia Plan: Neuro: Awake and alert, monitor neuro status and avoid sedatives. 05/21 resumed psych meds-to include amitriptyline, Serquel and Buspar. Gabapentin and Lyrica remain on hold Cardiovascular: Place on Cardizem 60mg Q6 for BP control. Monitor HR and BP keep MAP>65mmHg On ASA 81mg daily Pulmonary: Continue with oxygen keep sats >92% IV Solu-Medrol 60 mg every 8 hours DuoNeb every 6 hours scheduled and as needed Continue Symbicort twice daily Incentive spirometry NIPPV PRN for resp distress GI/liver: Speech eval, diet per speech Bowel regimen Renal/: Monitor renal function, I/O's, electrolytes replacement per protocol. d/c IVF ID: Urine for strep pneumo and Legionella antigen-negative Nasal washings for influenza A and B-negative Urine culture-E. coli Blood culture-E. coli Sputum - MRSA ID following-received IV abx Zyvox and Cefepime switched to PO antibiotic zyvox and levaquin per ID recommendations and DC on Po antibiotic Follow up on urine cx 05/25: No growth Heme: Follow CBC Transfused hemoglobin less than 7 Endocrine: SSI for glycemic control if needed. Prophylaxis Pepcid/SCDs/ Heparin SQ Consult PT and Occupational Therapy Discharge Planning DC to SNF in stable condition to follow up as OP with PCP and consultants Pt Condition on Discharge: Stable Discharge Disposition: Discharge to SNF Discharge Time: > 30 minutes Discharge Instructions DIET: Follow Instructions for: Heart Healthy Diet, Diabetic Diet Speech Therapy-Diet Recommends: Mechanical Soft, Chopped Meat w/Gravy Activities you can perform: Regular-No Restrictions Follow up Referrals: PCP Follow-up - 2-3 Days Pulmonology - 1 Week New Medications: Diltiazem (Cardizem) 60 Mg Tab 60 MG PO Q6HR for Blood Pressure Management, #120 TAB Linezolid (Zyvox) 600 Mg Tab 600 MG PO Q12HR for infection , #12 TAB Mupirocin Nasal Oint (Bactroban Nasal Oint) 2% Oint 1 APPLIC EACH NARE BID for nasal mrsa , #1 TUBE Single-use tubes. end date of use 06/03/17 apply intranasally bid Continued Medications: Albuterol Neb (Albuterol Neb) 2.5 Mg/3 Ml Neb 2.5 MG NEB Q8HR NEB PRN for SHORTNESS OF BREATH, NEBULE Amitriptyline (Amitriptyline) 50 Mg Tab 75 MG PO HS for Control Depression, TAB Amitriptyline (Amitriptyline) 25 Mg Tab 25 MG PO AC BREAKFAST, TAB Aspirin (Aspirin) 81 Mg Chew 81 MG CHEW DAILY, TAB Budesonide-Formoterol Inh (Symbicort Inh) 80-4.5 Mcg/Act Aero 2 PUFF INH Q12HR for Asthma Management, #1 INHALER 0 Refills Buspirone (Buspirone) 10 Mg Tab 10 MG PO DAILY for Anxiety, TAB 0 Refills Gabapentin (Neurontin) 300 Mg Cap 1200 MG PO TID, #90 CAP 0 Refills Ipratropium-Albuterol Neb (Duoneb) 0.5-2.5 Mg/3 Ml Neb 1 AMPULE INH Q6HR PRN for WHEEZING for 7 Days, ML Levofloxacin (Levaquin) 750 Mg Tablet 750 MG PO DAILY for Infection, #5 TAB 0 Refills Lorazepam (Ativan) 0.5 Mg Tab 0.5 MG PO Q12HR PRN for ANXIETY AND/OR AGITATION, #10 TAB 0 Refills (This prescription has been renewed) Prednisone (48) 10 mg tab Dose Pack (Prednisone (48) 10 mg tab Dose Pack) 10 Mg Dspk 10 MG PO DIRECTED for Inflammation, #1 DSPK 0 Refills Pregabalin (Lyrica) 75 Mg Cap 75 MG PO BID, #60 CAP 0 Refills Quetiapine (Quetiapine) 100 Mg Tab 100 MG PO DAILY, #30 TAB 0 Refills Quetiapine (Quetiapine) 200 Mg Tab 200 MG PO HS, #30 TAB 0 Refills Lala Dsouza MD May 29, 2017 11:48
--- NOTE | 2017-05-29 11:48 | HHI.PR ---
Subjective Remarks In bed appears in nad. She improved significancy. No fever or chills.No cough. No n/v/d/c. Plan to DC to SNF. Objective Vitals Vital Signs Date Time Temp Pulse Resp B/P (MAP) Pulse Ox O2 Delivery O2 Flow Rate FiO2 05/29/17 08:00 97.3 72 19 139/67 (91) 97 05/29/17 07:58 99 Nasal Cannula 3.00 05/29/17 04:30 97.8 75 18 127/61 (83) 96 05/29/17 01:32 98.0 78 18 138/71 (93) 96 05/28/17 23:49 72 05/28/17 20:08 97 Nasal Cannula 3.00 05/28/17 20:00 98.2 73 18 134/61 (85) 96 05/28/17 19:44 80 05/28/17 16:03 98.3 79 20 139/69 (92) 97 05/28/17 14:00 83 05/28/17 12:00 72 05/28/17 12:00 98.3 72 20 165/73 (103) 97 I/O 05/28/17 05/28/17 05/28/17 05/29/17 05/29/17 05/29/17 07:00 15:00 23:00 07:00 15:00 23:00 Intake Total 580 ml 460 ml 240 ml Output Total 1801 ml 500 ml Balance -1221 ml 460 ml -260 ml Intake Oral 480 ml 360 ml 240 ml IV Total 100 ml 100 ml Output Urine Total 1800 ml 500 ml Stool Total 1 ml # Voids 2 1 Result Diagram: 05/29/17 0700 05/29/17 0700 Imaging Last Impressions Chest X-Ray 05/24/17 0600 Signed Impressions: Service Date/Time: Wednesday, May 24, 2017 03:45 - CONCLUSION: No significant neural change with mid to lower left lung consolidation versus atelectasis and mild patchy right perihilar pulmonary parenchymal opacity. Pablo Powers MD Renal Ultrasound 05/23/17 0000 Signed Impressions: Service Date/Time: Tuesday, May 23, 2017 09:18 - CONCLUSION: No evidence of hydronephrosis.. Ivania Ya MD Objective Remarks GENERAL: Awake alert and oriented, morbidly obese, talkative and cooperative CARDIOVASCULAR: Regular rate and rhythm. S1-S2 no S3 or S4 RESPIRATORY: No accessory muscle use. Clear to auscultation. Breath sounds equal bilaterally. Decreased breath sounds bilaterally GASTROINTESTINAL: Abdomen soft, obese, non-tender, nondistended. Hepatic and splenic margins not palpable. Morbidly obese MUSCULOSKELETAL: Extremities without clubbing, cyanosis, or edema. No obvious deformities. NEUROLOGICAL: Awake and alert. No obvious cranial nerve deficits. Motor grossly within normal limits. 4 out of 5 muscle strength in the arms and legs. Normal speech. PSYCHIATRIC: Appropriate mood and affect; insight and judgment normal. A/P Problem List: (1) Acute respiratory failure with hypoxia and hypercarbia ICD Code: J96.01 - Acute respiratory failure with hypoxia; J96.02 - Acute respiratory failure with hypercapnia Status: Resolved (2) UTI (urinary tract infection) ICD Code: N39.0 - Urinary tract infection, site not specified Status: Acute (3) PNA (pneumonia) ICD Code: J18.9 - Pneumonia, unspecified organism Status: Acute Assessment and Plan 57-year-old female with: Encephalopathy- resolved Acute respiratory failure -extubated 05/25 Acute COPD exacerbation resolving UTI MRSA pneumonia Morbid obesity COPD Schizophrenia Plan: Neuro: Awake and alert, monitor neuro status and avoid sedatives. 05/21 resumed psych meds-to include amitriptyline, Serquel and Buspar. Gabapentin and Lyrica remain on hold Cardiovascular: Place on Cardizem 60mg Q6 for BP control. Monitor HR and BP keep MAP>65mmHg On ASA 81mg daily Pulmonary: Continue with oxygen keep sats >92% IV Solu-Medrol 60 mg every 8 hours DuoNeb every 6 hours scheduled and as needed Continue Symbicort twice daily Incentive spirometry NIPPV PRN for resp distress GI/liver: Speech eval, diet per speech Bowel regimen Renal/: Monitor renal function, I/O's, electrolytes replacement per protocol. d/c IVF ID: Urine for strep pneumo and Legionella antigen-negative Nasal washings for influenza A and B-negative Urine culture-E. coli Blood culture-E. coli Sputum - MRSA ID following-received IV abx Zyvox and Cefepime switched to PO antibiotic per ID recommendations and DC on Po antibiotic Follow up on urine cx 05/25: No growth Heme: Follow CBC Transfused hemoglobin less than 7 Endocrine: SSI for glycemic control if needed. Prophylaxis Pepcid/SCDs/ Heparin SQ Consult PT and Occupational Therapy Discharge Planning DC to SNF in stable condition to follow up as OP with PCP and consultants Lala Dsouza MD May 29, 2017 11:48
[2017-05-29] MEDS ORDERED: BACTOIN EACH NARE (11:54)
[2017-05-29] MEDS ORDERED: ZYVO600T PO (11:54)
[2017-05-29] MEDS ORDERED: LORA-392 PO (11:54)
[2017-05-29] MEDS ORDERED: DILT60TA33 PO (11:54)
[2017-05-29 12:00] VITALS: BP 153/70; PULSE 80; RESP 20; TEMP 97.4; O2SAT 96
--- NOTE | 2017-05-29 15:50 | ECHRPT ---
Indication: Pul Htn CONCLUSIONS Normal left ventricular size. Wall thickness is normal. The left ventricular systolic function is no rmal with an estimated ejection fraction in the range of 55-60%. No regional wall motion abnormalities are presen t. Trace mitral valve regurgitation. BP: / HR: Rhythm: MEASUREMENTS (Male / Female) Normal Values Technical Quality: 2D ECHO LV Diastolic Diameter PLAX 5.2 cm 4.2 - 5.9 / 3.9 - 5.3 cm LV Systolic Diameter PLAX 3.9 cm IVS Diastolic Thickness 1.0 cm 0.6 - 1.0 / 0.6 - 0.9 cm LVPW Diastolic Thickness 0.5 cm 0.6 - 1.0 / 0.6 - 0.9 cm LV Relative Wall Thickness 0.3 DOPPLER Mitral E Point Velocity 89.0 cm/s Mitral A Point Velocity 131.0 cm/s Mitral E to A Ratio 0.7 TR Peak Velocity 279.5 cm/s TR Peak Gradient 31.2 mmHg FINDINGS LEFT VENTRICLE Normal left ventricular size. Wall thickness is normal. The left ventricular systolic function is no rmal with an estimated ejection fraction in the range of 55-60%. No regional wall motion abnormalities are presen t. RIGHT VENTRICLE Normal right ventricular size and systolic function. LEFT ATRIUM The left atrial size is normal. RIGHT ATRIUM The right atrial size is normal. ATRIAL SEPTUM Normal atrial septal thickness without atrial level shunting by limited color doppler interrogation. AORTA The aortic root and proximal ascending aorta are normal in size on limited imaging. MITRAL VALVE Trace mitral valve regurgitation. AORTIC VALVE Trileaflet aortic valve. No aortic valve stenosis or regurgitation. TRICUSPID VALVE Structurally normal tricuspid valve. No tricuspid valve stenosis or regurgitation. PULMONARY VALVE The pulmonary valve is not well visualized. VESSELS The inferior vena cava is normal in size. PERICARDIUM No pericardial effusion. Jonathon Childs MD (Electronically Signed) Final Date:29 May 2017 15:50
[2017-05-29 16:50] LABS: HEMOGLOBIN A1C 5.5 % (4.3-6.0)
== END 2017-05-29 14:37 | DRG 870 ==
LOC: NEPE 00:48 → NEDA 02:25 → HIMW 04:15 → N04B 05-28 15:05
PROVIDERS: ADMIT Hospitalist; ATTEND Hospitalist
PROC: 5A1955Z Respiratory Ventilation, Greater than 96 Consecutive Hours (ICD-10-PCS; principal; 2017-05-21)
PROC: 0BH17EZ Insertion of Endotracheal Airway into Trachea, Via Natural or Artificial Opening (ICD-10-PCS; 2017-05-21)
PROC: 0T9B70Z Drainage of Bladder with Drainage Device, Via Natural or Artificial Opening (ICD-10-PCS; 2017-05-21)
DX: A41.9 Sepsis, unspecified organism (principal); J69.0 Pneumonitis due to inhalation of food and vomit; G93.41 Metabolic encephalopathy; J44.0 Chronic obstructive pulmonary disease with (acute) lower respiratory infection; J96.01 Acute respiratory failure with hypoxia; J96.02 Acute respiratory failure with hypercapnia; E87.2 Acidosis; K31.84 Gastroparesis; J15.212 Pneumonia due to Methicillin resistant Staphylococcus aureus; E11.40 Type 2 diabetes mellitus with diabetic neuropathy, unspecified; J44.1 Chronic obstructive pulmonary disease with (acute) exacerbation; Z68.43 Body mass index [BMI] 50.0-59.9, adult; N39.0 Urinary tract infection, site not specified; E66.01 Morbid (severe) obesity due to excess calories; R65.20 Severe sepsis without septic shock; Z88.0 Allergy status to penicillin; F41.9 Anxiety disorder, unspecified; F32.9 Major depressive disorder, single episode, unspecified; G47.33 Obstructive sleep apnea (adult) (pediatric); K21.9 Gastro-esophageal reflux disease without esophagitis; Z98.84 Bariatric surgery status; Z93.3 Colostomy status; F20.9 Schizophrenia, unspecified; Z86.14 Personal history of Methicillin resistant Staphylococcus aureus infection; E11.43 Type 2 diabetes mellitus with diabetic autonomic (poly)neuropathy; Z79.84 Long term (current) use of oral hypoglycemic drugs; I10 Essential (primary) hypertension; E56.9 Vitamin deficiency, unspecified; Z87.01 Personal history of pneumonia (recurrent); Z87.891 Personal history of nicotine dependence; B96.20 Unspecified Escherichia coli [E. coli] as the cause of diseases classified elsewhere
CPT/HCPCS: 31500; 36600; 51702; 71045; 76775; 76937; 80048; 80053; 81001; 82550; 82805; 82948; 83036; 83605; 83690; 83735; 84100; 84439; 84443; 84484; 84702; 85025; 85027; 85610; 85730; 86403; 87040; 87070; 87077; 87086; 87147; 87186; 87205; 87449; 87641; 87804; 93005; 93306; 94002; 94003; 94150; 94640; 94664; 96360; J0330; J0360; J0456; J0692; J1644; J2250; J2920; J2930; J3010; J3370; J7030; J7040; J7050; J7070; J7626

== ENCOUNTER 2017-08-01 02:04 | Inpatient (IN) | payer OTHER ==
[2017-08-01] VITALS (26 sets, daily range): BP systolic 109–184; BP diastolic 50–93; PULSE 75–111; RESP 20–25; TEMP 97.8–98.3; O2SAT 87–100
[~2017-08-01] VITALS: Ht 162.6 cm; Wt 144.0 kg
[~2017-08-01 02:04] MED LIST changes: -APLI5INJ2; +BACTOIN EACH NARE; +BUSP10TA PO; +DILT60TA33 PO; +LYRI75CA PO; +ZYVO600T PO
[2017-08-01] MEDS ORDERED: methylPREDNISolone SOD SUCC 125 MG/2 ML VIAL ONE (02:06)
[2017-08-01] MEDS ORDERED: ETOMIDATE 40 MG/20 ML VIAL ONE (02:06)
[2017-08-01] MEDS ORDERED: fentaNYL CITRATE 250 MCG/5 ML AMP ONE (02:08)
[2017-08-01] MEDS ORDERED: KETAMINE HCL 500 MG/5 ML VIAL ONE (02:08)
[2017-08-01 02:30] LABS: AUTOMATED NEUTROPHIL # 7.3 TH/MM3 (1.8-7.7); BASOPHIL # 0.1 TH/MM3 (0-0.2); BASOPHIL % 0.6 % (0.0-2.0); EOSINOPHIL # 0.2 TH/MM3 (0-0.4); EOSINOPHIL % 1.9 % (0.0-4.0); HEMATOCRIT 40.2 % (35.0-46.0); HEMOGLOBIN 12.7 GM/DL (11.6-15.3); LYMPH % 15.6 % (9.0-44.0); LYMPHOCYTE # 1.5 TH/MM3 (1.0-4.8); MEAN CELL VOLUME 87.9 FL (80.0-100.0); MEAN CORPUSCULAR HEMOGLOBIN 27.7 PG (27.0-34.0); MEAN CORPUSCULAR HGB CONC 31.5 % (32.0-36.0); MEAN PLATELET VOLUME 10.3 FL (7.0-11.0); MONO % 7.1 % (0.0-8.0); MONOCYTE # 0.7 TH/MM3 (0-0.9); NEUT % 74.8 % (16.0-70.0); PLATELET COUNT 159 TH/MM3 (150-450); RED BLOOD COUNT 4.57 MIL/MM3 (4.00-5.30); RED CELL DISTRIBUTION WIDTH 17.4 % (11.6-17.2); WHITE BLOOD COUNT 9.7 TH/MM3 (4.0-11.0)
[2017-08-01] MEDS ORDERED: PROPOFOL 1000 MG/100 ML INJ 100 ML IV STA (02:34)
[2017-08-01] MEDS: MAGNESIUM SULFATE 1 GM PREMIX 100 ML IV SCH ×2 (02:38→03:48)
--- NOTE | 2017-08-01 02:38 | RADRPT ---
EXAM DATE: 08/01/2017 2:31 AM EDT AGE/SEX: 57 years / Female INDICATIONS: Shortness of breath, intubation. CLINICAL DATA: This is the patient's initial encounter. Patient reports that signs and symptoms have been present for 1 day and indicates a pain score of Nonresponsive. MEDICAL/SURGICAL HISTORY: Chronic obstructive pulmonary disease. Gastric bypass. [place] [facility] [place]. . FINDINGS: A single AP view of the chest demonstrates the endotracheal tube with tip approximately 4 cm above th e yaritza. Heart enlarged. Patchy parenchymal densities in the right upper lobe and both lower lobes. The cardiomediastinal contours are unremarkable. Osseous structures are intact. CONCLUSION: Adequate placement of endotracheal tube. Bilateral patchy infiltrates. Electronically signed by: Reginaldo Hoover MD 08/01/2017 2:37 AM EDT
[2017-08-01] MEDS: PROPOFOL 500 MG/50 ML INJ 50 ML ONE ×2 (02:46→02:48)
[2017-08-01 02:47] LABS: INTERNATIONAL NORMALIZED RATIO 0.9 RATIO; PROTHROMBIN TIME - PATIENT 9.3 SEC (9.8-11.6)
[2017-08-01 02:48] LABS: ALBUMIN 3.1 GM/DL (3.4-5.0); ALT (GPT) 15 U/L (10-53); AST (GOT) 15 U/L (15-37); BICARBONATE 35.4 MEQ/L (21.0-32.0); BLOOD UREA NITROGEN 12 MG/DL (7-18); CALCIUM 8.9 MG/DL (8.5-10.1); CHLORIDE 103 MEQ/L (98-107); CREATININE 0.79 MG/DL (0.50-1.00); GLOMERULAR FILTRATION RATE 75 ML/MIN (>89); GLUCOSE,RANDOM 133 MG/DL (74-106); SODIUM (NA) 143 MEQ/L (136-145)
[2017-08-01 02:52] LABS: ALKALINE PHOSPHATASE 150 U/L (45-117); TOTAL BILIRUBIN ADULT 0.3 MG/DL (0.2-1.0); TOTAL PROTEIN 7.1 GM/DL (6.4-8.2); TROPONIN I LESS THAN 0.02 NG/ML (0.02-0.05)
[2017-08-01 03:08] LABS: BACTERIA, URINE MANY /hpf; BILIRUBIN, URINE NEG (NEG); BLOOD, URINE SMALL (NEG); GLUCOSE,URINE NEG (NEG); HYALINE CAST, URINE 1 /lpf (RARE); KETONE, URINE NEG (NEG); MUCUS URINE FEW /lpf (OCC); NITRITE,URINE POS (NEG); URINE COLOR YELLOW (YELLW/STRAW); URINE LEUKOCYTE ESTERASE SMALL (NEG)
[2017-08-01] MEDS ORDERED: DEXT1TAB18 PO (03:40)
[2017-08-01] MEDS ORDERED: BIOTSPR PO (03:40)
[2017-08-01] MEDS ORDERED: DILT60TA PO (03:40)
[2017-08-01] MEDS ORDERED: ZITH250T PO (03:40)
[2017-08-01] MEDS ORDERED: APLI5INJ2 (03:40)
[2017-08-01] MEDS ORDERED: IBUP1TAB5 PO (03:40)
[2017-08-01] MEDS ORDERED: VITA500T4 PO (03:40)
[2017-08-01] MEDS ORDERED: OMEP20TA93 PO (03:40)
[2017-08-01] MEDS ORDERED: methylPREDNISolone SOD SUCC 125 MG/2 ML VIAL IV PUSH ONE (04:30)
[2017-08-01] MEDS ORDERED: VANCOMYCIN INJ 1,000 MG in SODIUM CHLOR 0.9% 250 ML INJ 250 ML IV ONE (05:00)
[2017-08-01] MEDS ORDERED: cefTRIAXone INJ 1,000 MG in SODIUM CHLORIDE 0.9% INJ 25 ML IV ONE (05:00)
[2017-08-01] MEDS ORDERED: cefTRIAXone 1,000 MG/NS 100 ML IV ONE ×2 (05:00)
--- NOTE | 2017-08-01 05:18 | HHI.HP ---
HPI Service Critical Care Medicine Primary Care Physician Og Birmingham MD Admission Diagnosis urosepsis, respiratory failure, hypercap Diagnosis: Travel History International Travel<30 Days: No Contact w/Intl Traveler <30 Da: No Traveled to Known Affected Are: No History of Present Illness 57-year-old morbidly obese female, detention resident, the EMT was called for respiratory distress, patient was obtunded with CO2 140 and was intubated by paramedics. No further history is obtainable Past Family Social History Allergies: Coded Allergies: penicillin G (Unverified Allergy, Unknown, 05/21/17) Past Medical History Anemia Anxiety Depression COPD, o2 dependent on 3L o2 Diverticulitis GERD Herniated Disk Sleep apnea Past Surgical History Colostomy Gastric bypass Reported Medications Reported Meds & Active Scripts Active Bactroban Nasal Oint (Mupirocin Nasal Oint) 2% Oint 1 Applic EACH NARE BID Single-use tubes. end date of use 06/03/17 apply intranasally bid Ativan (Lorazepam) 0.5 Mg Tab 0.5 Mg PO Q12HR PRN Symbicort Inh (Budesonide/Formoterol Fumarate) 80-4.5 Mcg/Act Aero 2 Puff INH Q12HR Duoneb (Ipratropium-Albuterol Neb) 0.5-2.5 Mg/3 Ml Neb 1 Ampule INH Q6HR PRN 7 Days Reported Zithromax (Azithromycin) 250 Mg Tab 250 Mg PO DIRECTED Take 2 tabs (500 mg) on day 1 then 1 tab daily x 4 days. Aplisol (Tuberculin Ppd) 5 Tub. Unit/0.1 Ml Inj Diltiazem (Diltiazem HCl) 60 Mg Tab 60 Mg PO DAILY Ibuprofen 400 Mg Tab 400 Mg PO Q8H PRN Omeprazole 20 Mg Tab 20 Mg PO DAILY Biotene Moisturizing Mouth Java Liq (Artificial Saliva Liq) 1 Java 3 Java PO BID Vitamin B-12 (Cyanocobalamin) 500 Mcg Tab 500 Mcg PO DAILY Mucinex Dm ER 1,200-60 mg Tab (Guaifenesin/Dextromethorphan) 1,200 Mg-60 Mg Tab.er.12h 600 Mg PO BID Buspirone (Buspirone HCl) 10 Mg Tab 10 Mg PO DAILY Lyrica (Pregabalin) 75 Mg Cap 100 Mg PO TID Quetiapine (Quetiapine Fumarate) 200 Mg Tab 200 Mg PO HS Quetiapine (Quetiapine Fumarate) 100 Mg Tab 100 Mg PO DAILY Neurontin (Gabapentin) 300 Mg Cap 1,200 Mg PO TID Amitriptyline (Amitriptyline HCl) 25 Mg Tab 25 Mg PO AC BREAKFAST Albuterol Neb (Albuterol Sulfate) 2.5 Mg/3 Ml Neb 2.5 Mg NEB Q8HR NEB PRN Aspirin 81 Mg Chew 81 Mg CHEW DAILY Amitriptyline (Amitriptyline HCl) 50 Mg Tab 75 Mg PO HS 25mg tab give 25mg before breakfast 75mg tablet give 1 tablet at hs Family History reviewed and found to be noncontributory to her acute illness. Social History No documented history of tobacco, alcohol, or illicit drug abuse Physical Exam Vital Signs Vital Signs Date Time Temp Pulse Resp B/P (MAP) Pulse Ox O2 Delivery O2 Flow Rate FiO2 08/01/17 05:00 90 109/53 (71) 98 08/01/17 04:45 92 115/54 (74) 97 08/01/17 03:30 98 110/52 (71) 97 08/01/17 03:16 99 115/58 (77) 99 08/01/17 02:41 109 152/66 (94) 97 08/01/17 02:24 90 60 08/01/17 02:06 111 184/78 (113) 92 Physical Exam GENERAL: Morbidly obese, elderly appearing woman, sedated and intubated SKIN: Warm and dry. HEAD: Normocephalic. EYES: No scleral icterus. No injection or drainage. NECK: Supple, trachea midline. No JVD or lymphadenopathy. CARDIOVASCULAR: Regular rate and rhythm without murmurs, gallops, or rubs. RESPIRATORY: Breath sounds equal bilaterally. No accessory muscle use. GASTROINTESTINAL: Abdomen soft, non-tender, nondistended. MUSCULOSKELETAL: No cyanosis, or edema. BACK: Nontender without obvious deformity. NEURO EXAM: GCS: The patient is sedated and intubated.Pupils are round, reactive to light. Reflexes: Biceps, patellar, and Achilles are 2/4 bilaterally. No clonus. Laboratory Laboratory Tests Test 08/01/17 02:05 08/01/17 02:10 08/01/17 02:15 08/01/17 02:50 Blood Gas Puncture Site RT FOOT LT FOOT Blood Gas Patient Temperature 98.6 98.6 Blood Gas HCO3 32 38 Blood Gas Base Excess 7.8 8.2 Blood Gas Oxygen Saturation 95 88 Arterial Blood pH 7.42 7.06 Arterial Blood Partial Pressure CO2 51 143 Arterial Blood Partial Pressure O2 76 71 Arterial Blood Oxygen Content 15.9 15.9 Arterial Blood Carboxyhemoglobin 1.7 1.2 Arterial Blood Methemoglobin 0.5 0.7 Blood Gas Hemoglobin 11.8 12.9 Oxygen Delivery Device VENTILATOR VENTILATOR Blood Gas Ventilator Setting Blood Gas Inspired Oxygen 50 80 White Blood Count 9.7 Red Blood Count 4.57 Hemoglobin 12.7 Hematocrit 40.2 Mean Corpuscular Volume 87.9 Mean Corpuscular Hemoglobin 27.7 Mean Corpuscular Hemoglobin Concent 31.5 Red Cell Distribution Width 17.4 Platelet Count 159 Mean Platelet Volume 10.3 Neutrophils (%) (Auto) 74.8 Lymphocytes (%) (Auto) 15.6 Monocytes (%) (Auto) 7.1 Eosinophils (%) (Auto) 1.9 Basophils (%) (Auto) 0.6 Neutrophils # (Auto) 7.3 Lymphocytes # (Auto) 1.5 Monocytes # (Auto) 0.7 Eosinophils # (Auto) 0.2 Basophils # (Auto) 0.1 CBC Comment DIFF FINAL Differential Comment Prothrombin Time 9.3 Prothromb Time International Ratio 0.9 Activated Partial Thromboplast Time 25.0 Blood Urea Nitrogen 12 Creatinine 0.79 Random Glucose 133 Total Protein 7.1 Albumin 3.1 Calcium Level 8.9 Alkaline Phosphatase 150 Aspartate Amino Transf (AST/SGOT) 15 Alanine Aminotransferase (ALT/SGPT) 15 Total Bilirubin 0.3 Sodium Level 143 Potassium Level 4.9 Chloride Level 103 Carbon Dioxide Level 35.4 Anion Gap 5 Estimat Glomerular Filtration Rate 75 Lactic Acid Level 1.6 Total Creatine Kinase 25 Troponin I LESS THAN 0.02 B-Hydroxybutyrate 0.10 Urine Color YELLOW Urine Turbidity HAZY Urine pH 7.0 Urine Specific [place] 1.012 Urine Protein NEG Urine Glucose (UA) NEG Urine Ketones NEG Urine Occult Blood SMALL Urine Nitrite POS Urine Bilirubin NEG Urine Urobilinogen LESS THAN 2 Urine Leukocyte Esterase SMALL Urine RBC 6 Urine WBC 46 Urine Bacteria MANY Urine Hyaline Casts 1 Urine Mucus FEW Microscopic Urinalysis Comment CATH-CULTURE IND Date/Time Source Procedure Growth Status 08/01/17 02:30 Blood Peripheral Aerobic Blood Culture Pending Received 08/01/17 02:30 Blood Peripheral Anaerobic Blood Culture Pending Received 08/01/17 02:50 Urine Catheterized Urine Urine Culture Pending Received Result Diagram: 08/01/17 0215 08/01/17 0215 Imaging Last 24 hours Impressions Chest X-Ray 08/01/17 0000 Signed Impressions: CONCLUSION: Adequate placement of endotracheal tube. Bilateral patchy infiltrates. Caprini VTE Risk Assessment Caprini VTE Risk Assessment: Mod/High Risk (score >= 2) Caprini Risk Assessment Model Point Value = 1 Point Value = 2 Point Value = 3 Point Value = 5 Age 41-60 Minor surgery BMI > 25 kg/m2 Swollen legs Varicose veins or History of unexplained or recurrent spontaneous Oral contraceptives or hormone replacement Sepsis (< 1 month) Serious lung disease, including pneumonia (< 1 month) Abnormal pulmonary function Acute myocardial infarction Congestive heart failure (< 1 month) History of inflammatory bowel disease Medical patient at bed rest Age 61-74 Arthroscopic surgery Major open surgery (> 45 min) Laparoscopic surgery (> 45 min) Malignancy Confined to bed (> 72 hours) Immobilizing plaster cast Central venous access Age >= 75 History of VTE Family history of VTE Factor V Leiden Prothrombin [id number] Lupus anticoagulant Anticardiolipin antibodies Elevated serum homocysteine Heparin-induced thrombocytopenia Other congenital or acquired thrombophilia Stroke (< 1 month) Elective arthroplasty Hip, pelvis, or leg fracture Acute spinal cord injury (< 1 month) Prophylaxis Regimen Total Risk Factor Score Risk Level Prophylaxis Regimen 0-1 Low Early ambulation 2 Moderate Order ONE of the following: *Sequential Compression Device (SCD) *Heparin 5000 units SQ BID 3-4 Higher Order ONE of the following medications: *Heparin 5000 units SQ TID *Enoxaparin/Lovenox 40 mg SQ daily (WT < 150 kg, CrCl > 30 mL/min) *Enoxaparin/Lovenox 30 mg SQ daily (WT < 150 kg, CrCl > 10-29 mL/min) *Enoxaparin/Lovenox 30 mg SQ BID (WT < 150 kg, CrCl > 30 mL/min) AND/OR *Sequential Compression Device (SCD) 5 or more Highest Order ONE of the following medications: *Heparin 5000 units SQ TID (Preferred with Epidurals) *Enoxaparin/Lovenox 40 mg SQ daily (WT < 150 kg, CrCl > 30 mL/min) *Enoxaparin/Lovenox 30 mg SQ daily (WT < 150 kg, CrCl > 10-29 mL/min) *Enoxaparin/Lovenox 30 mg SQ BID (WT < 150 kg, CrCl > 30 mL/min) AND *Sequential Compression Device (SCD) Assessment and Plan Assessment and Plan Respiratory failure -Obesity hypoventilation syndrome -KAILYN -COPD -Bilateral pulmonary infiltrate -Broad-spectrum antibiotic -Panculture -De-escalate per sensitivity and resolved UTI -Broad-spectrum antibiotics -IV fluid hydration Anemia -Monitor H&H -Transfuse to keep hemoglobin above 7 Anxiety -Buspirone -Lorazepam as needed Depression -Amitriptyline -Seroquel COPD -Mechanical ventilation for now -Symbicort GERD -Pepcid Sleep apnea -Not an issue while intubated -CPAP at bedtime DVT GI prophylaxis -Teds SCDs -Subcu heparin -Pepcid Critical Care: The total critical care time was 35 minutes. Time to perform other separately billable procedures was not included in the critical care time. Marcelo Lora MD Aug 01, 2017 5:18 am
[2017-08-01] MEDS ORDERED: SODIUM CHLOR 0.9% 1000 ML INJ 1,000 ML IV SCH (05:23)
[2017-08-01] MEDS ORDERED: SENNOSIDES 8.6 MG TAB PO PRN (05:30)
[2017-08-01] MEDS ORDERED: BISACODYL 10 MG SUPP RECTAL PRN (05:30)
[2017-08-01] MEDS ORDERED: ACETAMINOPHEN 325 MG TAB PO PRN (05:30)
[2017-08-01] MEDS ORDERED: CHLORHEXIDINE GLUCONATE 2 % 1 PACK (2 CLOTHS) TOP PRN (05:30)
[2017-08-01] MEDS ORDERED: SODIUM CHLORIDE 0.9% FLUSH 10 ML FLUSH IV FLUSH PRN (05:30)
[2017-08-01] MEDS ORDERED: NURSING INFORMATION XX SCH (05:30)
[2017-08-01] MEDS ORDERED: LORazepam 2 MG/ML VIAL IV PUSH PRN (05:30)
[2017-08-01] MEDS ORDERED: Vancomycin Consult Pharmacy 1 EA OTHER SCH (05:30)
[2017-08-01] MEDS ORDERED: MIDAZOLAM 50 MG/50 ML INJ 50 ML IV PRN (05:30)
[2017-08-01] MEDS ORDERED: ONDANSETRON HCL 4 MG/2 ML VIAL IV PUSH PRN (05:30)
[2017-08-01] MEDS ORDERED: fentaNYL DRIP 250 ML IV PRN (05:30)
[2017-08-01] MEDS ORDERED: LACTULOSE SYRUP 20 GM/30 ML CUP PO PRN (05:30)
[2017-08-01] MEDS ORDERED: MAGNESIUM HYDROXIDE SUSP 30 ML CUP PO PRN (05:30)
[2017-08-01] MEDS ORDERED: SODIUM CHLOR 0.9% 1000 ML INJ 1,000 ML IV ONE ×3 (05:45)
[2017-08-01] MEDS: HEPARIN SODIUM - SQ 10,000 UNITS/ML VIAL SQ SCH ×3 (06:45→22:19)
[2017-08-01] MEDS ORDERED: VANCOMYCIN 1 GM/200 ML PREMIX ON-CALL IV SCH (07:00)
[2017-08-01] MEDS: AMITRIPTYLINE HCL 25 MG TAB PO SCH (07:00)
[2017-08-01] MEDS: CHLORHEXIDINE 0.12% (ORAL KIT) 15 ML CUP MT SCH ×2 (08:00→20:00)
[2017-08-01] MEDS: busPIRone HCL 10 MG TAB PO SCH (08:13)
[2017-08-01] MEDS: GABAPENTIN 300 MG CAP PO SCH ×3 (08:13→17:40)
[2017-08-01] MEDS: ASPIRIN 81 MG CHEW TAB CHEW SCH (08:13)
[2017-08-01] MEDS: DOCUSATE SODIUM 50 MG/SENNA 8.6 MG TAB PO SCH ×2 (08:13→20:24)
[2017-08-01] MEDS: CYANOCOBALAMIN 1,000 MCG TAB PO SCH (08:13)
[2017-08-01] MEDS: QUEtiapine FUMARATE 100 MG TAB PO SCH (08:13)
[2017-08-01] MEDS: FAMOTIDINE 20 MG/2 ML VIAL IV PUSH SCH ×2 (08:14→20:23)
[2017-08-01] MEDS: SODIUM CHLORIDE 0.9% FLUSH 10 ML FLUSH IV FLUSH SCH ×2 (08:14→20:24)
[2017-08-01] MEDS: AZTREONAM INJ 2,000 MG in SODIUM CHLORIDE 0.9% INJ 100 ML IV SCH ×3 (08:15→22:19)
[2017-08-01] MEDS: LEVOFLOXACIN 750 MG PREMIX INJ 150 ML IV SCH (08:52)
[2017-08-01] MEDS ORDERED: BIOTENE MOISTURIZING MOUTH PO SCH (09:00)
[2017-08-01] MEDS: BUDESONIDE-FORMOTEROL 80/4.5 MCG INHALER INH SCH ×2 (09:00→21:00)
[2017-08-01] MEDS: PREGABALIN 100 MG CAP PO SCH ×3 (09:00→17:40)
[2017-08-01] MEDS: RESP: ALBUTEROL 2.5 MG/IPRATROPIUM 0.5 MG NEB (SCH) INH ×5 (10:02→23:51)
--- NOTE | 2017-08-01 12:50 | EKG ---
Date Performed: 08/01/2017 Time Performed: 02:52:51 PTAGE: 57 years EKG: SINUS TACHYCARDIA RIGHT BUNDLE BRANCH BLOCK POSSIBLE ANTERIOR MYOCARDIAL INFARCTION ABNORMA L ECG PREVIOUS TRACING : 05/21/2017 01.20 Since the previous tracing, no significant change noted DOCTOR: Luis Alberto Prater Interpretating Date/Time 08/01/2017 12:49:29
[2017-08-01] MEDS: VANCOMYCIN INJ 2,000 MG in SODIUM CHLORID 0.9% 500 ML INJ 500 ML IV SCH (17:41)
[2017-08-01] MEDS: QUEtiapine FUMARATE 200 MG TAB PO SCH (20:24)
[2017-08-01] MEDS: AMITRIPTYLINE HCL 75 MG TAB PO SCH (20:24)
[2017-08-01] MEDS ORDERED: ZOLPIDEM TARTRATE 10 MG TAB PO ONE (23:45)
[2017-08-02] VITALS (15 sets, daily range): BP systolic 136–165; BP diastolic 60–90; PULSE 91–113; RESP 16–56; TEMP 97.4–98.6; O2SAT 93–100
[2017-08-02] MEDS: VANCOMYCIN INJ 2,000 MG in SODIUM CHLORID 0.9% 500 ML INJ 500 ML IV SCH ×2 (01:24→11:26)
[2017-08-02] MEDS: RESP: ALBUTEROL 2.5 MG/IPRATROPIUM 0.5 MG NEB (SCH) INH ×5 (03:56→19:59)
[2017-08-02] MEDS: CHLORHEXIDINE GLUCONATE 2 % 1 PACK (2 CLOTHS) TOP SCH (04:00)
--- NOTE | 2017-08-02 04:49 | RADRPT ---
EXAM DATE: 08/02/2017 4:05 AM EDT AGE/SEX: 57 years / Female INDICATIONS: Shortness of breath, possible pulmonary disease. CLINICAL DATA: This is the patient's subsequent encounter. Patient reports that signs and symptoms h ave been present for 2 days and indicates a pain score of Nonresponsive. MEDICAL/SURGICAL HISTORY: Chronic obstructive pulmonary disease. Gastric bypass. COMPARISON: [facility] – [place] AP, 08/01/2017. . FINDINGS: A single AP view of the chest demonstrates minimal linear density left lower lobe. Lungs are better a erated. The cardiomediastinal contours are unremarkable. Osseous structures are intact. CONCLUSION: Left basilar atelectasis Electronically signed by: Reginaldo Hoover MD 08/02/2017 4:47 AM EDT
[2017-08-02] MEDS: AZTREONAM INJ 2,000 MG in SODIUM CHLORIDE 0.9% INJ 100 ML IV SCH ×3 (05:25→22:20)
[2017-08-02] MEDS: LEVOFLOXACIN 750 MG PREMIX INJ 150 ML IV SCH (05:25)
[2017-08-02] MEDS: HEPARIN SODIUM - SQ 10,000 UNITS/ML VIAL SQ SCH ×3 (06:06→20:52)
[2017-08-02] MEDS: AMITRIPTYLINE HCL 25 MG TAB PO SCH (07:00)
[2017-08-02] MEDS: CHLORHEXIDINE 0.12% (ORAL KIT) 15 ML CUP MT SCH ×2 (08:00→20:00)
[2017-08-02] MEDS: BUDESONIDE-FORMOTEROL 80/4.5 MCG INHALER INH SCH ×2 (09:00→21:26)
[2017-08-02] MEDS: SODIUM CHLORIDE 0.9% FLUSH 10 ML FLUSH IV FLUSH SCH ×2 (09:00→20:53)
[2017-08-02] MEDS: GABAPENTIN 300 MG CAP PO SCH ×3 (09:07→15:27)
[2017-08-02] MEDS: ASPIRIN 81 MG CHEW TAB CHEW SCH (09:07)
[2017-08-02] MEDS: busPIRone HCL 10 MG TAB PO SCH (09:07)
[2017-08-02] MEDS: QUEtiapine FUMARATE 100 MG TAB PO SCH (09:08)
[2017-08-02] MEDS: CYANOCOBALAMIN 1,000 MCG TAB PO SCH (09:08)
[2017-08-02] MEDS: FAMOTIDINE 20 MG/2 ML VIAL IV PUSH SCH ×2 (09:08→20:52)
[2017-08-02] MEDS: PREGABALIN 100 MG CAP PO SCH ×3 (09:08→15:27)
[2017-08-02] MEDS: DOCUSATE SODIUM 50 MG/SENNA 8.6 MG TAB PO SCH ×2 (09:08→20:52)
[2017-08-02 12:24] LABS: INTERNATIONAL NORMALIZED RATIO 0.9 RATIO; PROTHROMBIN TIME - PATIENT 9.4 SEC (9.8-11.6)
[2017-08-02 12:37] LABS: AUTOMATED NEUTROPHIL # 5.2 TH/MM3 (1.8-7.7); BASOPHIL % 0.4 % (0.0-2.0); EOSINOPHIL # 0.1 TH/MM3 (0-0.4); EOSINOPHIL % 1.4 % (0.0-4.0); HEMATOCRIT 40.7 % (35.0-46.0); HEMOGLOBIN 12.4 GM/DL (11.6-15.3); LYMPH % 10.7 % (9.0-44.0); LYMPHOCYTE # 0.7 TH/MM3 (1.0-4.8); MEAN CORPUSCULAR HEMOGLOBIN 27.3 PG (27.0-34.0); MEAN CORPUSCULAR HGB CONC 30.4 % (32.0-36.0); MEAN PLATELET VOLUME 9.9 FL (7.0-11.0); MONO % 5.2 % (0.0-8.0); MONOCYTE # 0.3 TH/MM3 (0-0.9); NEUT % 82.3 % (16.0-70.0); PLATELET COUNT 132 TH/MM3 (150-450); RED BLOOD COUNT 4.52 MIL/MM3 (4.00-5.30); RED CELL DISTRIBUTION WIDTH 17.5 % (11.6-17.2); WHITE BLOOD COUNT 6.4 TH/MM3 (4.0-11.0)
[2017-08-02 13:01] LABS: ALBUMIN 2.9 GM/DL (3.4-5.0); ALKALINE PHOSPHATASE 117 U/L (45-117); ALT (GPT) 17 U/L (10-53); AST (GOT) 13 U/L (15-37); BICARBONATE 31.4 MEQ/L (21.0-32.0); BLOOD UREA NITROGEN 9 MG/DL (7-18); CALCIUM 8.9 MG/DL (8.5-10.1); CHLORIDE 108 MEQ/L (98-107); CREATININE 0.64 MG/DL (0.50-1.00); GLOMERULAR FILTRATION RATE 95 ML/MIN (>89); GLUCOSE,RANDOM 99 MG/DL (74-106); MAGNESIUM 2.4 MG/DL (1.5-2.5); PHOSPHORUS 2.3 MG/DL (2.5-4.9); SODIUM (NA) 146 MEQ/L (136-145); TOTAL BILIRUBIN ADULT 0.2 MG/DL (0.2-1.0); TOTAL PROTEIN 6.7 GM/DL (6.4-8.2)
--- NOTE | 2017-08-02 14:50 | HHI.PR ---
Subjective Remarks Patient resting in bed on 6 L O2 nasal cannula, heart rate is 1 4, He told me she is feeling okay when on the oxygen She also remembered that I treated her in the past she was No fever or chills Objective Vitals Vital Signs Date Time Temp Pulse Resp B/P (MAP) Pulse Ox O2 Delivery O2 Flow Rate FiO2 08/02/17 14:00 108 08/02/17 12:00 98.6 109 47 165/72 (103) 97 08/02/17 12:00 109 08/02/17 10:00 110 08/02/17 08:00 109 08/02/17 08:00 98.3 109 56 136/90 (105) 93 08/02/17 07:43 95 Nasal Cannula 6.00 08/02/17 06:00 104 08/02/17 04:00 93 08/02/17 04:00 97.6 93 26 138/78 (98) 95 08/02/17 03:56 94 Nasal Cannula 6.00 08/02/17 02:00 91 08/02/17 00:10 95 55 08/02/17 00:00 100 08/02/17 00:00 97.4 100 24 146/66 (92) 98 08/01/17 22:00 105 08/01/17 20:07 92 Nasal Cannula 6.00 08/01/17 20:00 98.0 107 25 141/70 (93) 89 08/01/17 20:00 107 08/01/17 18:40 18 08/01/17 18:00 107 08/01/17 16:00 97 08/01/17 16:00 98.3 100 22 136/93 (107) 92 08/01/17 15:23 94 Nasal Cannula 3.00 08/01/17 15:23 94 Nasal Cannula 3 08/01/17 15:20 100 08/01/17 15:00 97 I/O 08/01/17 08/01/17 08/01/17 08/02/17 08/02/17 08/02/17 07:00 15:00 23:00 07:00 15:00 23:00 Intake Total 350 ml 2000 ml 2570 ml 1490 ml Output Total 3000 ml 5050 ml Balance 350 ml 2000 ml -430 ml -3560 ml Intake Oral 600 ml 720 ml IV Total 350 ml 2000 ml 1970 ml 770 ml Output Urine Total 3000 ml 4750 ml Stool Total 300 ml Result Diagram: 08/02/17 1155 08/02/17 1115 Objective Remarks GENERAL: This is a morbidly obese well-developed patient, in no apparent distress. CARDIOVASCULAR: RRR, RESPIRATORY: Multiple crackles GASTROINTESTINAL: Abdomen soft, non-tender, nondistended. Positive bowel sounds MUSCULOSKELETAL: Extremities without clubbing, cyanosis, or edema. Pedal pulses appreciated NEUROLOGICAL: Awake and alert. Moves all extremity. Normal speech.no focal neurological deficit A/P Assessment and Plan 08/02: Continue IV antibiotic, monitor sputum culture, monitor oxygenation, wean down O2, continue CPAP as needed, follow clinical course monitor improvement ASSESSMENT Respiratory failure UTI Anemia COPD GERD Depression Anxiety Sleep apnea plan: -Obesity hypoventilation syndrome -KAILYN -COPD -Bilateral pulmonary infiltrate -Broad-spectrum antibiotic -Panculture -De-escalate per sensitivity and resolved -IV fluid hydration -Monitor H&H -Transfuse to keep hemoglobin above 7 -Buspirone -Lorazepam as needed -Amitriptyline -Seroquel -Symbicort -Pepcid -CPAP at bedtime DVT GI prophylaxis -Teds SCDs -Subcu heparin Parvin Hammond MD Aug 02, 2017 14:50
[2017-08-02] MEDS: ACETAMINOPHEN/HYDROcodone 325 MG/5 MG TAB PO PRN ×2 (16:40→21:21)
[2017-08-02] MEDS: QUEtiapine FUMARATE 200 MG TAB PO SCH (20:52)
[2017-08-02] MEDS: AMITRIPTYLINE HCL 75 MG TAB PO SCH (20:52)
[2017-08-03] VITALS (19 sets, daily range): BP systolic 114–147; BP diastolic 57–65; PULSE 96–114; RESP 25–35; TEMP 98.2–98.5; O2SAT 83–100
[2017-08-03] MEDS: RESP: ALBUTEROL 2.5 MG/IPRATROPIUM 0.5 MG NEB (SCH) INH ×7 (00:28→23:37)
[2017-08-03] MEDS ORDERED: PHARMACY ORDERED LAB ONE (00:45)
[2017-08-03] MEDS: VANCOMYCIN INJ 2,000 MG in SODIUM CHLORID 0.9% 500 ML INJ 500 ML IV SCH ×2 (02:46→12:26)
[2017-08-03] MEDS: CHLORHEXIDINE GLUCONATE 2 % 1 PACK (2 CLOTHS) TOP SCH (04:00)
[2017-08-03] MEDS: AZTREONAM INJ 2,000 MG in SODIUM CHLORIDE 0.9% INJ 100 ML IV SCH ×3 (05:08→21:48)
[2017-08-03] MEDS: HEPARIN SODIUM - SQ 10,000 UNITS/ML VIAL SQ SCH ×3 (05:08→21:50)
[2017-08-03] MEDS: LEVOFLOXACIN 750 MG PREMIX INJ 150 ML IV SCH (05:09)
[2017-08-03] MEDS: ACETAMINOPHEN/HYDROcodone 325 MG/5 MG TAB PO PRN ×3 (05:11→19:01)
[2017-08-03] MEDS: AMITRIPTYLINE HCL 25 MG TAB PO SCH (07:00)
[2017-08-03 07:33] LABS: HEMATOCRIT 35.2 % (35.0-46.0); HEMOGLOBIN 10.9 GM/DL (11.6-15.3); MEAN CELL VOLUME 88.2 FL (80.0-100.0); MEAN CORPUSCULAR HEMOGLOBIN 27.2 PG (27.0-34.0); MEAN CORPUSCULAR HGB CONC 30.9 % (32.0-36.0); MEAN PLATELET VOLUME 10.2 FL (7.0-11.0); PLATELET COUNT 128 TH/MM3 (150-450); RED BLOOD COUNT 3.99 MIL/MM3 (4.00-5.30); RED CELL DISTRIBUTION WIDTH 17.4 % (11.6-17.2); WHITE BLOOD COUNT 5.4 TH/MM3 (4.0-11.0)
[2017-08-03 07:51] LABS: BICARBONATE 32.5 MEQ/L (21.0-32.0); CALCIUM 8.8 MG/DL (8.5-10.1); CREATININE 0.66 MG/DL (0.50-1.00)
[2017-08-03] MEDS: FAMOTIDINE 20 MG/2 ML VIAL IV PUSH SCH ×2 (09:00→21:48)
[2017-08-03] MEDS: QUEtiapine FUMARATE 100 MG TAB PO SCH (09:59)
[2017-08-03] MEDS: CYANOCOBALAMIN 1,000 MCG TAB PO SCH (09:59)
[2017-08-03] MEDS: DOCUSATE SODIUM 50 MG/SENNA 8.6 MG TAB PO SCH ×2 (09:59→21:47)
[2017-08-03] MEDS: PREGABALIN 100 MG CAP PO SCH ×3 (09:59→18:20)
[2017-08-03] MEDS: busPIRone HCL 10 MG TAB PO SCH (09:59)
[2017-08-03] MEDS: ASPIRIN 81 MG CHEW TAB CHEW SCH (10:00)
[2017-08-03] MEDS: SODIUM CHLORIDE 0.9% FLUSH 10 ML FLUSH IV FLUSH SCH ×2 (10:00→21:48)
[2017-08-03] MEDS: GABAPENTIN 300 MG CAP PO SCH ×3 (10:00→18:19)
[2017-08-03] MEDS: BUDESONIDE-FORMOTEROL 80/4.5 MCG INHALER INH SCH ×2 (10:00→21:48)
[2017-08-03] MEDS: CHLORHEXIDINE 0.12% (ORAL KIT) 15 ML CUP MT SCH ×2 (10:01→20:00)
--- NOTE | 2017-08-03 15:17 | HHI.PR ---
Subjective Remarks Patient still with high need of oxygen 6 L However she resting comfortably in bed Denied acute complain Objective Vitals Vital Signs Date Time Temp Pulse Resp B/P (MAP) Pulse Ox O2 Delivery O2 Flow Rate FiO2 08/03/17 14:00 98 08/03/17 13:26 35 08/03/17 12:00 98.2 99 35 126/58 (80) 97 08/03/17 12:00 99 08/03/17 10:59 29 08/03/17 10:00 105 08/03/17 08:00 101 08/03/17 08:00 98.3 101 31 124/60 (81) 97 08/03/17 07:53 93 Nasal Cannula 6.00 08/03/17 06:00 104 08/03/17 04:51 92 70 08/03/17 04:00 98.4 103 28 114/57 (76) 100 08/03/17 04:00 103 08/03/17 02:00 111 08/03/17 01:54 92 70 08/03/17 00:00 109 08/03/17 00:00 98.3 109 25 117/58 (77) 97 08/02/17 22:00 113 08/02/17 20:00 96 Nasal Cannula 5.00 08/02/17 20:00 98.0 107 27 148/60 (89) 95 08/02/17 20:00 107 08/02/17 18:00 106 08/02/17 16:00 98.6 103 16 100 08/02/17 16:00 103 I/O 08/02/17 08/02/17 08/02/17 08/03/17 08/03/17 08/03/17 07:00 15:00 23:00 07:00 15:00 23:00 Intake Total 1490 ml 1680 ml 1250 ml Output Total 5050 ml 200 ml 1700 ml 1520 ml Balance -3560 ml -200 ml -20 ml -270 ml Intake Oral 720 ml 960 ml 480 ml IV Total 770 ml 720 ml 770 ml Output Urine Total 4750 ml 1700 ml 1500 ml Stool Total 300 ml 200 ml 0 ml 20 ml Result Diagram: 08/03/1761608/03/17616 Objective Remarks GENERAL: This is a morbidly obese well-developed patient, in no apparent distress. CARDIOVASCULAR: RRR, RESPIRATORY: Multiple crackles GASTROINTESTINAL: Abdomen soft, non-tender, nondistended. Positive bowel sounds MUSCULOSKELETAL: Extremities without clubbing, cyanosis, or edema. Pedal pulses appreciated NEUROLOGICAL: Awake and alert. Moves all extremity. Normal speech.no focal neurological deficit A/P Assessment and Plan 08/02: Continue IV antibiotic, monitor sputum culture, monitor oxygenation, wean down O2, continue CPAP as needed, follow clinical course monitor improvement 1618: Still needing 6 L of oxygen, continue monitoring in ICU for respiratory assessment, continue IV antibiotic, CPAP as needed Hemoglobin and platelet dropped from 12.4, 159>>10.9, 129 respectively we will continue CBC monitoring Lactic acid was 2.4 yesterday we will repeat the level ASSESSMENT Respiratory failure UTI Anemia COPD GERD Depression Anxiety Sleep apnea plan: -Obesity hypoventilation syndrome -KAILYN -COPD -Bilateral pulmonary infiltrate -Broad-spectrum antibiotic -Panculture -De-escalate per sensitivity and resolved -IV fluid hydration -Monitor H&H -Transfuse to keep hemoglobin above 7 -Buspirone -Lorazepam as needed -Amitriptyline -Seroquel -Symbicort -Pepcid -CPAP at bedtime DVT GI prophylaxis -Teds SCDs -Subcu heparin Parvin Hammond MD Aug 03, 2017 15:17
[2017-08-03] MEDS: AMITRIPTYLINE HCL 75 MG TAB PO SCH (21:47)
[2017-08-03] MEDS: LORazepam 0.5 MG TAB PO PRN (21:50)
[2017-08-03] MEDS: QUEtiapine FUMARATE 200 MG TAB PO SCH (21:50)
[2017-08-04] VITALS (19 sets, daily range): BP systolic 122–136; BP diastolic 56–89; PULSE 101–119; RESP 30–65; TEMP 98–99.2; O2SAT 81–96
[2017-08-04] MEDS: VANCOMYCIN INJ 2,000 MG in SODIUM CHLORID 0.9% 500 ML INJ 500 ML IV SCH ×2 (01:00→12:55)
[2017-08-04] MEDS: RESP: ALBUTEROL 2.5 MG/IPRATROPIUM 0.5 MG NEB (SCH) INH ×6 (03:35→22:42)
[2017-08-04] MEDS: CHLORHEXIDINE GLUCONATE 2 % 1 PACK (2 CLOTHS) TOP SCH (04:00)
[2017-08-04] MEDS: AZTREONAM INJ 2,000 MG in SODIUM CHLORIDE 0.9% INJ 100 ML IV SCH ×2 (05:58→12:55)
[2017-08-04] MEDS: ACETAMINOPHEN/HYDROcodone 325 MG/5 MG TAB PO PRN ×2 (05:58→20:42)
[2017-08-04] MEDS: LEVOFLOXACIN 750 MG PREMIX INJ 150 ML IV SCH (05:59)
[2017-08-04] MEDS: HEPARIN SODIUM - SQ 10,000 UNITS/ML VIAL SQ SCH ×3 (05:59→21:48)
[2017-08-04 06:00] LABS: BICARBONATE 24.9 MEQ/L (21.0-32.0); CREATININE 0.61 MG/DL (0.50-1.00)
[2017-08-04 06:04] LABS: AUTOMATED NEUTROPHIL # 5.4 TH/MM3 (1.8-7.7); BASOPHIL # 0.1 TH/MM3 (0-0.2); BASOPHIL % 0.6 % (0.0-2.0); EOSINOPHIL # 0.5 TH/MM3 (0-0.4); EOSINOPHIL % 5.9 % (0.0-4.0); HEMATOCRIT 38.5 % (35.0-46.0); HEMOGLOBIN 11.8 GM/DL (11.6-15.3); LYMPH % 15.1 % (9.0-44.0); LYMPHOCYTE # 1.4 TH/MM3 (1.0-4.8); MEAN CORPUSCULAR HGB CONC 30.6 % (32.0-36.0); MONOCYTE # 1.7 TH/MM3 (0-0.9); NEUT % 59.4 % (16.0-70.0); PLATELET COUNT 137 TH/MM3 (150-450); RED BLOOD COUNT 4.38 MIL/MM3 (4.00-5.30); RED CELL DISTRIBUTION WIDTH 18.3 % (11.6-17.2)
[2017-08-04] MEDS: CHLORHEXIDINE 0.12% (ORAL KIT) 15 ML CUP MT SCH ×2 (08:00→20:00)
[2017-08-04] MEDS: CYANOCOBALAMIN 1,000 MCG TAB PO SCH (08:27)
[2017-08-04] MEDS: QUEtiapine FUMARATE 100 MG TAB PO SCH (08:27)
[2017-08-04] MEDS: PREGABALIN 100 MG CAP PO SCH ×3 (08:27→16:29)
[2017-08-04] MEDS: DOCUSATE SODIUM 50 MG/SENNA 8.6 MG TAB PO SCH ×2 (08:27→20:26)
[2017-08-04] MEDS: GABAPENTIN 300 MG CAP PO SCH ×3 (08:27→16:33)
[2017-08-04] MEDS: ASPIRIN 81 MG CHEW TAB CHEW SCH (08:28)
[2017-08-04] MEDS: busPIRone HCL 10 MG TAB PO SCH (08:28)
[2017-08-04] MEDS: BUDESONIDE-FORMOTEROL 80/4.5 MCG INHALER INH SCH ×2 (08:28→20:27)
[2017-08-04] MEDS: FAMOTIDINE 20 MG/2 ML VIAL IV PUSH SCH (08:28)
[2017-08-04] MEDS: SODIUM CHLORIDE 0.9% FLUSH 10 ML FLUSH IV FLUSH SCH ×2 (08:28→20:26)
[2017-08-04] MEDS: AMITRIPTYLINE HCL 25 MG TAB PO SCH (10:46)
[2017-08-04] MEDS ORDERED: PHARMACY ORDERED LAB ONE (12:45)
--- NOTE | 2017-08-04 13:24 | HHI.PR ---
Subjective Remarks I was called by the nurse patient is desaturating in the 70s and 80s however still continued to refuse apply the BiPAP and she wants to eat which is dangerous and try to explain to her ABG showed pH of 7.23, increased PCO2, she is a CO2 retainer at this point, we will repeat ABG in half an hour to 40 minutes if continues not to improve we will need to intubate, instructed the nurse not to give this point Objective Vitals Vital Signs Date Time Temp Pulse Resp B/P (MAP) Pulse Ox O2 Delivery O2 Flow Rate FiO2 08/04/17 11:08 104 32 125/73 (90) 95 08/04/17 11:08 104 08/04/17 10:00 106 08/04/17 10:00 106 33 136/64 (88) 81 08/04/17 09:01 106 08/04/17 09:01 106 30 122/59 (80) 89 08/04/17 08:25 94 Nasal Cannula 6.00 08/04/17 08:00 103 36 130/89 (103) 89 08/04/17 08:00 103 08/04/17 06:00 106 08/04/17 04:00 98.4 101 31 129/62 (84) 93 08/04/17 04:00 101 08/04/17 03:35 96 50 08/04/17 02:00 102 08/04/17 00:00 98.7 108 32 124/59 (80) 95 08/04/17 00:00 108 08/03/17 23:35 97 60 08/03/17 22:20 95 70 08/03/17 22:00 112 08/03/17 20:01 36 18 20:00 114 18 20:00 98.5 114 32 139/65 (89) 83 18 19:49 96 60 18 19:20 34 18 18:56 92 70 08/03/17 18:00 114 08/03/17 16:00 96 08/03/17 16:00 98.2 96 26 147/65 (92) 98 08/03/17 14:00 98 I/O 08/03/17 08/03/17 08/03/17 08/04/17 08/04/17 08/04/17 07:00 15:00 23:00 07:00 15:00 23:00 Intake Total 1250 ml 620 ml 1100 ml Output Total 1520 ml 1700 ml 850 ml Balance -270 ml 620 ml -600 ml -850 ml Intake Oral 480 ml 1100 ml IV Total 770 ml 620 ml Output Urine Total 1500 ml 1600 ml 850 ml Stool Total 20 ml 100 ml 0 ml # Voids 3 Result Diagram: 08/04/1752308/04/17523 Objective Remarks GENERAL: This is a morbidly obese well-developed patient, in mild distress due to dyspnea CARDIOVASCULAR: RRR, RESPIRATORY: Multiple crackles GASTROINTESTINAL: Abdomen soft, non-tender, nondistended. Positive bowel sounds MUSCULOSKELETAL: Extremities without clubbing, cyanosis, or edema. Pedal pulses appreciated NEUROLOGICAL: Awake and alert. Moves all extremity. Normal speech.no focal neurological deficit A/P Assessment and Plan 08/02: Continue IV antibiotic, monitor sputum culture, monitor oxygenation, wean down O2, continue CPAP as needed, follow clinical course monitor improvement 1618: Still needing 6 L of oxygen, continue monitoring in ICU for respiratory assessment, continue IV antibiotic, CPAP as needed Hemoglobin and platelet dropped from 12.4, 159>>10.9, 129 respectively we will continue CBC monitoring Lactic acid was 2.4 yesterday we will repeat the level 08/04: Frequent desaturating with hypercapnia, pH 7.23, PCO2, keep patient n.p.o. , applied BiPAP, repeat ABG in half an hour to 40 minutes if this is not improving will consult library historian for intubation, patient agreed Addendum: 3:04 PM: Repeated ABG with no change continue to have PCO2 at 70 and PH at 7.24, will consult library historian, check lactic acid ASSESSMENT Respiratory failure UTI Anemia COPD GERD Depression Anxiety Sleep apnea plan: -Obesity hypoventilation syndrome -KAILYN -COPD -Bilateral pulmonary infiltrate -Broad-spectrum antibiotic -Panculture -De-escalate per sensitivity and resolved -IV fluid hydration -Monitor H&H -Transfuse to keep hemoglobin above 7 -Buspirone -Lorazepam as needed -Amitriptyline -Seroquel -Symbicort -Pepcid -CPAP at bedtime DVT GI prophylaxis -Teds SCDs -Subcu heparin Parvin Hammond MD Aug 04, 2017 13:24
--- NOTE | 2017-08-04 15:46 | HHI.CCPN ---
Subjective Remarks/Hospital Course 08/01: 57-year-old morbidly obese female, long term resident, the EMT was called for respiratory distress, patient was obtunded with CO2 140 and was intubated by paramedics. No further history is obtainable. 08/04: Patient was admitted on 08/01 with acute hypoxic and hypercapnic respiratory failure and she was successfully extubated that morning. She was diagnosed with possible pneumonia and ESBL E coli UTI. Her hospitalization was significant for persistent hypoxia requiring 5-6 L of oxygen through the nasal cannula. This morning, patient became increasingly lethargic and hypoxic therefore she was placed on BiPAP. Current settings 20/10/70%. An ABG was done which showed hypercapnia therefore our service was called to help with the management. Of note, patient was treated with triple antibiotic therapy for possible pneumonia and UTI. Patient currently seen at bedside, she is fully awake, responding appropriately to questions, on BiPAP, pulse ox 94% on 0.7 FiO2. She tells me that she was previously intubated and if needed she would agree with intubation. T-max of 98.7, urine output 2.5 L over the last 24 hours, and the -2.9 L since admission. She states that her breathing is improved, denies chest pain, palpitations, abdominal pain. She is complaining of back pain. Objective Vital Signs Date Time Temp Pulse Resp B/P (MAP) Pulse Ox O2 Delivery O2 Flow Rate FiO2 08/04/17 14:00 109 08/04/17 14:00 98.1 65 126/56 (79) 89 08/04/17 08:25 Nasal Cannula 6.00 08/04/17 03:35 50 Intake and Output 08/04/17 08/04/17 08/05/17 08:00 16:00 00:00 Output Total 850 ml Balance -850 ml Result Diagram: 08/04/17 0524 08/04/17 0524 Other Results Laboratory Tests Test 08/04/17 12:38 Blood Gas Puncture Site RT RADIAL Blood Gas Patient Temperature 98.6 Blood Gas HCO3 32 mmol/L (22-26) Blood Gas Base Excess 5.1 mmol/L (-2-2) Blood Gas Oxygen Saturation 87 % (90-100) Arterial Blood pH 7.24 (7.380-7.420) Arterial Blood Partial Pressure CO2 77 mmHg (38-42) Arterial Blood Partial Pressure O2 59 mmHg (61-120) Arterial Blood Oxygen Content 13.8 Vol % (12.0-20.0) Arterial Blood Carboxyhemoglobin 1.7 % (0-4) Arterial Blood Methemoglobin 1.3 % (0-2) Blood Gas Hemoglobin 11.3 G/DL (12.0-16.0) Oxygen Delivery Device BIPAP Blood Gas Ventilator Setting 20/+10/70% Blood Gas Inspired Oxygen 70 % Imaging Last Impressions Chest X-Ray 08/02/17 0000 Signed Impressions: CONCLUSION: Left basilar atelectasis Last 24 hours Impressions Chest X-Ray 08/01/17 0000 Signed Impressions: CONCLUSION: Adequate placement of endotracheal tube. Bilateral patchy infiltrates. Objective Remarks GENERAL: Middle-aged lady, morbidly obese, awake, ill-appearing. SKIN: Warm and dry. HEAD: Normocephalic. EYES: Pupils are equal and reactive. Sclerae are anicteric. NECK: Supple, trachea midline. No JVD or lymphadenopathy. CARDIOVASCULAR: Heart sounds are regular, distant, no murmurs appreciated. RESPIRATORY: Good air entry bilateral. Decreased breath sounds at bases. Scattered wheezes. GASTROINTESTINAL: Abdomen soft, non-tender, obese. Bowel sounds are present. Colostomy with some liquid stool. MUSCULOSKELETAL: No cyanosis, trace edema. Warm and well perfused. NEURO EXAM: She is awake alert and oriented, motor 5 out of 5 over upper extremities and 4 out of 5 over lower extremities. A/P Assessment and Plan 1. Acute hypoxic and hypercapnic respiratory failure 2. ESBL E. coli UTI 3. Possible pneumonia 4. Acute COPD exacerbation 5. Likely KAILYN/OHS 6. Suspect right heart failure 7. Mild hyperkalemia 8. Anxiety and depression 1. Continue BiPAP at current settings. Due to improvement in patient's mental status, now being fully awake we will hold intubation and repeat an ABG later today 2. Continue vancomycin for now. Due to ESBL E. coli will start meropenem. Stop levofloxacin and aztreonam. Patient asked regarding penicillin allergy and she does not remember. She had this allergy as a child. She thinks she received cephalosporins without any reaction 3. Bronchodilators and Symbicort 4. Start IV steroids 5. Echocardiogram 6. Continue aspirin 7. On Elavil, Buspirone and Seroquel 8. N.p.o. for now 9. GI prophylaxis with famotidine 10. DVT prophylaxis with heparin No family present at bedside. In case she is sedated she would like to defer her medical decisions to Mike Gomez, her son. Patient is critically ill with hypercapnic and hypoxic respiratory failure, pneumonia, ESBL UTI, and she is at high risk for further decompensation requiring intubation and mechanical ventilation. I spent 32 minutes of critical care time, excluding procedures, managing BiPAP, fluids, antibiotics, discussing with patient and nursing staff, reviewing data and ordering investigations. Abhilash Lehman MD Aug 04, 2017 15:45
[2017-08-04] MEDS: methylPREDNISolone SOD SUCC 40 MG/1 ML VIAL IV PUSH SCH (16:28)
[2017-08-04] MEDS ORDERED: ASP: Documented ESBL, MDR A baumannii or P. aeruginosa PRN (16:30)
[2017-08-04] MEDS ORDERED: PHARMACY INFORMATION XX PRN (16:30)
[2017-08-04] MEDS ORDERED: ASP: Documented allergy to Penicillins or Cephalosporins PRN (16:30)
[2017-08-04] MEDS: MEROPENEM INJ 1,000 MG in SODIUM CHLORIDE 0.9% INJ 100 ML IV SCH (17:06)
[2017-08-04] MEDS ORDERED: FUROSEMIDE 40 MG/4 ML VIAL IV PUSH ONE (18:00)
[2017-08-04] MEDS: QUEtiapine FUMARATE 200 MG TAB PO SCH (20:26)
[2017-08-04] MEDS: FAMOTIDINE 20 MG TAB PO SCH (20:26)
[2017-08-04] MEDS: AMITRIPTYLINE HCL 75 MG TAB PO SCH (20:26)
[2017-08-04] MEDS: LORazepam 0.5 MG TAB PO PRN (20:42)
[2017-08-04 22:22] LABS: BICARBONATE 34.4 MEQ/L (21.0-32.0); CALCIUM 9.5 MG/DL (8.5-10.1); CREATININE 0.59 MG/DL (0.50-1.00)
[2017-08-05] VITALS (22 sets, daily range): BP systolic 123–169; BP diastolic 57–105; PULSE 93–110; RESP 24–35; TEMP 98.4–99; O2SAT 86–96
[2017-08-05] MEDS: MEROPENEM INJ 1,000 MG in SODIUM CHLORIDE 0.9% INJ 100 ML IV SCH ×3 (01:00→18:00)
[2017-08-05] MEDS: RESP: ALBUTEROL 2.5 MG/IPRATROPIUM 0.5 MG NEB (SCH) INH (03:24)
[2017-08-05] MEDS: CHLORHEXIDINE GLUCONATE 2 % 1 PACK (2 CLOTHS) TOP SCH (03:56)
[2017-08-05] MEDS ORDERED: PHARMACY ORDERED LAB ONE (05:00)
[2017-08-05 05:03] LABS: HEMATOCRIT 38.9 % (35.0-46.0); MEAN CELL VOLUME 86.9 FL (80.0-100.0); MEAN CORPUSCULAR HEMOGLOBIN 26.8 PG (27.0-34.0); MEAN CORPUSCULAR HGB CONC 30.9 % (32.0-36.0); PLATELET COUNT 155 TH/MM3 (150-450); RED BLOOD COUNT 4.47 MIL/MM3 (4.00-5.30); RED CELL DISTRIBUTION WIDTH 17.8 % (11.6-17.2); WHITE BLOOD COUNT 6.6 TH/MM3 (4.0-11.0)
[2017-08-05] MEDS: HEPARIN SODIUM - SQ 10,000 UNITS/ML VIAL SQ SCH ×3 (05:28→22:00)
[2017-08-05] MEDS: methylPREDNISolone SOD SUCC 40 MG/1 ML VIAL IV PUSH SCH ×5 (05:29→22:41)
[2017-08-05 06:21] LABS: BICARBONATE 32.8 MEQ/L (21.0-32.0); CALCIUM 8.9 MG/DL (8.5-10.1); CREATININE 0.54 MG/DL (0.50-1.00)
[2017-08-05 06:29] LABS: RANDOM VANCOMYCIN 15.8 COMMENT
[2017-08-05] MEDS: CHLORHEXIDINE 0.12% (ORAL KIT) 15 ML CUP MT SCH ×2 (07:58→20:00)
[2017-08-05] MEDS: busPIRone HCL 10 MG TAB PO SCH (08:11)
[2017-08-05] MEDS: GABAPENTIN 300 MG CAP PO SCH ×3 (08:11→18:00)
[2017-08-05] MEDS: AMITRIPTYLINE HCL 25 MG TAB PO SCH (08:11)
[2017-08-05] MEDS: ASPIRIN 81 MG CHEW TAB CHEW SCH (08:11)
[2017-08-05] MEDS: FAMOTIDINE 20 MG TAB PO SCH ×2 (08:11→20:04)
[2017-08-05] MEDS: CYANOCOBALAMIN 1,000 MCG TAB PO SCH (08:11)
[2017-08-05] MEDS: PREGABALIN 100 MG CAP PO SCH ×3 (08:12→18:00)
[2017-08-05] MEDS: DOCUSATE SODIUM 50 MG/SENNA 8.6 MG TAB PO SCH ×2 (08:12→20:04)
[2017-08-05] MEDS: RESP: ALBUTEROL 2.5 MG/IPRATROPIUM 0.5 MG NEB (PRN) INH ×2 (08:15→20:32)
[2017-08-05] MEDS: QUEtiapine FUMARATE 100 MG TAB PO SCH (09:00)
[2017-08-05] MEDS ORDERED: FUROSEMIDE 40 MG/4 ML VIAL IV PUSH ONE ×2 (09:00→20:00)
[2017-08-05] MEDS: SODIUM CHLORIDE 0.9% FLUSH 10 ML FLUSH IV FLUSH SCH ×2 (09:00→20:05)
--- NOTE | 2017-08-05 09:03 | HHI.CCPN ---
Subjective Remarks/Hospital Course 08/01: 57-year-old morbidly obese female, intermediate resident, the EMT was called for respiratory distress, patient was obtunded with CO2 140 and was intubated by paramedics. No further history is obtainable. 08/04: Patient was admitted on 08/01 with acute hypoxic and hypercapnic respiratory failure and she was successfully extubated that morning. She was diagnosed with possible pneumonia and ESBL E coli UTI. Her hospitalization was significant for persistent hypoxia requiring 5-6 L of oxygen through the nasal cannula. This morning, patient became increasingly lethargic and hypoxic therefore she was placed on BiPAP. Current settings 20/10/70%. An ABG was done which showed hypercapnia therefore our service was called to help with the management. Of note, patient was treated with triple antibiotic therapy for possible pneumonia and UTI. Patient currently seen at bedside, she is fully awake, responding appropriately to questions, on BiPAP, pulse ox 94% on 0.7 FiO2. She tells me that she was previously intubated and if needed she would agree with intubation. T-max of 98.7, urine output 2.5 L over the last 24 hours, and the -2.9 L since admission. She states that her breathing is improved, denies chest pain, palpitations, abdominal pain. She is complaining of back pain. 08/05: No events over the night. Patient became more lethargic last evening after narcotics. This a.m. she is fully awake, following commands, conversant, on BiPAP. FiO2 at 0.8 with SPO2 98-99%. T-max of 99.2. Good response to IV Lasix last evening with urine output of 2.8 L. She states that her breathing is about the same, complaints of right lower extremity pain. Full review of systems is unobtainable since patient is on BiPAP and it's difficult to communicate Objective Vital Signs Date Time Temp Pulse Resp B/P (MAP) Pulse Ox O2 Delivery O2 Flow Rate FiO2 08/05/17 08:16 94 80 08/05/17 06:00 97 08/05/17 04:00 98.6 35 149/78 (101) 08/04/17 23:40 Bi-Pap 08/04/17 08:25 6.00 Intake and Output 08/05/17 08/05/17 08/06/17 08:00 16:00 00:00 Intake Total 200 ml Output Total 2000 ml Balance -1800 ml Result Diagram: 08/05/17 0451 08/05/17 0538 Other Results Blood cultures from 08/01 had no growth to date Urine culture from 08/01 is growing ESBL E. coli Laboratory Tests Test 08/04/17 12:38 08/04/17 20:08 08/04/17 22:45 Blood Gas Puncture Site RT RADIAL RT RADIAL RT RADIAL Blood Gas Patient Temperature 98.6 98.6 98.6 Blood Gas HCO3 32 mmol/L (22-26) 35 mmol/L (22-26) 35 mmol/L (22-26) Blood Gas Base Excess 5.1 mmol/L (-2-2) 8.1 mmol/L (-2-2) 7.4 mmol/L (-2-2) Blood Gas Oxygen Saturation 87 % (90-100) 90 % (90-100) 92 % (90-100) Arterial Blood pH 7.24 (7.380-7.420) 7.27 (7.380-7.420) 7.22 (7.380-7.420) Arterial Blood Partial Pressure CO2 77 mmHg (38-42) 78 mmHg (38-42) 89 mmHg (38-42) Arterial Blood Partial Pressure O2 59 mmHg (61-120) 70 mmHg (61-120) 79 mmHg (61-120) Arterial Blood Oxygen Content 13.8 Vol % (12.0-20.0) 15.6 Vol % (12.0-20.0) 14.9 Vol % (12.0-20.0) Arterial Blood Carboxyhemoglobin 1.7 % (0-4) 1.8 % (0-4) 1.5 % (0-4) Arterial Blood Methemoglobin 1.3 % (0-2) 1.3 % (0-2) 1.4 % (0-2) Blood Gas Hemoglobin 11.3 G/DL (12.0-16.0) 12.2 G/DL (12.0-16.0) 11.5 G/DL (12.0-16.0) Oxygen Delivery Device BIPAP BiPAP BiPAP Blood Gas Ventilator Setting 20/+10/70% 20IPAP/10EPAP 20IPAP/10EPAP Blood Gas Inspired Oxygen 70 % 80 % 80 % Imaging Last Impressions Chest X-Ray 08/02/17 0000 Signed Impressions: CONCLUSION: Left basilar atelectasis Last 24 hours Impressions Chest X-Ray 08/01/17 0000 Signed Impressions: CONCLUSION: Adequate placement of endotracheal tube. Bilateral patchy infiltrates. Objective Remarks GENERAL: Middle-aged lady, morbidly obese, awake, ill-appearing. SKIN: Warm and dry. No cyanosis. HEAD: Normocephalic. EYES: Pupils are equal and reactive. Sclerae are anicteric. NECK: Supple, no rigidity, trachea midline. Unable to appreciate neck vein distention due to body habitus. CARDIOVASCULAR: Regular S1 and S2, distant, no murmurs appreciated. RESPIRATORY: Improved air entry bilateral. Decreased breath sounds at bases. No wheezes. GASTROINTESTINAL: Abdomen soft, non-tender, obese. Bowel sounds are present. Colostomy with some liquid stool. MUSCULOSKELETAL: No cyanosis, trace edema. Warm and well perfused. NEURO EXAM: She is awake alert and oriented, motor 5 out of 5 over upper extremities and 4 out of 5 over lower extremities. A/P Assessment and Plan 1. Acute hypoxic and hypercapnic respiratory failure -unchanged 2. ESBL E. coli UTI 3. Possible pneumonia 4. Acute COPD exacerbation 5. Likely KAILYN/OHS 6. Suspect right heart failure 7. Mild hyperkalemia -unchanged 8. Anxiety and depression 1. Continue BiPAP at current settings. Check ABG now. FiO2 tapered to 0.6 with O2 sat around 93-94%. Titrate O2 to keep SPO2 between 88-92% 2. Continue meropenem and Vanco 3. Bronchodilators and Symbicort 4. Continue IV steroids 5. Echocardiogram 6. Lasix 40 IV 1 dose today 7. Repeat labs including potassium at 1 PM 8. Monitor urine output 9. Continue aspirin 10. On Elavil, Buspirone and Seroquel 11. N.p.o. for now 12. GI prophylaxis with famotidine 13. DVT prophylaxis with heparin No family present at bedside. In case she is incapacitated she would like to defer her medical decisions to Mike Gomez, her son. Patient is critically ill with hypercapnic and hypoxic respiratory failure, pneumonia, ESBL UTI, and she is at high risk for further decompensation requiring intubation and mechanical ventilation. Abhilash Lehman MD Aug 05, 2017 09:03
[2017-08-05] MEDS: BUDESONIDE-FORMOTEROL 80/4.5 MCG INHALER INH SCH ×2 (09:31→20:04)
--- NOTE | 2017-08-05 10:05 | PD.ID.CON ---
History of Present Illness Service ID Consult Requested By Reason for Consult Evaluation and Mment of ESBL UTI Primary Care Physician Og Birmingham MD Diagnoses: History of Present Illness Most of the history was prior medical records patient is a poor historian. Ms. Jason Renee is a 57-year-old female with past medical history significant for morbid obesity, sleep apnea, COPD who has been admitted multiple times to the hospital for presented to the ER over the last several years. Patients records indicate history of multiple intubations in past for COPD exacerbations. Patient also has a history of MRSA in the sputum as well as ESBL Escherichia coli in the urine in the past. Patient is a resident of [facility]. EMT was called for respiratory distress, patient was obtunded with CO2 140 and was intubated by paramedics. Patient needed intubation but was extubated next day. Patient is now on BiPAP and still needs high oxygen. Infectious disease is consulted for evaluation and management of pneumonia and UTI ESBL positive. At the time of my evaluation patient is in the ICU currently sitting in chair. Able to talk when mask taken off. No on pressors. UO ok. Not much stool in ostomy bag. Reports bloating of abdomen. 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 Reported history of gastric bypass this remains to be confirmed. Reported Medications Reported Meds & Active Scripts Active Bactroban Nasal Oint (Mupirocin Nasal Oint) 2% Oint 1 Applic EACH NARE BID Single-use tubes. end date of use 06/03/17 apply intranasally bid Ativan (Lorazepam) 0.5 Mg Tab 0.5 Mg PO Q12HR PRN Symbicort Inh (Budesonide/Formoterol Fumarate) 80-4.5 Mcg/Act Aero 2 Puff INH Q12HR Duoneb (Ipratropium-Albuterol Neb) 0.5-2.5 Mg/3 Ml Neb 1 Ampule INH Q6HR PRN 7 Days Reported Zithromax (Azithromycin) 250 Mg Tab 250 Mg PO DIRECTED Take 2 tabs (500 mg) on day 1 then 1 tab daily x 4 days. Aplisol (Tuberculin Ppd) 5 Tub. Unit/0.1 Ml Inj Diltiazem (Diltiazem HCl) 60 Mg Tab 60 Mg PO DAILY Ibuprofen 400 Mg Tab 400 Mg PO Q8H PRN Omeprazole 20 Mg Tab 20 Mg PO DAILY Biotene Moisturizing Mouth [place] Liq (Artificial Saliva Liq) 1 [place] 3 [place] PO BID Vitamin B-12 (Cyanocobalamin) 500 Mcg Tab 500 Mcg PO DAILY Mucinex Dm ER 1,200-60 mg Tab (Guaifenesin/Dextromethorphan) 1,200 Mg-60 Mg Tab.er.12h 600 Mg PO BID Buspirone (Buspirone HCl) 10 Mg Tab 10 Mg PO DAILY Lyrica (Pregabalin) 75 Mg Cap 100 Mg PO TID Quetiapine (Quetiapine Fumarate) 200 Mg Tab 200 Mg PO HS Quetiapine (Quetiapine Fumarate) 100 Mg Tab 100 Mg PO DAILY Neurontin (Gabapentin) 300 Mg Cap 1,200 Mg PO TID Amitriptyline (Amitriptyline HCl) 25 Mg Tab 25 Mg PO AC BREAKFAST Albuterol Neb (Albuterol Sulfate) 2.5 Mg/3 Ml Neb 2.5 Mg NEB Q8HR NEB PRN Aspirin 81 Mg Chew 81 Mg CHEW DAILY Amitriptyline (Amitriptyline HCl) 50 Mg Tab 75 Mg PO HS 25mg tab give 25mg before breakfast 75mg tablet give 1 tablet at hs Active Ordered Medications Current Medications Medications (Trade) Dose Ordered Sig/Elliot Route Start Time Stop Time Status Last Admin (Elavil) 75 mg HS PO 08/01/17 21:00 08/04/17 20:26 (Aspirin Chew) 81 mg DAILY CHEW 08/01/17 09:00 08/05/17 08:11 (Symbicort 80-4.5 Mcg Inh) 2 puff Q12HR INH 08/01/17 09:00 08/05/17 09:31 (Buspar) 10 mg DAILY PO 08/01/17 09:00 08/05/17 08:11 (Vitamin B12) 500 mcg DAILY PO 08/01/17 09:00 08/05/17 08:11 (Neurontin) 1,200 mg TID PO 08/01/17 09:00 08/05/17 08:11 (Ativan) 0.5 mg Q12HR PRN PO 08/01/17 05:30 08/04/17 20:42 (Lyrica) 100 mg TID PO 08/01/17 09:00 08/05/17 08:12 (SEROquel) 100 mg DAILY PO 08/01/17 09:00 08/04/17 08:27 (SEROquel) 200 mg HS PO 08/01/17 21:00 08/04/17 20:26 Patient Own Medication PT OWN MED: BID PO 08/01/17 09:00 Future Hold (Elavil) 25 mg AC BREAKFAST PO 08/01/17 07:00 08/05/17 08:11 (NS Flush) 2 ml UNSCH PRN IV FLUSH 08/01/17 05:30 (NS Flush) 2 ml BID IV FLUSH 08/01/17 09:00 08/05/17 09:00 (Tylenol) 650 mg Q6H PRN PO 08/01/17 05:30 (Zofran Inj) 4 mg Q6H PRN IV PUSH 08/01/17 05:30 (Duoneb Neb) 1 ampule Q2HR NEB PRN INH 08/01/17 05:30 08/05/17 08:15 (Heparin Inj) 5,000 units Q8HR SQ 08/01/17 06:00 08/05/17 05:28 ([facility] Nursing Information) 1 Q361D XX 08/01/17 05:30 (Chlorhexidine 2% Cloth) 3 pack Taper DAILY@04 TOP 08/02/17 04:00 07/29/18 03:59 08/05/17 03:56 (Chlorhexidine 2% Cloth) 3 pack UNSCH PRN TOP 08/01/17 05:30 (Bertha-Colace) 1 tab BID PO 08/01/17 09:00 08/05/17 08:12 (Milk Of Magnesia Liq) 30 ml Q12H PRN PO 08/01/17 05:30 (Senokot) 17.2 mg Q12H PRN PO 08/01/17 05:30 (Dulcolax Supp) 10 mg DAILY PRN RECTAL 08/01/17 05:30 (Lactulose Liq) 30 ml DAILY PRN PO 08/01/17 05:30 (Peridex 0.12% Liq) 15 ml BID@08,20 MT 08/01/17 08:00 08/03/17 10:01 Fentanyl Citrate 250 ml @ 5 mls/hr TITRATE PRN IV 08/01/17 05:30 ([place] 5-325 Mg) 1 tab Q4H PRN PO 08/02/17 16:45 08/04/17 20:42 (Pepcid) 20 mg BID PO 08/04/17 21:00 08/05/17 08:11 (SoluMEDROL INJ) 40 mg Q6HR IV PUSH 08/04/17 18:00 08/05/17 05:29 (ASP Crit: Doc allergy to Penicillin/ Cephalosp) 1 UNSCH X1 PRN .XX 08/04/17 16:30 08/05/17 16:29 (ASP Crit: Doc ESBL, MDR A baumannii or P aer) 1 UNSCH X1 PRN .XX 08/04/17 16:30 08/05/17 16:29 ([facility] Pharmacy Information) 1 UNSCH X1 PRN XX 08/04/17 16:30 08/05/17 16:29 Meropenem 1000 mg/ Sodium Chloride 100 ml @ 200 mls/hr Q8H IV 08/04/17 17:00 08/05/17 09:31 Family History reviewed past notes [place]. Social History Resident of senior care. Has daughter who visited her last admission/ Physical Exam Vital Signs Vital Signs Date Time Temp Pulse Resp B/P (MAP) Pulse Ox O2 Delivery O2 Flow Rate FiO2 08/05/17 09:01 108 33 146/86 (106) 92 08/05/17 08:16 94 80 08/05/17 08:10 101 30 141/65 (90) 86 08/05/17 08:00 100 27 155/105 (122) 86 08/05/17 07:00 94 Bi-Pap 6.00 50 08/05/17 06:00 97 08/05/17 04:00 93 08/05/17 04:00 98.6 93 35 149/78 (101) 89 08/05/17 03:24 96 50 08/05/17 02:00 93 08/05/17 00:00 99.0 99 24 123/57 (79) 90 08/05/17 00:00 99 08/04/17 23:40 93 Bi-Pap 65 08/04/17 23:21 90 65 08/04/17 22:43 92 80 08/04/17 22:00 109 08/04/17 20:56 92 Bi-Pap 80 08/04/17 20:00 99.2 119 36 131/63 (85) 92 08/04/17 20:00 119 08/04/17 19:50 92 80 08/04/17 18:00 112 08/04/17 17:29 37 08/04/17 16:35 93 70 08/04/17 16:00 115 08/04/17 16:00 98.0 115 40 84 08/04/17 14:00 109 08/04/17 14:00 98.1 109 65 126/56 (79) 89 08/04/17 11:08 104 32 125/73 (90) 95 08/04/17 11:08 104 Physical Exam GENERAL: Morbidly obese patient, in no apparent distress. SKIN: No rashes, ecchymoses or lesions. Cool and dry. HEAD: Atraumatic. Normocephalic. No temporal or scalp tenderness. EYES: Pupils equal round and reactive. Extraocular motions intact. No scleral icterus. No injection or drainage. ENT: Nose without bleeding, purulent drainage or septal hematoma. Throat without erythema, tonsillar hypertrophy or exudate. Uvula midline. Airway patent. NECK: Trachea midline. Supple, nontender, no meningeal signs. Large neck. CARDIOVASCULAR: HS audible. RESPIRATORY: Clear to auscultation. Breath sounds equal bilaterally but decreased in the bases. MUSCULOSKELETAL: Extremities without clubbing, cyanosis, or edema. NEUROLOGICAL: Awake and alert. Non focal exam Psych cooperative IV line sites with no e.o infection. Laboratory Laboratory Tests Test 08/04/17 12:20 08/04/17 12:38 08/04/17 20:08 08/04/17 21:10 Random Vancomycin Level 28.0 Blood Gas Puncture Site RT RADIAL RT RADIAL Blood Gas Patient Temperature 98.6 98.6 Blood Gas HCO3 32 35 Blood Gas Base Excess 5.1 8.1 Blood Gas Oxygen Saturation 87 90 Arterial Blood pH 7.24 7.27 Arterial Blood Partial Pressure CO2 77 78 Arterial Blood Partial Pressure O2 59 70 Arterial Blood Oxygen Content 13.8 15.6 Arterial Blood Carboxyhemoglobin 1.7 1.8 Arterial Blood Methemoglobin 1.3 1.3 Blood Gas Hemoglobin 11.3 12.2 Oxygen Delivery Device BIPAP BiPAP Blood Gas Ventilator Setting 20/+10/70% 20IPAP/10EPAP Blood Gas Inspired Oxygen 70 80 Blood Urea Nitrogen 11 Creatinine 0.59 Random Glucose 158 Calcium Level 9.5 Sodium Level 142 Potassium Level 4.0 Chloride Level 101 Carbon Dioxide Level 34.4 Anion Gap 7 Estimat Glomerular Filtration Rate 105 Test 08/04/17 22:45 08/05/17 04:51 08/05/17 05:38 08/05/17 09:00 Blood Gas Puncture Site RT RADIAL RT RADIAL Blood Gas Patient Temperature 98.6 98.6 Blood Gas HCO3 35 34 Blood Gas Base Excess 7.4 8.6 Blood Gas Oxygen Saturation 92 93 Arterial Blood pH 7.22 7.36 Arterial Blood Partial Pressure CO2 89 62 Arterial Blood Partial Pressure O2 79 75 Arterial Blood Oxygen Content 14.9 15.8 Arterial Blood Carboxyhemoglobin 1.5 1.5 Arterial Blood Methemoglobin 1.4 1.3 Blood Gas Hemoglobin 11.5 12.1 Oxygen Delivery Device BiPAP BIPAP Blood Gas Ventilator Setting 20IPAP/10EPAP IPAP+20/EPAP+10 Blood Gas Inspired Oxygen 80 60 White Blood Count 6.6 Red Blood Count 4.47 Hemoglobin 12.0 Hematocrit 38.9 Mean Corpuscular Volume 86.9 Mean Corpuscular Hemoglobin 26.8 Mean Corpuscular Hemoglobin Concent 30.9 Red Cell Distribution Width 17.8 Platelet Count 155 Mean Platelet Volume 10.0 Lactic Acid Level 1.2 Blood Urea Nitrogen 12 Creatinine 0.54 Random Glucose 120 Calcium Level 8.9 Sodium Level 144 Potassium Level 5.3 Chloride Level 104 Carbon Dioxide Level 32.8 Anion Gap 7 Estimat Glomerular Filtration Rate 116 Random Vancomycin Level 15.8 Date/Time Source Procedure Growth Status 08/01/17 02:30 Blood Peripheral Aerobic Blood Culture - Preliminary NO GROWTH IN 3 DAYS Resulted 08/01/17 02:30 Blood Peripheral Anaerobic Blood Culture - Preliminary NO GROWTH IN 3 DAYS Resulted 08/01/17 02:50 Urine Catheterized Urine Urine Culture - Final Escherichia Coli Esbl Positive Complete Result Diagram: 08/05/17 0451 08/05/17 0538 Imaging Last Impressions Chest X-Ray 08/02/17 0000 Signed Impressions: CONCLUSION: Left basilar atelectasis Assessment and Plan Assessment and Plan ESBL E.coli UTI H/o MRSA pneumonia and ESBL E coli UTI. Sleep apnea Morbid obesity Acute COPD exacerbation Recs Continue Meropenem IV for now. DC vanco IV CXR minimal atelectasis. No expectoration. Repeat UA straight cath Follow cultures Follow clinically/. haylee Ramos above plan agrees. Ani Castañeda RN, MD Aug 05, 2017 10:05
--- NOTE | 2017-08-05 11:49 | RADRPT ---
EXAM DATE: 08/05/2017 11:43 AM EDT AGE/SEX: 57 years / Female INDICATIONS: Abdominal distention. CLINICAL DATA: This is the patient's subsequent encounter. Patient reports that signs and symptoms h ave been present for 1 day and indicates a pain score of Nonresponsive. MEDICAL/SURGICAL HISTORY: . Chronic obstructive pulmonary disease. Gastric bypass. COMPARISON: No prior exams available for comparison. FINDINGS: The abdominal bowel gas pattern is normal. No abnormal masses, calcifications, or organomegaly is s een. The osseous structures are unremarkable. The limited portion of lung base visualized demonstrates consolidation in the left lower lobe. CONCLUSION: Benign-appearing bowel gas pattern. There is atelectasis or consolidation in the left lower lobe. Electronically signed by: Jose Elias Garza MD 08/05/2017 11:48 AM EDT
[2017-08-05 12:49] LABS: BILIRUBIN, URINE NEG (NEG); BLOOD, URINE SMALL (NEG); GLUCOSE,URINE 50 mg/dL (NEG); KETONE, URINE 20 mg/dL (NEG); NITRITE,URINE NEG (NEG); SQUAMOUS EPITHELIAL CELL URINE 7 /hpf (0-5); URINE COLOR Red (YELLW/STRAW); URINE LEUKOCYTE ESTERASE NEG (NEG)
[2017-08-05 14:08] LABS: BICARBONATE 35.8 MEQ/L (21.0-32.0); CALCIUM 9.8 MG/DL (8.5-10.1); CREATININE 0.59 MG/DL (0.50-1.00); MAGNESIUM 2.3 MG/DL (1.5-2.5); PHOSPHORUS 1.6 MG/DL (2.5-4.9)
[2017-08-05] MEDS ORDERED: SODIUM PHOSPHATE INJ 15 MMOL in SODIUM CHLORIDE 0.9% INJ 150 ML IV ONE (18:00)
[2017-08-05] MEDS: AMITRIPTYLINE HCL 75 MG TAB PO SCH (20:04)
[2017-08-05] MEDS: QUEtiapine FUMARATE 200 MG TAB PO SCH (20:04)
[2017-08-05] MEDS: ACETAMINOPHEN/HYDROcodone 325 MG/5 MG TAB PO PRN (21:18)
[2017-08-06] VITALS (20 sets, daily range): BP systolic 117–178; BP diastolic 56–83; PULSE 83–106; RESP 20–39; TEMP 97.6–98.7; O2SAT 93–99
[2017-08-06] MEDS: MEROPENEM INJ 1,000 MG in SODIUM CHLORIDE 0.9% INJ 100 ML IV SCH ×4 (00:36→23:08)
[2017-08-06] MEDS: CHLORHEXIDINE GLUCONATE 2 % 1 PACK (2 CLOTHS) TOP SCH (04:00)
[2017-08-06 04:34] LABS: HEMATOCRIT 37.5 % (35.0-46.0); HEMOGLOBIN 11.7 GM/DL (11.6-15.3); MEAN CELL VOLUME 86.6 FL (80.0-100.0); MEAN CORPUSCULAR HGB CONC 31.2 % (32.0-36.0); MEAN PLATELET VOLUME 9.8 FL (7.0-11.0); PLATELET COUNT 172 TH/MM3 (150-450); RED BLOOD COUNT 4.32 MIL/MM3 (4.00-5.30); RED CELL DISTRIBUTION WIDTH 17.1 % (11.6-17.2); WHITE BLOOD COUNT 6.6 TH/MM3 (4.0-11.0)
--- NOTE | 2017-08-06 04:53 | RADRPT ---
EXAM DATE: 08/06/2017 4:32 AM EDT AGE/SEX: 57 years / Female INDICATIONS: Shortness of breath, possible pulmonary disease. CLINICAL DATA: This is the patient's subsequent encounter. Patient reports that signs and symptoms h ave been present for 1 week and indicates a pain score of 0/10. MEDICAL/SURGICAL HISTORY: Chronic obstructive pulmonary disease. Gastric bypass. COMPARISON: [facility] [place], CHEST SINGLE AP, 08/02/2017. . FINDINGS: A single AP view of the chest demonstrates the lungs to be symmetrically aerated without evidence of mass, infiltrate or effusion except for some indistinctness of left hemidiaphragm. The cardiomediast inal contours are unremarkable. Osseous structures are intact. CONCLUSION: Indistinct left hemidiaphragm likely atelectasis. Lungs are otherwise clear. Electronically signed by: Luis Raymond MD 08/06/2017 4:52 AM EDT
[2017-08-06 04:56] LABS: BICARBONATE 33.6 MEQ/L (21.0-32.0); CALCIUM 9.3 MG/DL (8.5-10.1); CREATININE 0.56 MG/DL (0.50-1.00)
[2017-08-06] MEDS: HEPARIN SODIUM - SQ 10,000 UNITS/ML VIAL SQ SCH ×3 (05:08→20:28)
[2017-08-06] MEDS: methylPREDNISolone SOD SUCC 40 MG/1 ML VIAL IV PUSH SCH ×3 (05:08→20:28)
[2017-08-06] MEDS: LORazepam 0.5 MG TAB PO PRN (05:08)
[2017-08-06 05:48] LABS: PHOSPHORUS 3.2 MG/DL (2.5-4.9)
[2017-08-06] MEDS ORDERED: POTASSIUM CHLORIDE 20 MEQ CONTROLLED RELEASE TAB PO ONE (06:00)
[2017-08-06] MEDS: AMITRIPTYLINE HCL 25 MG TAB PO SCH (06:26)
[2017-08-06] MEDS: CHLORHEXIDINE 0.12% (ORAL KIT) 15 ML CUP MT SCH ×2 (08:00→20:00)
[2017-08-06] MEDS: GABAPENTIN 300 MG CAP PO SCH ×3 (08:48→17:56)
[2017-08-06] MEDS: PREGABALIN 100 MG CAP PO SCH ×3 (08:48→17:56)
[2017-08-06] MEDS: DOCUSATE SODIUM 50 MG/SENNA 8.6 MG TAB PO SCH ×2 (08:48→20:28)
[2017-08-06] MEDS: CYANOCOBALAMIN 1,000 MCG TAB PO SCH (08:48)
[2017-08-06] MEDS: FAMOTIDINE 20 MG TAB PO SCH ×2 (08:48→20:28)
[2017-08-06] MEDS: QUEtiapine FUMARATE 100 MG TAB PO SCH (08:48)
[2017-08-06] MEDS: BUDESONIDE-FORMOTEROL 80/4.5 MCG INHALER INH SCH ×2 (08:48→20:27)
[2017-08-06] MEDS: busPIRone HCL 10 MG TAB PO SCH (08:48)
[2017-08-06] MEDS: ASPIRIN 81 MG CHEW TAB CHEW SCH (08:49)
[2017-08-06] MEDS: SODIUM CHLORIDE 0.9% FLUSH 10 ML FLUSH IV FLUSH SCH ×2 (08:50→20:27)
--- NOTE | 2017-08-06 09:23 | HHI.CCPN ---
Subjective Remarks/Hospital Course 08/01: 57-year-old morbidly obese female, [place] [facility] resident, the EMT was called for respiratory distress, patient was obtunded with CO2 140 and was intubated by paramedics. No further history is obtainable. 08/04: Patient was admitted on 08/01 with acute hypoxic and hypercapnic respiratory failure and she was successfully extubated that morning. She was diagnosed with possible pneumonia and ESBL E coli UTI. Her hospitalization was significant for persistent hypoxia requiring 5-6 L of oxygen through the nasal cannula. This morning, patient became increasingly lethargic and hypoxic therefore she was placed on BiPAP. Current settings 20/10/70%. An ABG was done which showed hypercapnia therefore our service was called to help with the management. Of note, patient was treated with triple antibiotic therapy for possible pneumonia and UTI. Patient currently seen at bedside, she is fully awake, responding appropriately to questions, on BiPAP, pulse ox 94% on 0.7 FiO2. She tells me that she was previously intubated and if needed she would agree with intubation. T-max of 98.7, urine output 2.5 L over the last 24 hours, and the -2.9 L since admission. She states that her breathing is improved, denies chest pain, palpitations, abdominal pain. She is complaining of back pain. 08/05: No events over the night. Patient became more lethargic last evening after narcotics. This a.m. she is fully awake, following commands, conversant, on BiPAP. FiO2 at 0.8 with SPO2 98-99%. T-max of 99.2. Good response to IV Lasix last evening with urine output of 2.8 L. She states that her breathing is about the same, complaints of right lower extremity pain. 08/06: Patient is significantly improved. Over the night she was on BiPAP until around 4 AM when she was placed back on high flow nasal cannula at 40 L/min and 50%. She is tolerating HF NC well. T-max of 98.7. Diuresed very well with Lasix twice daily yesterday, with urine output greater than 4 L over the last 24 hours. She is awake, conversant, states that her shortness of breath is improved, denies chest pain, palpitations, abdominal pain. 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 Objective Vital Signs Date Time Temp Pulse Resp B/P (MAP) Pulse Ox O2 Delivery O2 Flow Rate FiO2 08/06/17 06:00 92 08/06/17 04:00 98.7 26 178/83 (114) 93 08/06/17 03:24 High Flow Nasal Cannula 40.00 50 Intake and Output 08/06/17 08/06/17 08/07/17 08:00 16:00 00:00 Intake Total 555 ml Output Total 1650 ml Balance -1095 ml Result Diagram: 08/06/17 0351 08/06/17 0351 Other Results Laboratory Tests Test 08/06/17 06:18 Blood Gas Puncture Site RT RADIAL Blood Gas Patient Temperature 98.6 Blood Gas HCO3 38 mmol/L (22-26) Blood Gas Base Excess 13.1 mmol/L (-2-2) Blood Gas Oxygen Saturation 86 % (90-100) Arterial Blood pH 7.42 (7.380-7.420) Arterial Blood Partial Pressure CO2 61 mmHg (38-42) Arterial Blood Partial Pressure O2 55 mmHg (61-120) Arterial Blood Oxygen Content 14.8 Vol % (12.0-20.0) Arterial Blood Carboxyhemoglobin 1.0 % (0-4) Arterial Blood Methemoglobin 1.4 % (0-2) Blood Gas Hemoglobin 12.2 G/DL (12.0-16.0) Oxygen Delivery Device HFNC Blood Gas Liter Flow 40 L/M Blood Gas Inspired Oxygen 50 % Imaging Last Impressions Chest X-Ray 08/02/17 0000 Signed Impressions: CONCLUSION: Left basilar atelectasis Last 24 hours Impressions Chest X-Ray 08/01/17 0000 Signed Impressions: CONCLUSION: Adequate placement of endotracheal tube. Bilateral patchy infiltrates. Objective Remarks GENERAL: Middle-aged lady, morbidly obese, awake, ill-appearing. SKIN: No rashes appreciated. No cyanosis. HEAD: Normocephalic. EYES: Pupils are equal and reactive. Sclerae are anicteric. NECK: Supple, no rigidity, trachea midline. Unable to appreciate neck vein distention due to body habitus. CARDIOVASCULAR: Regular heart sounds, distant, no murmurs appreciated. RESPIRATORY: Improved air entry bilateral. Decreased breath sounds at bases. No wheezes. GASTROINTESTINAL: Abdomen soft, non-tender, obese. Bowel sounds are present. Colostomy with some stool. MUSCULOSKELETAL: No edema. Warm and well perfused. Peripheral pulses are present NEURO EXAM: She is awake alert and oriented, motor 5 out of 5 over upper extremities and 4 out of 5 over lower extremities. A/P Assessment and Plan 1. Acute hypoxic and hypercapnic respiratory failure -slowly improving, tolerating high flow nasal cannula during daytime and BiPAP at night. ABG significantly improved 2. ESBL E. coli UTI -repeat UA with minimal pyuria 3. Possible pneumonia 4. Acute COPD exacerbation -improved 5. Likely KAILYN/OHS 6. Suspect right heart failure -diuresed well 7. Mild hyperkalemia -resolved 8. Anxiety and depression 1. Continue HF NC during daytime and slowly taper FiO2 to keep SPO2 between 88 and 92%. BiPAP ordered at night 2. Continue meropenem, ID following 3. Bronchodilators and Symbicort 4. Continue IV steroids but taper dose to 40 IV every 8 hours 5. Echocardiogram 6. Hold Lasix today 7. Monitor urine output 8. Continue aspirin 9. On Elavil, Buspirone and Seroquel 10. Advance diet 11. GI prophylaxis with famotidine 12. DVT prophylaxis with heparin No family present at bedside. In case she is incapacitated she would like to defer her medical decisions to Mike Gomez, her son. We will ask pulmonary to evaluate the patient and we will transition care to hospitalist service. Please call back with questions or if additional help is needed. Abhilash Lehman MD Aug 06, 2017 09:23
--- NOTE | 2017-08-06 13:08 | ECHRPT ---
Indication: CONCLUSIONS The left ventricular systolic function is normal with an estimated ejection fraction in the range of 55-60%. Normal left ventricular size. Wall thickness is normal. The aortic root and proximal ascending aorta are not well visualized. Moderate thickening of the mitral valve leaflets. [id number] mitral valve regurgitation. Mitral valve mean gradient is 6 mmHg consistent with mild stenosis The mitral valve area by Pressure Halftime Method is 1.71__ cm. . There is no pericardial effusion. BP: / HR: Rhythm: MEASUREMENTS (Male / Female) Normal Values Technical Quality: 2D ECHO LV Diastolic Diameter PLAX 5.0 cm 4.2 - 5.9 / 3.9 - 5.3 cm LV Systolic Diameter PLAX 3.6 cm IVS Diastolic Thickness 1.1 cm 0.6 - 1.0 / 0.6 - 0.9 cm LVPW Diastolic Thickness 1.2 cm 0.6 - 1.0 / 0.6 - 0.9 cm LV Relative Wall Thickness 0.5 M-MODE Aortic Root Diameter MM 3.2 cm LA Systolic Diameter MM 4.3 cm LA Ao Ratio MM 1.3 AV Cusp Separation MM 1.6 cm DOPPLER MV Peak Velocity 185.0 cm/s MV Peak Gradient 13.7 mmHg MV Mean Velocity 106.0 cm/s MV Mean Gradient 6.0 mmHg MV Area PHT 1.7 cm FINDINGS LEFT VENTRICLE The left ventricular systolic function is normal with an estimated ejection fraction in the range of 55-60%. Normal left ventricular size. Wall thickness is normal. RIGHT VENTRICLE Normal right ventricular size and systolic function. LEFT ATRIUM The left atrial size is normal. RIGHT ATRIUM The right atrial size is normal. ATRIAL SEPTUM Normal atrial septal thickness without atrial level shunting by limited color doppler interrogation. AORTA The aortic root and proximal ascending aorta are not well visualized. MITRAL VALVE Moderate thickening of the mitral valve leaflets. [id number] mitral valve regurgitation. Mitral valve mean gradient is 6 mmHg. The mitral valve area by Pressure Halftime Method is 1.71__ cm. AORTIC VALVE Trileaflet aortic valve. No aortic valve stenosis or regurgitation. TRICUSPID VALVE Structurally normal tricuspid valve. No tricuspid valve stenosis or regurgitation. PULMONARY VALVE No pulmonary valve regurgitation or stenosis. VESSELS The inferior vena cava was not well visualized. PERICARDIUM There is no pericardial effusion. Ming Mazariegos MD, FACC, [facility] – [place] (Electronically Signed) Final Date:06 August 2017 13:07
[2017-08-06] MEDS: ARTIFICIAL TEARS OPTH SOLN 15 ML BTL LEFT EYE SCH ×2 (14:51→20:28)
--- NOTE | 2017-08-06 15:44 | HHI.IDPN ---
Subjective Subjective Remarks Ms. Jason Renee is a 57-year-old female with past medical history significant for morbid obesity, sleep apnea, COPD who has been admitted multiple times to the hospital for presented to the ER over the last several years. Patients records indicate history of multiple intubations in past for COPD exacerbations. Patient also has a history of MRSA in the sputum as well as ESBL Escherichia coli in the urine in the past. Patient is a [facility] of [facility] and [facility]. EMT was called for respiratory distress, patient was obtunded with CO2 140 and was intubated by paramedics. Patient needed intubation but was extubated next day. Patient is now on BiPAP and still needs high oxygen. Infectious disease is consulted for evaluation and management of pneumonia and UTI ESBL positive. At the time of my evaluation patient is in the ICU currently sitting in chair. Able to talk when mask taken off. No on pressors. UO ok. Not much stool in ostomy bag. Reports bloating of abdomen. Overnight events reviewed No fevers No rash No diarrhea Sitting up in bed, conversing normal. Antibiotics Current Medications Medications (Trade) Dose Ordered Sig/Elliot Route Start Time Stop Time Status Last Admin (Elavil) 75 mg HS PO 08/01/17 21:00 08/05/17 20:04 (Aspirin Chew) 81 mg DAILY CHEW 08/01/17 09:00 08/06/17 08:49 (Symbicort 80-4.5 Mcg Inh) 2 puff Q12HR INH 08/01/17 09:00 08/06/17 08:48 (Buspar) 10 mg DAILY PO 08/01/17 09:00 08/06/17 08:48 (Vitamin B12) 500 mcg DAILY PO 08/01/17 09:00 08/06/17 08:48 (Neurontin) 1,200 mg TID PO 08/01/17 09:00 08/06/17 13:21 (Ativan) 0.5 mg Q12HR PRN PO 08/01/17 05:30 08/06/17 05:08 (Lyrica) 100 mg TID PO 08/01/17 09:00 08/06/17 13:21 (SEROquel) 100 mg DAILY PO 08/01/17 09:00 08/06/17 08:48 (SEROquel) 200 mg HS PO 08/01/17 21:00 08/05/17 20:04 Patient Own Medication PT OWN MED: BID PO 08/01/17 09:00 Future Hold (Elavil) 25 mg AC BREAKFAST PO 08/01/17 07:00 08/06/17 06:26 (NS Flush) 2 ml UNSCH PRN IV FLUSH 08/01/17 05:30 (NS Flush) 2 ml BID IV FLUSH 08/01/17 09:00 08/06/17 08:50 (Tylenol) 650 mg Q6H PRN PO 08/01/17 05:30 (Zofran Inj) 4 mg Q6H PRN IV PUSH 08/01/17 05:30 (Duoneb Neb) 1 ampule Q2HR NEB PRN INH 08/01/17 05:30 08/05/17 20:32 (Heparin Inj) 5,000 units Q8HR SQ 08/01/17 06:00 08/06/17 13:21 ([facility] Nursing Information) 1 Q361D XX 08/01/17 05:30 (Chlorhexidine 2% Cloth) 3 pack Taper DAILY@04 TOP 08/02/17 04:00 07/29/18 03:59 08/06/17 04:00 (Chlorhexidine 2% Cloth) 3 pack UNSCH PRN TOP 08/01/17 05:30 (Bertha-Colace) 1 tab BID PO 08/01/17 09:00 08/06/17 08:48 (Milk Of Magnesia Liq) 30 ml Q12H PRN PO 08/01/17 05:30 (Senokot) 17.2 mg Q12H PRN PO 08/01/17 05:30 (Dulcolax Supp) 10 mg DAILY PRN RECTAL 08/01/17 05:30 (Lactulose Liq) 30 ml DAILY PRN PO 08/01/17 05:30 (Peridex 0.12% Liq) 15 ml BID@08,20 MT 08/01/17 08:00 08/03/17 10:01 (Casanova 5-325 Mg) 1 tab Q4H PRN PO 08/02/17 16:45 08/05/17 21:18 (Pepcid) 20 mg BID PO 08/04/17 21:00 08/06/17 08:48 Meropenem 1000 mg/ Sodium Chloride 100 ml @ 200 mls/hr Q8H IV 08/04/17 17:00 08/06/17 08:49 (SoluMEDROL INJ) 40 mg Q8HR IV PUSH 08/06/17 14:00 08/06/17 13:21 (Tears Naturale Opth Soln) 1 drop Q8H LEFT EYE 08/06/17 14:00 08/06/17 14:51 Lines Line sites with no e.o infection Past Medical History Past Medical History Anemia Type 2 diabetes with diabetic neuropathy Nausea vomiting possibly gastroparesis Edema signs 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 Reported history of gastric bypass this remains to be confirmed. Allergies: Coded Allergies: penicillin G (Unverified Allergy, Unknown, 05/21/17) Objective . Vital Signs Date Time Temp Pulse Resp B/P (MAP) Pulse Ox O2 Delivery O2 Flow Rate FiO2 08/06/17 14:00 93 08/06/17 12:00 91 28 96 08/06/17 12:00 91 08/06/17 11:01 92 08/06/17 11:01 92 26 174/76 (108) 98 08/06/17 10:30 96 High Flow Nasal Cannula 30.00 45 08/06/17 10:01 106 25 127/60 (82) 97 08/06/17 10:01 106 08/06/17 10:00 105 26 97 08/06/17 10:00 105 08/06/17 09:00 94 08/06/17 09:00 94 33 153/79 (103) 97 08/06/17 08:01 93 25 135/70 (91) 98 08/06/17 08:01 93 08/06/17 08:00 92 08/06/17 08:00 97.6 08/06/17 08:00 92 39 99 08/06/17 07:20 97 High Flow Nasal Cannula 40.00 45 08/06/17 07:00 Door And Arrival Attendant 08/06/17 06:00 92 08/06/17 04:00 98.7 90 26 178/83 (114) 93 08/06/17 04:00 90 08/06/17 03:24 98 High Flow Nasal Cannula 40.00 50 08/06/17 02:00 83 08/06/17 00:39 93 70 08/06/17 00:00 98.3 86 26 117/56 (76) 93 08/06/17 00:00 86 08/05/17 22:00 98 08/05/17 20:32 94 High Flow Nasal Cannula 40.00 50 08/05/17 20:00 98.4 101 28 169/69 (102) 95 08/05/17 20:00 101 08/05/17 19:00 95 40.00 50 08/05/17 18:00 105 08/05/17 16:00 106 33 93 08/05/17 16:00 106 08/06/17 08/06/17 08/07/17 14:59 22:59 06:59 Intake Total 100 ml Balance 100 ml IV Total 100 ml . Laboratory Tests Test 08/05/17 04:51 08/06/17 03:51 White Blood Count 6.6 TH/MM3 6.6 TH/MM3 Red Blood Count 4.47 MIL/MM3 4.32 MIL/MM3 Hemoglobin 12.0 GM/DL 11.7 GM/DL Hematocrit 38.9 % 37.5 % Mean Corpuscular Volume 86.9 FL 86.6 FL Mean Corpuscular Hemoglobin 26.8 PG 27.0 PG Mean Corpuscular Hemoglobin Concent 30.9 % 31.2 % Red Cell Distribution Width 17.8 % 17.1 % Platelet Count 155 TH/MM3 172 TH/MM3 Mean Platelet Volume 10.0 FL 9.8 FL Laboratory Tests Test 08/04/17 21:10 08/05/17 04:51 08/05/17 05:38 08/05/17 13:22 Blood Urea Nitrogen 11 MG/DL 12 MG/DL 15 MG/DL Creatinine 0.59 MG/DL 0.54 MG/DL 0.59 MG/DL Random Glucose 158 MG/DL 120 MG/DL 129 MG/DL Calcium Level 9.5 MG/DL 8.9 MG/DL 9.8 MG/DL Sodium Level 142 MEQ/L 144 MEQ/L 143 MEQ/L Potassium Level 4.0 MEQ/L 5.3 MEQ/L 3.8 MEQ/L Chloride Level 101 MEQ/L 104 MEQ/L 99 MEQ/L Carbon Dioxide Level 34.4 MEQ/L 32.8 MEQ/L 35.8 MEQ/L Anion Gap 7 MEQ/L 7 MEQ/L 8 MEQ/L Estimat Glomerular Filtration Rate 105 ML/MIN 116 ML/MIN 105 ML/MIN Lactic Acid Level 1.2 mmol/L Phosphorus Level 1.6 MG/DL Magnesium Level 2.3 MG/DL Test 08/06/17 03:51 Blood Urea Nitrogen 21 MG/DL Creatinine 0.56 MG/DL Random Glucose 129 MG/DL Calcium Level 9.3 MG/DL Phosphorus Level 3.2 MG/DL Sodium Level 143 MEQ/L Potassium Level 3.3 MEQ/L Chloride Level 100 MEQ/L Carbon Dioxide Level 33.6 MEQ/L Anion Gap 9 MEQ/L Estimat Glomerular Filtration Rate 111 ML/MIN Imaging Last Impressions Chest X-Ray 08/06/17 0600 Signed Impressions: CONCLUSION: Indistinct left hemidiaphragm likely atelectasis. Lungs are otherwise clear. Abdomen X-Ray 08/05/17 0000 Signed Impressions: CONCLUSION: Benign-appearing bowel gas pattern. There is atelectasis or consolidation in the left lower lobe. Physical Exam GENERAL: Morbidly obese patient, in no apparent distress. SKIN: No rashes, ecchymoses or lesions. Cool and dry. HEAD: Atraumatic. Normocephalic. No temporal or scalp tenderness. EYES: Pupils equal round and reactive. Extraocular motions intact. No scleral icterus. No injection or drainage. ENT: Nose without bleeding, purulent drainage or septal hematoma. Throat without erythema, tonsillar hypertrophy or exudate. Uvula midline. Airway patent. NECK: Trachea midline. Supple, nontender, no meningeal signs. Large neck. CARDIOVASCULAR: HS audible. RESPIRATORY: Clear to auscultation. Breath sounds equal bilaterally but decreased in the bases. MUSCULOSKELETAL: Extremities without clubbing, cyanosis, or edema. NEUROLOGICAL: Awake and alert. Non focal exam Psych cooperative IV line sites with no e.o infection. Assessment & Plan Remarks ESBL E.coli UTI H/o MRSA pneumonia and ESBL E coli UTI. Sleep apnea Morbid obesity Acute COPD exacerbation Recs Continue Meropenem IV for now. Will deescalate to oral levaquin for 3 more days in am. CXR minimal atelectasis. No expectoration. Repeat UA straight cath did not reflex to culture. Follow cultures Follow clinically. Ani Castañeda RN, MD Aug 06, 2017 15:44
[2017-08-06] MEDS: RESP: ALBUTEROL 2.5 MG/IPRATROPIUM 0.5 MG NEB (PRN) INH (20:10)
[2017-08-06] MEDS: AMITRIPTYLINE HCL 75 MG TAB PO SCH (20:27)
[2017-08-06] MEDS: QUEtiapine FUMARATE 200 MG TAB PO SCH (20:28)
[2017-08-06] MEDS: ACETAMINOPHEN/HYDROcodone 325 MG/5 MG TAB PO PRN (20:29)
[2017-08-07] VITALS (21 sets, daily range): BP systolic 98–144; BP diastolic 47–93; PULSE 66–101; RESP 16–29; TEMP 97.7–98.8; O2SAT 90–99
[2017-08-07] MEDS: CHLORHEXIDINE GLUCONATE 2 % 1 PACK (2 CLOTHS) TOP SCH (00:08)
--- NOTE | 2017-08-07 00:29 | MB ---
cc: Cesar Woodard MD DATE: 08/06/2017 REASON FOR CONSULTATION: Respiratory failure and sleep apnea. HISTORY OF PRESENT ILLNESS: This is an extremely obese 57-year-old [place], who was brought in with severe respiratory distress and was severely hypercapnic, requiring intubation and mechanical ventilation. The patient was hypoxic and pCO2 was over 140, and in spite of being on O2 via nasal cannula, the patient was obtunded and thus did not respond to BiPAP therapy at 20/10 and 70% FiO2. ABGs continued to worsen and she thus had to be intubated. The patient initially was intubated by paramedics and subsequently was weaned off the respirator and had been placed on BiPAP. She did have a history for UTI and possible pneumonia and a chest x-ray had demonstrated basilar infiltrates. Over the past 3 days, the patient has been placed on BiPAP overnight and she was switched to O2 via high flow nasal cannula at 40-50% FiO2 and seems to be tolerating it well now. She has been diuresed for fluid overload and her leg swelling had improved considerably. The patient is presently alert, conversing and denies any chest pains or abdominal pains, but has some cramping in the legs. PAST MEDICAL HISTORY: Has included a history of COPD, history of sleep apnea. [place]. She had a herniated disk in the past and she has gastroesophageal reflux and diverticulitis. She has depression, anxiety and previously had gastric bypass and a colostomy as well. HABITS: The patient does not smoke. No significant alcohol use. MEDICATIONS: List included omeprazole 20 mg daily, Cardizem 60 mg daily, Zithromax 500 mg daily, amitriptyline 25 mg before meals, Neurontin 300 mg t.i.d., Lyrica 75 mg t.i.d., quetiapine 100 mg daily, amitriptyline 75 mg at bedtime, Cardizem 60 mg b.i.d. FAMILY HISTORY: Noncontributory. REVIEW OF SYSTEMS: The patient has had some leg swelling. Denies headaches, blackouts. She has had some leg swelling. No calf muscle pains. She has joint pains of her extremities and she has had sudden dizzy attacks when lying on her side. No skin lesion. The other system review is in presenting complaint. PHYSICAL EXAMINATION: GENERAL: This is a very obese, middle-aged white female who is awake, pale and mildly dyspneic. VITAL SIGNS: Blood pressure is 135/70, pulse is 100, respirations 22, temperature 97.2. HEENT: Head is normocephalic. Pupils are reactive and equal. Tongue is moist. Throat is injected. Nasal mucosa is edematous. NECK: Supple, no bruits or thyroid enlargement, no lymphadenopathy. CHEST: Equal movements with decreased excursions and wheezes were scattered bilaterally with prolonged expirations and occasional basal crackles. HEART: Sounds are irregular, S1 and S2. No murmur. No S3. ABDOMEN: Soft, protuberant, no mass. No organomegaly, tenderness. Bowel sounds are active. EXTREMITIES: 2+ edema with diminished peripheral pulses. Reflexes are 1+, with no gross motor deficits. Cranial nerves grossly intact. SKIN: No lesions observed. IMPRESSION: 1. Hypercapnic respiratory failure, resolving. 2. Obstructive sleep apnea. 3. Chronic obstructive pulmonary disease and reactive airways. 4. Hypertension. 5. Urinary tract infection. 6. Extreme obesity. PLAN: The patient will be maintained on O2 high flow at 40% and weaned down to nasal cannula at 4 liters. We will taper the steroids down to Solu-Medrol 40 mg b.i.d., nebulized DuoNeb continued every 4 hours and she will be placed on Symbicort 160/4.5 mcg 2 puffs b.i.d. BiPAP to be used at night from 8:00 p.m. to 8:00 a.m. at 15/5 cm, FIO2 at 30%. Continue with antibiotic coverage as ordered and a sputum sent for Gram stain and culture. PFTs to be done when she is clinically stable and if she is off the high flow O2, we could transfer her to the telemetry unit. Thank you for this consultation. MD VENU Meier/POWER , 11:29 PM , 12:26 AM PURNIMA
[2017-08-07] MEDS: ACETAMINOPHEN/HYDROcodone 325 MG/5 MG TAB PO PRN ×3 (03:33→17:56)
[2017-08-07] MEDS: methylPREDNISolone SOD SUCC 40 MG/1 ML VIAL IV PUSH SCH ×2 (05:04→21:00)
[2017-08-07] MEDS: ARTIFICIAL TEARS OPTH SOLN 15 ML BTL LEFT EYE SCH ×3 (05:05→21:01)
[2017-08-07] MEDS: HEPARIN SODIUM - SQ 10,000 UNITS/ML VIAL SQ SCH ×3 (05:05→21:01)
--- NOTE | 2017-08-07 05:39 | RADRPT ---
EXAM DATE: 08/07/2017 5:30 AM EDT AGE/SEX: 57 years / Female INDICATIONS: Edema. Follow up respiratory status. CLINICAL DATA: This is the patient's subsequent encounter. Patient reports that signs and symptoms h ave been present for 4 - 6 days and indicates a pain score of Nonresponsive. MEDICAL/SURGICAL HISTORY: None. None. COMPARISON: [facility] – [place], CHEST SINGLE AP, 08/06/2017. . FINDINGS: A single AP view of the chest demonstrates the lungs to be symmetrically aerated without evidence of mass, infiltrate or effusion. The heart size remains mildly prominent with no perihilar edema.. Oss eous structures are intact. The patient's head is flexed obscuring the lung apices. Multiple overlyi ng electrocardiogram leads are present. CONCLUSION: No significant change. Electronically signed by: Mike Norman MD 08/07/2017 5:38 AM EDT
[2017-08-07] MEDS: AMITRIPTYLINE HCL 25 MG TAB PO SCH (05:41)
[2017-08-07] MEDS: CHLORHEXIDINE 0.12% (ORAL KIT) 15 ML CUP MT SCH ×2 (08:00→19:29)
[2017-08-07] MEDS: RESP: ALBUTEROL 2.5 MG/IPRATROPIUM 0.5 MG NEB (PRN) INH ×4 (08:10→20:02)
[2017-08-07] MEDS: busPIRone HCL 10 MG TAB PO SCH (08:54)
[2017-08-07] MEDS: ASPIRIN 81 MG CHEW TAB CHEW SCH (08:54)
[2017-08-07] MEDS: PREGABALIN 100 MG CAP PO SCH ×3 (08:54→17:57)
[2017-08-07] MEDS: FAMOTIDINE 20 MG TAB PO SCH ×2 (08:54→21:01)
[2017-08-07] MEDS: DOCUSATE SODIUM 50 MG/SENNA 8.6 MG TAB PO SCH ×2 (08:54→21:00)
[2017-08-07] MEDS: SODIUM CHLORIDE 0.9% FLUSH 10 ML FLUSH IV FLUSH SCH ×2 (08:55→20:59)
[2017-08-07] MEDS: CYANOCOBALAMIN 1,000 MCG TAB PO SCH (08:55)
[2017-08-07] MEDS: MEROPENEM INJ 1,000 MG in SODIUM CHLORIDE 0.9% INJ 100 ML IV SCH (08:55)
[2017-08-07] MEDS: QUEtiapine FUMARATE 100 MG TAB PO SCH (08:55)
[2017-08-07] MEDS: GABAPENTIN 300 MG CAP PO SCH ×3 (08:55→17:57)
[2017-08-07] MEDS: BUDESONIDE-FORMOTEROL 80/4.5 MCG INHALER INH SCH ×2 (08:56→20:59)
--- NOTE | 2017-08-07 10:08 | HHI.IDPN ---
Subjective Subjective Remarks Ms. Jason Renee is a 57-year-old female with past medical history significant for morbid obesity, sleep apnea, COPD who has been admitted multiple times to the hospital for presented to the ER over the last several years. Patients records indicate history of multiple intubations in past for COPD exacerbations. Patient also has a history of MRSA in the sputum as well as ESBL Escherichia coli in the urine in the past. Patient is a resident of [facility]. EMT was called for respiratory distress, patient was obtunded with CO2 140 and was intubated by paramedics. Patient needed intubation but was extubated next day. Patient is now on BiPAP and still needs high oxygen. Infectious disease is consulted for evaluation and management of pneumonia and UTI ESBL positive. At the time of my evaluation patient is in the ICU currently sitting in chair. Able to talk when mask taken off. No on pressors. UO ok. Not much stool in ostomy bag. Reports bloating of abdomen. Overnight events reviewed No fevers No rash No diarrhea Sitting up in bed, conversing normal. No shortness of breath/ Antibiotics Current Medications Medications (Trade) Dose Ordered Sig/Elliot Route Start Time Stop Time Status Last Admin (Elavil) 75 mg HS PO 08/01/17 21:00 08/06/17 20:27 (Aspirin Chew) 81 mg DAILY CHEW 08/01/17 09:00 08/07/17 08:54 (Symbicort 80-4.5 Mcg Inh) 2 puff Q12HR INH 08/01/17 09:00 08/07/17 08:56 (Buspar) 10 mg DAILY PO 08/01/17 09:00 08/07/17 08:54 (Vitamin B12) 500 mcg DAILY PO 08/01/17 09:00 08/07/17 08:55 (Neurontin) 1,200 mg TID PO 08/01/17 09:00 08/07/17 08:55 (Ativan) 0.5 mg Q12HR PRN PO 08/01/17 05:30 08/06/17 05:08 (Lyrica) 100 mg TID PO 08/01/17 09:00 08/07/17 08:54 (SEROquel) 100 mg DAILY PO 08/01/17 09:00 08/07/17 08:55 (SEROquel) 200 mg HS PO 08/01/17 21:00 08/06/17 20:28 Patient Own Medication PT OWN MED: BID PO 08/01/17 09:00 Future Hold (Elavil) 25 mg AC BREAKFAST PO 08/01/17 07:00 08/07/17 05:41 (NS Flush) 2 ml UNSCH PRN IV FLUSH 08/01/17 05:30 (NS Flush) 2 ml BID IV FLUSH 08/01/17 09:00 08/07/17 08:55 (Tylenol) 650 mg Q6H PRN PO 08/01/17 05:30 (Zofran Inj) 4 mg Q6H PRN IV PUSH 08/01/17 05:30 (Duoneb Neb) 1 ampule Q2HR NEB PRN INH 08/01/17 05:30 08/07/17 08:12 (Heparin Inj) 5,000 units Q8HR SQ 08/01/17 06:00 08/07/17 05:05 ([facility]) 1 Q361D XX 08/01/17 05:30 (Chlorhexidine 2% Cloth) Taper DAILY@04 TOP 08/02/17 04:00 07/29/18 03:59 08/07/17 00:08 (Chlorhexidine 2% Cloth) 3 pack UNSCH PRN TOP 08/01/17 05:30 (Bertha-Colace) 1 tab BID PO 08/01/17 09:00 08/07/17 08:54 (Milk Of Magnesia Liq) 30 ml Q12H PRN PO 08/01/17 05:30 (Senokot) 17.2 mg Q12H PRN PO 08/01/17 05:30 (Dulcolax Supp) 10 mg DAILY PRN RECTAL 08/01/17 05:30 (Lactulose Liq) 30 ml DAILY PRN PO 08/01/17 05:30 (Peridex 0.12% Liq) 15 ml BID@08,20 MT 08/01/17 08:00 08/03/17 10:01 ([place] 5-325 Mg) 1 tab Q4H PRN PO 08/02/17 16:45 08/07/17 03:33 (Pepcid) 20 mg BID PO 08/04/17 21:00 08/07/17 08:54 Meropenem 1000 mg/ Sodium Chloride 100 ml @ 200 mls/hr Q8H IV 08/04/17 17:00 08/07/17 08:55 (SoluMEDROL INJ) 40 mg Q8HR IV PUSH 08/06/17 14:00 08/07/17 05:04 (Tears Naturale Opth Soln) 1 drop Q8H LEFT EYE 08/06/17 14:00 08/07/17 05:05 Lines Line sites with no e.o infection Past Medical History Past Medical History Anemia Type 2 diabetes with diabetic neuropathy Nausea vomiting possibly gastroparesis Edema signs 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 Reported history of gastric bypass this remains to be confirmed. Allergies: Coded Allergies: penicillin G (Unverified Allergy, Unknown, 05/21/17) Objective . Vital Signs Date Time Temp Pulse Resp B/P (MAP) Pulse Ox O2 Delivery O2 Flow Rate FiO2 08/07/17 08:12 95 Nasal Cannula 6.00 08/07/17 06:00 80 08/07/17 05:07 99 High Flow Nasal Cannula 30.00 45 08/07/17 04:00 70 08/07/17 04:00 97.7 72 23 98/47 (64) 91 08/07/17 02:00 66 08/07/17 00:56 91 80 08/07/17 00:19 94 70 08/07/17 00:00 97.8 85 24 120/54 (76) 94 08/07/17 00:00 90 08/06/17 22:00 86 08/06/17 20:10 96 High Flow Nasal Cannula 30.00 45 08/06/17 20:00 93 08/06/17 20:00 98.1 93 20 156/69 (98) 95 08/06/17 19:00 95 40.00 50 08/06/17 16:00 89 36 98 08/06/17 16:00 89 08/06/17 14:00 93 08/06/17 12:00 91 28 96 08/06/17 12:00 91 08/06/17 11:01 92 08/06/17 11:01 92 26 174/76 (108) 98 08/06/17 10:30 96 High Flow Nasal Cannula 30.00 45 . Laboratory Tests Test 08/06/17 03:51 White Blood Count 6.6 TH/MM3 Red Blood Count 4.32 MIL/MM3 Hemoglobin 11.7 GM/DL Hematocrit 37.5 % Mean Corpuscular Volume 86.6 FL Mean Corpuscular Hemoglobin 27.0 PG Mean Corpuscular Hemoglobin Concent 31.2 % Red Cell Distribution Width 17.1 % Platelet Count 172 TH/MM3 Mean Platelet Volume 9.8 FL Laboratory Tests Test 08/05/17 13:22 08/06/17 03:51 08/07/17 08:59 Blood Urea Nitrogen 15 MG/DL 21 MG/DL Creatinine 0.59 MG/DL 0.56 MG/DL Random Glucose 129 MG/DL 129 MG/DL Calcium Level 9.8 MG/DL 9.3 MG/DL Phosphorus Level 1.6 MG/DL 3.2 MG/DL Magnesium Level 2.3 MG/DL Sodium Level 143 MEQ/L 143 MEQ/L Potassium Level 3.8 MEQ/L 3.3 MEQ/L Chloride Level 99 MEQ/L 100 MEQ/L Carbon Dioxide Level 35.8 MEQ/L 33.6 MEQ/L Anion Gap 8 MEQ/L 9 MEQ/L Estimat Glomerular Filtration Rate 105 ML/MIN 111 ML/MIN Imaging Last Impressions Chest X-Ray 08/06/17 0600 Signed Impressions: CONCLUSION: Indistinct left hemidiaphragm likely atelectasis. Lungs are otherwise clear. Abdomen X-Ray 08/05/17 0000 Signed Impressions: CONCLUSION: Benign-appearing bowel gas pattern. There is atelectasis or consolidation in the left lower lobe. Physical Exam GENERAL: Morbidly obese patient, in no apparent distress. SKIN: No rashes, ecchymoses or lesions. Cool and dry. HEAD: Atraumatic. Normocephalic. No temporal or scalp tenderness. EYES: Pupils equal round and reactive. Extraocular motions intact. No scleral icterus. No injection or drainage. ENT: Nose without bleeding, purulent drainage or septal hematoma. Throat without erythema, tonsillar hypertrophy or exudate. Uvula midline. Airway patent. NECK: Trachea midline. Supple, nontender, no meningeal signs. Large neck. CARDIOVASCULAR: HS audible. RESPIRATORY: Clear to auscultation. Breath sounds equal bilaterally but decreased in the bases. MUSCULOSKELETAL: Extremities without clubbing, cyanosis, or edema. NEUROLOGICAL: Awake and alert. Non focal exam Psych cooperative IV line sites with no e.o infection. Assessment & Plan Remarks ESBL E.coli UTI H/o MRSA pneumonia and ESBL E coli UTI. Sleep apnea Morbid obesity Acute COPD exacerbation Recs DC Meropenem IV. Start Levaquin for 3 more days (stop date: 08/10/2017) CXR minimal atelectasis. No expectoration. Repeat UA straight cath did not reflex to culture. Follow cultures Follow clinically. dw RN Will sign off please call back if any change in clinical condition or questions. Ani Sanchez MD Aug 07, 2017 10:08
--- NOTE | 2017-08-07 11:03 | HHI.PR ---
Subjective Remarks Follow-up UTI, respiratory failure. The patient still feels short of breath. Otherwise no complaints at this time. No events reported by nursing. Patient is still on high flow oxygen. Objective Vitals Vital Signs Date Time Temp Pulse Resp B/P (MAP) Pulse Ox O2 Delivery O2 Flow Rate FiO2 08/07/17 08:12 95 Nasal Cannula 6.00 08/07/17 06:00 80 08/07/17 05:07 99 High Flow Nasal Cannula 30.00 45 08/07/17 04:00 70 08/07/17 04:00 97.7 72 23 98/47 (64) 91 08/07/17 02:00 66 08/07/17 00:56 91 80 08/07/17 00:19 94 70 08/07/17 00:00 97.8 85 24 120/54 (76) 94 08/07/17 00:00 90 08/06/17 22:00 86 08/06/17 20:10 96 High Flow Nasal Cannula 30.00 45 08/06/17 20:00 93 08/06/17 20:00 98.1 93 20 156/69 (98) 95 08/06/17 19:00 95 40.00 50 08/06/17 16:00 89 36 98 08/06/17 16:00 89 08/06/17 14:00 93 08/06/17 12:00 91 28 96 08/06/17 12:00 91 08/06/17 11:01 92 08/06/17 11:01 92 26 174/76 (108) 98 I/O 08/06/17 08/06/17 08/06/17 08/07/17 08/07/17 08/07/17 07:00 15:00 23:00 07:00 15:00 23:00 Intake Total 555 ml 100 ml 1080 ml 820 ml Output Total 1650 ml 1700 ml 860 ml Balance -1095 ml 100 ml -620 ml -40 ml Intake Oral 300 ml 980 ml 720 ml IV Total 255 ml 100 ml 100 ml 100 ml Output Urine Total 1600 ml 1700 ml 850 ml Stool Total 50 ml 10 ml # Bowel Movements 1 Result Diagram: 08/06/17 0351 08/06/17 0351 Imaging Last Impressions Chest X-Ray 08/07/17 06 Signed Impressions: CONCLUSION: No significant change. Abdomen X-Ray 08/05/17 0000 Signed Impressions: CONCLUSION: Benign-appearing bowel gas pattern. There is atelectasis or consolidation in the left lower lobe. Objective Remarks General: Morbidly obese female in no acute distress. Heart: Regular rate and rhythm. No murmur. Lungs: Decreased breath sounds in both bases. Diffuse wheezing noted. Breathing is nonlabored. Abdomen: Soft, nontender, nondistended. Extremities: No lower extremity edema. Psych: Alert and oriented. Neuro: Normal speech. No focal deficits noted. Procedures None Urinary Catheter: Yes Assessment to: Continue Ocampo insert reason: Obstruction/Retention Vascular Central Line Catheter: No A/P Assessment and Plan 1. Acute hypoxic and hypercapnic respiratory failure: Improving slowly. Still requiring high flow oxygen. Appreciate pulmonology recommendations. BiPAP at night. 2. ESBL E. coli UTI: Appreciate infectious disease recommendations. Switched from meropenem to oral Levaquin today. 3. COPD exacerbation: Improved. Continue bronchodilators. Taper steroids. 4. Possible congestive heart failure: Continue diuresis. Echocardiogram shows ejection fraction 55-60%. 5. Anxiety/depression: Continue Elavil, BuSpar, Seroquel. 6. Likely obstructive sleep apnea: Continue BiPAP at night. 7. GI prophylaxis: Famotidine. 8. DVT prophylaxis: Heparin. Real Plunkett MD Aug 07, 2017 11:03
[2017-08-07 11:06] LABS: HEMATOCRIT 37.3 % (35.0-46.0); HEMOGLOBIN 11.6 GM/DL (11.6-15.3); MEAN CELL VOLUME 86.5 FL (80.0-100.0); MEAN CORPUSCULAR HEMOGLOBIN 26.9 PG (27.0-34.0); MEAN CORPUSCULAR HGB CONC 31.1 % (32.0-36.0); MEAN PLATELET VOLUME 9.7 FL (7.0-11.0); PLATELET COUNT 186 TH/MM3 (150-450); RED BLOOD COUNT 4.32 MIL/MM3 (4.00-5.30); RED CELL DISTRIBUTION WIDTH 16.3 % (11.6-17.2); WHITE BLOOD COUNT 6.3 TH/MM3 (4.0-11.0)
[2017-08-07 11:21] LABS: CALCIUM 9.1 MG/DL (8.5-10.1); CREATININE 0.54 MG/DL (0.50-1.00)
--- NOTE | 2017-08-07 12:29 | HHI.PR ---
Subjective Remarks She is alert and on High flow O2 at 40 %. Has some cough and leg edema. On antibiotics for MRSA, pneumonia and UTI Objective Vital Signs Date Time Temp Pulse Resp B/P (MAP) Pulse Ox O2 Delivery O2 Flow Rate FiO2 08/07/17 12:09 96 Nasal Cannula 6.00 08/07/17 10:00 101 08/07/17 08:12 95 Nasal Cannula 6.00 08/07/17 08:00 81 08/07/17 06:00 80 08/07/17 05:07 99 High Flow Nasal Cannula 30.00 45 08/07/17 04:00 70 08/07/17 04:00 97.7 72 23 98/47 (64) 91 08/07/17 02:00 66 08/07/17 00:56 91 80 08/07/17 00:19 94 70 08/07/17 00:00 97.8 85 24 120/54 (76) 94 08/07/17 00:00 90 08/06/17 22:00 86 08/06/17 20:10 96 High Flow Nasal Cannula 30.00 45 08/06/17 20:00 93 08/06/17 20:00 98.1 93 20 156/69 (98) 95 08/06/17 19:00 95 40.00 50 08/06/17 16:00 89 36 98 08/06/17 16:00 89 08/06/17 14:00 93 I/O 08/06/17 08/06/17 08/06/17 08/07/17 08/07/17 08/07/17 07:00 15:00 23:00 07:00 15:00 23:00 Intake Total 555 ml 100 ml 1080 ml 820 ml Output Total 1650 ml 1700 ml 860 ml Balance -1095 ml 100 ml -620 ml -40 ml Intake Oral 300 ml 980 ml 720 ml IV Total 255 ml 100 ml 100 ml 100 ml Output Urine Total 1600 ml 1700 ml 850 ml Stool Total 50 ml 10 ml # Bowel Movements 1 Result Diagram: 08/07/17 1041 08/07/17 0859 Objective Remarks GENERAL: This is a very obese, middle-aged white female who is awake, pale and mildly dyspneic. HEENT: Head is normocephalic. Pupils are reactive and equal. Tongue is moist. Throat is clear. Nasal mucosa is edematous. NECK: Supple, no bruits or thyroid enlargement, no lymphadenopathy. CHEST: Equal movements with decreased excursions and wheezes were scattered bilaterally with prolonged expirations and occasional basal crackles. HEART: Sounds are irregular, S1 and S2. No murmur. No S3. ABDOMEN: Soft, protuberant, no mass. No organomegaly, tenderness. Bowel sounds are active. EXTREMITIES: Mild edema with diminished peripheral pulses. Reflexes are 1+, with no gross motor deficits. SKIN: No lesions observed. Assessment and Plan Assessment and Plan IMPRESSION: 1. Hypercapnic respiratory failure, resolving. 2. Obstructive sleep apnea. 3. Chronic obstructive pulmonary disease and reactive airways. 4. Hypertension. 5. Urinary tract infection. 6. Extreme obesity. Plan: 1. Continue antibiotics per ID 2. Wean O2 to N/C 5 L. 3. BiPAP at HS 15/5 CM Fio2 35 % 4. Nebs qid , Duoneb. 5. Solumedrol 40 mg IV q12 H 6. CBC,BMP in am 7. Cont Heparin 5000 U Q8H Cesar Woodard MD Aug 07, 2017 12:29
[2017-08-07] MEDS: QUEtiapine FUMARATE 200 MG TAB PO SCH (21:01)
[2017-08-07] MEDS: AMITRIPTYLINE HCL 75 MG TAB PO SCH (21:10)
[2017-08-08] VITALS (13 sets, daily range): BP systolic 118–164; BP diastolic 63–89; PULSE 66–99; RESP 20–28; TEMP 97.6–98.7; O2SAT 92–100
[2017-08-08] MEDS: CHLORHEXIDINE GLUCONATE 2 % 1 PACK (2 CLOTHS) TOP SCH (04:00)
[2017-08-08] MEDS: ACETAMINOPHEN/HYDROcodone 325 MG/5 MG TAB PO PRN ×3 (04:22→20:59)
[2017-08-08 04:52] LABS: HEMATOCRIT 37.6 % (35.0-46.0); HEMOGLOBIN 11.5 GM/DL (11.6-15.3); MEAN CELL VOLUME 87.3 FL (80.0-100.0); MEAN CORPUSCULAR HEMOGLOBIN 26.8 PG (27.0-34.0); MEAN CORPUSCULAR HGB CONC 30.7 % (32.0-36.0); MEAN PLATELET VOLUME 9.4 FL (7.0-11.0); PLATELET COUNT 175 TH/MM3 (150-450); RED BLOOD COUNT 4.31 MIL/MM3 (4.00-5.30); WHITE BLOOD COUNT 7.3 TH/MM3 (4.0-11.0)
[2017-08-08 05:21] LABS: BICARBONATE 33.4 MEQ/L (21.0-32.0); CALCIUM 8.7 MG/DL (8.5-10.1); CREATININE 0.62 MG/DL (0.50-1.00)
[2017-08-08] MEDS: ARTIFICIAL TEARS OPTH SOLN 15 ML BTL LEFT EYE SCH ×3 (05:25→22:00)
[2017-08-08] MEDS: HEPARIN SODIUM - SQ 10,000 UNITS/ML VIAL SQ SCH ×3 (05:25→20:58)
[2017-08-08] MEDS: AMITRIPTYLINE HCL 25 MG TAB PO SCH (06:19)
[2017-08-08] MEDS: CHLORHEXIDINE 0.12% (ORAL KIT) 15 ML CUP MT SCH ×2 (08:00→20:00)
[2017-08-08] MEDS: RESP: ALBUTEROL 2.5 MG/IPRATROPIUM 0.5 MG NEB (PRN) INH (08:26)
[2017-08-08] MEDS: SODIUM CHLORIDE 0.9% FLUSH 10 ML FLUSH IV FLUSH SCH ×2 (09:07→21:00)
[2017-08-08] MEDS: methylPREDNISolone SOD SUCC 40 MG/1 ML VIAL IV PUSH SCH ×2 (09:07→20:58)
[2017-08-08] MEDS: DOCUSATE SODIUM 50 MG/SENNA 8.6 MG TAB PO SCH ×2 (09:08→20:59)
[2017-08-08] MEDS: busPIRone HCL 10 MG TAB PO SCH (09:08)
[2017-08-08] MEDS: PREGABALIN 100 MG CAP PO SCH ×2 (09:08→13:37)
[2017-08-08] MEDS: FAMOTIDINE 20 MG TAB PO SCH ×2 (09:08→20:59)
[2017-08-08] MEDS: GABAPENTIN 300 MG CAP PO SCH ×3 (09:08→18:00)
[2017-08-08] MEDS: CYANOCOBALAMIN 1,000 MCG TAB PO SCH (09:08)
[2017-08-08] MEDS: ASPIRIN 81 MG CHEW TAB CHEW SCH (09:09)
[2017-08-08] MEDS: LEVOFLOXACIN 500 MG TAB PO SCH (09:09)
[2017-08-08] MEDS: QUEtiapine FUMARATE 100 MG TAB PO SCH (09:09)
--- NOTE | 2017-08-08 10:05 | HHI.PR ---
Subjective Remarks Follow-up respiratory failure, UTI. The patient is now off of high flow oxygen. Still requiring 4 L oxygen per nasal cannula. States that she uses 3 L of oxygen continuously at home. Denies chest pain. Dyspnea is improving. Objective Vitals Vital Signs Date Time Temp Pulse Resp B/P (MAP) Pulse Ox O2 Delivery O2 Flow Rate FiO2 08/08/17 08:28 97 Nasal Cannula 4.00 08/08/17 05:18 97 Nasal Cannula 4.00 08/08/17 04:01 99 55 08/08/17 04:00 100 Bi-Pap 55 08/08/17 04:00 98.0 80 23 164/89 (114) 100 08/08/17 03:00 72 21 144/70 (94) 96 08/08/17 02:00 66 21 126/69 (88) 96 08/08/17 01:15 96 Bi-Pap 70 08/08/17 01:00 67 20 130/68 (88) 97 08/08/17 00:00 97 Bi-Pap 75 08/08/17 00:00 97.6 72 24 118/66 (83) 96 08/07/17 23:20 95 75 08/07/17 23:00 79 22 111/60 (77) 90 08/07/17 22:00 93 23 103/59 (74) 91 08/07/17 21:01 82 27 132/62 (85) 93 08/07/17 20:02 95 Nasal Cannula 4.00 08/07/17 20:00 87 08/07/17 20:00 98.1 84 16 144/93 (110) 96 08/07/17 19:00 92 Nasal Cannula 4.00 08/07/17 18:58 28 08/07/17 18:58 28 08/07/17 18:00 89 08/07/17 16:00 83 08/07/17 16:00 98.1 83 29 144/66 (92) 97 08/07/17 14:00 89 08/07/17 12:09 96 Nasal Cannula 6.00 08/07/17 12:00 98.8 84 27 118/86 (97) 95 08/07/17 12:00 84 I/O 08/07/17 08/07/17 08/07/17 08/08/17 08/08/17 08/08/17 07:00 15:00 23:00 07:00 15:00 23:00 Intake Total 820 ml 1500 ml 720 ml Output Total 860 ml 2200 ml 1750 ml Balance -40 ml -700 ml -1030 ml Intake Oral 720 ml 1500 ml 720 ml IV Total 100 ml Output Urine Total 850 ml 2200 ml 1750 ml Stool Total 10 ml # Bowel Movements 1 1 Result Diagram: 08/08/17 0428 08/08/17 0428 Imaging Last Impressions Chest X-Ray 08/07/17 0600 Signed Impressions: CONCLUSION: No significant change. Abdomen X-Ray 08/05/17 0000 Signed Impressions: CONCLUSION: Benign-appearing bowel gas pattern. There is atelectasis or consolidation in the left lower lobe. Objective Remarks General: Morbidly obese female in no acute distress. Heart: Regular rate and rhythm. No murmur. Lungs: Decreased breath sounds in both bases. Scattered wheeze. Breathing is nonlabored. Abdomen: Soft, nontender, nondistended. Extremities: No lower extremity edema. Psych: Alert and oriented. Neuro: Normal speech. No focal deficits noted. Procedures None Urinary Catheter: Yes Assessment to: Continue Ocampo insert reason: Obstruction/Retention Vascular Central Line Catheter: No A/P Assessment and Plan 1. Acute hypoxic and hypercapnic respiratory failure: Improving slowly. No longer requiring high flow oxygen. Appreciate pulmonology recommendations. BiPAP at night. Continue supplemental oxygen. Patient is reportedly on 3 L of oxygen continuously at home. 2. ESBL E. coli UTI: Appreciate infectious disease recommendations. Switched from meropenem to oral Levaquin. 3. COPD exacerbation: Improved. Continue bronchodilators. Taper steroids. 4. Possible congestive heart failure: Continue diuresis. Echocardiogram shows ejection fraction 55-60%. 5. Anxiety/depression: Continue Elavil, BuSpar, Seroquel. 6. Likely obstructive sleep apnea: Continue BiPAP at night. 7. GI prophylaxis: Famotidine. 8. DVT prophylaxis: Heparin. 9. Recent MRSA pneumonia: Appreciate infectious disease and pulmonology recommendations. Discharge Planning Transfer to medical/surgical floor with telemetry. Real Plunkett MD Aug 08, 2017 10:05
[2017-08-08] MEDS: BUDESONIDE-FORMOTEROL 80/4.5 MCG INHALER INH SCH ×2 (13:42→21:01)
--- NOTE | 2017-08-08 17:24 | HHI.PR ---
Subjective Remarks ALERT NO DISTRESS Objective Vital Signs Date Time Temp Pulse Resp B/P (MAP) Pulse Ox O2 Delivery O2 Flow Rate FiO2 08/08/17 12:00 98 08/08/17 12:00 98.3 98 28 145/63 (90) 95 08/08/17 08:28 97 Nasal Cannula 4.00 08/08/17 08:00 81 08/08/17 08:00 98.4 81 26 134/69 (90) 95 08/08/17 07:00 Nasal Cannula 4.00 93 08/08/17 05:18 97 Nasal Cannula 4.00 08/08/17 04:01 99 55 08/08/17 04:00 100 Bi-Pap 55 08/08/17 04:00 98.0 80 23 164/89 (114) 100 08/08/17 03:00 72 21 144/70 (94) 96 08/08/17 02:00 66 21 126/69 (88) 96 08/08/17 01:15 96 Bi-Pap 70 08/08/17 01:00 67 20 130/68 (88) 97 08/08/17 00:00 97 Bi-Pap 75 08/08/17 00:00 97.6 72 24 118/66 (83) 96 08/07/17 23:20 95 75 08/07/17 23:00 79 22 111/60 (77) 90 08/07/17 22:00 93 23 103/59 (74) 91 08/07/17 21:01 82 27 132/62 (85) 93 08/07/17 20:02 95 Nasal Cannula 4.00 08/07/17 20:00 87 08/07/17 20:00 98.1 84 16 144/93 (110) 96 08/07/17 19:00 92 Nasal Cannula 4.00 08/07/17 18:58 28 08/07/17 18:58 28 08/07/17 18:00 89 I/O 08/07/17 08/07/17 08/07/17 08/08/17 08/08/17 08/08/17 07:00 15:00 23:00 07:00 15:00 23:00 Intake Total 820 ml 1500 ml 720 ml Output Total 860 ml 2200 ml 1750 ml Balance -40 ml -700 ml -1030 ml Intake Oral 720 ml 1500 ml 720 ml IV Total 100 ml Output Urine Total 850 ml 2200 ml 1750 ml Stool Total 10 ml # Bowel Movements 1 1 Result Diagram: 08/08/1742708/08/17427 Objective Remarks GENERAL: SKIN: Warm and dry. HEAD: Atraumatic. Normocephalic. EYES: Pupils equal and round. No scleral icterus. No injection or drainage. ENT: No nasal bleeding or discharge. Mucous membranes pink and moist. NECK: Trachea midline. No JVD. CARDIOVASCULAR: Regular rate and rhythm. RESPIRATORY: No accessory muscle use. Clear to auscultation. Breath sounds equal bilaterally. GASTROINTESTINAL: Abdomen soft, non-tender, nondistended. Hepatic and splenic margins not palpable.COLOSTOMY BAG IN PLACE MUSCULOSKELETAL: Extremities without clubbing, cyanosis, or edema. No obvious deformities. NEUROLOGICAL: Awake and alert. No obvious cranial nerve deficits. Motor grossly within normal limits. Five out of 5 muscle strength in the arms and legs. Normal speech. PSYCHIATRIC: Appropriate mood and affect; insight and judgment normal. Assessment and Plan Assessment and Plan IMPRESSION RESPIRATORY FAILURE COPD KAILYN/CSA MORBID OBESITY PLAN O2/BIPAP NEEDED BRONCHODILATOR THERAPY LOOSE WT INCREASE ACTIVITY Magy Bhatti MD Aug 08, 2017 17:23
[2017-08-08] MEDS: QUEtiapine FUMARATE 200 MG TAB PO SCH (20:58)
[2017-08-08] MEDS: LORazepam 0.5 MG TAB PO PRN (20:59)
[2017-08-08] MEDS: AMITRIPTYLINE HCL 75 MG TAB PO SCH (21:05)
[2017-08-09] VITALS (10 sets, daily range): BP systolic 125–168; BP diastolic 60–108; PULSE 80–102; RESP 21–38; TEMP 97.9–98.7; O2SAT 87–97
[2017-08-09] MEDS: CHLORHEXIDINE GLUCONATE 2 % 1 PACK (2 CLOTHS) TOP SCH (04:00)
[2017-08-09] MEDS: ARTIFICIAL TEARS OPTH SOLN 15 ML BTL LEFT EYE SCH ×3 (06:00→20:33)
[2017-08-09] MEDS: HEPARIN SODIUM - SQ 10,000 UNITS/ML VIAL SQ SCH ×3 (06:00→20:32)
[2017-08-09] MEDS: AMITRIPTYLINE HCL 25 MG TAB PO SCH (07:00)
[2017-08-09] MEDS: CHLORHEXIDINE 0.12% (ORAL KIT) 15 ML CUP MT SCH ×2 (08:00→20:00)
[2017-08-09] MEDS: QUEtiapine FUMARATE 100 MG TAB PO SCH (09:00)
[2017-08-09] MEDS: DOCUSATE SODIUM 50 MG/SENNA 8.6 MG TAB PO SCH ×2 (09:56→20:32)
[2017-08-09] MEDS: FAMOTIDINE 20 MG TAB PO SCH ×2 (09:56→20:32)
[2017-08-09] MEDS: LEVOFLOXACIN 500 MG TAB PO SCH (09:56)
[2017-08-09] MEDS: GABAPENTIN 300 MG CAP PO SCH ×3 (09:56→18:36)
[2017-08-09] MEDS: methylPREDNISolone SOD SUCC 40 MG/1 ML VIAL IV PUSH SCH ×2 (09:57→20:32)
[2017-08-09] MEDS: ASPIRIN 81 MG CHEW TAB CHEW SCH (09:57)
[2017-08-09] MEDS: ACETAMINOPHEN/HYDROcodone 325 MG/5 MG TAB PO PRN ×3 (09:57→20:34)
[2017-08-09] MEDS: PREGABALIN 100 MG CAP PO SCH ×3 (09:57→18:36)
[2017-08-09] MEDS: CYANOCOBALAMIN 1,000 MCG TAB PO SCH (09:57)
[2017-08-09] MEDS: SODIUM CHLORIDE 0.9% FLUSH 10 ML FLUSH IV FLUSH SCH ×2 (09:58→20:33)
[2017-08-09] MEDS: busPIRone HCL 10 MG TAB PO SCH (09:58)
[2017-08-09] MEDS: BUDESONIDE-FORMOTEROL 80/4.5 MCG INHALER INH SCH ×2 (09:58→20:33)
--- NOTE | 2017-08-09 09:58 | HHI.PR ---
Subjective Remarks Follow up respiratory failure, UTI. Patient reports cough and chest congestion. States that she is not able to cough anything up. She still is having blood clots from her nose. No other complaints at this time. Objective Vitals Vital Signs Date Time Temp Pulse Resp B/P (MAP) Pulse Ox O2 Delivery O2 Flow Rate FiO2 08/09/17 07:56 93 Nasal Cannula 4.00 08/09/17 04:00 81 26 144/72 (96) 87 08/09/17 04:00 90 08/09/17 02:40 97 55 08/09/17 00:00 80 08/09/17 00:00 98.0 80 24 125/60 (81) 96 08/08/17 20:00 83 08/08/17 20:00 Nasal Cannula 4.00 08/08/17 19:50 94 Nasal Cannula 2.00 08/08/17 16:00 98.7 99 27 157/75 (102) 92 08/08/17 16:00 93 08/08/17 12:00 98 08/08/17 12:00 98.3 98 28 145/63 (90) 95 I/O 08/08/17 08/08/17 08/08/17 08/09/17 08/09/17 08/09/17 07:00 15:00 23:00 07:00 15:00 23:00 Intake Total 720 ml 550 ml 720 ml Output Total 1750 ml 3000 ml 900 ml Balance -1030 ml -2450 ml -180 ml Intake Oral 720 ml 550 ml 720 ml Output Urine Total 1750 ml 3000 ml 900 ml # Bowel Movements 1 1 Result Diagram: 08/08/17 0428 08/08/17 0428 Imaging Last Impressions Chest X-Ray 08/07/17 0600 Signed Impressions: CONCLUSION: No significant change. Abdomen X-Ray 08/05/17 0000 Signed Impressions: CONCLUSION: Benign-appearing bowel gas pattern. There is atelectasis or consolidation in the left lower lobe. Objective Remarks General: Morbidly obese female in no acute distress. Heart: Regular rate and rhythm. No murmur. Lungs: Decreased breath sounds in both bases. Scattered wheeze. Breathing is nonlabored. Abdomen: Soft, nontender, nondistended. Extremities: No lower extremity edema. Psych: Alert and oriented. Neuro: Normal speech. No focal deficits noted. Procedures None Urinary Catheter: Yes Assessment to: Continue Ocampo insert reason: Obstruction/Retention Vascular Central Line Catheter: No A/P Assessment and Plan 1. Acute hypoxic and hypercapnic respiratory failure: Improving slowly. No longer requiring high flow oxygen. Now on 4 L per nasal cannula. Appreciate pulmonology recommendations. BiPAP at night. Continue supplemental oxygen. Patient is reportedly on 3 L of oxygen continuously at home. Add Mucinex. 2. ESBL E. coli UTI: Appreciate infectious disease recommendations. Switched from meropenem to oral Levaquin. 3. COPD exacerbation: Improved. Continue bronchodilators. Taper steroids. 4. Possible congestive heart failure: Continue diuresis. Echocardiogram shows ejection fraction 55-60%. 5. Anxiety/depression: Continue Elavil, BuSpar, Seroquel. 6. Likely obstructive sleep apnea: Continue BiPAP at night. 7. GI prophylaxis: Famotidine. 8. DVT prophylaxis: Heparin. 9. Recent MRSA pneumonia: Appreciate infectious disease and pulmonology recommendations. Discharge Planning Transfer to medical/surgical floor with telemetry when a bed is available. Real Plunkett MD Aug 09, 2017 09:58
[2017-08-09] MEDS: guaiFENesin E.R. 600 MG TAB PO SCH ×2 (10:00→20:32)
--- NOTE | 2017-08-09 13:14 | HHI.PR ---
Subjective Remarks ALERT NO DISTRESS Objective Vital Signs Date Time Temp Pulse Resp B/P (MAP) Pulse Ox O2 Delivery O2 Flow Rate FiO2 08/09/17 07:56 93 Nasal Cannula 4.00 08/09/17 04:00 81 26 144/72 (96) 87 08/09/17 04:00 90 08/09/17 02:40 97 55 08/09/17 00:00 80 08/09/17 00:00 98.0 80 24 125/60 (81) 96 08/08/17 20:00 83 08/08/17 20:00 Nasal Cannula 4.00 08/08/17 19:50 94 Nasal Cannula 2.00 08/08/17 16:00 98.7 99 27 157/75 (102) 92 08/08/17 16:00 93 I/O 08/08/17 08/08/17 08/08/17 08/09/17 08/09/17 08/09/17 07:00 15:00 23:00 07:00 15:00 23:00 Intake Total 720 ml 550 ml 720 ml Output Total 1750 ml 3000 ml 900 ml Balance -1030 ml -2450 ml -180 ml Intake Oral 720 ml 550 ml 720 ml Output Urine Total 1750 ml 3000 ml 900 ml # Bowel Movements 1 1 Result Diagram: 08/08/1742708/08/17427 Objective Remarks GENERAL: SKIN: Warm and dry. HEAD: Atraumatic. Normocephalic. EYES: Pupils equal and round. No scleral icterus. No injection or drainage. ENT: No nasal bleeding or discharge. Mucous membranes pink and moist. NECK: Trachea midline. No JVD. CARDIOVASCULAR: Regular rate and rhythm. RESPIRATORY: No accessory muscle use. Clear to auscultation. Breath sounds equal bilaterally. GASTROINTESTINAL: Abdomen soft, non-tender, nondistended. Hepatic and splenic margins not palpable.COLOSTOMY BAG IN PLACE MUSCULOSKELETAL: Extremities without clubbing, cyanosis, or edema. No obvious deformities. NEUROLOGICAL: Awake and alert. No obvious cranial nerve deficits. Motor grossly within normal limits. Five out of 5 muscle strength in the arms and legs. Normal speech. PSYCHIATRIC: Appropriate mood and affect; insight and judgment normal. Assessment and Plan Assessment and Plan IMPRESSION RESPIRATORY FAILURE COPD KAILYN/CSA MORBID OBESITY PLAN O2/BIPAP NEEDED BRONCHODILATOR THERAPY LOOSE WT INCREASE ACTIVITY Magy Bhatti MD 24, 2018 13:14
[2017-08-09] MEDS: LORazepam 0.5 MG TAB PO PRN (14:12)
[2017-08-09] MEDS: QUEtiapine FUMARATE 200 MG TAB PO SCH (20:32)
[2017-08-09] MEDS: AMITRIPTYLINE HCL 75 MG TAB PO SCH (20:32)
[2017-08-10] VITALS (11 sets, daily range): BP systolic 130–156; BP diastolic 62–99; PULSE 80–94; RESP 18–26; TEMP 97.7–98.4; O2SAT 92–98
[2017-08-10] MEDS: CHLORHEXIDINE GLUCONATE 2 % 1 PACK (2 CLOTHS) TOP SCH (04:00)
[2017-08-10] MEDS: ARTIFICIAL TEARS OPTH SOLN 15 ML BTL LEFT EYE SCH ×3 (04:27→21:28)
[2017-08-10] MEDS: HEPARIN SODIUM - SQ 10,000 UNITS/ML VIAL SQ SCH ×3 (04:27→21:27)
[2017-08-10] MEDS: AMITRIPTYLINE HCL 25 MG TAB PO SCH (04:27)
[2017-08-10] MEDS: ACETAMINOPHEN/HYDROcodone 325 MG/5 MG TAB PO PRN ×4 (04:28→21:35)
[2017-08-10] MEDS: CHLORHEXIDINE 0.12% (ORAL KIT) 15 ML CUP MT SCH ×2 (08:00→20:00)
[2017-08-10] MEDS: GABAPENTIN 300 MG CAP PO SCH ×3 (08:29→15:49)
[2017-08-10] MEDS: FAMOTIDINE 20 MG TAB PO SCH ×2 (08:29→21:27)
[2017-08-10] MEDS: DOCUSATE SODIUM 50 MG/SENNA 8.6 MG TAB PO SCH ×2 (08:29→21:27)
[2017-08-10] MEDS: busPIRone HCL 10 MG TAB PO SCH (08:29)
[2017-08-10] MEDS: BUDESONIDE-FORMOTEROL 80/4.5 MCG INHALER INH SCH ×2 (08:29→21:27)
[2017-08-10] MEDS: CYANOCOBALAMIN 1,000 MCG TAB PO SCH (08:30)
[2017-08-10] MEDS: PREGABALIN 100 MG CAP PO SCH ×3 (08:30→15:49)
[2017-08-10] MEDS: ASPIRIN 81 MG CHEW TAB CHEW SCH (08:30)
[2017-08-10] MEDS: guaiFENesin E.R. 600 MG TAB PO SCH ×2 (08:30→21:27)
[2017-08-10] MEDS: QUEtiapine FUMARATE 100 MG TAB PO SCH (08:30)
[2017-08-10] MEDS: SODIUM CHLORIDE 0.9% FLUSH 10 ML FLUSH IV FLUSH SCH ×2 (08:31→21:00)
[2017-08-10] MEDS: methylPREDNISolone SOD SUCC 40 MG/1 ML VIAL IV PUSH SCH (08:31)
[2017-08-10 10:45] LABS: AUTOMATED NEUTROPHIL # 8.2 TH/MM3 (1.8-7.7); BASOPHIL % 0.4 % (0.0-2.0); EOSINOPHIL % 0.3 % (0.0-4.0); HEMATOCRIT 42.9 % (35.0-46.0); HEMOGLOBIN 13.5 GM/DL (11.6-15.3); LYMPHOCYTE # 1.2 TH/MM3 (1.0-4.8); MEAN CORPUSCULAR HGB CONC 31.4 % (32.0-36.0); MEAN PLATELET VOLUME 9.3 FL (7.0-11.0); MONO % 5.7 % (0.0-8.0); MONOCYTE # 0.6 TH/MM3 (0-0.9); NEUT % 81.6 % (16.0-70.0); PLATELET COUNT 168 TH/MM3 (150-450); RED BLOOD COUNT 4.98 MIL/MM3 (4.00-5.30)
[2017-08-10 12:36] LABS: BICARBONATE 31.5 MEQ/L (21.0-32.0); CALCIUM 9.5 MG/DL (8.5-10.1); CREATININE 0.56 MG/DL (0.50-1.00)
--- NOTE | 2017-08-10 13:03 | HHI.PR ---
Subjective Remarks She is alert and on O2 4L Has no leg edema. On antibiotics for MRSA, pneumonia and UTI Objective Vital Signs Date Time Temp Pulse Resp B/P (MAP) Pulse Ox O2 Delivery O2 Flow Rate FiO2 08/10/17 08:19 95 Nasal Cannula 4.00 08/10/17 08:00 86 08/10/17 08:00 98.3 86 22 156/86 (109) 94 08/10/17 07:00 95 Nasal Cannula 4.00 08/10/17 04:00 98.3 83 26 130/99 (109) 92 08/10/17 04:00 83 08/10/17 03:21 93 Nasal Cannula 4.00 08/10/17 00:24 96 Nasal Cannula 4.00 08/10/17 00:00 80 08/10/17 00:00 98.3 80 24 136/71 (92) 93 08/09/17 20:00 92 08/09/17 20:00 97.9 92 21 157/74 (101) 93 08/09/17 19:44 93 Nasal Cannula 4.00 08/09/17 19:00 93 Nasal Cannula 4.00 08/09/17 16:00 92 08/09/17 16:00 98.7 92 28 168/108 (128) 93 I/O 08/09/17 08/09/17 08/09/17 08/10/17 08/10/17 08/10/17 07:00 15:00 23:00 07:00 15:00 23:00 Intake Total 720 ml 800 ml 240 ml Output Total 900 ml 5500 ml 1200 ml Balance -180 ml -4700 ml -960 ml Intake Oral 720 ml 800 ml 240 ml Output Urine Total 900 ml 5500 ml 1200 ml # Bowel Movements 1 Result Diagram: 08/10/17 0947 08/10/17 0947 Objective Remarks GENERAL: This is a very obese, middle-aged white female who is awake, pale and not dyspneic. HEENT: Head is normocephalic. Pupils are reactive and equal. Tongue is moist. Throat is clear. Nasal mucosa is edematous. NECK: Supple, no bruits or thyroid enlargement, no lymphadenopathy. CHEST: Equal movements with decreased excursions and wheezes were scattered with occasional basal crackles. HEART: Sounds are irregular, S1 and S2. No murmur. No S3. ABDOMEN: Soft, protuberant, no mass. No organomegaly, tenderness. Bowel sounds are active. EXTREMITIES: No edema with diminished peripheral pulses. Reflexes are 1+, with no gross motor deficits. SKIN: No lesions observed. Assessment and Plan Assessment and Plan IMPRESSION: 1. Hypercapnic respiratory failure, resolving. 2. Obstructive sleep apnea. 3. Chronic obstructive pulmonary disease and reactive airways. 4. Hypertension. 5. Urinary tract infection. 6. Extreme obesity. Plan: 1. Continue antibiotics per ID 2. Wean O2 to N/C 4 L. 3. BiPAP at HS 15/5 CM Fio2 35 % 4. Nebs qid , Duoneb. 5. D/C Solumedrol 6. Prednisone 20 mg daily 7. Cont Heparin 5000 U Q8H Cesar Woodard MD Aug 10, 2017 13:03
--- NOTE | 2017-08-10 13:10 | HHI.PR ---
Subjective Remarks States that her breathing is better. No active shortness of breath. Minor wheezing at times. No complaint of chest pain. When she is at her long-term care she is on 3 L of oxygen. Objective Vitals Vital Signs Date Time Temp Pulse Resp B/P (MAP) Pulse Ox O2 Delivery O2 Flow Rate FiO2 08/10/17 08:19 95 Nasal Cannula 4.00 08/10/17 08:00 86 08/10/17 08:00 98.3 86 22 156/86 (109) 94 08/10/17 07:00 95 Nasal Cannula 4.00 08/10/17 04:00 98.3 83 26 130/99 (109) 92 08/10/17 04:00 83 08/10/17 03:21 93 Nasal Cannula 4.00 08/10/17 00:24 96 Nasal Cannula 4.00 08/10/17 00:00 80 08/10/17 00:00 98.3 80 24 136/71 (92) 93 08/09/17 20:00 92 08/09/17 20:00 97.9 92 21 157/74 (101) 93 08/09/17 19:44 93 Nasal Cannula 4.00 08/09/17 19:00 93 Nasal Cannula 4.00 08/09/17 16:00 92 08/09/17 16:00 98.7 92 28 168/108 (128) 93 I/O 08/09/17 08/09/17 08/09/17 08/10/17 08/10/17 08/10/17 07:00 15:00 23:00 07:00 15:00 23:00 Intake Total 720 ml 800 ml 240 ml Output Total 900 ml 5500 ml 1200 ml Balance -180 ml -4700 ml -960 ml Intake Oral 720 ml 800 ml 240 ml Output Urine Total 900 ml 5500 ml 1200 ml # Bowel Movements 1 Result Diagram: 08/10/17 0947 08/10/17 0947 Objective Remarks GENERAL: This is a well-nourished, obese well-developed patient, in no apparent distress. CARDIOVASCULAR: Regular rate and rhythm RESPIRATORY: Diminished breath sounds bilaterally with few expiratory wheeze GASTROINTESTINAL: Abdomen soft, non-tender, obese nondistended. Normal active bowel sounds, ostomy in place MUSCULOSKELETAL: Extremities without clubbing, cyanosis, 1+ edema NEURO: Alert & Oriented x4 to person, place, time, situation. Moves all ext x4 Procedures None A/P Assessment and Plan 1. Acute hypoxic and hypercapnic on chronic respiratory failure: Improving slowly. No longer requiring high flow oxygen. Now on 3 L per nasal cannula. Appreciate pulmonology recommendations. BiPAP at night. Continue supplemental oxygen. Patient is reportedly on 3 L of oxygen continuously at home. Add Mucinex. 2. ESBL E. coli UTI: Appreciate infectious disease recommendations. Switched from meropenem to oral Levaquin. Discontinue Ocampo catheter through today. 3. COPD exacerbation: Improved. Continue bronchodilators and nebs. Taper steroids. 4. Possible acute exacerbation of chronic diastolic congestive heart failure: Continue diuresis, Lasix. Echocardiogram shows ejection fraction 55-60%. 5. Anxiety/depression: Continue Elavil, BuSpar, Seroquel. 6. Likely obstructive sleep apnea: Continue BiPAP at night. 7. GI prophylaxis: Famotidine. 8. DVT prophylaxis: Heparin. 9. Recent MRSA pneumonia: Appreciate infectious disease and pulmonology recommendations. Discharge Planning Transfer to [facility] floor Possible discharge back to [facility] and rehab in the next 24-48 hours based on clinical course Mary Davis MD Aug 10, 2017 13:10
[2017-08-10] MEDS ORDERED: FUROSEMIDE 20 MG TAB PO ONE (13:30)
[2017-08-10] MEDS: LORazepam 0.5 MG TAB PO PRN (18:19)
[2017-08-10] MEDS: AMITRIPTYLINE HCL 75 MG TAB PO SCH (21:26)
[2017-08-10] MEDS: QUEtiapine FUMARATE 200 MG TAB PO SCH (21:26)
[2017-08-10] MEDS: predniSONE 10 MG TAB PO SCH (21:27)
[2017-08-11] VITALS (13 sets, daily range): BP systolic 119–161; BP diastolic 59–97; PULSE 77–97; RESP 19–34; TEMP 97.6–98.3; O2SAT 90–100
[2017-08-11] MEDS: CHLORHEXIDINE GLUCONATE 2 % 1 PACK (2 CLOTHS) TOP SCH (04:00)
[2017-08-11] MEDS: ACETAMINOPHEN/HYDROcodone 325 MG/5 MG TAB PO PRN ×5 (04:06→23:38)
[2017-08-11] MEDS: HEPARIN SODIUM - SQ 10,000 UNITS/ML VIAL SQ SCH ×3 (06:12→21:23)
[2017-08-11] MEDS: ARTIFICIAL TEARS OPTH SOLN 15 ML BTL LEFT EYE SCH ×3 (06:12→21:25)
[2017-08-11] MEDS: AMITRIPTYLINE HCL 25 MG TAB PO SCH (06:43)
[2017-08-11] MEDS: CHLORHEXIDINE 0.12% (ORAL KIT) 15 ML CUP MT SCH ×2 (08:00→19:42)
[2017-08-11] MEDS: PREGABALIN 100 MG CAP PO SCH ×3 (09:04→18:04)
[2017-08-11] MEDS: guaiFENesin E.R. 600 MG TAB PO SCH ×2 (09:04→21:23)
[2017-08-11] MEDS: ASPIRIN 81 MG CHEW TAB CHEW SCH (09:04)
[2017-08-11] MEDS: GABAPENTIN 300 MG CAP PO SCH ×3 (09:04→18:04)
[2017-08-11] MEDS: QUEtiapine FUMARATE 100 MG TAB PO SCH (09:04)
[2017-08-11] MEDS: predniSONE 10 MG TAB PO SCH ×2 (09:05→21:24)
[2017-08-11] MEDS: CYANOCOBALAMIN 1,000 MCG TAB PO SCH (09:05)
[2017-08-11] MEDS: FUROSEMIDE 20 MG TAB PO SCH (09:05)
[2017-08-11] MEDS: FAMOTIDINE 20 MG TAB PO SCH ×2 (09:05→21:24)
[2017-08-11] MEDS: DOCUSATE SODIUM 50 MG/SENNA 8.6 MG TAB PO SCH ×2 (09:05→21:24)
[2017-08-11] MEDS: busPIRone HCL 10 MG TAB PO SCH (09:05)
[2017-08-11] MEDS: BUDESONIDE-FORMOTEROL 80/4.5 MCG INHALER INH SCH ×2 (09:06→21:25)
[2017-08-11] MEDS: SODIUM CHLORIDE 0.9% FLUSH 10 ML FLUSH IV FLUSH SCH ×2 (09:07→21:25)
[2017-08-11] MEDS: RESP: ALBUTEROL 2.5 MG/IPRATROPIUM 0.5 MG NEB (PRN) INH (09:27)
--- NOTE | 2017-08-11 13:21 | HHI.PR ---
Subjective Remarks Patient states that he wants to stay 1 more night prior to discharge back to [facility] and rehab. She states that she does not have a CPAP at night and would like to try to see how she does without BiPAP tonight. She is in the process of getting arrangements for outpatient sleep study. Objective Vitals Vital Signs Date Time Temp Pulse Resp B/P (MAP) Pulse Ox O2 Delivery O2 Flow Rate FiO2 08/11/17 09:27 95 Nasal Cannula 3.00 08/11/17 09:00 97 27 148/77 (100) 95 08/11/17 09:00 97 08/11/17 08:00 98.0 85 24 155/79 (104) 97 08/11/17 08:00 95 Nasal Cannula 3.00 08/11/17 08:00 85 08/11/17 07:00 78 34 152/79 (103) 100 08/11/17 07:00 78 08/11/17 04:04 97 Nasal Cannula 4.00 08/11/17 04:00 83 08/11/17 04:00 98.3 83 24 143/94 (110) 96 08/11/17 00:01 93 BiPAP 08/11/17 00:00 97.6 77 25 119/67 (84) 90 08/11/17 00:00 77 08/10/17 23:58 93 55 08/10/17 20:00 89 08/10/17 20:00 98.2 89 26 141/69 (93) 92 08/10/17 19:48 98 Nasal Cannula 4.00 08/10/17 19:00 96 Nasal Cannula 4.00 08/10/17 16:00 98.4 87 22 132/62 (85) 95 08/10/17 16:00 87 I/O 08/10/17 08/10/17 08/10/17 08/11/17 08/11/17 08/11/17 07:00 15:00 23:00 07:00 15:00 23:00 Intake Total 240 ml 820 ml 600 ml Output Total 1200 ml 2000 ml Balance -960 ml -2000 ml 820 ml 600 ml Intake Oral 240 ml 720 ml 600 ml IV Total 100 ml Output Urine Total 1200 ml 2000 ml # Voids 3 3 Result Diagram: 08/10/1747 08/10/17 0947 Objective Remarks GENERAL: This is a well-nourished, obese well-developed patient, in no apparent distress. CARDIOVASCULAR: Regular rate and rhythm RESPIRATORY: Diminished breath sounds bilaterally without wheezes GASTROINTESTINAL: Abdomen soft, non-tender, obese nondistended. Normal active bowel sounds, ostomy in place MUSCULOSKELETAL: Extremities without clubbing, cyanosis, 1+ edema NEURO: Alert & Oriented x4 to person, place, time, situation. Moves all ext x4 Procedures None A/P Assessment and Plan 1. Acute hypoxic and hypercapnic on chronic respiratory failure: Improving slowly. No longer requiring high flow oxygen. Now on 3 L per nasal cannula. Appreciate pulmonology recommendations. BiPAP at night and will attempt a trial without BiPAP as she does not have BiPAP at her long-term care at this time. Primary care physician is in the process of arrange for outpatient sleep study. Continue supplemental oxygen. Patient is reportedly on 3 L of oxygen continuously at long-term care. Add Mucinex. 2. ESBL E. coli UTI: Appreciate infectious disease recommendations. Switched from meropenem to oral Bactrim for 4 more days for total 14 day treatment. Discontinue Ocampo catheter yesterday. 3. COPD exacerbation: Improved. Continue bronchodilators and nebs. Taper steroids. 4. Possible acute exacerbation of chronic diastolic congestive heart failure: Continue diuresis, Lasix. Echocardiogram shows ejection fraction 55-60%. 5. Anxiety/depression: Continue Elavil, BuSpar, Seroquel. 6. Likely obstructive sleep apnea: Continue BiPAP at night. 7. GI prophylaxis: Famotidine. 8. DVT prophylaxis: Heparin. Discharge Planning Transfer to [facility] floor Possible discharge back to [facility] and rehab in the next 24 hours based on clinical course Mary Davis MD Aug 11, 2017 13:21
--- NOTE | 2017-08-11 19:22 | HHI.PR ---
Subjective Remarks She is better and on O2 3 L. Using BiPAP at HS Has no leg edema. Objective Vital Signs Date Time Temp Pulse Resp B/P (MAP) Pulse Ox O2 Delivery O2 Flow Rate FiO2 08/11/17 17:00 93 27 151/72 (98) 91 08/11/17 16:00 92 08/11/17 16:00 97.7 92 27 161/97 (118) 91 08/11/17 12:00 98.1 97 30 152/70 (97) 90 08/11/17 12:00 97 08/11/17 09:27 95 Nasal Cannula 3.00 08/11/17 09:00 97 27 148/77 (100) 95 08/11/17 09:00 97 08/11/17 08:00 98.0 85 24 155/79 (104) 97 08/11/17 08:00 95 Nasal Cannula 3.00 08/11/17 08:00 85 08/11/17 07:00 78 34 152/79 (103) 100 08/11/17 07:00 78 08/11/17 04:04 97 Nasal Cannula 4.00 08/11/17 04:00 83 08/11/17 04:00 98.3 83 24 143/94 (110) 96 08/11/17 00:01 93 BiPAP 08/11/17 00:00 97.6 77 25 119/67 (84) 90 08/11/17 00:00 77 08/10/17 23:58 93 55 08/10/17 20:00 89 08/10/17 20:00 98.2 89 26 141/69 (93) 92 08/10/17 19:48 98 Nasal Cannula 4.00 I/O 08/10/17 08/10/17 08/10/17 08/11/17 08/11/17 08/11/17 07:00 15:00 23:00 07:00 15:00 23:00 Intake Total 240 ml 820 ml 600 ml 1800 ml Output Total 1200 ml 2000 ml 3500 ml Balance -960 ml -2000 ml 820 ml 600 ml -1700 ml Intake Oral 240 ml 720 ml 600 ml 1800 ml IV Total 100 ml Output Urine Total 1200 ml 2000 ml 3500 ml # Voids 3 3 Result Diagram: 08/10/17 0947 08/10/17 0947 Objective Remarks GENERAL: This is a very obese, middle-aged white female who is awake, andin no distress HEENT: Head is normocephalic. Pupils are reactive and equal. Tongue is moist. Throat is clear. Nasal mucosa is edematous. NECK: Supple, no bruits or thyroid enlargement, no lymphadenopathy. CHEST: Equal movements with decreased excursions and wheezes were scattered .. HEART: Sounds are regular, S1 and S2. No murmur. ABDOMEN: Soft, protuberant, no mass. No organomegaly, tenderness. Bowel sounds are active. EXTREMITIES: No edema with diminished peripheral pulses. Reflexes are 1+, with no gross motor deficits. SKIN: No lesions observed. Assessment and Plan Assessment and Plan IMPRESSION: 1. Hypercapnic respiratory failure, resolving. 2. Obstructive sleep apnea. 3. Chronic obstructive pulmonary disease and reactive airways. 4. Hypertension. 5. Urinary tract infection. 6. Extreme obesity. Plan: 1. Continue antibiotics per ID 2. Wean O2 to N/C 4 L. 3. BiPAP at HS 15/5 CM Fio2 35 % 4. Nebs qid , Duoneb. 5. Will Arrange Home sleep test. 6. Prednisone 20 mg daily and taper 7. Cont Heparin 5000 U Q8H Cesar Woodard MD Aug 11, 2017 19:22
[2017-08-11] MEDS: AMITRIPTYLINE HCL 75 MG TAB PO SCH (21:24)
[2017-08-11] MEDS: SULFAMETHOXAZOLE-TRIMETHOPRIM DS 800-160 MG TAB PO SCH (21:24)
[2017-08-11] MEDS: QUEtiapine FUMARATE 200 MG TAB PO SCH (21:24)
[2017-08-12 00:23] VITALS: O2SAT 98
[2017-08-12 02:30] VITALS: BP 120/78; PULSE 79; RESP 16; TEMP 97.2; O2SAT 95
[2017-08-12] MEDS: CHLORHEXIDINE GLUCONATE 2 % 1 PACK (2 CLOTHS) TOP SCH (04:00)
[2017-08-12 04:18] VITALS: O2SAT 96
[2017-08-12] MEDS: ACETAMINOPHEN/HYDROcodone 325 MG/5 MG TAB PO PRN ×3 (05:27→13:21)
[2017-08-12] MEDS: HEPARIN SODIUM - SQ 10,000 UNITS/ML VIAL SQ SCH ×2 (05:29→13:22)
[2017-08-12] MEDS: ARTIFICIAL TEARS OPTH SOLN 15 ML BTL LEFT EYE SCH ×2 (05:31→13:22)
[2017-08-12 08:00] VITALS: BP 123/56; PULSE 82; RESP 18; TEMP 97.9; O2SAT 98
[2017-08-12] MEDS: CHLORHEXIDINE 0.12% (ORAL KIT) 15 ML CUP MT SCH (08:00)
[2017-08-12] MEDS: predniSONE 10 MG TAB PO SCH (08:49)
[2017-08-12] MEDS: ASPIRIN 81 MG CHEW TAB CHEW SCH (08:49)
[2017-08-12] MEDS: SULFAMETHOXAZOLE-TRIMETHOPRIM DS 800-160 MG TAB PO SCH (08:49)
[2017-08-12] MEDS: guaiFENesin E.R. 600 MG TAB PO SCH (08:49)
[2017-08-12] MEDS: PREGABALIN 100 MG CAP PO SCH ×2 (08:50→13:22)
[2017-08-12] MEDS: busPIRone HCL 10 MG TAB PO SCH (08:50)
[2017-08-12] MEDS: GABAPENTIN 300 MG CAP PO SCH ×2 (08:50→13:21)
[2017-08-12] MEDS: QUEtiapine FUMARATE 100 MG TAB PO SCH (08:51)
[2017-08-12] MEDS: FAMOTIDINE 20 MG TAB PO SCH (08:51)
[2017-08-12] MEDS: FUROSEMIDE 20 MG TAB PO SCH (08:52)
[2017-08-12] MEDS: CYANOCOBALAMIN 1,000 MCG TAB PO SCH (08:52)
[2017-08-12] MEDS: DOCUSATE SODIUM 50 MG/SENNA 8.6 MG TAB PO SCH (08:53)
[2017-08-12] MEDS: SODIUM CHLORIDE 0.9% FLUSH 10 ML FLUSH IV FLUSH SCH (08:53)
[2017-08-12] MEDS: BUDESONIDE-FORMOTEROL 80/4.5 MCG INHALER INH SCH (08:54)
[2017-08-12] MEDS ORDERED: SULF1TAB23 PO (08:59)
[2017-08-12] MEDS ORDERED: PRED10 PO (08:59)
[2017-08-12] MEDS: AMITRIPTYLINE HCL 25 MG TAB PO SCH (08:59)
[2017-08-12] MEDS ORDERED: LORA-392 PO (08:59)
--- NOTE | 2017-08-12 10:23 | HHI.DS ---
Discharge Summary Admission Date Aug 01, 2017 at 04:54 Discharge Date: Aug 12, 2017 Admitting Diagnosis urosepsis, respiratory failure, hypercap (1) Acute respiratory failure with hypoxia and hypercarbia ICD Code: J96.01 - Acute respiratory failure with hypoxia; J96.02 - Acute respiratory failure with hypercapnia Diagnosis: Principal Status: Resolved (2) E-coli UTI ICD Code: N39.0 - Urinary tract infection, site not specified; B96.20 - Unspecified Escherichia coli [E. coli] as the cause of diseases classified elsewhere Diagnosis: Secondary Status: Resolved (3) Acute exacerbation of chronic obstructive pulmonary disease (COPD) ICD Code: J44.1 - Chronic obstructive pulmonary disease with (acute) exacerbation Diagnosis: Secondary Status: Acute (4) Morbid obesity with body mass index of 50 or higher ICD Code: E66.01 - Morbid (severe) obesity due to excess calories Diagnosis: Secondary Status: Acute (5) Chronic hypercapnic respiratory failure ICD Code: J96.12 - Chronic respiratory failure with hypercapnia Diagnosis: Secondary Status: Acute Procedures None Patient was intubated in the field by paramedics Brief History - From Admission 57-year-old morbidly obese female, care home resident, the EMT was called for respiratory distress, patient was obtunded with CO2 140 and was intubated by paramedics. No further history is obtainable CBC/BMP: 08/10/17 0947 08/10/17 0947 Significant Findings Laboratory Tests Test 08/10/17 09:47 Mean Corpuscular Hemoglobin Concent 31.4 % (32.0-36.0) Neutrophils (%) (Auto) 81.6 % (16.0-70.0) Neutrophils # (Auto) 8.2 TH/MM3 (1.8-7.7) Blood Urea Nitrogen 19 MG/DL (7-18) Chloride Level 97 MEQ/L (98-107) Imaging Last Impressions Chest X-Ray 08/07/17 0600 Signed Impressions: CONCLUSION: No significant change. Abdomen X-Ray 08/05/17 0000 Signed Impressions: CONCLUSION: Benign-appearing bowel gas pattern. There is atelectasis or consolidation in the left lower lobe. PE at Discharge GENERAL: This is a well-nourished, obese well-developed patient, in no apparent distress. CARDIOVASCULAR: Regular rate and rhythm RESPIRATORY: Diminished breath sounds bilaterally without wheezes GASTROINTESTINAL: Abdomen soft, non-tender, obese nondistended. Normal active bowel sounds, ostomy in place MUSCULOSKELETAL: Extremities without clubbing, cyanosis, 1+ edema NEURO: Alert & Oriented x4 to person, place, time, situation. Moves all ext x4 Pt update on day of discharge Patient states that her breathing is better. She is worried about returning back to [place] and rehab secondary to second head smoke exposure. She states of the have a smoking section in non-smoking section however due to overflow sometimes that cannot be regulated well. She is looking forward to her sleep study arrange as an outpatient to be able to get her CPAP Hospital Course These are the medical issues addressed during this hospitalization: 1. Acute hypoxic and hypercapnic on chronic respiratory failure: Was initially intubated in the field and placed on mechanical ventilation and extubated by the intensive care service. Her respiratory status is now improving slowly. No longer requiring high flow oxygen. Now on 3 to 4 l per nasal cannula. Appreciate pulmonology, Dr. Don recommendations. BiPAP at night and will attempt a trial without BiPAP as she does not have BiPAP at her long-term care at this time. Primary care physician is in the process of arrange for outpatient sleep study. Continue supplemental oxygen. Patient is reportedly on 3 L of oxygen continuously at long-term care. Add Mucinex. And continue with DuoNeb treatments during the hospitalization 2. ESBL E. coli UTI: Appreciate infectious disease recommendations. Switched from meropenem to oral Bactrim for 4 more days for total 14 day treatment. Discontinue Ocampo catheter 08/10. 3. COPD exacerbation: Improved. Continue bronchodilators and nebs. Taper steroids. Oral prednisone prescribed with tapering recommendations. 4. chronic diastolic congestive heart failure: Continue diuresis, Lasix. Echocardiogram shows ejection fraction 55-60%. 5. Anxiety/depression: Continue Elavil, BuSpar, Seroquel. 6. Likely obstructive sleep apnea: Continue BiPAP at night. Sleep study to be arranged as an outpatient. 7. GI prophylaxis: Famotidine. 8. DVT prophylaxis: Heparin. Pt Condition on Discharge: Good Discharge Disposition: Discharge to SNF Discharge Time: <= 30 minutes Discharge Instructions DIET: Follow Instructions for: Heart Healthy Diet Activities you can perform: Regular-No Restrictions Follow up Referrals: PCP Follow-up - 1 Week New Medications: Prednisone (Prednisone) 10 Mg Tab 10 MG PO BID for decrease inflammation, #10 TAB take one tablet (10mg) twice a day for 3 days then once a day for 4 days Sulfamethoxazole-Trimethoprim (Sulfamethoxazole-Trimethoprim) 800-160 Mg Tab 1 TAB PO Q12HR for Infection, #6 TAB Continued Medications: Albuterol Neb (Albuterol Neb) 2.5 Mg/3 Ml Neb 2.5 MG NEB Q8HR NEB PRN for SHORTNESS OF BREATH, NEBULE Amitriptyline (Amitriptyline) 50 Mg Tab 75 MG PO HS for Control Depression, TAB 25mg tab give 25mg before breakfast 75mg tablet give 1 tablet at hs Amitriptyline (Amitriptyline) 25 Mg Tab 25 MG PO AC BREAKFAST, TAB Artificial Saliva Liq (Biotene Moisturizing Mouth Byron Liq) 1 Byron 3 SPRAY PO BID for Dry Mouth, #45 ML 0 Refills Aspirin (Aspirin) 81 Mg Chew 81 MG CHEW DAILY, TAB Budesonide-Formoterol Inh (Symbicort Inh) 80-4.5 Mcg/Act Aero 2 PUFF INH Q12HR for Asthma Management, #1 INHALER 0 Refills Buspirone (Buspirone) 10 Mg Tab 10 MG PO DAILY for Anxiety, TAB 0 Refills Cyanocobalamin (Vitamin B-12) 500 Mcg Tab 500 MCG PO DAILY for Nutritional Supplement, #1 BOTTLE 0 Refills Diltiazem (Diltiazem) 60 Mg Tab 60 MG PO DAILY for Blood Pressure Management, #120 TAB 0 Refills Gabapentin (Neurontin) 300 Mg Cap 1200 MG PO TID, #90 CAP 0 Refills Guaifenesin/Dextromethorphan (Mucinex Dm ER 1,200-60 mg Tab) 1,200 Mg-60 Mg Tab.er.12h 600 MG PO BID Ibuprofen (Ibuprofen) 400 Mg Tab 400 MG PO Q8H PRN for PAIN SCALE 1 TO 10, TAB 0 Refills Ipratropium-Albuterol Neb (Duoneb) 0.5-2.5 Mg/3 Ml Neb 1 AMPULE INH Q6HR PRN for WHEEZING for 7 Days, ML Lorazepam (Ativan) 0.5 Mg Tab 0.5 MG PO Q12HR PRN for ANXIETY AND/OR AGITATION, #10 TAB 0 Refills (This prescription has been renewed) Omeprazole (Omeprazole) 20 Mg Tab 20 MG PO DAILY, #30 TAB 0 Refills Pregabalin (Lyrica) 75 Mg Cap 100 MG PO TID, #60 CAP 0 Refills Quetiapine (Quetiapine) 100 Mg Tab 100 MG PO DAILY, #30 TAB 0 Refills Quetiapine (Quetiapine) 200 Mg Tab 200 MG PO HS, #30 TAB 0 Refills Discontinued Medications: Azithromycin (Zithromax) 250 Mg Tab 250 MG PO DIRECTED for Infection, #6 TAB 0 Refills Take 2 tabs (500 mg) on day 1 then 1 tab daily x 4 days. Mupirocin Nasal Oint (Bactroban Nasal Oint) 2% Oint 1 APPLIC EACH NARE BID for nasal mrsa , #1 TUBE Single-use tubes. end date of use 06/03/17 apply intranasally bid Tuberculin Ppd (Aplisol) 5 Tub. Unit/0.1 Ml Inj Mary Davis MD Aug 12, 2017 10:23
[2017-08-12 12:00] VITALS: BP 100/53; PULSE 95; RESP 18; TEMP 97.8; O2SAT 98
== END 2017-08-12 15:45 | DRG 208 ==
LOC: NEPC 02:04 → NEDA 04:54 → HIMN 06:20 → N05A 08-11 22:31
PROVIDERS: ADMIT Hospitalist; ATTEND Hospitalist
PROC: 5A1935Z Respiratory Ventilation, Less than 24 Consecutive Hours (ICD-10-PCS; 2017-08-01)
PROC: 5A09457 Assistance with Respiratory Ventilation, 24-96 Consecutive Hours, Continuous Positive Airway Pressure (ICD-10-PCS; principal; 2017-08-04)
DX: J96.22 Acute and chronic respiratory failure with hypercapnia (principal); J18.9 Pneumonia, unspecified organism; I11.0 Hypertensive heart disease with heart failure; J44.0 Chronic obstructive pulmonary disease with (acute) lower respiratory infection; E11.40 Type 2 diabetes mellitus with diabetic neuropathy, unspecified; I50.32 Chronic diastolic (congestive) heart failure; K57.92 Diverticulitis of intestine, part unspecified, without perforation or abscess without bleeding; J44.1 Chronic obstructive pulmonary disease with (acute) exacerbation; Z68.43 Body mass index [BMI] 50.0-59.9, adult; N39.0 Urinary tract infection, site not specified; J98.11 Atelectasis; E66.2 Morbid (severe) obesity with alveolar hypoventilation; J96.21 Acute and chronic respiratory failure with hypoxia; Z99.81 Dependence on supplemental oxygen; F41.9 Anxiety disorder, unspecified; F32.9 Major depressive disorder, single episode, unspecified; E56.9 Vitamin deficiency, unspecified; E87.5 Hyperkalemia; M54.9 Dorsalgia, unspecified; D64.9 Anemia, unspecified; B96.20 Unspecified Escherichia coli [E. coli] as the cause of diseases classified elsewhere; K21.9 Gastro-esophageal reflux disease without esophagitis; Z16.12 Extended spectrum beta lactamase (ESBL) resistance; Z87.01 Personal history of pneumonia (recurrent); Z86.14 Personal history of Methicillin resistant Staphylococcus aureus infection; Z93.3 Colostomy status; Z98.84 Bariatric surgery status; Z79.82 Long term (current) use of aspirin
CPT/HCPCS: 36600; 71045; 74018; 76937; 80048; 80053; 80202; 81001; 82010; 82550; 82805; 82948; 83605; 83735; 84100; 84484; 85025; 85027; 85610; 85730; 87040; 87077; 87086; 87186; 87641; 93005; 93306; 94002; 94003; 94150; 94640; 94664; 94667; 94668; J0696; J1644; J1940; J1956; J2185; J2920; J2930; J3010; J3370; J3475; J7030; J7040; J7050; J7512